=== PATIENT | female | born 1955 | race Two or more races ===

== ENCOUNTER 2024-12-25 14:03 | Observation (INO) ==
[2024-12-25] MEDS: ALBUT/IPRATROP 3MG/0.5MG NEB 3 ML VIAL NEB STA (14:30)
[2024-12-25 14:43] LABS: HCO3 VBG 27 mmol/L; Oxygen Saturation VBG 77.4 %; PCO2 VBG 40 mmHg (38-50); PO2 VBG 47 mmHg; pH VBG 7.43 (7.36-7.41)
--- NOTE | 2024-12-25 14:48 | XRay Report ---
XR chest 1V portable CLINICAL HISTORY: Chest pain, nonspecific COMPARISON STUDY: 12/13/2024 FINDINGS: Stable mild cardiomegaly with pulmonary vascular congestion. There is a small left pleural effusion and associated consolidation at the left lung base, increased. No pneumothorax. IMPRESSION: CHF with small left pleural effusion/consolidation left lung base. ACT 112: Negative or not required by law. Electronically signed by: Oneil Kirby M.D. 12/25/2024 2:46 PM
[2024-12-25 14:50] LABS: Basophils # (auto) 0.02 K/uL (0.00-0.20); Basophils % (auto) 0.3 %; Hematocrit (blood only) 37.2 % (37.0-47.0); Immature Granulocytes # (auto) 0.02 K/uL (0.01-0.20); Immature Granulocytes % (auto) 0.3 %; Lymphocytes # (auto) 0.91 K/uL (1.20-3.40); Mean Corpuscular Hemoglobin 27.5 pg (25.0-34.0); Mean Corpuscular Hgb Conc 32.3 g/dL (32.0-36.0); Mean Corpuscular Volume 85.1 fL (80.0-100.0); Mean Platelet Volume 9.5 fL (9.4-12.4); Monocytes # (auto) 0.51 K/uL (0.11-0.59); Monocytes % (auto) 7.8 %; Neutrophils # (auto) 5.04 K/uL (1.40-6.50); Neutrophils % (auto) 77.6 %; Platelet Count 641 K/uL (130-400); RDW Coefficient of Variation 17.1 % (11.5-14.5); RDW Standard Deviation 52.5 fL (36.4-46.3); Red Blood Count 4.37 M/uL (4.20-5.40)
[2024-12-25 15:08] LABS: Albumin Level 3.2 gm/dl (3.4-5.0); BUN Creatinine Ratio 37.9 (10-20); Bilirubin,Total 0.7 mg/dl (0.2-1.0); Calcium 9.2 mg/dl (8.6-10.3); Creatinine Clr Calc Pharmacy 30.1 ml/min; Globulin 3.3 gm/dl (2.5-4.0); Potassium 3.3 mmol/L (3.5-5.1); Total Protein 6.5 gm/dl (6.0-8.3)
[2024-12-25 15:14] LABS: Troponin I High Sensitivity 39.6 pg/ml (0-14)
--- NOTE | 2024-12-25 15:19 | Electrocardiogram Report ---
Test Reason : Blood Pressure : */* mmHG Vent. Rate : 92 BPM Atrial Rate : 92 BPM P-R Int : 174 ms QRS Dur : 112 ms QT Int : 376 ms P-R-T Axes : 3 10 97 degrees QTcB Int : 464 ms Normal sinus rhythm Incomplete left bundle block Minimal voltage criteria for LVH, may be normal variant ( Humble product ) Diffuse Minor Nonspecific T wave abnormality Abnormal ECG No previous ECGs available Confirmed by Agus Paredes ([id number]) on 12/25/2024 3:19:51 PM Referred By: REFERRED SELF Confirmed By: Agus Paredes
[2024-12-25 15:36] LABS: Adenovirus PCR Not Detected (NotDetected); Bordetella parapertussis PCR Not Detected (NotDetected); Bordetella pertussis PCR Not Detected (NotDetected); Chlamydia pneumoniae PCR Not Detected (NotDetected); Coronavirus 229E PCR Not Detected (NotDetected); Coronavirus CoV-2 (COVID19)PCR Not Detected (NotDetected); Coronavirus HKU1 PCR Not Detected (NotDetected); Coronavirus NL63 PCR Not Detected (NotDetected); Coronavirus OC43PCR Not Detected (NotDetected); Human Metapneumovirus PCR Not Detected (NotDetected); Influenza A PCR Not Detected (NotDetected); Influenza B PCR Not Detected (NotDetected); Mycoplasma pneumoniae PCR Not Detected (NotDetected); Parainfluenza Virus 1 PCR Not Detected (NotDetected); Parainfluenza Virus 2 PCR Not Detected (NotDetected); Parainfluenza Virus 3 PCR Not Detected (NotDetected); Parainfluenza Virus 4 PCR Not Detected (NotDetected); Respiratory Syncytial VirusPCR Not Detected (NotDetected); Rhinovirus/Enterovirus PCR Not Detected (NotDetected)
[2024-12-25 15:40] LABS: Partial Thromboplastin Ratio 1.3; Partial Thromboplastin Time 36 Seconds (21-31)
--- NOTE | 2024-12-25 18:00 | History & Physical Report ---
Date of Service December 25, 2024 Assessment & Plan (1) Acute diastolic CHF (congestive heart failure): Plan: The parenteral Lasix therapy. Cardiac echo. Monitor intake and output. Serial chest x-ray (2) Chest pain: Plan: Check left ventricular wall motion per cardiac echo. Serial troponins. Telemetry. Repeat EKG in the morning (3) Hypothyroidism: Plan: Continue current thyroid replacement. Check free T3 level and free T4 level (4) Hypertension: Plan: Amlodipine has been discontinued as possible contributor to peripheral edema. Will follow (5) Type 2 diabetes mellitus: Plan: ADA diet. Sliding scale coverage as necessary. She does not appear to be insulin-dependent (6) COPD (chronic obstructive pulmonary disease): Plan: With asthma. Currently stable. Continue inhaler therapy Plan Hopeful discharge to home sometime within the next 2 to 3 days History of Present Illness Chief Complaint: Dyspnea on exertion, chest pain, elevated troponin, weight gain with peripheral edema Primary Care Provider: Davy Lyons 69-year-old white female with gradually worsening peripheral edema and noticeable dyspnea on exertion. Vague chest discomfort symptoms. Troponin is mildly elevated but no acute EKG changes. Some of the peripheral edema may be due to amlodipine which has been discontinued but she may have an element of CHF seen on chest x-ray with left effusion. Potassium is slightly low at 3.3 and troponin is mildly elevated at 39 but no acute EKG changes although she has evidence of first-degree AV block with incomplete left bundle branch block. She denies cough fever or sputum production. Potassium is low at 3.3. She is on room air. She is admitted with suspected CHF along with chest discomfort and dyspnea along with mildly elevated troponin and hypokalemia. Allergies Allergy/AdvReac Type Severity Reaction Status Date / Time metformin Allergy Severe Verified 12/20/24 11:10 aspirin AdvReac Difficulty Verified 12/20/24 11:10 Breathing Home Medications Medication Instructions Recorded Confirmed Type fenofibrate micronized 200 mg 200 mg PO DAILY 06/19/19 12/25/24 History capsule multivitamin 1 tab PO DAILY 06/19/19 12/25/24 History gabapentin 600 mg tablet 600 mg PO DAILY PRN Other 07/10/20 12/25/24 History simvastatin 20 mg tablet 20 mg PO DAILY #90 tabs 07/10/20 12/25/24 History montelukast 10 mg tablet 10 mg PO DAILY #30 tabs 08/13/20 12/25/24 Rx (Singulair) fluoxetine 20 mg capsule (Prozac) 60 mg PO DAILY 07/06/23 12/25/24 History brexpiprazole 1 mg tablet (Rexulti) 3 mg PO DAILY 11/03/23 12/25/24 History mometasone-formoterol HFA 200 2 puff inhalation BID #1 inhaler 01/06/24 12/25/24 Rx mcg-5 mcg/actuation aerosol inhaler (Dulera) albuterol sulfate 2.5 mg/3 mL 2.5 mg (3 mL) inhalation Q4H PRN 03/02/24 12/25/24 Rx (0.083 %) solution for nebulization shortness of breath or wheezing #180 mL ergocalciferol (vitamin D2) 1,250 1,250 mcg PO .COMPLEX #30 caps 08/06/24 12/25/24 Rx mcg (50,000 unit) capsule amlodipine 2.5 mg tablet 2.5 mg PO DAILY #90 tabs 10/01/24 12/25/24 Rx albuterol sulfate 0.63 mg/3 mL 0.63 mg (3 mL) continuous 12/05/24 12/25/24 Rx solution for nebulization nebulization Q4H PRN shortness of breath or wheezing #90 mL levothyroxine 50 mcg tablet 50 mcg PO DAILY 12/05/24 12/25/24 History benzonatate 100 mg capsule 100 mg PO TID PRN cough #30 caps 12/13/24 12/25/24 Rx furosemide 20 mg tablet 40 mg PO DAILY 12/20/24 12/25/24 History clonazepam 0.5 mg tablet 0.5 mg PO BID PRN Anxiety 12/25/24 12/25/24 History ipratropium 20 mcg-albuterol 100 1 puff inhalation Q4H 12/25/24 12/25/24 History mcg/actuation mist for inhalation (Combivent Respimat) tezepelumab-ekko 210 mg/1.91 mL 210 mg subcut .Q4WKS 12/25/24 12/25/24 History (110 mg/mL) subcutaneous pen injector (Tezspire) tiotropium bromide 18 mcg capsule 18 mcg inhalation DAILY 12/25/24 12/25/24 History with inhalation device Past Med/Surg History Problem List (Updated 12/25/24 @ 17:58 by Phillip Mccloud MD) COPD (chronic obstructive pulmonary disease) Chest pain Acute diastolic CHF (congestive heart failure) Mild tricuspid regurgitation Mild mitral regurgitation Status post gastric bypass for obesity Hypothyroidism Hypertension Anemia Type 2 diabetes mellitus (Chronic) Severe persistent asthma Allergic rhinitis due to dust mite (Chronic) Allergic rhinitis due to animal hair and dander (Chronic) Dyslipidemia Non-proliferative diabetic retinopathy Peripheral neuropathy Seasonal allergies Stage III chronic kidney disease Venous insufficiency Family History Mother Hypertension Diabetes Father Diabetes Denies family history of Kidney disease Social History (Updated 12/20/24 @ 11:13 by Antonia Burton LPN) Smoking Status: Former smoker Tobacco Type: Cigarettes Age Started Using Tobacco: 21; Age Quit Using Tobacco: 63; packs per day: 2; Do You Dip or Chew Tobacco: No; Hx Alcohol Use: No Hx Substance Use: No Preferred Language: Indonesian Visual Impairment: No Limitations Hearing Ability: Normal Forming 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 Required: No Beliefs That Will Affect Care: None marital status: Current Living Situation: Alone current occupational status: disabled How many Children do You have: 0 Feels Safe at Home: Yes Diet: regular caffeine: Yes (2 coffees daily) Dental Care, Regularly: No Physical Activity Frequency: Does not Exercise Seatbelt Use: always Sunscreen Use: No Do you think of yourself as: straight/heterosexual Gender Identity: Female Assistive Devices: Glasses Review of Systems 2 Review of Systems: Constitutionalno fever or chills ENTno blurred vision, no double vision, no epistaxis, no sore throat Respiratoryno cough, no wheezing. Dyspnea on exertion Cardiacno palpitations, no syncope. Vague chest discomfort with exertion Ann nausea, vomiting, diarrhea, melena, hematochezia GUno urinary retention, no urinary incontinence, no dysuria, no hematuria Musculoskeletalno joint pain, no muscle tenderness Skinno bruising, no rashes, no pruritus Neurono isolated weakness, no paresthesia, no weakness Psychno depression, no anxiety Physical Exam 2 Physical Exam: General-alert and oriented x3, no fever, no chills HEENT-head atraumatic and normocephalic, pupils equal and reactive to light, extraocular muscles intact Neck-no lymphadenopathy or thyromegaly, trachea midline Chest-diminished breath sounds and dullness at the left base. No wheezing. No rhonchi Cardiac-regular rate and rhythm, normal S1 and S2 Abdomen-normal bowel sounds, no hepatosplenomegaly Extremities-2+ pitting edema bilaterally below the knees Neuro-cranial nerves II through XII intact, motor and sensory function within normal limits, strength symmetrical, no focal deficits Psych-normal affect, normal mood Results & Data Results & Data Vital Signs (Past 12 Hours) Vital Signs Temp Pulse Pulse Resp BP BP Pulse Ox 12/25/24 17:00 143/92 H 12/25/24 16:57 79 16 96 12/25/24 16:48 81 20 95 12/25/24 16:30 80 14 147/90 H 12/25/24 15:42 74 20 94 12/25/24 15:33 85 20 93 12/25/24 15:30 120/86 12/25/24 15:27 82 22 92 12/25/24 15:21 81 18 93 12/25/24 15:10 86 22 115/83 95 12/25/24 15:08 85 12/25/24 14:32 88 20 94 12/25/24 14:11 36.4 C L 97 H 20 148/83 H 95 O2 Del Method 12/25/24 17:00 12/25/24 16:57 Room Air 12/25/24 16:48 Room Air 12/25/24 16:30 12/25/24 15:42 Room Air 12/25/24 15:33 Room Air 12/25/24 15:30 12/25/24 15:27 Room Air 12/25/24 15:21 Room Air 12/25/24 15:10 Room Air 12/25/24 15:08 12/25/24 14:32 Room Air 12/25/24 14:11 Room Air Laboratory Results 12/25/24 14:30 12/25/24 14:30 Code Status & VTE Plan Code Status Full code PG Care Time/CCT Total # of Minutes Spent Total Time Spent with Patient: Total time spent is greater than 50% in coordination of care (as documented) at patient's floor/unit and/or counseling patient: Coding Level of Care Code 33627 INT INP/OBS CARE 3/75MIN Diagnoses Acute diastolic CHF (congestive heart failure) I50.31 Chest pain R07.9 Hypothyroidism E03.9 Primary hypertension I10 Hypertension type: primary hypertension Type 2 diabetes mellitus E11.9 COPD (chronic obstructive pulmonary disease) J44.9 (4) Hypertension Hypertension type: primary hypertension Qualified Code(s): I10 - Essential (primary) hypertension
--- NOTE | 2024-12-25 19:38 | Emergency Department Note ---
History of Present Illness General Chief Complaint: Asthma Stated Complaint: ASTHMA/TROUBLE BREATHING, EDEMA IN BOTH LEGS Time Seen by Provider: 12/25/24 14:19 History of Present Illness Provider Complaint: shortness of breath, cough, chest pain and "asthma attack" Onset (ago): week(s) (2) Consistency/Duration: + progressively worsening Relieved By: + nothing Exacerbated By: + lying flat, + exertion and + coughing Known history of: COPD and congestive heart failure Associated symptoms: + cough, + wheezing, + orthopnea and + chest congestion; no fever, no sputum production, no lower extremity pain or no hemoptysis Home Medications Medication Instructions Recorded Confirmed Type fenofibrate micronized 200 mg 200 mg PO DAILY 06/19/19 12/25/24 History capsule multivitamin 1 tab PO DAILY 06/19/19 12/25/24 History gabapentin 600 mg tablet 600 mg PO DAILY PRN Other 07/10/20 12/25/24 History simvastatin 20 mg tablet 20 mg PO DAILY #90 tabs 07/10/20 12/25/24 History montelukast 10 mg tablet 10 mg PO DAILY #30 tabs 08/13/20 12/25/24 Rx (Singulair) fluoxetine 20 mg capsule (Prozac) 60 mg PO DAILY 07/06/23 12/25/24 History brexpiprazole 1 mg tablet (Rexulti) 3 mg PO DAILY 11/03/23 12/25/24 History mometasone-formoterol HFA 200 2 puff inhalation BID #1 inhaler 01/06/24 12/25/24 Rx mcg-5 mcg/actuation aerosol inhaler (Dulera) albuterol sulfate 2.5 mg/3 mL 2.5 mg (3 mL) inhalation Q4H PRN 03/02/24 12/25/24 Rx (0.083 %) solution for nebulization shortness of breath or wheezing #180 mL ergocalciferol (vitamin D2) 1,250 1,250 mcg PO .COMPLEX #30 caps 08/06/24 12/25/24 Rx mcg (50,000 unit) capsule amlodipine 2.5 mg tablet 2.5 mg PO DAILY #90 tabs 10/01/24 12/25/24 Rx albuterol sulfate 0.63 mg/3 mL 0.63 mg (3 mL) continuous 12/05/24 12/25/24 Rx solution for nebulization nebulization Q4H PRN shortness of breath or wheezing #90 mL levothyroxine 50 mcg tablet 50 mcg PO DAILY 12/05/24 12/25/24 History benzonatate 100 mg capsule 100 mg PO TID PRN cough #30 caps 12/13/24 12/25/24 Rx furosemide 20 mg tablet 40 mg PO DAILY 12/20/24 12/25/24 History clonazepam 0.5 mg tablet 0.5 mg PO BID PRN Anxiety 12/25/24 12/25/24 History insulin glargine 100 unit/mL (3 20 unit subcut QPM 12/25/24 12/25/24 History mL) subcutaneous pen (Lantus Solostar U-100 Insulin) insulin lispro 100 unit/mL 8 unit subcut ACHS 12/25/24 12/25/24 History subcutaneous pen (Humalog KwikPen (U-100) Insulin) ipratropium 20 mcg-albuterol 100 1 puff inhalation Q4H 12/25/24 12/25/24 History mcg/actuation mist for inhalation (Combivent Respimat) tezepelumab-ekko 210 mg/1.91 mL 210 mg subcut .Q4WKS 12/25/24 12/25/24 History (110 mg/mL) subcutaneous pen injector (Tezspire) tiotropium bromide 18 mcg capsule 18 mcg inhalation DAILY 12/25/24 12/25/24 History with inhalation device Allergies Allergy/AdvReac Type Severity Reaction Status Date / Time metformin Allergy Severe Verified 12/20/24 11:10 aspirin AdvReac Difficulty Verified 12/20/24 11:10 Breathing Past Med/Surg History Problem List (Updated 12/25/24 @ 19:48 by Devonte Boothe MD) Elevated troponin (Acute) Chest pain (Acute) Dyspnea (Acute) Chest pain Acute diastolic CHF (congestive heart failure) Status post gastric bypass for obesity Hypothyroidism Allergic rhinitis due to dust mite (Chronic) Allergic rhinitis due to animal hair and dander (Chronic) Peripheral neuropathy Seasonal allergies Medical History (Updated 12/25/24 @ 19:48 by Devonte Boothe MD) COPD (chronic obstructive pulmonary disease) Mild tricuspid regurgitation Mild mitral regurgitation Severe persistent asthma Type 2 diabetes mellitus Anemia Dyslipidemia Hypertension Non-proliferative diabetic retinopathy Stage III chronic kidney disease Venous insufficiency Family History Mother Hypertension Diabetes Father Diabetes Denies family history of Kidney disease Social History Smoking Status: Former smoker Tobacco Type: Cigarettes Age Started Using Tobacco: 21; Age Quit Using Tobacco: 63; packs per day: 2; Do You Dip or Chew Tobacco: No; Hx Alcohol Use: No Hx Substance Use: No Preferred Language: Mohawk Visual Impairment: No Limitations Hearing Ability: Normal Filing Or Registry Clerk Required: No Beliefs That Will Affect Care: None marital status: Current Living Situation: Alone current occupational status: disabled How many Children do You have: 0 Feels Safe at Home: Yes Diet: regular caffeine: Yes (2 coffees daily) Dental Care, Regularly: No Physical Activity Frequency: Does not Exercise Seatbelt Use: always Sunscreen Use: No Do you think of yourself as: straight/heterosexual Gender Identity: Female Assistive Devices: Glasses Physical Exam 2 Vital Signs: Vital Signs - 24 hr 12/25/24 14:11 12/25/24 14:32 12/25/24 15:08 Temperature 36.4 C L Temperature Source Temporal Artery Sc an Pulse Rate 97 H 85 Pulse Rate [Left A pical] 88 Respiratory Rate 20 20 Respiratory Effort / Characteristics Non-Labored Sponta neous Spontaneous Short of Breath Respiratory Depth Normal Normal Respiratory Patter n Regular Blood Pressure 148/83 H Blood Pressure [Ri ght Arm] Blood Pressure Brenda n 104 Blood Pressure Brenda n [Right Arm] Blood Pressure Pos ition Sitting Pulse Oximetry 95 94 Oxygen Delivery Me thod Room Air Room Air Sepsis Recent Feve r Within 48 Hours No Sepsis New/Unexpla ined Change in Men marvel Status N/A Sepsis Action Take n by Nursing No Action Required 12/25/24 15:10 12/25/24 15:21 12/25/24 15:27 Temperature Temperature Source Pulse Rate 81 82 Pulse Rate [Left A pical] 86 Respiratory Rate 22 18 22 Respiratory Effort / Characteristics Non-Labored Sponta neous Respiratory Depth Normal Respiratory Patter n Regular Blood Pressure Blood Pressure [Ri ght Arm] 115/83 Blood Pressure Brenda n Blood Pressure Brenda n [Right Arm] 93 Blood Pressure Pos ition Pulse Oximetry 95 93 92 Oxygen Delivery Me thod Room Air Room Air Room Air Sepsis Recent Feve r Within 48 Hours Sepsis New/Unexpla ined Change in Men marvel Status Sepsis Action Take n by Nursing 12/25/24 15:30 12/25/24 15:33 12/25/24 15:42 Temperature Temperature Source Pulse Rate 85 74 Pulse Rate [Left A pical] Respiratory Rate 20 20 Respiratory Effort / Characteristics Respiratory Depth Respiratory Patter n Blood Pressure 120/86 Blood Pressure [Ri ght Arm] Blood Pressure Brenda n 99 Blood Pressure Brenda n [Right Arm] Blood Pressure Pos ition Pulse Oximetry 93 94 Oxygen Delivery Me thod Room Air Room Air Sepsis Recent Feve r Within 48 Hours Sepsis New/Unexpla ined Change in Men marvel Status Sepsis Action Take n by Nursing 12/25/24 16:30 12/25/24 16:48 12/25/24 16:57 Temperature Temperature Source Pulse Rate 80 81 79 Pulse Rate [Left A pical] Respiratory Rate 14 20 16 Respiratory Effort / Characteristics Respiratory Depth Respiratory Patter n Blood Pressure 147/90 H Blood Pressure [Ri ght Arm] Blood Pressure Brenda n 109 Blood Pressure Brenda n [Right Arm] Blood Pressure Pos ition Pulse Oximetry 95 96 Oxygen Delivery Me thod Room Air Room Air Sepsis Recent Feve r Within 48 Hours Sepsis New/Unexpla ined Change in Men marvel Status Sepsis Action Take n by Nursing 12/25/24 17:00 12/25/24 17:30 12/25/24 18:00 Temperature Temperature Source Pulse Rate 79 78 Pulse Rate [Left A pical] Respiratory Rate 18 17 Respiratory Effort / Characteristics Respiratory Depth Respiratory Patter n Blood Pressure 143/92 H 142/80 H Blood Pressure [Ri ght Arm] Blood Pressure Brenda n 114 100 Blood Pressure Brenda n [Right Arm] Blood Pressure Pos ition Pulse Oximetry 95 Oxygen Delivery Me thod Room Air Sepsis Recent Feve r Within 48 Hours Sepsis New/Unexpla ined Change in Men marvel Status Sepsis Action Take n by Nursing 12/25/24 18:01 12/25/24 18:31 12/25/24 18:36 Temperature Temperature Source Pulse Rate 80 Pulse Rate [Left A pical] Respiratory Rate 17 Respiratory Effort / Characteristics Respiratory Depth Respiratory Patter n Blood Pressure 148/70 H 137/84 Blood Pressure [Ri ght Arm] Blood Pressure Brenda n 95 87 Blood Pressure Brenda n [Right Arm] Blood Pressure Pos ition Pulse Oximetry Oxygen Delivery Me thod Sepsis Recent Feve r Within 48 Hours Sepsis New/Unexpla ined Change in Men marvel Status Sepsis Action Take n by Nursing 12/25/24 18:44 12/25/24 18:45 12/25/24 19:01 Temperature Temperature Source Pulse Rate 78 84 Pulse Rate [Left A pical] Respiratory Rate 17 Respiratory Effort / Characteristics Respiratory Depth Respiratory Patter n Blood Pressure 139/94 Blood Pressure [Ri ght Arm] Blood Pressure Brenda n 116 Blood Pressure Brenda n [Right Arm] Blood Pressure Pos ition Pulse Oximetry 95 Oxygen Delivery Me thod Room Air Sepsis Recent Feve r Within 48 Hours Sepsis New/Unexpla ined Change in Men marvel Status Sepsis Action Take n by Nursing Physical Exam: Physical Exam GENERAL: oriented to person, place, and time. appears well-developed and well- nourished. HENT: Exam performed. - Head: Normocephalic and atraumatic. EYES: Conjunctivae and EOM are normal. Right eye exhibits no discharge. Left eye exhibits no discharge. No scleral icterus. NECK: Normal range of motion. Neck supple. No JVD present. CV: Normal rate, regular rhythm, normal heart sounds and intact distal pulses. 2+ pitting edema of the bilateral lower extremities. Palpable radial pulses bue. PULM/CHEST: Diminished breath sounds bilaterally, rhonchi bilaterally. ABD: The abdomen is soft. There is no tenderness. NEURO: Motor and sensation grossly intact. SKIN: Skin is warm and dry. He is not diaphoretic. PSYCH: normal mood and affect. Behavior is normal. Judgment and thought content normal. Course Course 1419: The patient was evaluated in room B12. A complete history and physical exam was performed Cardiac monitoring: An order was placed for continuous cardiac monitoring. The monitor shows a rate of 90 with sinus rhythm interpreted by me 1600: Vital signs stable. Status post DuoNeb treatment the patient lungs do have better air movement. There is wheezing and rhonchi bilaterally. Labs show normal white blood cell count. INR of 2. VBG is unremarkable. Labs show BNP of 43 but a high-sensitivity troponin of 39.6. Patient will be admitted to the [facility] team for further workup. Administered Medications Discontinued Medications Albuterol (Albut/Ipratrop 3mg/0.5mg Neb 3 Ml Vial) 3 ml NEB NOW STA; Protocol Stop: 12/25/24 14:28 Last Admin: 12/25/24 14:30 Dose: 3 ml Documented By: [facility] Medical Decision Making Laboratory Data Attestation: I reviewed the patient's lab results. 12/25/24 14:30 12/25/24 14:30 Lab Results 12/25/24 12/25/24 12/25/24 Range/Units 14:30 16:56 17:00 WBC 6.50 (4.8-10.8) K/ul RBC 4.37 (4.20-5.40) M/uL Hgb 12.0 (12.0-16.0) g/dl Hct 37.2 (37.0-47.0) % MCV 85.1 (80.0-100.0) fL MCH 27.5 (25.0-34.0) pg MCHC 32.3 (32.0-36.0) g/dL RDW Std Deviation 52.5 H (36.4-46.3) fL RDW Coeff of Sol 17.1 H (11.5-14.5) % Plt Count 641 H (130-400) K/uL MPV 9.5 (9.4-12.4) fL Immature Gran % (Auto) 0.3 % Neut % (Auto) 77.6 % Lymph % (Auto) 14.0 % [place] % (Auto) 7.8 % Eos % (Auto) 0.0 % Baso % (Auto) 0.3 % Neut # (Auto) 5.04 (1.40-6.50) K/uL Lymph # (Auto) 0.91 L (1.20-3.40) K/uL [place] # (Auto) 0.51 (0.11-0.59) K/uL Eos # (Auto) 0.00 (0.00-0.50) K/uL Baso # (Auto) 0.02 (0.00-0.20) K/uL Immature Gran # (Auto) 0.02 (0.01-0.20) K/uL PT 20.0 H (9.0-12.0) Seconds INR 2.0 H (0.9-1.1) APTT 36 H (21-31) Seconds PTT Ratio 1.3 VBG pH 7.43 H (7.36-7.41) VBG pCO2 40 (38-50) mmHg VBG pO2 47 mmHg VBG HCO3 27 mmol/L VBG O2 Saturation 77.4 % VBG Base Excess 2.0 mEq/L Sodium 138 (136-145) mmol/L Potassium 3.3 L (3.5-5.1) mmol/L Chloride 98 (98-107) mmol/L Carbon Dioxide 28 (21-32) mmol/L Anion Gap 12 H (3-11) BUN 64 H (6-23) mg/dl Creatinine 1.69 H (0.6-1.2) mg/dl Est Cr Clr Drug Dosing 30.1 ml/min eGFR 32.90 BUN/Creatinine Ratio 37.9 H (10-20) Glucose 178 H (70-99(Fasting)) mg/dl Calcium 9.2 (8.6-10.3) mg/dl Total Bilirubin 0.7 (0.2-1.0) mg/dl AST 61 H (13-39) U/L ALT 38 (7-52) U/L Alkaline Phosphatase 106 H (34-104) U/L Troponin I High Sens 39.6 H 40.1 H (0-14) pg/ml B-Natriuretic Peptide 54 43 (0-100) pg/ml Total Protein 6.5 (6.0-8.3) gm/dl Albumin 3.2 L (3.4-5.0) gm/dl Globulin 3.3 (2.5-4.0) gm/dl Albumin/Globulin Ratio 1.0 (0.9-2) Procalcitonin 0.26 (0-0.5) ng/ml Adenovirus (PCR) Not Detected (NotDetected) B. pertussis DNA (PCR) Not Detected (NotDetected) B.parapertussis DNA PCR Not Detected (NotDetected) C. pneumoniae DNA (PCR) Not Detected (NotDetected) Coronavirus OC43 (PCR) Not Detected (NotDetected) Coronavirus HKU1 (PCR) Not Detected (NotDetected) Coronavirus 229E (PCR) Not Detected (NotDetected) SARS-CoV-2 (PCR) Not Detected (NotDetected) Coronavirus NL63 (PCR) Not Detected (NotDetected) Human Metapneumovir PCR Not Detected (NotDetected) Influenza Type A (PCR) Not Detected (NotDetected) Influenza Type B (PCR) Not Detected (NotDetected) M. pneumoniae (PCR) Not Detected (NotDetected) Parainfluenza 1 (PCR) Not Detected (NotDetected) Parainfluenza 2 (PCR) Not Detected (NotDetected) Parainfluenza 3 (PCR) Not Detected (NotDetected) Parainfluenza 4 (PCR) Not Detected (NotDetected) RSV (PCR) Not Detected (NotDetected) Entero/Rhino (PCR) Not Detected (NotDetected) Imaging Data Attestation: I personally reviewed and interpreted this imaging study as follows: My Impression: Chest x-ray: Left-sided pleural effusion Radiologist's Impression: Chest X-Ray 12/25/24 14:15 XR chest 1V portable CLINICAL HISTORY: Chest pain, nonspecific COMPARISON STUDY: 12/13/2024 FINDINGS: Stable mild cardiomegaly with pulmonary vascular congestion. There is a small left pleural effusion and associated consolidation at the left lung base, increased. No pneumothorax. IMPRESSION: CHF with small left pleural effusion/consolidation left lung base. ACT 112: Negative or not required by law. Electronically signed by: Oneil Kirby M.D. 12/25/2024 2:46 PM [facility] Narrative 1419: The patient was evaluated in room B12. A complete history and physical exam was performed Cardiac monitoring: An order was placed for continuous cardiac monitoring. The monitor shows a rate of 90 with sinus rhythm interpreted by nh 1600: Vital signs stable. Status post DuoNeb treatment the patient lungs do have better air movement. There is wheezing and rhonchi bilaterally. Labs show normal white blood cell count. INR of 2. VBG is unremarkable. Labs show BNP of 43 but a high-sensitivity troponin of 39.6. Patient will be admitted to the [facility] team for further workup. Impression & Plan Dyspnea, Chest pain, Elevated troponin Discharge Plan Visit Data Chief Complaint: Asthma Stated Complaint: ASTHMA/TROUBLE BREATHING, EDEMA IN BOTH LEGS ED Provider: Devonte Boothe Discharge Problem: Dyspnea, Chest pain, Elevated troponin Patient Disposition: Admitted As Inpatient Forms Stand Alone Forms: My [facility] Prescriptions Prescriptions: No Action Dulera 200-5 mcg/actuation HFA aerosol inhaler 2 puff inhalation BID Qty: 1 11RF ergocalciferol (vitamin D2) 1,250 mcg (50,000 unit) capsule 1,250 mcg PO .COMPLEX Qty: 30 3RF Rx Instructions: 1,250 mcg PO twice weekly amlodipine 2.5 mg tablet 2.5 mg PO DAILY Qty: 90 3RF Hold Instructions: Home Medication placed on hold at Doctor's office montelukast [Singulair] 10 mg tablet 10 mg PO DAILY Qty: 30 11RF fluoxetine [Prozac] 20 mg capsule 60 mg PO DAILY Rexulti 1 mg tablet 3 mg PO DAILY fenofibrate micronized 200 mg capsule 200 mg PO DAILY multivitamin tablet 1 tab PO DAILY gabapentin 600 mg tablet 600 mg PO DAILY PRN (Reason: Other) simvastatin 20 mg tablet 20 mg PO DAILY Qty: 90 albuterol sulfate 2.5 mg /3 mL (0.083 %) solution for nebulization 2.5 mg inhalation Q4H PRN (Reason: shortness of breath or wheezing) Qty: 180 6RF levothyroxine 50 mcg tablet 50 mcg PO DAILY albuterol sulfate 0.63 mg/3 mL solution for nebulization 0.63 mg continuous nebulization Q4H PRN (Reason: shortness of breath or wheezing) Qty: 90 1RF benzonatate 100 mg capsule 100 mg PO TID PRN (Reason: cough) Qty: 30 1RF furosemide 20 mg tablet 40 mg PO DAILY clonazepam 0.5 mg tablet 0.5 mg PO BID PRN (Reason: Anxiety) tiotropium bromide 18 mcg capsule, w/inhalation device 18 mcg inhalation DAILY Rx Instructions: INHALE CONTENTS OF 1 CAPSULE BY MOUTH DAILY. DO NOT SWALLOW Combivent Respimat 20-100 mcg/actuation mist 1 puff inhalation Q4H MDD 6PUFFS/24H Rx Instructions: INHALE 1 PUFF BY MOUTH EVERY 4 HOURS NOT TO EXCEED 6 PUFFS IN 24 HOURS Tezspire 210 mg/1.91 mL (110 mg/mL) pen injector 210 mg subcut .Q4WKS Rx Instructions: INJECT 210 MG SUBCUTANEOUSLY EVERY 4 WEEKS insulin lispro [Humalog KwikPen Insulin] 100 unit/mL insulin pen 8 unit SUBCUT ACHS insulin glargine [Lantus Solostar U-100 Insulin] 100 unit/mL (3 mL) insulin pen 20 unit SUBCUT QPM Referrals Referrals: Davy Lyons [Primary Care Provider] -
[2024-12-25] MEDS ORDERED: clonazePAM 0.5 MG TAB PO PRN (20:24)
[2024-12-25] MEDS: FUROSEMIDE 40 MG/4 ML VIAL IV SCH (20:55)
[2024-12-25] MEDS: POTASSIUM CHLORIDE CRTAB 20 MEQ TABCR PO SCH (20:55)
[2024-12-25] MEDS ORDERED: IPRATROPIUM BROMIDE/ALBUTEROL respimat INH INH SCH (21:00)
[2024-12-25] MEDS: MONTELUKAST SODIUM 10 MG TABLET PO SCH (21:03)
[2024-12-25 21:38] LABS: Troponin I High Sensitivity 49.9 pg/ml (0-14)
[2024-12-26] MEDS: *FENOFIBRATE*ORDER AWAITING ACTION SCH (01:03)
[2024-12-26 02:43] LABS: Basophils # (auto) 0.02 K/uL (0.00-0.20); Basophils % (auto) 0.3 %; Eosinophils # (auto) 0.03 K/uL (0.00-0.50); Eosinophils % (auto) 0.5 %; Hematocrit (blood only) 33.1 % (37.0-47.0); Hemoglobin 10.8 g/dl (12.0-16.0); Immature Granulocytes # (auto) 0.02 K/uL (0.01-0.20); Immature Granulocytes % (auto) 0.3 %; Lymphocytes # (auto) 1.47 K/uL (1.20-3.40); Lymphocytes % (auto) 23.3 %; Mean Corpuscular Hemoglobin 27.6 pg (25.0-34.0); Mean Corpuscular Hgb Conc 32.6 g/dL (32.0-36.0); Mean Corpuscular Volume 84.7 fL (80.0-100.0); Mean Platelet Volume 9.4 fL (9.4-12.4); Monocytes # (auto) 0.91 K/uL (0.11-0.59); Monocytes % (auto) 14.4 %; Neutrophils # (auto) 3.87 K/uL (1.40-6.50); Neutrophils % (auto) 61.2 %; Platelet Count 539 K/uL (130-400); RDW Standard Deviation 52.2 fL (36.4-46.3); Red Blood Count 3.91 M/uL (4.20-5.40); White Blood Count 6.32 K/ul (4.8-10.8)
[2024-12-26 02:49] VITALS: TEMP 97.9
[2024-12-26 02:56] LABS: BUN Creatinine Ratio 41.4 (10-20); Calcium 8.3 mg/dl (8.6-10.3); Creatinine Clr Calc Pharmacy 32.4 ml/min; Potassium 3.4 mmol/L (3.5-5.1)
[2024-12-26] MEDS: LEVOTHYROXINE SODIUM 50 MCG TABLET PO SCH (06:04)
[2024-12-26] MEDS: Albuterol HFA 8 GM Inhaler (Combivent Respimat P&T Subs) INH SCH (06:06)
[2024-12-26] MEDS: Ipratropium HFA Inhaler (Combivent Respimat P&T Subs) INH SCH (07:13)
[2024-12-26 08:56] VITALS: PULSE 78; RESP 19; O2SAT 96
[2024-12-26] MEDS: FLUoxetine HCL 20 MG CAP PO SCH (09:16)
[2024-12-26] MEDS: UMECLIDINIUM BROMIDE 62.5MCG/BLISTER 7 PUFFS/INHALER INH SCH (09:17)
[2024-12-26] MEDS: FLUTICASONE/VILANTEROL 100/25MCG 14 PUFFS/INHALER INH SCH (09:17)
[2024-12-26] MEDS: MULTIVITAMIN TAB PO SCH (09:17)
[2024-12-26] MEDS: SIMVASTATIN 20 MG TAB PO SCH (09:17)
[2024-12-26] MEDS ORDERED: FENOFIBRATE 200 MG PO SCH (10:45)
--- NOTE | 2024-12-26 11:06 | Discharge Summary ---
Discharge Summary Date of Service December 26, 2024 Principal Dx & Hospital Course #1 = Principal Diagnosis (1) Acute diastolic CHF (congestive heart failure): Ruled out. No response to intravenous Lasix. Peripheral edema appears to be due to amlodipine which has been discontinued. Cardiac echo was apparently not done. (2) Chest pain: Resolved. EKG #2 is negative for acute changes. This appears to be atypical chest discomfort and can be further investigated with outpatient stress test (3) Hypothyroidism: Continue current thyroid replacement. Free T3 level is slightly low and free T4 level is slightly elevated. This can be further evaluated as an outpatient (4) Hypertension: Amlodipine has been discontinued as possible contributor to peripheral edema. Will follow (5) Type 2 diabetes mellitus: ADA diet. Sliding scale coverage as necessary. She does not appear to be insulin-dependent (6) COPD (chronic obstructive pulmonary disease): With asthma. Currently stable. Continue inhaler therapy Plan Home today, December 26. Follow-up with PCP as soon as possible for consideration for outpatient stress testing. Amlodipine has been discontinued. Admission HPI Per Admitting Provider 69-year-old white female with gradually worsening peripheral edema and noticeable dyspnea on exertion. Vague chest discomfort symptoms. Troponin is mildly elevated but no acute EKG changes. Some of the peripheral edema may be due to amlodipine which has been discontinued but she may have an element of CHF seen on chest x-ray with left effusion. Potassium is slightly low at 3.3 and troponin is mildly elevated at 39 but no acute EKG changes although she has evidence of first-degree AV block with incomplete left bundle branch block. She denies cough fever or sputum production. Potassium is low at 3.3. She is on room air. She is admitted with suspected CHF along with chest discomfort and dyspnea along with mildly elevated troponin and hypokalemia. Discharge Exam General-alert and oriented x3, no fever, no chills HEENT-head atraumatic and normocephalic, pupils equal and reactive to light, extraocular muscles intact Neck-no lymphadenopathy or thyromegaly, trachea midline Chest-diminished breath sounds and dullness at the left base. No wheezing. No rhonchi Cardiac-regular rate and rhythm, normal S1 and S2 Abdomen-normal bowel sounds, no hepatosplenomegaly Extremities-2+ pitting edema bilaterally below the knees Neuro-cranial nerves II through XII intact, motor and sensory function within normal limits, strength symmetrical, no focal deficits Psych-normal affect, normal mood Discharge Plan Discharge Items Patient Disposition: Home - Self-Care Reason For Visit: BARDALES, CHF Discharge Diagnosis: Peripheral edema probably from amlodipine, dyspnea on exertion and atypical chest discomfort without acute coronary syndrome Activity: Resume your previous activity Non-emergency contact: Primary Care Provider Call non-emergency contact if: your symptoms worsen Follow-up/Referrals: Davy Lyons [Primary Care Provider] - Diet: Carb Consistent or DM2 Addtl Attending Provider Instructions: Stop amlodipine. Other medications remain the same. See primary care provider as soon as possible for consideration for outpatient stress testing Pending Studies at Discharge: No Stand-Alone Forms: My [employer], Smoking Cessation Medications and DC Order Prescriptions: Continued Dulera 200-5 mcg/actuation HFA aerosol inhaler 2 puff inhalation BID Qty: 1 11RF ergocalciferol (vitamin D2) 1,250 mcg (50,000 unit) capsule 1,250 mcg PO .COMPLEX Qty: 30 3RF Rx Instructions: 1,250 mcg PO twice weekly montelukast [Singulair] 10 mg tablet 10 mg PO DAILY Qty: 30 11RF fluoxetine [Prozac] 20 mg capsule 60 mg PO DAILY Rexulti 1 mg tablet 3 mg PO DAILY fenofibrate micronized 200 mg capsule 200 mg PO DAILY multivitamin tablet 1 tab PO DAILY gabapentin 600 mg tablet 600 mg PO DAILY PRN (Reason: Other) simvastatin 20 mg tablet 20 mg PO DAILY Qty: 90 albuterol sulfate 2.5 mg /3 mL (0.083 %) solution for nebulization 2.5 mg inhalation Q4H PRN (Reason: shortness of breath or wheezing) Qty: 180 6RF levothyroxine 50 mcg tablet 50 mcg PO DAILY albuterol sulfate 0.63 mg/3 mL solution for nebulization 0.63 mg continuous nebulization Q4H PRN (Reason: shortness of breath or wheezing) Qty: 90 1RF benzonatate 100 mg capsule 100 mg PO TID PRN (Reason: cough) Qty: 30 1RF furosemide 20 mg tablet 40 mg PO DAILY clonazepam 0.5 mg tablet 0.5 mg PO BID PRN (Reason: Anxiety) tiotropium bromide 18 mcg capsule, w/inhalation device 18 mcg inhalation DAILY Rx Instructions: INHALE CONTENTS OF 1 CAPSULE BY MOUTH DAILY. DO NOT SWALLOW Combivent Respimat 20-100 mcg/actuation mist 1 puff inhalation Q4H MDD 6PUFFS/24H Rx Instructions: INHALE 1 PUFF BY MOUTH EVERY 4 HOURS NOT TO EXCEED 6 PUFFS IN 24 HOURS Tezspire 210 mg/1.91 mL (110 mg/mL) pen injector 210 mg subcut .Q4WKS Rx Instructions: INJECT 210 MG SUBCUTANEOUSLY EVERY 4 WEEKS insulin lispro [Humalog KwikPen Insulin] 100 unit/mL insulin pen 8 unit SUBCUT ACHS insulin glargine [Lantus Solostar U-100 Insulin] 100 unit/mL (3 mL) insulin pen 20 unit SUBCUT QPM Discontinued amlodipine 2.5 mg tablet 2.5 mg PO DAILY Qty: 90 3RF Hold Instructions: Home Medication placed on hold at Doctor's office Discharge Orders: Discharge Order (Routine); Ordered 12/26/24 Ordered By: Phillip Vela/Other Patient Handouts: Managing Type 2 Diabetes, Special Foot [facility] for Diabetes Admission Data Admit Date/Time: 12/25/24 17:45 Attending Provider: Phillip Mccloud Admit Provider: Phillip Mccloud Primary Care Provider: Davy Lyons Other Providers: Yaw James Hospital Stay Data Consultations 12/25/24 16:02 ED Decision to Admit Stat Pending Results Patient Have Any Pending Studies at Discharge: No Discharge Instructions Given to Patient (Per Discharging Provider) Stop amlodipine. Other medications remain the same. See primary care provider as soon as possible for consideration for outpatient stress testing Total Time Total Time Spent Total Time Spent (In Minutes): 45 minutes Coding Level of Care Code 06013 INP/OBS DISCH >30 MIN Diagnoses Acute diastolic CHF (congestive heart failure) I50.31 Chest pain R07.9 Hypothyroidism E03.9 Primary hypertension I10 Hypertension type: primary hypertension Type 2 diabetes mellitus E11.9 COPD (chronic obstructive pulmonary disease) J44.9
[2024-12-26 11:23] VITALS: BP 148/95
--- NOTE | 2024-12-26 14:48 | XCELERA ---
[id number] [id number]
--- NOTE | 2024-12-26 14:53 | Electrocardiogram Report ---
Test Reason : Blood Pressure : */* mmHG Vent. Rate : 83 BPM Atrial Rate : 83 BPM P-R Int : 184 ms QRS Dur : 104 ms QT Int : 436 ms P-R-T Axes : 85 -17 77 degrees QTcB Int : 512 ms Normal sinus rhythm Voltage criteria for left ventricular hypertrophy Diffuse Nonspecific T wave abnormality Borderline ECG When compared with ECG of 25-Dec-2024 14:24, No significant change was found Confirmed by Agus Paredes ([id number]) on 12/26/2024 2:53:24 PM Referred By: REFERRED SELF Confirmed By: Agus Paredes
[2024-12-27] MEDS ORDERED: FENOFIBRATE 200 MG PO SCH (09:00)
== END 2024-12-26 12:51 | disposition home or self-care (01) | DRG 291 ==
LOC: ED 14:03 → SUATTDRO 17:45 → INTOOBSV 17:45 → EDINP 17:45

== ENCOUNTER 2025-01-01 13:10 | Inpatient (IN) ==
[2025-01-01 14:44] LABS: Hematocrit (blood only) 33.9 % (37.0-47.0); Hemoglobin 11.1 g/dl (12.0-16.0); Mean Corpuscular Hemoglobin 27.8 pg (25.0-34.0); Mean Corpuscular Hgb Conc 32.7 g/dL (32.0-36.0); Mean Platelet Volume 9.3 fL (9.4-12.4); Platelet Count 707 K/uL (130-400); RDW Coefficient of Variation 17.6 % (11.5-14.5); RDW Standard Deviation 53.5 fL (36.4-46.3); Red Blood Count 3.99 M/uL (4.20-5.40); White Blood Count 9.03 K/ul (4.8-10.8)
[2025-01-01 15:03] LABS: Immature Granulocytes # (auto) 0.04 K/uL (0.01-0.20); Immature Granulocytes % (auto) 0.4 %; Lymphocytes # (auto) 0.23 K/uL (1.20-3.40); Lymphocytes % (auto) 2.5 %; Monocytes # (auto) 0.23 K/uL (0.11-0.59); Monocytes % (auto) 2.5 %; Neutrophils # (auto) 8.53 K/uL (1.40-6.50); Neutrophils % (auto) 94.6 %; Target Cells 1+
[2025-01-01 15:05] LABS: Albumin Globulin Ratio 0.9 (0.9-2); Albumin Level 3.1 gm/dl (3.4-5.0); BUN Creatinine Ratio 55.5 (10-20); Bilirubin,Total 0.7 mg/dl (0.2-1.0); Calcium 8.9 mg/dl (8.6-10.3); Creatinine Clr Calc Pharmacy 37.6 ml/min; Globulin 3.3 gm/dl (2.5-4.0); Potassium 3.7 mmol/L (3.5-5.1); Total Protein 6.4 gm/dl (6.0-8.3)
[2025-01-01 15:08] LABS: INR 2.4 (0.9-1.1); Partial Thromboplastin Ratio 1.3; Partial Thromboplastin Time 36 Seconds (21-31)
[2025-01-01 15:18] LABS: Troponin I High Sensitivity 80.5 pg/ml (0-14)
--- NOTE | 2025-01-01 15:20 | XRay Report ---
XR chest 1V not portable CLINICAL HISTORY: Chest pain, nonspecific COMPARISON STUDY: Chest radiograph December 25, 2024. FINDINGS: There is no pneumothorax. Small left pleural effusion is unchanged. Bibasilar opacities fav or atelectasis. There is no evidence for pulmonary edema. Cardiomediastinal silhouette is stable. IMPRESSION: No significant change in appearance of the chest. Small left pleural effusion with bibasi lar opacities suggestive of atelectasis. ACT 112: Negative or not required by law. Electronically signed by: Westley Levy M.D. 01/01/2025 3:19 PM
[2025-01-01] MEDS: ALBUT/IPRATROP 3MG/0.5MG NEB 3 ML VIAL NEB STA ×2 (16:05→17:53)
[2025-01-01] MEDS: FUROSEMIDE 40 MG/4 ML VIAL IV ONE (16:05)
--- NOTE | 2025-01-01 16:46 | Emergency Department Note ---
Impression & Plan Asthma exacerbation, Bilateral edema of lower extremity, Dyspnea, Elevated troponin, Elevated brain natriuretic peptide (BNP) level ED Provider Note ED Provider Note NAME: STEPHANIE DELGADO AGE:69 SEX: Female : 1955 ARRIVES VIA: Private vehicle INFORMANT: Patient ED PROVIDER(s): Cee Wood DO CHIEF COMPLAINT: Asthma exacerbation, worsening lower extremity edema HPI: This is a 69-year-old female who presents emergency room due to concern for persistent and worsening asthma and difficulty breathing as well as worsening lower extremity edema. Patient states she was seen and evaluated last week. She states she was discharged on steroids which she has been taking without any improvement. She also states she has been taking a daily diuretic however her lower extremity edema continues to worsen. She states she does have a history of kidney dysfunction, no history of heart problems although she has previously seen Dr. Manuel. She follows with Dr. Ohara of nephrology. She denies any recent fevers, chills, or illness. She denies any chest pain or palpitations. She does states she feels wheezy and has been using her MDIs and nebulizer treatments at home without any improvement. Patient is a former smoker. She does not use home oxygen. She denies any other change in medications other than the addition of the steroids. She did stop using amlodipine 2 weeks ago at the recommendation of Dr. Ohara who suggested that may be the cause of her lower extremity edema. PAST MEDICAL HISTORY:See Below PAST SURGICAL HISTORY:See Below FAMILY HISTORY:See Below SOCIAL HISTORY:See Below HOME MEDICATIONS:See Below ALLERGIES:See Below VITALS:See Below PHYSICAL EXAMINATION: GENERAL: alert, well appearing, well nourished, no distress, non-toxic EYE EXAM: normal conjunctiva, PERRL and EOM's grossly intact OROPHARYNX: no exudate, no erythema, lips, buccal mucosa, and tongue normal and mucous membranes are moist NECK: supple, no nuchal rigidity, no adenopathy, non-tender LUNGS: Decreased bilaterally to auscultation. Normal chest wall mechanics, no r/r, scattered expiratory wheeze HEART: no murmurs, S1 normal and S2 normal ABDOMEN: abdomen soft, non-tender, normo-active bowel sounds, no masses, no rebound or guarding. BACK: Back is symmetrical on inspection and there is no deformity, no midline tenderness SKIN: no rashes, petechiae, orbruising UPPER EXTREMITIES: upper extremities are grossly normal. FROM, nml pulses b/l. LOWER EXTREMITIES: No pitting edema. FROM, nml pulses b/l. NEURO EXAM: Normal sensorium, cranial nerves II-XII grossly intact, normal speech, no facial droop,nogross weakness of arms, no gross weakness of legs. Gross sensation intact. No ataxia. Vital Signs: reviewed and remarkable Differential Diagnosis: pneumonia, bronchitis, COPD/Asthma exacerbation, pneumothorax, pulmonary embolism, congestive heart failure, acute coronary syndrome, as well as others were considered MEDICAL DECISION MAKING: This is a 69-year-old female who presents emergency room due to concern for worsening shortness of breath and increased lower extremity edema. Patient seen and evaluated here recently with similar complaints and was discharged home. She has been taking steroids as previously prescribed and her usual medications which do include a daily diuretic. Patient does live at home alone and has began having difficulty performing her own ADLs due to her worsening symptoms. Labs drawn and sent, IV established, EKG and chest x-ray performed at bedside interpreted by me and patient monitored on telemetry. Patient was given a DuoNeb treatment due to accompanying expiratory wheeze and known history of asthma. Patient given a dose of IV Lasix as well for diuresis of the significant bilateral lower extremity edema she does have. Patient was noted to have an elevated troponin and BNP although no evidence of overt failure. She denied any chest pain and it seems as though her shortness of breath is more related to her asthma. Patient did have an echo when she was admitted last week which was reviewed and was reassuring. Patient was noted to have further T wave inversions on her EKG today compared to last week additionally. Repeat troponin was downtrending. Patient given a second DuoNeb treatment here. We discussed all results. Given failed outpatient management, concern for patient's safety as she lives alone and is having difficulty performing ADLs due to her symptoms, and other comorbid conditions likely contributing, case was discussed with the hospitalist team for additional inpatient management. Patient was not hypoxic while present in the emergency department and had no retractions or significant tachypnea despite complaints of shortness of breath and wheezing noted on exam. Consultation(s): 1813: Discussed with Dione Marroquin, [facility] resident, [facility] hospitalist team, for additional evaluation and management. ER Treatment Provided: See below Diagnostics Interpreted By Me: -ECG: Normal sinus at 89, normal axis, normal QRS, prolonged QTc, T wave inversions in V2, V5, V6; more T wave inversions compared to EKG from 12/26/2024 -Cardiac Monitoring: An order was placed for continuous cardiac monitoring. The monitor shows a rate of 80 with normal sinus rhythm. -Laboratory studies: As stated above and show below. -Imaging studies: X-ray Chest: A single view study of the chest was reviewed and was negative for cardiomegaly, focal infiltrate, effusion, pulmonary edema, or wide mediastinum. Triage Nursing Note Reviewed Prior/Outside Records Reviewed -reviewed discharge summary from December 26, 2024 Past Med/Surg History Problem List (Updated 01/02/25 @ 01:15 by Cee Wood DO) Elevated brain natriuretic peptide (BNP) level (Acute) Elevated troponin (Acute) Pleural effusion Elevated INR Thrombocytosis Bilateral edema of lower extremity (Acute) Asthma exacerbation (Acute) Elevated troponin (Acute) Chest pain (Acute) Dyspnea (Acute) Chest pain Acute diastolic CHF (congestive heart failure) Status post gastric bypass for obesity Hypothyroidism Allergic rhinitis due to dust mite (Chronic) Allergic rhinitis due to animal hair and dander (Chronic) Peripheral neuropathy Seasonal allergies Medical History (Updated 01/02/25 @ 01:15 by Cee Wood DO) COPD (chronic obstructive pulmonary disease) Mild tricuspid regurgitation Mild mitral regurgitation Severe persistent asthma Type 2 diabetes mellitus Anemia Dyslipidemia Hypertension Non-proliferative diabetic retinopathy Stage III chronic kidney disease Venous insufficiency Family History Mother Hypertension Diabetes Father Diabetes Denies family history of Kidney disease Social History Smoking Status: Former smoker Tobacco Type: Cigarettes Age Started Using Tobacco: 21; Age Quit Using Tobacco: 63; packs per day: 2; Do You Dip or Chew Tobacco: No; Hx Alcohol Use: No Hx Substance Use: No Preferred Language: Haitian Communication Ability: Effective Visual Impairment: No Limitations Hearing Ability: Normal Inspector Agricultural Commodities Required: No Beliefs That Will Affect Care: None marital status: Current Living Situation: Alone current occupational status: disabled How many Children do You have: 0 Feels Safe at Home: Yes Diet: regular caffeine: Yes (2 coffees daily) Dental Care, Regularly: No Physical Activity Frequency: Does not Exercise Seatbelt Use: always Sunscreen Use: No Do you think of yourself as: straight/heterosexual Gender Identity: Female Assistive Devices: None Allergies Allergies Allergy/AdvReac Type Severity Reaction Status Date / Time metformin Allergy Severe Verified 01/01/25 18:29 aspirin AdvReac Difficulty Verified 01/01/25 18:29 Breathing Home Meds Home Medications Medication Instructions Recorded Confirmed fenofibrate micronized 200 mg 200 mg PO DAILY 06/19/19 01/01/25 capsule multivitamin 1 tab PO DAILY 06/19/19 01/01/25 simvastatin 20 mg tablet 20 mg PO DAILY #90 tabs 07/10/20 01/01/25 levothyroxine 50 mcg tablet 50 mcg PO DAILY 12/05/24 01/01/25 furosemide 20 mg tablet 20 mg PO DAILY 12/20/24 01/01/25 clonazepam 0.5 mg tablet 0.5 mg PO BID PRN Anxiety 12/25/24 01/01/25 insulin glargine 100 unit/mL (3 20 unit subcut UD 12/25/24 01/01/25 mL) subcutaneous pen (Lantus Solostar U-100 Insulin) insulin lispro 100 unit/mL 8 unit subcut ACHS 12/25/24 01/01/25 subcutaneous pen (Humalog KwikPen (U-100) Insulin) ipratropium 20 mcg-albuterol 100 1 puff inhalation UD 12/25/24 01/01/25 mcg/actuation mist for inhalation (Combivent Respimat) tezepelumab-ekko 210 mg/1.91 mL 210 mg subcut UD 12/25/24 01/01/25 (110 mg/mL) subcutaneous pen injector (Tezspire) tiotropium bromide 18 mcg capsule 18 mcg inhalation UD 12/25/24 01/01/25 with inhalation device brexpiprazole 3 mg tablet (Rexulti) 3 mg PO DAILY 01/01/25 01/01/25 ergocalciferol (vitamin D2) 1,250 1,250 mcg PO 2XWK 01/01/25 01/01/25 mcg (50,000 unit) capsule fluoxetine 40 mg capsule 80 mg PO DAILY 01/01/25 01/01/25 ipratropium bromide 0.02 % 2.5 ml inhalation QID PRN 01/01/25 01/01/25 solution for inhalation SOB/Wheezing prednisone 10 mg tablet See Rx Instructions .Route .COMPLEX 01/01/25 01/01/25 Previous Rx's Medication Instructions Recorded montelukast 10 mg tablet 10 mg PO DAILY #30 tabs 08/13/20 (Singulair) albuterol sulfate 2.5 mg/3 mL 2.5 mg (3 mL) inhalation Q4H PRN 03/02/24 (0.083 %) solution for nebulization shortness of breath or wheezing #180 mL albuterol sulfate 0.63 mg/3 mL 0.63 mg (3 mL) continuous 12/05/24 solution for nebulization nebulization Q4H PRN shortness of breath or wheezing #90 mL benzonatate 100 mg capsule 100 mg PO TID PRN cough #30 caps 12/13/24 Results & Data (ED) Vital Signs Vital Signs - 24 hr 01/01/25 13:18 01/01/25 15:40 01/01/25 15:40 Temperature 36.8 C Temperature Source Temporal Artery Scan Pulse Rate 95 H Pulse Rate [Apical] 86 Respiratory Rate 18 14 Respiratory Effort / Characteristics Non-Labored Spontaneous Respiratory Depth Normal Blood Pressure 180/85 H Blood Pressure [Right Arm] 166/83 H Blood Pressure Mean 116 Blood Pressure Mean [Right Arm] 110 Blood Pressure Position [Right Arm] Semi-fowlers Pulse Oximetry 93 97 97 Oxygen Delivery Method Room Air Room Air Room Air Sepsis Recent Fever Within 48 Hours No Sepsis New/Unexplained Change in Mental Status No Sepsis Action Taken by Nursing No Action Required 01/01/25 15:40 01/01/25 16:19 01/01/25 16:43 Temperature Temperature Source Pulse Rate 90 86 Pulse Rate [Apical] 82 Respiratory Rate 22 18 Respiratory Effort / Characteristics Non-Labored Spontaneous Respiratory Depth Normal Blood Pressure Blood Pressure [Right Arm] 132/89 Blood Pressure Mean Blood Pressure Mean [Right Arm] 103 Blood Pressure Position [Right Arm] Semi-fowlers Pulse Oximetry 97 100 Oxygen Delivery Method Room Air Nebulizer Sepsis Recent Fever Within 48 Hours Sepsis New/Unexplained Change in Mental Status Sepsis Action Taken by Nursing 01/01/25 18:00 Temperature Temperature Source Pulse Rate Pulse Rate [Apical] 94 H Respiratory Rate 20 Respiratory Effort / Characteristics Non-Labored Spontaneous Respiratory Depth Normal Blood Pressure Blood Pressure [Right Arm] 154/80 H Blood Pressure Mean Blood Pressure Mean [Right Arm] 104 Blood Pressure Position [Right Arm] Pulse Oximetry 93 Oxygen Delivery Method Room Air Sepsis Recent Fever Within 48 Hours Sepsis New/Unexplained Change in Mental Status Sepsis Action Taken by Nursing Laboratory Data 01/01/25 14:19 01/01/25 14:19 Lab Results 01/01/25 01/01/25 Range/Units 14:19 16:27 WBC 9.03 (4.8-10.8) K/ul RBC 3.99 L (4.20-5.40) M/uL Hgb 11.1 L (12.0-16.0) g/dl Hct 33.9 L (37.0-47.0) % MCV 85.0 (80.0-100.0) fL MCH 27.8 (25.0-34.0) pg MCHC 32.7 (32.0-36.0) g/dL RDW Std Deviation 53.5 H (36.4-46.3) fL RDW Coeff of Sol 17.6 H (11.5-14.5) % Plt Count 707 H (130-400) K/uL MPV 9.3 L (9.4-12.4) fL Immature Gran % (Auto) 0.4 % Neut % (Auto) 94.6 % Lymph % (Auto) 2.5 % Coles % (Auto) 2.5 % Eos % (Auto) 0.0 % Baso % (Auto) 0.0 % Neut # (Auto) 8.53 H (1.40-6.50) K/uL Lymph # (Auto) 0.23 L (1.20-3.40) K/uL Coles # (Auto) 0.23 (0.11-0.59) K/uL Eos # (Auto) 0.00 (0.00-0.50) K/uL Baso # (Auto) 0.00 (0.00-0.20) K/uL Immature Gran # (Auto) 0.04 (0.01-0.20) K/uL Target Cells 1+ PT 24.0 H (9.0-12.0) Seconds INR 2.4 H (0.9-1.1) APTT 36 H (21-31) Seconds PTT Ratio 1.3 Sodium 137 (136-145) mmol/L Potassium 3.7 (3.5-5.1) mmol/L Chloride 99 (98-107) mmol/L Carbon Dioxide 28 (21-32) mmol/L Anion Gap 10 (3-11) BUN 76 H (6-23) mg/dl Creatinine 1.37 H (0.6-1.2) mg/dl Est Cr Clr Drug Dosing 37.6 ml/min eGFR 42.32 BUN/Creatinine Ratio 55.5 H (10-20) Glucose 242 H (70-99(Fasting)) mg/dl Calcium 8.9 (8.6-10.3) mg/dl Total Bilirubin 0.7 (0.2-1.0) mg/dl AST 54 H (13-39) U/L ALT 39 (7-52) U/L Alkaline Phosphatase 90 (34-104) U/L Troponin I High Sens 80.5 H* 77.2 H* (0-14) pg/ml B-Natriuretic Peptide 220 H (0-100) pg/ml Total Protein 6.4 (6.0-8.3) gm/dl Albumin 3.1 L (3.4-5.0) gm/dl Globulin 3.3 (2.5-4.0) gm/dl Albumin/Globulin Ratio 0.9 (0.9-2) Administered Medications Methylprednisolone 40 mg/ (Syringe) 0.64 mls @ 1.5 mls/min IV BID [facility] Stop: 01/31/25 20:59 Last Admin: 01/01/25 22:00 Dose: 1.5 mls/min Documented By: JIMMY Insulin Aspart (Insulin Aspart Per Unit Charge) 0 units SC ACHS BELEN Stop: 01/31/25 20:59 Last Admin: 01/01/25 22:20 Dose: 6 units Documented By: JIMMY Co-signed By: Discontinued Medications Albuterol (Albut/Ipratrop 3mg/0.5mg Neb 3 Ml Vial) 3 ml NEB NOW STA; Protocol Stop: 01/01/25 15:59 Last Admin: 01/01/25 16:05 Dose: 3 ml Documented By: MMF Albuterol (Albut/Ipratrop 3mg/0.5mg Neb 3 Ml Vial) 3 ml NEB NOW STA; Protocol Stop: 01/01/25 17:41 Last Admin: 01/01/25 17:53 Dose: 3 ml Documented By: MAKW Furosemide (Furosemide 40 Mg/4 Ml Vial) 40 mg IV ONE ONE Stop: 01/01/25 16:00 Last Admin: 01/01/25 16:05 Dose: 40 mg Documented By: SANYA Phytonadione 10 mg/ Dextrose 51 mls @ 102 mls/hr IV ONE ONE Stop: 01/01/25 21:14 Last Infusion: 01/01/25 22:35 Dose: Infused Documented By: Admin: 01/01/25 22:05 Dose: 102 mls/hr Documented By: JIMMY Imaging Data Radiologist's Impression: Chest X-Ray 01/01/25 13:21 XR chest 1V not portable CLINICAL HISTORY: Chest pain, nonspecific COMPARISON STUDY: Chest radiograph December 25, 2024. FINDINGS: There is no pneumothorax. Small left pleural effusion is unchanged. Bibasilar opacities favor atelectasis. There is no evidence for pulmonary edema. Cardiomediastinal silhouette is stable. IMPRESSION: No significant change in appearance of the chest. Small left pleural effusion with bibasilar opacities suggestive of atelectasis. ACT 112: Negative or not required by law. Electronically signed by: Westley Levy M.D. 01/01/2025 3:19 PM Discharge Plan Visit Data Chief Complaint: Swelling/Edema to Extremity Stated Complaint: FEET AND LEGS SWELLING, ASTHMA ALSO ED Provider: Cee Wood Discharge Problem: Asthma exacerbation, Bilateral edema of lower extremity, Dyspnea, Elevated troponin, Elevated brain natriuretic peptide (BNP) level Patient Disposition: Admitted As Inpatient Discharge Instructions Interventions: ED Discharge Assessment Last Done: 01/01/25 20:21
--- NOTE | 2025-01-01 18:23 | History & Physical Report ---
Date of Service January 01, 2025 Assessment & Plan (1) Asthma exacerbation: Plan: - has been on prednisone 40mg x 4 days with minimal improvement -> plan for methylprednisone 40mg IV BID - does note increased cough over the past 3 days, but with lack of leukocytosis, other URI symptoms and relatively unremarkable CXR do not feel this is infectious - Duonebs QID -> add Pulmicort/Perforomist BID - continue home inhalers - presently on room air (2) Bilateral edema of lower extremity: Plan: - TTE from 12/26 with EF= 65-70%, no regional wall motion abnormalities - Acute on chronic LE edema, has been on steroids which could be contributing, ?right heart strain in the setting of presently poorly controlled asthma - BNP= 220 - s/p 40mg IV lasix in ED-> plan to continue lasix 40mg daily - trend creatinine with lasix (3) Pleural effusion: Plan: - again demonstrated on CXR-> small left sided - etiology unclear -> ?possible right heart strain in the setting of poorly controlled asthma, does not appear to be infectious - first seen on CXR 12/05 - is scheduled for outpatient CT for further evaluation (4) Elevated troponin: Plan: - troponin 80.5-> 77.2 - denies chest pain, dyspnea-> just notes increased wheezing - EKG with Nonspecific ST changes- ?T wave inversions anterolateral leads - Likely demand ischemia in the setting of asthma exacerbation - Will monitor of tele (5) Thrombocytosis: Plan: - platelets up trending over the past month - etiology is unclear -> ?reactive in the setting of acute illness - peripheral smear is pending (6) Elevated INR: Plan: - INR= 2.4 - etilogy unclear - will give Vitamin K tonight and repeat qAM (7) Type 2 diabetes mellitus: Plan: - plan to continue home Lantus 10 units daily - SSI ACHS (8) Hypertension: Plan: -amlodipine was stopped as an outpatient in the setting of LE edema - blood pressure controlled at present (9) Stage III chronic kidney disease: Plan: - creatine at baseline, continue to trend (10) Hypothyroidism: Plan: - continue levothyroxine Plan Diet: DM2 Code: Full VTE Prophylaxis: SCD, hold chemical with INR Dispo: Med Tele History of Present Illness Primary Care Provider: Davy Lyons 69 year old female with a past medical history of HFpEF, DM2, HTN, HLD, asthma, hypothyroidism, depression/anxiety, CKD Stage III, history of tobacco use presenting with increased LE edema and wheezing. Was recently admitted for similar symptoms and d/c on 12/26. Follows with allergy/immunology for asthma and nephrology for CKD. Amlodipine was recently held thinking this could be contributing factor to LE edema. Lasix was increased from 20mg daily to 40mg. Over the past week has noticed increased LE edema and wheezing-> started on prednisone taper per community marketing manager and completed 40mg x 4 days with minimal improvement in symptoms. Notes cough x 3 days, but otherwise denies URI symptoms- fever/chills, congestion, sinus pressure. Denies dyspnea, chest pain, pleuritic pain. States that the increased edema is making it difficult to get around her house. ED Course Significant for: Hgb= 11.1, Platelets= 707, INR= 2.4, creatinine= 1.37, troponin 80.5-> 77.2. BNP= 220. EKG with nonspecific ST changes-> ?T wave inversions in anterolateral leads. CXR with small left pleural effusion. S/p Duoneb, 40mg IV lasix Allergies Allergy/AdvReac Type Severity Reaction Status Date / Time metformin Allergy Severe Verified 01/01/25 18:29 cashew nut Allergy Verified 01/04/25 12:54 hazelnut Allergy Verified 01/04/25 12:54 nut - unspecified Allergy Verified 01/04/25 12:54 peanut Allergy Verified 01/04/25 12:54 peanut oil Allergy Verified 01/04/25 12:54 pecan nut Allergy Verified 01/04/25 12:54 aspirin AdvReac Difficulty Verified 01/01/25 18:29 Breathing Home Medications Medication Instructions Recorded Confirmed Type fenofibrate micronized 200 mg 200 mg PO DAILY 06/19/19 01/01/25 History capsule multivitamin 1 tab PO DAILY 06/19/19 01/01/25 History simvastatin 20 mg tablet 20 mg PO DAILY #90 tabs 07/10/20 01/01/25 History montelukast 10 mg tablet 10 mg PO DAILY #30 tabs 08/13/20 01/01/25 Rx (Singulair) albuterol sulfate 2.5 mg/3 mL 2.5 mg (3 mL) inhalation Q4H PRN 03/02/24 01/01/25 Rx (0.083 %) solution for nebulization shortness of breath or wheezing #180 mL albuterol sulfate 0.63 mg/3 mL 0.63 mg (3 mL) continuous 12/05/24 01/01/25 Rx solution for nebulization nebulization Q4H PRN shortness of breath or wheezing #90 mL levothyroxine 50 mcg tablet 50 mcg PO DAILY 12/05/24 01/01/25 History benzonatate 100 mg capsule 100 mg PO TID PRN cough #30 caps 12/13/24 01/01/25 Rx furosemide 20 mg tablet 20 mg PO DAILY 12/20/24 01/01/25 History clonazepam 0.5 mg tablet 0.5 mg PO BID PRN Anxiety 12/25/24 01/01/25 History insulin glargine 100 unit/mL (3 20 unit subcut UD 12/25/24 01/01/25 History mL) subcutaneous pen (Lantus Solostar U-100 Insulin) insulin lispro 100 unit/mL 8 unit subcut ACHS 12/25/24 01/01/25 History subcutaneous pen (Humalog KwikPen (U-100) Insulin) ipratropium 20 mcg-albuterol 100 1 puff inhalation UD 12/25/24 01/01/25 History mcg/actuation mist for inhalation (Combivent Respimat) tezepelumab-ekko 210 mg/1.91 mL 210 mg subcut UD 12/25/24 01/01/25 History (110 mg/mL) subcutaneous pen injector (Tezspire) tiotropium bromide 18 mcg capsule 18 mcg inhalation UD 12/25/24 01/01/25 History with inhalation device brexpiprazole 3 mg tablet (Rexulti) 3 mg PO DAILY 01/01/25 01/01/25 History ergocalciferol (vitamin D2) 1,250 1,250 mcg PO 2XWK 01/01/25 01/01/25 History mcg (50,000 unit) capsule fluoxetine 40 mg capsule 80 mg PO DAILY 01/01/25 01/01/25 History ipratropium bromide 0.02 % 2.5 ml inhalation QID PRN 01/01/25 01/01/25 History solution for inhalation SOB/Wheezing prednisone 10 mg tablet See Rx Instructions .Route .COMPLEX 01/01/25 01/01/25 History Past Med/Surg History Problem List (Updated 01/13/25 @ 00:07 by Background Dayinon) Primary cancer of ovary with widespread metastatic disease Ascites Elevated troponin (Acute) Pleural effusion Thrombocytosis Bilateral edema of lower extremity (Acute) Asthma exacerbation (Acute) Elevated troponin (Acute) Chest pain (Acute) Dyspnea (Acute) Status post gastric bypass for obesity Allergic rhinitis due to dust mite (Chronic) Allergic rhinitis due to animal hair and dander (Chronic) Peripheral neuropathy Seasonal allergies Medical History (Updated 01/13/25 @ 00:07 by Background Daemon) Hypertension Hypothyroidism COPD (chronic obstructive pulmonary disease) Mild tricuspid regurgitation Mild mitral regurgitation Severe persistent asthma Type 2 diabetes mellitus Anemia Dyslipidemia Non-proliferative diabetic retinopathy Stage III chronic kidney disease Venous insufficiency Family History Mother Hypertension Diabetes Father Diabetes Denies family history of Kidney disease Social History Smoking Status: Former smoker Tobacco Type: Cigarettes Age Started Using Tobacco: 21; Age Quit Using Tobacco: 63; packs per day: 2; Do You Dip or Chew Tobacco: No; Hx Alcohol Use: No Hx Substance Use: No Preferred Language: Norwegian Communication Ability: Effective Visual Impairment: No Limitations Hearing Ability: Normal [employer] Required: Yes Beliefs That Will Affect Care: None marital status: Current Living Situation: Alone current occupational status: disabled How many Children do You have: 0 Feels Safe at Home: Yes Diet: regular caffeine: Yes (2 coffees daily) Dental Care, Regularly: No Physical Activity Frequency: Does not Exercise Seatbelt Use: always Sunscreen Use: No Do you think of yourself as: straight/heterosexual Gender Identity: Female Assistive Devices: Walker Review of Systems Review of Systems: As per above Physical Exam Physical Exam: Constitutional: well-appearing, no acute distress HEENT: NCAT, no conjunctival injection CV: regular rhythm, no murmur appreciated, extremities well-perfused, + LE edema in above knee Resp: CTABL, + diffuse wheezing in all lung wilson, no increased work of breathing GI: soft, nondistended, nontender MSK: no gross deformities appreciated Skin: warm, dry, no rash appreciated Neuro: alert, oriented, no focal neurologic deficit appreciated Results & Data Results & Data Vital Signs (Past 12 Hours) Vital Signs Temp Pulse Pulse Resp BP BP Pulse Ox 01/01/25 16:43 86 01/01/25 16:19 82 18 132/89 100 01/01/25 15:40 90 22 97 01/01/25 15:40 97 01/01/25 15:40 86 14 166/83 H 97 01/01/25 13:18 36.8 C 95 H 18 180/85 H 93 O2 Del Method 01/01/25 16:43 01/01/25 16:19 Nebulizer 01/01/25 15:40 Room Air 01/01/25 15:40 Room Air 01/01/25 15:40 Room Air 01/01/25 13:18 Room Air Supervising Physician Co-Signing Physician Notes I personally saw and examined the patient. I independently reviewed the labs, EKG, imaging, problem list, medication list, past medical history and family history. I verified all pizano points and agree with Dr Dione Marroquin DO with the following exceptions and/or additions: 69 year old female presents to the ER with shortness of breath, bilateral lower extremity edema O/E HS RRR, no murmurs, Chest bibasal reduced, minimal wheeze, Abdo distended, soft non tender A/P Asthma exacerbation - duonebs q4h, Solu-Medrol Bilateral lower extremity edema with pleural effusion - trial Lasix Elevated INR - Vitamin K 10mg, repeat level in AM, consider liver US Resident Activity Tracking Resident Involvement: Resident Care Provided Care Provided: Adult Hospital Medicine (8) Hypertension Hypertension type: primary hypertension Qualified Code(s): I10 - Essential (primary) hypertension
[2025-01-01] MEDS ORDERED: GLUCOSE 40% GEL 15 GM TUBE PO PRN (20:24)
[2025-01-01] MEDS ORDERED: CARBOHYDRATES FOR HYPOGLYCEMIA PO PRN (20:24)
[2025-01-01] MEDS ORDERED: DEXTROSE 50% 50 ML SYRINGE IV PRN (20:24)
[2025-01-01] MEDS ORDERED: IPRATROPIUM BROMIDE/ALBUTEROL respimat INH INH SCH (20:24)
[2025-01-01] MEDS ORDERED: GLUCOSE 10 TAB/TUBE PO PRN (20:24)
[2025-01-01] MEDS ORDERED: NON-FORMULARY MEDICATION (Insulin Glargine [Lantus Solostar U-100 Insulin] 100 unit/mL (3 SQ SCH (20:24)
[2025-01-01] MEDS ORDERED: methylPREDNISolone 125 MG/2 ML VIAL IV SCH (21:00)
--- NOTE | 2025-01-01 21:39 | Electrocardiogram Report ---
Test Reason : Blood Pressure : */* mmHG Vent. Rate : 89 BPM Atrial Rate : 89 BPM P-R Int : 166 ms QRS Dur : 106 ms QT Int : 406 ms P-R-T Axes : 61 29 195 degrees QTcB Int : 493 ms Poor data quality, interpretation may be adversely affected Normal sinus rhythm Incomplete left bundle block Left ventricular hypertrophy with repolarization abnormality ( [place] product ) Abnormal ECG When compared with ECG of 26-Dec-2024 10:23, T wave inversion now evident in Anterolateral leads Confirmed by Cam Campbell ([id number]) on 01/01/2025 9:39:31 PM Referred By: Confirmed By: Cam Campbell
[2025-01-01] MEDS: methylPREDNISolone 40 MG in SYRINGE 0 ML IV SCH (22:00)
[2025-01-01] MEDS: PHYTONADIONE 10 MG in DEXTROSE 5% 50 ML IV ONE (22:05)
[2025-01-01] MEDS: INSULIN ASPART PER UNIT CHARGE SC SCH (22:20)
[2025-01-02 00:06] LABS: Influenza A virus by PCR Negative (Neg); Influenza B virus by PCR Negative (Neg); RSV by PCR Negative (Neg); SARS CoV2 RNA(COVID-19) Ceph NEGATIVE (Negative)
[2025-01-02] MEDS: Albuterol HFA 8 GM Inhaler (Combivent Respimat P&T Subs) INH PRN (04:54)
[2025-01-02] MEDS: Ipratropium HFA Inhaler (Combivent Respimat P&T Subs) INH PRN (04:54)
[2025-01-02] MEDS: LEVOTHYROXINE SODIUM 50 MCG TABLET PO SCH (05:26)
[2025-01-02 06:36] LABS: Basophils # (auto) 0.01 K/uL (0.00-0.20); Basophils % (auto) 0.1 %; Hematocrit (blood only) 31.7 % (37.0-47.0); Hemoglobin 10.4 g/dl (12.0-16.0); Immature Granulocytes # (auto) 0.04 K/uL (0.01-0.20); Immature Granulocytes % (auto) 0.5 %; Lymphocytes # (auto) 0.35 K/uL (1.20-3.40); Lymphocytes % (auto) 4.6 %; Mean Corpuscular Hemoglobin 27.8 pg (25.0-34.0); Mean Corpuscular Hgb Conc 32.8 g/dL (32.0-36.0); Mean Corpuscular Volume 84.8 fL (80.0-100.0); Mean Platelet Volume 9.3 fL (9.4-12.4); Monocytes # (auto) 0.47 K/uL (0.11-0.59); Monocytes % (auto) 6.1 %; Neutrophils # (auto) 6.78 K/uL (1.40-6.50); Neutrophils % (auto) 88.7 %; Platelet Count 643 K/uL (130-400); RDW Coefficient of Variation 17.2 % (11.5-14.5); RDW Standard Deviation 53.2 fL (36.4-46.3); Red Blood Count 3.74 M/uL (4.20-5.40); White Blood Count 7.65 K/ul (4.8-10.8)
[2025-01-02 07:00] LABS: Albumin Globulin Ratio 0.9 (0.9-2); Albumin Level 2.9 gm/dl (3.4-5.0); BUN Creatinine Ratio 60.2 (10-20); Bilirubin,Total 0.7 mg/dl (0.2-1.0); Calcium 8.9 mg/dl (8.6-10.3); Creatinine Clr Calc Pharmacy 40.1 ml/min; Globulin 3.2 gm/dl (2.5-4.0); Potassium 3.4 mmol/L (3.5-5.1); Total Protein 6.1 gm/dl (6.0-8.3)
[2025-01-02 07:14] LABS: INR 1.3 (0.9-1.1)
[2025-01-02] MEDS: BUDESONIDE 0.5 MG/2 ML VIAL (PULMICORT) NEB SCH (07:21)
[2025-01-02] MEDS: FORMOTEROL 20 MCG/2 ML VIAL NEB SCH (07:21)
[2025-01-02] MEDS: FUROSEMIDE 40 MG/4 ML VIAL IV SCH (08:06)
[2025-01-02] MEDS: MULTIVITAMIN TAB PO SCH (08:06)
[2025-01-02] MEDS: UMECLIDINIUM BROMIDE 62.5MCG/BLISTER 7 PUFFS/INHALER INH SCH (08:06)
[2025-01-02] MEDS: SIMVASTATIN 20 MG TAB PO SCH (08:06)
[2025-01-02] MEDS: MONTELUKAST SODIUM 10 MG TABLET PO SCH (08:06)
[2025-01-02] MEDS: FLUoxetine HCL 20 MG CAP PO SCH (08:06)
[2025-01-02] MEDS: LANTUS PER UNIT CHARGE SQ SCH (09:07)
[2025-01-02] MEDS: POTASSIUM CHLORIDE CRTAB 20 MEQ TABCR PO STA (10:38)
[2025-01-02] MEDS: LANTUS PER UNIT CHARGE SQ ONE (10:39)
--- NOTE | 2025-01-02 10:40 | Oncology Consultation ---
Date of Consultation January 02, 2025 Assessment & Plan (1) Ovarian mass: (2) Ascites: (3) Pleural effusion: Plan 69-year-old female with anemia, thrombocytosis found to have ovarian mass with peritoneal carcinomatosis. -Based on imaging, appears to have ovarian cancer with malignant ascites as well as possible malignant pleural effusion.Agree with obtaining paracentesis/thoracentesis with cytology to confirm malignancy/primary. -Will obtain laboratory testing including CA125 and CEA -Anemia and thrombocytosis likely due to chronic disease/inflammation from underlying malignancy Thank you for this consult. Oncology will follow after cytology results are available to discuss treatment plan with patient. Please feel free to call if you have any other questions History of Present Illness Attending Physician: Candice Bañuelos MD History of Present Illness 83-year-old female with medical history significant for hypertension, type II DM, asthma, CKD stage III who presented to [facility] with bilateral lower extremities edema and wheezing. Labs obtained on admission revealed anemia with hemoglobin of 11.1 and thrombocytosis platelet count of 707,000. CTA chest revealed no evidence of PE, cardiomegaly with interstitial pulmonary edema, moderate right and moderate to large left pleural effusions with bibasilar consolidation favoring atelectasis, upper abdominal ascites with omental/peritoneal implants/carcinomatosis, nonspecific mid to distal esophageal wall thickening. CT abdomen and pelvis revealed large cystic and solid pelvic mass/masses suggestive of primary ovarian carcinoma, extensive omental/peritoneal carcinomatosis, large bowel serosal implants with malignant ascites, nonspecific wall thickening of the anorectal junction and indeterminate sclerotic focus of the posterior right iliac bone. Allergies Allergy/AdvReac Type Severity Reaction Status Date / Time metformin Allergy Severe Verified 01/01/25 18:29 aspirin AdvReac Difficulty Verified 01/01/25 18:29 Breathing Home Medications Medication Instructions Recorded Confirmed Type fenofibrate micronized 200 mg 200 mg PO DAILY 06/19/19 01/01/25 History capsule multivitamin 1 tab PO DAILY 06/19/19 01/01/25 History simvastatin 20 mg tablet 20 mg PO DAILY #90 tabs 07/10/20 01/01/25 History montelukast 10 mg tablet 10 mg PO DAILY #30 tabs 08/13/20 01/01/25 Rx (Singulair) albuterol sulfate 2.5 mg/3 mL 2.5 mg (3 mL) inhalation Q4H PRN 03/02/24 01/01/25 Rx (0.083 %) solution for nebulization shortness of breath or wheezing #180 mL albuterol sulfate 0.63 mg/3 mL 0.63 mg (3 mL) continuous 12/05/24 01/01/25 Rx solution for nebulization nebulization Q4H PRN shortness of breath or wheezing #90 mL levothyroxine 50 mcg tablet 50 mcg PO DAILY 12/05/24 01/01/25 History benzonatate 100 mg capsule 100 mg PO TID PRN cough #30 caps 12/13/24 01/01/25 Rx furosemide 20 mg tablet 20 mg PO DAILY 12/20/24 01/01/25 History clonazepam 0.5 mg tablet 0.5 mg PO BID PRN Anxiety 12/25/24 01/01/25 History insulin glargine 100 unit/mL (3 20 unit subcut UD 12/25/24 01/01/25 History mL) subcutaneous pen (Lantus Solostar U-100 Insulin) insulin lispro 100 unit/mL 8 unit subcut ACHS 12/25/24 01/01/25 History subcutaneous pen (Humalog KwikPen (U-100) Insulin) ipratropium 20 mcg-albuterol 100 1 puff inhalation UD 12/25/24 01/01/25 History mcg/actuation mist for inhalation (Combivent Respimat) tezepelumab-ekko 210 mg/1.91 mL 210 mg subcut UD 12/25/24 01/01/25 History (110 mg/mL) subcutaneous pen injector (Tezspire) tiotropium bromide 18 mcg capsule 18 mcg inhalation UD 12/25/24 01/01/25 History with inhalation device brexpiprazole 3 mg tablet (Rexulti) 3 mg PO DAILY 01/01/25 01/01/25 History ergocalciferol (vitamin D2) 1,250 1,250 mcg PO 2XWK 01/01/25 01/01/25 History mcg (50,000 unit) capsule fluoxetine 40 mg capsule 80 mg PO DAILY 01/01/25 01/01/25 History ipratropium bromide 0.02 % 2.5 ml inhalation QID PRN 01/01/25 01/01/25 History solution for inhalation SOB/Wheezing prednisone 10 mg tablet See Rx Instructions .Route .COMPLEX 01/01/25 01/01/25 History Patient History Medical History (Updated 01/02/25 @ 16:30 by Aruna Askew MD) COPD (chronic obstructive pulmonary disease) Mild tricuspid regurgitation Mild mitral regurgitation Severe persistent asthma Type 2 diabetes mellitus Anemia Dyslipidemia Non-proliferative diabetic retinopathy Stage III chronic kidney disease Venous insufficiency Family History Mother Hypertension Diabetes Father Diabetes Denies family history of Kidney disease Social History Smoking Status: Former smoker Tobacco Type: Cigarettes Age Started Using Tobacco: 21; Age Quit Using Tobacco: 63; packs per day: 2; Do You Dip or Chew Tobacco: No; Hx Alcohol Use: No Hx Substance Use: No Preferred Language: Polish Communication Ability: Effective Visual Impairment: No Limitations Hearing Ability: Normal Insurance Loss Control Surveyor Required: Yes Beliefs That Will Affect Care: None marital status: Current Living Situation: Alone current occupational status: disabled How many Children do You have: 0 Feels Safe at Home: Yes Safety Concerns: Feels Safe At This Time Diet: regular caffeine: Yes (2 coffees daily) Dental Care, Regularly: No Physical Activity Frequency: Does not Exercise Seatbelt Use: always Sunscreen Use: No Do you think of yourself as: straight/heterosexual Gender Identity: Female Assistive Devices: Walker Results & Data Vital Signs (Past 12 Hours) Vital Signs Temp Pulse Pulse Resp BP BP Pulse Ox 01/02/25 08:24 82 01/02/25 07:33 36.6 C 77 18 149/77 H 94 01/02/25 07:25 01/02/25 07:21 79 16 94 01/02/25 04:54 81 16 95 01/02/25 04:40 79 01/02/25 04:40 01/02/25 04:40 36.6 C 84 18 152/84 H 95 01/02/25 01:25 01/02/25 01:25 85 19 155/88 H 92 01/02/25 00:09 81 23 95 01/01/25 23:00 88 20 146/87 H 93 O2 Del Method 01/02/25 08:24 01/02/25 07:33 Room Air 01/02/25 07:25 Room Air 01/02/25 07:21 Room Air 01/02/25 04:54 Room Air 01/02/25 04:40 01/02/25 04:40 Room Air 01/02/25 04:40 Room Air 01/02/25 01:25 Room Air 01/02/25 01:25 Room Air 01/02/25 00:09 Room Air 01/01/25 23:00 Room Air
[2025-01-02] MEDS: OPTIRAY 320 125ml IV ONE (11:47)
--- NOTE | 2025-01-02 12:11 | Ultrasound Report ---
BILATERAL LOWER EXTREMITY VENOUS DOPPLER HISTORY: Acute pain and swelling of the lower legs leg swelling,r/o DVT COMPARISON STUDY: None. FINDINGS: Subcutaneous edema is noted. Left-sided Sheikh's cyst measures approximately 4 cm. There is normal compressibility, flow, and augmentation within the bilateral lower extremity deep venous syste ms. IMPRESSION: No DVT within the right or left lower extremity. ACT 112: Negative or not required by law. Electronically signed by: Jean Carlos Valenzuela M.D. 01/02/2025 12:10 PM
[2025-01-02 12:23] LABS: Folate (Folic Acid),Ser orPlas 10.75 ng/ml (>5.38)
--- NOTE | 2025-01-02 12:47 | CT Scan Report ---
CT angio chest PE protocol CT DOSE: 745.16 mGy.cm HISTORY: 69 years-old Female with PE. Acute shortness of breath with lower remedy edema. History of asthma. TECHNIQUE: Multiple CTA images of the chest were obtained after the intravenous administration of 112 ml Optiray. Coronal and sagittal MIPS were obtained from the axial data set and were submitted for review. All measurements were obtained according to NASCET criteria. A dose lowering technique was u tilized adhering to the principles of ALARA. COMPARISON: Duplex venous Doppler study of same day FINDINGS: CTA: Moderate cardiomegaly. Mild coronary artery calcifications. Aberrant right subclavian artery. No pulm onary emboli identified. CT CHEST: Unremarkable thyroid. No lymphadenopathy. Moderate right with moderate to large left pleural effusion s. No pneumothorax. Interstitial pulmonary edema with [id number] dependent bibasilar consolidation . No suspicious pulmonary nodules. Mild bibasilar mucous plugging. Possible mild tricompartment chond romalacia. Nonspecific diffuse esophageal wall thickening.-Bypass. Moderate upper abdominal ascites. Mesenteric nodular foci within the upper abdomen measure up to approximately 1.3 cm on image 6 series 2 with a l arger lesion noted on image 16 series 2 measuring 6.7 cm. Unremarkable soft tissues. No acute fractur e or destructive bone lesion. IMPRESSION: 1. No pulmonary emboli identified. 2. Cardiomegaly with interstitial pulmonary edema, moderate right and moderate to large left pleural effusions with bibasilar consolidation favoring atelectasis. 3. Upper abdominal ascites with omental/peritoneal implants/carcinomatosis. Correlation with follow-u p paracentesis recommended. 4. Nonspecific mid to distal esophageal wall thickening. ACT 112: Positive. There are findings on this exam that require communication between the performing entity and the patient following Patient Test Result Information Act ([place] Act 112) guidelines. The above report was generated using voice recognition software. It may contain grammatical, syntax o r spelling errors. Electronically signed by: Jean Carlos Valenzuela M.D. 01/02/2025 12:45 PM
--- NOTE | 2025-01-02 13:40 | Hospitalist Progress Note ---
Date of Service January 02, 2025 Assessment & Plan (1) Bilateral edema of lower extremity: (2) Ascites: (3) Pleural effusion: (4) Thrombocytosis: (5) Elevated troponin: Plan This pt is a 69 yo female with a h/o COPD/asthma, former smoker, obesity and gastric bypass surgery, CKD stage III, HTN, HLD,hypothyroidism, Anxiety/depression, and DMII who presents for the second time in 2 weeks to the hospital for leg swelling and shortness of breath. She was diuresed last admission with no improvement and then treated as an outpt with prednisone with no improvement. Also has more cent c/o abdominal distension. With mild anemia and worsening thrombocytosis. On admission was found ot have a left pleural effusion on CXR and was treated with IV steroids. SHe also had an elevated troponin and BNP, with recent ECHO with preserved EF. Further workup after admission revealed mod-large left> right pleural effusions, ascites, and multiple pelvis and abdominal wall tumors.CTA CHest neg for PE and Dopplers BLE neg for DVT #Bilateral edema of lower extremity/Ascites/Pleural effusion - ECHO 12/26 with preserved EF. BNP mildly elevated here but her LE edema and ascites, pleural effusions are all likely related to newly diagnosed malignancy in the pelvis and abdomen seen on CT Chest/Abd/Pel. Dopplers ordered and neg for DVT. Discussed all results with pt and may have ovarian primary CA with mets. -consulted Oncology, check CEA, CA-125 -plan for paracentesis and thoracentesis simultaneously on 01/03-check routine fluid studies as well as cytology to confirm malignancy -continue IV lasix once daily for now as this may help somewhat to keep fluid off -high risk for VTE_start DVT prophylaxis as soon as possible after procedures on 01/03 -await cytology results and tumor markers before pursuing further eval/treatment with Oncology or possibly with HYDROTEL OPERATOR-Onc #Elevated troponin: - troponin 80.5-> 77.2, no chest pain- EKG with Nonspecific ST changes- ?T wave inversions anterolateral leads changed from previous - Likely demand ischemia in the setting of pleural effusions and mod LVH -Appreciate Cardio consult-control BP-add on ARB or ACEi if BPs remain elevated off amlodipine #Thrombocytosis/Fe deficiency anemia- platelets up trending over the past month now in 700s. Has a h/o gastric bypass and is mildly anemia, MCV has gone down over last month -checked Fe studies-mixed Fe def plus chronic disease-give IV Venofer 200mg x 1 -checked B12, folate-normal; recent TSH 5.1 in 10/2024 -elevated platelets likely from reactive to presumed malignancy or reactive to Fe deficiency -follow CBC #Elevated INR: - INR= 2.4 on admission and now almost normal at 1.3 after receiving vitamin K-likely nutritional deficiency -discussed with Heme #Type 2 diabetes mellitus: -HgbA1C 7.5% in 10/2024 -continue basal and bolus insulin and adjust as needed #Hypertension:-amlodipine was stopped as an outpatient in the setting of LE edema. BPs somewhat elevated here - consider adding on ARB or ACEi if needed #Stage III chronic kidney disease: - creatine at baseline - continue to trend BMP # Hypothyroidism: TSH 5.1 in 10/2024 - continue levothyroxine home dose and follow as outpt #Status post gastric bypass for obesity: -noted, places her at risk for nutritional deficiencies #COPD-no acute issues-dc steroids as this is not from asthma or COPD DVT proph-add Lovenox after procedures on 01/03, high risk for DVT Dispo-continued stay med tele Admission and Anticipated Discharge Date Admission Date: January 01, 2025 Subjective Pt reports ongoing SOB even at rest. Reports her abdomen and legs really started swelling up over the last few days to weeks. No hematemesis or melena or hematochezia. No heartburn. DOes have a h/o gastric bypass surgery from 24 years ago. Had colonoscopy in last 10 years. No abd pain. I spent 60 min with her today on multiple occasions and also spent time with various specialists discussing her care to include PULM, Interventional Radiology, Cardiology, and Oncology. Discussed her results of CT scans. I also discussed her care on the phone with her sister. Tele with NSR rates 70-80s Physical Exam Constitutional: WD/WN, vitals as above + obese Respiratory: + tachypneic (at rest) Auscultation: + diminished lung sounds (at bases bilat); no crackles, no rhonchi and no wheezes Cardiovascular: Rate/Rhythm: regular rate and regular rhythm Heart Sounds: no murmur Extremities: + edema (2+ pitting edema of BLEs to her thighs bilat) Gastrointestinal (Abdomen): Inspection/Auscultation: + abdomen distended and normal bowel sounds Percussion/Palpation: + abdomen tender (mild and diffuse), abdomen soft and + abdominal mass (palpable masses abd wall right side and left) Psychiatric: Orientation: alert and oriented x 3 Mood: + anxious mood Results & Data Results & Data Vital Signs (Past 12 Hours) Vital Signs Temp Pulse Pulse Resp BP Pulse Ox O2 Del Method 01/02/25 11:17 36.5 C 79 18 151/82 H 97 Room Air 01/02/25 08:24 82 01/02/25 07:33 36.6 C 77 18 149/77 H 94 Room Air 01/02/25 07:25 Room Air 01/02/25 07:21 79 16 94 Room Air 01/02/25 04:54 81 16 95 Room Air 01/02/25 04:40 79 01/02/25 04:40 Room Air 01/02/25 04:40 36.6 C 84 18 152/84 H 95 Room Air Laboratory Results CBC, CMP, iron studies, B12, folate, troponin reviewed Diagnostic Findings CT abd/pel and CTA CHest, Venous Dopplers bilat LEs all reviewed PG Care Time/CCT Total # of Minutes Spent Total Time Spent with Patient: Total time spent is greater than 50% in coordination of care (as documented) at patient's floor/unit and/or counseling patient: Coding Level of Care Code 66769 SUB INP/OBS CARE 3/50MIN Diagnoses Bilateral edema of lower extremity R60.0 Ascites R18.8 Pleural effusion J90 Thrombocytosis D75.839 Elevated troponin R79.89
--- NOTE | 2025-01-02 14:01 | Cardiology Consultation ---
Date of Consultation January 02, 2025 Assessment & Plan (1) Acute on chronic diastolic CHF (congestive heart failure): -Mainly right-sided CHF. -BNP is mildly elevated. -Agree with intravenous diuretics. (2) Elevated troponin: -Likely secondary to demand ischemia. -Moderate LVH detected on previous echocardiogram. (3) Hypertension: -Borderline control since amlodipine discontinued. -Consider starting low-dose losartan or lisinopril. History of Present Illness Attending Physician: Candice Bañuelos MD History of Present Illness Mrs. Hannah is a 69-year-old female admitted yesterday with a presumed COPD exacerbation and progressive lower extremity edema. Her high-sensitivity troponin and BNP are both mildly elevated, therefore, this consultation was ordered. Of note, the patient is well-known to me from the outpatient setting. The patient's recent history began on December 25 when she was admitted with shortness of breath, pulmonary edema, and progressive lower extremity edema all felt secondary to acute diastolic congestive failure. She responded to diuresis and her amlodipine was discontinued. On December 28, the patient called into Dr. Meza's office complaining of shortness of breath and "wheezing." She was started on a prednisone taper at that time. She presented to the emergency room on the day of admission because of progressive lower extremity edema and "wheezing." The patient has a longstanding history of hypertension. An echocardiogram per formed on December 26 noted normal left ventricular systolic function with ejection fraction of 65 to 70%. There was moderate left ventricular hypertrophy. The patient has been careful to follow a salt restricted diet. She has not experienced any recent chest discomfort. Her medications were reviewed in detail. Past medical and surgical history 1. Hypertension 2. Moderate LVH 3. Hypercholesterolemia 4. Mild mitral crustacean 5. Mild tricuspid regurgitation 6. Diabetes mellitus 7. COPD 8. Chronic renal failure 9. Iron deficiency anemia 10. Hypothyroidism 11. Venous insufficiency 12. Allergic rhinitis 13. Anxiety/depression 14. Gastric bypass surgerySeptember 2001 15. Panniculectomy Social history Single, lives alone Quit tobacco use in August 2019 No alcohol Family history No early coronary artery disease Allergies Allergy/AdvReac Type Severity Reaction Status Date / Time metformin Allergy Severe Verified 01/01/25 18:29 aspirin AdvReac Difficulty Verified 01/01/25 18:29 Breathing Home Medications Medication Instructions Recorded Confirmed Type fenofibrate micronized 200 mg 200 mg PO DAILY 06/19/19 01/01/25 History capsule multivitamin 1 tab PO DAILY 06/19/19 01/01/25 History simvastatin 20 mg tablet 20 mg PO DAILY #90 tabs 07/10/20 01/01/25 History montelukast 10 mg tablet 10 mg PO DAILY #30 tabs 08/13/20 01/01/25 Rx (Singulair) albuterol sulfate 2.5 mg/3 mL 2.5 mg (3 mL) inhalation Q4H PRN 03/02/24 01/01/25 Rx (0.083 %) solution for nebulization shortness of breath or wheezing #180 mL albuterol sulfate 0.63 mg/3 mL 0.63 mg (3 mL) continuous 12/05/24 01/01/25 Rx solution for nebulization nebulization Q4H PRN shortness of breath or wheezing #90 mL levothyroxine 50 mcg tablet 50 mcg PO DAILY 12/05/24 01/01/25 History benzonatate 100 mg capsule 100 mg PO TID PRN cough #30 caps 12/13/24 01/01/25 Rx furosemide 20 mg tablet 20 mg PO DAILY 12/20/24 01/01/25 History clonazepam 0.5 mg tablet 0.5 mg PO BID PRN Anxiety 12/25/24 01/01/25 History insulin glargine 100 unit/mL (3 20 unit subcut UD 12/25/24 01/01/25 History mL) subcutaneous pen (Lantus Solostar U-100 Insulin) insulin lispro 100 unit/mL 8 unit subcut ACHS 12/25/24 01/01/25 History subcutaneous pen (Humalog KwikPen (U-100) Insulin) ipratropium 20 mcg-albuterol 100 1 puff inhalation UD 12/25/24 01/01/25 History mcg/actuation mist for inhalation (Combivent Respimat) tezepelumab-ekko 210 mg/1.91 mL 210 mg subcut UD 12/25/24 01/01/25 History (110 mg/mL) subcutaneous pen injector (Tezspire) tiotropium bromide 18 mcg capsule 18 mcg inhalation UD 12/25/24 01/01/25 History with inhalation device brexpiprazole 3 mg tablet (Rexulti) 3 mg PO DAILY 01/01/25 01/01/25 History ergocalciferol (vitamin D2) 1,250 1,250 mcg PO 2XWK 01/01/25 01/01/25 History mcg (50,000 unit) capsule fluoxetine 40 mg capsule 80 mg PO DAILY 01/01/25 01/01/25 History ipratropium bromide 0.02 % 2.5 ml inhalation QID PRN 01/01/25 01/01/25 History solution for inhalation SOB/Wheezing prednisone 10 mg tablet See Rx Instructions .Route .COMPLEX 01/01/25 01/01/25 History Patient History Medical History (Updated 01/02/25 @ 14:20 by Kendell Manuel MD) COPD (chronic obstructive pulmonary disease) Mild tricuspid regurgitation Mild mitral regurgitation Severe persistent asthma Type 2 diabetes mellitus Anemia Dyslipidemia Non-proliferative diabetic retinopathy Stage III chronic kidney disease Venous insufficiency Family History Mother Hypertension Diabetes Father Diabetes Denies family history of Kidney disease Social History Smoking Status: Former smoker Tobacco Type: Cigarettes Age Started Using Tobacco: 21; Age Quit Using Tobacco: 63; packs per day: 2; Do You Dip or Chew Tobacco: No; Hx Alcohol Use: No Hx Substance Use: No Preferred Language: Japanese Communication Ability: Effective Visual Impairment: No Limitations Hearing Ability: Normal Composite Laminator Required: Yes Beliefs That Will Affect Care: None marital status: Current Living Situation: Alone current occupational status: disabled How many Children do You have: 0 Feels Safe at Home: Yes Safety Concerns: Feels Safe At This Time Diet: regular caffeine: Yes (2 coffees daily) Dental Care, Regularly: No Physical Activity Frequency: Does not Exercise Seatbelt Use: always Sunscreen Use: No Do you think of yourself as: straight/heterosexual Gender Identity: Female Assistive Devices: Walker Physical Exam Physical Exam: In general this is an obese white female in no acute distress. HEENT exam is negative. Neck is supple with full carotid upstrokes. There are no carotid bruits. No JVD. There is no thyromegaly. Cardiovascular exam reveals a regular rhythm with distant heart sounds. No obvious murmurs. Lungs noted decreased breath sounds at the bases, but no rales, rhonchi, or wheezes. Abdomen is distended with normal bowel sounds. Extremities reveal intact radial artery pulses bilaterally. There is 2-3+ lower extremity edema. Results & Data Vital Signs (Past 12 Hours) Vital Signs Temp Pulse Pulse Resp BP Pulse Ox O2 Del Method 01/02/25 11:17 36.5 C 79 18 151/82 H 97 Room Air 01/02/25 08:24 82 01/02/25 07:33 36.6 C 77 18 149/77 H 94 Room Air 01/02/25 07:25 Room Air 01/02/25 07:21 79 16 94 Room Air 01/02/25 04:54 81 16 95 Room Air 01/02/25 04:40 79 01/02/25 04:40 Room Air 01/02/25 04:40 36.6 C 84 18 152/84 H 95 Room Air Laboratory Results CBC notes hemoglobin of 10.4, hematocrit 31.7, white count 7.6, and a platelet count of 643,000. Electrolytes noted sodium 137, potassium 3.4, chloride 100, bicarb 20, BUN 77, creatinine 1.2, and a glucose of 235. High-sensitivity troponin on presentation was 80.5 with a follow-up value of 77.2. BNP is mildly elevated 220. Diagnostic Findings EKG notes sinus rhythm with an incomplete left bundle branch block and left trickle hypertrophy with repolarization changes. Chest x-ray notes cardiomegaly with a left-sided pleural effusion, but no evidence of interstitial edema PG Care Time/CCT Total # of Minutes Spent Total Time Spent with Patient: Total time spent is greater than 50% in coordination of care (as documented) at patient's floor/unit and/or counseling patient: Coding Level of Care Code 71205 INT INP/OBS CARE 3/75MIN Diagnoses Acute on chronic diastolic CHF (congestive heart failure) I50.33 Elevated troponin R79.89 Primary hypertension I10 Hypertension type: primary hypertension (3) Hypertension Hypertension type: primary hypertension Qualified Code(s): I10 - Essential (primary) hypertension
[2025-01-02] MEDS: OPTIRAY 320 100ml IV ONE (14:14)
--- NOTE | 2025-01-02 14:52 | CT Scan Report ---
ABDOMEN AND PELVIS CT WITH IV CONTRAST CT DOSE: 1315.99 mGy.cm HISTORY: Acute short of breath with abdominal and chest pain abdominal mass,ascites,bilateral LE vicente ma TECHNIQUE: Multiaxial CT images of the abdomen and pelvis were performed following the IV administrat ion of 90 cc of Optiray, A dose lowering technique was utilized adhering to the principles of ALARA. COMPARISON STUDY: CT chest of same day FINDINGS: CT chest dictated separately. Layering pleural effusions with bibasilar consolidation. Mike nary artery calcifications. No pneumatosis or pneumoperitoneum. Unremarkable spleen, moderately atrop hic pancreas and adrenal glands. Cholecystectomy. Unremarkable liver. Patency of the hepatic and port al veins. Unremarkable kidneys without hydronephrosis. The urinary bladder is within normal limits. Pelvic floo r relaxation. Mixed cystic and solid masses within the pelvis measure up to approximately 13 cm. Athe rosclerosis of the aorta without aneurysm. Numerous omental/peritoneal masses include the previously mentioned 6.7 cm mass in the abdominal upper quadrant. Moderate to large abdominal pelvic ascites. There is nonspecific wall thickening of the anal rectal junction. Serosal implants noted involving se veral loops of large bowel. Moderate colonic fecal retention. No obstruction. The visualized appendix appears noninflamed. Tiny fat filled umbilical hernia. Gastric bypass. Borderline enlarged inguinal chain lymph nodes. Anasarca. 11 mm ill-defined sclerotic focus involves the posterior aspect of the r ight iliac bone on image 213. A few additional ill-defined tiny sclerotic foci noted within the verte bral bodies. No acute pathologic fracture. Mild lumbar levoscoliosis. IMPRESSION: 1. 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 2. Extensive omental/peritoneal carcinomatosis, large bowel serosal implants with malignant ascites. 3. Layering pleural effusions with bibasilar consolidation. 4. No bowel obstruction or pneumoperitoneum. 5. Nonspecific wall thickening of the ano-rectal junction. Correlation with colonoscopy recommended. 6. Indeterminate sclerotic focus of the posterior right iliac bone. 7. Additional findings as above. ACT 112: Negative or not required by law. The above report was generated using voice recognition software. It may contain grammatical, syntax o r spelling errors. Electronically signed by: Jean Carlos Valenzuela M.D. 01/02/2025 2:51 PM
--- NOTE | 2025-01-02 15:12 | XRay Report ---
XR chest 1V portable HISTORY: 69 years-old Female S/P Thoracentesis COMPARISON: CTA chest of same day TECHNIQUE: AP view the chest FINDINGS: Cardiac silhouette is enlarged. Pulmonary vascular congestion with interstitial coarsening. Layering pleural effusions with bibasilar consolidation again noted. No postprocedural pneumothorax. The bones appear grossly intact. IMPRESSION: 1. Cardiomegaly with interstitial pulmonary edema, layering pleural effusions with bibasilar consolid ation redemonstrated. 2. No pneumothorax. ACT 112: Negative or not required by law. The above report was generated using voice recognition software. It may contain grammatical, syntax o r spelling errors. Electronically signed by: Jean Carlos Valenzuela M.D. 01/02/2025 3:11 PM
[2025-01-02] MEDS: clonazePAM 0.5 MG TAB PO PRN (15:15)
[2025-01-02] MEDS: IRON SUCROSE 200 MG in SODIUM CHLORIDE 0.9% 100 ML IV ONE (19:42)
[2025-01-03] MEDS ORDERED: LANTUS PER UNIT CHARGE SQ SCH (09:00)
[2025-01-03 09:06] LABS: Basophils # (auto) 0.01 K/uL (0.00-0.20); Basophils % (auto) 0.1 %; Hematocrit (blood only) 36.4 % (37.0-47.0); Hemoglobin 11.9 g/dl (12.0-16.0); Immature Granulocytes # (auto) 0.06 K/uL (0.01-0.20); Immature Granulocytes % (auto) 0.6 %; Lymphocytes # (auto) 1.24 K/uL (1.20-3.40); Lymphocytes % (auto) 12.6 %; Mean Corpuscular Hgb Conc 32.7 g/dL (32.0-36.0); Mean Corpuscular Volume 85.6 fL (80.0-100.0); Mean Platelet Volume 9.2 fL (9.4-12.4); Monocytes # (auto) 1.18 K/uL (0.11-0.59); Neutrophils # (auto) 7.32 K/uL (1.40-6.50); Neutrophils % (auto) 74.7 %; Platelet Count 696 K/uL (130-400); RDW Coefficient of Variation 17.9 % (11.5-14.5); RDW Standard Deviation 55.5 fL (36.4-46.3); Red Blood Count 4.25 M/uL (4.20-5.40); White Blood Count 9.81 K/ul (4.8-10.8)
[2025-01-03] MEDS: LANTUS PER UNIT CHARGE SQ SCH (09:15)
[2025-01-03 09:22] LABS: Albumin Level 2.9 gm/dl (3.4-5.0); BUN Creatinine Ratio 53.3 (10-20); Bilirubin Direct 0.2 mg/dl (0-0.2); Bilirubin,Total 0.7 mg/dl (0.2-1.0); Calcium 9.1 mg/dl (8.6-10.3); Creatinine Clr Calc Pharmacy 37.7 ml/min; Potassium 3.7 mmol/L (3.5-5.1); Total Protein 6.1 gm/dl (6.0-8.3)
--- NOTE | 2025-01-03 15:34 | Ultrasound Report ---
ULTRASOUND-GUIDED PARACENTESIS CLINICAL HISTORY: Ascites PROCEDURE: Procedure and risks were explained. Informed consent was obtained. A final timeout was com pleted. The abdomen was prepped and draped in sterile fashion. 1% lidocaine was utilized for skin ane sthesia. Utilizing ultrasound guidance, a 5 Hungarian safety centesis catheter was advanced into the right lower quadrant pocket of ascites. Ultrasound images were obtained. A total of 5 L of serosanguineous ascite s fluid was removed with 1 L sent to the lab. The catheter was removed and Band-Aid applied. The javier ent tolerated the procedure well. Vital signs will be monitored postprocedure. IMPRESSION: Ultrasound-guided paracentesis as above. Performed, dictated, and signed by Pato Red PA-C; to be co-signed by Dr. Jean Carlos Valenzuela. Electronically signed by: Jean Carlos Valenzuela M.D. 01/03/2025 3:59 PM
--- NOTE | 2025-01-03 15:35 | Ultrasound Report ---
ULTRASOUND-GUIDED LEFT THORACENTESIS CLINICAL HISTORY: Left pleural effusion PROCEDURE: Procedure and risks were explained. Informed consent was obtained. A final timeout was com pleted. The left posterior thorax was prepped and draped in sterile fashion. 1% lidocaine was utilize d for skin anesthesia. Utilizing ultrasound guidance, a 5 Maltese safety centesis catheter was advanced into the left pleural effusion. Ultrasound images were obtained. A total of 550 mL of serosanguineous pleural fluid was re moved and sent to the lab. The catheter was removed and Band-Aid applied. The patient tolerated the p rocedure well. A chest x-ray will be obtained post procedure. Vital signs will be monitored on the fl oor. IMPRESSION: Ultrasound-guided left thoracentesis as above. Performed, dictated, and signed by Pato Red PA-C; to be co-signed by Dr. Jean Carlos Valenzuela. Electronically signed by: Jean Carlos Valenzuela M.D. 01/03/2025 3:59 PM
--- NOTE | 2025-01-03 15:44 | XRay Report ---
XR chest 1V not portable CLINICAL HISTORY: s/p left thora COMPARISON STUDY: Chest CT and chest radiograph January 02, 2025. FINDINGS: There is no pneumothorax following left thoracentesis. The left pleural effusion has signif icantly decreased in size. There is a small right pleural effusion. Cardiomediastinal silhouette is u nremarkable. Pulmonary vascular congestion is again noted. IMPRESSION: No pneumothorax following left thoracentesis. ACT 112: Negative or not required by law. Electronically signed by: Westley Levy M.D. 01/03/2025 3:43 PM
--- NOTE | 2025-01-03 16:00 | Hospitalist Progress Note ---
Date of Service January 03, 2025 Assessment & Plan (1) Bilateral edema of lower extremity: (2) Ascites: (3) Pleural effusion: (4) Thrombocytosis: Plan This pt is a 69 yo female with a h/o COPD/asthma, former smoker, obesity and gastric bypass surgery, CKD stage III, HTN, HLD,hypothyroidism, Anxiety/depression, and DMII who presents for the second time in 2 weeks to the hospital for leg swelling and shortness of breath. She was diuresed last admission with no improvement and then treated as an outpt with prednisone with no improvement. Also has more recent c/o abdominal distension. With mild anemia and worsening thrombocytosis. On admission was found to have a left pleural effusion on CXR and was treated with IV steroids. SHe also had an elevated troponin and BNP, with recent ECHO with preserved EF. Further workup after admission revealed mod-large left> right pleural effusions, ascites, and multiple pelvis and abdominal wall tumors.CTA Chest neg for PE and Dopplers BLE neg for DVT #Bilateral edema of lower extremity/Ascites/Pleural effusion - ECHO 12/26 with preserved EF. BNP mildly elevated here but her LE edema and ascites, pleural effusions are all likely related to newly diagnosed malignancy in the pelvis and abdomen seen on CT Chest/Abd/Pel. Dopplers bilateral LEs neg for DVT. Discussed all results with pt and may have ovarian primary CA with mets. CEA is within normal range. Had paracentesis with 5L removed and thoracentesis with 550 mL removed on 01/03 Received IV Lasix for 3 days but creatinine rising -consulted Oncology -Follow-up CA-125, ascites and pleural fluid cytology and analysis -If cytology negative on both fluid samples, would need to get IR guided biopsy of an abdominal wall metastasis -Discontinue further IV lasix as edema is likely secondary to pelvic masses and malignant ascites -high risk for VTE_start DVT prophylaxis as soon as possible after procedures on 01/03-plan to start Lovenox in the a.m. on 01/04 -await cytology results and tumor markers before pursuing further eval/treatment with Oncology or possibly with TRENCH DIGGING MACHINE OPERATOR-Onc -Consult dietitian for low appetite for nutritional supplementation #Elevated troponin: - troponin 80.5-> 77.2, no chest pain- EKG with Nonspecific ST changes- ?T wave inversions anterolateral leads changed from previous - Likely demand ischemia in the setting of pleural effusions and mod LVH -Appreciate Cardio consult-control BP-add on ARB or ACEi if BPs remain elevated off amlodipine #Thrombocytosis/Fe deficiency anemia- platelets up trending over the past month now in 600s-700s. Has a h/o gastric bypass and is mildly anemia, MCV has gone down over last month. Checked Fe studies-mixed Fe def plus chronic disease. Checked B12, folate-normal; recent TSH 5.1 in 10/2024. Elevated platelets likely from reactive to presumed malignancy or reactive to Fe deficiency. Gave Venofer 200 mg IV on 01/02 -follow CBC -Continue Venofer replacement-give 300 mg IV on 01/03 #Elevated INR: - INR= 2.4 on admission and been reduced to 2 1.3 after receiving vitamin K-likely nutritional deficiency -discussed with Heme, no need for mixing studies #Type 2 diabetes mellitus: -HgbA1C 7.5% in 10/2024. With hypoglycemia on the evening of 01/02. IV steroids were discontinued -continue basal and bolus insulin but reduce Lantus to 15 units and loosen correction factor now that she is off steroids #Hypertension:-amlodipine was stopped as an outpatient in the setting of LE edema. BPs are now normal after removal of large volume ascites - consider adding on ARB or ACEi if needed #Stage III chronic kidney disease: - creatine at baseline around 1.2-1.3 - continue to trend BMP -Renally dose medications and avoid nephrotoxins # Hypothyroidism: TSH 5.1 in 10/2024 - continue levothyroxine home dose and follow as outpt #Status post gastric bypass for obesity: -noted, places her at risk for nutritional deficiencies #COPD-no acute issues-discontinued steroids ordered on admission as her dyspnea is not from asthma or COPD DVT proph-add Lovenox for the a.m. of 01/04 now that she has had her procedures- she is at high risk for DVT Dispo-continued stay but can downgrade off telemetry, PT/OT consults ordered, need to see if rehab is needed. Discussed all care with her Sister Dawn on the phone on 01/02 and 01/03 Admission and Anticipated Discharge Date Admission Date: January 01, 2025 Subjective Patient had paracentesis and thoracentesis today. Feels much improved with her breathing and abdominal distention. Has a very low appetite. Moved her bowels this morning. Feels a little bit stronger and was able to walk to the bathroom and back by herself. Telemetry with normal sinus rhythm with rates in the 70s to 80s Physical Exam Constitutional: WD/WN, vitals as above + obese Respiratory: normal respiratory effort; not tachypneic Auscultation: + diminished lung sounds (at bases bilat but improved from previous); no crackles, no rhonchi and no wheezes Cardiovascular: Rate/Rhythm: regular rate and regular rhythm Heart Sounds: no murmur Extremities: + edema (2+ pitting edema of BLEs to her thighs bilat) Gastrointestinal (Abdomen): Inspection/Auscultation: normal bowel sounds; abdomen not distended Percussion/Palpation: abdomen soft and + abdominal mass (palpable masses abd wall right side and left); abdomen nontender Psychiatric: Orientation: alert and oriented x 3 Mood: + anxious mood Results & Data Results & Data Vital Signs (Past 12 Hours) Vital Signs Temp Pulse Pulse Resp BP Pulse Ox O2 Del Method 01/03/25 11:11 36.3 C L 77 18 136/87 93 Room Air 01/03/25 10:44 79 01/03/25 07:11 77 18 93 Room Air Laboratory Results CBC, CMP, LDH reviewed PG Care Time/CCT Total # of Minutes Spent Total Time Spent with Patient: Total time spent is greater than 50% in coordination of care (as documented) at patient's floor/unit and/or counseling patient: Coding Level of Care Code 96600 SUB INP/OBS CARE 3/50MIN Diagnoses Bilateral edema of lower extremity R60.0 Ascites R18.8 Pleural effusion J90 Thrombocytosis D75.839
[2025-01-03 16:28] LABS: Total Protein Pleural Fluid 3.5 gm/dl
[2025-01-03 16:39] LABS: Albumin Peritoneal Fluid 2.3 gm/dl; Total Protein Peritoneal Fluid 3.8 gm/dl
[2025-01-03] MEDS: IRON SUCROSE 300 MG in SODIUM CHLORIDE 0.9% 250 ML IV SCH (16:53)
[2025-01-03 18:48] LABS: Appearance Peritoneal Fluid Bloody; Appearance Pleural Fluid Bloody; Color Peritoneal Fluid Red; Color Pleural Fluid Red; Lymphocytes, Fluid 21 %; Lymphocytes, Fluid 24 %; Mono,Macrophage,Mesothelial 51 %; Mono,Macrophage,Mesothelial 76 %; Neutrophils, Fluid 25 %; Neutrophils, Fluid 3 %; RBC Peritoneal Fluid Auto 137000 /uL; RBC Pleural Fluid Auto 170000 /uL; Source Pleural Fluid Left Lung; WBC Peritoneal Fluid Auto 753 /ul (0-300); WBC Pleural Fluid Auto 1371 /uL
[2025-01-04] MEDS: ENOXAPARIN INJ 40 MG/0.4 ML SYR SQ SCH (08:57)
[2025-01-04] MEDS: NYSTATIN POWDER 15GM BTL EXT SCH (09:02)
[2025-01-04 10:47] LABS: Basophils # (auto) 0.03 K/uL (0.00-0.20); Basophils % (auto) 0.1 %; Hematocrit (blood only) 37.2 % (37.0-47.0); Hemoglobin 12.4 g/dl (12.0-16.0); Immature Granulocytes % (auto) 0.9 %; Lymphocytes # (auto) 1.13 K/uL (1.20-3.40); Lymphocytes % (auto) 5.1 %; Mean Corpuscular Hgb Conc 33.3 g/dL (32.0-36.0); Mean Platelet Volume 9.6 fL (9.4-12.4); Monocytes # (auto) 1.72 K/uL (0.11-0.59); Monocytes % (auto) 7.7 %; Neutrophils # (auto) 19.26 K/uL (1.40-6.50); Neutrophils % (auto) 86.2 %; Nucleated RBC # (auto) 0.04 K/uL (0.00-0.12); Nucleated RBC % (auto) 0.2 %; Platelet Count 630 K/uL (130-400); RDW Coefficient of Variation 17.4 % (11.5-14.5); RDW Standard Deviation 53.7 fL (36.4-46.3); Red Blood Count 4.43 M/uL (4.20-5.40); White Blood Count 22.34 K/ul (4.8-10.8)
[2025-01-04 11:22] LABS: Calcium 8.3 mg/dl (8.6-10.3); Potassium 3.9 mmol/L (3.5-5.1)
[2025-01-04 11:27] LABS: BUN Creatinine Ratio 47.1 (10-20); Creatinine Clr Calc Pharmacy 35.6 ml/min
--- NOTE | 2025-01-04 11:32 | Hospitalist Progress Note ---
Date of Service January 04, 2025 Assessment & Plan (1) Bilateral edema of lower extremity: (2) Ascites: (3) Pleural effusion: (4) Thrombocytosis: Plan This pt is a 69 yo female with a h/o COPD/asthma, former smoker, obesity and gastric bypass surgery, CKD stage III, HTN, HLD,hypothyroidism, Anxiety/depression, and DMII who presents for the second time in 2 weeks to the hospital for leg swelling and shortness of breath. She was diuresed last admission with no improvement and then treated as an outpt with prednisone with no improvement. Also has more recent c/o abdominal distension. With mild anemia and worsening thrombocytosis. On admission was found to have a left pleural effusion on CXR and was treated with IV steroids. She also had an elevated troponin and BNP, with recent ECHO with preserved EF. Further workup after admission revealed mod-large left> right pleural effusions, ascites, and multiple pelvis and abdominal wall tumors.CTA Chest neg for PE and Dopplers BLE neg for DVT. 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 BNP mildly elevated here but her LE edema and ascites, pleural effusions are all related to metastatic ovarian CA in the pelvis and abdomen seen on CT Chest/Abd/Pel. Dopplers bilateral LEs neg for DVT. Had paracentesis with 5L removed and thoracentesis with 550 mL removed on 01/03. Received IV Lasix for 3 days but creatinine rising and was stopped CEA normal, CA-125 pending, final path blocks and molecular/genetic studies pending Pleural fluid exudative, culture pending, cytology confirms high grade adenocarcinoma Peritoneal fluid culture pending, high WBCs but likely from bloody malignant ascites, and cytology with high grade adenocarcinoma, likely ovarian -Oncology plans on starting chemo after final path and then will need debulking surgery with PROJECT MANAGEMENT SPECIALIST-Onc -Follow-up CA-125, ascites and pleural fluid cxs -Consulted dietitian for low appetite for nutritional supplementation -follow clinically for need for repeat paracentesis or thoracentesis in future -she does not need a port for her chemo as per Oncology unless she prefers as long as she has good IV access which thus far she does #Elevated troponin: - troponin 80.5-> 77.2, no chest pain- EKG with Nonspecific ST changes- ?T wave inversions anterolateral leads changed from previous - Likely demand ischemia in the setting of pleural effusions and mod LVH -Appreciate Cardio consult-control BP-recommends add on ARB or ACEi if BPs remain elevated off amlodipine-BPs normal #Thrombocytosis/Fe deficiency anemia- platelets up trending over the past month now in 600s-700s. Has a h/o gastric bypass and is mildly anemia, MCV has gone down over last month. Checked Fe studies-mixed Fe def plus chronic disease. Checked B12, folate-normal; recent TSH 5.1 in 10/2024. Elevated platelets likely from reactive to presumed malignancy or reactive to Fe deficiency. Plts lower at 630. WBC 22 now from previous IV steroid use, hgb stable at 11-02 -follow CBC -Continue Venofer replacement-give a third dose of 300 mg IV on 01/04 #Elevated INR: - INR= 2.4 on admission and been reduced to 2 1.3 after receiving vitamin K-likely nutritional deficiency -discussed with Heme, no need for mixing studies #Type 2 diabetes mellitus: -HgbA1C 7.5% in 10/2024. With hypoglycemia on the evening of 01/02. IV steroids were discontinued -continue basal and bolus insulin and adjust as needed #Hypertension:-amlodipine was stopped as an outpatient in the setting of LE edema. BPs are now normal after removal of large volume ascites - consider adding on ARB or ACEi if needed #Stage III chronic kidney disease: - creatine at baseline around 1.2-1.3 - continue to trend BMP -Renally dose medications and avoid nephrotoxins # Hypothyroidism: TSH 5.1 in 10/2024 - continue levothyroxine home dose and follow as outpt #Status post gastric bypass for obesity: -noted, places her at risk for nutritional deficiencies #COPD/Asthma-discontinued steroids ordered on admission as her dyspnea is not from asthma or COPD. Some mild wheezing on 01/04 -continue prn inhalers DVT proph- Lovenox SQ-she is at high risk for DVT Dispo-continued stay on med/surg, PT/OT consults recommend rehab-will d/w CM about making referrals to SNFs in [place]/[facility] at her request. Discussed all care with her Sister Dawn on the phone on 01/02 and 01/03, 2/14 Admission and Anticipated Discharge Date Admission Date: January 01, 2025 Subjective Pt felt nauseated this AM and then felt better after eating breakfast. No abd pain. Evans a little wheezy and SOB overnight and was placed on O2 which is now weaned off again. Moved her bowels today, no blood. I discussed her care with Pathology as well as Oncology Physical Exam Constitutional: WD/WN, vitals as above + obese Respiratory: normal respiratory effort; not tachypneic Auscultation: + diminished lung sounds (at bases bilat but improved from previous) and + wheezes (mild bilat exp); no crackles and no rhonchi Cardiovascular: Rate/Rhythm: regular rate and regular rhythm Heart Sounds: no murmur Extremities: + edema (2+ pitting edema of BLEs to her thighs bilat) Gastrointestinal (Abdomen): Inspection/Auscultation: + abdomen distended (mild) and normal bowel sounds Percussion/Palpation: abdomen soft (with mild distension) and + abdominal mass (palpable masses abd wall right side and left); abdomen nontender Psychiatric: Orientation: alert and oriented x 3 Results & Data Results & Data Vital Signs (Past 12 Hours) Vital Signs Temp Pulse Pulse Pulse Resp BP Pulse Ox 01/04/25 10:50 86 01/04/25 10:39 01/04/25 08:00 36.9 C 101 H 15 120/84 93 01/04/25 07:40 36.7 C 89 16 124/76 94 01/04/25 03:23 36.6 C 96 H 18 138/94 95 O2 Del Method O2 Flow Rate 01/04/25 10:50 01/04/25 10:39 Nasal Cannula 2 01/04/25 08:00 Room Air 01/04/25 07:40 Nasal Cannula 3 01/04/25 03:23 Nasal Cannula 3 Laboratory Results CBC, BMP PG Care Time/CCT Total # of Minutes Spent Total Time Spent with Patient: Total time spent is greater than 50% in coordination of care (as documented) at patient's floor/unit and/or counseling patient: Coding Level of Care Code 41115 SUB INP/OBS CARE 3/50MIN Diagnoses Bilateral edema of lower extremity R60.0 Ascites R18.8 Pleural effusion J90 Thrombocytosis D75.839
[2025-01-04] MEDS: ONDANSETRON INJ 2 MG/ML 2 ML VIAL IV PRN (15:22)
[2025-01-04] MEDS: MELATONIN 3 MG TAB PO PRN (21:39)
--- NOTE | 2025-01-05 06:35 | Hematology/Oncology Prog Note ---
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 Had an extensive discussion with patient and her sister today. Explained to her that based on this, would recommend starting chemotherapy with carboplatin, paclitaxel and bevacizumab giving IV every 21 days x 3 cycles followed possibly by debulking surgery and then 3 more cycles of adjuvant chemotherapy.She has good veins and prefers not to have a port placed at this time.Will plan to start treatment upon discharge from hospital. -Plan to refer her to [facility] oncology at [facility] upon discharge -Recommend bone scan to better evaluate posterior right iliac bone lesion seen on CT imaging. Admission and Anticipated Discharge Date Admission Date: January 01, 2025 Subjective Underwent paracentesis and thoracentesis on 01/04/2025. Preliminary cytology results from pleural and peritoneal specimen suggestive of high-grade serous ovarian cancer, IHC pending. CA125 elevated at 2602 Results & Data Vital Signs (Past 12 Hours) Vital Signs Temp Pulse Resp BP Pulse Ox O2 Del Method 01/05/25 00:19 37.0 C 79 18 111/70 95 Room Air 01/04/25 21:40 Room Air
[2025-01-05 06:55] LABS: Basophils # (auto) 0.01 K/uL (0.00-0.20); Eosinophils # (auto) 0.01 K/uL (0.00-0.50); Hematocrit (blood only) 33.2 % (37.0-47.0); Hemoglobin 10.5 g/dl (12.0-16.0); Immature Granulocytes # (auto) 0.25 K/uL (0.01-0.20); Immature Granulocytes % (auto) 1.2 %; Lymphocytes # (auto) 1.31 K/uL (1.20-3.40); Lymphocytes % (auto) 6.1 %; Mean Corpuscular Hemoglobin 27.5 pg (25.0-34.0); Mean Corpuscular Hgb Conc 31.6 g/dL (32.0-36.0); Mean Corpuscular Volume 86.9 fL (80.0-100.0); Mean Platelet Volume 9.8 fL (9.4-12.4); Monocytes # (auto) 2.39 K/uL (0.11-0.59); Monocytes % (auto) 11.1 %; Neutrophils # (auto) 17.49 K/uL (1.40-6.50); Neutrophils % (auto) 81.6 %; Nucleated RBC # (auto) 0.03 K/uL (0.00-0.12); Nucleated RBC % (auto) 0.1 %; Platelet Count 502 K/uL (130-400); RDW Coefficient of Variation 17.7 % (11.5-14.5); RDW Standard Deviation 55.8 fL (36.4-46.3); Red Blood Count 3.82 M/uL (4.20-5.40); White Blood Count 21.46 K/ul (4.8-10.8)
[2025-01-05 07:19] LABS: BUN Creatinine Ratio 44.2 (10-20); Calcium 8.2 mg/dl (8.6-10.3); Creatinine Clr Calc Pharmacy 35.6 ml/min; Potassium 4.1 mmol/L (3.5-5.1)
--- NOTE | 2025-01-05 15:13 | Hospitalist Progress Note ---
Date of Service January 05, 2025 Assessment & Plan (1) Primary cancer of ovary with widespread metastatic disease: (2) Bilateral edema of lower extremity: (3) Pleural effusion: (4) Thrombocytosis: Plan This pt is a 69 yo female with a h/o COPD/asthma, former smoker, obesity and ga stric bypass surgery, CKD stage III, HTN, HLD,hypothyroidism, Anxiety/depression, and DMII who presents for the second time in 2 weeks to the hospital for leg swelling and shortness of breath. She was diuresed last admission with no improvement and then treated as an outpt with prednisone with no improvement. Also has more recent c/o abdominal distension. With mild anemia and worsening thrombocytosis. On admission was found to have a left pleural effusion on CXR and was treated with IV steroids. She also had an elevated troponin and BNP, with recent ECHO with preserved EF. Further workup after admission revealed mod-large left> right pleural effusions, ascites, and multiple pelvis and abdominal wall tumors.CTA Chest neg for PE and Dopplers BLE neg for DVT. 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 BNP mildly elevated here but her LE edema and ascites, pleural effusions are all related to metastatic ovarian CA in the pelvis and abdomen seen on CT Chest/Abd/Pel. Dopplers bilateral LEs neg for DVT. Had paracentesis with 5L removed and thoracentesis with 550 mL removed on 01/03. Received IV Lasix for 3 days but creatinine rising and was stopped CEA normal, CA-125 quite elevated at 2602 , final path blocks and molecular/genetic studies pending Pleural fluid exudative, culture pending, cytology confirms high grade adenocarcinoma Peritoneal fluid culture pending, high WBCs but likely from bloody malignant ascites, and cytology with high grade adenocarcinoma, likely ovarian -Oncology plans on starting chemo after final path and then will need debulking surgery with [employer] INTERMEDIATE SCHOOL PRINCIPAL-Onc, followed by further chemo -check bone scan for indeterminate sclerotic lesion in pelvis-likely on Tuesday -Follow-up CA-125, ascites and pleural fluid cxs -Consulted dietitian for low appetite for nutritional supplementation -follow clinically for need for repeat paracentesis or thoracentesis in future- maybe next week if abdominal distension worsens -she does not need a port for her chemo as per Oncology as she has good IV access #Elevated troponin: - troponin 80.5-> 77.2, no chest pain- EKG with Nonspecific ST changes- ?T wave inversions anterolateral leads changed from previous - Likely demand ischemia in the setting of pleural effusions and mod LVH -Appreciate Cardio consult-control BP-recommends add on ARB or ACEi if BPs remain elevated off amlodipine-BPs normal #Thrombocytosis/Fe deficiency anemia- platelets up trending over the past month now in 600s-700s. Has a h/o gastric bypass and is mildly anemia, MCV has gone down over last month. Checked Fe studies-mixed Fe def plus chronic disease. Checked B12, folate-normal; recent TSH 5.1 in 10/2024. Elevated platelets likely from reactive to presumed malignancy or reactive to Fe deficiency. Gave Venofer 300mg IV x 3 doses. Plts down to 530. Hgb slightly lower at 10.5, WBC count high from previous steroids and now decreasing -follow CBC #Elevated INR: - INR= 2.4 on admission and been reduced to 2 1.3 after receiving vitamin K-likely nutritional deficiency -discussed with Heme, no need for mixing studies #Type 2 diabetes mellitus: -HgbA1C 7.5% in 10/2024. With hypoglycemia on the evening of 01/02. IV steroids were discontinued -continue basal and bolus insulin and adjust as needed #Hypertension:-amlodipine was stopped as an outpatient in the setting of LE edema. BPs are now normal after removal of large volume ascites - consider adding on ARB or ACEi if needed #Stage III chronic kidney disease: - creatine at baseline around 1.2-1.3 - continue to trend BMP -Renally dose medications and avoid nephrotoxins # Hypothyroidism: TSH 5.1 in 10/2024 - continue levothyroxine home dose and follow as outpt #Status post gastric bypass for obesity: -noted, places her at risk for nutritional deficiencies #COPD/Asthma-discontinued steroids ordered on admission as her dyspnea is not from asthma or COPD. Some mild wheezing persists -change inhalers to Duonbes scheduled qid DVT proph- Lovenox SQ-she is at high risk for DVT Dispo-continued stay on med/surg, PT/OT consults recommend rehab- referrals to SNFs in [place]/[facility] at her request have been made. Discharge early next week. Determine if needs repeat paracentesis before discharge Discussed all care with her Sister Dawn on the phone on 01/02 and 01/03, 01/04 Admission and Anticipated Discharge Date Admission Date: January 01, 2025 Subjective Feels she is wheezing and nebs work better than inhalers-asks to switch back to nebs. Also feels like her abdomen is swelling back up again and might need another paracentesis. She is hopeful that the bone scan is negative because then she is considered stage 3 cancer as per her d/w Oncology Physical Exam Constitutional: WD/WN, vitals as above + obese Respiratory: normal respiratory effort; not tachypneic Auscultation: + diminished lung sounds (at bases bilat but improved from previous) and + wheezes (mild bilat exp); no crackles and no rhonchi Cardiovascular: Rate/Rhythm: regular rate and regular rhythm Heart Sounds: no murmur Extremities: + edema (1+ edema of BLEs to knees bilat, improved) Gastrointestinal (Abdomen): Inspection/Auscultation: + abdomen distended (mild) and normal bowel sounds Percussion/Palpation: abdomen soft (with mild- moderate distension) and + abdominal mass (palpable masses abd wall right side and left); abdomen nontender Psychiatric: Orientation: alert and oriented x 3 Results & Data Results & Data Vital Signs (Past 12 Hours) Vital Signs Temp Pulse Resp BP BP Pulse Ox O2 Del Method 01/05/25 15:07 37.3 C 78 18 121/68 93 Room Air 01/05/25 12:40 82 18 94 Room Air 01/05/25 08:20 Room Air 01/05/25 07:17 36.4 C L 88 18 110/75 94 Room Air Laboratory Results CBC, BMP, fluid cxs reviewed PG Care Time/CCT Total # of Minutes Spent Total Time Spent with Patient: Total time spent is greater than 50% in coordination of care (as documented) at patient's floor/unit and/or counseling patient: Coding Level of Care Code 14185 SUB INP/OBS CARE 2/35MIN Diagnoses Primary cancer of ovary with widespread metastatic disease C56.9; C80.0 Bilateral edema of lower extremity R60.0 Pleural effusion J90 Thrombocytosis D75.839
[2025-01-05] MEDS: ALBUT/IPRATROP 3MG/0.5MG NEB 3 ML VIAL NEB SCH (20:00)
[2025-01-06 09:20] LABS: Basophils # (auto) 0.01 K/uL (0.00-0.20); Basophils % (auto) 0.1 %; Hematocrit (blood only) 38.1 % (37.0-47.0); Hemoglobin 12.3 g/dl (12.0-16.0); Immature Granulocytes # (auto) 0.14 K/uL (0.01-0.20); Immature Granulocytes % (auto) 0.8 %; Lymphocytes # (auto) 0.95 K/uL (1.20-3.40); Lymphocytes % (auto) 5.5 %; Mean Corpuscular Hgb Conc 32.3 g/dL (32.0-36.0); Mean Corpuscular Volume 86.6 fL (80.0-100.0); Mean Platelet Volume 9.8 fL (9.4-12.4); Monocytes # (auto) 1.81 K/uL (0.11-0.59); Monocytes % (auto) 10.4 %; Neutrophils # (auto) 14.49 K/uL (1.40-6.50); Neutrophils % (auto) 83.2 %; Nucleated RBC # (auto) 0.03 K/uL (0.00-0.12); Nucleated RBC % (auto) 0.2 %; Platelet Count 568 K/uL (130-400); RDW Coefficient of Variation 17.8 % (11.5-14.5); RDW Standard Deviation 56.2 fL (36.4-46.3)
[2025-01-06 09:37] LABS: BUN Creatinine Ratio 39.2 (10-20); Calcium 8.5 mg/dl (8.6-10.3); Creatinine Clr Calc Pharmacy 34.3 ml/min; Potassium 3.8 mmol/L (3.5-5.1)
[2025-01-06] MEDS ORDERED: POLYETHYLENE (MIRALAX) 17 GM PACK PO PRN (10:05)
[2025-01-06] MEDS: LANTUS PER UNIT CHARGE SQ ONE (10:30)
[2025-01-06] MEDS: POLYETHYLENE (MIRALAX) 17 GM PACK PO PRN (10:32)
[2025-01-06] MEDS: SENNA 8.6 MG TAB PO SCH (14:02)
--- NOTE | 2025-01-06 18:39 | Hospitalist Progress Note ---
Date of Service January 06, 2025 Assessment & Plan (1) Primary cancer of ovary with widespread metastatic disease: (2) Bilateral edema of lower extremity: (3) Pleural effusion: (4) Thrombocytosis: Plan This pt is a 69 yo female with a h/o COPD/asthma, former smoker, obesity and ga stric bypass surgery, CKD stage III, HTN, HLD,hypothyroidism, Anxiety/depression, and DMII who presents for the second time in 2 weeks to the hospital for leg swelling and shortness of breath. She was diuresed last admission with no improvement and then treated as an outpt with prednisone with no improvement. Also has more recent c/o abdominal distension. With mild anemia and worsening thrombocytosis. On admission was found to have a left pleural effusion on CXR and was treated with IV steroids for asthma exacerbation. She also had an elevated troponin and BNP, with recent ECHO with preserved EF. Further workup after admission revealed mod-large left> right pleural effusions, ascites, and multiple pelvis and abdominal wall tumors.CTA Chest neg for PE and Dopplers BLE neg for DVT. 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 BNP mildly elevated here but her LE edema and ascites, pleural effusions are all related to metastatic ovarian CA in the pelvis and abdomen seen on CT Chest/Abd/Pel. Dopplers bilateral LEs neg for DVT. Had paracentesis with 5L removed and thoracentesis with 550 mL removed on 01/03. Received IV Lasix for 3 days but creatinine rising and was stopped CEA normal, CA-125 quite elevated at 2602 , final path blocks and molecular/genetic studies pending Pleural fluid exudative, culture pending, cytology confirms high grade adenocarcinoma (as per verbal report from Pathology but final path not in computer yet) Peritoneal fluid culture pending, high WBCs but likely from bloody malignant ascites, and cytology with high grade adenocarcinoma, likely ovarian -Oncology plans on starting chemo after final path and then will need debulking surgery with [facility]IVER-Onc, followed by further chemo -check bone scan for indeterminate sclerotic lesion in pelvis-plan on Tuesday -Follow-up peritoneal and pleural fluid cxs -Consulted dietitian for low appetite for nutritional supplementation -needs repeat paracentesis on Tuesday for worsening ascites-ordered -she does not need a port for her chemo as per Oncology as she has good IV access #Elevated troponin: - troponin 80.5-> 77.2, no chest pain- EKG with Nonspecific ST changes- ?T wave inversions anterolateral leads changed from previous - Likely demand ischemia in the setting of pleural effusions and mod LVH -Appreciate Cardio consult-control BP-recommends add on ARB or ACEi if BPs remain elevated off amlodipine-BPs normal #Thrombocytosis/Fe deficiency anemia- platelets up trending over the past month to the 600s-700s. Has a h/o gastric bypass and is mildly anemia, MCV has gone down over last month. Checked Fe studies-mixed Fe def plus chronic disease. Checked B12, folate-normal; recent TSH 5.1 in 10/2024. Elevated platelets likely from reactive to presumed malignancy or reactive to Fe deficiency. Gave Venofer 300mg IV x 3 doses. Plts down to 500s. Hgb stable at 12, WBC count high from previous steroids and now decreasing -follow CBC #Elevated INR: - INR= 2.4 on admission and been reduced to 1.3 after receiving vitamin K-likely nutritional deficiency -discussed with Heme, no need for mixing studies #Type 2 diabetes mellitus: -HgbA1C 7.5% in 10/2024. With hypoglycemia on the evening of 01/02. IV steroids were discontinued -continue basal and bolus insulin and adjust as needed #Hypertension:-amlodipine was stopped as an outpatient in the setting of LE edema. BPs are now normal after removal of large volume ascites - consider adding on ARB or ACEi if needed #Stage III chronic kidney disease: - creatine at baseline around 1.2-1.3 - continue to trend BMP -Renally dose medications and avoid nephrotoxins # Hypothyroidism: TSH 5.1 in 10/2024 - continue levothyroxine home dose and follow as outpt #Status post gastric bypass for obesity: -noted, places her at risk for nutritional deficiencies #COPD/Asthma-discontinued steroids ordered on admission as her dyspnea is not from asthma or COPD. Some mild wheezing persists -continue Duonebs scheduled qid DVT proph- Lovenox SQ-she is at high risk for DVT-hold in AM for paracentesis Dispo-continued stay on med/surg, PT/OT consults recommend rehab- referrals to SNFs in [place] at her request have been made. Discharge early next week. Determine if needs repeat paracentesis before discharge Discussed all care with her Sister Dawn on the phone on 01/02 and 01/03, 01/04, and 01/06 Admission and Anticipated Discharge Date Admission Date: January 01, 2025 Subjective Pt feels her abdomen is very swollen again and having trouble breathing. is requesting a repeat paracentesis. She is also feeling very constipated. Had a very small stool today after taking Miralax Physical Exam Constitutional: WD/WN, vitals as above + obese Respiratory: normal respiratory effort; not tachypneic Auscultation: + diminished lung sounds (at bases bilat but improved from previous) and + wheezes (mild bilat exp); no crackles and no rhonchi Cardiovascular: Rate/Rhythm: regular rate and regular rhythm Heart Sounds: no murmur Extremities: + edema (1+ edema of BLEs to knees bilat, improved) Gastrointestinal (Abdomen): Inspection/Auscultation: + abdomen distended (moderate-severe) and normal bowel sounds Percussion/Palpation: + abdomen tender (mild, diffuse, no guarding) and + abdominal mass (palpable masses abd wall right side and left) Psychiatric: Orientation: alert and oriented x 3 Results & Data Results & Data Vital Signs (Past 12 Hours) Vital Signs Temp Pulse Resp BP BP Pulse Ox O2 Del Method 01/06/25 15:45 88 18 95 Room Air 01/06/25 10:48 36.6 C 93 H 18 142/83 H 97 Room Air 01/06/25 10:45 Room Air 01/06/25 08:37 36.6 C 71 20 128/71 98 Room Air 01/06/25 08:00 Room Air 01/06/25 07:18 89 17 93 Room Air Laboratory Results CBC, CMP, pleural and peritoneal AFB and fluid cxs reviewed PG Care Time/CCT Total # of Minutes Spent Total Time Spent with Patient: Total time spent is greater than 50% in coordination of care (as documented) at patient's floor/unit and/or counseling patient: Coding Level of Care Code 41462 SUB INP/OBS CARE 2/35MIN Diagnoses Primary cancer of ovary with widespread metastatic disease C56.9; C80.0 Bilateral edema of lower extremity R60.0 Pleural effusion J90 Thrombocytosis D75.839
[2025-01-07 07:58] LABS: Basophils # (auto) 0.02 K/uL (0.00-0.20); Basophils % (auto) 0.1 %; Eosinophils # (auto) 0.02 K/uL (0.00-0.50); Eosinophils % (auto) 0.1 %; Hematocrit (blood only) 32.3 % (37.0-47.0); Hemoglobin 10.4 g/dl (12.0-16.0); Immature Granulocytes # (auto) 0.15 K/uL (0.01-0.20); Lymphocytes # (auto) 1.09 K/uL (1.20-3.40); Lymphocytes % (auto) 7.1 %; Mean Corpuscular Hemoglobin 27.7 pg (25.0-34.0); Mean Corpuscular Hgb Conc 32.2 g/dL (32.0-36.0); Mean Corpuscular Volume 85.9 fL (80.0-100.0); Mean Platelet Volume 9.8 fL (9.4-12.4); Neutrophils # (auto) 12.42 K/uL (1.40-6.50); Neutrophils % (auto) 80.7 %; Platelet Count 539 K/uL (130-400); RDW Coefficient of Variation 17.7 % (11.5-14.5); RDW Standard Deviation 54.6 fL (36.4-46.3); Red Blood Count 3.76 M/uL (4.20-5.40)
[2025-01-07 08:10] LABS: BUN Creatinine Ratio 43.8 (10-20); Creatinine Clr Calc Pharmacy 38.3 ml/min; Potassium 3.5 mmol/L (3.5-5.1)
[2025-01-07] MEDS: LANTUS PER UNIT CHARGE SQ SCH (08:28)
[2025-01-07] MEDS ORDERED: SOD PHOSPHATE/SOD BIPHOSPHATE ENEMA 132 ML BTL PR PRN (09:44)
[2025-01-07] MEDS: ALBUT/IPRATROP 3MG/0.5MG NEB 3 ML VIAL NEB PRN (09:56)
[2025-01-07] MEDS: SOD PHOSPHATE/SOD BIPHOSPHATE ENEMA 132 ML BTL PR STA (12:39)
--- NOTE | 2025-01-07 13:16 | Hospitalist Progress Note ---
Date of Service January 07, 2025 Assessment & Plan (1) Primary cancer of ovary with widespread metastatic disease: Plan: Unfortunately it appears the patient has ovarian cancer with carcinomatosis causing the development of malignant ascites and the pleural effusions. She has undergone thoracentesis on admission and paracentesis now twice including today, January 07. She has been seen by oncology and will start chemotherapy soon. Pathology reveals adenocarcinoma of probable ovarian origin. (2) Asthma exacerbation: Plan: Due to development of pleural effusions from the intra-abdominal carcinomatosis. She has undergone thoracentesis and paracentesis and her respiratory status stabilized. She is presently on room air. (3) Bilateral edema of lower extremity: Plan: And due to ovarian malignancy with intra-abdominal carcinomatosis. Supportive care. No response to parenteral Lasix trial. (4) Pleural effusion: Plan: Due to stage IV ovarian carcinoma. She underwent thoracentesis this admission. Supportive care. (5) Elevated troponin: Plan: No chest pain. No evidence of acute coronary syndrome. Appears to be supply demand mismatch. (6) Type 2 diabetes mellitus: Plan: ADA diet. Sliding scale coverage as needed. Basal insulin therapy (7) Hypertension: Plan: amlodipine was recently stopped as an outpatient in the setting of LE edema but had little effect. Blood pressure controlled at present (8) Stage III chronic kidney disease: Plan: Monitor intake and output. Serial labs. Stable Plan Anticipate eventual discharge to SNF when arrangements are finalized. She will start outpatient chemotherapy as soon as possible. Admission and Anticipated Discharge Date Admission Date: January 01, 2025 Subjective Alert and oriented. No distress. It appears she has abdominal carcinomatosis from metastatic ovarian carcinoma. On admission, she underwent paracentesis and thoracentesis and underwent paracentesis again today, January 07. She has been seen by oncology and bone scan has been ordered as recommended. The patient has opted for SNF placement and case management is aware and involved. Review of Systems 2 Review of Systems: Constitutionalno fever or chills ENTno blurred vision, no double vision, no epistaxis, no sore throat Respiratoryno cough, no wheezing, no shortness of breath Cardiacno palpitations, no chest pain, no syncope Ann nausea, vomiting, diarrhea, melena, hematochezia. Anorexic. Abdominal distention has developed GUno urinary retention, no urinary incontinence, no dysuria, no hematuria Musculoskeletalno joint pain, no muscle tenderness. Bilateral lower extremity edema has developed Skinno bruising, no rashes, no pruritus Neurogeneralized weakness. No focal deficits Psychno depression, no anxiety Physical Exam 2 Physical Exam: General-alert and oriented x3, no fever, no chills HEENT-head atraumatic and normocephalic, pupils equal and reactive to light, extraocular muscles intact Neck-no lymphadenopathy or thyromegaly, trachea midline Chest-clear to auscultation. No rales, wheezing or rhonchi Cardiac-regular rate and rhythm, normal S1 and S2 Abdomen-normal bowel sounds, no hepatosplenomegaly. Slightly distended Extremities-no cyanosis, clubbing, or edema Neuro-cranial nerves II through XII intact, motor and sensory function within normal limits, strength symmetrical with generalized weakness, no focal deficits Psych-normal affect, normal mood Results & Data Results & Data Vital Signs (Past 12 Hours) Vital Signs Temp Pulse Resp BP Pulse Ox O2 Del Method 01/07/25 09:56 80 22 94 Room Air 01/07/25 08:20 Room Air 01/07/25 07:45 76 18 91 Room Air 01/07/25 07:12 36.6 C 76 18 117/74 94 Room Air Laboratory Results 01/07/25 07:21 01/07/25 07:21 PG Care Time/CCT Total # of Minutes Spent Total Time Spent with Patient: Total time spent is greater than 50% in coordination of care (as documented) at patient's floor/unit and/or counseling patient: Coding Level of Care Code 36332 SUB INP/OBS CARE 3/50MIN Diagnoses Primary cancer of ovary with widespread metastatic disease C56.9; C80.0 Asthma exacerbation J45.901 Bilateral edema of lower extremity R60.0 Pleural effusion J90 Elevated troponin R79.89 Type 2 diabetes mellitus E11.9 Primary hypertension I10 Hypertension type: primary hypertension Stage III chronic kidney disease N18.3 (7) Hypertension Hypertension type: primary hypertension Qualified Code(s): I10 - Essential (primary) hypertension
--- NOTE | 2025-01-07 15:38 | Ultrasound Report ---
ULTRASOUND-GUIDED PARACENTESIS CLINICAL HISTORY: Ascites PROCEDURE: Procedure and risks were explained. Informed consent was obtained. A final timeout was com pleted. The abdomen was prepped and draped in sterile fashion. 1% lidocaine was utilized for skin ane sthesia. Utilizing ultrasound guidance, a 5 [place] safety centesis catheter was advanced into the right lower quadrant pocket of ascites. Ultrasound images were obtained. 4.7 L of yellow-colored ascites fluid wa s removed and discarded. The catheter was removed and Band-Aid applied. The patient tolerated the pro cedure well. Vital signs will be monitored postprocedure. IMPRESSION: Ultrasound-guided paracentesis as above. Performed, dictated, and signed by Pato Red PA-C; to be co-signed by Dr. Westley Levy. Electronically signed by: Westley Levy M.D. 01/07/2025 4:06 PM
--- NOTE | 2025-01-07 16:23 | Nuclear Medicine Report ---
NM bone scan whole body CLINICAL HISTORY: bone lesion, ovarian cancer r/o mets COMPARISON STUDY: CT of the chest, abdomen and pelvis January 02, 2025. TECHNIQUE: 24.4 mCi of technetium 99m MDP was injected IV at 11:50 AM on January 07, 2025. 3 hours f ollowing injection, whole body imaging was performed in the anterior and posterior projections. FINDINGS: Expected soft tissue and renal uptake is present. No suspicious radiotracer uptake is ident ified. There is no abnormal uptake to correspond to the small sclerotic lesion within the medial righ t iliac bone on CT of January 02, 2025. IMPRESSION: 1. No suspicious radiotracer uptake to suggest skeletal metastases. 2. No abnormal uptake to correspond to the small sclerotic lesion within the medial right iliac bone on recent CT. ACT 112: Negative or not required by law. Electronically signed by: Westley Levy M.D. 01/07/2025 4:20 PM
[2025-01-07] MEDS: clonazePAM 1 MG TAB PO PRN (18:21)
[2025-01-08] MEDS: ALBUTEROL 0.5% NEB SOLN 2.5 MG/0.5 ML VIAL NEB PRN (08:24)
--- NOTE | 2025-01-08 12:11 | Hospitalist Progress Note ---
Date of Service January 08, 2025 Assessment & Plan (1) Primary cancer of ovary with widespread metastatic disease: Plan: the patient has ovarian cancer with carcinomatosis causing the development of malignant ascites and the pleural effusions. She has undergone thoracentesis on admission and paracentesis now twice this admission. She has been seen by oncology and will start chemotherapy soon. Pathology reveals adenocarcinoma of probable ovarian origin. (2) Asthma exacerbation: Plan: Due to development of pleural effusions from the intra-abdominal carcinomatosis. She has undergone thoracentesis and paracentesis and her respiratory status stabilized. She is presently on room air. (3) Bilateral edema of lower extremity: Plan: And due to ovarian malignancy with intra-abdominal carcinomatosis. Supportive care. No response to parenteral Lasix trial. (4) Pleural effusion: Plan: Due to stage IV ovarian carcinoma. She underwent thoracentesis this admission. Supportive care. (5) Elevated troponin: Plan: No chest pain. No evidence of acute coronary syndrome. Appears to be supply demand mismatch. (6) Type 2 diabetes mellitus: Plan: ADA diet. Sliding scale coverage as needed. Basal insulin therapy (7) Hypertension: Plan: amlodipine was recently stopped as an outpatient in the setting of LE edema but had little effect. Blood pressure controlled at present (8) Stage III chronic kidney disease: Plan: Monitor intake and output. Serial labs. Stable Plan Anticipate eventual discharge to SNF when arrangements are finalized. She will start outpatient chemotherapy as soon as possible. Admission and Anticipated Discharge Date Admission Date: January 01, 2025 Subjective Alert and oriented. No new problems. She is aware that the nuclear bone scan is negative for any evidence of metastatic disease. I attempted to call her sister, Dawn, but no answer and I left a message. She is medically stable for placement. Review of Systems 2 Review of Systems: Constitutionalno fever or chills ENTno blurred vision, no double vision, no epistaxis, no sore throat Respiratoryno cough, no wheezing, no shortness of breath Cardiacno palpitations, no chest pain, no syncope Ann nausea, vomiting, diarrhea, melena, hematochezia. Anorexic. Abdominal distention has developed GUno urinary retention, no urinary incontinence, no dysuria, no hematuria Musculoskeletalno joint pain, no muscle tenderness. Bilateral lower extremity edema has developed Skinno bruising, no rashes, no pruritus Neurogeneralized weakness. No focal deficits Psychno depression, no anxiety Physical Exam 2 Physical Exam: General-alert and oriented x3, no fever, no chills HEENT-head atraumatic and normocephalic, pupils equal and reactive to light, extraocular muscles intact Neck-no lymphadenopathy or thyromegaly, trachea midline Chest-clear to auscultation. No rales, wheezing or rhonchi Cardiac-regular rate and rhythm, normal S1 and S2 Abdomen-normal bowel sounds, no hepatosplenomegaly. Slightly distended Extremities-no cyanosis, clubbing, or edema Neuro-cranial nerves II through XII intact, motor and sensory function within normal limits, strength symmetrical with generalized weakness, no focal deficits Psych-normal affect, normal mood Results & Data Results & Data Vital Signs (Past 12 Hours) Vital Signs Temp Pulse Resp BP Pulse Ox O2 Del Method 01/08/25 08:26 83 18 95 Room Air 01/08/25 08:05 Room Air 01/08/25 07:47 36.3 C L 84 14 129/77 96 Room Air Laboratory Results 01/07/25 07:21 01/07/25 07:21 PG Care Time/CCT Total # of Minutes Spent Total Time Spent with Patient: Total time spent is greater than 50% in coordination of care (as documented) at patient's floor/unit and/or counseling patient: Coding Level of Care Code 73666 SUB INP/OBS CARE 2/35MIN Diagnoses Primary cancer of ovary with widespread metastatic disease C56.9; C80.0 Asthma exacerbation J45.901 Bilateral edema of lower extremity R60.0 Pleural effusion J90 Elevated troponin R79.89 Type 2 diabetes mellitus E11.9 Primary hypertension I10 Hypertension type: primary hypertension Stage III chronic kidney disease N18.3 (7) Hypertension Hypertension type: primary hypertension Qualified Code(s): I10 - Essential (primary) hypertension
[2025-01-09] MEDS: LANTUS PER UNIT CHARGE SQ SCH (09:51)
--- NOTE | 2025-01-09 12:24 | Hospitalist Progress Note ---
Date of Service January 09, 2025 Assessment & Plan (1) Primary cancer of ovary with widespread metastatic disease: Plan: the patient has ovarian cancer with carcinomatosis causing the development of malignant ascites and the pleural effusions. She has undergone thoracentesis on admission and paracentesis now twice this admission. She has been seen by oncology and will start chemotherapy soon as an outpatient. Pathology reveals adenocarcinoma of probable ovarian origin. (2) Asthma exacerbation: Plan: Due to development of pleural effusions from the intra-abdominal carcinomatosis. She has undergone thoracentesis and paracentesis and her respiratory status stabilized. She is presently on room air. (3) Bilateral edema of lower extremity: Plan: And due to ovarian malignancy with intra-abdominal carcinomatosis. Supportive care. No response to parenteral Lasix trial. (4) Pleural effusion: Plan: Due to stage IV ovarian carcinoma. She underwent thoracentesis this admission. Supportive care. (5) Elevated troponin: Plan: No chest pain. No evidence of acute coronary syndrome. Appears to be supply demand mismatch. (6) Type 2 diabetes mellitus: Plan: ADA diet. Sliding scale coverage as needed. Basal insulin therapy was down titrated yesterday, January 08, and glucose 123 this morning, January 09 (7) Hypertension: Plan: amlodipine was recently stopped as an outpatient in the setting of LE edema but had little effect. Blood pressure controlled at present (8) Stage III chronic kidney disease: Plan: Monitor intake and output. Serial labs. Stable Plan Anticipate eventual discharge to SNF when arrangements are finalized. She will start outpatient chemotherapy as soon as possible. Admission and Anticipated Discharge Date Admission Date: January 01, 2025 Subjective Alert and oriented. The patient states her ascites is reaccumulating but her abdomen is not tense at this time and does not appear to need another paracentesis at this time. Insulin was down titrated yesterday, January 08, and glucose level 123 this morning. Review of Systems 2 Review of Systems: Constitutionalno fever or chills ENTno blurred vision, no double vision, no epistaxis, no sore throat Respiratoryno cough, no wheezing, no shortness of breath Cardiacno palpitations, no chest pain, no syncope Ann nausea, vomiting, diarrhea, melena, hematochezia. Anorexic. Abdominal distention has developed GUno urinary retention, no urinary incontinence, no dysuria, no hematuria Musculoskeletalno joint pain, no muscle tenderness. Bilateral lower extremity edema has developed Skinno bruising, no rashes, no pruritus Neurogeneralized weakness. No focal deficits Psychno depression, no anxiety Physical Exam 2 Physical Exam: General-alert and oriented x3, no fever, no chills HEENT-head atraumatic and normocephalic, pupils equal and reactive to light, extraocular muscles intact Neck-no lymphadenopathy or thyromegaly, trachea midline Chest-clear to auscultation. No rales, wheezing or rhonchi Cardiac-regular rate and rhythm, normal S1 and S2 Abdomen-normal bowel sounds, no hepatosplenomegaly. Slightly distended Extremities-no cyanosis, clubbing, or edema Neuro-cranial nerves II through XII intact, motor and sensory function within normal limits, strength symmetrical with generalized weakness, no focal deficits Psych-normal affect, normal mood Results & Data Results & Data Vital Signs (Past 12 Hours) Vital Signs Temp Pulse Resp BP Pulse Ox O2 Del Method 01/09/25 11:29 83 18 96 Room Air 01/09/25 11:25 Room Air 01/09/25 07:31 36.6 C 71 16 126/76 93 Room Air Laboratory Results 01/07/25 07:21 01/07/25 07:21 PG Care Time/CCT Total # of Minutes Spent Total Time Spent with Patient: Total time spent is greater than 50% in coordination of care (as documented) at patient's floor/unit and/or counseling patient: Coding Level of Care Code 54205 SUB INP/OBS CARE 2/35MIN Diagnoses Primary cancer of ovary with widespread metastatic disease C56.9; C80.0 Asthma exacerbation J45.901 Bilateral edema of lower extremity R60.0 Pleural effusion J90 Elevated troponin R79.89 Type 2 diabetes mellitus E11.9 Primary hypertension I10 Hypertension type: primary hypertension Stage III chronic kidney disease N18.3 (7) Hypertension Hypertension type: primary hypertension Qualified Code(s): I10 - Essential (primary) hypertension
[2025-01-10 06:06] VITALS: O2SAT 94
[2025-01-10 07:56] VITALS: BP 104/68; PULSE 78; RESP 16; TEMP 97.3
--- NOTE | 2025-01-10 09:27 | Discharge Summary ---
Discharge Summary Date of Service January 10, 2025 Principal Dx & Hospital Course #1 = Principal Diagnosis (1) Primary cancer of ovary with widespread metastatic disease: the patient has ovarian cancer with carcinomatosis causing the development of malignant ascites and the pleural effusions. She has undergone thoracentesis on admission and paracentesis now twice this admission. She has been seen by oncology and will start chemotherapy soon as an outpatient. Pathology reveals adenocarcinoma of probable ovarian origin. (2) Asthma exacerbation: Due to development of pleural effusions from the intra-abdominal carcinomatosis. She has undergone thoracentesis and paracentesis and her respiratory status stabilized. She is presently on room air. (3) Bilateral edema of lower extremity: due to ovarian malignancy with intra-abdominal carcinomatosis. Supportive care. No response to parenteral Lasix trial. (4) Pleural effusion: Due to stage IV ovarian carcinoma. She underwent thoracentesis this admission. Supportive care. (5) Elevated troponin: No chest pain. No evidence of acute coronary syndrome. Appears to be supply demand mismatch. (6) Type 2 diabetes mellitus: ADA diet. Sliding scale coverage as needed. Basal insulin therapy was down titrated on January 08 and glucose is now acceptable. (7) Hypertension: amlodipine was recently stopped as an outpatient in the setting of LE edema but had little effect. Blood pressure controlled at present (8) Stage III chronic kidney disease: Monitor intake and output. Serial labs. Stable Plan [facility] today, January 10. She will start outpatient chemotherapy as soon as possible. Admission HPI Per Admitting Provider 69 year old female with a past medical history of HFpEF, DM2, HTN, HLD, asthma, hypothyroidism, depression/anxiety, CKD Stage III, history of tobacco use presenting with increased LE edema and wheezing. Was recently admitted for similar symptoms and d/c on 12/26. Follows with allergy/immunology for asthma and nephrology for CKD. Amlodipine was recently held thinking this could be contributing factor to LE edema. Lasix was increased from 20mg daily to 40mg. Over the past week has noticed increased LE edema and wheezing-> started on prednisone taper per director banking and completed 40mg x 4 days with minimal improvement in symptoms. Notes cough x 3 days, but otherwise denies URI symptoms- fever/chills, congestion, sinus pressure. Denies dyspnea, chest pain, pleuritic pain. States that the increased edema is making it difficult to get a round her house. ED Course Significant for: Hgb= 11.1, Platelets= 707, INR= 2.4, creatinine= 1.37, troponin 80.5-> 77.2. BNP= 220. EKG with nonspecific ST changes-> ?T wave inversions in anterolateral leads. CXR with small left pleural effusion. S/p Duoneb, 40mg IV lasix Discharge Exam General-alert and oriented x3, no fever, no chills HEENT-head atraumatic and normocephalic, pupils equal and reactive to light, extraocular muscles intact Neck-no lymphadenopathy or thyromegaly, trachea midline Chest-clear to auscultation. No rales, wheezing or rhonchi Cardiac-regular rate and rhythm, normal S1 and S2 Abdomen-normal bowel sounds, no hepatosplenomegaly. Slightly distended Extremities-no cyanosis, clubbing, or edema Neuro-cranial nerves II through XII intact, motor and sensory function within normal limits, strength symmetrical with generalized weakness, no focal deficits Psych-normal affect, normal mood Discharge Plan Discharge Items Patient Disposition: Transfer Longterm Fac Reason For Visit: [facility] Discharge Diagnosis: Ovarian carcinoma with carcinomatosis, malignant ascites, malignant pleural effusions Activity: Resume your previous activity Non-emergency contact: Primary Care Provider and Oncologist Call non-emergency contact if: your symptoms worsen Follow-up/Referrals: Davy Lyons [Primary Care Provider] - Diet: Carb Consistent or DM2 Addtl Attending Provider Instructions: Follow-up with oncologist as soon as possible to start chemotherapy Pending Studies at Discharge: No Stand-Alone Forms: My [facility] Skilled Items Patient informed of condition?: Yes DNR: No Discharge Level of Care: Skilled Communicable Disease: No Discharge Prognosis: Stable Lines: None Urinary Catheter: No Medications and DC Order Prescriptions: Continued montelukast [Singulair] 10 mg tablet 10 mg PO DAILY Qty: 30 11RF fenofibrate micronized 200 mg capsule 200 mg PO DAILY multivitamin tablet 1 tab PO DAILY Rx Instructions: Unable to verify OTC meds at this date/time simvastatin 20 mg tablet 20 mg PO DAILY Qty: 90 albuterol sulfate 2.5 mg /3 mL (0.083 %) solution for nebulization 2.5 mg inhalation Q4H PRN (Reason: shortness of breath or wheezing) Qty: 180 6RF levothyroxine 50 mcg tablet 50 mcg PO DAILY albuterol sulfate 0.63 mg/3 mL solution for nebulization 0.63 mg continuous nebulization Q4H PRN (Reason: shortness of breath or wheezing) Qty: 90 1RF benzonatate 100 mg capsule 100 mg PO TID PRN (Reason: cough) Qty: 30 1RF furosemide 20 mg tablet 20 mg PO DAILY clonazepam 0.5 mg tablet 0.5 mg PO BID PRN (Reason: Anxiety) tiotropium bromide 18 mcg capsule, w/inhalation device 18 mcg inhalation UD Rx Instructions: Last filled 10/2024 x30 day supply. Original Directions: 18mcg inh daily Combivent Respimat 20-100 mcg/actuation mist 1 puff inhalation UD MDD 6PUFFS/24H Rx Instructions: Last filled 10/2024 x30 day supply. Original Directions: 1 puff every 4 hours Tezspire 210 mg/1.91 mL (110 mg/mL) pen injector 210 mg subcut UD Rx Instructions: INJECT 210 MG SUBCUTANEOUSLY EVERY 4 WEEKS insulin lispro [Humalog KwikPen Insulin] 100 unit/mL insulin pen 8 unit SUBCUT ACHS Rx Instructions: Last filled 10/2024 x60 day supply. insulin glargine [Lantus Solostar U-100 Insulin] 100 unit/mL (3 mL) insulin pen 20 unit SUBCUT UD Rx Instructions: Last filled 08/2024 x75 day supply. Original Directions: 20units subcut every evening Rexulti 3 mg tablet 3 mg PO DAILY fluoxetine 40 mg capsule 80 mg PO DAILY ipratropium bromide 0.02 % solution 2.5 ml inhalation QID PRN (Reason: SOB/Wheezing) prednisone 10 mg tablet See Rx Instructions .ROUTE .COMPLEX Rx Instructions: Start Date 12/28/24: 40 mg PO daily for 5 days; 30 mg daily for 2 days; 20 mg daily for 2 days, 10 mg daily for 2 days ergocalciferol (vitamin D2) 1,250 mcg (50,000 unit) capsule 1,250 mcg PO 2XWK Rx Instructions: 1,250 mcg PO twice weekly Discharge Orders: Discharge Order (Routine); Ordered 01/10/25 Ordered By: Phillip Mccloud Admission Data Admit Date/Time: 01/01/25 18:46 Attending Provider: Phillip Mccloud Admit Provider: Dione Marroquin Primary Care Provider: Davy Lyons Other Providers: Cam Campbell; Rogelio Owen [facility]; [facility] Hospital Stay Data Consultations 01/02/25 10:28 Consult Cardiology Routine Consult Hematology Routine Diagnostic Imagining Performed 01/02/25 10:27 US venous doppler LE BI Stat 01/02/25 10:34 CT angio chest PE protocol Stat 01/02/25 13:25 CT abd pelvis IV con only Urgent 01/03/25 13:30 IR paracentesis abd w/img US Routine 01/03/25 14:01 IR thoracentesis wo tube US Routine 01/07/25 07:00 IR paracentesis abd w/img US Routine Pending Results Patient Have Any Pending Studies at Discharge: No Discharge Instructions Given to Patient (Per Discharging Provider) Follow-up with oncologist as soon as possible to start chemotherapy Total Time Total Time Spent Total Time Spent (In Minutes): 45 minutes Coding Level of Care Code 09356 INP/OBS DISCH >30 MIN Diagnoses Primary cancer of ovary with widespread metastatic disease C56.9; C80.0 Asthma exacerbation J45.901 Bilateral edema of lower extremity R60.0 Pleural effusion J90 Elevated troponin R79.89 Type 2 diabetes mellitus E11.9 Primary hypertension I10 Hypertension type: primary hypertension Stage III chronic kidney disease N18.3
--- NOTE | 2025-01-15 14:40 | Billing Data ---
Date of Service January 01, 2025 Coding Level of Care Code 80787 INT INP/OBS CARE
== END 2025-01-10 11:10 | DRG 754 ==
LOC: ED 13:10 → EDINP 18:46 → SUATTDRO 18:46 → 2N 20:21 → 3W 01-06 10:36
DX: E11.65 Type 2 diabetes mellitus with hyperglycemia; E11.22 Type 2 diabetes mellitus with diabetic chronic kidney disease; I13.0 Hypertensive heart and chronic kidney disease with heart failure and stage 1 through stage 4 chronic kidney disease, or unspecified chronic kidney disease; D63.1 Anemia in chronic kidney disease; E03.9 Hypothyroidism, unspecified; D63.0 Anemia in neoplastic disease; J45.51 Severe persistent asthma with (acute) exacerbation; Z88.8 Allergy status to other drugs, medicaments and biological substances; I24.89 Other forms of acute ischemic heart disease; I50.33 Acute on chronic diastolic (congestive) heart failure; C78.6 Secondary malignant neoplasm of retroperitoneum and peritoneum; J91.0 Malignant pleural effusion; N18.30 Chronic kidney disease, stage 3 unspecified; R79.1 Abnormal coagulation profile; J44.9 Chronic obstructive pulmonary disease, unspecified; E61.9 Deficiency of nutrient element, unspecified; Z98.84 Bariatric surgery status; C56.9 Malignant neoplasm of unspecified ovary; Z79.4 Long term (current) use of insulin; Z88.6 Allergy status to analgesic agent; Z79.620 Long term (current) use of immunosuppressive biologic; E78.5 Hyperlipidemia, unspecified; K59.00 Constipation, unspecified; R18.0 Malignant ascites; Z79.899 Other long term (current) drug therapy; Z79.890 Hormone replacement therapy; F41.9 Anxiety disorder, unspecified; D75.839 Thrombocytosis, unspecified; Z91.010 Allergy to peanuts; Z91.018 Allergy to other foods; F32.A Depression, unspecified; Z87.891 Personal history of nicotine dependence

== ENCOUNTER 2025-01-21 12:55 | Inpatient (IN) ==
--- NOTE | 2025-01-21 13:22 | Emergency Department Note ---
Impression & Plan Peritoneal carcinomatosis, Primary cancer of ovary with widespread metastatic disease, Elevated troponin, Bilateral edema of lower extremity, Pleural effusion, Ascites, Vascular occlusion, Hypoalbuminemia, Transaminitis ED Provider Note NAME: STEPHANIE DELGADO AGE: 69 SEX: F : 1955 ARRIVES VIA: Ambulance INFORMANT: Patient ED PROVIDER(S): Sohail Flood MD CHIEF COMPLAINT: Shortness of breath, metastatic cancer PLAN: Disposition: Admit MEDICAL DECISION MAKING: The patient is a pleasant 69-year-old woman with a past medical history of recent diagnosis of primary ovarian cancer with widespread metastases including peritoneal carcinomatosis, hypertension, asthma, diabetes, hypothyroidism who presents to the emergency department via EMS for evaluation of worsening shortness of breath in setting of her carcinomatosis and recent admission to this facility from 01/01-01/10 where the patient had received thoracentesis and paracentesis. Patient reports feeling increasingly short of breath with cough congestion and sputum production which is how she presented on her admission to this facility last month and was concerned that she would need repeat thoracentesis and paracentesis. She recently started chemotherapy through the cancer center with her first treatment a week ago. She denies chest pain, nausea, vomiting or diarrhea. Denies any urinary symptoms. She also reports pain with numbness and tingling of her right lower extremity where she is equivocal about the onset but feels it was present to a degree even when she was admitted to this facility. Of note, the patient did arrive to emergency department during time of high volume, acuity and prolonged emergency department waiting times. Critical pathways initiated from triage. On evaluation the patient is chronically ill-appearing but no distress, afebrile with stable vital signs with heart rate in the 100s and O2 saturation 95% on room air with normal respiratory effort. She appears hypervolemic with anasarca and 2+ bilateral lower extremity pitting edema with diminished breath sounds of bilateral bases though clear apically with normal respiratory effort. Patient's right foot is cool with delayed capillary refill. Unable to obtain pedal pulses with Doppler. Popliteal Doppler pulse is detectable and monophasic on examination. Biphasic left foot pedal pulses are present with Doppler. EKG without overt acute ischemia. Chest x-ray with improved pleural effusions compared to prior. WBC 11K with neutrophilia but no left shift. H/H within normal limits. Platelets than normal limits. Lactate 2.1 with chemistry without metabolic acidosis. BUN is 49 with creatinine of 1.07. LFTs are increased from prior with AST and ALT 245 and 145, respectively. Alk phos 339. Total bilirubin wnl. HS troponin 174, increased from prior, nonspecific. Procalcitonin 0.61, mildly elevated. TSH 4.6 with free T4 wnl. UA without convincing evidence of infection. Respiratory Biofire negative. Patient's presentation was reviewed with Dr. Askew, hematology/oncology. Agrees with plan for CT imaging and admission. CTA of the chest was performed was negative for PE. Bilateral pleural effusions are again seen with bibasilar consolidation. CTA of the abdominal aorta with bilateral runoff was performed. Right common iliac demonstrates significant stenotic mural thrombus more than 75% though with CTA showing good distal runoff. Additionally characterized on subsequent arterial duplex. Otherwise, bilateral complex adnexal cysts/masses are again seen with the largest anterior to the spleen measuring 10 x 5.5 cm is unchanged. Dilated intra and extrahepatic biliary channels are described with CBD measuring 12 mm however in the setting of being status cholecystectomy. Total bilirubin and lipase are normal. Given bibasilar consolidation on CT imaging and elevated pro Calcitonin blood cultures were obtained and empiric IV Zosyn initiated. Case was discussed with vascular surgery, Dr. Grimes. Patient may be admitted to our facility. Agrees with initiation of heparin at this time. Dr. Askew updated. Appreciate consultations and recommendations. Case was discussed with Dr. Gallegos, [facility] hospitalist, who will evaluate the patient for admission. Further management per admitting team. Triage Nursing notes reviewed and agree them. Prior/external medical records reviewed Vital Signs: reviewed Differential diagnosis: Reactive airway disease, pneumonia, pneumothorax, COPD, CHF, infections, cardiac ischemia, pulmonary embolism, musculoskeletal, gastrointestinal, as well as other pathologies. ER treatment provided: See below. Diagnostics interpreted by me: ECG: Sinus tachycardia, 101 bpm, LVH without overt ST elevation or depression, QTc 469, QRS 94 Cardiac Monitoring: An order for continuous cardiac monitoring was placed and demonstrated Sinus tachycardia, 101 bpm, no ectopy. Laboratory studies: See below Imaging studies: See below Consultation(s): Dr. Askew, Hematology/oncology Dr. Grimes, Vascular surgery. HPI: The patient is a pleasant 69-year-old woman with a past medical history of recent diagnosis of primary ovarian cancer with widespread metastases including peritoneal carcinomatosis, hypertension, asthma, diabetes, hypothyroidism who presents to the emergency department via EMS for evaluation of worsening shortness of breath in setting of her carcinomatosis and recent admission to this facility from 01/01-01/10 where the patient had received thoracentesis and paracentesis. Patient reports feeling increasingly short of breath with cough congestion and sputum production which is how she presented on her admission to this facility last month and was concerned that she would need repeat thoracentesis and paracentesis. She recently started chemotherapy through the cancer center with her first treatment a week ago. She denies chest pain, nausea, vomiting or diarrhea. Denies any urinary symptoms. She also reports pain with numbness and tingling of her right lower extremity where she is equivocal about the onset but feels it was present to a degree even when she was admitted to this facility. ROS: See above HPI for pertinent positives & negatives. A total of 10 systems reviewed and were otherwise negative. VITALS:See Below PHYSICAL EXAMINATION: GENERAL: Awake, alert, chronically ill-appearing, in no distress, BMI 42.7. HENT: Normocephalic, atraumatic. Oropharynx with dry mucous membranes and otherwise unremarkable. EYES: Normal conjunctiva. Sclera non-icteric. NECK: Supple. No nuchal rigidity. FROM. No JVD. RESPIRATORY: Diminished breath sounds of bilateral lung bases though clear apically with normal respiratory effort. CARDIAC: Regular rate, normal rhythm. Extremities warm and well perfused. Pulses equal. ABDOMEN: Anasarca. Abdomen with mild distention but is soft/not tense. No discrete tenderness to palpation. No guarding or rebound. MUSCULOSKELETAL: Chest examination reveals no tenderness. The back is symmetrical on inspection without obvious abnormality. There is no CVA tenderness to palpation. LOWER EXTREMITIES: 2+ bilateral lower extremity pitting edema. Right foot is cool with delayed capillary refill. Unable to obtain pedal pulses with Doppler. Popliteal Doppler pulse is detectable and monophasic on examination. Biphasic left foot pedal pulses are present with Doppler. NEURO: Normal sensorium. No sensory or motor deficits noted. SKIN: No rash or jaundice noted. ED COURSE: Critical Care: I have personally spent greater than 45 minutes of critical care time in the direct management of this patient. This includes bedside care, interpretation of diagnostic studies, and testing, discussion with consultants, patient, and family members, and other required patient management activities. This 45 minutes is in excess of all separately billable procedures. Sohail Flood MD Past Med/Surg History Problem List (Updated 01/22/25 @ 07:33 by Sohail Flood MD) Transaminitis (Acute) Hypoalbuminemia (Acute) Vascular occlusion (Acute) Peritoneal carcinomatosis (Acute) Primary cancer of ovary with widespread metastatic disease (Acute) Ascites (Acute) Elevated troponin (Acute) Pleural effusion (Acute) Thrombocytosis Bilateral edema of lower extremity (Acute) Asthma exacerbation (Acute) Elevated troponin (Acute) Chest pain (Acute) Dyspnea (Acute) Status post gastric bypass for obesity Allergic rhinitis due to dust mite (Chronic) Allergic rhinitis due to animal hair and dander (Chronic) Peripheral neuropathy Seasonal allergies Medical History Hypertension Hypothyroidism COPD (chronic obstructive pulmonary disease) Mild tricuspid regurgitation Mild mitral regurgitation Severe persistent asthma Type 2 diabetes mellitus Anemia Dyslipidemia Non-proliferative diabetic retinopathy Stage III chronic kidney disease Venous insufficiency Family History Mother Hypertension Diabetes Father Diabetes Denies family history of Kidney disease Social History Smoking Status: Unknown if ever smoked Tobacco Type: Cigarettes Age Started Using Tobacco: 21; Age Quit Using Tobacco: 63; packs per day: 2; Do You Dip or Chew Tobacco: No; Hx Alcohol Use: No Hx Substance Use: No Preferred Language: German Communication Ability: Effective Visual Impairment: No Limitations Hearing Ability: Normal Hop Weigher Required: Yes Beliefs That Will Affect Care: None marital status: Current Living Situation: Alone current occupational status: disabled How many Children do You have: 0 Feels Safe at Home: Yes Diet: regular caffeine: Yes (2 coffees daily) Dental Care, Regularly: No Physical Activity Frequency: Does not Exercise Seatbelt Use: always Sunscreen Use: No Do you think of yourself as: straight/heterosexual Gender Identity: Female Assistive Devices: Walker Allergies Allergies Allergy/AdvReac Type Severity Reaction Status Date / Time metformin Allergy Severe Verified 01/01/25 18:29 cashew nut Allergy Verified 01/04/25 12:54 hazelnut Allergy Verified 01/04/25 12:54 nut - unspecified Allergy Verified 01/04/25 12:54 peanut Allergy Verified 01/04/25 12:54 peanut oil Allergy Verified 01/04/25 12:54 pecan nut Allergy Verified 01/04/25 12:54 aspirin AdvReac Difficulty Verified 01/01/25 18:29 Breathing Home Meds Home Medications Medication Instructions Recorded Confirmed fenofibrate micronized 200 mg 200 mg PO QPM 06/19/19 01/21/25 capsule multivitamin 1 tab PO QAM 06/19/19 01/21/25 simvastatin 20 mg tablet 20 mg PO QAM #90 tabs 07/10/20 01/21/25 levothyroxine 50 mcg tablet 50 mcg PO DAILY 12/05/24 01/21/25 furosemide 20 mg tablet 20 mg PO QAM 12/20/24 01/21/25 clonazepam 0.5 mg tablet 0.5 mg PO BID 12/25/24 01/21/25 insulin glargine 100 unit/mL (3 16 unit subcut QAM 12/25/24 01/21/25 mL) subcutaneous pen (Lantus Solostar U-100 Insulin) insulin lispro 100 unit/mL 4 unit subcut WM 12/25/24 01/21/25 subcutaneous pen (Humalog KwikPen (U-100) Insulin) ipratropium 20 mcg-albuterol 100 1 puff inhalation QID 12/25/24 01/21/25 mcg/actuation mist for inhalation (Combivent Respimat) tezepelumab-ekko 210 mg/1.91 mL 210 mg subcut UD 12/25/24 01/21/25 (110 mg/mL) subcutaneous pen injector (Tezspire) tiotropium bromide 18 mcg capsule 18 mcg inhalation QAM 12/25/24 01/21/25 with inhalation device brexpiprazole 3 mg tablet (Rexulti) 3 mg PO QPM 01/01/25 01/21/25 fluoxetine 40 mg capsule 80 mg PO DAILY 01/01/25 01/21/25 acetaminophen 325 mg tablet 650 mg PO Q4 PRN Fever Or Pain 01/21/25 01/21/25 budesonide 180 mcg/actuation 1 inh inhalation BID 01/21/25 01/21/25 breath activated powder inhaler (Pulmicort Flexhaler) cholecalciferol (vitamin D3) 25 25 mcg PO QAM 01/21/25 01/21/25 mcg (1,000 unit) capsule (Vitamin D3) ipratropium 0.5 mg-albuterol 3 mg 3 ml inhalation QID 01/21/25 01/21/25 (2.5 mg base)/3 mL nebulization soln loperamide 2 mg tablet (Imodium 2 mg PO Q6H PRN Diarrhea 01/21/25 01/21/25 A-D) montelukast 10 mg tablet 10 mg PO HS 01/21/25 01/21/25 (Singulair) nystatin 100,000 unit/gram topical 1 applic topical UD 01/21/25 01/21/25 powder olanzapine 2.5 mg tablet 2.5 mg PO HS 01/21/25 01/21/25 ondansetron 8 mg disintegrating 8 mg PO Q8H PRN N/V 01/21/25 01/21/25 tablet prochlorperazine maleate 10 mg 10 mg PO Q6H PRN N/V 01/21/25 01/21/25 tablet Previous Rx's Medication Instructions Recorded albuterol sulfate 0.63 mg/3 mL 0.63 mg (3 mL) continuous 12/05/24 solution for nebulization nebulization Q4H PRN shortness of breath or wheezing #90 mL benzonatate 100 mg capsule 100 mg PO TID PRN cough #30 caps 12/13/24 Results & Data (ED) Vital Signs Vital Signs - 24 hr 01/21/25 13:08 01/21/25 13:08 01/21/25 13:54 Temperature 36.9 C Temperature Source Oral Pulse Rate 100 H 98 H Pulse Rate [Apical] Pulse Rate from SpO2 Sensor Pulse Rhythm Respiratory Rate 22 Respiratory Effort / Characteristics Non-Labored Spontaneous Respiratory Depth Normal Blood Pressure 106/61 Blood Pressure [Left Arm] Blood Pressure Mean 76 Blood Pressure Mean [Left Arm] Blood Pressure Position [Left Arm] Pulse Oximetry 96 96 Oxygen Delivery Method Room Air Room Air Sepsis Recent Fever Within 48 Hours No Sepsis New/Unexplained Change in Mental Status N/A Sepsis Action Taken by Nursing No Action Required 01/21/25 14:05 01/21/25 14:51 01/21/25 15:54 Temperature Temperature Source Pulse Rate 98 H 99 H 103 H Pulse Rate [Apical] Pulse Rate from SpO2 Sensor 102 H 103 H Pulse Rhythm Regular Respiratory Rate 22 18 19 Respiratory Effort / Characteristics Respiratory Depth Blood Pressure 111/70 114/80 Blood Pressure [Left Arm] Blood Pressure Mean 83 91 Blood Pressure Mean [Left Arm] Blood Pressure Position [Left Arm] Pulse Oximetry 97 94 95 Oxygen Delivery Method Room Air Sepsis Recent Fever Within 48 Hours Sepsis New/Unexplained Change in Mental Status Sepsis Action Taken by Nursing 01/21/25 17:00 01/21/25 18:01 01/21/25 19:00 Temperature Temperature Source Pulse Rate 102 H 98 H 101 H Pulse Rate [Apical] Pulse Rate from SpO2 Sensor 94 H 97 H 102 H Pulse Rhythm Respiratory Rate 26 H 19 19 Respiratory Effort / Characteristics Respiratory Depth Blood Pressure 113/69 134/75 99/60 L Blood Pressure [Left Arm] Blood Pressure Mean 99 100 74 Blood Pressure Mean [Left Arm] Blood Pressure Position [Left Arm] Pulse Oximetry 97 95 97 Oxygen Delivery Method Sepsis Recent Fever Within 48 Hours Sepsis New/Unexplained Change in Mental Status Sepsis Action Taken by Nursing 01/21/25 20:21 01/21/25 20:21 01/21/25 20:21 Temperature Temperature Source Pulse Rate Pulse Rate [Apical] Pulse Rate from SpO2 Sensor Pulse Rhythm Respiratory Rate Respiratory Effort / Characteristics Respiratory Depth Blood Pressure 124/69 124/69 124/69 Blood Pressure [Left Arm] Blood Pressure Mean 89 89 89 Blood Pressure Mean [Left Arm] Blood Pressure Position [Left Arm] Pulse Oximetry Oxygen Delivery Method Sepsis Recent Fever Within 48 Hours Sepsis New/Unexplained Change in Mental Status Sepsis Action Taken by Nursing 01/21/25 20:21 01/21/25 20:26 01/21/25 20:30 Temperature Temperature Source Pulse Rate 98 H Pulse Rate [Apical] Pulse Rate from SpO2 Sensor Pulse Rhythm Respiratory Rate 12 Respiratory Effort / Characteristics Non-Labored Respiratory Depth Normal Blood Pressure 105/70 Blood Pressure [Left Arm] Blood Pressure Mean 91 Blood Pressure Mean [Left Arm] Blood Pressure Position [Left Arm] Pulse Oximetry Oxygen Delivery Method Sepsis Recent Fever Within 48 Hours Sepsis New/Unexplained Change in Mental Status Sepsis Action Taken by Nursing 01/21/25 20:30 01/21/25 20:33 01/21/25 20:45 Temperature Temperature Source Pulse Rate 98 H 97 H Pulse Rate [Apical] Pulse Rate from SpO2 Sensor 99 H 97 H Pulse Rhythm Respiratory Rate 21 18 Respiratory Effort / Characteristics Respiratory Depth Blood Pressure 105/70 Blood Pressure [Left Arm] Blood Pressure Mean 91 Blood Pressure Mean [Left Arm] Blood Pressure Position [Left Arm] Pulse Oximetry 93 95 Oxygen Delivery Method Sepsis Recent Fever Within 48 Hours Sepsis New/Unexplained Change in Mental Status Sepsis Action Taken by Nursing 01/21/25 20:48 01/21/25 21:00 01/21/25 21:00 Temperature Temperature Source Pulse Rate 97 H Pulse Rate [Apical] Pulse Rate from SpO2 Sensor 97 H Pulse Rhythm Respiratory Rate 18 Respiratory Effort / Characteristics Respiratory Depth Blood Pressure 116/72 116/72 Blood Pressure [Left Arm] Blood Pressure Mean 93 93 Blood Pressure Mean [Left Arm] Blood Pressure Position [Left Arm] Pulse Oximetry 96 Oxygen Delivery Method Sepsis Recent Fever Within 48 Hours Sepsis New/Unexplained Change in Mental Status Sepsis Action Taken by Nursing 01/21/25 21:00 01/21/25 21:03 01/21/25 21:27 Temperature Temperature Source Pulse Rate 97 H 98 H Pulse Rate [Apical] Pulse Rate from SpO2 Sensor 98 H 98 H Pulse Rhythm Respiratory Rate 26 H 21 Respiratory Effort / Characteristics Respiratory Depth Blood Pressure 116/72 Blood Pressure [Left Arm] Blood Pressure Mean 93 Blood Pressure Mean [Left Arm] Blood Pressure Position [Left Arm] Pulse Oximetry 95 96 Oxygen Delivery Method Sepsis Recent Fever Within 48 Hours Sepsis New/Unexplained Change in Mental Status Sepsis Action Taken by Nursing 01/21/25 22:15 01/21/25 23:26 Temperature Temperature Source Pulse Rate 109 H Pulse Rate [Apical] 93 H Pulse Rate from SpO2 Sensor Pulse Rhythm Respiratory Rate 22 Respiratory Effort / Characteristics Respiratory Depth Blood Pressure Blood Pressure [Left Arm] 100/63 Blood Pressure Mean Blood Pressure Mean [Left Arm] 75 Blood Pressure Position [Left Arm] Semi-fowlers Pulse Oximetry 97 Oxygen Delivery Method Room Air Sepsis Recent Fever Within 48 Hours Sepsis New/Unexplained Change in Mental Status Sepsis Action Taken by Nursing Laboratory Data Attestation: I reviewed the patient's lab results. 01/21/25 15:00 01/21/25 15:00 Lab Results 01/21/25 01/21/25 01/21/25 Range/Units 14:00 15:00 18:16 WBC 11.17 H (4.8-10.8) K/ul RBC 4.48 (4.20-5.40) M/uL Hgb 12.3 (12.0-16.0) g/dl Hct 38.7 (37.0-47.0) % MCV 86.4 (80.0-100.0) fL MCH 27.5 (25.0-34.0) pg MCHC 31.8 L (32.0-36.0) g/dL RDW Std Deviation 54.9 H (36.4-46.3) fL RDW Coeff of Sol 17.4 H (11.5-14.5) % Plt Count 310 (130-400) K/uL MPV 10.0 (9.4-12.4) fL Immature Gran % (Auto) 0.4 % Neut % (Auto) 94.8 % Lymph % (Auto) 3.9 % [place] % (Auto) 0.7 % Eos % (Auto) 0.2 % Baso % (Auto) 0.0 % Neut # (Auto) 10.58 H (1.40-6.50) K/uL Lymph # (Auto) 0.44 L (1.20-3.40) K/uL [place] # (Auto) 0.08 L (0.11-0.59) K/uL Eos # (Auto) 0.02 (0.00-0.50) K/uL Baso # (Auto) 0.00 (0.00-0.20) K/uL Immature Gran # (Auto) 0.05 (0.01-0.20) K/uL Absolute Nucleated RBC 0.02 (0.00-0.12) K/uL Nucleated RBC % (auto) 0.2 % Toxic Vacuolation 1+ Target Cells 1+ PT 14.6 H (9.0-12.0) Seconds INR 1.4 H (0.9-1.1) APTT 31 (21-31) Seconds PTT Ratio 1.2 Sodium 137 (136-145) mmol/L Potassium 3.8 (3.5-5.1) mmol/L Chloride 102 (98-107) mmol/L Carbon Dioxide 34 H (21-32) mmol/L Anion Gap 1 L (3-11) BUN 49 H (6-23) mg/dl Creatinine 1.07 (0.6-1.2) mg/dl Est Cr Clr Drug Dosing 47.5 ml/min eGFR 56.93 BUN/Creatinine Ratio 45.8 H (10-20) Glucose 87 (70-99(Fasting)) mg/dl POC Glucose 61 L* (70-99) mg/dl Lactate (0.4-2.0) mmol/L Calcium 8.3 L (8.6-10.3) mg/dl Phosphorus 3.1 (2.5-4.9) mg/dl Magnesium 2.1 (1.7-2.4) mg/dl Total Bilirubin 1.0 (0.2-1.0) mg/dl AST 245 H (13-39) U/L ALT 145 H (7-52) U/L Alkaline Phosphatase 339 H (34-104) U/L Troponin I High Sens 174.8 H* (0-14) pg/ml B-Natriuretic Peptide 243 H (0-100) pg/ml Total Protein 5.3 L (6.0-8.3) gm/dl Albumin 2.6 L (3.4-5.0) gm/dl Globulin 2.7 (2.5-4.0) gm/dl Albumin/Globulin Ratio 1.0 (0.9-2) Lipase 11 (11-82) U/L Procalcitonin 0.61 H (0-0.5) ng/ml TSH 4.667 H (0.300-4.500) uIu/ml Free T4 1.05 (0.61-1.60) ng/dl Urine Color Urine Appearance (Clear) Urine pH (4.5-7.5) Ur Specific [place] (1.000-1.030) Urine Protein (Negative) Urine Glucose (UA) (Negative) Urine Ketones (Negative) Urine Blood (Negative) Urine Nitrite (Negative) Urine Bilirubin (Negative) Urine Urobilinogen (Negative) Ur Leukocyte Esterase (Negative) Urine WBC (Auto) (0-5) /hpf Urine RBC (Auto) (0-2) /hpf U Hyaline Cast (Auto) (0-2) /lpf U Epithel Cells (Auto) (0-2) /hpf Urine Bacteria (Auto) (None Seen) Adenovirus (PCR) Not Detected (NotDetected) B. pertussis DNA (PCR) Not Detected (NotDetected) B.parapertussis DNA PCR Not Detected (NotDetected) C. pneumoniae DNA (PCR) Not Detected (NotDetected) Coronavirus OC43 (PCR) Not Detected (NotDetected) Coronavirus HKU1 (PCR) Not Detected (NotDetected) Coronavirus 229E (PCR) Not Detected (NotDetected) SARS-CoV-2 (PCR) Not Detected (NotDetected) Coronavirus NL63 (PCR) Not Detected (NotDetected) Human Metapneumovir PCR Not Detected (NotDetected) Influenza Type A (PCR) Not Detected (NotDetected) Influenza Type B (PCR) Not Detected (NotDetected) M. pneumoniae (PCR) Not Detected (NotDetected) Parainfluenza 1 (PCR) Not Detected (NotDetected) Parainfluenza 2 (PCR) Not Detected (NotDetected) Parainfluenza 3 (PCR) Not Detected (NotDetected) Parainfluenza 4 (PCR) Not Detected (NotDetected) RSV (PCR) Not Detected (NotDetected) Entero/Rhino (PCR) Not Detected (NotDetected) 01/21/25 01/21/25 01/21/25 Range/Units 18:44 18:45 19:00 WBC (4.8-10.8) K/ul RBC (4.20-5.40) M/uL Hgb (12.0-16.0) g/dl Hct (37.0-47.0) % MCV (80.0-100.0) fL MCH (25.0-34.0) pg MCHC (32.0-36.0) g/dL RDW Std Deviation (36.4-46.3) fL RDW Coeff of Sol (11.5-14.5) % Plt Count (130-400) K/uL MPV (9.4-12.4) fL Immature Gran % (Auto) % Neut % (Auto) % Lymph % (Auto) % [place] % (Auto) % Eos % (Auto) % Baso % (Auto) % Neut # (Auto) (1.40-6.50) K/uL Lymph # (Auto) (1.20-3.40) K/uL [place] # (Auto) (0.11-0.59) K/uL Eos # (Auto) (0.00-0.50) K/uL Baso # (Auto) (0.00-0.20) K/uL Immature Gran # (Auto) (0.01-0.20) K/uL Absolute Nucleated RBC (0.00-0.12) K/uL Nucleated RBC % (auto) % Toxic Vacuolation Target Cells PT (9.0-12.0) Seconds INR (0.9-1.1) APTT (21-31) Seconds PTT Ratio Sodium (136-145) mmol/L Potassium (3.5-5.1) mmol/L Chloride (98-107) mmol/L Carbon Dioxide (21-32) mmol/L Anion Gap (3-11) BUN (6-23) mg/dl Creatinine (0.6-1.2) mg/dl Est Cr Clr Drug Dosing ml/min eGFR BUN/Creatinine Ratio (10-20) Glucose (70-99(Fasting)) mg/dl POC Glucose 65 L* 66 L* (70-99) mg/dl Lactate (0.4-2.0) mmol/L Calcium (8.6-10.3) mg/dl Phosphorus (2.5-4.9) mg/dl Magnesium (1.7-2.4) mg/dl Total Bilirubin (0.2-1.0) mg/dl AST (13-39) U/L ALT (7-52) U/L Alkaline Phosphatase (34-104) U/L Troponin I High Sens 229.6 H* D (0-14) pg/ml B-Natriuretic Peptide (0-100) pg/ml Total Protein (6.0-8.3) gm/dl Albumin (3.4-5.0) gm/dl Globulin (2.5-4.0) gm/dl Albumin/Globulin Ratio (0.9-2) Lipase (11-82) U/L Procalcitonin (0-0.5) ng/ml TSH (0.300-4.500) uIu/ml Free T4 (0.61-1.60) ng/dl Urine Color Urine Appearance (Clear) Urine pH (4.5-7.5) Ur Specific [place] (1.000-1.030) Urine Protein (Negative) Urine Glucose (UA) (Negative) Urine Ketones (Negative) Urine Blood (Negative) Urine Nitrite (Negative) Urine Bilirubin (Negative) Urine Urobilinogen (Negative) Ur Leukocyte Esterase (Negative) Urine WBC (Auto) (0-5) /hpf Urine RBC (Auto) (0-2) /hpf U Hyaline Cast (Auto) (0-2) /lpf U Epithel Cells (Auto) (0-2) /hpf Urine Bacteria (Auto) (None Seen) Adenovirus (PCR) (NotDetected) B. pertussis DNA (PCR) (NotDetected) B.parapertussis DNA PCR (NotDetected) C. pneumoniae DNA (PCR) (NotDetected) Coronavirus OC43 (PCR) (NotDetected) Coronavirus HKU1 (PCR) (NotDetected) Coronavirus 229E (PCR) (NotDetected) SARS-CoV-2 (PCR) (NotDetected) Coronavirus NL63 (PCR) (NotDetected) Human Metapneumovir PCR (NotDetected) Influenza Type A (PCR) (NotDetected) Influenza Type B (PCR) (NotDetected) M. pneumoniae (PCR) (NotDetected) Parainfluenza 1 (PCR) (NotDetected) Parainfluenza 2 (PCR) (NotDetected) Parainfluenza 3 (PCR) (NotDetected) Parainfluenza 4 (PCR) (NotDetected) RSV (PCR) (NotDetected) Entero/Rhino (PCR) (NotDetected) 01/21/25 01/21/25 01/21/25 Range/Units 19:11 20:19 20:54 WBC (4.8-10.8) K/ul RBC (4.20-5.40) M/uL Hgb (12.0-16.0) g/dl Hct (37.0-47.0) % MCV (80.0-100.0) fL MCH (25.0-34.0) pg MCHC (32.0-36.0) g/dL RDW Std Deviation (36.4-46.3) fL RDW Coeff of Sol (11.5-14.5) % Plt Count (130-400) K/uL MPV (9.4-12.4) fL Immature Gran % (Auto) % Neut % (Auto) % Lymph % (Auto) % [place] % (Auto) % Eos % (Auto) % Baso % (Auto) % Neut # (Auto) (1.40-6.50) K/uL Lymph # (Auto) (1.20-3.40) K/uL [place] # (Auto) (0.11-0.59) K/uL Eos # (Auto) (0.00-0.50) K/uL Baso # (Auto) (0.00-0.20) K/uL Immature Gran # (Auto) (0.01-0.20) K/uL Absolute Nucleated RBC (0.00-0.12) K/uL Nucleated RBC % (auto) % Toxic Vacuolation Target Cells PT (9.0-12.0) Seconds INR (0.9-1.1) APTT (21-31) Seconds PTT Ratio Sodium (136-145) mmol/L Potassium (3.5-5.1) mmol/L Chloride (98-107) mmol/L Carbon Dioxide (21-32) mmol/L Anion Gap (3-11) BUN (6-23) mg/dl Creatinine (0.6-1.2) mg/dl Est Cr Clr Drug Dosing ml/min eGFR BUN/Creatinine Ratio (10-20) Glucose (70-99(Fasting)) mg/dl POC Glucose 86 175 H (70-99) mg/dl Lactate 2.1 H* (0.4-2.0) mmol/L Calcium (8.6-10.3) mg/dl Phosphorus (2.5-4.9) mg/dl Magnesium (1.7-2.4) mg/dl Total Bilirubin (0.2-1.0) mg/dl AST (13-39) U/L ALT (7-52) U/L Alkaline Phosphatase (34-104) U/L Troponin I High Sens (0-14) pg/ml B-Natriuretic Peptide (0-100) pg/ml Total Protein (6.0-8.3) gm/dl Albumin (3.4-5.0) gm/dl Globulin (2.5-4.0) gm/dl Albumin/Globulin Ratio (0.9-2) Lipase (11-82) U/L Procalcitonin (0-0.5) ng/ml TSH (0.300-4.500) uIu/ml Free T4 (0.61-1.60) ng/dl Urine Color Urine Appearance (Clear) Urine pH (4.5-7.5) Ur Specific [place] (1.000-1.030) Urine Protein (Negative) Urine Glucose (UA) (Negative) Urine Ketones (Negative) Urine Blood (Negative) Urine Nitrite (Negative) Urine Bilirubin (Negative) Urine Urobilinogen (Negative) Ur Leukocyte Esterase (Negative) Urine WBC (Auto) (0-5) /hpf Urine RBC (Auto) (0-2) /hpf U Hyaline Cast (Auto) (0-2) /lpf U Epithel Cells (Auto) (0-2) /hpf Urine Bacteria (Auto) (None Seen) Adenovirus (PCR) (NotDetected) B. pertussis DNA (PCR) (NotDetected) B.parapertussis DNA PCR (NotDetected) C. pneumoniae DNA (PCR) (NotDetected) Coronavirus OC43 (PCR) (NotDetected) Coronavirus HKU1 (PCR) (NotDetected) Coronavirus 229E (PCR) (NotDetected) SARS-CoV-2 (PCR) (NotDetected) Coronavirus NL63 (PCR) (NotDetected) Human Metapneumovir PCR (NotDetected) Influenza Type A (PCR) (NotDetected) Influenza Type B (PCR) (NotDetected) M. pneumoniae (PCR) (NotDetected) Parainfluenza 1 (PCR) (NotDetected) Parainfluenza 2 (PCR) (NotDetected) Parainfluenza 3 (PCR) (NotDetected) Parainfluenza 4 (PCR) (NotDetected) RSV (PCR) (NotDetected) Entero/Rhino (PCR) (NotDetected) 01/21/25 01/21/25 01/22/25 Range/Units 21:40 23:58 00:00 WBC (4.8-10.8) K/ul RBC (4.20-5.40) M/uL Hgb (12.0-16.0) g/dl Hct (37.0-47.0) % MCV (80.0-100.0) fL MCH (25.0-34.0) pg MCHC (32.0-36.0) g/dL RDW Std Deviation (36.4-46.3) fL RDW Coeff of Sol (11.5-14.5) % Plt Count (130-400) K/uL MPV (9.4-12.4) fL Immature Gran % (Auto) % Neut % (Auto) % Lymph % (Auto) % [place] % (Auto) % Eos % (Auto) % Baso % (Auto) % Neut # (Auto) (1.40-6.50) K/uL Lymph # (Auto) (1.20-3.40) K/uL [place] # (Auto) (0.11-0.59) K/uL Eos # (Auto) (0.00-0.50) K/uL Baso # (Auto) (0.00-0.20) K/uL Immature Gran # (Auto) (0.01-0.20) K/uL Absolute Nucleated RBC (0.00-0.12) K/uL Nucleated RBC % (auto) % Toxic Vacuolation Target Cells PT (9.0-12.0) Seconds INR (0.9-1.1) APTT (21-31) Seconds PTT Ratio Sodium (136-145) mmol/L Potassium (3.5-5.1) mmol/L Chloride (98-107) mmol/L Carbon Dioxide (21-32) mmol/L Anion Gap (3-11) BUN (6-23) mg/dl Creatinine (0.6-1.2) mg/dl Est Cr Clr Drug Dosing ml/min eGFR BUN/Creatinine Ratio (10-20) Glucose (70-99(Fasting)) mg/dl POC Glucose 119 H (70-99) mg/dl Lactate 1.3 (0.4-2.0) mmol/L Calcium (8.6-10.3) mg/dl Phosphorus (2.5-4.9) mg/dl Magnesium (1.7-2.4) mg/dl Total Bilirubin (0.2-1.0) mg/dl AST (13-39) U/L ALT (7-52) U/L Alkaline Phosphatase (34-104) U/L Troponin I High Sens (0-14) pg/ml B-Natriuretic Peptide (0-100) pg/ml Total Protein (6.0-8.3) gm/dl Albumin (3.4-5.0) gm/dl Globulin (2.5-4.0) gm/dl Albumin/Globulin Ratio (0.9-2) Lipase (11-82) U/L Procalcitonin (0-0.5) ng/ml TSH (0.300-4.500) uIu/ml Free T4 (0.61-1.60) ng/dl Urine Color Yellow Urine Appearance Clear (Clear) Urine pH 5.0 (4.5-7.5) Ur Specific [place] 1.025 (1.000-1.030) Urine Protein Negative (Negative) Urine Glucose (UA) Negative (Negative) Urine Ketones Negative (Negative) Urine Blood Trace H (Negative) Urine Nitrite Negative (Negative) Urine Bilirubin Negative (Negative) Urine Urobilinogen Negative (Negative) Ur Leukocyte Esterase Negative (Negative) Urine WBC (Auto) 0-5 (0-5) /hpf Urine RBC (Auto) 3-5 H (0-2) /hpf U Hyaline Cast (Auto) 0-2 (0-2) /lpf U Epithel Cells (Auto) 3-5 H (0-2) /hpf Urine Bacteria (Auto) None Seen (None Seen) Adenovirus (PCR) (NotDetected) B. pertussis DNA (PCR) (NotDetected) B.parapertussis DNA PCR (NotDetected) C. pneumoniae DNA (PCR) (NotDetected) Coronavirus OC43 (PCR) (NotDetected) Coronavirus HKU1 (PCR) (NotDetected) Coronavirus 229E (PCR) (NotDetected) SARS-CoV-2 (PCR) (NotDetected) Coronavirus NL63 (PCR) (NotDetected) Human Metapneumovir PCR (NotDetected) Influenza Type A (PCR) (NotDetected) Influenza Type B (PCR) (NotDetected) M. pneumoniae (PCR) (NotDetected) Parainfluenza 1 (PCR) (NotDetected) Parainfluenza 2 (PCR) (NotDetected) Parainfluenza 3 (PCR) (NotDetected) Parainfluenza 4 (PCR) (NotDetected) RSV (PCR) (NotDetected) Entero/Rhino (PCR) (NotDetected) Administered Medications Albuterol (Albuterol 0.5% Neb Soln 2.5 Mg/0.5 Ml Vial) 2.5 mg NEB Q2H PRN; Protocol PRN Reason: SOB/Wheeze Stop: 02/21/25 04:56 Last Admin: 01/22/25 05:51 Dose: 2.5 mg Documented By: NIA Albuterol (Albut/Ipratrop 3mg/0.5mg Neb 3 Ml Vial) 3 ml INH QIDR BELEN; Protocol Stop: 02/21/25 06:59 Last Admin: 01/22/25 07:17 Dose: 3 ml Documented By: [id number] Clonazepam (Clonazepam 0.5 Mg Tab) 0.5 mg PO BID BELEN Stop: 02/21/25 04:56 Last Admin: 01/22/25 05:37 Dose: Not Given Documented By: NIA Heparin Sodium/Dextrose (Heparin 55277 Unit/500 Ml D5w) 25,000 units in 500 mls @ 15 mls/hr IV .Q24H BELEN; Protocol Stop: 02/20/25 21:14 Last Admin: 01/21/25 22:45 Dose: 750 units/hr, 15 mls/hr Documented By: GLEN Co-signed By: ANNIKA Piperacillin Sod/Tazobactam Sod (Zosyn) 4.5 gm in 100 mls @ 25 mls/hr IV Q8H [facility]; Protocol Stop: 01/24/25 05:59 Last Admin: 01/22/25 05:54 Dose: 25 mls/hr Documented By: NIA Levothyroxine Sodium (Levothyroxine Sodium 50 Mcg Tablet) 50 mcg PO DAILYBB [facility] Stop: 02/21/25 06:29 Last Admin: 01/22/25 06:06 Dose: 50 mcg Documented By: NIA Morphine Sulfate (Morphine Sulfate 2 Mg/Ml Carp) 2 mg IV Q3H PRN PRN Reason: Pain (1,2,3,4,5) & Pre PT Stop: 02/05/25 04:56 Last Admin: 01/22/25 05:28 Dose: 2 mg Documented By: NIA Discontinued Medications Albuterol (Albut/Ipratrop 3mg/0.5mg Neb 3 Ml Vial) 3 ml NEB NOW STA; Protocol Stop: 01/21/25 16:21 Last Admin: 01/21/25 17:58 Dose: Not Given Documented By: GLEN Albuterol (Albut/Ipratrop 3mg/0.5mg Neb 3 Ml Vial) 3 ml NEB NOW STA; Protocol Stop: 01/21/25 22:15 Last Admin: 01/21/25 23:13 Dose: 3 ml Documented By: NIA Benzonatate (Benzonatate 100 Mg Capsule) 100 mg PO NOW STA Stop: 01/21/25 22:26 Last Admin: 01/21/25 23:13 Dose: 100 mg Documented By: NIA Clonazepam (Clonazepam 0.5 Mg Tab) 0.5 mg PO NOW STA Stop: 01/21/25 22:15 Last Admin: 01/21/25 23:13 Dose: 0.5 mg Documented By: NIA Dextrose (Dextrose 50% 50 Ml Syringe) 50 ml IV NOW ONE Stop: 01/21/25 19:03 Last Admin: 01/21/25 19:13 Dose: 50 ml Documented By: ANNIKA Furosemide (Furosemide Inj 20 Mg/2 Ml Vial) 10 mg IV ONE STA Stop: 01/21/25 22:26 Last Admin: 01/21/25 23:13 Dose: 10 mg Documented By: NIA Heparin Sodium (Porcine) (Heparin Sod (Porcine) 1000 Unit/Ml) 1 units IV NOW ONE Stop: 01/21/25 21:04 Last Admin: 01/21/25 22:44 Dose: 4,000 units Documented By: GLEN Co-signed By: ANNIKA Hydrocodone Bit/Homatropine Methylb (Hydrocodone/Homatropine Syrup 5mg/1.5mg 5ml Udp) 5 ml PO NOW STA Stop: 01/22/25 01:11 Last Admin: 01/22/25 01:24 Dose: 5 ml Documented By: NIA Piperacillin Sod/Tazobactam Sod (Zosyn) 4.5 gm in 100 mls @ 200 mls/hr IV NOW ONE; Protocol Stop: 01/21/25 20:55 Last Infusion: 01/21/25 23:06 Dose: Infused Documented By: Admin: 01/21/25 21:35 Dose: 200 mls/hr Documented By: LJM Acetaminophen 650 mg/ EMPTY (BAG) 65 mls @ 260 mls/hr IV NOW STA Stop: 01/21/25 20:27 Last Infusion: 01/21/25 23:14 Dose: Infused Documented By: Admin: 01/21/25 21:35 Dose: 260 mls/hr Documented By: GLEN Ioversol (Optiray 320 125ml) 119 ml IV ONCE ONE Stop: 01/21/25 17:50 Last Admin: 01/21/25 17:49 Dose: 119 ml Documented By: IRA Morphine Sulfate (Morphine Sulfate 2 Mg/Ml Carp) 2 mg IV NOW STA Stop: 01/21/25 16:22 Last Admin: 01/21/25 18:02 Dose: Not Given Documented By: GLEN Olanzapine (Olanzapine 2.5 Mg Tab) 2.5 mg PO HS STA Stop: 01/21/25 22:27 Last Admin: 01/21/25 23:12 Dose: 2.5 mg Documented By: NIA Imaging Data Radiologist's Impression: Aorta w/Runoff CTA 01/21/25 16:18 EXAM: CT ang AA roselia w frank khoury CLINICAL HISTORY: OvCA perit carcinomatosis, Absent R pedal pulses. TECHNIQUE: CT Angiography of abdominal aorta, bilateral iliac and femoropopliteal arterial trees with IV contrast administration. 119ml Optiray 320 One of these 3D techniques was utilized: Maximum Intensity Pixel (MIP), 3D Reconstructed Images, Volume Rendered Images, Surface Shaded Rendering. One of the following dose reduction techniques was utilized for this exam: Automated exposure control, adjustment of the mA and/or kV according to patient size, and use of iterative reconstruction. COMPARISON: Comoared to prior CT 01/02/2025 FINDINGS: Diffuse increase in intimal medial thickness of all examined arteries with no significant stenosis except at the right common iliac artery reaching 75 %. Aorta: The abdominal aorta is normal in caliber. No evidence of aneurysm, dissection, or significant atherosclerotic changes. Aortic bifurcation is unremarkable. Renal Arteries: Renal arteries are normal in size and opacification. No evidence of stenosis or occlusion. Symmetric perfusion of both kidneys. Mesenteric Arteries: Superior mesenteric artery (SMA) and inferior mesenteric artery (RAJNI) are normal in caliber and opacification. No evidence of stenosis or occlusion. Celiac Artery: Celiac artery is normal in caliber and opacification. No evidence of stenosis or occlusion. Iliac Arteries: Common, internal, and external iliac arteries are normal in caliber and opacification. No evidence of stenosis, aneurysm, or occlusion. 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 Femoral Arteries: Common femoral arteries are normal in caliber and opacification. No evidence of stenosis or occlusion. Superficial and deep femoral arteries are normal in appearance. Popliteal Arteries: Popliteal arteries are normal in caliber and opacification. No evidence of stenosis or occlusion. Tibial Arteries: Anterior tibial, posterior tibial, and peroneal arteries are normal in caliber and opacification. No evidence of stenosis or occlusion. Venous Structures: Inferior vena cava (IVC) and major venous structures are normal in caliber and opacification. No evidence of thrombus or obstruction. Liver: Normal size and morphology. Homogeneous enhancement post-contrast. No focal hepatic lesions. Gallbladder and Biliary System: Chlecywtetcomy clips. Dilated intrahepatic and extrahepatic biliary channels. reach CBD 12 mm. Pancreas: Normal size and contour. Homogeneous enhancement post-contrast. No masses or cystic lesions. Spleen: Normal size and appearance. Homogeneous enhancement post-contrast. Adrenal Glands: Normal size and morphology bilaterally. No adrenal masses. Kidneys and Ureters: Normal size, shape, and position of both kidneys. Homogeneous enhancement post-contrast. No renal stones, masses, or hydronephrosis. Ureters are unremarkable. Bladder: Normal in size and wall thickness. No intraluminal masses. Bilateral complex adenxal cystic masses. Normal enhancement post-contrast. Bowel: Normal appearance of the visualized bowel loops. No evidence of obstruction, wall thickening, or abnormal dilatation. Lymph Nodes: No pathologically enlarged lymph nodes in the abdomen or pelvis. Peritoneum: Marked amount of free fluid in abdomen and pelvis with multiple nodules and enhancing omental deposits, largest anterior to the spleen measuring about 10x5.5 cm. Bones: No lytic or sclerotic lesions. Normal alignment and bone density. Soft Tissues: Normal appearance of the visualized soft tissues. IMPRESSION: 1. 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 2. 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 with marked ascites, and enhancing omental deposits, largest anterior to the spleen measuring about 10x5.5 cm., suggest clinical assessment, and tumor markers (unchanged) 3. Dilated intrahepatic and extrahepatic biliary channels. reach CBD 12 mm. Suggest MRCP and clinical assessment (new) Electronically signed by Nohemy Leahy 01-21-2025 8:08 PM Chest CTA 01/21/25 16:18 EXAM: CT angio chest PE protocol CLINICAL HISTORY: SOB, OvCA peritoneal carcinomatosis, r/o PE TECHNIQUE: CT angiography of the chest was performed with the administration of intravenous contrast with the following protocol: axial images with, reconstructed coronal and sagittal images. The contrast-enhanced images were acquired in arterial and venous phases. Intravenous contrast was administered using automated injection techniques. Bolus tracking was employed to optimize arterial phase imaging. One of these 3D techniques was utilized: Maximum Intensity Pixel (MIP), 3D Reconstructed Images, Volume Rendered Images, Surface Shaded Rendering. One of the following dose reduction techniques was utilized for this exam: Automated exposure control, adjustment of the mA and/or kV according to patient size, and use of iterative reconstruction. (CTDI: 23.75 mGy, DLP: 2661.55 mGy*cm) COMPARISON: Comparison is made with 01/02/2025. FINDINGS: Aorta and Great Vessels: Ascending Aorta: Normal in caliber, no aneurysm, dissection, or significant atherosclerosis. Aortic Arch: Normal in caliber, no aneurysm, dissection, or significant atherosclerosis. Descending Aorta: Normal in caliber, no aneurysm, dissection, or significant atherosclerosis. Pulmonary Arteries: The main pulmonary artery and its branches are patent. No evidence of pulmonary embolism or significant stenosis. Heart: Cardiac Chambers: increase cardiac size. Pericardium: No pericardial effusion or thickening. Lungs and Pleura: Bilateral basal consolidations Bilateral moderate pleural effusion with passive atelectasis. Slight compressed lower trachea and bronchi with patent lumen. Mediastinum: No mediastinal mass or abnormal lymphadenopathy. Normal appearance of the trachea and central bronchi. Hilar Structures: Hilar structures are normal without enlargement. Chest Wall: No mass lesions or abnormalities in the chest wall. Vascular Structures: Superior Vena Cava: Patent without evidence of stenosis or thrombus. Inferior Vena Cava: Patent without evidence of stenosis or thrombus. Bones and Soft Tissues: No fractures, lytic, or blastic lesions of the visualized bony structures. Thoracic spondylosis. Soft tissues are unremarkable. IMPRESSION: 1. No pulmonary embolism at the time of the scan. (unchanged) 2. Bilateral moderate pleural effusion with compression collapse of both posterior segments of both lower lobes. (unchanged) 3. Slight compressed lower trachea and bronchi with patent lumen. (unchanged) suggests clinical assessment. 4. Cardiomegaly. (unchanged) Electronically signed by Nohemy Leahy 01-21-2025 7:47 PM Duplex Scan Lower Extremity Artery 01/21/25 18:09 Exam(s): US ARTERIAL RIGHT LOWER EXTREMITY EXAM: US Duplex Right Lower Extremity Arteries CLINICAL HISTORY: Absent right pedal pulses. TECHNIQUE: Real-time duplex ultrasound scan of the right lower extremity arteries integrating B-mode two-dimensional vascular structure, Doppler spectral analysis and color flow Doppler imaging. COMPARISON: No relevant prior studies available. 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 There is multiphasic wave forms of the peak systolic velocity of 72 cm/s. Right superficial femoral artery: The superficial femoral artery is patent with atherosclerotic disease and multiphasic waveforms, with the peak systolic velocities measuring 104 cm/s proximally, 107 cm at the mid segment and 77 cm/s distally. Right popliteal artery: The right popliteal artery demonstrates monophasic waveforms with a peak systolic velocity of between 30-40 cm/s. Right calf/foot arteries: The right posterior tibial artery is not well delineated. No arterial flow noted in this region. The peroneal artery is not clearly delineated. The proximal right anterior tibial artery is patent with monophasic waveforms and peak systolic velocity of 24 cm/s. The mid to distal anterior tibial artery are not clearly delineated and may be occluded. The dorsalis pedis artery is not definitively delineated sonographically. Other arteries: The proximal right profunda femoral artery is patent with biphasic waveforms in the peak systolic velocity of 64 cm/s. Soft tissues: Subcutaneous edema noted at the calf. IMPRESSION: 1. The proximal right anterior tibial artery is patent with monophasic waveforms and peak systolic velocity of 24 cm/s. The mid to distal anterior tibial artery are not clearly delineated and may be occluded. The peroneal and posterior tibial arteries are not identified. The dorsalis pedis artery is not clearly delineated and may be occluded. Recommend further evaluation with CTA or conventional angiography, as clinically indicated. 2. Atherosclerotic disease from the common femoral through the superficial femoral arteries. No elevated velocities to suggest a focal hemodynamic stenosis. The popliteal artery demonstrates monophasic waveforms, but is patent. Electronically signed by: Pato Aldana MD 01/21/25 21:20 PM Venous Doppler Study 01/21/25 18:09 Exam(s): US VENOUS BILATERAL LOWER EXTREMITIES EXAM: US Duplex Bilateral Lower Extremities Veins CLINICAL HISTORY: BLE edema. TECHNIQUE: Real-time duplex ultrasound scan of the bilateral lower extremity veins integrating B-mode two-dimensional vascular structure, Doppler spectral analysis, color flow Doppler imaging and compression. COMPARISON: No relevant prior studies available. FINDINGS: Limitations: Evaluation is reportedly limited by underlying edema. Right deep veins: Unremarkable. No DVT in the right common femoral, femoral, proximal deep femoral or popliteal veins. The veins demonstrate normal color flow, are normally compressible, with normal phasic flow and/or augmentation response. The interrogated calf veins are patent. Right superficial veins: Unremarkable. No thrombus in the saphenofemoral junction. Left deep veins: Unremarkable. No DVT in the left common femoral, femoral, proximal deep femoral or popliteal veins. The veins demonstrate normal color flow, are normally compressible, with normal phasic flow and/or augmentation response. The interrogated calf veins are patent. Left superficial veins: Unremarkable. No thrombus in the saphenofemoral junction. Soft tissues: Diffuse subcutaneous fat stranding noted, most prominent from the knees distally. No loculated fluid collection. No popliteal cyst. IMPRESSION: 1. No evidence for deep vein thrombosis involving the bilateral lower extremities. 2. Bilateral subcutaneous edema. Electronically signed by: Pato Aldana MD 01/21/25 21:16 PM Discharge Plan Visit Data Chief Complaint: Shortness of Breath/Dyspnea ED Provider: Sohail Flood Discharge Problem: Peritoneal carcinomatosis, Primary cancer of ovary with widespread metastatic disease, Elevated troponin, Bilateral edema of lower extremity, Pleural effusion, Ascites, Vascular occlusion, Hypoalbuminemia, Transaminitis Discharge Instructions Interventions: ED Discharge Assessment Last Done: 01/22/25 04:58 Discharge Problem: Primary cancer of ovary with widespread metastatic disease Qualifiers: Laterality: unspecified laterality Qualified Code(s): C56.9 - Malignant neoplasm of unspecified ovary; C80.0 - Disseminated malignant neoplasm, unspecified Ascites Qualifiers: Ascites type: other type Qualified Code(s): R18.8 - Other ascites
--- NOTE | 2025-01-21 13:38 | XRay Report ---
XR chest 1V portable CLINICAL HISTORY: Chest pain, nonspecific COMPARISON STUDY: 01/02/2025 FINDINGS: Heart size and pulmonary vasculature are normal. There are small bilateral pleural effusion s and associated lung base consolidation, improved on the left and stable on the right. No pneumothor ax. IMPRESSION: Bilateral pleural effusions, improved on the left and stable on the right. ACT 112: Negative or not required by law. Electronically signed by: Oneil Kirby M.D. 01/21/2025 1:37 PM
[2025-01-21 15:24] LABS: Hematocrit (blood only) 38.7 % (37.0-47.0); Hemoglobin 12.3 g/dl (12.0-16.0); Mean Corpuscular Hemoglobin 27.5 pg (25.0-34.0); Mean Corpuscular Hgb Conc 31.8 g/dL (32.0-36.0); Mean Corpuscular Volume 86.4 fL (80.0-100.0); Nucleated RBC # (auto) 0.02 K/uL (0.00-0.12); Nucleated RBC % (auto) 0.2 %; Platelet Count 310 K/uL (130-400); RDW Coefficient of Variation 17.4 % (11.5-14.5); RDW Standard Deviation 54.9 fL (36.4-46.3); Red Blood Count 4.48 M/uL (4.20-5.40); White Blood Count 11.17 K/ul (4.8-10.8)
[2025-01-21 15:33] LABS: Adenovirus PCR Not Detected (NotDetected); Bordetella parapertussis PCR Not Detected (NotDetected); Bordetella pertussis PCR Not Detected (NotDetected); Chlamydia pneumoniae PCR Not Detected (NotDetected); Coronavirus 229E PCR Not Detected (NotDetected); Coronavirus CoV-2 (COVID19)PCR Not Detected (NotDetected); Coronavirus HKU1 PCR Not Detected (NotDetected); Coronavirus NL63 PCR Not Detected (NotDetected); Coronavirus OC43PCR Not Detected (NotDetected); Human Metapneumovirus PCR Not Detected (NotDetected); Influenza A PCR Not Detected (NotDetected); Influenza B PCR Not Detected (NotDetected); Mycoplasma pneumoniae PCR Not Detected (NotDetected); Parainfluenza Virus 1 PCR Not Detected (NotDetected); Parainfluenza Virus 2 PCR Not Detected (NotDetected); Parainfluenza Virus 3 PCR Not Detected (NotDetected); Parainfluenza Virus 4 PCR Not Detected (NotDetected); Respiratory Syncytial VirusPCR Not Detected (NotDetected); Rhinovirus/Enterovirus PCR Not Detected (NotDetected)
[2025-01-21 15:41] LABS: Albumin Level 2.6 gm/dl (3.4-5.0); BUN Creatinine Ratio 45.8 (10-20); Calcium 8.3 mg/dl (8.6-10.3); Creatinine Clr Calc Pharmacy 47.5 ml/min; Globulin 2.7 gm/dl (2.5-4.0); Magnesium 2.1 mg/dl (1.7-2.4); Phosphorus 3.1 mg/dl (2.5-4.9); Potassium 3.8 mmol/L (3.5-5.1); Total Protein 5.3 gm/dl (6.0-8.3)
[2025-01-21 15:49] LABS: INR 1.4 (0.9-1.1); Prothrombin Time 14.6 Seconds (9.0-12.0)
[2025-01-21 15:50] LABS: Troponin I High Sensitivity 174.8 pg/ml (0-14)
[2025-01-21 16:39] LABS: Eosinophils # (auto) 0.02 K/uL (0.00-0.50); Eosinophils % (auto) 0.2 %; Immature Granulocytes # (auto) 0.05 K/uL (0.01-0.20); Immature Granulocytes % (auto) 0.4 %; Lymphocytes # (auto) 0.44 K/uL (1.20-3.40); Lymphocytes % (auto) 3.9 %; Monocytes # (auto) 0.08 K/uL (0.11-0.59); Monocytes % (auto) 0.7 %; Neutrophils # (auto) 10.58 K/uL (1.40-6.50); Neutrophils % (auto) 94.8 %; Target Cells 1+; Toxic Vacuolation 1+
[2025-01-21 17:21] LABS: Thyroid Stimulating Hormone 4.667 uIu/ml (0.300-4.500)
[2025-01-21] MEDS: OPTIRAY 320 125ml IV ONE (17:49)
[2025-01-21 17:56] LABS: T4 Free Thyroxine 1.05 ng/dl (0.61-1.60)
[2025-01-21] MEDS: ALBUT/IPRATROP 3MG/0.5MG NEB 3 ML VIAL NEB STA ×2 (17:58→23:13)
[2025-01-21] MEDS: MoRPHine SULFATE 2 MG/ML CARP IV STA (18:02)
[2025-01-21] MEDS: DEXTROSE 50% 50 ML SYRINGE IV ONE (19:13)
--- NOTE | 2025-01-21 19:47 | CT Scan Report ---
EXAM: CT angio chest PE protocol CLINICAL HISTORY: SOB, OvCA peritoneal carcinomatosis, r/o PE TECHNIQUE: CT angiography of the chest was performed with the administration of intravenous contrast with the following protocol: axial images with, reconstructed coronal and sagittal images. The contrast-enhanced images were acquired in arterial and venous phases. Intravenous contrast was administered using automated injection techniques. Bolus tracking was employed to optimize arterial phase imaging. One of these 3D techniques was utilized: Maximum Intensity Pixel (MIP), 3D Reconstructed Images, Volume Rendered Images, Surface Shaded Rendering. One of the following dose reduction techniques was utilized for this exam: Automated exposure control, adjustment of the mA and/or kV according to patient size, and use of iterative reconstruction. (CTDI: 23.75 mGy, DLP: 2661.55 mGy*cm) COMPARISON: Comparison is made with 01/02/2025. FINDINGS: Aorta and Great Vessels: Ascending Aorta: Normal in caliber, no aneurysm, dissection, or significant atherosclerosis. Aortic Arch: Normal in caliber, no aneurysm, dissection, or significant atherosclerosis. Descending Aorta: Normal in caliber, no aneurysm, dissection, or significant atherosclerosis. Pulmonary Arteries: The main pulmonary artery and its branches are patent. No evidence of pulmonary embolism or significant stenosis. Heart: Cardiac Chambers: increase cardiac size. Pericardium: No pericardial effusion or thickening. Lungs and Pleura: Bilateral basal consolidations Bilateral moderate pleural effusion with passive atelectasis. Slight compressed lower trachea and bronchi with patent lumen. Mediastinum: No mediastinal mass or abnormal lymphadenopathy. Normal appearance of the trachea and central bronchi. Hilar Structures: Hilar structures are normal without enlargement. Chest Wall: No mass lesions or abnormalities in the chest wall. Vascular Structures: Superior Vena Cava: Patent without evidence of stenosis or thrombus. Inferior Vena Cava: Patent without evidence of stenosis or thrombus. Bones and Soft Tissues: No fractures, lytic, or blastic lesions of the visualized bony structures. Thoracic spondylosis. Soft tissues are unremarkable. IMPRESSION: 1. No pulmonary embolism at the time of the scan. (unchanged) 2. Bilateral moderate pleural effusion with compression collapse of both posterior segments of both lower lobes. (unchanged) 3. Slight compressed lower trachea and bronchi with patent lumen. (unchanged) suggests clinical assessment. 4. Cardiomegaly. (unchanged) Electronically signed by Nohemy Leahy 01-21-2025 7:47 PM
--- NOTE | 2025-01-21 20:08 | CT Scan Report ---
EXAM: CT ang AA roselia khoury CLINICAL HISTORY: OvCA perit carcinomatosis, Absent R pedal pulses. TECHNIQUE: CT Angiography of abdominal aorta, bilateral iliac and femoropopliteal arterial trees with IV contrast administration. 119ml Optiray 320 One of these 3D techniques was utilized: Maximum Intensity Pixel (MIP), 3D Reconstructed Images, Volume Rendered Images, Surface Shaded Rendering. One of the following dose reduction techniques was utilized for this exam: Automated exposure control, adjustment of the mA and/or kV according to patient size, and use of iterative reconstruction. COMPARISON: Comoared to prior CT 01/02/2025 FINDINGS: Diffuse increase in intimal medial thickness of all examined arteries with no significant stenosis except at the right common iliac artery reaching 75 %. Aorta: The abdominal aorta is normal in caliber. No evidence of aneurysm, dissection, or significant atherosclerotic changes. Aortic bifurcation is unremarkable. Renal Arteries: Renal arteries are normal in size and opacification. No evidence of stenosis or occlusion. Symmetric perfusion of both kidneys. Mesenteric Arteries: Superior mesenteric artery (SMA) and inferior mesenteric artery (RAJNI) are normal in caliber and opacification. No evidence of stenosis or occlusion. Celiac Artery: Celiac artery is normal in caliber and opacification. No evidence of stenosis or occlusion. Iliac Arteries: Common, internal, and external iliac arteries are normal in caliber and opacification. No evidence of stenosis, aneurysm, or occlusion. 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 Femoral Arteries: Common femoral arteries are normal in caliber and opacification. No evidence of stenosis or occlusion. Superficial and deep femoral arteries are normal in appearance. Popliteal Arteries: Popliteal arteries are normal in caliber and opacification. No evidence of stenosis or occlusion. Tibial Arteries: Anterior tibial, posterior tibial, and peroneal arteries are normal in caliber and opacification. No evidence of stenosis or occlusion. Venous Structures: Inferior vena cava (IVC) and major venous structures are normal in caliber and opacification. No evidence of thrombus or obstruction. Liver: Normal size and morphology. Homogeneous enhancement post-contrast. No focal hepatic lesions. Gallbladder and Biliary System: Chlecywtetcomy clips. Dilated intrahepatic and extrahepatic biliary channels. reach CBD 12 mm. Pancreas: Normal size and contour. Homogeneous enhancement post-contrast. No masses or cystic lesions. Spleen: Normal size and appearance. Homogeneous enhancement post-contrast. Adrenal Glands: Normal size and morphology bilaterally. No adrenal masses. Kidneys and Ureters: Normal size, shape, and position of both kidneys. Homogeneous enhancement post-contrast. No renal stones, masses, or hydronephrosis. Ureters are unremarkable. Bladder: Normal in size and wall thickness. No intraluminal masses. Bilateral complex adenxal cystic masses. Normal enhancement post-contrast. Bowel: Normal appearance of the visualized bowel loops. No evidence of obstruction, wall thickening, or abnormal dilatation. Lymph Nodes: No pathologically enlarged lymph nodes in the abdomen or pelvis. Peritoneum: Marked amount of free fluid in abdomen and pelvis with multiple nodules and enhancing omental deposits, largest anterior to the spleen measuring about 10x5.5 cm. Bones: No lytic or sclerotic lesions. Normal alignment and bone density. Soft Tissues: Normal appearance of the visualized soft tissues. IMPRESSION: 1. 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 2. 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 with marked ascites, and enhancing omental deposits, largest anterior to the spleen measuring about 10x5.5 cm., suggest clinical assessment, and tumor markers (unchanged) 3. Dilated intrahepatic and extrahepatic biliary channels. reach CBD 12 mm. Suggest MRCP and clinical assessment (new) Electronically signed by Nohemy Leahy 01-21-2025 8:08 PM
[2025-01-21] MEDS ORDERED: Heparin IV Adult Wt-Based Low-Dose w/ INITIAL Bolus Protocol IV STA (20:45)
--- NOTE | 2025-01-21 21:17 | Ultrasound Report ---
Exam(s): US VENOUS BILATERAL LOWER EXTREMITIES EXAM: US Duplex Bilateral Lower Extremities Veins CLINICAL HISTORY: BLE edema. TECHNIQUE: Real-time duplex ultrasound scan of the bilateral lower extremity veins integrating B-mode two-dimensional vascular structure, Doppler spectral analysis, color flow Doppler imaging and compression. COMPARISON: No relevant prior studies available. FINDINGS: Limitations: Evaluation is reportedly limited by underlying edema. Right deep veins: Unremarkable. No DVT in the right common femoral, femoral, proximal deep femoral or popliteal veins. The veins demonstrate normal color flow, are normally compressible, with normal phasic flow and/or augmentation response. The interrogated calf veins are patent. Right superficial veins: Unremarkable. No thrombus in the saphenofemoral junction. Left deep veins: Unremarkable. No DVT in the left common femoral, femoral, proximal deep femoral or popliteal veins. The veins demonstrate normal color flow, are normally compressible, with normal phasic flow and/or augmentation response. The interrogated calf veins are patent. Left superficial veins: Unremarkable. No thrombus in the saphenofemoral junction. Soft tissues: Diffuse subcutaneous fat stranding noted, most prominent from the knees distally. No loculated fluid collection. No popliteal cyst. IMPRESSION: 1. No evidence for deep vein thrombosis involving the bilateral lower extremities. 2. Bilateral subcutaneous edema. Electronically signed by: Pato Aldana MD 01/21/25 21:16 PM
--- NOTE | 2025-01-21 21:21 | Ultrasound Report ---
Exam(s): US ARTERIAL RIGHT LOWER EXTREMITY EXAM: US Duplex Right Lower Extremity Arteries CLINICAL HISTORY: Absent right pedal pulses. TECHNIQUE: Real-time duplex ultrasound scan of the right lower extremity arteries integrating B-mode two-dimensional vascular structure, Doppler spectral analysis and color flow Doppler imaging. COMPARISON: No relevant prior studies available. 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 There is multiphasic wave forms of the peak systolic velocity of 72 cm/s. Right superficial femoral artery: The superficial femoral artery is patent with atherosclerotic disease and multiphasic waveforms, with the peak systolic velocities measuring 104 cm/s proximally, 107 cm at the mid segment and 77 cm/s distally. Right popliteal artery: The right popliteal artery demonstrates monophasic waveforms with a peak systolic velocity of between 30-40 cm/s. Right calf/foot arteries: The right posterior tibial artery is not well delineated. No arterial flow noted in this region. The peroneal artery is not clearly delineated. The proximal right anterior tibial artery is patent with monophasic waveforms and peak systolic velocity of 24 cm/s. The mid to distal anterior tibial artery are not clearly delineated and may be occluded. The dorsalis pedis artery is not definitively delineated sonographically. Other arteries: The proximal right profunda femoral artery is patent with biphasic waveforms in the peak systolic velocity of 64 cm/s. Soft tissues: Subcutaneous edema noted at the calf. IMPRESSION: 1. The proximal right anterior tibial artery is patent with monophasic waveforms and peak systolic velocity of 24 cm/s. The mid to distal anterior tibial artery are not clearly delineated and may be occluded. The peroneal and posterior tibial arteries are not identified. The dorsalis pedis artery is not clearly delineated and may be occluded. Recommend further evaluation with CTA or conventional angiography, as clinically indicated. 2. Atherosclerotic disease from the common femoral through the superficial femoral arteries. No elevated velocities to suggest a focal hemodynamic stenosis. The popliteal artery demonstrates monophasic waveforms, but is patent. Electronically signed by: Pato Aldana MD 01/21/25 21:20 PM
[2025-01-21 21:35] LABS: Partial Thromboplastin Ratio 1.2; Partial Thromboplastin Time 31 Seconds (21-31)
[2025-01-21] MEDS: PIPERACILLIN/TAZOBACTAM 4.5 GM/100 ML BAG IV ONE (21:35)
[2025-01-21] MEDS: ACETAMINOPHEN 10MG/ML Custom 650 MG in EMPTY BAG 0 ML IV STA (21:35)
[2025-01-21 21:50] LABS: Appearance Urine Clear (Clear); Bacteria Urine Automated None Seen (None Seen); Bilirubin Urine Negative (Negative); Blood Urine Trace (Negative); Cast Urine Automated 0-2 /lpf (0-2); Color Urine Yellow; Glucose Urine UA Negative (Negative); Ketones Urine Negative (Negative); Leukocyte Esterase Urine Negative (Negative); Nitrite Urine Negative (Negative); Protein Urine Negative (Negative); Specific Gravity Urine 1.025 (1.000-1.030); Urobilinogen Urine Negative (Negative); WBC Urine Automated 0-5 /hpf (0-5)
--- NOTE | 2025-01-21 22:07 | History & Physical Report ---
Date of Service January 21, 2025 Assessment & Plan (1) Asthma exacerbation: Plan: Patient with diffuse wheezing and shortness of breath. Likely secondary to pulmonary edema in setting of diffusely metastatic ovarian cancer. -Lasix 10mg IV given in the ER -Lasix 20mg IV q AM -Monitor I/Os -Monitor daily weights -Prednisone 40mg po daily -DuoNeb q 4 hours -Budesonide BID -Albuterol PRN -Continue Singulair -Tessalon TID PRN -Empiric Zosyn, recent chemotherapy, leukocytosis with elevated procalcitonin (2) Vascular occlusion: Plan: Patient with pain, pallor and poikilothermia of RLE. Possible vascular occlusion noted on imaging involving mid to distal anterior tibial artery, peroneal and posterior tibia arteries, dorsalis pedis arteries. Case was discussed with Vascular Surgery. -Heparin gtt -Pain control with Tylenol, Morphine PRN -Vascular Surgery Consultation appreciated (3) Primary cancer of ovary with widespread metastatic disease: Plan: Patient with diffusely metastatic ovarian cancer with pleural effusions and ascites. Recently started on Chemotherapy New elevation of LFTs - JHA=483, YBE=381, JZ=481. Possible liver involvement vs chemotherapy effects? -Oncology assistance appreciated -Consider IR consultation for possible paracentesis. Patient with notable ascites on exam -Repeat LFTs in AM, additional imaging if continue to increase (4) Elevated troponin: Plan: Patient denies chest pain. Troponin is elevated at 229.6. Has bee n increasing since early December. No report of chest pain at present. No ischemic changes on EKG -Trend troponin -Telemetry monitoring (5) Pleural effusion: Plan: Noted. Patient on room air. -Trial of diuresis with Lasix 20mg IV daily -Monitor respiratory status -May need repeat thoracentesis if progression (6) Hypothyroidism: Plan: Chronic. Stable. TSH elevated with normal T4. -Continue Synthroid (7) Type 2 diabetes mellitus: Plan: Chronic -Lantus 8u BID -ISS -Goal blood sugar 110 - 140 Plan Anxiety/Depression -Continue Fluoxetine -Continue Clonazepam 0.5mg po BID -Olanzapine 2.5mg po qHS until 01/22/25 PM History of Present Illness Chief Complaint: SOB, wheeze and abdominal fullness Primary Care Provider: Davy Aguirremiah Hannah is a 69yo female with history of DM, HLP, Asthma/COPD and recently diagnosed widespread metastatic ovarian cancer with carcinomatosis presenting with shortness of breath, cough and wheeze. Patient presented to [facility] on 01/01/25 with complaint of shortness of breath. She was found to have bilateral pleural effusions with pulmonary edema as well as an ovarian mass with abdominal ascites with omental/peritoneal implants/ carcinomatosis. She had a paracentesis and thoracentesis performed on 01/03/25 which revealed malignant cells consistent with metastatic ovarian adenocarcinoma, serous type. Patient had a second paracentesis performed on 01/07/25. She had a NM Bone Scan performed on 01/07/25 which did not reveal skeletal metastases. Patient was ultimately [facility] on [facility] Patient presents today with worsening shortness of breath and wheeze as well as worsening abdominal distention and tenderness. Patient also with bilateral LE edema and pain, numbness and coldness of her right foot which has been ongoing for the last day. She denies fever, chills, chest pain, palpitations, nausea, vomiting or diarrhea. She has had poor appetite and decreased oral intake. No additional complaints at this time. She has followed up with Oncology and reports receiving 5 chemotherapy treatments with the last being on 01/18/25/ Allergies Allergy/AdvReac Type Severity Reaction Status Date / Time metformin Allergy Severe Verified 01/01/25 18:29 cashew nut Allergy Verified 01/04/25 12:54 hazelnut Allergy Verified 01/04/25 12:54 nut - unspecified Allergy Verified 01/04/25 12:54 peanut Allergy Verified 01/04/25 12:54 peanut oil Allergy Verified 01/04/25 12:54 pecan nut Allergy Verified 01/04/25 12:54 aspirin AdvReac Difficulty Verified 01/01/25 18:29 Breathing Home Medications Medication Instructions Recorded Confirmed Type fenofibrate micronized 200 mg 200 mg PO QPM 06/19/19 01/21/25 History capsule multivitamin 1 tab PO QAM 06/19/19 01/21/25 History simvastatin 20 mg tablet 20 mg PO QAM #90 tabs 07/10/20 01/21/25 History albuterol sulfate 0.63 mg/3 mL 0.63 mg (3 mL) continuous 12/05/24 01/21/25 Rx solution for nebulization nebulization Q4H PRN shortness of breath or wheezing #90 mL levothyroxine 50 mcg tablet 50 mcg PO DAILY 12/05/24 01/21/25 History benzonatate 100 mg capsule 100 mg PO TID PRN cough #30 caps 12/13/24 01/21/25 Rx furosemide 20 mg tablet 20 mg PO QAM 12/20/24 01/21/25 History clonazepam 0.5 mg tablet 0.5 mg PO BID 12/25/24 01/21/25 History insulin glargine 100 unit/mL (3 16 unit subcut QAM 12/25/24 01/21/25 History mL) subcutaneous pen (Lantus Solostar U-100 Insulin) insulin lispro 100 unit/mL 4 unit subcut WM 12/25/24 01/21/25 History subcutaneous pen (Humalog KwikPen (U-100) Insulin) ipratropium 20 mcg-albuterol 100 1 puff inhalation QID 12/25/24 01/21/25 History mcg/actuation mist for inhalation (Combivent Respimat) tezepelumab-ekko 210 mg/1.91 mL 210 mg subcut UD 12/25/24 01/21/25 History (110 mg/mL) subcutaneous pen injector (Tezspire) tiotropium bromide 18 mcg capsule 18 mcg inhalation QAM 12/25/24 01/21/25 History with inhalation device brexpiprazole 3 mg tablet (Rexulti) 3 mg PO QPM 01/01/25 01/21/25 History fluoxetine 40 mg capsule 80 mg PO DAILY 01/01/25 01/21/25 History acetaminophen 325 mg tablet 650 mg PO Q4 PRN Fever Or Pain 01/21/25 01/21/25 History budesonide 180 mcg/actuation 1 inh inhalation BID 01/21/25 01/21/25 History breath activated powder inhaler (Pulmicort Flexhaler) cholecalciferol (vitamin D3) 25 25 mcg PO QAM 01/21/25 01/21/25 History mcg (1,000 unit) capsule (Vitamin D3) ipratropium 0.5 mg-albuterol 3 mg 3 ml inhalation QID 01/21/25 01/21/25 History (2.5 mg base)/3 mL nebulization soln loperamide 2 mg tablet (Imodium 2 mg PO Q6H PRN Diarrhea 01/21/25 01/21/25 History A-D) montelukast 10 mg tablet 10 mg PO HS 01/21/25 01/21/25 History (Singulair) nystatin 100,000 unit/gram topical 1 applic topical UD 01/21/25 01/21/25 History powder olanzapine 2.5 mg tablet 2.5 mg PO HS 01/21/25 01/21/25 History ondansetron 8 mg disintegrating 8 mg PO Q8H PRN N/V 01/21/25 01/21/25 History tablet prochlorperazine maleate 10 mg 10 mg PO Q6H PRN N/V 01/21/25 01/21/25 History tablet Past Med/Surg History Problem List (Updated 01/22/25 @ 02:01 by Kaylin Gallegos DO) Vascular occlusion Peritoneal carcinomatosis (Acute) Primary cancer of ovary with widespread metastatic disease (Acute) Ascites Elevated troponin (Acute) Pleural effusion Thrombocytosis Bilateral edema of lower extremity (Acute) Asthma exacerbation (Acute) Elevated troponin (Acute) Chest pain (Acute) Dyspnea (Acute) Status post gastric bypass for obesity Allergic rhinitis due to dust mite (Chronic) Allergic rhinitis due to animal hair and dander (Chronic) Peripheral neuropathy Seasonal allergies Medical History Hypertension Hypothyroidism COPD (chronic obstructive pulmonary disease) Mild tricuspid regurgitation Mild mitral regurgitation Severe persistent asthma Type 2 diabetes mellitus Anemia Dyslipidemia Non-proliferative diabetic retinopathy Stage III chronic kidney disease Venous insufficiency Family History Mother Hypertension Diabetes Father Diabetes Denies family history of Kidney disease Social History Smoking Status: Unknown if ever smoked Tobacco Type: Cigarettes Age Started Using Tobacco: 21; Age Quit Using Tobacco: 63; packs per day: 2; Do You Dip or Chew Tobacco: No; Hx Alcohol Use: No Hx Substance Use: No Preferred Language: Kenyan Communication Ability: Effective Visual Impairment: No Limitations Hearing Ability: Normal 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 Beliefs That Will Affect Care: None marital status: Current Living Situation: Alone current occupational status: disabled How many Children do You have: 0 Feels Safe at Home: Yes Diet: regular caffeine: Yes (2 coffees daily) Dental Care, Regularly: No Physical Activity Frequency: Does not Exercise Seatbelt Use: always Sunscreen Use: No Do you think of yourself as: straight/heterosexual Gender Identity: Female Assistive Devices: Walker Review of Systems Review of Systems: All systems reviewed & are unremarkable except as noted in HPI & below Physical Exam Physical Exam: General: ill in appearance, NAD, AA&O x 4 Skin: warm, dry, intact, scattered bruising on abdomen HEENT: NC/AT, PERRL, EOMI, anicteric sclera, conjunctiva without injection, external ear normal to inspection and nontender, nares patent, dry mucus membranes, dentition intact, no oropharyngeal lesions, neck supple, trachea m idline, no LAD, no thyromegaly, no JVD Heart: +S1/S2, regular, no m/r/g Lungs: equal air entry bilaterally, diffuse wheezing bilaterally with diminished breath sounds in bilateral bases. Abd: +BS, soft, distended with ascites, soft, tender to palpation, bruising present Ext: 3+ edema of bilateral LE, RLE cool to touch with no palpable pulses, pulses present in LLE Neuro: nonfocal, patient AA&O x 4, speech intact, no facial droop, moving all extremities on command with equal strength 5/5 Results & Data Results & Data Vital Signs (Past 12 Hours) Vital Signs Temp Pulse Resp BP Pulse Ox O2 Del Method 01/21/25 21:27 98 H 21 96 01/21/25 21:03 97 H 26 H 95 01/21/25 21:00 116/72 01/21/25 21:00 116/72 01/21/25 21:00 116/72 01/21/25 20:48 97 H 18 96 01/21/25 20:45 97 H 18 95 01/21/25 20:33 98 H 21 93 01/21/25 20:30 105/70 01/21/25 20:30 105/70 01/21/25 20:21 98 H 12 01/21/25 20:21 124/69 01/21/25 20:21 124/69 01/21/25 20:21 124/69 01/21/25 19:00 101 H 19 99/60 L 97 01/21/25 18:01 98 H 19 134/75 95 01/21/25 17:00 102 H 26 H 113/69 97 01/21/25 15:54 103 H 19 114/80 95 01/21/25 14:51 99 H 18 111/70 94 01/21/25 14:05 98 H 22 97 Room Air 01/21/25 13:54 98 H 01/21/25 13:08 96 Room Air 01/21/25 13:08 36.9 C 100 H 22 106/61 96 Room Air Laboratory Results Laboratory Results WBC 11.17 K/ul (4.8-10.8) H 01/21/25 15:00 RBC 4.48 M/uL (4.20-5.40) 01/21/25 15:00 Hgb 12.3 g/dl (12.0-16.0) 01/21/25 15:00 Hct 38.7 % (37.0-47.0) 01/21/25 15:00 MCV 86.4 fL (80.0-100.0) 01/21/25 15:00 MCH 27.5 pg (25.0-34.0) 01/21/25 15:00 MCHC 31.8 g/dL (32.0-36.0) L 01/21/25 15:00 RDW Std Deviation 54.9 fL (36.4-46.3) H 01/21/25 15:00 RDW Coeff of Sol 17.4 % (11.5-14.5) H 01/21/25 15:00 Plt Count 310 K/uL (130-400) 01/21/25 15:00 MPV 10.0 fL (9.4-12.4) 01/21/25 15:00 Immature Gran % (Auto) 0.4 % 01/21/25 15:00 Neut % (Auto) 94.8 % 01/21/25 15:00 Lymph % (Auto) 3.9 % 01/21/25 15:00 [place] % (Auto) 0.7 % 01/21/25 15:00 Eos % (Auto) 0.2 % 01/21/25 15:00 Baso % (Auto) 0.0 % 01/21/25 15:00 Neut # (Auto) 10.58 K/uL (1.40-6.50) H 01/21/25 15:00 Lymph # (Auto) 0.44 K/uL (1.20-3.40) L 01/21/25 15:00 [place] # (Auto) 0.08 K/uL (0.11-0.59) L 01/21/25 15:00 Eos # (Auto) 0.02 K/uL (0.00-0.50) 01/21/25 15:00 Baso # (Auto) 0.00 K/uL (0.00-0.20) 01/21/25 15:00 Immature Gran # (Auto) 0.05 K/uL (0.01-0.20) 01/21/25 15:00 Absolute Nucleated RBC 0.02 K/uL (0.00-0.12) 01/21/25 15:00 Nucleated RBC % (auto) 0.2 % 01/21/25 15:00 Toxic Vacuolation 1+ 01/21/25 15:00 Target Cells 1+ 01/21/25 15:00 PT 14.6 Seconds (9.0-12.0) H 01/21/25 15:00 INR 1.4 (0.9-1.1) H 01/21/25 15:00 APTT 31 Seconds (21-31) 01/21/25 15:00 PTT Ratio 1.2 01/21/25 15:00 Sodium 137 mmol/L (136-145) 01/21/25 15:00 Potassium 3.8 mmol/L (3.5-5.1) 01/21/25 15:00 Chloride 102 mmol/L (98-107) 01/21/25 15:00 Carbon Dioxide 34 mmol/L (21-32) H 01/21/25 15:00 Anion Gap 1 (3-11) L 01/21/25 15:00 BUN 49 mg/dl (6-23) H 01/21/25 15:00 Creatinine 1.07 mg/dl (0.6-1.2) 01/21/25 15:00 Est Cr Clr Drug Dosing 47.5 ml/min 01/21/25 15:00 eGFR 56.93 01/21/25 15:00 BUN/Creatinine Ratio 45.8 (10-20) H 01/21/25 15:00 Glucose 87 mg/dl (70-99(Fasting)) 01/21/25 15:00 POC Glucose 119 mg/dl (70-99) H 01/21/25 23:58 Lactate 1.3 mmol/L (0.4-2.0) 01/22/25 00:00 Calcium 8.3 mg/dl (8.6-10.3) L 01/21/25 15:00 Phosphorus 3.1 mg/dl (2.5-4.9) 01/21/25 15:00 Magnesium 2.1 mg/dl (1.7-2.4) 01/21/25 15:00 Total Bilirubin 1.0 mg/dl (0.2-1.0) 01/21/25 15:00 AST 245 U/L (13-39) H 01/21/25 15:00 ALT 145 U/L (7-52) H 01/21/25 15:00 Alkaline Phosphatase 339 U/L (34-104) H 01/21/25 15:00 Troponin I High Sens 229.6 pg/ml (0-14) H* D 01/21/25 19:00 B-Natriuretic Peptide 243 pg/ml (0-100) H 01/21/25 15:00 Total Protein 5.3 gm/dl (6.0-8.3) L 01/21/25 15:00 Albumin 2.6 gm/dl (3.4-5.0) L 01/21/25 15:00 Globulin 2.7 gm/dl (2.5-4.0) 01/21/25 15:00 Albumin/Globulin Ratio 1.0 (0.9-2) 01/21/25 15:00 Lipase 11 U/L (11-82) 01/21/25 15:00 Procalcitonin 0.61 ng/ml (0-0.5) H 01/21/25 15:00 TSH 4.667 uIu/ml (0.300-4.500) H 01/21/25 15:00 Free T4 1.05 ng/dl (0.61-1.60) 01/21/25 15:00 Urine Color Yellow 01/21/25 21:40 Urine Appearance Clear (Clear) 01/21/25 21:40 Urine pH 5.0 (4.5-7.5) 01/21/25 21:40 Ur Specific [place] 1.025 (1.000-1.030) 01/21/25 21:40 Urine Protein Negative (Negative) 01/21/25 21:40 Urine Glucose (UA) Negative (Negative) 01/21/25 21:40 Urine Ketones Negative (Negative) 01/21/25 21:40 Urine Blood Trace (Negative) H 01/21/25 21:40 Urine Nitrite Negative (Negative) 01/21/25 21:40 Urine Bilirubin Negative (Negative) 01/21/25 21:40 Urine Urobilinogen Negative (Negative) 01/21/25 21:40 Ur Leukocyte Esterase Negative (Negative) 01/21/25 21:40 Urine WBC (Auto) 0-5 /hpf (0-5) 01/21/25 21:40 Urine RBC (Auto) 3-5 /hpf (0-2) H 01/21/25 21:40 U Hyaline Cast (Auto) 0-2 /lpf (0-2) 01/21/25 21:40 U Epithel Cells (Auto) 3-5 /hpf (0-2) H 01/21/25 21:40 Urine Bacteria (Auto) None Seen (None Seen) 01/21/25 21:40 Adenovirus (PCR) Not Detected (NotDetected) 01/21/25 14:00 B. pertussis DNA (PCR) Not Detected (NotDetected) 01/21/25 14:00 B.parapertussis DNA PCR Not Detected (NotDetected) 01/21/25 14:00 C. pneumoniae DNA (PCR) Not Detected (NotDetected) 01/21/25 14:00 Coronavirus OC43 (PCR) Not Detected (NotDetected) 01/21/25 14:00 Coronavirus HKU1 (PCR) Not Detected (NotDetected) 01/21/25 14:00 Coronavirus 229E (PCR) Not Detected (NotDetected) 01/21/25 14:00 SARS-CoV-2 (PCR) Not Detected (NotDetected) 01/21/25 14:00 Coronavirus NL63 (PCR) Not Detected (NotDetected) 01/21/25 14:00 Human Metapneumovir PCR Not Detected (NotDetected) 01/21/25 14:00 Influenza Type A (PCR) Not Detected (NotDetected) 01/21/25 14:00 Influenza Type B (PCR) Not Detected (NotDetected) 01/21/25 14:00 M. pneumoniae (PCR) Not Detected (NotDetected) 01/21/25 14:00 Parainfluenza 1 (PCR) Not Detected (NotDetected) 01/21/25 14:00 Parainfluenza 2 (PCR) Not Detected (NotDetected) 01/21/25 14:00 Parainfluenza 3 (PCR) Not Detected (NotDetected) 01/21/25 14:00 Parainfluenza 4 (PCR) Not Detected (NotDetected) 01/21/25 14:00 RSV (PCR) Not Detected (NotDetected) 01/21/25 14:00 Entero/Rhino (PCR) Not Detected (NotDetected) 01/21/25 14:00 Impressions Chest X-Ray 01/21/25 13:20 XR chest 1V portable CLINICAL HISTORY: Chest pain, nonspecific COMPARISON STUDY: 01/02/2025 FINDINGS: Heart size and pulmonary vasculature are normal. There are small bilateral pleural effusions and associated lung base consolidation, improved on the left and stable on the right. No pneumothorax. IMPRESSION: Bilateral pleural effusions, improved on the left and stable on the right. ACT 112: Negative or not required by law. Electronically signed by: Oneil Kirby M.D. 01/21/2025 1:37 PM Aorta w/Runoff CTA 01/21/25 16:18 EXAM: CT ang AA runof w frank khoury CLINICAL HISTORY: OvCA perit carcinomatosis, Absent R pedal pulses. TECHNIQUE: CT Angiography of abdominal aorta, bilateral iliac and femoropopliteal arterial trees with IV contrast administration. 119ml Optiray 320 One of these 3D techniques was utilized: Maximum Intensity Pixel (MIP), 3D Reconstructed Images, Volume Rendered Images, Surface Shaded Rendering. One of the following dose reduction techniques was utilized for this exam: Automated exposure control, adjustment of the mA and/or kV according to patient size, and use of iterative reconstruction. COMPARISON: Comoared to prior CT 01/02/2025 FINDINGS: Diffuse increase in intimal medial thickness of all examined arteries with no significant stenosis except at the right common iliac artery reaching 75 %. Aorta: The abdominal aorta is normal in caliber. No evidence of aneurysm, dissection, or significant atherosclerotic changes. Aortic bifurcation is unremarkable. Renal Arteries: Renal arteries are normal in size and opacification. No evidence of stenosis or occlusion. Symmetric perfusion of both kidneys. Mesenteric Arteries: Superior mesenteric artery (SMA) and inferior mesenteric artery (RAJNI) are normal in caliber and opacification. No evidence of stenosis or occlusion. Celiac Artery: Celiac artery is normal in caliber and opacification. No evidence of stenosis or occlusion. Iliac Arteries: Common, internal, and external iliac arteries are normal in caliber and opacification. No evidence of stenosis, aneurysm, or occlusion. 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 Femoral Arteries: Common femoral arteries are normal in caliber and opacification. No evidence of stenosis or occlusion. Superficial and deep femoral arteries are normal in appearance. Popliteal Arteries: Popliteal arteries are normal in caliber and opacification. No evidence of stenosis or occlusion. Tibial Arteries: Anterior tibial, posterior tibial, and peroneal arteries are normal in caliber and opacification. No evidence of stenosis or occlusion. Venous Structures: Inferior vena cava (IVC) and major venous structures are normal in caliber and opacification. No evidence of thrombus or obstruction. Liver: Normal size and morphology. Homogeneous enhancement post-contrast. No focal hepatic lesions. Gallbladder and Biliary System: Chlecywtetcomy clips. Dilated intrahepatic and extrahepatic biliary channels. reach CBD 12 mm. Pancreas: Normal size and contour. Homogeneous enhancement post-contrast. No masses or cystic lesions. Spleen: Normal size and appearance. Homogeneous enhancement post-contrast. Adrenal Glands: Normal size and morphology bilaterally. No adrenal masses. Kidneys and Ureters: Normal size, shape, and position of both kidneys. Homogeneous enhancement post-contrast. No renal stones, masses, or hydronephrosis. Ureters are unremarkable. Bladder: Normal in size and wall thickness. No intraluminal masses. Bilateral complex adenxal cystic masses. Normal enhancement post-contrast. Bowel: Normal appearance of the visualized bowel loops. No evidence of obstruction, wall thickening, or abnormal dilatation. Lymph Nodes: No pathologically enlarged lymph nodes in the abdomen or pelvis. Peritoneum: Marked amount of free fluid in abdomen and pelvis with multiple nodules and enhancing omental deposits, largest anterior to the spleen measuring about 10x5.5 cm. Bones: No lytic or sclerotic lesions. Normal alignment and bone density. Soft Tissues: Normal appearance of the visualized soft tissues. IMPRESSION: 1. 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 2. 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 with marked ascites, and enhancing omental deposits, largest anterior to the spleen measuring about 10x5.5 cm., suggest clinical assessment, and tumor markers (unchanged) 3. Dilated intrahepatic and extrahepatic biliary channels. reach CBD 12 mm. Suggest MRCP and clinical assessment (new) Electronically signed by Nohemy Leahy 01-21-2025 8:08 PM Chest CTA 01/21/25 16:18 EXAM: CT angio chest PE protocol CLINICAL HISTORY: SOB, OvCA peritoneal carcinomatosis, r/o PE TECHNIQUE: CT angiography of the chest was performed with the administration of intravenous contrast with the following protocol: axial images with, reconstructed coronal and sagittal images. The contrast-enhanced images were acquired in arterial and venous phases. Intravenous contrast was administered using automated injection techniques. Bolus tracking was employed to optimize arterial phase imaging. One of these 3D techniques was utilized: Maximum Intensity Pixel (MIP), 3D Reconstructed Images, Volume Rendered Images, Surface Shaded Rendering. One of the following dose reduction techniques was utilized for this exam: Automated exposure control, adjustment of the mA and/or kV according to patient size, and use of iterative reconstruction. (CTDI: 23.75 mGy, DLP: 2661.55 mGy*cm) COMPARISON: Comparison is made with 01/02/2025. FINDINGS: Aorta and Great Vessels: Ascending Aorta: Normal in caliber, no aneurysm, dissection, or significant atherosclerosis. Aortic Arch: Normal in caliber, no aneurysm, dissection, or significant atherosclerosis. Descending Aorta: Normal in caliber, no aneurysm, dissection, or significant atherosclerosis. Pulmonary Arteries: The main pulmonary artery and its branches are patent. No evidence of pulmonary embolism or significant stenosis. Heart: Cardiac Chambers: increase cardiac size. Pericardium: No pericardial effusion or thickening. Lungs and Pleura: Bilateral basal consolidations Bilateral moderate pleural effusion with passive atelectasis. Slight compressed lower trachea and bronchi with patent lumen. Mediastinum: No mediastinal mass or abnormal lymphadenopathy. Normal appearance of the trachea and central bronchi. Hilar Structures: Hilar structures are normal without enlargement. Chest Wall: No mass lesions or abnormalities in the chest wall. Vascular Structures: Superior Vena Cava: Patent without evidence of stenosis or thrombus. Inferior Vena Cava: Patent without evidence of stenosis or thrombus. Bones and Soft Tissues: No fractures, lytic, or blastic lesions of the visualized bony structures. Thoracic spondylosis. Soft tissues are unremarkable. IMPRESSION: 1. No pulmonary embolism at the time of the scan. (unchanged) 2. Bilateral moderate pleural effusion with compression collapse of both posterior segments of both lower lobes. (unchanged) 3. Slight compressed lower trachea and bronchi with patent lumen. (unchanged) suggests clinical assessment. 4. Cardiomegaly. (unchanged) Electronically signed by Nohemy Leahy 01-21-2025 7:47 PM Duplex Scan Lower Extremity Artery 01/21/25 18:09 Exam(s): US ARTERIAL RIGHT LOWER EXTREMITY EXAM: US Duplex Right Lower Extremity Arteries CLINICAL HISTORY: Absent right pedal pulses. TECHNIQUE: Real-time duplex ultrasound scan of the right lower extremity arteries integrating B-mode two-dimensional vascular structure, Doppler spectral analysis and color flow Doppler imaging. COMPARISON: No relevant prior studies available. 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 There is multiphasic wave forms of the peak systolic velocity of 72 cm/s. Right superficial femoral artery: The superficial femoral artery is patent with atherosclerotic disease and multiphasic waveforms, with the peak systolic velocities measuring 104 cm/s proximally, 107 cm at the mid segment and 77 cm/s distally. Right popliteal artery: The right popliteal artery demonstrates monophasic waveforms with a peak systolic velocity of between 30-40 cm/s. Right calf/foot arteries: The right posterior tibial artery is not well delineated. No arterial flow noted in this region. The peroneal artery is not clearly delineated. The proximal right anterior tibial artery is patent with monophasic waveforms and peak systolic velocity of 24 cm/s. The mid to distal anterior tibial artery are not clearly delineated and may be occluded. The dorsalis pedis artery is not definitively delineated sonographically. Other arteries: The proximal right profunda femoral artery is patent with biphasic waveforms in the peak systolic velocity of 64 cm/s. Soft tissues: Subcutaneous edema noted at the calf. IMPRESSION: 1. The proximal right anterior tibial artery is patent with monophasic waveforms and peak systolic velocity of 24 cm/s. The mid to distal anterior tibial artery are not clearly delineated and may be occluded. The peroneal and posterior tibial arteries are not identified. The dorsalis pedis artery is not clearly delineated and may be occluded. Recommend further evaluation with CTA or conventional angiography, as clinically indicated. 2. Atherosclerotic disease from the common femoral through the superficial femoral arteries. No elevated velocities to suggest a focal hemodynamic stenosis. The popliteal artery demonstrates monophasic waveforms, but is patent. Electronically signed by: Pato Aldana MD 01/21/25 21:20 PM Venous Doppler Study 01/21/25 18:09 Exam(s): US VENOUS BILATERAL LOWER EXTREMITIES EXAM: US Duplex Bilateral Lower Extremities Veins CLINICAL HISTORY: BLE edema. TECHNIQUE: Real-time duplex ultrasound scan of the bilateral lower extremity veins integrating B-mode two-dimensional vascular structure, Doppler spectral analysis, color flow Doppler imaging and compression. COMPARISON: No relevant prior studies available. FINDINGS: Limitations: Evaluation is reportedly limited by underlying edema. Right deep veins: Unremarkable. No DVT in the right common femoral, femoral, proximal deep femoral or popliteal veins. The veins demonstrate normal color flow, are normally compressible, with normal phasic flow and/or augmentation response. The interrogated calf veins are patent. Right superficial veins: Unremarkable. No thrombus in the saphenofemoral junction. Left deep veins: Unremarkable. No DVT in the left common femoral, femoral, proximal deep femoral or popliteal veins. The veins demonstrate normal color flow, are normally compressible, with normal phasic flow and/or augmentation response. The interrogated calf veins are patent. Left superficial veins: Unremarkable. No thrombus in the saphenofemoral junction. Soft tissues: Diffuse subcutaneous fat stranding noted, most prominent from the knees distally. No loculated fluid collection. No popliteal cyst. IMPRESSION: 1. No evidence for deep vein thrombosis involving the bilateral lower extremities. 2. Bilateral subcutaneous edema. Electronically signed by: Pato Aldana MD 01/21/25 21:16 PM PG Care Time/CCT Total # of Minutes Spent Total Time Spent with Patient: Total time spent is greater than 50% in coordination of care (as documented) at patient's floor/unit and/or counseling patient: Coding Level of Care Code 33354 INT INP/OBS CARE 3/75MIN Diagnoses Asthma exacerbation J45.901 Vascular occlusion I99.8 Primary cancer of ovary with widespread metastatic disease C56.9; C80.0 Elevated troponin R79.89 Pleural effusion J90 Hypothyroidism E03.9 Type 2 diabetes mellitus E11.9
[2025-01-21] MEDS: HEPARIN SOD (PORCINE) 1000 UNIT/ML IV ONE (22:44)
[2025-01-21] MEDS: HEPARIN 25000 UNIT/500 ML D5W 25,000 UNITS/500 ML BAG IV SCH (22:45)
[2025-01-21] MEDS: OLANZAPINE 2.5 MG TAB PO STA (23:12)
[2025-01-21] MEDS: FUROSEMIDE INJ 20 MG/2 ML VIAL IV STA (23:13)
[2025-01-21] MEDS: clonazePAM 0.5 MG TAB PO STA (23:13)
[2025-01-21] MEDS: BENZONATATE 100 MG CAPSULE PO STA (23:13)
[2025-01-22] MEDS: HYDROcodone/HOMATROPINE SYRUP 5MG/1.5MG 5ML UDP PO STA (01:24)
[2025-01-22] MEDS ORDERED: CARBOHYDRATES FOR HYPOGLYCEMIA PO PRN (04:57)
[2025-01-22] MEDS ORDERED: GLUCOSE 40% GEL 15 GM TUBE PO PRN (04:57)
[2025-01-22] MEDS ORDERED: GLUCAGON FOR INJ 1 MG VIAL SQ PRN (04:57)
[2025-01-22] MEDS ORDERED: GLUCOSE 10 TAB/TUBE PO PRN (04:57)
[2025-01-22] MEDS ORDERED: DEXTROSE 50% 50 ML SYRINGE IV PRN (04:57)
[2025-01-22] MEDS: MoRPHine SULFATE 2 MG/ML CARP IV PRN (05:28)
[2025-01-22] MEDS: clonazePAM 0.5 MG TAB PO SCH (05:37)
[2025-01-22] MEDS: ALBUTEROL 0.5% NEB SOLN 2.5 MG/0.5 ML VIAL NEB PRN (05:51)
[2025-01-22] MEDS: PIPERACILLIN/TAZOBACTAM 4.5 GM/100 ML BAG IV SCH (05:54)
[2025-01-22] MEDS: LEVOTHYROXINE SODIUM 50 MCG TABLET PO SCH (06:06)
[2025-01-22 06:24] LABS: ANTI-Xa, UFH(UnfractionatedHep 0.35 IU/ml (0.3-0.7)
[2025-01-22] MEDS: ALBUT/IPRATROP 3MG/0.5MG NEB 3 ML VIAL INH SCH (07:17)
[2025-01-22] MEDS ORDERED: ALBUT/IPRATROP 3MG/0.5MG NEB 3 ML VIAL INH SCH (09:00)
[2025-01-22] MEDS: INSULIN ASPART PER UNIT CHARGE SC SCH (09:21)
--- NOTE | 2025-01-22 09:30 | Consultation ---
Date of Consultation January 22, 2025 Assessment & Plan (1) Ischemic foot: Pt with ischemic RLE, unknown how long. Minimal toe movement. Pt c/o numbness of RLE, possibly for weeks. Pain in RLE with movement and touch. CTA demonstrates R iliac occlusion and infrapop occlusions with minimal runoff to foot. Clinically, foot is ischemic. Pt discussed with Dr Grimes, recommends pt undergo emergent RLE thrombectomy, possible angiography with intervention. Due to mild pt confusion, discussed with pt sister, who wants to talk to pt's oncologist before agreeing to surgery. Advised sister that this is an emergency and needs to be done damon, she states she will contact when she has made a decision. Patient was seen, examined, and chart reviewed. Agree with exam and treatment plan of the Vascular PA. History of Present Illness Reason for Consultation: RLE ischemia Attending Physician: Candice Bañuelos MD History of Present Illness 69 yo f with hx of metastatic ovarian ca, COPD, DMII, hypothyroidism, hypercholesterolemia, admitted with SOB, seen in consultation today for RLE ischemia. Pt is a poor historian, states she has had significant numbness in RLE for "weeks," mild pain. States she ambulates "a little." Currently undergoing chemo for her metastatic ca, and going to have eval for debulking surgery. Pt known to have carcinomatosis, positive paracentesis and thoracentesis, splenic met, and iliac crest lesion. Pt admits BARDALES, orthopnea, fatigue. Denies LUCAS, fever, chest pain, abd pain, N/V, other complaints. CTA imaging demonstrates R iliac art occlusion, distal pop occlusion, minimal runoff. Allergies Allergy/AdvReac Type Severity Reaction Status Date / Time metformin Allergy Severe Verified 01/01/25 18:29 cashew nut Allergy Verified 01/04/25 12:54 hazelnut Allergy Verified 01/04/25 12:54 nut - unspecified Allergy Verified 01/04/25 12:54 peanut Allergy Verified 01/04/25 12:54 peanut oil Allergy Verified 01/04/25 12:54 pecan nut Allergy Verified 01/04/25 12:54 aspirin AdvReac Difficulty Verified 01/01/25 18:29 Breathing Home Medications Medication Instructions Recorded Confirmed Type fenofibrate micronized 200 mg 200 mg PO QPM 06/19/19 01/21/25 History capsule multivitamin 1 tab PO QAM 06/19/19 01/21/25 History simvastatin 20 mg tablet 20 mg PO QAM #90 tabs 07/10/20 01/21/25 History albuterol sulfate 0.63 mg/3 mL 0.63 mg (3 mL) continuous 12/05/24 01/21/25 Rx solution for nebulization nebulization Q4H PRN shortness of breath or wheezing #90 mL levothyroxine 50 mcg tablet 50 mcg PO DAILY 12/05/24 01/21/25 History benzonatate 100 mg capsule 100 mg PO TID PRN cough #30 caps 12/13/24 01/21/25 Rx furosemide 20 mg tablet 20 mg PO QAM 12/20/24 01/21/25 History clonazepam 0.5 mg tablet 0.5 mg PO BID 12/25/24 01/21/25 History insulin glargine 100 unit/mL (3 16 unit subcut QAM 12/25/24 01/21/25 History mL) subcutaneous pen (Lantus Solostar U-100 Insulin) insulin lispro 100 unit/mL 4 unit subcut WM 12/25/24 01/21/25 History subcutaneous pen (Humalog KwikPen (U-100) Insulin) ipratropium 20 mcg-albuterol 100 1 puff inhalation QID 12/25/24 01/21/25 History mcg/actuation mist for inhalation (Combivent Respimat) tezepelumab-ekko 210 mg/1.91 mL 210 mg subcut UD 12/25/24 01/21/25 History (110 mg/mL) subcutaneous pen injector (Tezspire) tiotropium bromide 18 mcg capsule 18 mcg inhalation QAM 12/25/24 01/21/25 History with inhalation device brexpiprazole 3 mg tablet (Rexulti) 3 mg PO QPM 01/01/25 01/21/25 History fluoxetine 40 mg capsule 80 mg PO DAILY 01/01/25 01/21/25 History acetaminophen 325 mg tablet 650 mg PO Q4 PRN Fever Or Pain 01/21/25 01/21/25 History budesonide 180 mcg/actuation 1 inh inhalation BID 01/21/25 01/21/25 History breath activated powder inhaler (Pulmicort Flexhaler) cholecalciferol (vitamin D3) 25 25 mcg PO QAM 01/21/25 01/21/25 History mcg (1,000 unit) capsule (Vitamin D3) ipratropium 0.5 mg-albuterol 3 mg 3 ml inhalation QID 01/21/25 01/21/25 History (2.5 mg base)/3 mL nebulization soln loperamide 2 mg tablet (Imodium 2 mg PO Q6H PRN Diarrhea 01/21/25 01/21/25 History A-D) montelukast 10 mg tablet 10 mg PO HS 01/21/25 01/21/25 History (Singulair) nystatin 100,000 unit/gram topical 1 applic topical UD 01/21/25 01/21/25 History powder olanzapine 2.5 mg tablet 2.5 mg PO HS 01/21/25 01/21/25 History ondansetron 8 mg disintegrating 8 mg PO Q8H PRN N/V 01/21/25 01/21/25 History tablet prochlorperazine maleate 10 mg 10 mg PO Q6H PRN N/V 01/21/25 01/21/25 History tablet Patient History Medical History Hypertension Hypothyroidism COPD (chronic obstructive pulmonary disease) Mild tricuspid regurgitation Mild mitral regurgitation Severe persistent asthma Type 2 diabetes mellitus Anemia Dyslipidemia Non-proliferative diabetic retinopathy Stage III chronic kidney disease Venous insufficiency Family History Mother Hypertension Diabetes Father Diabetes Denies family history of Kidney disease Social History Smoking Status: Unknown if ever smoked Tobacco Type: Cigarettes Age Started Using Tobacco: 21; Age Quit Using Tobacco: 63; packs per day: 2; Do You Dip or Chew Tobacco: No; Hx Alcohol Use: No Hx Substance Use: No Preferred Language: [place]i Communication Ability: Effective Visual Impairment: No Limitations Hearing Ability: Normal Poultry Hanger Required: Yes Beliefs That Will Affect Care: None marital status: Current Living Situation: Alone current occupational status: disabled How many Children do You have: 0 Feels Safe at Home: Yes Diet: regular caffeine: Yes (2 coffees daily) Dental Care, Regularly: No Physical Activity Frequency: Does not Exercise Seatbelt Use: always Sunscreen Use: No Do you think of yourself as: straight/heterosexual Gender Identity: Female Assistive Devices: Walker Review of Systems Review of Systems: All systems reviewed & are unremarkable except as noted in HPI & below Physical Exam Constitutional: WD/WN, vitals as above + ill appearing, + obese and + frail appearing; not in distress Respiratory: normal respiratory effort; no respiratory distress Auscultation: + diminished lung sounds, + crackles and + wheezes Cardiovascular: Rate/Rhythm: regular rate and regular rhythm Vessels: posterior tibial pulses present (LLE easily dopplerable. RLE no doppler) and dorsalis pedis pulses present (LLE easily dopplerable. RLE no doppler); + abnormal peripheral pulses Extremities: + pedal edema and + edema (+4); + abnormal capillary refill (RLE mottled, no refill) Gastrointestinal (Abdomen): Inspection/Auscultation: + abdominal edema Percussion/Palpation: abdomen soft and + ascites; abdomen nontender Skin: + mottling (RLE, cold to ankle) Neurologic: moves all extremities (RLE toes decreased movement), awake and + confused (mild, slow to process); no focal motor deficits Psychiatric: Orientation: alert, oriented to person, oriented to place and cooperative; + not oriented to time Results & Data Vital Signs (Past 12 Hours) Vital Signs Pulse Pulse Resp BP Pulse Ox O2 Del Method 01/22/25 07:33 91 H 01/22/25 07:17 93 H 16 94 Room Air 01/22/25 05:00 95 H 24 106/77 97 Room Air 01/22/25 04:00 93 H 24 117/81 97 Room Air 01/22/25 02:19 84 01/22/25 02:09 88 22 129/74 97 Room Air 01/21/25 23:26 93 H 22 100/63 97 Room Air 01/21/25 22:15 109 H 01/21/25 21:27 98 H 21 96
[2025-01-22] MEDS: FLUoxetine HCL 20 MG CAP PO SCH (09:33)
[2025-01-22] MEDS: FUROSEMIDE INJ 20 MG/2 ML VIAL IV SCH (09:34)
[2025-01-22] MEDS: SIMVASTATIN 20 MG TAB PO SCH (09:34)
[2025-01-22] MEDS: LANTUS PER UNIT CHARGE SQ SCH ×2 (09:34→18:42)
[2025-01-22] MEDS: predniSONE 20 MG TAB PO SCH (09:35)
[2025-01-22] MEDS: FLUTICASONE FUROATE 200MCG 14 PUFFS/INHALER INH SCH (09:37)
[2025-01-22] MEDS: MoRPHine SULFATE 4 MG/ML 1 ML CARP\\VIAL IV PRN (09:37)
--- NOTE | 2025-01-22 09:51 | Anesthesiology Consultation ---
Date of Service January 22, 2025 Assessment & Plan Chart Review Chart Review: Acceptable Risk for Surgery and Patient NOT seen in Pre Admission Testing Consults Requested none ASA [id number] Proposed Anesthesia Anesthesia Type: General Anesthesia Line Insertion: Arterial line History Surgery Operation Date: 01/22/25 09:40 Proposed Procedures p Right Lower Extremity Mechanical Thrombectomy, Possible CURING SUPERVISOR Stenting - Ismael Grimes MD Height/Weight Height: 4 ft 9 in Weight: 93.1 kg Allergies Allergy/AdvReac Type Severity Reaction Status Date / Time metformin Allergy Severe Verified 01/01/25 18:29 cashew nut Allergy Verified 01/04/25 12:54 hazelnut Allergy Verified 01/04/25 12:54 nut - unspecified Allergy Verified 01/04/25 12:54 peanut Allergy Verified 01/04/25 12:54 peanut oil Allergy Verified 01/04/25 12:54 pecan nut Allergy Verified 01/04/25 12:54 aspirin AdvReac Difficulty Verified 01/01/25 18:29 Breathing Medications Home Medications Medication Instructions Recorded Confirmed Last Taken fenofibrate micronized 200 mg 200 mg PO QPM 06/19/19 01/21/25 Unknown capsule multivitamin 1 tab PO QAM 06/19/19 01/21/25 Unknown simvastatin 20 mg tablet 20 mg PO QAM #90 tabs 07/10/20 01/21/25 Unknown albuterol sulfate 0.63 mg/3 mL 0.63 mg (3 mL) continuous 12/05/24 01/21/25 Unknown solution for nebulization nebulization Q4H PRN shortness of breath or wheezing #90 mL levothyroxine 50 mcg tablet 50 mcg PO DAILY 12/05/24 01/21/25 Unknown benzonatate 100 mg capsule 100 mg PO TID PRN cough #30 caps 12/13/24 01/21/25 Unknown furosemide 20 mg tablet 20 mg PO QAM 12/20/24 01/21/25 Unknown clonazepam 0.5 mg tablet 0.5 mg PO BID 12/25/24 01/21/25 Unknown insulin glargine 100 unit/mL (3 16 unit subcut QAM 12/25/24 01/21/25 Unknown mL) subcutaneous pen (Lantus Solostar U-100 Insulin) insulin lispro 100 unit/mL 4 unit subcut WM 12/25/24 01/21/25 Unknown subcutaneous pen (Humalog KwikPen (U-100) Insulin) ipratropium 20 mcg-albuterol 100 1 puff inhalation QID 12/25/24 01/21/25 Unknown mcg/actuation mist for inhalation (Combivent Respimat) tezepelumab-ekko 210 mg/1.91 mL 210 mg subcut UD 12/25/24 01/21/25 Unknown (110 mg/mL) subcutaneous pen injector (Tezspire) tiotropium bromide 18 mcg capsule 18 mcg inhalation QAM 12/25/24 01/21/25 Unknown with inhalation device brexpiprazole 3 mg tablet (Rexulti) 3 mg PO QPM 01/01/25 01/21/25 Unknown fluoxetine 40 mg capsule 80 mg PO DAILY 01/01/25 01/21/25 Unknown acetaminophen 325 mg tablet 650 mg PO Q4 PRN Fever Or Pain 01/21/25 01/21/25 Unknown budesonide 180 mcg/actuation 1 inh inhalation BID 01/21/25 01/21/25 Unknown breath activated powder inhaler (Pulmicort Flexhaler) cholecalciferol (vitamin D3) 25 25 mcg PO QAM 01/21/25 01/21/25 Unknown mcg (1,000 unit) capsule (Vitamin D3) ipratropium 0.5 mg-albuterol 3 mg 3 ml inhalation QID 01/21/25 01/21/25 Unknown (2.5 mg base)/3 mL nebulization soln loperamide 2 mg tablet (Imodium 2 mg PO Q6H PRN Diarrhea 01/21/25 01/21/25 Unknown A-D) montelukast 10 mg tablet 10 mg PO HS 01/21/25 01/21/25 Unknown (Singulair) nystatin 100,000 unit/gram topical 1 applic topical UD 01/21/25 01/21/25 Unknown powder olanzapine 2.5 mg tablet 2.5 mg PO HS 01/21/25 01/21/25 Unknown ondansetron 8 mg disintegrating 8 mg PO Q8H PRN N/V 01/21/25 01/21/25 Unknown tablet prochlorperazine maleate 10 mg 10 mg PO Q6H PRN N/V 01/21/25 01/21/25 Unknown tablet Active Medications Generic Name Dose Route Start Last Admin Trade Name Freq PRN Reason Stop Dose Admin Albuterol 2.5 mg 01/22/25 04:57 01/22/25 05:51 Albuterol 0.5% Neb Soln 2.5 Mg/0.5 Ml Vial NEB 02/21/25 04:56 2.5 mg Q2H PRN Administration SOB/Wheeze Protocol Albuterol 3 ml 01/22/25 07:00 01/22/25 07:17 Albut/Ipratrop 3mg/0.5mg Neb 3 Ml Vial INH 02/21/25 06:59 3 ml QIDR BELEN Administration Protocol Clonazepam 0.5 mg 01/22/25 04:57 01/22/25 09:33 Clonazepam 0.5 Mg Tab PO 02/21/25 04:56 0.5 mg BID BELEN Administration Fluoxetine HCl 80 mg 01/22/25 09:00 01/22/25 09:33 Fluoxetine Hcl 20 Mg Cap PO 02/21/25 08:59 80 mg DAILY BELEN Administration Fluticasone Furoate 1 puffs 01/22/25 09:00 01/22/25 09:37 Fluticasone Furoate 200mcg 14 Puffs/Inhaler INH 02/21/25 08:59 1 puffs DAILY BELEN Administration Furosemide 20 mg 01/22/25 09:00 01/22/25 09:34 Furosemide Inj 20 Mg/2 Ml Vial IV 02/21/25 08:59 20 mg DAILY BELEN Administration Heparin Sodium/Dextrose 25,000 units in 500 mls @ 15 mls/hr 01/21/25 21:15 01/21/25 22:45 Heparin 61909 Unit/500 Ml D5w IV 02/20/25 21:14 750 units/hr .Q24H BELEN 15 mls/hr Administration Protocol 750 UNITS/HR Piperacillin Sod/Tazobactam Sod 4.5 gm in 100 mls @ 25 mls/hr 01/22/25 06:00 01/22/25 05:54 Zosyn IV 01/24/25 05:59 25 mls/hr Q8H BELEN Administration Protocol Insulin Aspart 0 units 01/22/25 07:30 01/22/25 09:21 Insulin Aspart Per Unit Charge SC 02/21/25 07:29 Not Given ACHS [facility] Insulin Glargine 8 units 01/22/25 09:00 01/22/25 09:34 Lantus Per Unit Charge SQ 02/21/25 08:59 Not Given BID BELEN Levothyroxine Sodium 50 mcg 01/22/25 06:30 01/22/25 06:06 Levothyroxine Sodium 50 Mcg Tablet PO 02/21/25 06:29 50 mcg DAILYBB BELEN Administration Miscellaneous 1 each 01/22/25 08:00 01/22/25 09:27 Rexulti~Order Awaiting Action N/A 02/21/25 07:59 Not Given QS BELEN Morphine Sulfate 2 mg 01/22/25 04:57 01/22/25 05:28 Morphine Sulfate 2 Mg/Ml Carp IV 02/05/25 04:56 2 mg Q3H PRN Administration Pain (1,2,3,4,5) & Pre PT Morphine Sulfate 4 mg 01/22/25 04:57 01/22/25 09:37 Morphine Sulfate 4 Mg/Ml 1 Ml Carp\Vial IV 02/05/25 04:56 4 mg Q3H PRN Administration Pain (6,7,8,9,10) Simvastatin 20 mg 01/22/25 09:00 01/22/25 09:34 Simvastatin 20 Mg Tab PO 02/21/25 08:59 20 mg QAM BELEN Administration Past Medical History Medical History Hypertension Hypothyroidism COPD (chronic obstructive pulmonary disease) Mild tricuspid regurgitation Mild mitral regurgitation Severe persistent asthma Type 2 diabetes mellitus Anemia Dyslipidemia Non-proliferative diabetic retinopathy Stage III chronic kidney disease Venous insufficiency metastatic ovarian cancer stage 4 Exercise / Class Metabolic Activity III < 4 Walking/Shop/Light housework Past Family History Family History Mother Hypertension Diabetes Father Diabetes Denies family history of Kidney disease Past Anesthesia History No Hx of Anesthesia Complications and No Family Hx of Anesthesia Complications History of PONV No Hx of PONV and No Hx of Motion Sickness Social History Smoking Status: Unknown if ever smoked Do You Dip or Chew Tobacco: No Hx Alcohol Use: No Hx Substance Use: No Physical Exam Vital Signs Last Vital Signs Temp 36.9 C 01/21/25 13:08 Pulse 91 H 01/22/25 07:33 Resp 16 01/22/25 07:17 BP 106/77 01/22/25 05:00 Pulse Ox 94 01/22/25 07:17 O2 Del Method Room Air 01/22/25 07:17 Testing Laboratory Results 01/21/25 15:00 01/21/25 15:00 PT 14.6 Seconds (9.0-12.0) H 01/21/25 15:00 INR 1.4 (0.9-1.1) H 01/21/25 15:00 APTT 31 Seconds (21-31) 01/21/25 15:00 Urine Color Yellow 01/21/25 21:40 Urine Appearance Clear (Clear) 01/21/25 21:40 Urine pH 5.0 (4.5-7.5) 01/21/25 21:40 Ur Specific [place] 1.025 (1.000-1.030) 01/21/25 21:40 Urine Protein Negative (Negative) 01/21/25 21:40 Urine Glucose (UA) Negative (Negative) 01/21/25 21:40 Urine Ketones Negative (Negative) 01/21/25 21:40 Urine Nitrite Negative (Negative) 01/21/25 21:40 Ur Leukocyte Esterase Negative (Negative) 01/21/25 21:40 Urine WBC (Auto) 0-5 /hpf (0-5) 01/21/25 21:40 Urine RBC (Auto) 3-5 /hpf (0-2) H 01/21/25 21:40 U Hyaline Cast (Auto) 0-2 /lpf (0-2) 01/21/25 21:40 U Epithel Cells (Auto) 3-5 /hpf (0-2) H 01/21/25 21:40 Urine Bacteria (Auto) None Seen (None Seen) 01/21/25 21:40 01/22/25 01/21/25 09:08 23:58 POC Glucose 97 119 H Electrocardiogram Date: 01/21/25 Findings: + LVH and + ST @ (@ 101;septal infarct,age ?) Chest X-Ray Date: 01/21/25 Findings: + pleural effusion (bilateral) Echocardiogram Date: 12/26/24 EF: 65% LV Function: normal RWMA: + none Other Findings: + LVH (moderate) Valvular Disease: + no significant valvular disease
--- NOTE | 2025-01-22 10:26 | Oncology Consultation ---
Date of Consultation January 22, 2025 Assessment & Plan (1) Peritoneal carcinomatosis: (2) Ischemic foot: Plan -Patient does not appear to be doing well clinically. This was discussed with her and her sister. She has right ischemic lower extremity. Recommended rechecking CA125 to see if she has had any response to 1 cycle of chemotherapy. However, overall prognosis will depend on improvement in performance status as well as whether intervention for right lower extremity ischemia is possible. If it is not Or tumor marker continues to increase, would recommend consideration for supportive care/hospice. History of Present Illness Reason for Consultation: Ovarian cancer Attending Physician: Candice Bañuelos MD History of Present Illness 69-year-old female recently diagnosed with ovarian cancer for which she status post 1 cycle of chemotherapy with carboplatin/paclitaxel/bevacizumab. Was admitted to [facility] due to concern for ischemic right lower extremity. She was scheduled to undergo open thrombectomy of iliac artery, right lower extremity mechanical thrombectomy of anterior tibial artery, transluminal balloon angioplasty of right anterior tibial artery but unfortunately procedure was not successful. Allergies Allergy/AdvReac Type Severity Reaction Status Date / Time metformin Allergy Severe Verified 01/01/25 18:29 cashew nut Allergy Verified 01/04/25 12:54 hazelnut Allergy Verified 01/04/25 12:54 nut - unspecified Allergy Verified 01/04/25 12:54 peanut Allergy Verified 01/04/25 12:54 peanut oil Allergy Verified 01/04/25 12:54 pecan nut Allergy Verified 01/04/25 12:54 aspirin AdvReac Difficulty Verified 01/01/25 18:29 Breathing Home Medications Medication Instructions Recorded Confirmed Type fenofibrate micronized 200 mg 200 mg PO QPM 06/19/19 01/21/25 History capsule multivitamin 1 tab PO QAM 06/19/19 01/21/25 History simvastatin 20 mg tablet 20 mg PO QAM #90 tabs 07/10/20 01/21/25 History albuterol sulfate 0.63 mg/3 mL 0.63 mg (3 mL) continuous 12/05/24 01/21/25 Rx solution for nebulization nebulization Q4H PRN shortness of breath or wheezing #90 mL levothyroxine 50 mcg tablet 50 mcg PO DAILY 12/05/24 01/21/25 History benzonatate 100 mg capsule 100 mg PO TID PRN cough #30 caps 12/13/24 01/21/25 Rx furosemide 20 mg tablet 20 mg PO QAM 12/20/24 01/21/25 History clonazepam 0.5 mg tablet 0.5 mg PO BID 12/25/24 01/21/25 History insulin glargine 100 unit/mL (3 16 unit subcut QAM 12/25/24 01/21/25 History mL) subcutaneous pen (Lantus Solostar U-100 Insulin) insulin lispro 100 unit/mL 4 unit subcut WM 12/25/24 01/21/25 History subcutaneous pen (Humalog KwikPen (U-100) Insulin) ipratropium 20 mcg-albuterol 100 1 puff inhalation QID 12/25/24 01/21/25 History mcg/actuation mist for inhalation (Combivent Respimat) tezepelumab-ekko 210 mg/1.91 mL 210 mg subcut UD 12/25/24 01/21/25 History (110 mg/mL) subcutaneous pen injector (Tezspire) tiotropium bromide 18 mcg capsule 18 mcg inhalation QAM 12/25/24 01/21/25 History with inhalation device brexpiprazole 3 mg tablet (Rexulti) 3 mg PO QPM 01/01/25 01/21/25 History fluoxetine 40 mg capsule 80 mg PO DAILY 01/01/25 01/21/25 History acetaminophen 325 mg tablet 650 mg PO Q4 PRN Fever Or Pain 01/21/25 01/21/25 History budesonide 180 mcg/actuation 1 inh inhalation BID 01/21/25 01/21/25 History breath activated powder inhaler (Pulmicort Flexhaler) cholecalciferol (vitamin D3) 25 25 mcg PO QAM 01/21/25 01/21/25 History mcg (1,000 unit) capsule (Vitamin D3) ipratropium 0.5 mg-albuterol 3 mg 3 ml inhalation QID 01/21/25 01/21/25 History (2.5 mg base)/3 mL nebulization soln loperamide 2 mg tablet (Imodium 2 mg PO Q6H PRN Diarrhea 01/21/25 01/21/25 History A-D) montelukast 10 mg tablet 10 mg PO HS 01/21/25 01/21/25 History (Singulair) nystatin 100,000 unit/gram topical 1 applic topical UD 01/21/25 01/21/25 History powder olanzapine 2.5 mg tablet 2.5 mg PO HS 01/21/25 01/21/25 History ondansetron 8 mg disintegrating 8 mg PO Q8H PRN N/V 01/21/25 01/21/25 History tablet prochlorperazine maleate 10 mg 10 mg PO Q6H PRN N/V 01/21/25 01/21/25 History tablet Patient History Medical History Hypertension Hypothyroidism COPD (chronic obstructive pulmonary disease) Mild tricuspid regurgitation Mild mitral regurgitation Severe persistent asthma Type 2 diabetes mellitus Anemia Dyslipidemia Non-proliferative diabetic retinopathy Stage III chronic kidney disease Venous insufficiency Family History Mother Hypertension Diabetes Father Diabetes Denies family history of Kidney disease Social History Smoking Status: Former smoker Tobacco Type: Cigarettes Age Started Using Tobacco: 21; Age Quit Using Tobacco: 63; packs per day: 2; Do You Dip or Chew Tobacco: No; Hx Alcohol Use: No Hx Substance Use: No Preferred Language: Spanish Communication Ability: Effective Visual Impairment: No Limitations Hearing Ability: Normal Test Engineering Manager Required: No Beliefs That Will Affect Care: Cultural marital status: Current Living Situation: Alone current occupational status: disabled How many Children do You have: 0 Feels Safe at Home: Yes Diet: regular caffeine: Yes (2 coffees daily) Dental Care, Regularly: No Physical Activity Frequency: Does not Exercise Seatbelt Use: always Sunscreen Use: No Do you think of yourself as: straight/heterosexual Gender Identity: Female Assistive Devices: Walker Results & Data Vital Signs (Past 12 Hours) Vital Signs Pulse Pulse Resp BP BP Pulse Ox O2 Del Method 01/22/25 09:30 104 H 17 137/60 96 Room Air 01/22/25 09:00 95 H 20 131/66 94 01/22/25 08:31 103 H 134/95 95 Room Air 01/22/25 08:00 95 H 20 126/68 93 01/22/25 07:33 91 H 03/25 07:30 94 H 110/77 01/22/25 07:17 93 H 16 94 Room Air 01/22/25 05:00 95 H 24 106/77 97 Room Air 01/22/25 04:00 93 H 24 117/81 97 Room Air 01/22/25 02:19 84 01/22/25 02:09 88 22 129/74 97 Room Air 01/21/25 23:26 93 H 22 100/63 97 Room Air
[2025-01-22] MEDS: VISIPAQUE IV ONE (13:39)
--- NOTE | 2025-01-22 14:30 | Procedure Note ---
Angiogram Post Procedure Fluoroscopy Time (minutes): 6.1 Radiation (mGy): 27 Contrast: 80 Post Operative Report Pre & Post Diagnosis Operation Date: 01/22/25 09:40 Pre-Op Diagnosis: Ischemic Right Lower Extremity Post-Op Diagnosis: Ischemic Right Lower Extremity I identified the patient and participated in the time-out.: Yes Procedure Operation Date: 01/22/25 09:40 Actual Procedures p Open Thrombectomy of Iliac Artery; Right Lower Extremity Mechanical Thrombectomy(Right) of anterior tibial artery, transluminal balloon angioplasty of right anterior tibial artery - Ismael Grimes MD Surgeon Ismael Grimes MD Poultry Raiser none Estimated Blood Loss 300 Findings Consistent with Post-Op Diagnosis Specimens thrombus Anesthesia Type General Complications none Disposition Accompanied Patient To Recovery: No Disposition: Recovery Room Indications This is a 69-year-old female with stage IV ovarian cancer. She presented to ER with shortness of breath and asthma exacerbation. At that time she was found to have paresthesias of right lower extremity. CT angiogram done at that time showed an iliac stenosis and good runoff distally with no obstructions or stenosis according to the reading. She was seen today and in reviewing the CT angiogram she was found to have a short right common iliac artery occlusion, occlusion of her tibial peroneal trunk. Occlusion of her posterior tibial in its entirety, occlusion of the anterior tibial and peroneal artery shortly distal to its takeoff. Emergent operative procedures recommended. This was discussed with the patient's sister who elected to have us attempt to salvage the lower extremity. I have discussed the risks options and benefits of the procedure with the patient. The patient understands the risks options and benefits and agrees to the procedure. Description of Procedure The patient was taken the op room placed spine position. After general anesthesia was accomplished a timeout was performed and the patient was identified. Longitudinal groin incision in right groin. This is carried down through a lot of edematous tissue to the common femoral artery. Common femoral artery superficial femoral artery and profundofemoral artery were all visualized. They were isolated. They were soft with minimal plaque felt. Patient was heparinized at that time. We made a transverse incision in the common femoral artery and passed a 4 Omid proximally. A large white clot was removed from the iliac system. Excellent inflow was seen at that time. We then closed the arteriotomy with interrupted 5-0 Prolene's. We then made a transverse arteriotomy on the superficial femoral artery beyond its origin. There was flow going to the leg through the profunda at that point. We passed a #3 Omid down the leg. We retracted a small amount of clot which again appeared to be white and not fresh thrombus. It resembled more embolization. We inserted a 6 [place] sheath into the superficial femoral artery. Arteriography done at that time showed no flow below the knee. We could only see the popliteal tibioperoneal trunk. The proximal anterior tibial was also visualized for approximately 8 to 10 cm. The peroneal was not visualized for the first 8 to 10 cm. The posterior tibial was completely occluded. We were able to get a wire down the anterior tibial artery. We used a penumbra device to try to declot this artery. We did 2 passes. A small amount of clot was extracted. Arteriography showed no flow going down the anterior tibial at that point. We then tried the dilate the artery with a 2.5 x 120 Clarion balloon. The balloon expanded nicely. Again after the ballooning of this artery we did an arteriogram which showed again no flow through with these vessels. Being that we could not see any runoff on the foot no other interventions could be tried. The foot preop appeared mottled and was cold to touch. At that point the sheath was pulled from the femoral artery and the arteriotomy was closed with a interrupted 6-0 Prolene sutures. The wound itself was closed with interrupted 2-0 Vicryl sutures for the femoral sheath layer and we used 3-0 Vicryl for the proximal distal point to try and somewhat close the subcutaneous layer. There is significant amount of serous drainage and edema in the groin. We decided that point to leave the wound open being that the deeper layers cover the femoral artery and veins. We use the wound VAC to dress the wound.The patient left the operation room in satisfactory condition and tolerated the procedure well. All needle and sponge counts were correct at the end of the procedure. I attest to the content of the Intraoperative Record and any orders documented therein. Any exceptions are noted below.
[2025-01-22 14:57] LABS: Hematocrit (blood only) 29.8 % (37.0-47.0); Hemoglobin 9.8 g/dl (12.0-16.0); Mean Corpuscular Hemoglobin 28.2 pg (25.0-34.0); Mean Corpuscular Hgb Conc 32.9 g/dL (32.0-36.0); Mean Corpuscular Volume 85.6 fL (80.0-100.0); Mean Platelet Volume 10.3 fL (9.4-12.4); Nucleated RBC # (auto) 0.02 K/uL (0.00-0.12); Nucleated RBC % (auto) 0.2 %; Platelet Count 219 K/uL (130-400); RDW Coefficient of Variation 17.3 % (11.5-14.5); RDW Standard Deviation 53.2 fL (36.4-46.3); Red Blood Count 3.48 M/uL (4.20-5.40); White Blood Count 10.89 K/ul (4.8-10.8)
[2025-01-22] MEDS ORDERED: ATROPINE SULFATE 0.1 MG/ML 10ML SYR IV PRN (15:03)
[2025-01-22] MEDS ORDERED: fentaNYL citrate PF 100 MCG/2 ML VIAL IV PRN (15:03)
[2025-01-22] MEDS ORDERED: NALOXONE HCL 0.4 MG/1 ML VIAL/CARP IV PRN (15:03)
[2025-01-22] MEDS ORDERED: ePHEDrine sulfate 50 MG/ML AMP IV PRN (15:03)
[2025-01-22] MEDS ORDERED: FLUMAZENIL 0.1 MG/1 ML 10 ML VIAL IV PRN (15:03)
[2025-01-22] MEDS ORDERED: ONDANSETRON INJ 2 MG/ML 2 ML VIAL IV PRN (15:03)
--- NOTE | 2025-01-22 15:03 | Anesthesiology Progress Note ---
Date of Service January 22, 2025 Anesthesia Post Procedure Vital Signs Vital Signs: Temp Pulse Pulse Pulse Resp BP BP 01/22/25 14:50 37.2 C 102 H 22 128/70 01/22/25 14:40 112 H 22 141/90 H 01/22/25 14:30 113 H 19 143/81 H 01/22/25 14:24 37.9 C H 108 H 16 148/76 H 01/22/25 11:10 36.8 C 102 H 137/81 01/22/25 09:30 104 H 17 137/60 01/22/25 09:00 95 H 20 131/66 01/22/25 08:31 103 H 134/95 01/22/25 08:00 95 H 20 126/68 01/22/25 07:33 91 H 01/22/25 07:30 94 H 110/77 01/22/25 07:17 93 H 16 01/22/25 05:00 95 H 24 106/77 01/22/25 04:00 93 H 24 117/81 01/22/25 02:19 84 01/22/25 02:09 88 22 129/74 01/21/25 23:26 93 H 22 100/63 01/21/25 22:15 109 H 01/21/25 21:27 98 H 21 01/21/25 21:03 97 H 26 H 01/21/25 21:00 116/72 01/21/25 21:00 116/72 01/21/25 21:00 116/72 01/21/25 20:48 97 H 18 01/21/25 20:45 97 H 18 01/21/25 20:33 98 H 21 01/21/25 20:30 105/70 01/21/25 20:30 105/70 01/21/25 20:21 98 H 12 01/21/25 20:21 124/69 01/21/25 20:21 124/69 01/21/25 20:21 124/69 01/21/25 19:00 101 H 19 99/60 L 01/21/25 18:01 98 H 19 134/75 01/21/25 17:00 102 H 26 H 113/69 01/21/25 15:54 103 H 19 114/80 BP Pulse Ox O2 Del Method O2 Flow Rate 01/22/25 14:50 97/50 L 95 Nasal Cannula 2 01/22/25 14:40 145/58 H 95 Nasal Cannula 2 01/22/25 14:30 141/65 H 96 Oxymask 8 01/22/25 14:24 152/90 H 94 Oxymask 8 01/22/25 11:10 93 Room Air 01/22/25 09:30 96 Room Air 01/22/25 09:00 94 01/22/25 08:31 95 Room Air 01/22/25 08:00 93 01/22/25 07:33 01/22/25 07:30 01/22/25 07:17 94 Room Air 01/22/25 05:00 97 Room Air 01/22/25 04:00 97 Room Air 01/22/25 02:19 01/22/25 02:09 97 Room Air 01/21/25 23:26 97 Room Air 01/21/25 22:15 01/21/25 21:27 96 01/21/25 21:03 95 01/21/25 21:00 01/21/25 21:00 01/21/25 21:00 01/21/25 20:48 96 01/21/25 20:45 95 01/21/25 20:33 93 01/21/25 20:30 01/21/25 20:30 01/21/25 20:21 01/21/25 20:21 01/21/25 20:21 01/21/25 20:21 01/21/25 19:00 97 01/21/25 18:01 95 01/21/25 17:00 97 01/21/25 15:54 95 Pain Intensity Right Leg: Pain Intensity: 8 Transfer of Care Handoff Completed per policy Notes Mental Status: see notes below Patient Amnestic to Procedure: Yes Nausea / Vomiting: adequately controlled Pain: adequately controlled Airway Patency, RR, SpO2: see Notes below BP & HR: see Notes below Hydration State: see Notes below Anesthetic Complications: no major complications apparent Notes: pt mentation is obtunded;pt fulfilled extubtion criteria;pt has B/L pleural effusions; pt has stage 4 ovarian cancer w/ mets throughout;pt to be transferred to ICU
[2025-01-22 15:13] LABS: Basophils # (auto) 0.01 K/uL (0.00-0.20); Basophils % (auto) 0.1 %; Immature Granulocytes # (auto) 0.16 K/uL (0.01-0.20); Immature Granulocytes % (auto) 1.5 %; Lymphocytes # (auto) 0.13 K/uL (1.20-3.40); Lymphocytes % (auto) 1.2 %; Monocytes # (auto) 0.05 K/uL (0.11-0.59); Monocytes % (auto) 0.5 %; Neutrophils # (auto) 10.54 K/uL (1.40-6.50); Neutrophils % (auto) 96.7 %; Toxic Vacuolation 1+
[2025-01-22 15:19] LABS: Albumin Level 2.1 gm/dl (3.4-5.0); BUN Creatinine Ratio 38.9 (10-20); Bilirubin Direct 0.9 mg/dl (0-0.2); Bilirubin,Total 1.5 mg/dl (0.2-1.0); Calcium 7.4 mg/dl (8.6-10.3); Creatinine Clr Calc Pharmacy 46.1 ml/min; Magnesium 1.8 mg/dl (1.7-2.4); Potassium 3.9 mmol/L (3.5-5.1); Total Protein 4.4 gm/dl (6.0-8.3)
--- NOTE | 2025-01-22 15:30 | Critical Care Consultation ---
Date of Consultation January 22, 2025 Assessment & Plan (1) Ischemic foot: (2) Peritoneal carcinomatosis: (3) Ascites: (4) Pleural effusion: Plan Impression: 69-year-old female with history of asthma now with widely metastatic ovarian carcinoma status postchemotherapy with malignant pleural effusions and malignant ascites admitted with ischemic lower extremity. I suspect that her shortness of breath and wheezing are likely related to the moderate-sized bilateral pleural effusions. Recommendations: 1. Ischemic lower extremity. Discussed with vascular surgery. Recommend restarting heparin later this afternoon. Unfortunately, they were not able to establish patency of the arteries. Pain control. This probable the patient may require additional surgical intervention or even amputation if foot becomes necrotic/ischemic. Will restart heparin without a bolus this evening. 2. Malignant pleural effusions: Could consider thoracentesis however given the ascites and rapid reaccumulation, suspect the fluid would reaccumulate fairly quickly. Could consider Pleurx catheter placement as a palliative measure but would need to clear this with medical oncology as well as tax adjuster/onc at [place] 3. Asthma: Continue inhalers. 4. Mild anemia: Continue to follow. No indication for transfusion currently. 6. Metastatic ovarian carcinoma. Patient's performance status is poor after receiving chemotherapy. Unclear next options. Reportedly the patient was to be seen in [place] for debulking. Unclear if she needs to be transferred acutely and will defer to the primary admitting service as well as medical oncology. Patient's overall prognosis is guarded. Would recommend palliative care consultation with the patient and family given her current performance status, medical issues, and ongoing active malignancy Patient has significant life-threatening illness with significant possibility of loss of life or limb. A total of 40 minutes in critical care time was spent in evaluation management coordination of care for this patient including discussion with bedside ICU nurses and vascular surgery History of Present Illness Attending Physician: Candice Bañuelos MD History of Present Illness Asked by vascular surgery to assist in evaluation management this patient with acute arterial occlusion status post attempted thrombectomy. History is obtained from discussion with vascular surgery as well as review of the electronic medical record. Patient is a 69-year-old female with metastatic ovarian carcinoma followed by cancer care [facility]. She has malignant pleural effusions and malignant ascites. She has undergone cytoreductive chemotherapy with plans to see [place] for debulking procedures. She presented to the emergency room from her [facility] facility with shortness of breath coughing and wheezing. A CT angiogram with runoff was performed due to painful right lower extremity with poor pulses. Occlusions were noted. Patient was placed on heparin. Vascular surgery took the patient to the OR today for attempted thrombectomy. Discussed with the vascular surgery team. They were unable to establish flow below the knee despite aggressive attempts. Patient was extubated in the OR and is brought to the ICU for monitoring. Allergies Allergy/AdvReac Type Severity Reaction Status Date / Time metformin Allergy Severe Verified 01/01/25 18:29 cashew nut Allergy Verified 01/04/25 12:54 hazelnut Allergy Verified 01/04/25 12:54 nut - unspecified Allergy Verified 01/04/25 12:54 peanut Allergy Verified 01/04/25 12:54 peanut oil Allergy Verified 01/04/25 12:54 pecan nut Allergy Verified 01/04/25 12:54 aspirin AdvReac Difficulty Verified 01/01/25 18:29 Breathing Home Medications Medication Instructions Recorded Confirmed Type fenofibrate micronized 200 mg 200 mg PO QPM 06/19/19 01/21/25 History capsule multivitamin 1 tab PO QAM 06/19/19 01/21/25 History simvastatin 20 mg tablet 20 mg PO QAM #90 tabs 07/10/20 01/21/25 History albuterol sulfate 0.63 mg/3 mL 0.63 mg (3 mL) continuous 12/05/24 01/21/25 Rx solution for nebulization nebulization Q4H PRN shortness of breath or wheezing #90 mL levothyroxine 50 mcg tablet 50 mcg PO DAILY 12/05/24 01/21/25 History benzonatate 100 mg capsule 100 mg PO TID PRN cough #30 caps 12/13/24 01/21/25 Rx furosemide 20 mg tablet 20 mg PO QAM 12/20/24 01/21/25 History clonazepam 0.5 mg tablet 0.5 mg PO BID 12/25/24 01/21/25 History insulin glargine 100 unit/mL (3 16 unit subcut QAM 12/25/24 01/21/25 History mL) subcutaneous pen (Lantus Solostar U-100 Insulin) insulin lispro 100 unit/mL 4 unit subcut WM 12/25/24 01/21/25 History subcutaneous pen (Humalog KwikPen (U-100) Insulin) ipratropium 20 mcg-albuterol 100 1 puff inhalation QID 12/25/24 01/21/25 History mcg/actuation mist for inhalation (Combivent Respimat) tezepelumab-ekko 210 mg/1.91 mL 210 mg subcut UD 12/25/24 01/21/25 History (110 mg/mL) subcutaneous pen injector (Tezspire) tiotropium bromide 18 mcg capsule 18 mcg inhalation QAM 12/25/24 01/21/25 History with inhalation device brexpiprazole 3 mg tablet (Rexulti) 3 mg PO QPM 01/01/25 01/21/25 History fluoxetine 40 mg capsule 80 mg PO DAILY 01/01/25 01/21/25 History acetaminophen 325 mg tablet 650 mg PO Q4 PRN Fever Or Pain 01/21/25 01/21/25 History budesonide 180 mcg/actuation 1 inh inhalation BID 01/21/25 01/21/25 History breath activated powder inhaler (Pulmicort Flexhaler) cholecalciferol (vitamin D3) 25 25 mcg PO QAM 01/21/25 01/21/25 History mcg (1,000 unit) capsule (Vitamin D3) ipratropium 0.5 mg-albuterol 3 mg 3 ml inhalation QID 01/21/25 01/21/25 History (2.5 mg base)/3 mL nebulization soln loperamide 2 mg tablet (Imodium 2 mg PO Q6H PRN Diarrhea 01/21/25 01/21/25 History A-D) montelukast 10 mg tablet 10 mg PO HS 01/21/25 01/21/25 History (Singulair) nystatin 100,000 unit/gram topical 1 applic topical UD 01/21/25 01/21/25 History powder olanzapine 2.5 mg tablet 2.5 mg PO HS 01/21/25 01/21/25 History ondansetron 8 mg disintegrating 8 mg PO Q8H PRN N/V 01/21/25 01/21/25 History tablet prochlorperazine maleate 10 mg 10 mg PO Q6H PRN N/V 01/21/25 01/21/25 History tablet Patient History Medical History Hypertension Hypothyroidism COPD (chronic obstructive pulmonary disease) Mild tricuspid regurgitation Mild mitral regurgitation Severe persistent asthma Type 2 diabetes mellitus Anemia Dyslipidemia Non-proliferative diabetic retinopathy Stage III chronic kidney disease Venous insufficiency Family History Mother Hypertension Diabetes Father Diabetes Denies family history of Kidney disease Social History Smoking Status: Unknown if ever smoked Tobacco Type: Cigarettes Age Started Using Tobacco: 21; Age Quit Using Tobacco: 63; packs per day: 2; Do You Dip or Chew Tobacco: No; Hx Alcohol Use: No Hx Substance Use: No Preferred Language: Danish Communication Ability: Effective Visual Impairment: No Limitations Hearing Ability: Normal Teller Required: Yes Beliefs That Will Affect Care: None marital status: Current Living Situation: Alone current occupational status: disabled How many Children do You have: 0 Feels Safe at Home: Yes Diet: regular caffeine: Yes (2 coffees daily) Dental Care, Regularly: No Physical Activity Frequency: Does not Exercise Seatbelt Use: always Sunscreen Use: No Do you think of yourself as: straight/heterosexual Gender Identity: Female Assistive Devices: Walker Review of Systems Review of Systems: Please refer to admission H&P. No additions or deletions Physical Exam Constitutional: WD/WN, vitals as above + ill appearing, + obese and + frail appearing; not in distress Respiratory: normal respiratory effort; no respiratory distress Auscultation: + diminished lung sounds, + crackles and + wheezes Cardiovascular: Rate/Rhythm: regular rate and regular rhythm Vessels: posterior tibial pulses present (LLE easily dopplerable. RLE no doppler) and dorsalis pedis pulses present (LLE easily dopplerable. RLE no doppler); + abnormal peripheral pulses Extremities: + pedal edema and + edema (+4); + abnormal capillary refill (RLE mottled, no refill) Gastrointestinal (Abdomen): Inspection/Auscultation: + abdominal edema Percussion/Palpation: abdomen soft and + ascites; abdomen nontender Skin: + mottling (RLE, cold to ankle) Neurologic: moves all extremities (RLE toes decreased movement), awake and + confused (mild, slow to process); no focal motor deficits Psychiatric: Orientation: alert, oriented to person, oriented to place and cooperative; + not oriented to time Results & Data Results & Data Vital Signs (Past 12 Hours) Vital Signs Temp Pulse Pulse Pulse Resp BP BP 01/22/25 15:10 99 H 19 104/71 01/22/25 15:00 103 H 17 101/64 01/22/25 14:50 37.2 C 102 H 22 128/70 01/22/25 14:40 112 H 22 141/90 H 01/22/25 14:30 113 H 19 143/81 H 01/22/25 14:24 37.9 C H 108 H 16 148/76 H 01/22/25 11:10 36.8 C 102 H 137/81 01/22/25 09:30 104 H 17 137/60 01/22/25 09:00 95 H 20 131/66 01/22/25 08:31 103 H 134/95 01/22/25 08:00 95 H 20 126/68 01/22/25 07:33 91 H 01/22/25 07:30 94 H 110/77 01/22/25 07:17 93 H 16 01/22/25 05:00 95 H 24 106/77 01/22/25 04:00 93 H 24 117/81 BP Pulse Ox O2 Del Method O2 Flow Rate 01/22/25 15:10 97/52 L 96 Nasal Cannula 2 01/22/25 15:00 97/47 L 96 Nasal Cannula 2 01/22/25 14:50 97/50 L 95 Nasal Cannula 2 01/22/25 14:40 145/58 H 95 Nasal Cannula 2 01/22/25 14:30 141/65 H 96 Oxymask 8 01/22/25 14:24 152/90 H 94 Oxymask 8 01/22/25 11:10 93 Room Air 01/22/25 09:30 96 Room Air 01/22/25 09:00 94 01/22/25 08:31 95 Room Air 01/22/25 08:00 93 01/22/25 07:33 01/22/25 07:30 01/22/25 07:17 94 Room Air 01/22/25 05:00 97 Room Air 01/22/25 04:00 97 Room Air Critical Care Results & Data Vital Signs (Past 12 Hours) Vital Signs Temp Pulse Pulse Pulse Resp BP BP 01/22/25 15:10 99 H 19 104/71 01/22/25 15:00 103 H 17 101/64 01/22/25 14:50 37.2 C 102 H 22 128/70 01/22/25 14:40 112 H 22 141/90 H 01/22/25 14:30 113 H 19 143/81 H 01/22/25 14:24 37.9 C H 108 H 16 148/76 H 01/22/25 11:10 36.8 C 102 H 137/81 01/22/25 09:30 104 H 17 137/60 01/22/25 09:00 95 H 20 131/66 01/22/25 08:31 103 H 134/95 01/22/25 08:00 95 H 20 126/68 01/22/25 07:33 91 H 01/22/25 07:30 94 H 110/77 01/22/25 07:17 93 H 16 01/22/25 05:00 95 H 24 106/77 01/22/25 04:00 93 H 24 117/81 BP Pulse Ox O2 Del Method O2 Flow Rate 01/22/25 15:10 97/52 L 96 Nasal Cannula 2 01/22/25 15:00 97/47 L 96 Nasal Cannula 2 01/22/25 14:50 97/50 L 95 Nasal Cannula 2 01/22/25 14:40 145/58 H 95 Nasal Cannula 2 01/22/25 14:30 141/65 H 96 Oxymask 8 01/22/25 14:24 152/90 H 94 Oxymask 8 01/22/25 11:10 93 Room Air 01/22/25 09:30 96 Room Air 01/22/25 09:00 94 01/22/25 08:31 95 Room Air 01/22/25 08:00 93 01/22/25 07:33 01/22/25 07:30 01/22/25 07:17 94 Room Air 01/22/25 05:00 97 Room Air 01/22/25 04:00 97 Room Air Lab & Micro Results (Past 24 Hours) RBC 3.48 M/uL (4.20-5.40) L 01/22/25 WBC 10.89 K/ul (4.8-10.8) H 01/22/25 Hgb 9.8 g/dl (12.0-16.0) L 01/22/25 Hct 29.8 % (37.0-47.0) L 01/22/25 MCV 85.6 fL (80.0-100.0) 01/22/25 MCH 28.2 pg (25.0-34.0) 01/22/25 MCHC 32.9 g/dL (32.0-36.0) 01/22/25 RDW Standard Deviation 53.2 fL (36.4-46.3) H 01/22/25 RDW Coefficient of Variation 17.3 % (11.5-14.5) H 01/22/25 Plt Count 219 K/uL (130-400) 01/22/25 MPV 10.3 fL (9.4-12.4) 01/22/25 Nucleated Red Blood Cells % (auto) 0.2 % 01/22 Nucleated RBC Absolute Count (auto) 0.02 K/uL (0.00-0.12) 0 01/22/25 Neutrophils (%) (Auto) 96.7 % 01/22/25 Lymphocytes (%) (Auto) 1.2 % 01/22/25 Monocytes # (Auto) 0.05 K/uL (0.11-0.59) L 01/22/25 Eosinophils # (Auto) 0.00 K/uL (0.00-0.50) 01/22/25 Immature Granulocyte % (Auto) 1.5 % 01/22/25 Neutrophils # (Auto) 10.54 K/uL (1.40-6.50) H 01/22/25 Lymphocytes # (Auto) 0.13 K/uL (1.20-3.40) L 01/22/25 Monocytes # (Auto) 0.05 K/uL (0.11-0.59) L 01/22/25 Eosinophils # (Auto) 0.00 K/uL (0.00-0.50) 01/22/25 Basophils # (Auto) 0.01 K/uL (0.00-0.20) 01/22/25 Immature Granulocyte # (Auto) 0.16 K/uL (0.01-0.20) 5 Toxic Vacuolation 1+ 01/22/25 Na 136 mmol/L (136-145) 01/22/25 K 3.9 mmol/L (3.5-5.1) 01/22/25 Cl 104 mmol/L (98-107) 01/22/25 CO2 28 mmol/L (21-32) 01/22/25 Anion Gap 4 (3-11) 01/22/25 BUN 44 mg/dl (6-23) H 01/22/25 Creatinine 1.13 mg/dl (0.6-1.2) 01/22/25 BUN/Creatinine Ratio 38.9 (10-20) H 01/22/25 Glu 119 mg/dl (70-99(Fasting)) H 01/22/25 Ca 7.4 mg/dl (8.6-10.3) L 01/22/25 Total Bilirubin 1.5 mg/dl (0.2-1.0) H 01/22/25 Direct Bilirubin 0.9 mg/dl (0-0.2) H 01/22/25 AST 160 U/L (13-39) H 01/22/25 ALT 98 U/L (7-52) H 01/22/25 Alkaline Phosphatase 386 U/L (34-104) H 01/22/25 TP 4.4 gm/dl (6.0-8.3) L 01/22/25 Albumin 2.1 gm/dl (3.4-5.0) L 01/22/25 Mg 1.8 mg/dl (1.7-2.4) 01/22/25 14:44 Calcium Level 7.4 mg/dl (8.6-10.3) L 01/22/25 14:44 Diagnostic Findings (Past 24 Hours) Aorta w/Runoff CTA 01/21/25 16:18 EXAM: CT ang AA runof w inc wo ifdon CLINICAL HISTORY: OvCA perit carcinomatosis, Absent R pedal pulses. TECHNIQUE: CT Angiography of abdominal aorta, bilateral iliac and femoropopliteal arterial trees with IV contrast administration. 119ml Optiray 320 One of these 3D techniques was utilized: Maximum Intensity Pixel (MIP), 3D Reconstructed Images, Volume Rendered Images, Surface Shaded Rendering. One of the following dose reduction techniques was utilized for this exam: Automated exposure control, adjustment of the mA and/or kV according to patient size, and use of iterative reconstruction. COMPARISON: Comoared to prior CT 01/02/2025 FINDINGS: Diffuse increase in intimal medial thickness of all examined arteries with no significant stenosis except at the right common iliac artery reaching 75 %. Aorta: The abdominal aorta is normal in caliber. No evidence of aneurysm, dissection, or significant atherosclerotic changes. Aortic bifurcation is unremarkable. Renal Arteries: Renal arteries are normal in size and opacification. No evidence of stenosis or occlusion. Symmetric perfusion of both kidneys. Mesenteric Arteries: Superior mesenteric artery (SMA) and inferior mesenteric artery (RAJNI) are normal in caliber and opacification. No evidence of stenosis or occlusion. Celiac Artery: Celiac artery is normal in caliber and opacification. No evidence of stenosis or occlusion. Iliac Arteries: Common, internal, and external iliac arteries are normal in caliber and opacification. No evidence of stenosis, aneurysm, or occlusion. 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 Femoral Arteries: Common femoral arteries are normal in caliber and opacification. No evidence of stenosis or occlusion. Superficial and deep femoral arteries are normal in appearance. Popliteal Arteries: Popliteal arteries are normal in caliber and opacification. No evidence of stenosis or occlusion. Tibial Arteries: Anterior tibial, posterior tibial, and peroneal arteries are normal in caliber and opacification. No evidence of stenosis or occlusion. Venous Structures: Inferior vena cava (IVC) and major venous structures are normal in caliber and opacification. No evidence of thrombus or obstruction. Liver: Normal size and morphology. Homogeneous enhancement post-contrast. No focal hepatic lesions. Gallbladder and Biliary System: Chlecywtetcomy clips. Dilated intrahepatic and extrahepatic biliary channels. reach CBD 12 mm. Pancreas: Normal size and contour. Homogeneous enhancement post-contrast. No masses or cystic lesions. Spleen: Normal size and appearance. Homogeneous enhancement post-contrast. Adrenal Glands: Normal size and morphology bilaterally. No adrenal masses. Kidneys and Ureters: Normal size, shape, and position of both kidneys. Homogeneous enhancement post-contrast. No renal stones, masses, or hydronephrosis. Ureters are unremarkable. Bladder: Normal in size and wall thickness. No intraluminal masses. Bilateral complex adenxal cystic masses. Normal enhancement post-contrast. Bowel: Normal appearance of the visualized bowel loops. No evidence of obstruction, wall thickening, or abnormal dilatation. Lymph Nodes: No pathologically enlarged lymph nodes in the abdomen or pelvis. Peritoneum: Marked amount of free fluid in abdomen and pelvis with multiple nodules and enhancing omental deposits, largest anterior to the spleen measuring about 10x5.5 cm. Bones: No lytic or sclerotic lesions. Normal alignment and bone density. Soft Tissues: Normal appearance of the visualized soft tissues. IMPRESSION: 1. 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 2. 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 with marked ascites, and enhancing omental deposits, largest anterior to the spleen measuring about 10x5.5 cm., suggest clinical assessment, and tumor markers (unchanged) 3. Dilated intrahepatic and extrahepatic biliary channels. reach CBD 12 mm. Suggest MRCP and clinical assessment (new) Electronically signed by Nohemy Leahy 01-21-2025 8:08 PM Chest CTA 01/21/25 16:18 EXAM: CT angio chest PE protocol CLINICAL HISTORY: SOB, OvCA peritoneal carcinomatosis, r/o PE TECHNIQUE: CT angiography of the chest was performed with the administration of intravenous contrast with the following protocol: axial images with, reconstructed coronal and sagittal images. The contrast-enhanced images were acquired in arterial and venous phases. Intravenous contrast was administered using automated injection techniques. Bolus tracking was employed to optimize arterial phase imaging. One of these 3D techniques was utilized: Maximum Intensity Pixel (MIP), 3D Reconstructed Images, Volume Rendered Images, Surface Shaded Rendering. One of the following dose reduction techniques was utilized for this exam: Automated exposure control, adjustment of the mA and/or kV according to patient size, and use of iterative reconstruction. (CTDI: 23.75 mGy, DLP: 2661.55 mGy*cm) COMPARISON: Comparison is made with 01/02/2025. FINDINGS: Aorta and Great Vessels: Ascending Aorta: Normal in caliber, no aneurysm, dissection, or significant atherosclerosis. Aortic Arch: Normal in caliber, no aneurysm, dissection, or significant atherosclerosis. Descending Aorta: Normal in caliber, no aneurysm, dissection, or significant atherosclerosis. Pulmonary Arteries: The main pulmonary artery and its branches are patent. No evidence of pulmonary embolism or significant stenosis. Heart: Cardiac Chambers: increase cardiac size. Pericardium: No pericardial effusion or thickening. Lungs and Pleura: Bilateral basal consolidations Bilateral moderate pleural effusion with passive atelectasis. Slight compressed lower trachea and bronchi with patent lumen. Mediastinum: No mediastinal mass or abnormal lymphadenopathy. Normal appearance of the trachea and central bronchi. Hilar Structures: Hilar structures are normal without enlargement. Chest Wall: No mass lesions or abnormalities in the chest wall. Vascular Structures: Superior Vena Cava: Patent without evidence of stenosis or thrombus. Inferior Vena Cava: Patent without evidence of stenosis or thrombus. Bones and Soft Tissues: No fractures, lytic, or blastic lesions of the visualized bony structures. Thoracic spondylosis. Soft tissues are unremarkable. IMPRESSION: 1. No pulmonary embolism at the time of the scan. (unchanged) 2. Bilateral moderate pleural effusion with compression collapse of both posterior segments of both lower lobes. (unchanged) 3. Slight compressed lower trachea and bronchi with patent lumen. (unchanged) suggests clinical assessment. 4. Cardiomegaly. (unchanged) Electronically signed by Nohemy Leahy 01-21-2025 7:47 PM Duplex Scan Lower Extremity Artery 01/21/25 18:09 Exam(s): US ARTERIAL RIGHT LOWER EXTREMITY EXAM: US Duplex Right Lower Extremity Arteries CLINICAL HISTORY: Absent right pedal pulses. TECHNIQUE: Real-time duplex ultrasound scan of the right lower extremity arteries integrating B-mode two-dimensional vascular structure, Doppler spectral analysis and color flow Doppler imaging. COMPARISON: No relevant prior studies available. 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 There is multiphasic wave forms of the peak systolic velocity of 72 cm/s. Right superficial femoral artery: The superficial femoral artery is patent with atherosclerotic disease and multiphasic waveforms, with the peak systolic velocities measuring 104 cm/s proximally, 107 cm at the mid segment and 77 cm/s distally. Right popliteal artery: The right popliteal artery demonstrates monophasic waveforms with a peak systolic velocity of between 30-40 cm/s. Right calf/foot arteries: The right posterior tibial artery is not well delineated. No arterial flow noted in this region. The peroneal artery is not clearly delineated. The proximal right anterior tibial artery is patent with monophasic waveforms and peak systolic velocity of 24 cm/s. The mid to distal anterior tibial artery are not clearly delineated and may be occluded. The dorsalis pedis artery is not definitively delineated sonographically. Other arteries: The proximal right profunda femoral artery is patent with biphasic waveforms in the peak systolic velocity of 64 cm/s. Soft tissues: Subcutaneous edema noted at the calf. IMPRESSION: 1. The proximal right anterior tibial artery is patent with monophasic waveforms and peak systolic velocity of 24 cm/s. The mid to distal anterior tibial artery are not clearly delineated and may be occluded. The peroneal and posterior tibial arteries are not identified. The dorsalis pedis artery is not clearly delineated and may be occluded. Recommend further evaluation with CTA or conventional angiography, as clinically indicated. 2. Atherosclerotic disease from the common femoral through the superficial femoral arteries. No elevated velocities to suggest a focal hemodynamic stenosis. The popliteal artery demonstrates monophasic waveforms, but is patent. Electronically signed by: Pato Aldana MD 01/21/25 21:20 PM Venous Doppler Study 01/21/25 18:09 Exam(s): US VENOUS BILATERAL LOWER EXTREMITIES EXAM: US Duplex Bilateral Lower Extremities Veins CLINICAL HISTORY: BLE edema. TECHNIQUE: Real-time duplex ultrasound scan of the bilateral lower extremity veins integrating B-mode two-dimensional vascular structure, Doppler spectral analysis, color flow Doppler imaging and compression. COMPARISON: No relevant prior studies available. FINDINGS: Limitations: Evaluation is reportedly limited by underlying edema. Right deep veins: Unremarkable. No DVT in the right common femoral, femoral, proximal deep femoral or popliteal veins. The veins demonstrate normal color flow, are normally compressible, with normal phasic flow and/or augmentation response. The interrogated calf veins are patent. Right superficial veins: Unremarkable. No thrombus in the saphenofemoral junction. Left deep veins: Unremarkable. No DVT in the left common femoral, femoral, proximal deep femoral or popliteal veins. The veins demonstrate normal color flow, are normally compressible, with normal phasic flow and/or augmentation response. The interrogated calf veins are patent. Left superficial veins: Unremarkable. No thrombus in the saphenofemoral junction. Soft tissues: Diffuse subcutaneous fat stranding noted, most prominent from the knees distally. No loculated fluid collection. No popliteal cyst. IMPRESSION: 1. No evidence for deep vein thrombosis involving the bilateral lower extremities. 2. Bilateral subcutaneous edema. Electronically signed by: Pato Aldana MD 01/21/25 21:16 PM I & O Totals 24 Hours 01/21/25 01/22/25 01/23/25 06:59 06:59 06:59 Intake Total 165 / 165 981.25 / 981.25 Output Total 1250 / 1250 1100 / 1100 Balance -1085 / -1085 -118.75 / -118.75 Cumulative 01/21/25 12:48 thru 01/22/25 14:56 Intake Total 1146.25 Output Total 2350 Balance -1203.75 RT Ventilator Mngmt (Last Documented) Ventilator Ordered Settings Respiratory Rate 19 01/22/25 15:10 Ventilator - PT Measurements Respiratory Rate 19 Coding Level of Care Code 82284 CRITICAL CARE 1ST 30-74M Diagnoses Ischemic foot I99.8 Peritoneal carcinomatosis C78.6 Ascites R18.8 Ascites type: other type Pleural effusion J90 (3) Ascites Ascites type: other type Qualified Code(s): R18.8 - Other ascites
[2025-01-22 15:32] LABS: ANTI-Xa, UFH(UnfractionatedHep > 1.50 IU/ml (0.3-0.7)
[2025-01-22 15:33] LABS: Troponin I High Sensitivity 322.4 pg/ml (0-14)
[2025-01-22] MEDS ORDERED: PHARMACY GLYCEMIC MGMT CONSULT PRN (15:51)
[2025-01-22] MEDS: LACTATED RINGER'S 1,000 ML IV SCH (16:24)
[2025-01-22] MEDS: LACTATED RINGER'S 500 ML IV ONE (16:42)
[2025-01-22 17:22] LABS: Hematocrit (blood only) 25.2 % (37.0-47.0); Hemoglobin 8.3 g/dl (12.0-16.0); Mean Corpuscular Hemoglobin 28.3 pg (25.0-34.0); Mean Corpuscular Hgb Conc 32.9 g/dL (32.0-36.0); Mean Platelet Volume 10.8 fL (9.4-12.4); Platelet Count 190 K/uL (130-400); RDW Coefficient of Variation 17.3 % (11.5-14.5); RDW Standard Deviation 54.7 fL (36.4-46.3); Red Blood Count 2.93 M/uL (4.20-5.40); White Blood Count 9.43 K/ul (4.8-10.8)
[2025-01-22] MEDS ORDERED: SODIUM CHLORIDE 0.9% 100 ML IV PRN (17:42)
[2025-01-22] MEDS ORDERED: SODIUM CHLORIDE 0.9% 50 ML IV PRN (17:42)
[2025-01-22 17:45] LABS: Fibrinogen 370 mg/dl (184-400); INR 1.9 (0.9-1.1); Partial Thromboplastin Ratio > 4.9; Prothrombin Time 19.7 Seconds (9.0-12.0)
[2025-01-22 17:53] LABS: Partial Thromboplastin Time > 139 Seconds (21-31)
[2025-01-22 18:18] LABS: Hematocrit (blood only) 25.7 % (37.0-47.0); Hemoglobin 8.3 g/dl (12.0-16.0); Mean Corpuscular Hgb Conc 32.3 g/dL (32.0-36.0); Mean Corpuscular Volume 86.8 fL (80.0-100.0); Mean Platelet Volume 10.7 fL (9.4-12.4); Nucleated RBC # (auto) 0.02 K/uL (0.00-0.12); Nucleated RBC % (auto) 0.2 %; Platelet Count 188 K/uL (130-400); RDW Coefficient of Variation 17.3 % (11.5-14.5); Red Blood Count 2.96 M/uL (4.20-5.40); White Blood Count 9.13 K/ul (4.8-10.8)
--- NOTE | 2025-01-22 19:14 | Hospitalist Progress Note ---
Date of Service January 22, 2025 Assessment & Plan (1) Hemorrhagic shock: (2) Vascular occlusion: (3) Elevated LFTs: (4) Elevated troponin: (5) Pleural effusion: Plan This patient is a 69-year-old female with recently diagnosed metastatic ovarian cancer with carcinomatosis and malignant pleural effusions/malignant ascites, hypothyroidism, DM2, anxiety/depression, COPD/asthma, and hyperlipidemia who is admitted with #Hemorrhagic shock/Vascular occlusion: -Presented with pain, pallor and poikilothermia of RLE into foot. Possible vascular occlusion noted on imaging involving mid to distal anterior tibial artery, peroneal and posterior tibia arteries, dorsalis pedis arteries. Over read by vascular surgery of CTA aorta with runoff with R iliac occlusion and infrapop occlusions with minimal runoff to foot. Clinically, foot is ischemic. She was started on a heparin drip overnight and she went urgently with vascular surgery on 01/22 for angiography and thrombectomy. An old clot was removed from the right iliac and some clot was removed from the right leg, however no flow was able to be restored to the right foot. It seemed this had likely been going on for longer than initially thought. Developed bleeding from right groin site through wound VAC placed due to excessive serous drainage on closure. 300 mL EBL during surgery and another 500 mL EBL in the wound vacuum postoperatively. Had brief hypotension which responded to IV fluid bolus -Is in the ICU in case of need for vasopressor support -Hold heparin gtt given ongoing bleeding -Type and cross for 2 units of blood and give 1 unit now, follow serial CBC -Continue pain control with Tylenol, Morphine PRN -Vascular Surgery Consultation appreciated-may end up needing amputation of foot/BKA -Continue empiric Zosyn -Give IV calcium given blood transfusion, bleeding, hypotension, and hypocalcemia #Elevated LFTs: Total bilirubin, AST, ALT, and alkaline phosphatase all elevated but trending downward. Most likely side effect of recent chemotherapy. Liver with dilated intra and extrahepatic ducts on CT, history of cholecystectomy. Could get MRCP but unstable at this time to do so. No evidence of cirrhosis. INR is elevated here and during last admission and improved with vitamin K supplementation and is likely from nutritional deficiencies. -Continue to follow LFTs -Consider MRCP if stabilizes #Metastatic ovarian cancer with carcinomatosis and malignant pleural effusion/malignant ascites-Patient with diffusely metastatic ovarian cancer with pleural effusions and ascites. Recently started on Chemotherapy And had plan for debulking surgery after first 3 cycles of chemotherapy. -Appreciate hematology/oncology consultation -Plan for IR consultation for possible paracentesis due to significant ascites and abdominal distention -Possible Pleurx catheter placement-defer to pulmonology #Elevated troponin/myocardial demand ischemia-Patient denies chest pain. Troponin is elevated at 229.6 and peaked at 300. No ischemic changes on EKG -Telemetry monitoring #Hypoxia/malignant pleural effusion/COPD: Secondary to pleural effusions, not having COPD exacerbation -Discontinue prednisone and discontinue IV Lasix while giving IV fluids for hypotension -May need repeat thoracentesis if progression versus Pleurx catheter placement #Hypothyroidism: Chronic. Stable. TSH elevated with normal T4. -Continue Synthroid #DM2-Chronic -Continue Lantus and NovoLog and adjust as needed #Anxiety/Depression-anxiety exacerbated by current significant medical issues -Continue Fluoxetine, clonazepam -She is only on olanzapine I believe for nausea related to chemotherapy-due for 1 more dose on 01/22 then stop DVT prophylaxis-heparin drip is now stopped due to bleeding, avoiding SCDs due to PID Disposition-transfer to ICU, with critical status and prognosis quite guarded. Discussed care at length with her sister/POA on the phone on 01/22. Her sister is going to try to come up from [place] in the near future. Consult palliative medicine for goals of care Admission and Anticipated Discharge Date Admission Date: January 22, 2025 Subjective Patient seen in ICU after return from vascular surgery. She was losing a lot of blood into the wound vacuum from her right groin wound. She had already lost 500 mL of blood and her blood pressures transiently were in the 80s systolic on the A-line. She was given an IV fluid bolus, IV calcium, and typed and crossed for 2 units of blood. She had been given some morphine for pain and was a bit lethargic but was able to answer questions when I saw her. She asked "am I going to live?" I did discuss her care in detail with her sister on the phone and made her aware of her guarded prognosis. Unfortunately, vascular surgery was not able to fully restore blood flow to the foot. Physical Exam Constitutional: + ill appearing; no acute distress Respiratory: normal respiratory effort, lungs clear to auscultation Cardiovascular: Rate/Rhythm: regular rate and regular rhythm Heart Sounds: no murmur Vessels: + dorsalis pedis pulses abnormal (Not on right) Extremities: + edema (3+ edema of the lower extremities to the thighs bilaterally) With mottled cool grayish colored right foot Gastrointestinal (Abdomen): Inspection/Auscultation: + abdomen distended and normal bowel sounds Percussion/Palpation: abdomen soft (Softly distended); abdomen nontender Psychiatric: Orientation: alert, oriented to person, oriented to place and cooperative Results & Data Results & Data Vital Signs (Past 12 Hours) Vital Signs Temp Pulse Pulse Pulse Resp BP BP 01/22/25 18:22 99/69 L 01/22/25 18:08 98 H 01/22/25 18:03 96 H 13 01/22/25 18:00 93 H 14 01/22/25 18:00 98/60 L 01/22/25 18:00 98/60 L 01/22/25 18:00 98/60 L 01/22/25 18:00 98/60 L 01/22/25 17:45 96 H 15 01/22/25 17:44 101/69 01/22/25 17:24 95 H 16 01/22/25 17:19 01/22/25 17:15 99 H 16 01/22/25 17:13 120/82 01/22/25 17:13 120/82 01/22/25 17:07 86/55 L 01/22/25 17:07 86/55 L 01/22/25 17:07 86/55 L 01/22/25 17:00 107/68 01/22/25 16:45 105/69 01/22/25 16:45 105/69 01/22/25 16:39 88 18 01/22/25 16:36 90 16 01/22/25 16:30 93/61 L 01/22/25 16:30 93/61 L 01/22/25 16:30 93/61 L 01/22/25 16:27 91 H 17 01/22/25 16:15 107/67 01/22/25 16:15 107/67 01/22/25 16:15 107/67 01/22/25 16:15 93 H 18 01/22/25 16:06 94 H 18 01/22/25 16:00 100/62 01/22/25 15:57 96 H 18 01/22/25 15:49 95 H 16 01/22/25 15:45 110/75 01/22/25 15:45 110/75 01/22/25 15:39 97 H 21 01/22/25 15:30 102/58 L 01/22/25 15:10 99 H 19 104/71 01/22/25 15:00 103 H 17 101/64 01/22/25 14:50 37.2 C 102 H 22 128/70 01/22/25 14:40 112 H 22 141/90 H 01/22/25 14:30 113 H 19 143/81 H 01/22/25 14:24 37.9 C H 108 H 16 148/76 H 01/22/25 11:10 36.8 C 102 H 137/81 01/22/25 09:30 104 H 17 137/60 01/22/25 09:00 95 H 20 131/66 01/22/25 08:31 103 H 134/95 01/22/25 08:00 95 H 20 126/68 01/22/25 07:33 91 H 01/22/25 07:30 94 H 110/77 01/22/25 07:17 93 H 16 BP Pulse Ox O2 Del Method O2 Flow Rate 01/22/25 18:22 01/22/25 18:08 01/22/25 18:03 99 Nasal Cannula 2 01/22/25 18:00 01/22/25 18:00 01/22/25 18:00 01/22/25 18:00 01/22/25 18:00 01/22/25 17:45 99 01/22/25 17:44 01/22/25 17:24 99 01/22/25 17:19 Nasal Cannula 2 01/22/25 17:15 98 Nasal Cannula 2 01/22/25 17:13 01/22/25 17:13 01/22/25 17:07 01/22/25 17:07 01/22/25 17:07 01/22/25 17:00 01/22/25 16:45 01/22/25 16:45 01/22/25 16:39 97 01/22/25 16:36 97 Nasal Cannula 2 01/22/25 16:30 01/22/25 16:30 01/22/25 16:30 01/22/25 16:27 98 01/22/25 16:15 01/22/25 16:15 01/22/25 16:15 01/22/25 16:15 97 01/22/25 16:06 98 01/22/25 16:00 01/22/25 15:57 100 01/22/25 15:49 97 Nasal Cannula 2 01/22/25 15:45 01/22/25 15:45 01/22/25 15:39 97 01/22/25 15:30 01/22/25 15:10 97/52 L 96 Nasal Cannula 2 01/22/25 15:00 97/47 L 96 Nasal Cannula 2 01/22/25 14:50 97/50 L 95 Nasal Cannula 2 01/22/25 14:40 145/58 H 95 Nasal Cannula 2 01/22/25 14:30 141/65 H 96 Oxymask 8 01/22/25 14:24 152/90 H 94 Oxymask 8 01/22/25 11:10 93 Room Air 01/22/25 09:30 96 Room Air 01/22/25 09:00 94 01/22/25 08:31 95 Room Air 01/22/25 08:00 93 01/22/25 07:33 01/22/25 07:30 01/22/25 07:17 94 Room Air Laboratory Results CBC x 2, BMP, LFTs, troponin reviewed PG Care Time/CCT Total # of Minutes Spent Total Time Spent with Patient: Total time spent is greater than 50% in coordination of care (as documented) at patient's floor/unit and/or counseling patient: Coding Level of Care Code 94332 SUB INP/OBS CARE 3/50MIN Diagnoses Hemorrhagic shock R57.8 Vascular occlusion I99.8 Elevated LFTs R79.89 Elevated troponin R79.89 Pleural effusion J90
[2025-01-22] MEDS: CALCIUM GLUCONATE 1,000 MG/60 ML BAG IV SCH (19:23)
[2025-01-22 20:24] LABS: Partial Thromboplastin Ratio 1.9; Partial Thromboplastin Time 51 Seconds (21-31)
[2025-01-22] MEDS: OLANZAPINE 2.5 MG TAB PO SCH (20:59)
[2025-01-22] MEDS: MONTELUKAST SODIUM 10 MG TABLET PO SCH (21:00)
[2025-01-22 22:03] LABS: ANTI-Xa, UFH(UnfractionatedHep < 0.10 IU/ml (0.3-0.7); INR 1.8 (0.9-1.1); Partial Thromboplastin Ratio 1.7; Partial Thromboplastin Time 46 Seconds (21-31); Prothrombin Time 18.9 Seconds (9.0-12.0)
[2025-01-22] MEDS ORDERED: Heparin IV Adult Wt-Based Low-Dose *NO* INITIAL Bolus Protocol IV STA (22:43)
--- NOTE | 2025-01-22 22:54 | Communication Note ---
Date of Service: January 22, 2025 Wound vac occluded, moderate ling string clot removed from connection site and extending back to vac. Noted large clot under dressing with oozing on medial and lateral sides. Did discuss with Dr. Grimes in regards to drain not functioning and clot. Change wafer and tubing, if does not return to function, then remove sponge and pack the wound with wet to dry gauze. - Nursing obtained the supplies and changed dressing and suction tubing from drain to wound vac, large clot removed from the proximal end of the incision. There was no brisk bleeding and cleared with dabbing the wound edges. Once changed and overlay placed, good suction and seal was noted. Vac maintaining set suction level and no lead, drainage appropriate and has slowed down since beginning of shift. For her arterial occlusion of her foot: - Blood pressures have improved and stabilized following transfusion of PRBC as well as urine output increased. - As above no active bleeding or hemorrhaging appreciated from wound- and appears as now normal wound drainage - Coags checked with INR, PTT, and anti-Xa. Levels stable and without overt bleeding will start heparin without bolus- discussed with attending physician prior to starting. Will follow anti- Xa per protocol and HGB level in the morning Don ZUNIGA ([facility]-)
[2025-01-22] MEDS: HEPARIN 25000 UNIT/500 ML D5W 25,000 UNITS/500 ML BAG IV SCH (23:30)
[2025-01-23 04:58] LABS: Hematocrit (blood only) 25.4 % (37.0-47.0); Hemoglobin 8.4 g/dl (12.0-16.0); Mean Corpuscular Hemoglobin 27.8 pg (25.0-34.0); Mean Corpuscular Hgb Conc 33.1 g/dL (32.0-36.0); Mean Corpuscular Volume 84.1 fL (80.0-100.0); Mean Platelet Volume 10.7 fL (9.4-12.4); Nucleated RBC # (auto) 0.02 K/uL (0.00-0.12); Nucleated RBC % (auto) 0.3 %; Platelet Count 144 K/uL (130-400); RDW Coefficient of Variation 16.3 % (11.5-14.5); RDW Standard Deviation 49.6 fL (36.4-46.3); Red Blood Count 3.02 M/uL (4.20-5.40); White Blood Count 6.42 K/ul (4.8-10.8)
[2025-01-23 05:15] LABS: Albumin Level 1.8 gm/dl (3.4-5.0); BUN Creatinine Ratio 38.5 (10-20); Bilirubin Direct 0.7 mg/dl (0-0.2); Bilirubin,Total 1.3 mg/dl (0.2-1.0); Calcium 7.4 mg/dl (8.6-10.3); Creatinine Clr Calc Pharmacy 40.1 ml/min; Magnesium 1.8 mg/dl (1.7-2.4); Potassium 4.2 mmol/L (3.5-5.1); Total Protein 3.9 gm/dl (6.0-8.3)
[2025-01-23] MEDS: MAGNESIUM SULFATE / D5W 1 GM/100 ML BAG IV SCH (05:54)
[2025-01-23 06:25] LABS: ANTI-Xa, UFH(UnfractionatedHep 0.33 IU/ml (0.3-0.7)
--- NOTE | 2025-01-23 08:07 | Critical Care Progress Note ---
Date of Service January 23, 2025 Assessment & Plan (1) Ischemic foot: (2) Peritoneal carcinomatosis: (3) Ascites: (4) Pleural effusion: Plan Impression: 69-year-old female with history of asthma now with widely metastatic ovarian carcinoma status postchemotherapy with malignant pleural effusions and malignant ascites admitted with ischemic lower extremity. I suspect that her shortness of breath and wheezing are likely related to the moderate-sized bilateral pleural effusions. Recommendations: 1. Ischemic lower extremity. Per vascular surgery. Continue pain control per surgery. Heparin started without significant bleeding 2. Malignant pleural effusions: Discussed with patient at bedside. Repeat thoracentesis only likely to offer her short-term clinical benefit given the malignant ascites suspect that effusions would rapidly reaccumulate. Discussed indwelling pleural catheter placement with her. She is agreeable to proceed. Will hold heparin for 4 hours and rechecked in a level. She thinks the right is more problematic than the left so we will pursue initial Pleurx catheter on the right and consider placement on the left depending on clinical response. Okay to restart heparin about 4 hours after procedure without bolus. 3. Asthma: Continue inhalers. Patient's critical care issues are resolved. She can transfer out of the ICU. Critical care services will sign off but will continue to follow her for her malignant effusions and pulmonary issues. Feel free to reach out to us with questions. Admission and Anticipated Discharge Date Admission Date: January 22, 2025 Subjective Patient seen and examined. EMR reviewed. Discussed with bedside critical care nurse and on multidisciplinary rounds as well as with overnight critical care YISSEL. Patient is doing reasonably well this morning. Her right foot is less sensation from the ankle down but the pain is better. Remains cool to touch. Wound VAC was replaced last evening. Minimal output. She received 1 unit of packed cells. The patient states her breathing is better. She is feeling better overall. She offers no new complaints this morning. She is tolerating a diet. Review of Systems Review of Systems: All systems reviewed & are unremarkable except as noted in Subjective Physical Exam Constitutional: WD/WN, vitals as above + ill appearing, + obese and + frail appearing; not in distress Respiratory: normal respiratory effort; no respiratory distress Auscultation: + diminished lung sounds and + crackles; no wheezes Cardiovascular: Rate/Rhythm: regular rate and regular rhythm Vessels: posterior tibial pulses present (LLE easily dopplerable. RLE no doppler) and dorsalis pedis pulses present (LLE easily dopplerable. RLE no doppler); + abnormal peripheral pulses Extremities: + pedal edema and + edema (+4); + abnormal capillary refill (RLE mottled, no refill) Gastrointestinal (Abdomen): Inspection/Auscultation: + abdominal edema Percussion/Palpation: abdomen soft and + ascites; abdomen nontender Skin: + mottling (RLE, cold to ankle) Neurologic: moves all extremities (RLE toes decreased movement), awake and + confused (mild, slow to process); no focal motor deficits Psychiatric: Orientation: alert, oriented to person, oriented to place and cooperative; + not oriented to time Results & Data Results & Data Vital Signs (Past 12 Hours) Vital Signs Temp Pulse Pulse Resp BP Pulse Ox O2 Del Method 01/23/25 07:45 101 H 18 97 Nasal Cannula 01/23/25 06:06 102 H 17 98 01/23/25 05:09 93 H 19 97 01/23/25 04:06 91 H 20 100/63 97 01/23/25 03:42 36.6 C 01/23/25 03:24 93 H 16 97 01/23/25 03:12 92 H 24 97 01/23/25 02:30 92 H 20 96 01/23/25 02:15 104/62 01/23/25 02:06 94 H 24 98 01/23/25 01:30 120/82 01/23/25 01:27 94 H 29 H 97 01/23/25 01:21 96 H 32 H 98 01/23/25 01:15 107/66 01/23/25 01:00 109/73 01/23/25 00:48 96 H 16 98 01/23/25 00:42 95 H 23 92/68 L 98 01/23/25 00:30 97 H 20 105/75 98 01/23/25 00:20 99 H 01/23/25 00:15 85/65 L 01/23/25 00:06 100 H 28 H 98 01/23/25 00:03 101 H 21 99 01/23/25 00:01 106/80 01/22/25 23:54 102 H 19 100 01/22/25 23:45 104/70 01/22/25 23:33 103 H 18 99 01/22/25 23:30 106 H 15 104/89 93 01/22/25 23:21 101 H 18 99 01/22/25 23:16 113/95 01/22/25 22:54 97 H 18 100 01/22/25 22:33 36.6 C 100 H 18 115/62 100 01/22/25 22:29 36.6 C 100 H 18 115/62 100 01/22/25 22:06 99 H 17 100 01/22/25 21:33 36.6 C 100 H 21 105/56 L 100 01/22/25 21:06 104 H 14 100 01/22/25 21:03 36.6 C 102 H 22 106/59 L 100 01/22/25 20:48 36.4 C L 107 H 18 109/60 100 01/22/25 20:47 36.4 C L 107 H 18 109/60 100 01/22/25 20:45 107 H 16 104/72 95 01/22/25 20:30 103 H 18 91/72 L 92 01/22/25 20:30 36.6 C 103 H 16 110/59 L 100 01/22/25 20:16 Nasal Cannula 01/22/25 20:10 104 H 18 100 Nasal Cannula O2 Flow Rate 01/23/25 07:45 2 01/23/25 06:06 01/23/25 05:09 01/23/25 04:06 01/23/25 03:42 01/23/25 03:24 01/23/25 03:12 01/23/25 02:30 01/23/25 02:15 01/23/25 02:06 01/23/25 01:30 01/23/25 01:27 01/23/25 01:21 01/23/25 01:15 01/23/25 01:00 01/23/25 00:48 01/23/25 00:42 01/23/25 00:30 01/23/25 00:20 01/23/25 00:15 01/23/25 00:06 01/23/25 00:03 01/23/25 00:01 01/22/25 23:54 01/22/25 23:45 01/22/25 23:33 01/22/25 23:30 01/22/25 23:21 01/22/25 23:16 01/22/25 22:54 01/22/25 22:33 2 01/22/25 22:29 2 01/22/25 22:06 01/22/25 21:33 2 01/22/25 21:06 01/22/25 21:03 2 01/22/25 20:48 2 01/22/25 20:47 2 01/22/25 20:45 01/22/25 20:30 01/22/25 20:30 2 01/22/25 20:16 2 01/22/25 20:10 2 Critical Care Results & Data Vital Signs (Past 12 Hours) Vital Signs Temp Pulse Pulse Resp BP Pulse Ox O2 Del Method 01/23/25 07:45 101 H 18 97 Nasal Cannula 01/23/25 06:06 102 H 17 98 01/23/25 05:09 93 H 19 97 01/23/25 04:06 91 H 20 100/63 97 01/23/25 03:42 36.6 C 01/23/25 03:24 93 H 16 97 01/23/25 03:12 92 H 24 97 01/23/25 02:30 92 H 20 96 01/23/25 02:15 104/62 01/23/25 02:06 94 H 24 98 01/23/25 01:30 120/82 01/23/25 01:27 94 H 29 H 97 01/23/25 01:21 96 H 32 H 98 01/23/25 01:15 107/66 01/23/25 01:00 109/73 01/23/25 00:48 96 H 16 98 01/23/25 00:42 95 H 23 92/68 L 98 01/23/25 00:30 97 H 20 105/75 98 01/23/25 00:20 99 H 01/23/25 00:15 85/65 L 01/23/25 00:06 100 H 28 H 98 01/23/25 00:03 101 H 21 99 01/23/25 00:01 106/80 01/22/25 23:54 102 H 19 100 01/22/25 23:45 104/70 01/22/25 23:33 103 H 18 99 01/22/25 23:30 106 H 15 104/89 93 01/22/25 23:21 101 H 18 99 01/22/25 23:16 113/95 01/22/25 22:54 97 H 18 100 01/22/25 22:33 36.6 C 100 H 18 115/62 100 01/22/25 22:29 36.6 C 100 H 18 115/62 100 01/22/25 22:06 99 H 17 100 01/22/25 21:33 36.6 C 100 H 21 105/56 L 100 01/22/25 21:06 104 H 14 100 01/22/25 21:03 36.6 C 102 H 22 106/59 L 100 01/22/25 20:48 36.4 C L 107 H 18 109/60 100 01/22/25 20:47 36.4 C L 107 H 18 109/60 100 01/22/25 20:45 107 H 16 104/72 95 01/22/25 20:30 103 H 18 91/72 L 92 01/22/25 20:30 36.6 C 103 H 16 110/59 L 100 01/22/25 20:16 Nasal Cannula 01/22/25 20:10 104 H 18 100 Nasal Cannula O2 Flow Rate 01/23/25 07:45 2 01/23/25 06:06 01/23/25 05:09 01/23/25 04:06 01/23/25 03:42 01/23/25 03:24 01/23/25 03:12 01/23/25 02:30 01/23/25 02:15 01/23/25 02:06 01/23/25 01:30 01/23/25 01:27 01/23/25 01:21 01/23/25 01:15 01/23/25 01:00 01/23/25 00:48 01/23/25 00:42 01/23/25 00:30 01/23/25 00:20 01/23/25 00:15 01/23/25 00:06 01/23/25 00:03 01/23/25 00:01 01/22/25 23:54 01/22/25 23:45 01/22/25 23:33 01/22/25 23:30 01/22/25 23:21 01/22/25 23:16 01/22/25 22:54 01/22/25 22:33 2 01/22/25 22:29 2 01/22/25 22:06 01/22/25 21:33 2 01/22/25 21:06 01/22/25 21:03 2 01/22/25 20:48 2 01/22/25 20:47 2 01/22/25 20:45 01/22/25 20:30 01/22/25 20:30 2 01/22/25 20:16 2 01/22/25 20:10 2 Lab & Micro Results (Past 24 Hours) RBC 3.02 M/uL (4.20-5.40) L 01/23/25 WBC 6.42 K/ul (4.8-10.8) 01/23/25 Hgb 8.4 g/dl (12.0-16.0) L 01/23/25 Hct 25.4 % (37.0-47.0) L 01/23/25 MCV 84.1 fL (80.0-100.0) 01/23/25 MCH 27.8 pg (25.0-34.0) 01/23/25 MCHC 33.1 g/dL (32.0-36.0) 01/23/25 RDW Standard Deviation 49.6 fL (36.4-46.3) H 01/23/25 RDW Coefficient of Variation 16.3 % (11.5-14.5) H 01/23/25 Plt Count 144 K/uL (130-400) 01/23/25 MPV 10.7 fL (9.4-12.4) 01/23/25 Nucleated Red Blood Cells % (auto) 0.3 % 01/23 Nucleated RBC Absolute Count (auto) 0.02 K/uL (0.00-0.12) 0 01/23/25 Neutrophils (%) (Auto) 96.7 % 01/22/25 Lymphocytes (%) (Auto) 1.2 % 01/22/25 Monocytes # (Auto) 0.05 K/uL (0.11-0.59) L 01/22/25 Eosinophils # (Auto) 0.00 K/uL (0.00-0.50) 01/22/25 Immature Granulocyte % (Auto) 1.5 % 01/22/25 Neutrophils # (Auto) 10.54 K/uL (1.40-6.50) H 01/22/25 Lymphocytes # (Auto) 0.13 K/uL (1.20-3.40) L 01/22/25 Monocytes # (Auto) 0.05 K/uL (0.11-0.59) L 01/22/25 Eosinophils # (Auto) 0.00 K/uL (0.00-0.50) 01/22/25 Basophils # (Auto) 0.01 K/uL (0.00-0.20) 01/22/25 Immature Granulocyte # (Auto) 0.16 K/uL (0.01-0.20) 5 Toxic Vacuolation 1+ 01/22/25 Na 135 mmol/L (136-145) L 01/23/25 K 4.2 mmol/L (3.5-5.1) 01/23/25 Cl 103 mmol/L (98-107) 01/23/25 CO2 27 mmol/L (21-32) 01/23/25 Anion Gap 5 (3-11) 01/23/25 BUN 47 mg/dl (6-23) H 01/23/25 Creatinine 1.22 mg/dl (0.6-1.2) H 01/23/25 BUN/Creatinine Ratio 38.5 (10-20) H 01/23/25 Glu 153 mg/dl (70-99(Fasting)) H 01/23/25 Ca 7.4 mg/dl (8.6-10.3) L 01/23/25 Total Bilirubin 1.3 mg/dl (0.2-1.0) H 01/23/25 Direct Bilirubin 0.7 mg/dl (0-0.2) H 01/23/25 AST 99 U/L (13-39) H 01/23/25 ALT 69 U/L (7-52) H 01/23/25 Alkaline Phosphatase 245 U/L (34-104) H 01/23/25 TP 3.9 gm/dl (6.0-8.3) L 01/23/25 Albumin 1.8 gm/dl (3.4-5.0) L 01/23/25 Mg 1.8 mg/dl (1.7-2.4) 01/23/25 04:38 Calcium Level 7.4 mg/dl (8.6-10.3) L 01/23/25 04:38 Prothromb Time International Ratio 1.8 (0.9-1.1) H 01/22/25 21 :18 I & O Totals 24 Hours 01/22/25 01/23/25 01/24/25 06:59 06:59 06:59 Intake Total 165 / 165 3498.417 / 3498.417 1097.417 / 1097.417 Output Total 1250 / 1250 1620 / 1620 Balance -1085 / -1085 1878.417 / 1796.517 6310.417 / 1097.417 Cumulative 01/21/25 12:48 thru 01/23/25 07:56 Intake Total 4760.834 Output Total 2870 Balance 1890.834 RT Ventilator Mngmt (Last Documented) Ventilator Ordered Settings Respiratory Rate 18 01/23/25 07:45 Ventilator - PT Measurements Respiratory Rate 18 Coding Level of Care Code 43767 SUB INP/OBS CARE 3/50MIN Diagnoses Ischemic foot I99.8 Peritoneal carcinomatosis C78.6 Ascites R18.8 Ascites type: other type Pleural effusion J90 (3) Ascites Ascites type: other type Qualified Code(s): R18.8 - Other ascites
[2025-01-23] MEDS: CHOLECALCIFEROL 25 MCG (1000 UNITS) TAB PO SCH (11:02)
--- NOTE | 2025-01-23 11:37 | Hospitalist Progress Note ---
Date of Service January 23, 2025 Assessment & Plan (1) Hemorrhagic shock: (2) Vascular occlusion: (3) Elevated LFTs: (4) Elevated troponin: (5) Pleural effusion: Plan This patient is a 69-year-old female with recently diagnosed metastatic ovarian cancer with carcinomatosis and malignant pleural effusions/malignant ascites, hypothyroidism, DM2, anxiety/depression, COPD/asthma, and hyperlipidemia who is admitted with right ischemic limb from vascular occlusion as well as acute resp iratory failure with hypoxemia secondary to worsening pleural effusions and malignant ascites. #Hemorrhagic shock/Vascular occlusion: -Presented with pain, pallor and poikil othermia of RLE into foot. Possible vascular occlusion noted on imaging involving mid to distal anterior tibial artery, peroneal and posterior tibia arteries, dorsalis pedis arteries. Over read by vascular surgery of CTA aorta with runoff with R iliac occlusion and infrapop occlusions with minimal runoff to foot. Clinically, foot is ischemic. She was started on a heparin drip and went urgently with vascular surgery on 01/22 for angiography and thrombectomy. An old clot was removed from the right iliac with restored blood flow and some clot was removed from the right leg, however no flow was able to be restored to the right foot. It seemed this had likely been going on for longer than initially thought. Developed bleeding from right groin site through wound VAC placed due to excessive serous drainage on closure. 300 mL EBL during surgery and another 500 mL EBL in the wound vacuum postoperatively. Had brief hypotension which responded to IV fluid bolus and was transfused 1 unit PRBCs on 01/22 Never needed vasopressors and is now stabilized, hemoglobin stable at 8.4- downgrade out of ICU -Continue heparin drip -Follow CBC and transfuse if has active bleeding and hemoglobin less than 7-8 -Continue pain control with Tylenol, Morphine PRN -Vascular Surgery Consultation appreciated-will likely need an AKA of the RLE early next week -Continue empiric Zosyn #Elevated LFTs: Total bilirubin, AST, ALT, and alkaline phosphatase all elevated but continue to be trending downward. Most likely side effect of recent chemotherapy. Liver with dilated intra and extrahepatic ducts on CT, history of cholecystectomy. Could get MRCP but unstable at this time to do so. No evidence of cirrhosis. INR is elevated here and during last admission and improved with vitamin K supplementation and is likely from nutritional deficiencies. -Continue to follow LFTs -Consider MRCP if stabilizes #Metastatic ovarian cancer with carcinomatosis and malignant pleural effusion/malignant ascites-Patient with diffusely metastatic ovarian cancer with pleural effusions and ascites. Recently started on Chemotherapy And had plan for debulking surgery after first 3 cycles of chemotherapy. With impending leg amputation, chemotherapy would have to be delayed. Appreciate palliative medicine consultation. Appreciate hematology/oncology recommendatio ns -Check [id number] trending downward, patient and her sister are more amenable to undergoing amputation with the hopes to resume chemotherapy in the future -Plan for IR paracentesis due to significant ascites and abdominal distention when more stable -Pleurx catheter placement per pulmonology on 01/23 #Elevated troponin/myocardial demand ischemia-Patient denies chest pain. Troponin is elevated at 229.6 and peaked at 300. No ischemic changes on EKG -Telemetry monitoring #Hypoxia/malignant pleural effusion/COPD: Secondary to pleural effusions, not having COPD exacerbation, no need for prednisone or IV Lasix -Pleurx catheter placement on 01/23 on the right, may need Pleurx catheter on the left -Wean off supplemental O2 as able to to keep pulse ox greater than 90% #Hypothyroidism: Chronic. Stable. TSH elevated with normal T4. -Continue Synthroid #DM2-Chronic hemoglobin A1c 7.5% in 10/2024 -Continue Lantus and NovoLog and adjust as needed #Anxiety/Depression-anxiety exacerbated by current significant medical issues -Continue Fluoxetine, clonazepam as needed DVT prophylaxis-heparin drip Disposition-downgrade out of ICU to PCU. Condition is improved but still guarded. Discussed care at length with her sister/POA on the phone again on 01/23. Her sister is going to try to come up from [place] before the amputation surgery next week. Admission and Anticipated Discharge Date Admission Date: January 22, 2025 Subjective Patient much more alert and awake today, complains of pain in her right groin. She cannot feel her right foot. She does have pain in the right leg when touched. She is feeling somewhat short of breath and also coughing, requesting cough medicine. Blood pressures improved after blood transfusion. Clot was evacuated from her right groin wound and wound vacuum was replaced. She is no longer draining blood from the wound vacuum. She is also going to have a right sided Pleurx catheter placed today by pulmonology. Patient reports overall feeling better than yesterday. She understands that she might need an amputation of the leg. I discussed her care with the webmaster, hematology/oncology, and the patient's sister on the phone. Physical Exam Constitutional: no acute distress Respiratory: normal respiratory effort Auscultation: + diminished lung sounds (At bases bilaterally); no crackles, no rhonchi and no wheezes Cardiovascular: Rate/Rhythm: regular rate and regular rhythm Heart Sounds: no murmur Vessels: + dorsalis pedis pulses abnormal (Not on right) Extremities: + edema (3+ edema of the lower extremities to the thighs bilaterally) Gastrointestinal (Abdomen): Inspection/Auscultation: + abdomen distended and normal bowel sounds Percussion/Palpation: abdomen soft (Softly distended); abdomen nontender Musculoskeletal: Right foot with severe mottling and vivas color, no sensation to light touch, positive tenderness to palpation of the right distal leg Psychiatric: Orientation: alert, oriented to person, oriented to place and cooperative Results & Data Results & Data Vital Signs (Past 12 Hours) Vital Signs Temp Pulse Pulse Resp BP Pulse Ox O2 Del Method 01/23/25 11:12 Nasal Cannula 01/23/25 10:42 36.8 C 01/23/25 10:09 96 H 20 92 01/23/25 09:03 96 H 20 90 01/23/25 09:00 103/60 01/23/25 08:54 101 H 22 90 01/23/25 08:53 117/70 01/23/25 08:48 99 H 22 88 L 01/23/25 08:00 113/70 01/23/25 08:00 100 H 19 84 L 01/23/25 07:45 101 H 18 97 Nasal Cannula 01/23/25 07:00 98 H 19 96 01/23/25 06:06 102 H 17 98 01/23/25 05:09 93 H 19 97 01/23/25 04:06 91 H 20 100/63 97 01/23/25 03:42 36.6 C 01/23/25 03:24 93 H 16 97 01/23/25 03:12 92 H 24 97 01/23/25 02:30 92 H 20 96 01/23/25 02:15 104/62 01/23/25 02:06 94 H 24 98 01/23/25 01:30 120/82 01/23/25 01:27 94 H 29 H 97 01/23/25 01:21 96 H 32 H 98 01/23/25 01:15 107/66 01/23/25 01:00 109/73 01/23/25 00:48 96 H 16 98 01/23/25 00:42 95 H 23 92/68 L 98 01/23/25 00:30 97 H 20 105/75 98 01/23/25 00:20 99 H 01/23/25 00:15 85/65 L 01/23/25 00:06 100 H 28 H 98 01/23/25 00:03 101 H 21 99 01/23/25 00:01 106/80 01/22/25 23:54 102 H 19 100 01/22/25 23:45 104/70 O2 Flow Rate 01/23/25 11:12 2 01/23/25 10:42 01/23/25 10:09 01/23/25 09:03 01/23/25 09:00 01/23/25 08:54 01/23/25 08:53 01/23/25 08:48 01/23/25 08:00 01/23/25 08:00 01/23/25 07:45 2 01/23/25 07:00 01/23/25 06:06 01/23/25 05:09 01/23/25 04:06 01/23/25 03:42 01/23/25 03:24 01/23/25 03:12 01/23/25 02:30 01/23/25 02:15 01/23/25 02:06 01/23/25 01:30 01/23/25 01:27 01/23/25 01:21 01/23/25 01:15 01/23/25 01:00 01/23/25 00:48 01/23/25 00:42 01/23/25 00:30 01/23/25 00:20 01/23/25 00:15 01/23/25 00:06 01/23/25 00:03 01/23/25 00:01 01/22/25 23:54 01/22/25 23:45 Laboratory Results CBC, BMP, LFTs, procalcitonin reviewed PG Care Time/CCT Total # of Minutes Spent Total Time Spent with Patient: Total time spent is greater than 50% in coordination of care (as documented) at patient's floor/unit and/or counseling patient: Coding Level of Care Code 98121 SUB INP/OBS CARE 350MIN Diagnoses Hemorrhagic shock R57.8 Vascular occlusion I99.8 Elevated LFTs R79.89 Elevated troponin R79.89 Pleural effusion J90
--- NOTE | 2025-01-23 11:46 | Pharmacy Report ---
Pharmacy Glycemic Short Note 2 - Date of Service January 23, 2025 - Glycemic Short BSG Results (Last 24 hours): 01/22/25 01/22/25 01/22/25 14:27 14:44 15:44 Glucose 119 H POC Glucose 134 H 143 H 01/22/25 01/23/25 01/23/25 20:10 04:38 07:24 Glucose 153 H POC Glucose 133 H 191 H 01/23/25 11:06 Glucose POC Glucose 210 H OUTPATIENT ANTIDIABETIC REGIMEN: * Lantus 16 units Q AM * Humalog 4 units TID w/ meals * A1c = 7.5% 10/31/24 ASSESSMENT: * Type 2 diabetic admitted to ICU for hypotension, acute blood loss following thrombectomy for RLE ischemia. Glycemic consult placed last evening * Patient not requiring pressors this AM and being downgraded from ICU status * BSGs fairly well controlled. Initial insulin orders placed yesterday are reasonable starting points based upon "moderate" stress wt-based dosing and outpt insulin regimen. Will continue with these initial doses for now and adjust based upon BSG trends. PLAN FOR INPATIENT GLYCEMIC CONTROL: * Basal insulin * Lantus 10 units SQ Q AM * Bolus insulin * NovoLog per scale ACHS or Q6hrs while NPO * Goal Range: Low 110 mg/dL - High 140 mg/dL * Correction Factor: 30 mg/dL/unit * Nutritional / Prandial insulin per carb ratio of 1 unit per 10 grams CHO consumed
[2025-01-23 12:10] LABS: ANTI-Xa, UFH(UnfractionatedHep < 0.10 IU/ml (0.3-0.7)
--- NOTE | 2025-01-23 12:10 | Surgery Progress Note ---
Date of Service January 23, 2025 Assessment & Plan (1) S/P vascular surgery: Plan: This patient is postoperative day 1 from an embolectomy of her right common iliac and attempted embolectomy of her infrapopliteal's of the right leg. She is currently stable at this time. She does have bilateral pleural effusions and ascites from her stage IV ovarian cancer. She is to have a Pleurx catheter placed today. Her groin wound VAC is in place. In view of these ischemic mottled appearance of her right foot she most likely will need a an above-knee amputation in the near future. I discussed this with her sister today and with the patient. Most likely will go ahead and if there was agreeable to have an above-knee amputation performed early next week. Admission and Anticipated Discharge Date Admission Date: January 22, 2025 Subjective Patient is awake and slightly more oriented today. She is complaining of a small amount of pain in her right foot but not significant. She is complaining of numbness however and decreased sensation of the right foot. Physical Exam Constitutional: WD/WN, vitals as above Respiratory: normal respiratory effort; no respiratory distress Cardiovascular: Rate/Rhythm: regular rate and regular rhythm Extremities: + abnormal capillary refill (None on the right) Skin: + incision (Wound VAC in place to the [facility] groin) Neurologic: CN's II-XI intact bilaterally and moves all extremities; + abnormal sensation to monofilament (No sensation of right foot) Psychiatric: Orientation: alert Results & Data Vital Signs (Past 12 Hours) Vital Signs Temp Pulse Pulse Resp BP Pulse Ox O2 Del Method 01/23/25 11:40 100 H 18 92 Nasal Cannula 01/23/25 11:12 Nasal Cannula 01/23/25 10:42 36.8 C 01/23/25 10:09 96 H 20 92 01/23/25 09:03 96 H 20 90 01/23/25 09:00 103/60 01/23/25 08:54 101 H 22 90 01/23/25 08:53 117/70 01/23/25 08:48 99 H 22 88 L 01/23/25 08:00 113/70 01/23/25 08:00 100 H 19 84 L 01/23/25 07:45 101 H 18 97 Nasal Cannula 01/23/25 07:00 98 H 19 96 01/23/25 06:06 102 H 17 98 01/23/25 05:09 93 H 19 97 01/23/25 04:06 91 H 20 100/63 97 01/23/25 03:42 36.6 C 01/23/25 03:24 93 H 16 97 01/23/25 03:12 92 H 24 97 01/23/25 02:30 92 H 20 96 01/23/25 02:15 104/62 01/23/25 02:06 94 H 24 98 01/23/25 01:30 120/82 01/23/25 01:27 94 H 29 H 97 01/23/25 01:21 96 H 32 H 98 01/23/25 01:15 107/66 01/23/25 01:00 109/73 01/23/25 00:48 96 H 16 98 01/23/25 00:42 95 H 23 92/68 L 98 01/23/25 00:30 97 H 20 105/75 98 01/23/25 00:20 99 H 01/23/25 00:15 85/65 L O2 Flow Rate 01/23/25 11:40 2 01/23/25 11:12 2 01/23/25 10:42 01/23/25 10:09 01/23/25 09:03 01/23/25 09:00 01/23/25 08:54 01/23/25 08:53 01/23/25 08:48 01/23/25 08:00 01/23/25 08:00 01/23/25 07:45 2 01/23/25 07:00 01/23/25 06:06 01/23/25 05:09 01/23/25 04:06 01/23/25 03:42 01/23/25 03:24 01/23/25 03:12 01/23/25 02:30 01/23/25 02:15 01/23/25 02:06 01/23/25 01:30 01/23/25 01:27 01/23/25 01:21 01/23/25 01:15 01/23/25 01:00 01/23/25 00:48 01/23/25 00:42 01/23/25 00:30 01/23/25 00:20 01/23/25 00:15
--- NOTE | 2025-01-23 13:03 | Palliative Care Consultation ---
Date of Consultation January 23, 2025 Assessment & Plan (1) Dyspnea and respiratory abnormalities: Morphine 2 mg IV every 3 hours as needed has been ordered for severe pain and prior to PT. This order has been amended to also be available to her for significant dyspnea or air hunger. (2) Cough: Continue Tessalon Perles as ordered, 3 times daily as needed and can use the existing morphine 2 Mg IV every 3 hours as needed order for severe cough. (3) Cancer related pain: (4) Acute pain of right lower extremity: (5) Advanced care planning/counseling discussion: ACP face to face x 45min at bedside: I met with Lyn and her close friend Letty at bedside. I was also present for Dr Alves teleconference with Justin sister. The plan for now is to await tumor markers. If significant elevation (2-3x higher) then cancer surgery is unlikely to help her and transition to comfort is recommended. Sister agreed and wants to see what the labs show before a final decision re: amputation. Sister is trying to figure out a way to get here and needs help with the drive. Letty Nicholson and I spoke about the changes happening now and the best/worst case scenario. I gave her some scenarios to contemplate. We discussed CODE STATUS and went over CPR survival. We also discussed the efficacy of CPR in various medical situations from an acute recoverable issue to an end-of-life issue. Letty shared her experience about her own cancer journey as well as a family member now on hospice. Lyn was tearful but accepting and said she has a lot to think about and we agreed I will follow up Tuesday. She said there that she is afraid to be alone at the end of her life. She also stated that she did not know if she could from cancer. Extensive psychosocial support and reassurance was provided. (6) Palliative care by specialist: Introduced Palliative Medicine and explained our role in patient's care. Patient and/or family were receptive to palliative services for goals of care discussions. Reviewed we are different from hospice, a home health nurse visiting service. Plan As above Await tumor markers, then revisit GOC with regards to amputation , cancer directed therapy and surgery. pt and family (Letty & Sister) are aware that if tumor markers are up significantly then further cancer rx will not be meaningful or helpful and therefore amputation would also not be of help as her cancer is rapidly progressive/is aggressive. Thank you for allowing us to participate in the ongoing care of this patient. Please page with any additional concerns. Sandi Kim DNP Director, Palliative Medicine History of Present Illness Reason for Consultation: cervical ca, ischemic limb Attending Physician: Candice Bañuelos MD History of Present Illness Lyn is a 69-year-old female with metastatic ovarian cancer, COPD, diabetes, hypothyroid, hypercholesterolemia, who was admitted through the [facility] emergency department with shortness of breath and found to have right lower extremity ischemia. She reports significant numbness and discomfort in the right lower extremity for several weeks and has been walking very little. She is undergoing cancer directed therapy for her metastatic cancer and had 1 cycle of chemo in the last few weeks. Her cancer is a relatively new diagnosis in a few weeks. She has known carcinomatosis, a positive paracentesis and thoracentesis, splenic mets and iliac crest lesion. She continues to complain of a dry cough, dyspnea, orthopnea and fatigue. She denies chest pain. 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 She has bilateral pleural effusions and ascites from the stage IV ovarian cancer. A Pleurx catheter is being placed. There is a wound in the groin with a wound VAC in place. The lower extremity of the right side remains ischemic and mottled in appearance and discussions have been held with regards to the timing for an above-knee amputation. Allergies Allergy/AdvReac Type Severity Reaction Status Date / Time metformin Allergy Severe Verified 01/01/25 18:29 cashew nut Allergy Verified 01/04/25 12:54 hazelnut Allergy Verified 01/04/25 12:54 nut - unspecified Allergy Verified 01/04/25 12:54 peanut Allergy Verified 01/04/25 12:54 peanut oil Allergy Verified 01/04/25 12:54 pecan nut Allergy Verified 01/04/25 12:54 aspirin AdvReac Difficulty Verified 01/01/25 18:29 Breathing Home Medications Medication Instructions Recorded Confirmed Type fenofibrate micronized 200 mg 200 mg PO QPM 06/19/19 01/21/25 History capsule multivitamin 1 tab PO QAM 06/19/19 01/21/25 History simvastatin 20 mg tablet 20 mg PO QAM #90 tabs 07/10/20 01/21/25 History albuterol sulfate 0.63 mg/3 mL 0.63 mg (3 mL) continuous 12/05/24 01/21/25 Rx solution for nebulization nebulization Q4H PRN shortness of breath or wheezing #90 mL levothyroxine 50 mcg tablet 50 mcg PO DAILY 12/05/24 01/21/25 History benzonatate 100 mg capsule 100 mg PO TID PRN cough #30 caps 12/13/24 01/21/25 Rx furosemide 20 mg tablet 20 mg PO QAM 12/20/24 01/21/25 History clonazepam 0.5 mg tablet 0.5 mg PO BID 12/25/24 01/21/25 History insulin glargine 100 unit/mL (3 16 unit subcut QAM 12/25/24 01/21/25 History mL) subcutaneous pen (Lantus Solostar U-100 Insulin) insulin lispro 100 unit/mL 4 unit subcut WM 12/25/24 01/21/25 History subcutaneous pen (Humalog KwikPen (U-100) Insulin) ipratropium 20 mcg-albuterol 100 1 puff inhalation QID 12/25/24 01/21/25 History mcg/actuation mist for inhalation (Combivent Respimat) tezepelumab-ekko 210 mg/1.91 mL 210 mg subcut UD 12/25/24 01/21/25 History (110 mg/mL) subcutaneous pen injector (Tezspire) tiotropium bromide 18 mcg capsule 18 mcg inhalation QAM 12/25/24 01/21/25 History with inhalation device brexpiprazole 3 mg tablet (Rexulti) 3 mg PO QPM 01/01/25 01/21/25 History fluoxetine 40 mg capsule 80 mg PO DAILY 01/01/25 01/21/25 History acetaminophen 325 mg tablet 650 mg PO Q4 PRN Fever Or Pain 01/21/25 01/21/25 History budesonide 180 mcg/actuation 1 inh inhalation BID 01/21/25 01/21/25 History breath activated powder inhaler (Pulmicort Flexhaler) cholecalciferol (vitamin D3) 25 25 mcg PO QAM 01/21/25 01/21/25 History mcg (1,000 unit) capsule (Vitamin D3) ipratropium 0.5 mg-albuterol 3 mg 3 ml inhalation QID 01/21/25 01/21/25 History (2.5 mg base)/3 mL nebulization soln loperamide 2 mg tablet (Imodium 2 mg PO Q6H PRN Diarrhea 01/21/25 01/21/25 History A-D) montelukast 10 mg tablet 10 mg PO HS 01/21/25 01/21/25 History (Singulair) nystatin 100,000 unit/gram topical 1 applic topical UD 01/21/25 01/21/25 History powder olanzapine 2.5 mg tablet 2.5 mg PO HS 01/21/25 01/21/25 History ondansetron 8 mg disintegrating 8 mg PO Q8H PRN N/V 01/21/25 01/21/25 History tablet prochlorperazine maleate 10 mg 10 mg PO Q6H PRN N/V 01/21/25 01/21/25 History tablet Patient History Medical History Hypertension Hypothyroidism COPD (chronic obstructive pulmonary disease) Mild tricuspid regurgitation Mild mitral regurgitation Severe persistent asthma Type 2 diabetes mellitus Anemia Dyslipidemia Non-proliferative diabetic retinopathy Stage III chronic kidney disease Venous insufficiency Family History Mother Hypertension Diabetes Father Diabetes Denies family history of Kidney disease Social History Smoking Status: Former smoker Tobacco Type: Cigarettes Age Started Using Tobacco: 21; Age Quit Using Tobacco: 63; packs per day: 2; Do You Dip or Chew Tobacco: No; Hx Alcohol Use: No Hx Substance Use: No Preferred Language: Lao Communication Ability: Effective Visual Impairment: No Limitations Hearing Ability: Normal Inspector Hot Forgings Required: No Beliefs That Will Affect Care: None marital status: Current Living Situation: Alone current occupational status: disabled How many Children do You have: 0 Feels Safe at Home: Yes Safety Concerns: Feels Safe At This Time Diet: regular caffeine: Yes (2 coffees daily) Dental Care, Regularly: No Physical Activity Frequency: Does not Exercise Seatbelt Use: always Sunscreen Use: No Do you think of yourself as: straight/heterosexual Gender Identity: Female Assistive Devices: Oxygen - Continuous Review of Systems Review of Systems: All systems reviewed & are unremarkable except as noted in Subjective Physical Exam Physical Exam: Elderly female, appears older than stated age, acutely ill, supine in bed. She is awake but at times drifts off. There is mild bitemporal wasting noted. She is frail-appearing. Respiratory effort is mildly increased. There is a intermittent dry cough. There is no stridor. Lungs are diminished with crackles. There is no wheezing noted. Heart tones are S1-S2, regular rhythm. Left lower extremity pedal pulse intact, right lower extremity no palpable pulse. Right lower extremity is mottled and cool to touch. Abdomen is soft. Bowel sounds are present. She is able to move her extremities with some overall global weakness. She is awake and alert to self and place. She is able to tell me some of her medical history. She does at times drift off. There is some cognitive impairment noted. CAM-ICU screening is negative. Results & Data Vital Signs (Past 12 Hours) Vital Signs Temp Pulse Pulse Resp BP Pulse Ox O2 Del Method 01/23/25 12:37 36.8 C 01/23/25 11:40 100 H 18 92 Nasal Cannula 01/23/25 11:12 Nasal Cannula 01/23/25 10:42 36.8 C 01/23/25 10:09 96 H 20 92 01/23/25 09:03 96 H 20 90 01/23/25 09:00 103/60 01/23/25 08:54 101 H 22 90 01/23/25 08:53 117/70 01/23/25 08:48 99 H 22 88 L 01/23/25 08:00 113/70 01/23/25 08:00 100 H 19 84 L 01/23/25 07:45 101 H 18 97 Nasal Cannula 01/23/25 07:00 98 H 19 96 01/23/25 06:06 102 H 17 98 01/23/25 05:09 93 H 19 97 01/23/25 04:06 91 H 20 100/63 97 01/23/25 03:42 36.6 C 01/23/25 03:24 93 H 16 97 01/23/25 03:12 92 H 24 97 01/23/25 02:30 92 H 20 96 01/23/25 02:15 104/62 01/23/25 02:06 94 H 24 98 01/23/25 01:30 120/82 01/23/25 01:27 94 H 29 H 97 01/23/25 01:21 96 H 32 H 98 01/23/25 01:15 107/66 O2 Flow Rate 01/23/25 12:37 01/23/25 11:40 2 01/23/25 11:12 2 01/23/25 10:42 01/23/25 10:09 01/23/25 09:03 01/23/25 09:00 01/23/25 08:54 01/23/25 08:53 01/23/25 08:48 01/23/25 08:00 01/23/25 08:00 01/23/25 07:45 2 01/23/25 07:00 01/23/25 06:06 01/23/25 05:09 01/23/25 04:06 01/23/25 03:42 01/23/25 03:24 01/23/25 03:12 01/23/25 02:30 01/23/25 02:15 01/23/25 02:06 01/23/25 01:30 01/23/25 01:27 01/23/25 01:21 01/23/25 01:15 Laboratory Results 01/23/25 01/23/25 01/23/25 Range/Units 11:23 11:06 07:24 WBC (4.8-10.8) K/ul RBC (4.20-5.40) M/uL Hgb (12.0-16.0) g/dl Hct (37.0-47.0) % MCV (80.0-100.0) fL MCH (25.0-34.0) pg MCHC (32.0-36.0) g/dL RDW Std Deviation (36.4-46.3) fL RDW Coeff of Sol (11.5-14.5) % Plt Count (130-400) K/uL MPV (9.4-12.4) fL Immature Gran % (Auto) % Neut % (Auto) % Lymph % (Auto) % Johnston % (Auto) % Eos % (Auto) % Baso % (Auto) % Neut # (Auto) (1.40-6.50) K/uL Lymph # (Auto) (1.20-3.40) K/uL Johnston # (Auto) (0.11-0.59) K/uL Eos # (Auto) (0.00-0.50) K/uL Baso # (Auto) (0.00-0.20) K/uL Immature Gran # (Auto) (0.01-0.20) K/uL Absolute Nucleated RBC (0.00-0.12) K/uL Nucleated RBC % (auto) % Toxic Vacuolation Target Cells PT (9.0-12.0) Seconds INR (0.9-1.1) APTT (21-31) Seconds PTT Ratio Fibrinogen (184-400) mg/dl Heparin Anti-Xa, Unfract < 0.10 L (0.3-0.7) IU/ml Sodium (136-145) mmol/L Potassium (3.5-5.1) mmol/L Chloride (98-107) mmol/L Carbon Dioxide (21-32) mmol/L Anion Gap (3-11) BUN (6-23) mg/dl Creatinine (0.6-1.2) mg/dl Est Cr Clr Drug Dosing ml/min eGFR BUN/Creatinine Ratio (10-20) Glucose (70-99(Fasting)) mg/dl POC Glucose 210 H 191 H (70-99) mg/dl Lactate (0.4-2.0) mmol/L Calcium (8.6-10.3) mg/dl Phosphorus (2.5-4.9) mg/dl Magnesium (1.7-2.4) mg/dl Total Bilirubin (0.2-1.0) mg/dl Direct Bilirubin (0-0.2) mg/dl AST (13-39) U/L ALT (7-52) U/L Alkaline Phosphatase (34-104) U/L Troponin I High Sens (0-14) pg/ml B-Natriuretic Peptide (0-100) pg/ml Total Protein (6.0-8.3) gm/dl Albumin (3.4-5.0) gm/dl Globulin (2.5-4.0) gm/dl Albumin/Globulin Ratio (0.9-2) Lipase (11-82) U/L CA 125 Antigen Pending Procalcitonin (0-0.5) ng/ml TSH (0.300-4.500) uIu/ml Free T4 (0.61-1.60) ng/dl Urine Color Urine Appearance (Clear) Urine pH (4.5-7.5) Ur Specific [place] (1.000-1.030) Urine Protein (Negative) Urine Glucose (UA) (Negative) Urine Ketones (Negative) Urine Blood (Negative) Urine Nitrite (Negative) Urine Bilirubin (Negative) Urine Urobilinogen (Negative) Ur Leukocyte Esterase (Negative) Urine WBC (Auto) (0-5) /hpf Urine RBC (Auto) (0-2) /hpf U Hyaline Cast (Auto) (0-2) /lpf U Epithel Cells (Auto) (0-2) /hpf Urine Bacteria (Auto) (None Seen) Adenovirus (PCR) (NotDetected) B. pertussis DNA (PCR) (NotDetected) B.parapertussis DNA PCR (NotDetected) C. pneumoniae DNA (PCR) (NotDetected) Coronavirus OC43 (PCR) (NotDetected) Coronavirus HKU1 (PCR) (NotDetected) Coronavirus 229E (PCR) (NotDetected) SARS-CoV-2 (PCR) (NotDetected) Coronavirus NL63 (PCR) (NotDetected) Human Metapneumovir PCR (NotDetected) Influenza Type A (PCR) (NotDetected) Influenza Type B (PCR) (NotDetected) M. pneumoniae (PCR) (NotDetected) Parainfluenza 1 (PCR) (NotDetected) Parainfluenza 2 (PCR) (NotDetected) Parainfluenza 3 (PCR) (NotDetected) Parainfluenza 4 (PCR) (NotDetected) RSV (PCR) (NotDetected) Entero/Rhino (PCR) (NotDetected) Blood Type Blood Type Recheck Antibody Screen Crossmatch 01/23/25 01/23/25 01/22/25 Range/Units 05:30 04:38 21:18 WBC 6.42 (4.8-10.8) K/ul RBC 3.02 L (4.20-5.40) M/uL Hgb 8.4 L (12.0-16.0) g/dl Hct 25.4 L (37.0-47.0) % MCV 84.1 (80.0-100.0) fL MCH 27.8 (25.0-34.0) pg MCHC 33.1 (32.0-36.0) g/dL RDW Std Deviation 49.6 H (36.4-46.3) fL RDW Coeff of Sol 16.3 H (11.5-14.5) % Plt Count 144 (130-400) K/uL MPV 10.7 (9.4-12.4) fL Immature Gran % (Auto) % Neut % (Auto) % Lymph % (Auto) % Johnston % (Auto) % Eos % (Auto) % Baso % (Auto) % Neut # (Auto) (1.40-6.50) K/uL Lymph # (Auto) (1.20-3.40) K/uL Johnston # (Auto) (0.11-0.59) K/uL Eos # (Auto) (0.00-0.50) K/uL Baso # (Auto) (0.00-0.20) K/uL Immature Gran # (Auto) (0.01-0.20) K/uL Absolute Nucleated RBC 0.02 (0.00-0.12) K/uL Nucleated RBC % (auto) 0.3 % Toxic Vacuolation Target Cells PT 18.9 H (9.0-12.0) Seconds INR 1.8 H (0.9-1.1) APTT 46 H (21-31) Seconds PTT Ratio 1.7 Fibrinogen (184-400) mg/dl Heparin Anti-Xa, Unfract 0.33 < 0.10 L (0.3-0.7) IU/ml Sodium 135 L (136-145) mmol/L Potassium 4.2 (3.5-5.1) mmol/L Chloride 103 (98-107) mmol/L Carbon Dioxide 27 (21-32) mmol/L Anion Gap 5 (3-11) BUN 47 H (6-23) mg/dl Creatinine 1.22 H (0.6-1.2) mg/dl Est Cr Clr Drug Dosing 40.1 ml/min eGFR 48.64 BUN/Creatinine Ratio 38.5 H (10-20) Glucose 153 H (70-99(Fasting)) mg/dl POC Glucose (70-99) mg/dl Lactate (0.4-2.0) mmol/L Calcium 7.4 L (8.6-10.3) mg/dl Phosphorus (2.5-4.9) mg/dl Magnesium 1.8 (1.7-2.4) mg/dl Total Bilirubin 1.3 H (0.2-1.0) mg/dl Direct Bilirubin 0.7 H (0-0.2) mg/dl AST 99 H (13-39) U/L ALT 69 H (7-52) U/L Alkaline Phosphatase 245 H (34-104) U/L Troponin I High Sens (0-14) pg/ml B-Natriuretic Peptide (0-100) pg/ml Total Protein 3.9 L (6.0-8.3) gm/dl Albumin 1.8 L (3.4-5.0) gm/dl Globulin (2.5-4.0) gm/dl Albumin/Globulin Ratio (0.9-2) Lipase (11-82) U/L CA 125 Antigen Procalcitonin (0-0.5) ng/ml TSH (0.300-4.500) uIu/ml Free T4 (0.61-1.60) ng/dl Urine Color Urine Appearance (Clear) Urine pH (4.5-7.5) Ur Specific [place] (1.000-1.030) Urine Protein (Negative) Urine Glucose (UA) (Negative) Urine Ketones (Negative) Urine Blood (Negative) Urine Nitrite (Negative) Urine Bilirubin (Negative) Urine Urobilinogen (Negative) Ur Leukocyte Esterase (Negative) Urine WBC (Auto) (0-5) /hpf Urine RBC (Auto) (0-2) /hpf U Hyaline Cast (Auto) (0-2) /lpf U Epithel Cells (Auto) (0-2) /hpf Urine Bacteria (Auto) (None Seen) Adenovirus (PCR) (NotDetected) B. pertussis DNA (PCR) (NotDetected) B.parapertussis DNA PCR (NotDetected) C. pneumoniae DNA (PCR) (NotDetected) Coronavirus OC43 (PCR) (NotDetected) Coronavirus HKU1 (PCR) (NotDetected) Coronavirus 229E (PCR) (NotDetected) SARS-CoV-2 (PCR) (NotDetected) Coronavirus NL63 (PCR) (NotDetected) Human Metapneumovir PCR (NotDetected) Influenza Type A (PCR) (NotDetected) Influenza Type B (PCR) (NotDetected) M. pneumoniae (PCR) (NotDetected) Parainfluenza 1 (PCR) (NotDetected) Parainfluenza 2 (PCR) (NotDetected) Parainfluenza 3 (PCR) (NotDetected) Parainfluenza 4 (PCR) (NotDetected) RSV (PCR) (NotDetected) Entero/Rhino (PCR) (NotDetected) Blood Type Blood Type Recheck Antibody Screen Crossmatch 01/22/25 01/22/25 01/22/25 Range/Units 20:10 20:06 18:02 WBC (4.8-10.8) K/ul RBC (4.20-5.40) M/uL Hgb (12.0-16.0) g/dl Hct (37.0-47.0) % MCV (80.0-100.0) fL MCH (25.0-34.0) pg MCHC (32.0-36.0) g/dL RDW Std Deviation (36.4-46.3) fL RDW Coeff of Sol (11.5-14.5) % Plt Count (130-400) K/uL MPV (9.4-12.4) fL Immature Gran % (Auto) % Neut % (Auto) % Lymph % (Auto) % Johnston % (Auto) % Eos % (Auto) % Baso % (Auto) % Neut # (Auto) (1.40-6.50) K/uL Lymph # (Auto) (1.20-3.40) K/uL Johnston # (Auto) (0.11-0.59) K/uL Eos # (Auto) (0.00-0.50) K/uL Baso # (Auto) (0.00-0.20) K/uL Immature Gran # (Auto) (0.01-0.20) K/uL Absolute Nucleated RBC (0.00-0.12) K/uL Nucleated RBC % (auto) % Toxic Vacuolation Target Cells PT (9.0-12.0) Seconds INR (0.9-1.1) APTT 51 H (21-31) Seconds PTT Ratio 1.9 Fibrinogen (184-400) mg/dl Heparin Anti-Xa, Unfract (0.3-0.7) IU/ml Sodium (136-145) mmol/L Potassium (3.5-5.1) mmol/L Chloride (98-107) mmol/L Carbon Dioxide (21-32) mmol/L Anion Gap (3-11) BUN (6-23) mg/dl Creatinine (0.6-1.2) mg/dl Est Cr Clr Drug Dosing ml/min eGFR BUN/Creatinine Ratio (10-20) Glucose (70-99(Fasting)) mg/dl POC Glucose 133 H (70-99) mg/dl Lactate (0.4-2.0) mmol/L Calcium (8.6-10.3) mg/dl Phosphorus (2.5-4.9) mg/dl Magnesium (1.7-2.4) mg/dl Total Bilirubin (0.2-1.0) mg/dl Direct Bilirubin (0-0.2) mg/dl AST (13-39) U/L ALT (7-52) U/L Alkaline Phosphatase (34-104) U/L Troponin I High Sens (0-14) pg/ml B-Natriuretic Peptide (0-100) pg/ml Total Protein (6.0-8.3) gm/dl Albumin (3.4-5.0) gm/dl Globulin (2.5-4.0) gm/dl Albumin/Globulin Ratio (0.9-2) Lipase (11-82) U/L CA 125 Antigen Procalcitonin (0-0.5) ng/ml TSH (0.300-4.500) uIu/ml Free T4 (0.61-1.60) ng/dl Urine Color Urine Appearance (Clear) Urine pH (4.5-7.5) Ur Specific [place] (1.000-1.030) Urine Protein (Negative) Urine Glucose (UA) (Negative) Urine Ketones (Negative) Urine Blood (Negative) Urine Nitrite (Negative) Urine Bilirubin (Negative) Urine Urobilinogen (Negative) Ur Leukocyte Esterase (Negative) Urine WBC (Auto) (0-5) /hpf Urine RBC (Auto) (0-2) /hpf U Hyaline Cast (Auto) (0-2) /lpf U Epithel Cells (Auto) (0-2) /hpf Urine Bacteria (Auto) (None Seen) Adenovirus (PCR) (NotDetected) B. pertussis DNA (PCR) (NotDetected) B.parapertussis DNA PCR (NotDetected) C. pneumoniae DNA (PCR) (NotDetected) Coronavirus OC43 (PCR) (NotDetected) Coronavirus HKU1 (PCR) (NotDetected) Coronavirus 229E (PCR) (NotDetected) SARS-CoV-2 (PCR) (NotDetected) Coronavirus NL63 (PCR) (NotDetected) Human Metapneumovir PCR (NotDetected) Influenza Type A (PCR) (NotDetected) Influenza Type B (PCR) (NotDetected) M. pneumoniae (PCR) (NotDetected) Parainfluenza 1 (PCR) (NotDetected) Parainfluenza 2 (PCR) (NotDetected) Parainfluenza 3 (PCR) (NotDetected) Parainfluenza 4 (PCR) (NotDetected) RSV (PCR) (NotDetected) Entero/Rhino (PCR) (NotDetected) Blood Type Blood Type Recheck A Positive Antibody Screen Crossmatch 01/22/25 01/22/25 01/22/25 Range/Units 17:52 16:50 15:44 WBC 9.13 9.43 (4.8-10.8) K/ul RBC 2.96 L 2.93 L (4.20-5.40) M/uL Hgb 8.3 L 8.3 L (12.0-16.0) g/dl Hct 25.7 L 25.2 L (37.0-47.0) % MCV 86.8 86.0 (80.0-100.0) fL MCH 28.0 28.3 (25.0-34.0) pg MCHC 32.3 32.9 (32.0-36.0) g/dL RDW Std Deviation 54.0 H 54.7 H (36.4-46.3) fL RDW Coeff of Sol 17.3 H 17.3 H (11.5-14.5) % Plt Count 188 190 (130-400) K/uL MPV 10.7 10.8 (9.4-12.4) fL Immature Gran % (Auto) % Neut % (Auto) % Lymph % (Auto) % Johnston % (Auto) % Eos % (Auto) % Baso % (Auto) % Neut # (Auto) (1.40-6.50) K/uL Lymph # (Auto) (1.20-3.40) K/uL Johnston # (Auto) (0.11-0.59) K/uL Eos # (Auto) (0.00-0.50) K/uL Baso # (Auto) (0.00-0.20) K/uL Immature Gran # (Auto) (0.01-0.20) K/uL Absolute Nucleated RBC 0.02 (0.00-0.12) K/uL Nucleated RBC % (auto) 0.2 % Toxic Vacuolation Target Cells PT 19.7 H (9.0-12.0) Seconds INR 1.9 H (0.9-1.1) APTT > 139 H* (21-31) Seconds PTT Ratio > 4.9 Fibrinogen 370 (184-400) mg/dl Heparin Anti-Xa, Unfract (0.3-0.7) IU/ml Sodium (136-145) mmol/L Potassium (3.5-5.1) mmol/L Chloride (98-107) mmol/L Carbon Dioxide (21-32) mmol/L Anion Gap (3-11) BUN (6-23) mg/dl Creatinine (0.6-1.2) mg/dl Est Cr Clr Drug Dosing ml/min eGFR BUN/Creatinine Ratio (10-20) Glucose (70-99(Fasting)) mg/dl POC Glucose 143 H (70-99) mg/dl Lactate (0.4-2.0) mmol/L Calcium (8.6-10.3) mg/dl Phosphorus (2.5-4.9) mg/dl Magnesium (1.7-2.4) mg/dl Total Bilirubin (0.2-1.0) mg/dl Direct Bilirubin (0-0.2) mg/dl AST (13-39) U/L ALT (7-52) U/L Alkaline Phosphatase (34-104) U/L Troponin I High Sens 286.5 H* (0-14) pg/ml B-Natriuretic Peptide (0-100) pg/ml Total Protein (6.0-8.3) gm/dl Albumin (3.4-5.0) gm/dl Globulin (2.5-4.0) gm/dl Albumin/Globulin Ratio (0.9-2) Lipase (11-82) U/L CA 125 Antigen Procalcitonin (0-0.5) ng/ml TSH (0.300-4.500) uIu/ml Free T4 (0.61-1.60) ng/dl Urine Color Urine Appearance (Clear) Urine pH (4.5-7.5) Ur Specific [place] (1.000-1.030) Urine Protein (Negative) Urine Glucose (UA) (Negative) Urine Ketones (Negative) Urine Blood (Negative) Urine Nitrite (Negative) Urine Bilirubin (Negative) Urine Urobilinogen (Negative) Ur Leukocyte Esterase (Negative) Urine WBC (Auto) (0-5) /hpf Urine RBC (Auto) (0-2) /hpf U Hyaline Cast (Auto) (0-2) /lpf U Epithel Cells (Auto) (0-2) /hpf Urine Bacteria (Auto) (None Seen) Adenovirus (PCR) (NotDetected) B. pertussis DNA (PCR) (NotDetected) B.parapertussis DNA PCR (NotDetected) C. pneumoniae DNA (PCR) (NotDetected) Coronavirus OC43 (PCR) (NotDetected) Coronavirus HKU1 (PCR) (NotDetected) Coronavirus 229E (PCR) (NotDetected) SARS-CoV-2 (PCR) (NotDetected) Coronavirus NL63 (PCR) (NotDetected) Human Metapneumovir PCR (NotDetected) Influenza Type A (PCR) (NotDetected) Influenza Type B (PCR) (NotDetected) M. pneumoniae (PCR) (NotDetected) Parainfluenza 1 (PCR) (NotDetected) Parainfluenza 2 (PCR) (NotDetected) Parainfluenza 3 (PCR) (NotDetected) Parainfluenza 4 (PCR) (NotDetected) RSV (PCR) (NotDetected) Entero/Rhino (PCR) (NotDetected) Blood Type A Positive Blood Type Recheck Antibody Screen NEGATIVE Crossmatch See Detail 01/22/25 01/22/25 01/22/25 Range/Units 14:44 14:27 09:08 WBC 10.89 H (4.8-10.8) K/ul RBC 3.48 L (4.20-5.40) M/uL Hgb 9.8 L (12.0-16.0) g/dl Hct 29.8 L (37.0-47.0) % MCV 85.6 (80.0-100.0) fL MCH 28.2 (25.0-34.0) pg MCHC 32.9 (32.0-36.0) g/dL RDW Std Deviation 53.2 H (36.4-46.3) fL RDW Coeff of Sol 17.3 H (11.5-14.5) % Plt Count 219 (130-400) K/uL MPV 10.3 (9.4-12.4) fL Immature Gran % (Auto) 1.5 % Neut % (Auto) 96.7 % Lymph % (Auto) 1.2 % Johnston % (Auto) 0.5 % Eos % (Auto) 0.0 % Baso % (Auto) 0.1 % Neut # (Auto) 10.54 H (1.40-6.50) K/uL Lymph # (Auto) 0.13 L (1.20-3.40) K/uL Johnston # (Auto) 0.05 L (0.11-0.59) K/uL Eos # (Auto) 0.00 (0.00-0.50) K/uL Baso # (Auto) 0.01 (0.00-0.20) K/uL Immature Gran # (Auto) 0.16 (0.01-0.20) K/uL Absolute Nucleated RBC 0.02 (0.00-0.12) K/uL Nucleated RBC % (auto) 0.2 % Toxic Vacuolation 1+ Target Cells PT (9.0-12.0) Seconds INR (0.9-1.1) APTT (21-31) Seconds PTT Ratio Fibrinogen (184-400) mg/dl Heparin Anti-Xa, Unfract > 1.50 H* (0.3-0.7) IU/ml Sodium 136 (136-145) mmol/L Potassium 3.9 (3.5-5.1) mmol/L Chloride 104 (98-107) mmol/L Carbon Dioxide 28 (21-32) mmol/L Anion Gap 4 (3-11) BUN 44 H (6-23) mg/dl Creatinine 1.13 (0.6-1.2) mg/dl Est Cr Clr Drug Dosing 46.1 ml/min eGFR 53.32 BUN/Creatinine Ratio 38.9 H (10-20) Glucose 119 H (70-99(Fasting)) mg/dl POC Glucose 134 H 97 (70-99) mg/dl Lactate (0.4-2.0) mmol/L Calcium 7.4 L (8.6-10.3) mg/dl Phosphorus (2.5-4.9) mg/dl Magnesium 1.8 (1.7-2.4) mg/dl Total Bilirubin 1.5 H (0.2-1.0) mg/dl Direct Bilirubin 0.9 H (0-0.2) mg/dl AST 160 H (13-39) U/L ALT 98 H (7-52) U/L Alkaline Phosphatase 386 H (34-104) U/L Troponin I High Sens 322.4 H* D (0-14) pg/ml B-Natriuretic Peptide (0-100) pg/ml Total Protein 4.4 L (6.0-8.3) gm/dl Albumin 2.1 L (3.4-5.0) gm/dl Globulin (2.5-4.0) gm/dl Albumin/Globulin Ratio (0.9-2) Lipase (11-82) U/L CA 125 Antigen Procalcitonin (0-0.5) ng/ml TSH (0.300-4.500) uIu/ml Free T4 (0.61-1.60) ng/dl Urine Color Urine Appearance (Clear) Urine pH (4.5-7.5) Ur Specific [place] (1.000-1.030) Urine Protein (Negative) Urine Glucose (UA) (Negative) Urine Ketones (Negative) Urine Blood (Negative) Urine Nitrite (Negative) Urine Bilirubin (Negative) Urine Urobilinogen (Negative) Ur Leukocyte Esterase (Negative) Urine WBC (Auto) (0-5) /hpf Urine RBC (Auto) (0-2) /hpf U Hyaline Cast (Auto) (0-2) /lpf U Epithel Cells (Auto) (0-2) /hpf Urine Bacteria (Auto) (None Seen) Adenovirus (PCR) (NotDetected) B. pertussis DNA (PCR) (NotDetected) B.parapertussis DNA PCR (NotDetected) C. pneumoniae DNA (PCR) (NotDetected) Coronavirus OC43 (PCR) (NotDetected) Coronavirus HKU1 (PCR) (NotDetected) Coronavirus 229E (PCR) (NotDetected) SARS-CoV-2 (PCR) (NotDetected) Coronavirus NL63 (PCR) (NotDetected) Human Metapneumovir PCR (NotDetected) Influenza Type A (PCR) (NotDetected) Influenza Type B (PCR) (NotDetected) M. pneumoniae (PCR) (NotDetected) Parainfluenza 1 (PCR) (NotDetected) Parainfluenza 2 (PCR) (NotDetected) Parainfluenza 3 (PCR) (NotDetected) Parainfluenza 4 (PCR) (NotDetected) RSV (PCR) (NotDetected) Entero/Rhino (PCR) (NotDetected) Blood Type Blood Type Recheck Antibody Screen Crossmatch 01/22/25 01/22/25 01/21/25 Range/Units 04:54 00:00 23:58 WBC (4.8-10.8) K/ul RBC (4.20-5.40) M/uL Hgb (12.0-16.0) g/dl Hct (37.0-47.0) % MCV (80.0-100.0) fL MCH (25.0-34.0) pg MCHC (32.0-36.0) g/dL RDW Std Deviation (36.4-46.3) fL RDW Coeff of Sol (11.5-14.5) % Plt Count (130-400) K/uL MPV (9.4-12.4) fL Immature Gran % (Auto) % Neut % (Auto) % Lymph % (Auto) % Johnston % (Auto) % Eos % (Auto) % Baso % (Auto) % Neut # (Auto) (1.40-6.50) K/uL Lymph # (Auto) (1.20-3.40) K/uL Johnston # (Auto) (0.11-0.59) K/uL Eos # (Auto) (0.00-0.50) K/uL Baso # (Auto) (0.00-0.20) K/uL Immature Gran # (Auto) (0.01-0.20) K/uL Absolute Nucleated RBC (0.00-0.12) K/uL Nucleated RBC % (auto) % Toxic Vacuolation Target Cells PT (9.0-12.0) Seconds INR (0.9-1.1) APTT (21-31) Seconds PTT Ratio Fibrinogen (184-400) mg/dl Heparin Anti-Xa, Unfract 0.35 (0.3-0.7) IU/ml Sodium (136-145) mmol/L Potassium (3.5-5.1) mmol/L Chloride (98-107) mmol/L Carbon Dioxide (21-32) mmol/L Anion Gap (3-11) BUN (6-23) mg/dl Creatinine (0.6-1.2) mg/dl Est Cr Clr Drug Dosing ml/min eGFR BUN/Creatinine Ratio (10-20) Glucose (70-99(Fasting)) mg/dl POC Glucose 119 H (70-99) mg/dl Lactate 1.3 (0.4-2.0) mmol/L Calcium (8.6-10.3) mg/dl Phosphorus (2.5-4.9) mg/dl Magnesium (1.7-2.4) mg/dl Total Bilirubin (0.2-1.0) mg/dl Direct Bilirubin (0-0.2) mg/dl AST (13-39) U/L ALT (7-52) U/L Alkaline Phosphatase (34-104) U/L Troponin I High Sens (0-14) pg/ml B-Natriuretic Peptide (0-100) pg/ml Total Protein (6.0-8.3) gm/dl Albumin (3.4-5.0) gm/dl Globulin (2.5-4.0) gm/dl Albumin/Globulin Ratio (0.9-2) Lipase (11-82) U/L CA 125 Antigen Procalcitonin (0-0.5) ng/ml TSH (0.300-4.500) uIu/ml Free T4 (0.61-1.60) ng/dl Urine Color Urine Appearance (Clear) Urine pH (4.5-7.5) Ur Specific [place] (1.000-1.030) Urine Protein (Negative) Urine Glucose (UA) (Negative) Urine Ketones (Negative) Urine Blood (Negative) Urine Nitrite (Negative) Urine Bilirubin (Negative) Urine Urobilinogen (Negative) Ur Leukocyte Esterase (Negative) Urine WBC (Auto) (0-5) /hpf Urine RBC (Auto) (0-2) /hpf U Hyaline Cast (Auto) (0-2) /lpf U Epithel Cells (Auto) (0-2) /hpf Urine Bacteria (Auto) (None Seen) Adenovirus (PCR) (NotDetected) B. pertussis DNA (PCR) (NotDetected) B.parapertussis DNA PCR (NotDetected) C. pneumoniae DNA (PCR) (NotDetected) Coronavirus OC43 (PCR) (NotDetected) Coronavirus HKU1 (PCR) (NotDetected) Coronavirus 229E (PCR) (NotDetected) SARS-CoV-2 (PCR) (NotDetected) Coronavirus NL63 (PCR) (NotDetected) Human Metapneumovir PCR (NotDetected) Influenza Type A (PCR) (NotDetected) Influenza Type B (PCR) (NotDetected) M. pneumoniae (PCR) (NotDetected) Parainfluenza 1 (PCR) (NotDetected) Parainfluenza 2 (PCR) (NotDetected) Parainfluenza 3 (PCR) (NotDetected) Parainfluenza 4 (PCR) (NotDetected) RSV (PCR) (NotDetected) Entero/Rhino (PCR) (NotDetected) Blood Type Blood Type Recheck Antibody Screen Crossmatch 01/21/25 01/21/25 01/21/25 Range/Units 21:40 20:54 20:19 WBC (4.8-10.8) K/ul RBC (4.20-5.40) M/uL Hgb (12.0-16.0) g/dl Hct (37.0-47.0) % MCV (80.0-100.0) fL MCH (25.0-34.0) pg MCHC (32.0-36.0) g/dL RDW Std Deviation (36.4-46.3) fL RDW Coeff of Sol (11.5-14.5) % Plt Count (130-400) K/uL MPV (9.4-12.4) fL Immature Gran % (Auto) % Neut % (Auto) % Lymph % (Auto) % Johnston % (Auto) % Eos % (Auto) % Baso % (Auto) % Neut # (Auto) (1.40-6.50) K/uL Lymph # (Auto) (1.20-3.40) K/uL Johnston # (Auto) (0.11-0.59) K/uL Eos # (Auto) (0.00-0.50) K/uL Baso # (Auto) (0.00-0.20) K/uL Immature Gran # (Auto) (0.01-0.20) K/uL Absolute Nucleated RBC (0.00-0.12) K/uL Nucleated RBC % (auto) % Toxic Vacuolation Target Cells PT (9.0-12.0) Seconds INR (0.9-1.1) APTT (21-31) Seconds PTT Ratio Fibrinogen (184-400) mg/dl Heparin Anti-Xa, Unfract (0.3-0.7) IU/ml Sodium (136-145) mmol/L Potassium (3.5-5.1) mmol/L Chloride (98-107) mmol/L Carbon Dioxide (21-32) mmol/L Anion Gap (3-11) BUN (6-23) mg/dl Creatinine (0.6-1.2) mg/dl Est Cr Clr Drug Dosing ml/min eGFR BUN/Creatinine Ratio (10-20) Glucose (70-99(Fasting)) mg/dl POC Glucose 175 H (70-99) mg/dl Lactate 2.1 H* (0.4-2.0) mmol/L Calcium (8.6-10.3) mg/dl Phosphorus (2.5-4.9) mg/dl Magnesium (1.7-2.4) mg/dl Total Bilirubin (0.2-1.0) mg/dl Direct Bilirubin (0-0.2) mg/dl AST (13-39) U/L ALT (7-52) U/L Alkaline Phosphatase (34-104) U/L Troponin I High Sens (0-14) pg/ml B-Natriuretic Peptide (0-100) pg/ml Total Protein (6.0-8.3) gm/dl Albumin (3.4-5.0) gm/dl Globulin (2.5-4.0) gm/dl Albumin/Globulin Ratio (0.9-2) Lipase (11-82) U/L CA 125 Antigen Procalcitonin (0-0.5) ng/ml TSH (0.300-4.500) uIu/ml Free T4 (0.61-1.60) ng/dl Urine Color Yellow Urine Appearance Clear (Clear) Urine pH 5.0 (4.5-7.5) Ur Specific [place] 1.025 (1.000-1.030) Urine Protein Negative (Negative) Urine Glucose (UA) Negative (Negative) Urine Ketones Negative (Negative) Urine Blood Trace H (Negative) Urine Nitrite Negative (Negative) Urine Bilirubin Negative (Negative) Urine Urobilinogen Negative (Negative) Ur Leukocyte Esterase Negative (Negative) Urine WBC (Auto) 0-5 (0-5) /hpf Urine RBC (Auto) 3-5 H (0-2) /hpf U Hyaline Cast (Auto) 0-2 (0-2) /lpf U Epithel Cells (Auto) 3-5 H (0-2) /hpf Urine Bacteria (Auto) None Seen (None Seen) Adenovirus (PCR) (NotDetected) B. pertussis DNA (PCR) (NotDetected) B.parapertussis DNA PCR (NotDetected) C. pneumoniae DNA (PCR) (NotDetected) Coronavirus OC43 (PCR) (NotDetected) Coronavirus HKU1 (PCR) (NotDetected) Coronavirus 229E (PCR) (NotDetected) SARS-CoV-2 (PCR) (NotDetected) Coronavirus NL63 (PCR) (NotDetected) Human Metapneumovir PCR (NotDetected) Influenza Type A (PCR) (NotDetected) Influenza Type B (PCR) (NotDetected) M. pneumoniae (PCR) (NotDetected) Parainfluenza 1 (PCR) (NotDetected) Parainfluenza 2 (PCR) (NotDetected) Parainfluenza 3 (PCR) (NotDetected) Parainfluenza 4 (PCR) (NotDetected) RSV (PCR) (NotDetected) Entero/Rhino (PCR) (NotDetected) Blood Type Blood Type Recheck Antibody Screen Crossmatch 01/21/25 01/21/25 01/21/25 Range/Units 19:11 19:00 18:45 WBC (4.8-10.8) K/ul RBC (4.20-5.40) M/uL Hgb (12.0-16.0) g/dl Hct (37.0-47.0) % MCV (80.0-100.0) fL MCH (25.0-34.0) pg MCHC (32.0-36.0) g/dL RDW Std Deviation (36.4-46.3) fL RDW Coeff of Sol (11.5-14.5) % Plt Count (130-400) K/uL MPV (9.4-12.4) fL Immature Gran % (Auto) % Neut % (Auto) % Lymph % (Auto) % Johnston % (Auto) % Eos % (Auto) % Baso % (Auto) % Neut # (Auto) (1.40-6.50) K/uL Lymph # (Auto) (1.20-3.40) K/uL Johnston # (Auto) (0.11-0.59) K/uL Eos # (Auto) (0.00-0.50) K/uL Baso # (Auto) (0.00-0.20) K/uL Immature Gran # (Auto) (0.01-0.20) K/uL Absolute Nucleated RBC (0.00-0.12) K/uL Nucleated RBC % (auto) % Toxic Vacuolation Target Cells PT (9.0-12.0) Seconds INR (0.9-1.1) APTT (21-31) Seconds PTT Ratio Fibrinogen (184-400) mg/dl Heparin Anti-Xa, Unfract (0.3-0.7) IU/ml Sodium (136-145) mmol/L Potassium (3.5-5.1) mmol/L Chloride (98-107) mmol/L Carbon Dioxide (21-32) mmol/L Anion Gap (3-11) BUN (6-23) mg/dl Creatinine (0.6-1.2) mg/dl Est Cr Clr Drug Dosing ml/min eGFR BUN/Creatinine Ratio (10-20) Glucose (70-99(Fasting)) mg/dl POC Glucose 86 66 L* (70-99) mg/dl Lactate (0.4-2.0) mmol/L Calcium (8.6-10.3) mg/dl Phosphorus (2.5-4.9) mg/dl Magnesium (1.7-2.4) mg/dl Total Bilirubin (0.2-1.0) mg/dl Direct Bilirubin (0-0.2) mg/dl AST (13-39) U/L ALT (7-52) U/L Alkaline Phosphatase (34-104) U/L Troponin I High Sens 229.6 H* D (0-14) pg/ml B-Natriuretic Peptide (0-100) pg/ml Total Protein (6.0-8.3) gm/dl Albumin (3.4-5.0) gm/dl Globulin (2.5-4.0) gm/dl Albumin/Globulin Ratio (0.9-2) Lipase (11-82) U/L CA 125 Antigen Procalcitonin (0-0.5) ng/ml TSH (0.300-4.500) uIu/ml Free T4 (0.61-1.60) ng/dl Urine Color Urine Appearance (Clear) Urine pH (4.5-7.5) Ur Specific [place] (1.000-1.030) Urine Protein (Negative) Urine Glucose (UA) (Negative) Urine Ketones (Negative) Urine Blood (Negative) Urine Nitrite (Negative) Urine Bilirubin (Negative) Urine Urobilinogen (Negative) Ur Leukocyte Esterase (Negative) Urine WBC (Auto) (0-5) /hpf Urine RBC (Auto) (0-2) /hpf U Hyaline Cast (Auto) (0-2) /lpf U Epithel Cells (Auto) (0-2) /hpf Urine Bacteria (Auto) (None Seen) Adenovirus (PCR) (NotDetected) B. pertussis DNA (PCR) (NotDetected) B.parapertussis DNA PCR (NotDetected) C. pneumoniae DNA (PCR) (NotDetected) Coronavirus OC43 (PCR) (NotDetected) Coronavirus HKU1 (PCR) (NotDetected) Coronavirus 229E (PCR) (NotDetected) SARS-CoV-2 (PCR) (NotDetected) Coronavirus NL63 (PCR) (NotDetected) Human Metapneumovir PCR (NotDetected) Influenza Type A (PCR) (NotDetected) Influenza Type B (PCR) (NotDetected) M. pneumoniae (PCR) (NotDetected) Parainfluenza 1 (PCR) (NotDetected) Parainfluenza 2 (PCR) (NotDetected) Parainfluenza 3 (PCR) (NotDetected) Parainfluenza 4 (PCR) (NotDetected) RSV (PCR) (NotDetected) Entero/Rhino (PCR) (NotDetected) Blood Type Blood Type Recheck Antibody Screen Crossmatch 01/21/25 01/21/25 01/21/25 Range/Units 18:44 18:16 15:00 WBC 11.17 H (4.8-10.8) K/ul RBC 4.48 (4.20-5.40) M/uL Hgb 12.3 (12.0-16.0) g/dl Hct 38.7 (37.0-47.0) % MCV 86.4 (80.0-100.0) fL MCH 27.5 (25.0-34.0) pg MCHC 31.8 L (32.0-36.0) g/dL RDW Std Deviation 54.9 H (36.4-46.3) fL RDW Coeff of Sol 17.4 H (11.5-14.5) % Plt Count 310 (130-400) K/uL MPV 10.0 (9.4-12.4) fL Immature Gran % (Auto) 0.4 % Neut % (Auto) 94.8 % Lymph % (Auto) 3.9 % Johnston % (Auto) 0.7 % Eos % (Auto) 0.2 % Baso % (Auto) 0.0 % Neut # (Auto) 10.58 H (1.40-6.50) K/uL Lymph # (Auto) 0.44 L (1.20-3.40) K/uL Johnston # (Auto) 0.08 L (0.11-0.59) K/uL Eos # (Auto) 0.02 (0.00-0.50) K/uL Baso # (Auto) 0.00 (0.00-0.20) K/uL Immature Gran # (Auto) 0.05 (0.01-0.20) K/uL Absolute Nucleated RBC 0.02 (0.00-0.12) K/uL Nucleated RBC % (auto) 0.2 % Toxic Vacuolation 1+ Target Cells 1+ PT 14.6 H (9.0-12.0) Seconds INR 1.4 H (0.9-1.1) APTT 31 (21-31) Seconds PTT Ratio 1.2 Fibrinogen (184-400) mg/dl Heparin Anti-Xa, Unfract (0.3-0.7) IU/ml Sodium 137 (136-145) mmol/L Potassium 3.8 (3.5-5.1) mmol/L Chloride 102 (98-107) mmol/L Carbon Dioxide 34 H (21-32) mmol/L Anion Gap 1 L (3-11) BUN 49 H (6-23) mg/dl Creatinine 1.07 (0.6-1.2) mg/dl Est Cr Clr Drug Dosing 47.5 ml/min eGFR 56.93 BUN/Creatinine Ratio 45.8 H (10-20) Glucose 87 (70-99(Fasting)) mg/dl POC Glucose 65 L* 61 L* (70-99) mg/dl Lactate (0.4-2.0) mmol/L Calcium 8.3 L (8.6-10.3) mg/dl Phosphorus 3.1 (2.5-4.9) mg/dl Magnesium 2.1 (1.7-2.4) mg/dl Total Bilirubin 1.0 (0.2-1.0) mg/dl Direct Bilirubin (0-0.2) mg/dl AST 245 H (13-39) U/L ALT 145 H (7-52) U/L Alkaline Phosphatase 339 H (34-104) U/L Troponin I High Sens 174.8 H* (0-14) pg/ml B-Natriuretic Peptide 243 H (0-100) pg/ml Total Protein 5.3 L (6.0-8.3) gm/dl Albumin 2.6 L (3.4-5.0) gm/dl Globulin 2.7 (2.5-4.0) gm/dl Albumin/Globulin Ratio 1.0 (0.9-2) Lipase 11 (11-82) U/L CA 125 Antigen Procalcitonin 0.61 H (0-0.5) ng/ml TSH 4.667 H (0.300-4.500) uIu/ml Free T4 1.05 (0.61-1.60) ng/dl Urine Color Urine Appearance (Clear) Urine pH (4.5-7.5) Ur Specific [place] (1.000-1.030) Urine Protein (Negative) Urine Glucose (UA) (Negative) Urine Ketones (Negative) Urine Blood (Negative) Urine Nitrite (Negative) Urine Bilirubin (Negative) Urine Urobilinogen (Negative) Ur Leukocyte Esterase (Negative) Urine WBC (Auto) (0-5) /hpf Urine RBC (Auto) (0-2) /hpf U Hyaline Cast (Auto) (0-2) /lpf U Epithel Cells (Auto) (0-2) /hpf Urine Bacteria (Auto) (None Seen) Adenovirus (PCR) (NotDetected) B. pertussis DNA (PCR) (NotDetected) B.parapertussis DNA PCR (NotDetected) C. pneumoniae DNA (PCR) (NotDetected) Coronavirus OC43 (PCR) (NotDetected) Coronavirus HKU1 (PCR) (NotDetected) Coronavirus 229E (PCR) (NotDetected) SARS-CoV-2 (PCR) (NotDetected) Coronavirus NL63 (PCR) (NotDetected) Human Metapneumovir PCR (NotDetected) Influenza Type A (PCR) (NotDetected) Influenza Type B (PCR) (NotDetected) M. pneumoniae (PCR) (NotDetected) Parainfluenza 1 (PCR) (NotDetected) Parainfluenza 2 (PCR) (NotDetected) Parainfluenza 3 (PCR) (NotDetected) Parainfluenza 4 (PCR) (NotDetected) RSV (PCR) (NotDetected) Entero/Rhino (PCR) (NotDetected) Blood Type Blood Type Recheck Antibody Screen Crossmatch 01/21/25 Range/Units 14:00 WBC (4.8-10.8) K/ul RBC (4.20-5.40) M/uL Hgb (12.0-16.0) g/dl Hct (37.0-47.0) % MCV (80.0-100.0) fL MCH (25.0-34.0) pg MCHC (32.0-36.0) g/dL RDW Std Deviation (36.4-46.3) fL RDW Coeff of Sol (11.5-14.5) % Plt Count (130-400) K/uL MPV (9.4-12.4) fL Immature Gran % (Auto) % Neut % (Auto) % Lymph % (Auto) % Johnston % (Auto) % Eos % (Auto) % Baso % (Auto) % Neut # (Auto) (1.40-6.50) K/uL Lymph # (Auto) (1.20-3.40) K/uL Johnston # (Auto) (0.11-0.59) K/uL Eos # (Auto) (0.00-0.50) K/uL Baso # (Auto) (0.00-0.20) K/uL Immature Gran # (Auto) (0.01-0.20) K/uL Absolute Nucleated RBC (0.00-0.12) K/uL Nucleated RBC % (auto) % Toxic Vacuolation Target Cells PT (9.0-12.0) Seconds INR (0.9-1.1) APTT (21-31) Seconds PTT Ratio Fibrinogen (184-400) mg/dl Heparin Anti-Xa, Unfract (0.3-0.7) IU/ml Sodium (136-145) mmol/L Potassium (3.5-5.1) mmol/L Chloride (98-107) mmol/L Carbon Dioxide (21-32) mmol/L Anion Gap (3-11) BUN (6-23) mg/dl Creatinine (0.6-1.2) mg/dl Est Cr Clr Drug Dosing ml/min eGFR BUN/Creatinine Ratio (10-20) Glucose (70-99(Fasting)) mg/dl POC Glucose (70-99) mg/dl Lactate (0.4-2.0) mmol/L Calcium (8.6-10.3) mg/dl Phosphorus (2.5-4.9) mg/dl Magnesium (1.7-2.4) mg/dl Total Bilirubin (0.2-1.0) mg/dl Direct Bilirubin (0-0.2) mg/dl AST (13-39) U/L ALT (7-52) U/L Alkaline Phosphatase (34-104) U/L Troponin I High Sens (0-14) pg/ml B-Natriuretic Peptide (0-100) pg/ml Total Protein (6.0-8.3) gm/dl Albumin (3.4-5.0) gm/dl Globulin (2.5-4.0) gm/dl Albumin/Globulin Ratio (0.9-2) Lipase (11-82) U/L CA 125 Antigen Procalcitonin (0-0.5) ng/ml TSH (0.300-4.500) uIu/ml Free T4 (0.61-1.60) ng/dl Urine Color Urine Appearance (Clear) Urine pH (4.5-7.5) Ur Specific [place] (1.000-1.030) Urine Protein (Negative) Urine Glucose (UA) (Negative) Urine Ketones (Negative) Urine Blood (Negative) Urine Nitrite (Negative) Urine Bilirubin (Negative) Urine Urobilinogen (Negative) Ur Leukocyte Esterase (Negative) Urine WBC (Auto) (0-5) /hpf Urine RBC (Auto) (0-2) /hpf U Hyaline Cast (Auto) (0-2) /lpf U Epithel Cells (Auto) (0-2) /hpf Urine Bacteria (Auto) (None Seen) Adenovirus (PCR) Not Detected (NotDetected) B. pertussis DNA (PCR) Not Detected (NotDetected) B.parapertussis DNA PCR Not Detected (NotDetected) C. pneumoniae DNA (PCR) Not Detected (NotDetected) Coronavirus OC43 (PCR) Not Detected (NotDetected) Coronavirus HKU1 (PCR) Not Detected (NotDetected) Coronavirus 229E (PCR) Not Detected (NotDetected) SARS-CoV-2 (PCR) Not Detected (NotDetected) Coronavirus NL63 (PCR) Not Detected (NotDetected) Human Metapneumovir PCR Not Detected (NotDetected) Influenza Type A (PCR) Not Detected (NotDetected) Influenza Type B (PCR) Not Detected (NotDetected) M. pneumoniae (PCR) Not Detected (NotDetected) Parainfluenza 1 (PCR) Not Detected (NotDetected) Parainfluenza 2 (PCR) Not Detected (NotDetected) Parainfluenza 3 (PCR) Not Detected (NotDetected) Parainfluenza 4 (PCR) Not Detected (NotDetected) RSV (PCR) Not Detected (NotDetected) Entero/Rhino (PCR) Not Detected (NotDetected) Blood Type Blood Type Recheck Antibody Screen Crossmatch Diagnostic Findings Chest X-Ray 01/21/25 13:20 XR chest 1V portable CLINICAL HISTORY: Chest pain, nonspecific COMPARISON STUDY: 01/02/2025 FINDINGS: Heart size and pulmonary vasculature are normal. There are small bilateral pleural effusions and associated lung base consolidation, improved on the left and stable on the right. No pneumothorax. IMPRESSION: Bilateral pleural effusions, improved on the left and stable on the right. ACT 112: Negative or not required by law. Electronically signed by: Oneil Kirby M.D. 01/21/2025 1:37 PM Aorta w/Runoff CTA 01/21/25 16:18 EXAM: CT ang AA runof w frank khoury CLINICAL HISTORY: OvCA perit carcinomatosis, Absent R pedal pulses. TECHNIQUE: CT Angiography of abdominal aorta, bilateral iliac and femoropopliteal arterial trees with IV contrast administration. 119ml Optiray 320 One of these 3D techniques was utilized: Maximum Intensity Pixel (MIP), 3D Reconstructed Images, Volume Rendered Images, Surface Shaded Rendering. One of the following dose reduction techniques was utilized for this exam: Automated exposure control, adjustment of the mA and/or kV according to patient size, and use of iterative reconstruction. COMPARISON: Comoared to prior CT 01/02/2025 FINDINGS: Diffuse increase in intimal medial thickness of all examined arteries with no significant stenosis except at the right common iliac artery reaching 75 %. Aorta: The abdominal aorta is normal in caliber. No evidence of aneurysm, dissection, or significant atherosclerotic changes. Aortic bifurcation is unremarkable. Renal Arteries: Renal arteries are normal in size and opacification. No evidence of stenosis or occlusion. Symmetric perfusion of both kidneys. Mesenteric Arteries: Superior mesenteric artery (SMA) and inferior mesenteric artery (RAJNI) are normal in caliber and opacification. No evidence of stenosis or occlusion. Celiac Artery: Celiac artery is normal in caliber and opacification. No evidence of stenosis or occlusion. Iliac Arteries: Common, internal, and external iliac arteries are normal in caliber and opacification. No evidence of stenosis, aneurysm, or occlusion. 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 Femoral Arteries: Common femoral arteries are normal in caliber and opacification. No evidence of stenosis or occlusion. Superficial and deep femoral arteries are normal in appearance. Popliteal Arteries: Popliteal arteries are normal in caliber and opacification. No evidence of stenosis or occlusion. Tibial Arteries: Anterior tibial, posterior tibial, and peroneal arteries are normal in caliber and opacification. No evidence of stenosis or occlusion. Venous Structures: Inferior vena cava (IVC) and major venous structures are normal in caliber and opacification. No evidence of thrombus or obstruction. Liver: Normal size and morphology. Homogeneous enhancement post-contrast. No focal hepatic lesions. Gallbladder and Biliary System: Chlecywtetcomy clips. Dilated intrahepatic and extrahepatic biliary channels. reach CBD 12 mm. Pancreas: Normal size and contour. Homogeneous enhancement post-contrast. No masses or cystic lesions. Spleen: Normal size and appearance. Homogeneous enhancement post-contrast. Adrenal Glands: Normal size and morphology bilaterally. No adrenal masses. Kidneys and Ureters: Normal size, shape, and position of both kidneys. Homogeneous enhancement post-contrast. No renal stones, masses, or hydronephrosis. Ureters are unremarkable. Bladder: Normal in size and wall thickness. No intraluminal masses. Bilateral complex adenxal cystic masses. Normal enhancement post-contrast. Bowel: Normal appearance of the visualized bowel loops. No evidence of obstruction, wall thickening, or abnormal dilatation. Lymph Nodes: No pathologically enlarged lymph nodes in the abdomen or pelvis. Peritoneum: Marked amount of free fluid in abdomen and pelvis with multiple nodules and enhancing omental deposits, largest anterior to the spleen measuring about 10x5.5 cm. Bones: No lytic or sclerotic lesions. Normal alignment and bone density. Soft Tissues: Normal appearance of the visualized soft tissues. IMPRESSION: 1. 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 2. 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 with marked ascites, and enhancing omental deposits, largest anterior to the spleen measuring about 10x5.5 cm., suggest clinical assessment, and tumor markers (unchanged) 3. Dilated intrahepatic and extrahepatic biliary channels. reach CBD 12 mm. Suggest MRCP and clinical assessment (new) Electronically signed by Nohemy Leahy 01-21-2025 8:08 PM Chest CTA 01/21/25 16:18 EXAM: CT angio chest PE protocol CLINICAL HISTORY: SOB, OvCA peritoneal carcinomatosis, r/o PE TECHNIQUE: CT angiography of the chest was performed with the administration of intravenous contrast with the following protocol: axial images with, reconstructed coronal and sagittal images. The contrast-enhanced images were acquired in arterial and venous phases. Intravenous contrast was administered using automated injection techniques. Bolus tracking was employed to optimize arterial phase imaging. One of these 3D techniques was utilized: Maximum Intensity Pixel (MIP), 3D Reconstructed Images, Volume Rendered Images, Surface Shaded Rendering. One of the following dose reduction techniques was utilized for this exam: Automated exposure control, adjustment of the mA and/or kV according to patient size, and use of iterative reconstruction. (CTDI: 23.75 mGy, DLP: 2661.55 mGy*cm) COMPARISON: Comparison is made with 01/02/2025. FINDINGS: Aorta and Great Vessels: Ascending Aorta: Normal in caliber, no aneurysm, dissection, or significant atherosclerosis. Aortic Arch: Normal in caliber, no aneurysm, dissection, or significant atherosclerosis. Descending Aorta: Normal in caliber, no aneurysm, dissection, or significant atherosclerosis. Pulmonary Arteries: The main pulmonary artery and its branches are patent. No evidence of pulmonary embolism or significant stenosis. Heart: Cardiac Chambers: increase cardiac size. Pericardium: No pericardial effusion or thickening. Lungs and Pleura: Bilateral basal consolidations Bilateral moderate pleural effusion with passive atelectasis. Slight compressed lower trachea and bronchi with patent lumen. Mediastinum: No mediastinal mass or abnormal lymphadenopathy. Normal appearance of the trachea and central bronchi. Hilar Structures: Hilar structures are normal without enlargement. Chest Wall: No mass lesions or abnormalities in the chest wall. Vascular Structures: Superior Vena Cava: Patent without evidence of stenosis or thrombus. Inferior Vena Cava: Patent without evidence of stenosis or thrombus. Bones and Soft Tissues: No fractures, lytic, or blastic lesions of the visualized bony structures. Thoracic spondylosis. Soft tissues are unremarkable. IMPRESSION: 1. No pulmonary embolism at the time of the scan. (unchanged) 2. Bilateral moderate pleural effusion with compression collapse of both posterior segments of both lower lobes. (unchanged) 3. Slight compressed lower trachea and bronchi with patent lumen. (unchanged) suggests clinical assessment. 4. Cardiomegaly. (unchanged) Electronically signed by Nohemy Leahy 01-21-2025 7:47 PM Duplex Scan Lower Extremity Artery 01/21/25 18:09 Exam(s): US ARTERIAL RIGHT LOWER EXTREMITY EXAM: US Duplex Right Lower Extremity Arteries CLINICAL HISTORY: Absent right pedal pulses. TECHNIQUE: Real-time duplex ultrasound scan of the right lower extremity arteries integrating B-mode two-dimensional vascular structure, Doppler spectral analysis and color flow Doppler imaging. COMPARISON: No relevant prior studies available. 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 There is multiphasic wave forms of the peak systolic velocity of 72 cm/s. Right superficial femoral artery: The superficial femoral artery is patent with atherosclerotic disease and multiphasic waveforms, with the peak systolic velocities measuring 104 cm/s proximally, 107 cm at the mid segment and 77 cm/s distally. Right popliteal artery: The right popliteal artery demonstrates monophasic waveforms with a peak systolic velocity of between 30-40 cm/s. Right calf/foot arteries: The right posterior tibial artery is not well delineated. No arterial flow noted in this region. The peroneal artery is not clearly delineated. The proximal right anterior tibial artery is patent with monophasic waveforms and peak systolic velocity of 24 cm/s. The mid to distal anterior tibial artery are not clearly delineated and may be occluded. The dorsalis pedis artery is not definitively delineated sonographically. Other arteries: The proximal right profunda femoral artery is patent with biphasic waveforms in the peak systolic velocity of 64 cm/s. Soft tissues: Subcutaneous edema noted at the calf. IMPRESSION: 1. The proximal right anterior tibial artery is patent with monophasic waveforms and peak systolic velocity of 24 cm/s. The mid to distal anterior tibial artery are not clearly delineated and may be occluded. The peroneal and posterior tibial arteries are not identified. The dorsalis pedis artery is not clearly delineated and may be occluded. Recommend further evaluation with CTA or conventional angiography, as clinically indicated. 2. Atherosclerotic disease from the common femoral through the superficial femoral arteries. No elevated velocities to suggest a focal hemodynamic stenosis. The popliteal artery demonstrates monophasic waveforms, but is patent. Electronically signed by: Pato Aldana MD 01/21/25 21:20 PM Venous Doppler Study 01/21/25 18:09 Exam(s): US VENOUS BILATERAL LOWER EXTREMITIES EXAM: US Duplex Bilateral Lower Extremities Veins CLINICAL HISTORY: BLE edema. TECHNIQUE: Real-time duplex ultrasound scan of the bilateral lower extremity veins integrating B-mode two-dimensional vascular structure, Doppler spectral analysis, color flow Doppler imaging and compression. COMPARISON: No relevant prior studies available. FINDINGS: Limitations: Evaluation is reportedly limited by underlying edema. Right deep veins: Unremarkable. No DVT in the right common femoral, femoral, proximal deep femoral or popliteal veins. The veins demonstrate normal color flow, are normally compressible, with normal phasic flow and/or augmentation response. The interrogated calf veins are patent. Right superficial veins: Unremarkable. No thrombus in the saphenofemoral junction. Left deep veins: Unremarkable. No DVT in the left common femoral, femoral, proximal deep femoral or popliteal veins. The veins demonstrate normal color flow, are normally compressible, with normal phasic flow and/or augmentation response. The interrogated calf veins are patent. Left superficial veins: Unremarkable. No thrombus in the saphenofemoral junction. Soft tissues: Diffuse subcutaneous fat stranding noted, most prominent from the knees distally. No loculated fluid collection. No popliteal cyst. IMPRESSION: 1. No evidence for deep vein thrombosis involving the bilateral lower extremities. 2. Bilateral subcutaneous edema. Electronically signed by: Pato Aldana MD 01/21/25 21:16 PM PG Care Time/CCT Total # of Minutes Spent Total Time Spent with Patient: Total time spent is greater than 50% in coordination of care (as documented) at patient's floor/unit and/or counseling patient: I spent 105 minutes overall addressing this case: 20 min in medical data review/discussion with referring provider(s) and/or preparation for the visit 15 min in direct interaction with the patient/exam 45 min in Advance Care Planning/Goals of Care discussions as detailed above in note (must be >16min) 10 min in subsequent review and synthesis of assessment and plan 15 min communicating with other providers regarding the patient's case: Primary team, nursing, care management, oncology, critical care medicine Advanced Care Planning 70075 Advanced Care Planning 30 Min 95588 Advanced Care Planning Additional 30 [place] [address] IN/OBS CONSULT LVL 4,60M (25 - SIGNIFICANT, SEPARATELY IDENTIFIABLE ) Patient Type New Diagnoses Dyspnea and respiratory abnormalities R06.00; R06.89 Cough R05.9 Cancer related pain G89.3 Acute pain of right lower extremity M79.604 Advanced care planning/counseling discussion Z71.89 Palliative care by specialist Z51.5 Additional Codes Advanced Care Planning - 23563 Advanced Care Planning 30 Min: 80474 Advanced Care Planning 30 Min ([id number]) Advanced Care Planning - 97296 Advanced Care Planning Additional 30 Min: 02188 Advanced Care Planning Additional 30 Min ([id number]) Time Spent (min) 105 Comment [id number], [id number]
[2025-01-23] MEDS: MoRPHine SULFATE 2 MG/ML CARP IV PRN (14:07)
--- NOTE | 2025-01-23 14:55 | Procedure Note ---
Procedure Note Date of Service January 23, 2025 Procedure: Ultrasound guided left Pleurx catheter placement. Indication: Recurrent malignant effusion Consent: Signed by patient and verified with timeout prior to procedure. Anesthesia: 15 mL's 1% lidocaine without epinephrine locally. Cold Storage Worker: Dr. Marcello Manriquez Procedure: The patient was brought to the sedation unit. Standard monitoring was applied. Appropriate radiographic films had been reviewed prior to commencement of the procedure. Risks and benefits were again discussed with patient consent was verified. The patient was placed in the left side up lateral decubitus position. Limited thoracic ultrasound was performed which revealed a left-sided effusion with compressive atelectasis. Site appropriate for the pleurotomy was marked. Skin was prepped and draped in normal sterile fashion. Using 1% lidocaine, the skin and soft tissues down to the pleura were anesthetized. A tract extending approximately 8 to 10 cm anteriorly from the pleurotomy site was also infiltrated and a site appropriate for the exit of the Pleurx catheter was marke d. A 1 cm skin segun was made at the posterior site. The catheter over the needle apparatus was advanced into the pleural space with pleural fluid easily aspirated. A wire was passed through the catheter after the needle was removed. The Pleurx catheter was then loaded on the tunneling device. A 1cm skin incision was made at the anterior catheter exit site. The tunneling device with the attached Pleurx catheter were passed from the anterior incision back to the posterior incision until the cuff of the Pleurx catheter resided within the subcutaneous tissues. The catheter was palpated along its course and no kinking was identified. Serial dilatation was then performed over the wire with the pull-away catheter being left in place. The Pleurx was removed from the tunneling mechanism and advanced through the peel-away catheter. The catheter sheath was then peeled back as the Pleurx catheter was advanced into the pleural space. The Pleurx catheter course was palpated and no kinks were felt. It was attached to wall suction and a total of 400 mL's of bloody fluid was removed. Using 1-0 silk, 2 stitches were placed at the exit Pleurx site and the catheter secured in place. 2 small Vicryl sutures were used to close the posterior incision. A sterile dressing was applied. The patient tolerated the procedure well without obvious complication. Post procedure x-ray is pending. Estimated blood loss: Less than 10 mL's [facility] [place] Procedure Codes (Charges) Pulmonary/Thoracic Procedure 1: Pulmonary and Thoracic: 32439 Insert pleural cathereter w/cuff Procedure 2: Pulmonary and Thoracic: 99335 US, Chest, real time with imaging docume ntation Coding CPT Codes Pulmonary/Thoracic - Pulmonary and Thoracic: 11235 Insert pleural cathereter w/cuff ([id number]) Pulmonary/Thoracic - Pulmonary and Thoracic: 54808 US, Chest, real time with imaging documentation ([id number]) Additional Codes Date of Service (PG.SURGERY)
[2025-01-23] MEDS: ACETAMINOPHEN 325 MG TAB PO PRN (14:59)
[2025-01-23] MEDS: LIDOCAINE 1% LOCAL 20 ML VIAL INJ ONE (14:59)
--- NOTE | 2025-01-23 15:26 | XRay Report ---
XR chest 1V portable CLINICAL HISTORY: Post Pleurx placement COMPARISON STUDY: 01/21/2025 FINDINGS: There is stable mild cardiomegaly without pulmonary vascular congestion. There is an interv al right pleural catheter at the right base. There is interval resolution of the prior right lung bas e opacity. No pneumothorax. There is stable hazy opacity at the left base consistent with consolidati on and pleural effusion. IMPRESSION: No pneumothorax. ACT 112: Negative or not required by law. Electronically signed by: Oneil Kirby M.D. 01/23/2025 3:24 PM
[2025-01-23] MEDS: guaiFENesin/DEXTROM SYRUP 200MG/20MG 10ML UDC PO PRN (16:33)
--- NOTE | 2025-01-23 19:20 | Electrocardiogram Report ---
Test Reason : Blood Pressure : */* mmHG Vent. Rate : 101 BPM Atrial Rate : 101 BPM P-R Int : 170 ms QRS Dur : 94 ms QT Int : 362 ms P-R-T Axes : 35 -14 75 degrees QTcB Int : 469 ms Sinus tachycardia Minimal voltage criteria for LVH, may be normal variant ( [employer] product ) Septal infarct , age undetermined Abnormal ECG When compared with ECG of 01-Jan-2025 14:09, Septal infarct is now Present Non-specific change in ST segment in Anterolateral leads T wave inversion no longer evident in Inferior leads T wave inversion no longer evident in Anterolateral leads Confirmed by Floyd Clarke ([id number]) on 01/23/2025 7:20:30 PM Referred By: MARILOU DAVALOS Confirmed By: Floyd Clarke
[2025-01-23] MEDS: BENZONATATE 100 MG CAPSULE PO PRN (20:53)
[2025-01-24 01:50] LABS: ANTI-Xa, UFH(UnfractionatedHep 0.23 IU/ml (0.3-0.7)
[2025-01-24] MEDS: CHLORASEPTIC (PHENOL) 1.4% SOLN 180 ML BTL MT PRN (03:01)
[2025-01-24 05:24] LABS: Albumin Globulin Ratio 0.8 (0.9-2); Albumin Level 1.9 gm/dl (3.4-5.0); BUN Creatinine Ratio 36.6 (10-20); Bilirubin,Total 1.9 mg/dl (0.2-1.0); Creatinine Clr Calc Pharmacy 37.9 ml/min; Globulin 2.3 gm/dl (2.5-4.0); Magnesium 2.1 mg/dl (1.7-2.4); Total Protein 4.2 gm/dl (6.0-8.3)
[2025-01-24 06:12] LABS: Hematocrit (blood only) 22.5 % (37.0-47.0); Hemoglobin 7.5 g/dl (12.0-16.0); Mean Corpuscular Hgb Conc 33.3 g/dL (32.0-36.0); Mean Platelet Volume 12.1 fL (9.4-12.4); Platelet Count 100 K/uL (130-400); RDW Coefficient of Variation 16.3 % (11.5-14.5); RDW Standard Deviation 49.6 fL (36.4-46.3); Red Blood Count 2.68 M/uL (4.20-5.40)
[2025-01-24 06:15] LABS: ALC (manual) 0.47 K/uL (1.2-3.4); ANC (manual) 0.51 K/uL (1.4-6.5); Eosinophils # (manual) 0.01 K/uL (0-0.50); Eosinophils % (manual) 1 %; Lymphocytes # (manual) 0.47 K/uL (1.2-3.4); Lymphocytes % (manual) 47 %; Metamyelocytes # (manual) 0.01 K/uL (0-0); Metamyelocytes % (manual) 1 %; Neutrophils # (manual) 0.51 K/uL (1.40-6.50); Neutrophils % (manual) 51 %; Toxic Vacuolation 1+
[2025-01-24 07:14] LABS: Hemoglobin 7.3 g/dl (12.0-16.0); Mean Corpuscular Hemoglobin 27.8 pg (25.0-34.0); Mean Corpuscular Hgb Conc 33.2 g/dL (32.0-36.0); Mean Corpuscular Volume 83.7 fL (80.0-100.0); Mean Platelet Volume 11.3 fL (9.4-12.4); Platelet Count 90 K/uL (130-400); RDW Coefficient of Variation 16.3 % (11.5-14.5); RDW Standard Deviation 48.6 fL (36.4-46.3); Red Blood Count 2.63 M/uL (4.20-5.40); White Blood Count 0.83 K/ul (4.8-10.8)
--- NOTE | 2025-01-24 07:42 | Pulmonology Progress Note ---
Date of Service January 24, 2025 Assessment & Plan (1) Ischemic foot: (2) Peritoneal carcinomatosis: (3) Ascites: Ascites type: other type Qualified Code(s): R18.8 - Other ascites (4) Pleural effusion: Plan Impression: 69-year-old female with history of asthma now with widely metastatic ovarian carcinoma status postchemotherapy with malignant pleural effusions and malignant ascites admitted with ischemic lower extremity. Status post Pleurx placement on the left 01/23/2025 for palliative measures. Recommendations: 1. Malignant pleural effusions: Drain Pleurx on the right on an every other day basis and see if she gets continued relief. Could consider placement on the left however the patient is doing well clinically with minimal symptoms. The only indication to place the catheter would be for symptomatic improvement and if she is not having symptoms would defer additional invasive procedures. If we are to pursue placement, anticoagulation would need to be held. 2. Asthma: Continue inhalers. Patient condition appears to be declining. She is quite frail. I doubt she could handle additional systemic cytotoxic therapy. Would favor transition to comfort care measures and discussed CODE STATUS is a think ACLS, intubation, and CPR would likely be ineffective in improving the patient's overall quantity or quality of life. Admission and Anticipated Discharge Date Admission Date: January 22, 2025 Subjective Patient seen and examined. EMR reviewed. Discussed with bedside nurse. Patient appears quite frail. A Pleurx was placed yesterday. She does report some relief from her shortness of breath. This morning she is complaining of a sore throat and some loss of voice. No pain at the Pleurx insertion site. Review of Systems 2 Review of Systems: All systems reviewed & are unremarkable except as noted in Subjective Physical Exam 2 Constitutional: WD/WN, vitals as above + ill appearing, + obese and + frail appearing; not in distress Respiratory: normal respiratory effort; no respiratory distress A uscultation: + diminished lung sounds and + crackles; no wheezes Cardiovascular: Rate/Rhythm: regular rate and regular rhythm Vessels: p osterior tibial pulses present (LLE easily dopplerable. RLE no doppler) and dorsalis pedis pulses present (LLE easily dopplerable. RLE no doppler); + abnormal peripheral pulses Extremities: + pedal edema and + edema (+4); + abnormal capillary refill (RLE mottled, no refill) Gastrointestinal (Abdomen): Inspection/Auscultation: + abdominal edema P ercussion/Palpation: abdomen soft and + ascites; abdomen nontender Skin: + mottling (RLE, cold to ankle) Neurologic: moves all extremities (RLE toes decreased movement), awake and + confused (mild, slow to process); no focal motor deficits Psychiatric: Orientation: alert, oriented to person, oriented to place and cooperative; + not oriented to time Results & Data Results & Data Vital Signs (Past 12 Hours) Vital Signs Temp Pulse Pulse Resp BP Pulse Ox O2 Del Method 01/24/25 04:00 91 H 20 95 Nasal Cannula 01/24/25 04:00 103/70 01/24/25 00:00 92 H 01/24/25 00:00 92 H 16 129/73 96 01/24/25 00:00 36.9 C Nasal Cannula 01/23/25 20:01 94 H 18 141/53 H 97 Nasal Cannula 01/23/25 20:00 Nasal Cannula 01/23/25 20:00 92 H 01/23/25 20:00 36.8 C 01/23/25 19:49 92 H 16 96 Nasal Cannula O2 Flow Rate 01/24/25 04:00 2 01/24/25 04:00 01/24/25 00:00 01/24/25 00:00 01/24/25 00:00 2 01/23/25 20:01 2 01/23/25 20:00 2 01/23/25 20:00 01/23/25 20:00 01/23/25 19:49 2 Laboratory Results 01/24/25 06:45 01/24/25 04:36 Diagnostic Findings Post Pleurx catheter chest x-ray performed yesterday independently reviewed. Catheter is in good position. Resolution of the right-sided pleural effusion. No pneumothorax. Small effusion on the left. PG Care Time/CCT Total # of Minutes Spent Total Time Spent with Patient: Total time spent is greater than 50% in coordination of care (as documented) at patient's floor/unit and/or counseling patient: Coding Level of Care Code 86053 SUB INP/OBS CARE 2/35MIN Diagnoses Ischemic foot I99.8 Peritoneal carcinomatosis C78.6 Ascites R18.8 Ascites type: other type Pleural effusion J90
[2025-01-24 07:51] LABS: ALC (manual) 0.44 K/uL (1.2-3.4); ANC (manual) 0.37 K/uL (1.4-6.5); Lymphocytes # (manual) 0.44 K/uL (1.2-3.4); Lymphocytes % (manual) 53 %; Monocytes # (manual) 0.02 K/uL (0.11-0.59); Monocytes % (manual) 2 %; Neutrophils % (manual) 45 %; Polychromasia 1+; Target Cells 1+; Toxic Granulation 1+
[2025-01-24 08:01] LABS: Neutrophils # (manual) 0.37 K/uL (1.40-6.50)
[2025-01-24 08:58] LABS: ANTI-Xa, UFH(UnfractionatedHep 0.16 IU/ml (0.3-0.7)
[2025-01-24] MEDS: BENZOCAINE/MENTHOL 18 LOZ/1 BOX MT PRN (09:23)
[2025-01-24] MEDS: HEPARIN SOD (PORCINE) 1000 UNIT/ML IV ONE (10:08)
[2025-01-24] MEDS: FILGRASTIM 480 MCG/1.6 ML VIAL SC SCH (10:09)
--- NOTE | 2025-01-24 10:52 | Palliative Care Progress Note ---
Date of Service January 24, 2025 Assessment & Plan (1) Dyspnea and respiratory abnormalities: (2) Cough: (3) Cancer related pain: (4) Advanced care planning/counseling discussion: Plan: A face to face ACP was held with pt at bedside for 30 min then a 20min call to her sister/SDM Dawn for ACP was also done, for a total of 50min. We discussed clinical events to date, dropping cell counts, progressive weakness and increasing symptom burden. Palliative prognostics scores suggest risk of mortality within 3-4 weeks under current condition. I met with Lyn and also spoke with her sister, Dawn, who will be en route to [place] later today, hoping to arrive late tomorrow (Dawn is traveling with a 12 yo son, they will be stopping along the way.) We discussed CPR, survival from CPR and the risks/benefits of CPR in context of advancing illness. Patient and sister agreed to no code. We discussed that we will keep doing what we are presently doing but if she declines further/acutely worsens, we will move to [employer]. Patient and sister in agreement. Both reaffirm aim to assure no suffering if in an EOL process, pt is very fearful of suffering at EOL and she is afraid of dying. I have asked parking cashier to come visit with her to help her navigate this realm of her worries and fears. Code order changed. I will follow up tomorrow. Please page me for any urgent needs. Both pt and sister understand surgery right now would be very high risk given her cell counts. Dawn is clear that if Lyn is worsening, do not prolong suffering or dying and please assure she is comfortable. I updated medical teams, nursing and care mgt (5) Palliative care by specialist: Plan: For Oncology Patients: Patient's Palliative Prognostic Score (PaP) Score = 13.5 points (Interpretation:30-day survival probability <30%) Patient's Palliative Prognostic Index (PPI) Score = 9.5 points --> Note:If the PPI is greater than 6.0, survival is less than three weeks (Sensitivity - 80%; Specificity - 85%). 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 Please page with any additional concerns. Sandi Kim DNP Director, Palliative Medicine Admission and Anticipated Discharge Date Admission Date: January 22, 2025 Subjective Inc pain and dyspnea pleurx in place worsening dry cough at times sounds slightly bronchitic denies chest pain now on neutropenic precautions no family at bedside CA 125 on 01/02/25 was [id number] A repeat was sent 01/23/25, it is a send out lab and we are hoping to get results tomorrow Review of Systems Review of Systems: All systems reviewed & are unremarkable except as noted in Subjective Physical Exam Physical Exam: Elderly female, appears older than stated age, acutely ill, supine in bed. She is awake but fatigued, she is more frail appearing today than yesterday with a more waxen appearance. There is mild bitemporal wasting noted. She is frail-appearing. Respiratory effort is increased with a frequent dry but rattly cough. There is no stridor. Lungs are diminished with crackles. There is no wheezing noted. CV S1-S2, regular rhythm. Abdomen is soft. Bowel sounds are present. +wound vac She is able to move her extremities with +gen weakness. Left lower extremity pedal pulse intact, right lower extremity no palpable pulse. Right lower extremity is mottled and cool to touch. BLE 2-3+ edema. She is awake and alert to self and place. CAM-ICU screening is negative. Results & Data Vital Signs (Past 12 Hours) Vital Signs Temp Pulse Resp BP Pulse Ox O2 Del Method O2 Flow Rate 01/24/25 08:41 87 01/24/25 08:06 91 H 18 97 Room Air 01/24/25 08:01 136/83 01/24/25 08:00 36.9 C 01/24/25 04:00 91 H 20 95 Nasal Cannula 2 01/24/25 04:00 103/70 01/24/25 00:00 92 H 01/24/25 00:00 92 H 16 129/73 96 01/24/25 00:00 36.9 C Nasal Cannula 2 Laboratory Results 01/24/25 01/24/25 01/24/25 Range/Units 08:14 07:19 06:45 WBC 0.83 L* (4.8-10.8) K/ul RBC 2.63 L (4.20-5.40) M/uL Hgb 7.3 L (12.0-16.0) g/dl Hct 22.0 L (37.0-47.0) % MCV 83.7 (80.0-100.0) fL MCH 27.8 (25.0-34.0) pg MCHC 33.2 (32.0-36.0) g/dL RDW Std Deviation 48.6 H (36.4-46.3) fL RDW Coeff of Sol 16.3 H (11.5-14.5) % Plt Count 90 L (130-400) K/uL MPV 11.3 (9.4-12.4) fL Immature Gran % (Auto) % Neut % (Auto) % Lymph % (Auto) % [place] % (Auto) % Eos % (Auto) % Baso % (Auto) % Neut # (Auto) (1.40-6.50) K/uL Lymph # (Auto) (1.20-3.40) K/uL [place] # (Auto) (0.11-0.59) K/uL Eos # (Auto) (0.00-0.50) K/uL Baso # (Auto) (0.00-0.20) K/uL Immature Gran # (Auto) (0.01-0.20) K/uL Absolute Nucleated RBC (0.00-0.12) K/uL Nucleated RBC % (auto) % Neutrophils % (Manual) 45 % Lymphocytes % (Manual) 53 % Monocytes % (Manual) 2 % Eosinophils % (Manual) % Metamyelocytes % (Man) % Neutrophils # (Manual) 0.37 L (1.40-6.50) K/uL Total Absolute Neuts 0.37 L* (1.4-6.5) K/uL Lymphocytes # (Manual) 0.44 L (1.2-3.4) K/uL Total Abs Lymphocytes 0.44 L (1.2-3.4) K/uL Monocytes # (Manual) 0.02 L (0.11-0.59) K/uL Eosinophils # (Manual) (0-0.50) K/uL Metamyelocytes # (Man) (0-0) K/uL Hyposegmented Neuts Toxic Granulation 1+ Toxic Vacuolation Polychromasia 1+ Target Cells 1+ PT (9.0-12.0) Seconds INR (0.9-1.1) APTT (21-31) Seconds PTT Ratio Fibrinogen (184-400) mg/dl Heparin Anti-Xa, Unfract 0.16 L (0.3-0.7) IU/ml Sodium (136-145) mmol/L Potassium (3.5-5.1) mmol/L Chloride (98-107) mmol/L Carbon Dioxide (21-32) mmol/L Anion Gap (3-11) BUN (6-23) mg/dl Creatinine (0.6-1.2) mg/dl Est Cr Clr Drug Dosing ml/min eGFR BUN/Creatinine Ratio (10-20) Glucose (70-99(Fasting)) mg/dl POC Glucose 155 H (70-99) mg/dl Lactate (0.4-2.0) mmol/L Calcium (8.6-10.3) mg/dl Phosphorus (2.5-4.9) mg/dl Magnesium (1.7-2.4) mg/dl Total Bilirubin (0.2-1.0) mg/dl Direct Bilirubin (0-0.2) mg/dl AST (13-39) U/L ALT (7-52) U/L Alkaline Phosphatase (34-104) U/L Troponin I High Sens (0-14) pg/ml B-Natriuretic Peptide (0-100) pg/ml Total Protein (6.0-8.3) gm/dl Albumin (3.4-5.0) gm/dl Globulin (2.5-4.0) gm/dl Albumin/Globulin Ratio (0.9-2) Lipase (11-82) U/L [place] 125 Antigen Procalcitonin (0-0.5) ng/ml TSH (0.300-4.500) uIu/ml Free T4 (0.61-1.60) ng/dl Urine Color Urine Appearance (Clear) Urine pH (4.5-7.5) Ur Specific [place] (1.000-1.030) Urine Protein (Negative) Urine Glucose (UA) (Negative) Urine Ketones (Negative) Urine Blood (Negative) Urine Nitrite (Negative) Urine Bilirubin (Negative) Urine Urobilinogen (Negative) Ur Leukocyte Esterase (Negative) Urine WBC (Auto) (0-5) /hpf Urine RBC (Auto) (0-2) /hpf U Hyaline Cast (Auto) (0-2) /lpf U Epithel Cells (Auto) (0-2) /hpf Urine Bacteria (Auto) (None Seen) Adenovirus (PCR) (NotDetected) B. pertussis DNA (PCR) (NotDetected) B.parapertussis DNA PCR (NotDetected) C. pneumoniae DNA (PCR) (NotDetected) Coronavirus OC43 (PCR) (NotDetected) Coronavirus HKU1 (PCR) (NotDetected) Coronavirus 229E (PCR) (NotDetected) SARS-CoV-2 (PCR) (NotDetected) Coronavirus NL63 (PCR) (NotDetected) Human Metapneumovir PCR (NotDetected) Influenza Type A (PCR) (NotDetected) Influenza Type B (PCR) (NotDetected) M. pneumoniae (PCR) (NotDetected) Parainfluenza 1 (PCR) (NotDetected) Parainfluenza 2 (PCR) (NotDetected) Parainfluenza 3 (PCR) (NotDetected) Parainfluenza 4 (PCR) (NotDetected) RSV (PCR) (NotDetected) Entero/Rhino (PCR) (NotDetected) Blood Type Blood Type Recheck Antibody Screen Crossmatch 01/24/25 01/24/25 01/23/25 Range/Units 04:36 01:13 20:42 WBC 1.00 L D (4.8-10.8) K/ul RBC 2.68 L (4.20-5.40) M/uL Hgb 7.5 L (12.0-16.0) g/dl Hct 22.5 L (37.0-47.0) % MCV 84.0 (80.0-100.0) fL MCH 28.0 (25.0-34.0) pg MCHC 33.3 (32.0-36.0) g/dL RDW Std Deviation 49.6 H (36.4-46.3) fL RDW Coeff of Sol 16.3 H (11.5-14.5) % Plt Count 100 L (130-400) K/uL MPV 12.1 (9.4-12.4) fL Immature Gran % (Auto) % Neut % (Auto) % Lymph % (Auto) % [place] % (Auto) % Eos % (Auto) % Baso % (Auto) % Neut # (Auto) (1.40-6.50) K/uL Lymph # (Auto) (1.20-3.40) K/uL [place] # (Auto) (0.11-0.59) K/uL Eos # (Auto) (0.00-0.50) K/uL Baso # (Auto) (0.00-0.20) K/uL Immature Gran # (Auto) (0.01-0.20) K/uL Absolute Nucleated RBC (0.00-0.12) K/uL Nucleated RBC % (auto) % Neutrophils % (Manual) 51 % Lymphocytes % (Manual) 47 % Monocytes % (Manual) % Eosinophils % (Manual) 1 % Metamyelocytes % (Man) 1 % Neutrophils # (Manual) 0.51 L (1.40-6.50) K/uL Total Absolute Neuts 0.51 L* (1.4-6.5) K/uL Lymphocytes # (Manual) 0.47 L (1.2-3.4) K/uL Total Abs Lymphocytes 0.47 L (1.2-3.4) K/uL Monocytes # (Manual) (0.11-0.59) K/uL Eosinophils # (Manual) 0.01 (0-0.50) K/uL Metamyelocytes # (Man) 0.01 H (0-0) K/uL Hyposegmented Neuts 1+ Toxic Granulation Toxic Vacuolation 1+ Polychromasia Target Cells PT (9.0-12.0) Seconds INR (0.9-1.1) APTT (21-31) Seconds PTT Ratio Fibrinogen (184-400) mg/dl Heparin Anti-Xa, Unfract 0.23 L (0.3-0.7) IU/ml Sodium 130 L (136-145) mmol/L Potassium 4.0 (3.5-5.1) mmol/L Chloride 99 (98-107) mmol/L Carbon Dioxide 28 (21-32) mmol/L Anion Gap 3 (3-11) BUN 48 H (6-23) mg/dl Creatinine 1.31 H (0.6-1.2) mg/dl Est Cr Clr Drug Dosing 37.9 ml/min eGFR 44.66 BUN/Creatinine Ratio 36.6 H (10-20) Glucose 127 H (70-99(Fasting)) mg/dl POC Glucose 162 H (70-99) mg/dl Lactate (0.4-2.0) mmol/L Calcium 7.0 L (8.6-10.3) mg/dl Phosphorus (2.5-4.9) mg/dl Magnesium 2.1 (1.7-2.4) mg/dl Total Bilirubin 1.9 H (0.2-1.0) mg/dl Direct Bilirubin (0-0.2) mg/dl AST 107 H (13-39) U/L ALT 64 H (7-52) U/L Alkaline Phosphatase 276 H (34-104) U/L Troponin I High Sens (0-14) pg/ml B-Natriuretic Peptide (0-100) pg/ml Total Protein 4.2 L (6.0-8.3) gm/dl Albumin 1.9 L (3.4-5.0) gm/dl Globulin 2.3 L (2.5-4.0) gm/dl Albumin/Globulin Ratio 0.8 L (0.9-2) Lipase (11-82) U/L [place] 125 Antigen Procalcitonin (0-0.5) ng/ml TSH (0.300-4.500) uIu/ml Free T4 (0.61-1.60) ng/dl Urine Color Urine Appearance (Clear) Urine pH (4.5-7.5) Ur Specific [place] (1.000-1.030) Urine Protein (Negative) Urine Glucose (UA) (Negative) Urine Ketones (Negative) Urine Blood (Negative) Urine Nitrite (Negative) Urine Bilirubin (Negative) Urine Urobilinogen (Negative) Ur Leukocyte Esterase (Negative) Urine WBC (Auto) (0-5) /hpf Urine RBC (Auto) (0-2) /hpf U Hyaline Cast (Auto) (0-2) /lpf U Epithel Cells (Auto) (0-2) /hpf Urine Bacteria (Auto) (None Seen) Adenovirus (PCR) (NotDetected) B. pertussis DNA (PCR) (NotDetected) B.parapertussis DNA PCR (NotDetected) C. pneumoniae DNA (PCR) (NotDetected) Coronavirus OC43 (PCR) (NotDetected) Coronavirus HKU1 (PCR) (NotDetected) Coronavirus 229E (PCR) (NotDetected) SARS-CoV-2 (PCR) (NotDetected) Coronavirus NL63 (PCR) (NotDetected) Human Metapneumovir PCR (NotDetected) Influenza Type A (PCR) (NotDetected) Influenza Type B (PCR) (NotDetected) M. pneumoniae (PCR) (NotDetected) Parainfluenza 1 (PCR) (NotDetected) Parainfluenza 2 (PCR) (NotDetected) Parainfluenza 3 (PCR) (NotDetected) Parainfluenza 4 (PCR) (NotDetected) RSV (PCR) (NotDetected) Entero/Rhino (PCR) (NotDetected) Blood Type Blood Type Recheck Antibody Screen Crossmatch 01/23/25 01/23/25 01/23/25 Range/Units 16:19 11:23 11:06 WBC (4.8-10.8) K/ul RBC (4.20-5.40) M/uL Hgb (12.0-16.0) g/dl Hct (37.0-47.0) % MCV (80.0-100.0) fL MCH (25.0-34.0) pg MCHC (32.0-36.0) g/dL RDW Std Deviation (36.4-46.3) fL RDW Coeff of Sol (11.5-14.5) % Plt Count (130-400) K/uL MPV (9.4-12.4) fL Immature Gran % (Auto) % Neut % (Auto) % Lymph % (Auto) % [place] % (Auto) % Eos % (Auto) % Baso % (Auto) % Neut # (Auto) (1.40-6.50) K/uL Lymph # (Auto) (1.20-3.40) K/uL [place] # (Auto) (0.11-0.59) K/uL Eos # (Auto) (0.00-0.50) K/uL Baso # (Auto) (0.00-0.20) K/uL Immature Gran # (Auto) (0.01-0.20) K/uL Absolute Nucleated RBC (0.00-0.12) K/uL Nucleated RBC % (auto) % Neutrophils % (Manual) % Lymphocytes % (Manual) % Monocytes % (Manual) % Eosinophils % (Manual) % Metamyelocytes % (Man) % Neutrophils # (Manual) (1.40-6.50) K/uL Total Absolute Neuts (1.4-6.5) K/uL Lymphocytes # (Manual) (1.2-3.4) K/uL Total Abs Lymphocytes (1.2-3.4) K/uL Monocytes # (Manual) (0.11-0.59) K/uL Eosinophils # (Manual) (0-0.50) K/uL Metamyelocytes # (Man) (0-0) K/uL Hyposegmented Neuts Toxic Granulation Toxic Vacuolation Polychromasia Target Cells PT (9.0-12.0) Seconds INR (0.9-1.1) APTT (21-31) Seconds PTT Ratio Fibrinogen (184-400) mg/dl Heparin Anti-Xa, Unfract < 0.10 L (0.3-0.7) IU/ml Sodium (136-145) mmol/L Potassium (3.5-5.1) mmol/L Chloride (98-107) mmol/L Carbon Dioxide (21-32) mmol/L Anion Gap (3-11) BUN (6-23) mg/dl Creatinine (0.6-1.2) mg/dl Est Cr Clr Drug Dosing ml/min eGFR BUN/Creatinine Ratio (10-20) Glucose (70-99(Fasting)) mg/dl POC Glucose 164 H 210 H (70-99) mg/dl Lactate (0.4-2.0) mmol/L Calcium (8.6-10.3) mg/dl Phosphorus (2.5-4.9) mg/dl Magnesium (1.7-2.4) mg/dl Total Bilirubin (0.2-1.0) mg/dl Direct Bilirubin (0-0.2) mg/dl AST (13-39) U/L ALT (7-52) U/L Alkaline Phosphatase (34-104) U/L Troponin I High Sens (0-14) pg/ml B-Natriuretic Peptide (0-100) pg/ml Total Protein (6.0-8.3) gm/dl Albumin (3.4-5.0) gm/dl Globulin (2.5-4.0) gm/dl Albumin/Globulin Ratio (0.9-2) Lipase (11-82) U/L CA 125 Antigen Pending Procalcitonin (0-0.5) ng/ml TSH (0.300-4.500) uIu/ml Free T4 (0.61-1.60) ng/dl Urine Color Urine Appearance (Clear) Urine pH (4.5-7.5) Ur Specific [place] (1.000-1.030) Urine Protein (Negative) Urine Glucose (UA) (Negative) Urine Ketones (Negative) Urine Blood (Negative) Urine Nitrite (Negative) Urine Bilirubin (Negative) Urine Urobilinogen (Negative) Ur Leukocyte Esterase (Negative) Urine WBC (Auto) (0-5) /hpf Urine RBC (Auto) (0-2) /hpf U Hyaline Cast (Auto) (0-2) /lpf U Epithel Cells (Auto) (0-2) /hpf Urine Bacteria (Auto) (None Seen) Adenovirus (PCR) (NotDetected) B. pertussis DNA (PCR) (NotDetected) B.parapertussis DNA PCR (NotDetected) C. pneumoniae DNA (PCR) (NotDetected) Coronavirus OC43 (PCR) (NotDetected) Coronavirus HKU1 (PCR) (NotDetected) Coronavirus 229E (PCR) (NotDetected) SARS-CoV-2 (PCR) (NotDetected) Coronavirus NL63 (PCR) (NotDetected) Human Metapneumovir PCR (NotDetected) Influenza Type A (PCR) (NotDetected) Influenza Type B (PCR) (NotDetected) M. pneumoniae (PCR) (NotDetected) Parainfluenza 1 (PCR) (NotDetected) Parainfluenza 2 (PCR) (NotDetected) Parainfluenza 3 (PCR) (NotDetected) Parainfluenza 4 (PCR) (NotDetected) RSV (PCR) (NotDetected) Entero/Rhino (PCR) (NotDetected) Blood Type Blood Type Recheck Antibody Screen Crossmatch 01/23/25 01/23/25 01/23/25 Range/Units 07:24 05:30 04:38 WBC 6.42 (4.8-10.8) K/ul RBC 3.02 L (4.20-5.40) M/uL Hgb 8.4 L (12.0-16.0) g/dl Hct 25.4 L (37.0-47.0) % MCV 84.1 (80.0-100.0) fL MCH 27.8 (25.0-34.0) pg MCHC 33.1 (32.0-36.0) g/dL RDW Std Deviation 49.6 H (36.4-46.3) fL RDW Coeff of Sol 16.3 H (11.5-14.5) % Plt Count 144 (130-400) K/uL MPV 10.7 (9.4-12.4) fL Immature Gran % (Auto) % Neut % (Auto) % Lymph % (Auto) % [place] % (Auto) % Eos % (Auto) % Baso % (Auto) % Neut # (Auto) (1.40-6.50) K/uL Lymph # (Auto) (1.20-3.40) K/uL [place] # (Auto) (0.11-0.59) K/uL Eos # (Auto) (0.00-0.50) K/uL Baso # (Auto) (0.00-0.20) K/uL Immature Gran # (Auto) (0.01-0.20) K/uL Absolute Nucleated RBC 0.02 (0.00-0.12) K/uL Nucleated RBC % (auto) 0.3 % Neutrophils % (Manual) % Lymphocytes % (Manual) % Monocytes % (Manual) % Eosinophils % (Manual) % Metamyelocytes % (Man) % Neutrophils # (Manual) (1.40-6.50) K/uL Total Absolute Neuts (1.4-6.5) K/uL Lymphocytes # (Manual) (1.2-3.4) K/uL Total Abs Lymphocytes (1.2-3.4) K/uL Monocytes # (Manual) (0.11-0.59) K/uL Eosinophils # (Manual) (0-0.50) K/uL Metamyelocytes # (Man) (0-0) K/uL Hyposegmented Neuts Toxic Granulation Toxic Vacuolation Polychromasia Target Cells PT (9.0-12.0) Seconds INR (0.9-1.1) APTT (21-31) Seconds PTT Ratio Fibrinogen (184-400) mg/dl Heparin Anti-Xa, Unfract 0.33 (0.3-0.7) IU/ml Sodium 135 L (136-145) mmol/L Potassium 4.2 (3.5-5.1) mmol/L Chloride 103 (98-107) mmol/L Carbon Dioxide 27 (21-32) mmol/L Anion Gap 5 (3-11) BUN 47 H (6-23) mg/dl Creatinine 1.22 H (0.6-1.2) mg/dl Est Cr Clr Drug Dosing 40.1 ml/min eGFR 48.64 BUN/Creatinine Ratio 38.5 H (10-20) Glucose 153 H (70-99(Fasting)) mg/dl POC Glucose 191 H (70-99) mg/dl Lactate (0.4-2.0) mmol/L Calcium 7.4 L (8.6-10.3) mg/dl Phosphorus (2.5-4.9) mg/dl Magnesium 1.8 (1.7-2.4) mg/dl Total Bilirubin 1.3 H (0.2-1.0) mg/dl Direct Bilirubin 0.7 H (0-0.2) mg/dl AST 99 H (13-39) U/L ALT 69 H (7-52) U/L Alkaline Phosphatase 245 H (34-104) U/L Troponin I High Sens (0-14) pg/ml B-Natriuretic Peptide (0-100) pg/ml Total Protein 3.9 L (6.0-8.3) gm/dl Albumin 1.8 L (3.4-5.0) gm/dl Globulin (2.5-4.0) gm/dl Albumin/Globulin Ratio (0.9-2) Lipase (11-82) U/L CA 125 Antigen Procalcitonin (0-0.5) ng/ml TSH (0.300-4.500) uIu/ml Free T4 (0.61-1.60) ng/dl Urine Color Urine Appearance (Clear) Urine pH (4.5-7.5) Ur Specific [place] (1.000-1.030) Urine Protein (Negative) Urine Glucose (UA) (Negative) Urine Ketones (Negative) Urine Blood (Negative) Urine Nitrite (Negative) Urine Bilirubin (Negative) Urine Urobilinogen (Negative) Ur Leukocyte Esterase (Negative) Urine WBC (Auto) (0-5) /hpf Urine RBC (Auto) (0-2) /hpf U Hyaline Cast (Auto) (0-2) /lpf U Epithel Cells (Auto) (0-2) /hpf Urine Bacteria (Auto) (None Seen) Adenovirus (PCR) (NotDetected) B. pertussis DNA (PCR) (NotDetected) B.parapertussis DNA PCR (NotDetected) C. pneumoniae DNA (PCR) (NotDetected) Coronavirus OC43 (PCR) (NotDetected) Coronavirus HKU1 (PCR) (NotDetected) Coronavirus 229E (PCR) (NotDetected) SARS-CoV-2 (PCR) (NotDetected) Coronavirus NL63 (PCR) (NotDetected) Human Metapneumovir PCR (NotDetected) Influenza Type A (PCR) (NotDetected) Influenza Type B (PCR) (NotDetected) M. pneumoniae (PCR) (NotDetected) Parainfluenza 1 (PCR) (NotDetected) Parainfluenza 2 (PCR) (NotDetected) Parainfluenza 3 (PCR) (NotDetected) Parainfluenza 4 (PCR) (NotDetected) RSV (PCR) (NotDetected) Entero/Rhino (PCR) (NotDetected) Blood Type Blood Type Recheck Antibody Screen Crossmatch 01/22/25 01/22/25 01/22/25 Range/Units 21:18 20:10 20:06 WBC (4.8-10.8) K/ul RBC (4.20-5.40) M/uL Hgb (12.0-16.0) g/dl Hct (37.0-47.0) % MCV (80.0-100.0) fL MCH (25.0-34.0) pg MCHC (32.0-36.0) g/dL RDW Std Deviation (36.4-46.3) fL RDW Coeff of Sol (11.5-14.5) % Plt Count (130-400) K/uL MPV (9.4-12.4) fL Immature Gran % (Auto) % Neut % (Auto) % Lymph % (Auto) % [place] % (Auto) % Eos % (Auto) % Baso % (Auto) % Neut # (Auto) (1.40-6.50) K/uL Lymph # (Auto) (1.20-3.40) K/uL [place] # (Auto) (0.11-0.59) K/uL Eos # (Auto) (0.00-0.50) K/uL Baso # (Auto) (0.00-0.20) K/uL Immature Gran # (Auto) (0.01-0.20) K/uL Absolute Nucleated RBC (0.00-0.12) K/uL Nucleated RBC % (auto) % Neutrophils % (Manual) % Lymphocytes % (Manual) % Monocytes % (Manual) % Eosinophils % (Manual) % Metamyelocytes % (Man) % Neutrophils # (Manual) (1.40-6.50) K/uL Total Absolute Neuts (1.4-6.5) K/uL Lymphocytes # (Manual) (1.2-3.4) K/uL Total Abs Lymphocytes (1.2-3.4) K/uL Monocytes # (Manual) (0.11-0.59) K/uL Eosinophils # (Manual) (0-0.50) K/uL Metamyelocytes # (Man) (0-0) K/uL Hyposegmented Neuts Toxic Granulation Toxic Vacuolation Polychromasia Target Cells PT 18.9 H (9.0-12.0) Seconds INR 1.8 H (0.9-1.1) APTT 46 H 51 H (21-31) Seconds PTT Ratio 1.7 1.9 Fibrinogen (184-400) mg/dl Heparin Anti-Xa, Unfract < 0.10 L (0.3-0.7) IU/ml Sodium (136-145) mmol/L Potassium (3.5-5.1) mmol/L Chloride (98-107) mmol/L Carbon Dioxide (21-32) mmol/L Anion Gap (3-11) BUN (6-23) mg/dl Creatinine (0.6-1.2) mg/dl Est Cr Clr Drug Dosing ml/min eGFR BUN/Creatinine Ratio (10-20) Glucose (70-99(Fasting)) mg/dl POC Glucose 133 H (70-99) mg/dl Lactate (0.4-2.0) mmol/L Calcium (8.6-10.3) mg/dl Phosphorus (2.5-4.9) mg/dl Magnesium (1.7-2.4) mg/dl Total Bilirubin (0.2-1.0) mg/dl Direct Bilirubin (0-0.2) mg/dl AST (13-39) U/L ALT (7-52) U/L Alkaline Phosphatase (34-104) U/L Troponin I High Sens (0-14) pg/ml B-Natriuretic Peptide (0-100) pg/ml Total Protein (6.0-8.3) gm/dl Albumin (3.4-5.0) gm/dl Globulin (2.5-4.0) gm/dl Albumin/Globulin Ratio (0.9-2) Lipase (11-82) U/L CA 125 Antigen Procalcitonin (0-0.5) ng/ml TSH (0.300-4.500) uIu/ml Free T4 (0.61-1.60) ng/dl Urine Color Urine Appearance (Clear) Urine pH (4.5-7.5) Ur Specific [place] (1.000-1.030) Urine Protein (Negative) Urine Glucose (UA) (Negative) Urine Ketones (Negative) Urine Blood (Negative) Urine Nitrite (Negative) Urine Bilirubin (Negative) Urine Urobilinogen (Negative) Ur Leukocyte Esterase (Negative) Urine WBC (Auto) (0-5) /hpf Urine RBC (Auto) (0-2) /hpf U Hyaline Cast (Auto) (0-2) /lpf U Epithel Cells (Auto) (0-2) /hpf Urine Bacteria (Auto) (None Seen) Adenovirus (PCR) (NotDetected) B. pertussis DNA (PCR) (NotDetected) B.parapertussis DNA PCR (NotDetected) C. pneumoniae DNA (PCR) (NotDetected) Coronavirus OC43 (PCR) (NotDetected) Coronavirus HKU1 (PCR) (NotDetected) Coronavirus 229E (PCR) (NotDetected) SARS-CoV-2 (PCR) (NotDetected) Coronavirus NL63 (PCR) (NotDetected) Human Metapneumovir PCR (NotDetected) Influenza Type A (PCR) (NotDetected) Influenza Type B (PCR) (NotDetected) M. pneumoniae (PCR) (NotDetected) Parainfluenza 1 (PCR) (NotDetected) Parainfluenza 2 (PCR) (NotDetected) Parainfluenza 3 (PCR) (NotDetected) Parainfluenza 4 (PCR) (NotDetected) RSV (PCR) (NotDetected) Entero/Rhino (PCR) (NotDetected) Blood Type Blood Type Recheck Antibody Screen Crossmatch 01/22/25 01/22/25 01/22/25 Range/Units 18:02 17:52 16:50 WBC 9.13 9.43 (4.8-10.8) K/ul RBC 2.96 L 2.93 L (4.20-5.40) M/uL Hgb 8.3 L 8.3 L (12.0-16.0) g/dl Hct 25.7 L 25.2 L (37.0-47.0) % MCV 86.8 86.0 (80.0-100.0) fL MCH 28.0 28.3 (25.0-34.0) pg MCHC 32.3 32.9 (32.0-36.0) g/dL RDW Std Deviation 54.0 H 54.7 H (36.4-46.3) fL RDW Coeff of Sol 17.3 H 17.3 H (11.5-14.5) % Plt Count 188 190 (130-400) K/uL MPV 10.7 10.8 (9.4-12.4) fL Immature Gran % (Auto) % Neut % (Auto) % Lymph % (Auto) % [place] % (Auto) % Eos % (Auto) % Baso % (Auto) % Neut # (Auto) (1.40-6.50) K/uL Lymph # (Auto) (1.20-3.40) K/uL [place] # (Auto) (0.11-0.59) K/uL Eos # (Auto) (0.00-0.50) K/uL Baso # (Auto) (0.00-0.20) K/uL Immature Gran # (Auto) (0.01-0.20) K/uL Absolute Nucleated RBC 0.02 (0.00-0.12) K/uL Nucleated RBC % (auto) 0.2 % Neutrophils % (Manual) % Lymphocytes % (Manual) % Monocytes % (Manual) % Eosinophils % (Manual) % Metamyelocytes % (Man) % Neutrophils # (Manual) (1.40-6.50) K/uL Total Absolute Neuts (1.4-6.5) K/uL Lymphocytes # (Manual) (1.2-3.4) K/uL Total Abs Lymphocytes (1.2-3.4) K/uL Monocytes # (Manual) (0.11-0.59) K/uL Eosinophils # (Manual) (0-0.50) K/uL Metamyelocytes # (Man) (0-0) K/uL Hyposegmented Neuts Toxic Granulation Toxic Vacuolation Polychromasia Target Cells PT 19.7 H (9.0-12.0) Seconds INR 1.9 H (0.9-1.1) APTT > 139 H* (21-31) Seconds PTT Ratio > 4.9 Fibrinogen 370 (184-400) mg/dl Heparin Anti-Xa, Unfract (0.3-0.7) IU/ml Sodium (136-145) mmol/L Potassium (3.5-5.1) mmol/L Chloride (98-107) mmol/L Carbon Dioxide (21-32) mmol/L Anion Gap (3-11) BUN (6-23) mg/dl Creatinine (0.6-1.2) mg/dl Est Cr Clr Drug Dosing ml/min eGFR BUN/Creatinine Ratio (10-20) Glucose (70-99(Fasting)) mg/dl POC Glucose (70-99) mg/dl Lactate (0.4-2.0) mmol/L Calcium (8.6-10.3) mg/dl Phosphorus (2.5-4.9) mg/dl Magnesium (1.7-2.4) mg/dl Total Bilirubin (0.2-1.0) mg/dl Direct Bilirubin (0-0.2) mg/dl AST (13-39) U/L ALT (7-52) U/L Alkaline Phosphatase (34-104) U/L Troponin I High Sens 286.5 H* (0-14) pg/ml B-Natriuretic Peptide (0-100) pg/ml Total Protein (6.0-8.3) gm/dl Albumin (3.4-5.0) gm/dl Globulin (2.5-4.0) gm/dl Albumin/Globulin Ratio (0.9-2) Lipase (11-82) U/L CA 125 Antigen Procalcitonin (0-0.5) ng/ml TSH (0.300-4.500) uIu/ml Free T4 (0.61-1.60) ng/dl Urine Color Urine Appearance (Clear) Urine pH (4.5-7.5) Ur Specific [place] (1.000-1.030) Urine Protein (Negative) Urine Glucose (UA) (Negative) Urine Ketones (Negative) Urine Blood (Negative) Urine Nitrite (Negative) Urine Bilirubin (Negative) Urine Urobilinogen (Negative) Ur Leukocyte Esterase (Negative) Urine WBC (Auto) (0-5) /hpf Urine RBC (Auto) (0-2) /hpf U Hyaline Cast (Auto) (0-2) /lpf U Epithel Cells (Auto) (0-2) /hpf Urine Bacteria (Auto) (None Seen) Adenovirus (PCR) (NotDetected) B. pertussis DNA (PCR) (NotDetected) B.parapertussis DNA PCR (NotDetected) C. pneumoniae DNA (PCR) (NotDetected) Coronavirus OC43 (PCR) (NotDetected) Coronavirus HKU1 (PCR) (NotDetected) Coronavirus 229E (PCR) (NotDetected) SARS-CoV-2 (PCR) (NotDetected) Coronavirus NL63 (PCR) (NotDetected) Human Metapneumovir PCR (NotDetected) Influenza Type A (PCR) (NotDetected) Influenza Type B (PCR) (NotDetected) M. pneumoniae (PCR) (NotDetected) Parainfluenza 1 (PCR) (NotDetected) Parainfluenza 2 (PCR) (NotDetected) Parainfluenza 3 (PCR) (NotDetected) Parainfluenza 4 (PCR) (NotDetected) RSV (PCR) (NotDetected) Entero/Rhino (PCR) (NotDetected) Blood Type A Positive Blood Type Recheck A Positive Antibody Screen NEGATIVE Crossmatch See Detail 01/22/25 01/22/25 01/22/25 Range/Units 15:44 14:44 14:27 WBC 10.89 H (4.8-10.8) K/ul RBC 3.48 L (4.20-5.40) M/uL Hgb 9.8 L (12.0-16.0) g/dl Hct 29.8 L (37.0-47.0) % MCV 85.6 (80.0-100.0) fL MCH 28.2 (25.0-34.0) pg MCHC 32.9 (32.0-36.0) g/dL RDW Std Deviation 53.2 H (36.4-46.3) fL RDW Coeff of Sol 17.3 H (11.5-14.5) % Plt Count 219 (130-400) K/uL MPV 10.3 (9.4-12.4) fL Immature Gran % (Auto) 1.5 % Neut % (Auto) 96.7 % Lymph % (Auto) 1.2 % [place] % (Auto) 0.5 % Eos % (Auto) 0.0 % Baso % (Auto) 0.1 % Neut # (Auto) 10.54 H (1.40-6.50) K/uL Lymph # (Auto) 0.13 L (1.20-3.40) K/uL [place] # (Auto) 0.05 L (0.11-0.59) K/uL Eos # (Auto) 0.00 (0.00-0.50) K/uL Baso # (Auto) 0.01 (0.00-0.20) K/uL Immature Gran # (Auto) 0.16 (0.01-0.20) K/uL Absolute Nucleated RBC 0.02 (0.00-0.12) K/uL Nucleated RBC % (auto) 0.2 % Neutrophils % (Manual) % Lymphocytes % (Manual) % Monocytes % (Manual) % Eosinophils % (Manual) % Metamyelocytes % (Man) % Neutrophils # (Manual) (1.40-6.50) K/uL Total Absolute Neuts (1.4-6.5) K/uL Lymphocytes # (Manual) (1.2-3.4) K/uL Total Abs Lymphocytes (1.2-3.4) K/uL Monocytes # (Manual) (0.11-0.59) K/uL Eosinophils # (Manual) (0-0.50) K/uL Metamyelocytes # (Man) (0-0) K/uL Hyposegmented Neuts Toxic Granulation Toxic Vacuolation 1+ Polychromasia Target Cells PT (9.0-12.0) Seconds INR (0.9-1.1) APTT (21-31) Seconds PTT Ratio Fibrinogen (184-400) mg/dl Heparin Anti-Xa, Unfract > 1.50 H* (0.3-0.7) IU/ml Sodium 136 (136-145) mmol/L Potassium 3.9 (3.5-5.1) mmol/L Chloride 104 (98-107) mmol/L Carbon Dioxide 28 (21-32) mmol/L Anion Gap 4 (3-11) BUN 44 H (6-23) mg/dl Creatinine 1.13 (0.6-1.2) mg/dl Est Cr Clr Drug Dosing 46.1 ml/min eGFR 53.32 BUN/Creatinine Ratio 38.9 H (10-20) Glucose 119 H (70-99(Fasting)) mg/dl POC Glucose 143 H 134 H (70-99) mg/dl Lactate (0.4-2.0) mmol/L Calcium 7.4 L (8.6-10.3) mg/dl Phosphorus (2.5-4.9) mg/dl Magnesium 1.8 (1.7-2.4) mg/dl Total Bilirubin 1.5 H (0.2-1.0) mg/dl Direct Bilirubin 0.9 H (0-0.2) mg/dl AST 160 H (13-39) U/L ALT 98 H (7-52) U/L Alkaline Phosphatase 386 H (34-104) U/L Troponin I High Sens 322.4 H* D (0-14) pg/ml B-Natriuretic Peptide (0-100) pg/ml Total Protein 4.4 L (6.0-8.3) gm/dl Albumin 2.1 L (3.4-5.0) gm/dl Globulin (2.5-4.0) gm/dl Albumin/Globulin Ratio (0.9-2) Lipase (11-82) U/L CA 125 Antigen Procalcitonin (0-0.5) ng/ml TSH (0.300-4.500) uIu/ml Free T4 (0.61-1.60) ng/dl Urine Color Urine Appearance (Clear) Urine pH (4.5-7.5) Ur Specific [place] (1.000-1.030) Urine Protein (Negative) Urine Glucose (UA) (Negative) Urine Ketones (Negative) Urine Blood (Negative) Urine Nitrite (Negative) Urine Bilirubin (Negative) Urine Urobilinogen (Negative) Ur Leukocyte Esterase (Negative) Urine WBC (Auto) (0-5) /hpf Urine RBC (Auto) (0-2) /hpf U Hyaline Cast (Auto) (0-2) /lpf U Epithel Cells (Auto) (0-2) /hpf Urine Bacteria (Auto) (None Seen) Adenovirus (PCR) (NotDetected) B. pertussis DNA (PCR) (NotDetected) B.parapertussis DNA PCR (NotDetected) C. pneumoniae DNA (PCR) (NotDetected) Coronavirus OC43 (PCR) (NotDetected) Coronavirus HKU1 (PCR) (NotDetected) Coronavirus 229E (PCR) (NotDetected) SARS-CoV-2 (PCR) (NotDetected) Coronavirus NL63 (PCR) (NotDetected) Human Metapneumovir PCR (NotDetected) Influenza Type A (PCR) (NotDetected) Influenza Type B (PCR) (NotDetected) M. pneumoniae (PCR) (NotDetected) Parainfluenza 1 (PCR) (NotDetected) Parainfluenza 2 (PCR) (NotDetected) Parainfluenza 3 (PCR) (NotDetected) Parainfluenza 4 (PCR) (NotDetected) RSV (PCR) (NotDetected) Entero/Rhino (PCR) (NotDetected) Blood Type Blood Type Recheck Antibody Screen Crossmatch 01/22/25 01/22/25 01/22/25 Range/Units 09:08 04:54 00:00 WBC (4.8-10.8) K/ul RBC (4.20-5.40) M/uL Hgb (12.0-16.0) g/dl Hct (37.0-47.0) % MCV (80.0-100.0) fL MCH (25.0-34.0) pg MCHC (32.0-36.0) g/dL RDW Std Deviation (36.4-46.3) fL RDW Coeff of Sol (11.5-14.5) % Plt Count (130-400) K/uL MPV (9.4-12.4) fL Immature Gran % (Auto) % Neut % (Auto) % Lymph % (Auto) % [place] % (Auto) % Eos % (Auto) % Baso % (Auto) % Neut # (Auto) (1.40-6.50) K/uL Lymph # (Auto) (1.20-3.40) K/uL [place] # (Auto) (0.11-0.59) K/uL Eos # (Auto) (0.00-0.50) K/uL Baso # (Auto) (0.00-0.20) K/uL Immature Gran # (Auto) (0.01-0.20) K/uL Absolute Nucleated RBC (0.00-0.12) K/uL Nucleated RBC % (auto) % Neutrophils % (Manual) % Lymphocytes % (Manual) % Monocytes % (Manual) % Eosinophils % (Manual) % Metamyelocytes % (Man) % Neutrophils # (Manual) (1.40-6.50) K/uL Total Absolute Neuts (1.4-6.5) K/uL Lymphocytes # (Manual) (1.2-3.4) K/uL Total Abs Lymphocytes (1.2-3.4) K/uL Monocytes # (Manual) (0.11-0.59) K/uL Eosinophils # (Manual) (0-0.50) K/uL Metamyelocytes # (Man) (0-0) K/uL Hyposegmented Neuts Toxic Granulation Toxic Vacuolation Polychromasia Target Cells PT (9.0-12.0) Seconds INR (0.9-1.1) APTT (21-31) Seconds PTT Ratio Fibrinogen (184-400) mg/dl Heparin Anti-Xa, Unfract 0.35 (0.3-0.7) IU/ml Sodium (136-145) mmol/L Potassium (3.5-5.1) mmol/L Chloride (98-107) mmol/L Carbon Dioxide (21-32) mmol/L Anion Gap (3-11) BUN (6-23) mg/dl Creatinine (0.6-1.2) mg/dl Est Cr Clr Drug Dosing ml/min eGFR BUN/Creatinine Ratio (10-20) Glucose (70-99(Fasting)) mg/dl POC Glucose 97 (70-99) mg/dl Lactate 1.3 (0.4-2.0) mmol/L Calcium (8.6-10.3) mg/dl Phosphorus (2.5-4.9) mg/dl Magnesium (1.7-2.4) mg/dl Total Bilirubin (0.2-1.0) mg/dl Direct Bilirubin (0-0.2) mg/dl AST (13-39) U/L ALT (7-52) U/L Alkaline Phosphatase (34-104) U/L Troponin I High Sens (0-14) pg/ml B-Natriuretic Peptide (0-100) pg/ml Total Protein (6.0-8.3) gm/dl Albumin (3.4-5.0) gm/dl Globulin (2.5-4.0) gm/dl Albumin/Globulin Ratio (0.9-2) Lipase (11-82) U/L CA 125 Antigen Procalcitonin (0-0.5) ng/ml TSH (0.300-4.500) uIu/ml Free T4 (0.61-1.60) ng/dl Urine Color Urine Appearance (Clear) Urine pH (4.5-7.5) Ur Specific [place] (1.000-1.030) Urine Protein (Negative) Urine Glucose (UA) (Negative) Urine Ketones (Negative) Urine Blood (Negative) Urine Nitrite (Negative) Urine Bilirubin (Negative) Urine Urobilinogen (Negative) Ur Leukocyte Esterase (Negative) Urine WBC (Auto) (0-5) /hpf Urine RBC (Auto) (0-2) /hpf U Hyaline Cast (Auto) (0-2) /lpf U Epithel Cells (Auto) (0-2) /hpf Urine Bacteria (Auto) (None Seen) Adenovirus (PCR) (NotDetected) B. pertussis DNA (PCR) (NotDetected) B.parapertussis DNA PCR (NotDetected) C. pneumoniae DNA (PCR) (NotDetected) Coronavirus OC43 (PCR) (NotDetected) Coronavirus HKU1 (PCR) (NotDetected) Coronavirus 229E (PCR) (NotDetected) SARS-CoV-2 (PCR) (NotDetected) Coronavirus NL63 (PCR) (NotDetected) Human Metapneumovir PCR (NotDetected) Influenza Type A (PCR) (NotDetected) Influenza Type B (PCR) (NotDetected) M. pneumoniae (PCR) (NotDetected) Parainfluenza 1 (PCR) (NotDetected) Parainfluenza 2 (PCR) (NotDetected) Parainfluenza 3 (PCR) (NotDetected) Parainfluenza 4 (PCR) (NotDetected) RSV (PCR) (NotDetected) Entero/Rhino (PCR) (NotDetected) Blood Type Blood Type Recheck Antibody Screen Crossmatch 01/21/25 01/21/25 01/21/25 Range/Units 23:58 21:40 20:54 WBC (4.8-10.8) K/ul RBC (4.20-5.40) M/uL Hgb (12.0-16.0) g/dl Hct (37.0-47.0) % MCV (80.0-100.0) fL MCH (25.0-34.0) pg MCHC (32.0-36.0) g/dL RDW Std Deviation (36.4-46.3) fL RDW Coeff of Sol (11.5-14.5) % Plt Count (130-400) K/uL MPV (9.4-12.4) fL Immature Gran % (Auto) % Neut % (Auto) % Lymph % (Auto) % [place] % (Auto) % Eos % (Auto) % Baso % (Auto) % Neut # (Auto) (1.40-6.50) K/uL Lymph # (Auto) (1.20-3.40) K/uL [place] # (Auto) (0.11-0.59) K/uL Eos # (Auto) (0.00-0.50) K/uL Baso # (Auto) (0.00-0.20) K/uL Immature Gran # (Auto) (0.01-0.20) K/uL Absolute Nucleated RBC (0.00-0.12) K/uL Nucleated RBC % (auto) % Neutrophils % (Manual) % Lymphocytes % (Manual) % Monocytes % (Manual) % Eosinophils % (Manual) % Metamyelocytes % (Man) % Neutrophils # (Manual) (1.40-6.50) K/uL Total Absolute Neuts (1.4-6.5) K/uL Lymphocytes # (Manual) (1.2-3.4) K/uL Total Abs Lymphocytes (1.2-3.4) K/uL Monocytes # (Manual) (0.11-0.59) K/uL Eosinophils # (Manual) (0-0.50) K/uL Metamyelocytes # (Man) (0-0) K/uL Hyposegmented Neuts Toxic Granulation Toxic Vacuolation Polychromasia Target Cells PT (9.0-12.0) Seconds INR (0.9-1.1) APTT (21-31) Seconds PTT Ratio Fibrinogen (184-400) mg/dl Heparin Anti-Xa, Unfract (0.3-0.7) IU/ml Sodium (136-145) mmol/L Potassium (3.5-5.1) mmol/L Chloride (98-107) mmol/L Carbon Dioxide (21-32) mmol/L Anion Gap (3-11) BUN (6-23) mg/dl Creatinine (0.6-1.2) mg/dl Est Cr Clr Drug Dosing ml/min eGFR BUN/Creatinine Ratio (10-20) Glucose (70-99(Fasting)) mg/dl POC Glucose 119 H (70-99) mg/dl Lactate 2.1 H* (0.4-2.0) mmol/L Calcium (8.6-10.3) mg/dl Phosphorus (2.5-4.9) mg/dl Magnesium (1.7-2.4) mg/dl Total Bilirubin (0.2-1.0) mg/dl Direct Bilirubin (0-0.2) mg/dl AST (13-39) U/L ALT (7-52) U/L Alkaline Phosphatase (34-104) U/L Troponin I High Sens (0-14) pg/ml B-Natriuretic Peptide (0-100) pg/ml Total Protein (6.0-8.3) gm/dl Albumin (3.4-5.0) gm/dl Globulin (2.5-4.0) gm/dl Albumin/Globulin Ratio (0.9-2) Lipase (11-82) U/L CA 125 Antigen Procalcitonin (0-0.5) ng/ml TSH (0.300-4.500) uIu/ml Free T4 (0.61-1.60) ng/dl Urine Color Yellow Urine Appearance Clear (Clear) Urine pH 5.0 (4.5-7.5) Ur Specific [place] 1.025 (1.000-1.030) Urine Protein Negative (Negative) Urine Glucose (UA) Negative (Negative) Urine Ketones Negative (Negative) Urine Blood Trace H (Negative) Urine Nitrite Negative (Negative) Urine Bilirubin Negative (Negative) Urine Urobilinogen Negative (Negative) Ur Leukocyte Esterase Negative (Negative) Urine WBC (Auto) 0-5 (0-5) /hpf Urine RBC (Auto) 3-5 H (0-2) /hpf U Hyaline Cast (Auto) 0-2 (0-2) /lpf U Epithel Cells (Auto) 3-5 H (0-2) /hpf Urine Bacteria (Auto) None Seen (None Seen) Adenovirus (PCR) (NotDetected) B. pertussis DNA (PCR) (NotDetected) B.parapertussis DNA PCR (NotDetected) C. pneumoniae DNA (PCR) (NotDetected) Coronavirus OC43 (PCR) (NotDetected) Coronavirus HKU1 (PCR) (NotDetected) Coronavirus 229E (PCR) (NotDetected) SARS-CoV-2 (PCR) (NotDetected) Coronavirus NL63 (PCR) (NotDetected) Human Metapneumovir PCR (NotDetected) Influenza Type A (PCR) (NotDetected) Influenza Type B (PCR) (NotDetected) M. pneumoniae (PCR) (NotDetected) Parainfluenza 1 (PCR) (NotDetected) Parainfluenza 2 (PCR) (NotDetected) Parainfluenza 3 (PCR) (NotDetected) Parainfluenza 4 (PCR) (NotDetected) RSV (PCR) (NotDetected) Entero/Rhino (PCR) (NotDetected) Blood Type Blood Type Recheck Antibody Screen Crossmatch 01/21/25 01/21/25 01/21/25 Range/Units 20:19 19:11 19:00 WBC (4.8-10.8) K/ul RBC (4.20-5.40) M/uL Hgb (12.0-16.0) g/dl Hct (37.0-47.0) % MCV (80.0-100.0) fL MCH (25.0-34.0) pg MCHC (32.0-36.0) g/dL RDW Std Deviation (36.4-46.3) fL RDW Coeff of Sol (11.5-14.5) % Plt Count (130-400) K/uL MPV (9.4-12.4) fL Immature Gran % (Auto) % Neut % (Auto) % Lymph % (Auto) % [place] % (Auto) % Eos % (Auto) % Baso % (Auto) % Neut # (Auto) (1.40-6.50) K/uL Lymph # (Auto) (1.20-3.40) K/uL [place] # (Auto) (0.11-0.59) K/uL Eos # (Auto) (0.00-0.50) K/uL Baso # (Auto) (0.00-0.20) K/uL Immature Gran # (Auto) (0.01-0.20) K/uL Absolute Nucleated RBC (0.00-0.12) K/uL Nucleated RBC % (auto) % Neutrophils % (Manual) % Lymphocytes % (Manual) % Monocytes % (Manual) % Eosinophils % (Manual) % Metamyelocytes % (Man) % Neutrophils # (Manual) (1.40-6.50) K/uL Total Absolute Neuts (1.4-6.5) K/uL Lymphocytes # (Manual) (1.2-3.4) K/uL Total Abs Lymphocytes (1.2-3.4) K/uL Monocytes # (Manual) (0.11-0.59) K/uL Eosinophils # (Manual) (0-0.50) K/uL Metamyelocytes # (Man) (0-0) K/uL Hyposegmented Neuts Toxic Granulation Toxic Vacuolation Polychromasia Target Cells PT (9.0-12.0) Seconds INR (0.9-1.1) APTT (21-31) Seconds PTT Ratio Fibrinogen (184-400) mg/dl Heparin Anti-Xa, Unfract (0.3-0.7) IU/ml Sodium (136-145) mmol/L Potassium (3.5-5.1) mmol/L Chloride (98-107) mmol/L Carbon Dioxide (21-32) mmol/L Anion Gap (3-11) BUN (6-23) mg/dl Creatinine (0.6-1.2) mg/dl Est Cr Clr Drug Dosing ml/min eGFR BUN/Creatinine Ratio (10-20) Glucose (70-99(Fasting)) mg/dl POC Glucose 175 H 86 (70-99) mg/dl Lactate (0.4-2.0) mmol/L Calcium (8.6-10.3) mg/dl Phosphorus (2.5-4.9) mg/dl Magnesium (1.7-2.4) mg/dl Total Bilirubin (0.2-1.0) mg/dl Direct Bilirubin (0-0.2) mg/dl AST (13-39) U/L ALT (7-52) U/L Alkaline Phosphatase (34-104) U/L Troponin I High Sens 229.6 H* D (0-14) pg/ml B-Natriuretic Peptide (0-100) pg/ml Total Protein (6.0-8.3) gm/dl Albumin (3.4-5.0) gm/dl Globulin (2.5-4.0) gm/dl Albumin/Globulin Ratio (0.9-2) Lipase (11-82) U/L CA 125 Antigen Procalcitonin (0-0.5) ng/ml TSH (0.300-4.500) uIu/ml Free T4 (0.61-1.60) ng/dl Urine Color Urine Appearance (Clear) Urine pH (4.5-7.5) Ur Specific [place] (1.000-1.030) Urine Protein (Negative) Urine Glucose (UA) (Negative) Urine Ketones (Negative) Urine Blood (Negative) Urine Nitrite (Negative) Urine Bilirubin (Negative) Urine Urobilinogen (Negative) Ur Leukocyte Esterase (Negative) Urine WBC (Auto) (0-5) /hpf Urine RBC (Auto) (0-2) /hpf U Hyaline Cast (Auto) (0-2) /lpf U Epithel Cells (Auto) (0-2) /hpf Urine Bacteria (Auto) (None Seen) Adenovirus (PCR) (NotDetected) B. pertussis DNA (PCR) (NotDetected) B.parapertussis DNA PCR (NotDetected) C. pneumoniae DNA (PCR) (NotDetected) Coronavirus OC43 (PCR) (NotDetected) Coronavirus HKU1 (PCR) (NotDetected) Coronavirus 229E (PCR) (NotDetected) SARS-CoV-2 (PCR) (NotDetected) Coronavirus NL63 (PCR) (NotDetected) Human Metapneumovir PCR (NotDetected) Influenza Type A (PCR) (NotDetected) Influenza Type B (PCR) (NotDetected) M. pneumoniae (PCR) (NotDetected) Parainfluenza 1 (PCR) (NotDetected) Parainfluenza 2 (PCR) (NotDetected) Parainfluenza 3 (PCR) (NotDetected) Parainfluenza 4 (PCR) (NotDetected) RSV (PCR) (NotDetected) Entero/Rhino (PCR) (NotDetected) Blood Type Blood Type Recheck Antibody Screen Crossmatch 01/21/25 01/21/25 01/21/25 Range/Units 18:45 18:44 18:16 WBC (4.8-10.8) K/ul RBC (4.20-5.40) M/uL Hgb (12.0-16.0) g/dl Hct (37.0-47.0) % MCV (80.0-100.0) fL MCH (25.0-34.0) pg MCHC (32.0-36.0) g/dL RDW Std Deviation (36.4-46.3) fL RDW Coeff of Sol (11.5-14.5) % Plt Count (130-400) K/uL MPV (9.4-12.4) fL Immature Gran % (Auto) % Neut % (Auto) % Lymph % (Auto) % [place] % (Auto) % Eos % (Auto) % Baso % (Auto) % Neut # (Auto) (1.40-6.50) K/uL Lymph # (Auto) (1.20-3.40) K/uL [place] # (Auto) (0.11-0.59) K/uL Eos # (Auto) (0.00-0.50) K/uL Baso # (Auto) (0.00-0.20) K/uL Immature Gran # (Auto) (0.01-0.20) K/uL Absolute Nucleated RBC (0.00-0.12) K/uL Nucleated RBC % (auto) % Neutrophils % (Manual) % Lymphocytes % (Manual) % Monocytes % (Manual) % Eosinophils % (Manual) % Metamyelocytes % (Man) % Neutrophils # (Manual) (1.40-6.50) K/uL Total Absolute Neuts (1.4-6.5) K/uL Lymphocytes # (Manual) (1.2-3.4) K/uL Total Abs Lymphocytes (1.2-3.4) K/uL Monocytes # (Manual) (0.11-0.59) K/uL Eosinophils # (Manual) (0-0.50) K/uL Metamyelocytes # (Man) (0-0) K/uL Hyposegmented Neuts Toxic Granulation Toxic Vacuolation Polychromasia Target Cells PT (9.0-12.0) Seconds INR (0.9-1.1) APTT (21-31) Seconds PTT Ratio Fibrinogen (184-400) mg/dl Heparin Anti-Xa, Unfract (0.3-0.7) IU/ml Sodium (136-145) mmol/L Potassium (3.5-5.1) mmol/L Chloride (98-107) mmol/L Carbon Dioxide (21-32) mmol/L Anion Gap (3-11) BUN (6-23) mg/dl Creatinine (0.6-1.2) mg/dl Est Cr Clr Drug Dosing ml/min eGFR BUN/Creatinine Ratio (10-20) Glucose (70-99(Fasting)) mg/dl POC Glucose 66 L* 65 L* 61 L* (70-99) mg/dl Lactate (0.4-2.0) mmol/L Calcium (8.6-10.3) mg/dl Phosphorus (2.5-4.9) mg/dl Magnesium (1.7-2.4) mg/dl Total Bilirubin (0.2-1.0) mg/dl Direct Bilirubin (0-0.2) mg/dl AST (13-39) U/L ALT (7-52) U/L Alkaline Phosphatase (34-104) U/L Troponin I High Sens (0-14) pg/ml B-Natriuretic Peptide (0-100) pg/ml Total Protein (6.0-8.3) gm/dl Albumin (3.4-5.0) gm/dl Globulin (2.5-4.0) gm/dl Albumin/Globulin Ratio (0.9-2) Lipase (11-82) U/L CA 125 Antigen Procalcitonin (0-0.5) ng/ml TSH (0.300-4.500) uIu/ml Free T4 (0.61-1.60) ng/dl Urine Color Urine Appearance (Clear) Urine pH (4.5-7.5) Ur Specific [place] (1.000-1.030) Urine Protein (Negative) Urine Glucose (UA) (Negative) Urine Ketones (Negative) Urine Blood (Negative) Urine Nitrite (Negative) Urine Bilirubin (Negative) Urine Urobilinogen (Negative) Ur Leukocyte Esterase (Negative) Urine WBC (Auto) (0-5) /hpf Urine RBC (Auto) (0-2) /hpf U Hyaline Cast (Auto) (0-2) /lpf U Epithel Cells (Auto) (0-2) /hpf Urine Bacteria (Auto) (None Seen) Adenovirus (PCR) (NotDetected) B. pertussis DNA (PCR) (NotDetected) B.parapertussis DNA PCR (NotDetected) C. pneumoniae DNA (PCR) (NotDetected) Coronavirus OC43 (PCR) (NotDetected) Coronavirus HKU1 (PCR) (NotDetected) Coronavirus 229E (PCR) (NotDetected) SARS-CoV-2 (PCR) (NotDetected) Coronavirus NL63 (PCR) (NotDetected) Human Metapneumovir PCR (NotDetected) Influenza Type A (PCR) (NotDetected) Influenza Type B (PCR) (NotDetected) M. pneumoniae (PCR) (NotDetected) Parainfluenza 1 (PCR) (NotDetected) Parainfluenza 2 (PCR) (NotDetected) Parainfluenza 3 (PCR) (NotDetected) Parainfluenza 4 (PCR) (NotDetected) RSV (PCR) (NotDetected) Entero/Rhino (PCR) (NotDetected) Blood Type Blood Type Recheck Antibody Screen Crossmatch 01/21/25 01/21/25 Range/Units 15:00 14:00 WBC 11.17 H (4.8-10.8) K/ul RBC 4.48 (4.20-5.40) M/uL Hgb 12.3 (12.0-16.0) g/dl Hct 38.7 (37.0-47.0) % MCV 86.4 (80.0-100.0) fL MCH 27.5 (25.0-34.0) pg MCHC 31.8 L (32.0-36.0) g/dL RDW Std Deviation 54.9 H (36.4-46.3) fL RDW Coeff of Sol 17.4 H (11.5-14.5) % Plt Count 310 (130-400) K/uL MPV 10.0 (9.4-12.4) fL Immature Gran % (Auto) 0.4 % Neut % (Auto) 94.8 % Lymph % (Auto) 3.9 % [place] % (Auto) 0.7 % Eos % (Auto) 0.2 % Baso % (Auto) 0.0 % Neut # (Auto) 10.58 H (1.40-6.50) K/uL Lymph # (Auto) 0.44 L (1.20-3.40) K/uL [place] # (Auto) 0.08 L (0.11-0.59) K/uL Eos # (Auto) 0.02 (0.00-0.50) K/uL Baso # (Auto) 0.00 (0.00-0.20) K/uL Immature Gran # (Auto) 0.05 (0.01-0.20) K/uL Absolute Nucleated RBC 0.02 (0.00-0.12) K/uL Nucleated RBC % (auto) 0.2 % Neutrophils % (Manual) % Lymphocytes % (Manual) % Monocytes % (Manual) % Eosinophils % (Manual) % Metamyelocytes % (Man) % Neutrophils # (Manual) (1.40-6.50) K/uL Total Absolute Neuts (1.4-6.5) K/uL Lymphocytes # (Manual) (1.2-3.4) K/uL Total Abs Lymphocytes (1.2-3.4) K/uL Monocytes # (Manual) (0.11-0.59) K/uL Eosinophils # (Manual) (0-0.50) K/uL Metamyelocytes # (Man) (0-0) K/uL Hyposegmented Neuts Toxic Granulation Toxic Vacuolation 1+ Polychromasia Target Cells 1+ PT 14.6 H (9.0-12.0) Seconds INR 1.4 H (0.9-1.1) APTT 31 (21-31) Seconds PTT Ratio 1.2 Fibrinogen (184-400) mg/dl Heparin Anti-Xa, Unfract (0.3-0.7) IU/ml Sodium 137 (136-145) mmol/L Potassium 3.8 (3.5-5.1) mmol/L Chloride 102 (98-107) mmol/L Carbon Dioxide 34 H (21-32) mmol/L Anion Gap 1 L (3-11) BUN 49 H (6-23) mg/dl Creatinine 1.07 (0.6-1.2) mg/dl Est Cr Clr Drug Dosing 47.5 ml/min eGFR 56.93 BUN/Creatinine Ratio 45.8 H (10-20) Glucose 87 (70-99(Fasting)) mg/dl POC Glucose (70-99) mg/dl Lactate (0.4-2.0) mmol/L Calcium 8.3 L (8.6-10.3) mg/dl Phosphorus 3.1 (2.5-4.9) mg/dl Magnesium 2.1 (1.7-2.4) mg/dl Total Bilirubin 1.0 (0.2-1.0) mg/dl Direct Bilirubin (0-0.2) mg/dl AST 245 H (13-39) U/L ALT 145 H (7-52) U/L Alkaline Phosphatase 339 H (34-104) U/L Troponin I High Sens 174.8 H* (0-14) pg/ml B-Natriuretic Peptide 243 H (0-100) pg/ml Total Protein 5.3 L (6.0-8.3) gm/dl Albumin 2.6 L (3.4-5.0) gm/dl Globulin 2.7 (2.5-4.0) gm/dl Albumin/Globulin Ratio 1.0 (0.9-2) Lipase 11 (11-82) U/L CA 125 Antigen Procalcitonin 0.61 H (0-0.5) ng/ml TSH 4.667 H (0.300-4.500) uIu/ml Free T4 1.05 (0.61-1.60) ng/dl Urine Color Urine Appearance (Clear) Urine pH (4.5-7.5) Ur Specific [place] (1.000-1.030) Urine Protein (Negative) Urine Glucose (UA) (Negative) Urine Ketones (Negative) Urine Blood (Negative) Urine Nitrite (Negative) Urine Bilirubin (Negative) Urine Urobilinogen (Negative) Ur Leukocyte Esterase (Negative) Urine WBC (Auto) (0-5) /hpf Urine RBC (Auto) (0-2) /hpf U Hyaline Cast (Auto) (0-2) /lpf U Epithel Cells (Auto) (0-2) /hpf Urine Bacteria (Auto) (None Seen) Adenovirus (PCR) Not Detected (NotDetected) B. pertussis DNA (PCR) Not Detected (NotDetected) B.parapertussis DNA PCR Not Detected (NotDetected) C. pneumoniae DNA (PCR) Not Detected (NotDetected) Coronavirus OC43 (PCR) Not Detected (NotDetected) Coronavirus HKU1 (PCR) Not Detected (NotDetected) Coronavirus 229E (PCR) Not Detected (NotDetected) SARS-CoV-2 (PCR) Not Detected (NotDetected) Coronavirus NL63 (PCR) Not Detected (NotDetected) Human Metapneumovir PCR Not Detected (NotDetected) Influenza Type A (PCR) Not Detected (NotDetected) Influenza Type B (PCR) Not Detected (NotDetected) M. pneumoniae (PCR) Not Detected (NotDetected) Parainfluenza 1 (PCR) Not Detected (NotDetected) Parainfluenza 2 (PCR) Not Detected (NotDetected) Parainfluenza 3 (PCR) Not Detected (NotDetected) Parainfluenza 4 (PCR) Not Detected (NotDetected) RSV (PCR) Not Detected (NotDetected) Entero/Rhino (PCR) Not Detected (NotDetected) Blood Type Blood Type Recheck Antibody Screen Crossmatch Diagnostic Findings Aorta w/Runoff CTA 01/21/25 16:18 EXAM: CT ang AA runof w inc wo ifdon CLINICAL HISTORY: OvCA perit carcinomatosis, Absent R pedal pulses. TECHNIQUE: CT Angiography of abdominal aorta, bilateral iliac and femoropopliteal arterial trees with IV contrast administration. 119ml Optiray 320 One of these 3D techniques was utilized: Maximum Intensity Pixel (MIP), 3D Reconstructed Images, Volume Rendered Images, Surface Shaded Rendering. One of the following dose reduction techniques was utilized for this exam: Automated exposure control, adjustment of the mA and/or kV according to patient size, and use of iterative reconstruction. COMPARISON: [place] to prior CT 01/02/2025 FINDINGS: Diffuse increase in intimal medial thickness of all examined arteries with no significant stenosis except at the right common iliac artery reaching 75 %. Aorta: The abdominal aorta is normal in caliber. No evidence of aneurysm, dissection, or significant atherosclerotic changes. Aortic bifurcation is unremarkable. Renal Arteries: Renal arteries are normal in size and opacification. No evidence of stenosis or occlusion. Symmetric perfusion of both kidneys. Mesenteric Arteries: Superior mesenteric artery (SMA) and inferior mesenteric artery (RAJNI) are normal in caliber and opacification. No evidence of stenosis or occlusion. Celiac Artery: Celiac artery is normal in caliber and opacification. No evidence of stenosis or occlusion. Iliac Arteries: Common, internal, and external iliac arteries are normal in caliber and opacification. No evidence of stenosis, aneurysm, or occlusion. 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 Femoral Arteries: Common femoral arteries are normal in caliber and opacification. No evidence of stenosis or occlusion. Superficial and deep femoral arteries are normal in appearance. Popliteal Arteries: Popliteal arteries are normal in caliber and opacification. No evidence of stenosis or occlusion. Tibial Arteries: Anterior tibial, posterior tibial, and peroneal arteries are normal in caliber and opacification. No evidence of stenosis or occlusion. Venous Structures: Inferior vena cava (IVC) and major venous structures are normal in caliber and opacification. No evidence of thrombus or obstruction. Liver: Normal size and morphology. Homogeneous enhancement post-contrast. No focal hepatic lesions. Gallbladder and Biliary System: Chlecywtetcomy clips. Dilated intrahepatic and extrahepatic biliary channels. reach CBD 12 mm. Pancreas: Normal size and contour. Homogeneous enhancement post-contrast. No masses or cystic lesions. Spleen: Normal size and appearance. Homogeneous enhancement post-contrast. Adrenal Glands: Normal size and morphology bilaterally. No adrenal masses. Kidneys and Ureters: Normal size, shape, and position of both kidneys. Homogeneous enhancement post-contrast. No renal stones, masses, or hydronephrosis. Ureters are unremarkable. Bladder: Normal in size and wall thickness. No intraluminal masses. Bilateral complex adenxal cystic masses. Normal enhancement post-contrast. Bowel: Normal appearance of the visualized bowel loops. No evidence of obstruction, wall thickening, or abnormal dilatation. Lymph Nodes: No pathologically enlarged lymph nodes in the abdomen or pelvis. Peritoneum: Marked amount of free fluid in abdomen and pelvis with multiple nodules and enhancing omental deposits, largest anterior to the spleen measuring about 10x5.5 cm. Bones: No lytic or sclerotic lesions. Normal alignment and bone density. Soft Tissues: Normal appearance of the visualized soft tissues. IMPRESSION: 1. 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 2. 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 with marked ascites, and enhancing omental deposits, largest anterior to the spleen measuring about 10x5.5 cm., suggest clinical assessment, and tumor markers (unchanged) 3. Dilated intrahepatic and extrahepatic biliary channels. reach CBD 12 mm. Suggest MRCP and clinical assessment (new) Electronically signed by Nohemy Leahy 01-21-2025 8:08 PM Chest CTA 01/21/25 16:18 EXAM: CT angio chest PE protocol CLINICAL HISTORY: SOB, OvCA peritoneal carcinomatosis, r/o PE TECHNIQUE: CT angiography of the chest was performed with the administration of intravenous contrast with the following protocol: axial images with, reconstructed coronal and sagittal images. The contrast-enhanced images were acquired in arterial and venous phases. Intravenous contrast was administered using automated injection techniques. Bolus tracking was employed to optimize arterial phase imaging. One of these 3D techniques was utilized: Maximum Intensity Pixel (MIP), 3D Reconstructed Images, Volume Rendered Images, Surface Shaded Rendering. One of the following dose reduction techniques was utilized for this exam: Automated exposure control, adjustment of the mA and/or kV according to patient size, and use of iterative reconstruction. (CTDI: 23.75 mGy, DLP: 2661.55 mGy*cm) COMPARISON: Comparison is made with 01/02/2025. FINDINGS: Aorta and Great Vessels: Ascending Aorta: Normal in caliber, no aneurysm, dissection, or significant atherosclerosis. Aortic Arch: Normal in caliber, no aneurysm, dissection, or significant atherosclerosis. Descending Aorta: Normal in caliber, no aneurysm, dissection, or significant atherosclerosis. Pulmonary Arteries: The main pulmonary artery and its branches are patent. No evidence of pulmonary embolism or significant stenosis. Heart: Cardiac Chambers: increase cardiac size. Pericardium: No pericardial effusion or thickening. Lungs and Pleura: Bilateral basal consolidations Bilateral moderate pleural effusion with passive atelectasis. Slight compressed lower trachea and bronchi with patent lumen. Mediastinum: No mediastinal mass or abnormal lymphadenopathy. Normal appearance of the trachea and central bronchi. Hilar Structures: Hilar structures are normal without enlargement. Chest Wall: No mass lesions or abnormalities in the chest wall. Vascular Structures: Superior Vena Cava: Patent without evidence of stenosis or thrombus. Inferior Vena Cava: Patent without evidence of stenosis or thrombus. Bones and Soft Tissues: No fractures, lytic, or blastic lesions of the visualized bony structures. Thoracic spondylosis. Soft tissues are unremarkable. IMPRESSION: 1. No pulmonary embolism at the time of the scan. (unchanged) 2. Bilateral moderate pleural effusion with compression collapse of both posterior segments of both lower lobes. (unchanged) 3. Slight compressed lower trachea and bronchi with patent lumen. (unchanged) suggests clinical assessment. 4. Cardiomegaly. (unchanged) Electronically signed by Nohemy Leahy 01-21-2025 7:47 PM Duplex Scan Lower Extremity Artery 01/21/25 18:09 Exam(s): US ARTERIAL RIGHT LOWER EXTREMITY EXAM: US Duplex Right Lower Extremity Arteries CLINICAL HISTORY: Absent right pedal pulses. TECHNIQUE: Real-time duplex ultrasound scan of the right lower extremity arteries integrating B-mode two-dimensional vascular structure, Doppler spectral analysis and color flow Doppler imaging. COMPARISON: No relevant prior studies available. 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 There is multiphasic wave forms of the peak systolic velocity of 72 cm/s. Right superficial femoral artery: The superficial femoral artery is patent with atherosclerotic disease and multiphasic waveforms, with the peak systolic velocities measuring 104 cm/s proximally, 107 cm at the mid segment and 77 cm/s distally. Right popliteal artery: The right popliteal artery demonstrates monophasic waveforms with a peak systolic velocity of between 30-40 cm/s. Right calf/foot arteries: The right posterior tibial artery is not well delineated. No arterial flow noted in this region. The peroneal artery is not clearly delineated. The proximal right anterior tibial artery is patent with monophasic waveforms and peak systolic velocity of 24 cm/s. The mid to distal anterior tibial artery are not clearly delineated and may be occluded. The dorsalis pedis artery is not definitively delineated sonographically. Other arteries: The proximal right profunda femoral artery is patent with biphasic waveforms in the peak systolic velocity of 64 cm/s. Soft tissues: Subcutaneous edema noted at the calf. IMPRESSION: 1. The proximal right anterior tibial artery is patent with monophasic waveforms and peak systolic velocity of 24 cm/s. The mid to distal anterior tibial artery are not clearly delineated and may be occluded. The peroneal and posterior tibial arteries are not identified. The dorsalis pedis artery is not clearly delineated and may be occluded. Recommend further evaluation with CTA or conventional angiography, as clinically indicated. 2. Atherosclerotic disease from the common femoral through the superficial femoral arteries. No elevated velocities to suggest a focal hemodynamic stenosis. The popliteal artery demonstrates monophasic waveforms, but is patent. Electronically signed by: Pato Aldana MD 01/21/25 21:20 PM Venous Doppler Study 01/21/25 18:09 Exam(s): US VENOUS BILATERAL LOWER EXTREMITIES EXAM: US Duplex Bilateral Lower Extremities Veins CLINICAL HISTORY: BLE edema. TECHNIQUE: Real-time duplex ultrasound scan of the bilateral lower extremity veins integrating B-mode two-dimensional vascular structure, Doppler spectral analysis, color flow Doppler imaging and compression. COMPARISON: No relevant prior studies available. FINDINGS: Limitations: Evaluation is reportedly limited by underlying edema. Right deep veins: Unremarkable. No DVT in the right common femoral, femoral, proximal deep femoral or popliteal veins. The veins demonstrate normal color flow, are normally compressible, with normal phasic flow and/or augmentation response. The interrogated calf veins are patent. Right superficial veins: Unremarkable. No thrombus in the saphenofemoral junction. Left deep veins: Unremarkable. No DVT in the left common femoral, femoral, proximal deep femoral or popliteal veins. The veins demonstrate normal color flow, are normally compressible, with normal phasic flow and/or augmentation response. The interrogated calf veins are patent. Left superficial veins: Unremarkable. No thrombus in the saphenofemoral junction. Soft tissues: Diffuse subcutaneous fat stranding noted, most prominent from the knees distally. No loculated fluid collection. No popliteal cyst. IMPRESSION: 1. No evidence for deep vein thrombosis involving the bilateral lower extremities. 2. Bilateral subcutaneous edema. Electronically signed by: Pato Aldana MD 01/21/25 21:16 PM Chest X-Ray 01/23/25 14:55 XR chest 1V portable CLINICAL HISTORY: Post Pleurx placement COMPARISON STUDY: 01/21/2025 FINDINGS: There is stable mild cardiomegaly without pulmonary vascular congestion. There is an interval right pleural catheter at the right base. There is interval resolution of the prior right lung base opacity. No pneumothorax. There is stable hazy opacity at the left base consistent with consolidation and pleural effusion. IMPRESSION: No pneumothorax. ACT 112: Negative or not required by law. Electronically signed by: Oneil Kirby M.D. 01/23/2025 3:24 PM PG Care Time/CCT Total # of Minutes Spent Total Time Spent with Patient: Total time spent is greater than 50% in coordination of care (as documented) at patient's floor/unit and/or counseling patient: I spent 100 minutes overall addressing this case: 10 min in medical data review/discussion with referring provider(s) and/or preparation for the visit 15 min in direct interaction with the patient/exam 50 min in Advance Care Planning/Goals of Care discussions as detailed above in note (must be >16min) 10 min in subsequent review and synthesis of assessment and plan 15 min communicating with other providers regarding the patient's case: CCM, pulm, nursing, care mgt Advanced Care Planning 85419 Advanced Care Planning 30 Min 74446 Advanced Care Planning Additional 30 Min [place] [address] SUB INP/OBS CARE 3/50MIN (25 - SIGNIFICANT, SEPARATELY IDENTIFIABLE ) Patient Type Established Medical Decision Making High Complexity Diagnoses Dyspnea and respiratory abnormalities R06.00; R06.89 Cough R05.9 Cancer related pain G89.3 Advanced care planning/counseling discussion Z71.89 Palliative care by specialist Z51.5 Ischemic foot I99.8 Primary cancer of ovary with widespread metastatic disease C56.9; C80.0 Laterality: unspecified laterality Additional Codes Advanced Care Planning - 07959 Advanced Care Planning 30 Min: [id number] Advanced Care Planning 30 Min ([id number]) Advanced Care Planning - 02091 Advanced Care Planning Additional 30 Min: [id number] Advanced Care Planning Additional 30 Min ([id number]) Comment [id number], [id number] (7) Primary cancer of ovary with widespread metastatic disease Laterality: unspecified laterality Qualified Code(s): C56.9 - Malignant neoplasm of unspecified ovary; C80.0 - Disseminated malignant neoplasm, unspecified
--- NOTE | 2025-01-24 13:47 | Surgery Progress Note ---
Date of Service January 24, 2025 Assessment & Plan (1) S/P vascular surgery: Plan: She denies pain in her right foot. Will hold off on any amputation at this point. WBC extremely low. Amputation would need to be an AKA and would be a very high risk for infection and non healing. If she elects to go comfort care would hold off on amputation as long as possible if at all. Admission and Anticipated Discharge Date Admission Date: January 22, 2025 Subjective Patient awake but has some forgetfulness. She denies pain in her foot at this t lon. Physical Exam Constitutional: WD/WN, vitals as above Respiratory: normal respiratory effort; no respiratory distress Cardiovascular: Rate/Rhythm: regular rate and regular rhythm Vessels: femoral pulses present; + posterior tibial pulses abnormal (on right) and + dorsalis pedis pulses abnormal (on right) Extremities: + abnormal capillary refill (absent in right foot) Skin: + wound (vac in place), + mottling (righ t foot) and + pallor (right foot) Neurologic: CN's II-XI intact bilaterally; + abnormal sensation to monofilament (right foot) and + does not move all extremities (does not move right foot) Psychiatric: Orientation: alert Eye Contact: good eye contact Cognition: + recent memory not intact Results & Data Vital Signs (Past 12 Hours) Vital Signs Temp Pulse Resp BP Pulse Ox O2 Del Method O2 Flow Rate 01/24/25 08:41 87 01/24/25 08:06 91 H 18 97 Room Air 01/24/25 08:01 136/83 01/24/25 08:00 Nasal Cannula 2 01/24/25 08:00 36.9 C 01/24/25 04:00 91 H 20 95 Nasal Cannula 2 01/24/25 04:00 103/70
--- NOTE | 2025-01-24 14:16 | Hospitalist Progress Note ---
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 #Hemorrhagic shock/Vascular occlusion: -Presented with pain, pallor and poikilothermia of RLE into foot. Possible vascular occlusion noted on imaging involving mid to distal anterior tibial artery, peroneal and posterior tibia arteries, dorsalis pedis arteries. Over read by vascular surgery of CTA aorta with runoff-with complete R iliac occlusion and infrapop occlusions with minimal runoff to foot. Clinically, foot is ischemic. She was started on a heparin drip and went urgently with vascular surgery on 01/22 for angiography and thrombectomy. An old clot was removed from the right iliac with restored blood flow and some clot was removed from the right leg, however no flow was able to be restored to the right foot. It seemed this had likely been going on for longer than initially thought. Developed bleeding from right groin site through wound VAC placed due to excessive serous drainage on closure. 300 mL EBL during surgery and another 500 mL EBL in the wound vacuum postoperatively. Had brief hypotension which responded to IV fluid bolus and was transfused 1 unit PRBCs on 01/22 Never needed vasopressors and is now stabilized-downgraded out of ICU on 01/23 Blood pressures remain normal but hemoglobin slowly dropping again to 7.3 from wound vacuum and on heparin drip. Hemoglobin also dropping from recent chemotherapy -Continue heparin drip and follow anti-Xa levels -Follow CBC and transfuse if has active bleeding and hemoglobin less than 7-8 -Continue pain control with Tylenol, and change morphine to IV Dilaudid as morphine ineffective -Vascular Surgery Consultation appreciated-will likely need an AKA of the RLE early next week unless decides to move towards comfort measures only/hospice -Continue empiric Zosyn to prevent infection of the ischemic leg #Elevated LFTs: Total bilirubin, AST, ALT, and alkaline phosphatase all elevated but continue to be trending downward. Most likely side effect of recent chemotherapy. Liver with dilated intra and extrahepatic ducts on CT, history of cholecystectomy. Could get MRCP but unstable at this time to do so. No evidence of cirrhosis. INR is elevated here and during last admission and improved with vitamin K supplementation and is likely from nutritional deficiencies. -Continue to follow LFTs -Consider MRCP if stabilizes #Metastatic ovarian cancer with carcinomatosis and malignant pleural effusion/malignant ascites/antineoplastic induced pancytopenia and acute blood loss anemia-Patient with diffusely metastatic ovarian cancer with pleural effusions and ascites. Recently started on Chemotherapy-completed 1 cycle and had plan for debulking surgery after first 3 cycles of chemotherapy. With impending leg amputation, chemotherapy would have to be delayed. Appreciate palliative medicine consultation. Appreciate hematology/oncology recommendations -Check [id number] trending downward, patient and her sister are more amenable to undergoing amputation with the hopes to resume chemotherapy in the future -Plan for IR paracentesis due to significant ascites and abdominal distention when more stable-does not need for now -Pleurx catheter placement per pulmonology on 01/23-this has improved her dyspnea -Continue to follow blood counts which are now dropping from chemotherapy-she is now neutropenic-give Neupogen 480 mcg SQ daily x 3 days -Transfuse for hemoglobin less than 7. Hold heparin drip if platelets less than 50K and continuing to have blood from the wound vacuum -Follow CBC, CMP -Palliative medicine following-patient and her sister are considering moving towards comfort measures only rather than leg amputation #Hypoxia/malignant pleural effusion/COPD: Secondary to pleural effusions, not having COPD exacerbation, no need for prednisone or IV Lasix-Pleurx catheter placement on 01/23 on the right, may need Pleurx catheter on the left -Wean off supplemental O2 as able to to keep pulse ox greater than 90% #Hyponatremia-sodium has dropped to 130-could be from volume overload but avoid ing diuretics as this is likely due to malignancy and she has severe malnutrition and hypoalbuminemia, would likely create worsening renal function. -Follow BMP #Hypothyroidism: Chronic. Stable. TSH elevated with normal T4. -Continue Synthroid #DM2-Chronic hemoglobin A1c 7.5% in 10/2024 -Continue Lantus and NovoLog and adjust as needed #Anxiety/Depression-anxiety exacerbated by current significant medical issues -Continue Fluoxetine, clonazepam as needed #Elevated troponin/myocardial demand ischemia-Patient denies chest pain. Troponin is elevated at 229.6 and peaked at 300. No ischemic changes on EKG -Telemetry monitoring DVT prophylaxis-heparin drip Disposition-continued stay on PCU. Condition is guarded. Will call sister again with update on 01/24. Appreciate palliative medicine consultation. If patient declines over the weekend, would plan to transition to comfort measures only as per palliative discussion with patient and her sister. Otherwise, still considering amputation next week. Her sister is going to try to come up from [place] on 01/25 Admission and Anticipated Discharge Date Admission Date: January 22, 2025 Subjective Patient was having pain in the right leg and received morphine which was not helping. I then ordered Dilaudid which is now helped. She asks "tell me the truth, am I going to ?" We discussed her current condition and prognosis. Reports her breathing is better since Pleurx catheter placed. She reports feeling extremely weak Telemetry with sinus rhythm and sinus tachycardia Physical Exam Constitutional: + ill appearing; no acute distress Respiratory: normal respiratory effort Auscultation: + diminished lung sounds (At bases bilaterally); no crackles, no rhonchi and no wheezes Cardiovascular: Rate/Rhythm: regular rate and regular rhythm Heart Sounds: no murmur Vessels: + dorsalis pedis pulses abnormal (Not on right) Extremities: + edema (3+ edema of the lower extremities to the thighs bilaterally) Gastrointestinal (Abdomen): Inspection/Auscultation: + abdomen distended and normal bowel sounds Percussion/Palpation: abdomen nontender Skin: Right distal leg and foot white with purple mottling, cool to the touch Right groin with wound VAC in place Psychiatric: Orientation: alert, oriented to person, oriented to place and cooperative Results & Data Results & Data Vital Signs (Past 12 Hours) Vital Signs Temp Pulse Resp BP Pulse Ox O2 Del Method O2 Flow Rate 01/24/25 13:56 36.8 C 01/24/25 12:06 86 17 119/67 96 01/24/25 08:41 87 01/24/25 08:06 91 H 18 97 Room Air 01/24/25 08:01 136/83 01/24/25 08:00 Nasal Cannula 2 01/24/25 08:00 36.9 C 01/24/25 04:00 91 H 20 95 Nasal Cannula 2 01/24/25 04:00 103/70 Laboratory Results CBC, BMP, LFTs, magnesium reviewed PG Care Time/CCT Total # of Minutes Spent Total Time Spent with Patient: Total time spent is greater than 50% in coordination of care (as documented) at patient's floor/unit and/or counseling patient: Coding Level of Care Code 19050 SUB INP/OBS CARE 3/50MIN Diagnoses Vascular occlusion I99.8 Hemorrhagic shock R57.8 Elevated LFTs R79.89 Pleural effusion J90
[2025-01-24 17:48] LABS: ANTI-Xa, UFH(UnfractionatedHep 0.28 IU/ml (0.3-0.7)
[2025-01-24 17:58] LABS: Hematocrit (blood only) 22.7 % (37.0-47.0); Hemoglobin 7.4 g/dl (12.0-16.0); Mean Corpuscular Hemoglobin 27.6 pg (25.0-34.0); Mean Corpuscular Hgb Conc 32.6 g/dL (32.0-36.0); Mean Corpuscular Volume 84.7 fL (80.0-100.0); Mean Platelet Volume 12.3 fL (9.4-12.4); Platelet Count 91 K/uL (130-400); RDW Coefficient of Variation 16.2 % (11.5-14.5); RDW Standard Deviation 49.7 fL (36.4-46.3); Red Blood Count 2.68 M/uL (4.20-5.40)
[2025-01-24] MEDS: HYDROmorphone INJ 0.5 MG/0.5 ML SYR IV PRN (20:19)
[2025-01-25 01:26] LABS: ANTI-Xa, UFH(UnfractionatedHep 0.28 IU/ml (0.3-0.7)
[2025-01-25] MEDS: LOPERAMIDE HCL 2 MG CAP PO STA (03:29)
--- NOTE | 2025-01-25 06:01 | Palliative Care Progress Note ---
Date of Service January 25, 2025 Assessment & Plan (1) Dyspnea and respiratory abnormalities: (2) Cough: (3) Cancer related pain: (4) Palliative care by specialist: Plan: Extensive psychosocial support provided. For Oncology Patients: Patient's Palliative Prognostic Score (PaP) Score = 13.5 points (Interpretation:30-day survival probability <30%) Patient's Palliative Prognostic Index (PPI) Score = 9.5 points --> Note:If the PPI is greater than 6.0, survival is less than three weeks (Sensitivity - 80%; Specificity - 85%). (5) Ischemic foot: (6) Primary cancer of ovary with widespread metastatic disease: Plan Continues to decline - this is c/w Palliative prognostics which support anticipated mortality of weeks For acute decline/worsening, please transition to [facility]NICIAN as per [facility] discussions 01/24/25 Sister is en route from [place], ETA hopefully tonight or tomorrow Thank you for allowing us to participate in the ongoing care of this patient. Please page with any additional concerns. Sandi Kim DNP Director, Palliative Medicine Admission and Anticipated Discharge Date Admission Date: January 22, 2025 Subjective Lyn is lying in bed drowsy mod confused at times weaker than yesterday pale with cool extremities CA 125 is 1921 from 01/23/25 and was 2602 prior. cell counts dropping code changed to DNR/DNI yesterday, sister updated and will be arriving to [facility] likely this evening Review of Systems Review of Systems: All systems reviewed & are unremarkable except as noted in Subjective Physical Exam Physical Exam: Elderly female, appears older than stated age, acutely ill, supine in bed. +fatigued, she is more frail appearing t parviz than yesterday with a more waxen appearance. There is mild bitemporal wasting noted. She is frail-appearing. Respiratory effort is increased with a frequent dry but rattly cough. There is no stridor. Lungs are diminished with crackles. There is no wheezing noted. CV S1-S2, regular rhythm. Abdomen is soft. Bowel sounds are present. +wound vac She is able to move her extremities with +gen weakness. Left lower extremity pedal pulse intact, right lower extremity no palpable pulse. Right lower extremity is mottled and cool to touch. BLE 2-3+ edema. She awakes to voice, drifts off easily, mod confused [facility]-ICU +. Results & Data Vital Signs (Past 12 Hours) Vital Signs Temp Pulse Pulse Resp BP Pulse Ox O2 Del Method 01/25/25 01:53 37.2 C 98 H 23 119/77 92 Nasal Cannula 01/25/25 01:23 97 H 20 92 Nasal Cannula 01/25/25 00:33 102 H 01/24/25 23:18 37.7 C H 102 H 28 H 105/67 92 Nasal Cannula 01/24/25 20:00 Nasal Cannula 01/24/25 19:54 37.2 C 94 H 18 121/66 100 Nasal Cannula 01/24/25 19:46 91 H 18 99 Nasal Cannula O2 Flow Rate 01/25/25 01:53 1 01/25/25 01:23 1 01/25/25 00:33 01/24/25 23:18 3 01/24/25 20:00 2 01/24/25 19:54 3 01/24/25 19:46 1 Laboratory Results 01/25/25 01/25/25 01/25/25 Range/Units 11:45 07:37 07:26 WBC 0.64 L* (4.8-10.8) K/ul RBC 2.44 L (4.20-5.40) M/uL Hgb 6.9 L* (12.0-16.0) g/dl Hct 20.4 L* (37.0-47.0) % MCV 83.6 (80.0-100.0) fL MCH 28.3 (25.0-34.0) pg MCHC 33.8 (32.0-36.0) g/dL RDW Std Deviation 49.2 H (36.4-46.3) fL RDW Coeff of Sol 16.0 H (11.5-14.5) % Plt Count 68 L (130-400) K/uL MPV 11.8 (9.4-12.4) fL Immature Gran % (Auto) 1.6 % Neut % (Auto) 12.5 % Lymph % (Auto) 53.1 % [place] % (Auto) 32.8 % Eos % (Auto) 0.0 % Baso % (Auto) 0.0 % Neut # (Auto) 0.08 L* (1.40-6.50) K/uL Lymph # (Auto) 0.34 L (1.20-3.40) K/uL [place] # (Auto) 0.21 (0.11-0.59) K/uL Eos # (Auto) 0.00 (0.00-0.50) K/uL Baso # (Auto) 0.00 (0.00-0.20) K/uL Immature Gran # (Auto) 0.01 (0.01-0.20) K/uL Absolute Nucleated RBC (0.00-0.12) K/uL Nucleated RBC % (auto) % Neutrophils % (Manual) % Lymphocytes % (Manual) % Monocytes % (Manual) % Eosinophils % (Manual) % Metamyelocytes % (Man) % Neutrophils # (Manual) (1.40-6.50) K/uL Total Absolute Neuts (1.4-6.5) K/uL Lymphocytes # (Manual) (1.2-3.4) K/uL Total Abs Lymphocytes (1.2-3.4) K/uL Monocytes # (Manual) (0.11-0.59) K/uL Eosinophils # (Manual) (0-0.50) K/uL Metamyelocytes # (Man) (0-0) K/uL Hyposegmented Neuts Toxic Granulation Toxic Vacuolation Polychromasia 1+ Target Cells 1+ PT (9.0-12.0) Seconds INR (0.9-1.1) APTT (21-31) Seconds PTT Ratio Fibrinogen (184-400) mg/dl Heparin Anti-Xa, Unfract 0.26 L (0.3-0.7) IU/ml Sodium 131 L (136-145) mmol/L Potassium 3.9 (3.5-5.1) mmol/L Chloride 99 (98-107) mmol/L Carbon Dioxide 29 (21-32) mmol/L Anion Gap 3 (3-11) BUN 43 H (6-23) mg/dl Creatinine 1.15 (0.6-1.2) mg/dl Est Cr Clr Drug Dosing 43.4 ml/min eGFR 52.21 BUN/Creatinine Ratio 37.4 H (10-20) Glucose 115 H (70-99(Fasting)) mg/dl POC Glucose 163 H 137 H (70-99) mg/dl Lactate (0.4-2.0) mmol/L Calcium 6.9 L (8.6-10.3) mg/dl Phosphorus (2.5-4.9) mg/dl Magnesium 2.1 (1.7-2.4) mg/dl Total Bilirubin 1.1 H (0.2-1.0) mg/dl Direct Bilirubin (0-0.2) mg/dl AST 84 H (13-39) U/L ALT 55 H (7-52) U/L Alkaline Phosphatase 225 H (34-104) U/L Troponin I High Sens (0-14) pg/ml B-Natriuretic Peptide (0-100) pg/ml Total Protein 4.3 L (6.0-8.3) gm/dl Albumin 1.9 L (3.4-5.0) gm/dl Globulin 2.4 L (2.5-4.0) gm/dl Albumin/Globulin Ratio 0.8 L (0.9-2) Lipase (11-82) U/L CA 125 Antigen (<35) U/mL Procalcitonin (0-0.5) ng/ml TSH (0.300-4.500) uIu/ml Free T4 (0.61-1.60) ng/dl Urine Color Urine Appearance (Clear) Urine pH (4.5-7.5) Ur Specific [place] (1.000-1.030) Urine Protein (Negative) Urine Glucose (UA) (Negative) Urine Ketones (Negative) Urine Blood (Negative) Urine Nitrite (Negative) Urine Bilirubin (Negative) Urine Urobilinogen (Negative) Ur Leukocyte Esterase (Negative) Urine WBC (Auto) (0-5) /hpf Urine RBC (Auto) (0-2) /hpf U Hyaline Cast (Auto) (0-2) /lpf U Epithel Cells (Auto) (0-2) /hpf Urine Bacteria (Auto) (None Seen) Adenovirus (PCR) (NotDetected) B. pertussis DNA (PCR) (NotDetected) B.parapertussis DNA PCR (NotDetected) C. pneumoniae DNA (PCR) (NotDetected) Coronavirus OC43 (PCR) (NotDetected) Coronavirus HKU1 (PCR) (NotDetected) Coronavirus 229E (PCR) (NotDetected) SARS-CoV-2 (PCR) (NotDetected) Coronavirus NL63 (PCR) (NotDetected) Human Metapneumovir PCR (NotDetected) Influenza Type A (PCR) (NotDetected) Influenza Type B (PCR) (NotDetected) M. pneumoniae (PCR) (NotDetected) Parainfluenza 1 (PCR) (NotDetected) Parainfluenza 2 (PCR) (NotDetected) Parainfluenza 3 (PCR) (NotDetected) Parainfluenza 4 (PCR) (NotDetected) RSV (PCR) (NotDetected) Entero/Rhino (PCR) (NotDetected) Blood Type Blood Type Recheck Antibody Screen Crossmatch 01/25/25 01/24/25 01/24/25 Range/Units 00:34 21:13 17:04 WBC 0.50 L* (4.8-10.8) K/ul RBC 2.68 L (4.20-5.40) M/uL Hgb 7.4 L (12.0-16.0) g/dl Hct 22.7 L (37.0-47.0) % MCV 84.7 (80.0-100.0) fL MCH 27.6 (25.0-34.0) pg MCHC 32.6 (32.0-36.0) g/dL RDW Std Deviation 49.7 H (36.4-46.3) fL RDW Coeff of Sol 16.2 H (11.5-14.5) % Plt Count 91 L (130-400) K/uL MPV 12.3 (9.4-12.4) fL Immature Gran % (Auto) % Neut % (Auto) % Lymph % (Auto) % [place] % (Auto) % Eos % (Auto) % Baso % (Auto) % Neut # (Auto) (1.40-6.50) K/uL Lymph # (Auto) (1.20-3.40) K/uL [place] # (Auto) (0.11-0.59) K/uL Eos # (Auto) (0.00-0.50) K/uL Baso # (Auto) (0.00-0.20) K/uL Immature Gran # (Auto) (0.01-0.20) K/uL Absolute Nucleated RBC (0.00-0.12) K/uL Nucleated RBC % (auto) % Neutrophils % (Manual) % Lymphocytes % (Manual) % Monocytes % (Manual) % Eosinophils % (Manual) % Metamyelocytes % (Man) % Neutrophils # (Manual) (1.40-6.50) K/uL Total Absolute Neuts (1.4-6.5) K/uL Lymphocytes # (Manual) (1.2-3.4) K/uL Total Abs Lymphocytes (1.2-3.4) K/uL Monocytes # (Manual) (0.11-0.59) K/uL Eosinophils # (Manual) (0-0.50) K/uL Metamyelocytes # (Man) (0-0) K/uL Hyposegmented Neuts Toxic Granulation Toxic Vacuolation Polychromasia Target Cells PT (9.0-12.0) Seconds INR (0.9-1.1) APTT (21-31) Seconds PTT Ratio Fibrinogen (184-400) mg/dl Heparin Anti-Xa, Unfract 0.28 L 0.28 L (0.3-0.7) IU/ml Sodium (136-145) mmol/L Potassium (3.5-5.1) mmol/L Chloride (98-107) mmol/L Carbon Dioxide (21-32) mmol/L Anion Gap (3-11) BUN (6-23) mg/dl Creatinine (0.6-1.2) mg/dl Est Cr Clr Drug Dosing ml/min eGFR BUN/Creatinine Ratio (10-20) Glucose (70-99(Fasting)) mg/dl POC Glucose 112 H (70-99) mg/dl Lactate (0.4-2.0) mmol/L Calcium (8.6-10.3) mg/dl Phosphorus (2.5-4.9) mg/dl Magnesium (1.7-2.4) mg/dl Total Bilirubin (0.2-1.0) mg/dl Direct Bilirubin (0-0.2) mg/dl AST (13-39) U/L ALT (7-52) U/L Alkaline Phosphatase (34-104) U/L Troponin I High Sens (0-14) pg/ml B-Natriuretic Peptide (0-100) pg/ml Total Protein (6.0-8.3) gm/dl Albumin (3.4-5.0) gm/dl Globulin (2.5-4.0) gm/dl Albumin/Globulin Ratio (0.9-2) Lipase (11-82) U/L CA 125 Antigen (<35) U/mL Procalcitonin (0-0.5) ng/ml TSH (0.300-4.500) uIu/ml Free T4 (0.61-1.60) ng/dl Urine Color Urine Appearance (Clear) Urine pH (4.5-7.5) Ur Specific [place] (1.000-1.030) Urine Protein (Negative) Urine Glucose (UA) (Negative) Urine Ketones (Negative) Urine Blood (Negative) Urine Nitrite (Negative) Urine Bilirubin (Negative) Urine Urobilinogen (Negative) Ur Leukocyte Esterase (Negative) Urine WBC (Auto) (0-5) /hpf Urine RBC (Auto) (0-2) /hpf U Hyaline Cast (Auto) (0-2) /lpf U Epithel Cells (Auto) (0-2) /hpf Urine Bacteria (Auto) (None Seen) Adenovirus (PCR) (NotDetected) B. pertussis DNA (PCR) (NotDetected) B.parapertussis DNA PCR (NotDetected) C. pneumoniae DNA (PCR) (NotDetected) Coronavirus OC43 (PCR) (NotDetected) Coronavirus HKU1 (PCR) (NotDetected) Coronavirus 229E (PCR) (NotDetected) SARS-CoV-2 (PCR) (NotDetected) Coronavirus NL63 (PCR) (NotDetected) Human Metapneumovir PCR (NotDetected) Influenza Type A (PCR) (NotDetected) Influenza Type B (PCR) (NotDetected) M. pneumoniae (PCR) (NotDetected) Parainfluenza 1 (PCR) (NotDetected) Parainfluenza 2 (PCR) (NotDetected) Parainfluenza 3 (PCR) (NotDetected) Parainfluenza 4 (PCR) (NotDetected) RSV (PCR) (NotDetected) Entero/Rhino (PCR) (NotDetected) Blood Type Blood Type Recheck Antibody Screen Crossmatch 03/06/25 03/06/25 03/06/25 Range/Units 16:17 11:31 08:14 WBC (4.8-10.8) K/ul RBC (4.20-5.40) M/uL Hgb (12.0-16.0) g/dl Hct (37.0-47.0) % MCV (80.0-100.0) fL MCH (25.0-34.0) pg MCHC (32.0-36.0) g/dL RDW Std Deviation (36.4-46.3) fL RDW Coeff of Sol (11.5-14.5) % Plt Count (130-400) K/uL MPV (9.4-12.4) fL Immature Gran % (Auto) % Neut % (Auto) % Lymph % (Auto) % [place] % (Auto) % Eos % (Auto) % Baso % (Auto) % Neut # (Auto) (1.40-6.50) K/uL Lymph # (Auto) (1.20-3.40) K/uL [place] # (Auto) (0.11-0.59) K/uL Eos # (Auto) (0.00-0.50) K/uL Baso # (Auto) (0.00-0.20) K/uL Immature Gran # (Auto) (0.01-0.20) K/uL Absolute Nucleated RBC (0.00-0.12) K/uL Nucleated RBC % (auto) % Neutrophils % (Manual) % Lymphocytes % (Manual) % Monocytes % (Manual) % Eosinophils % (Manual) % Metamyelocytes % (Man) % Neutrophils # (Manual) (1.40-6.50) K/uL Total Absolute Neuts (1.4-6.5) K/uL Lymphocytes # (Manual) (1.2-3.4) K/uL Total Abs Lymphocytes (1.2-3.4) K/uL Monocytes # (Manual) (0.11-0.59) K/uL Eosinophils # (Manual) (0-0.50) K/uL Metamyelocytes # (Man) (0-0) K/uL Hyposegmented Neuts Toxic Granulation Toxic Vacuolation Polychromasia Target Cells PT (9.0-12.0) Seconds INR (0.9-1.1) APTT (21-31) Seconds PTT Ratio Fibrinogen (184-400) mg/dl Heparin Anti-Xa, Unfract 0.16 L (0.3-0.7) IU/ml Sodium (136-145) mmol/L Potassium (3.5-5.1) mmol/L Chloride (98-107) mmol/L Carbon Dioxide (21-32) mmol/L Anion Gap (3-11) BUN (6-23) mg/dl Creatinine (0.6-1.2) mg/dl Est Cr Clr Drug Dosing ml/min eGFR BUN/Creatinine Ratio (10-20) Glucose (70-99(Fasting)) mg/dl POC Glucose 120 H 207 H (70-99) mg/dl Lactate (0.4-2.0) mmol/L Calcium (8.6-10.3) mg/dl Phosphorus (2.5-4.9) mg/dl Magnesium (1.7-2.4) mg/dl Total Bilirubin (0.2-1.0) mg/dl Direct Bilirubin (0-0.2) mg/dl AST (13-39) U/L ALT (7-52) U/L Alkaline Phosphatase (34-104) U/L Troponin I High Sens (0-14) pg/ml B-Natriuretic Peptide (0-100) pg/ml Total Protein (6.0-8.3) gm/dl Albumin (3.4-5.0) gm/dl Globulin (2.5-4.0) gm/dl Albumin/Globulin Ratio (0.9-2) Lipase (11-82) U/L CA 125 Antigen (<35) U/mL Procalcitonin (0-0.5) ng/ml TSH (0.300-4.500) uIu/ml Free T4 (0.61-1.60) ng/dl Urine Color Urine Appearance (Clear) Urine pH (4.5-7.5) Ur Specific [place] (1.000-1.030) Urine Protein (Negative) Urine Glucose (UA) (Negative) Urine Ketones (Negative) Urine Blood (Negative) Urine Nitrite (Negative) Urine Bilirubin (Negative) Urine Urobilinogen (Negative) Ur Leukocyte Esterase (Negative) Urine WBC (Auto) (0-5) /hpf Urine RBC (Auto) (0-2) /hpf U Hyaline Cast (Auto) (0-2) /lpf U Epithel Cells (Auto) (0-2) /hpf Urine Bacteria (Auto) (None Seen) Adenovirus (PCR) (NotDetected) B. pertussis DNA (PCR) (NotDetected) B.parapertussis DNA PCR (NotDetected) C. pneumoniae DNA (PCR) (NotDetected) Coronavirus OC43 (PCR) (NotDetected) Coronavirus HKU1 (PCR) (NotDetected) Coronavirus 229E (PCR) (NotDetected) SARS-CoV-2 (PCR) (NotDetected) Coronavirus NL63 (PCR) (NotDetected) Human Metapneumovir PCR (NotDetected) Influenza Type A (PCR) (NotDetected) Influenza Type B (PCR) (NotDetected) M. pneumoniae (PCR) (NotDetected) Parainfluenza 1 (PCR) (NotDetected) Parainfluenza 2 (PCR) (NotDetected) Parainfluenza 3 (PCR) (NotDetected) Parainfluenza 4 (PCR) (NotDetected) RSV (PCR) (NotDetected) Entero/Rhino (PCR) (NotDetected) Blood Type Blood Type Recheck Antibody Screen Crossmatch 01/24/25 01/24/25 01/24/25 Range/Units 07:19 06:45 04:36 WBC 0.83 L* 1.00 L D (4.8-10.8) K/ul RBC 2.63 L 2.68 L (4.20-5.40) M/uL Hgb 7.3 L 7.5 L (12.0-16.0) g/dl Hct 22.0 L 22.5 L (37.0-47.0) % MCV 83.7 84.0 (80.0-100.0) fL MCH 27.8 28.0 (25.0-34.0) pg MCHC 33.2 33.3 (32.0-36.0) g/dL RDW Std Deviation 48.6 H 49.6 H (36.4-46.3) fL RDW Coeff of Sol 16.3 H 16.3 H (11.5-14.5) % Plt Count 90 L 100 L (130-400) K/uL MPV 11.3 12.1 (9.4-12.4) fL Immature Gran % (Auto) % Neut % (Auto) % Lymph % (Auto) % [place] % (Auto) % Eos % (Auto) % Baso % (Auto) % Neut # (Auto) (1.40-6.50) K/uL Lymph # (Auto) (1.20-3.40) K/uL [place] # (Auto) (0.11-0.59) K/uL Eos # (Auto) (0.00-0.50) K/uL Baso # (Auto) (0.00-0.20) K/uL Immature Gran # (Auto) (0.01-0.20) K/uL Absolute Nucleated RBC (0.00-0.12) K/uL Nucleated RBC % (auto) % Neutrophils % (Manual) 45 51 % Lymphocytes % (Manual) 53 47 % Monocytes % (Manual) 2 % Eosinophils % (Manual) 1 % Metamyelocytes % (Man) 1 % Neutrophils # (Manual) 0.37 L 0.51 L (1.40-6.50) K/uL Total Absolute Neuts 0.37 L* 0.51 L* (1.4-6.5) K/uL Lymphocytes # (Manual) 0.44 L 0.47 L (1.2-3.4) K/uL Total Abs Lymphocytes 0.44 L 0.47 L (1.2-3.4) K/uL Monocytes # (Manual) 0.02 L (0.11-0.59) K/uL Eosinophils # (Manual) 0.01 (0-0.50) K/uL Metamyelocytes # (Man) 0.01 H (0-0) K/uL Hyposegmented Neuts 1+ Toxic Granulation 1+ Toxic Vacuolation 1+ Polychromasia 1+ Target Cells 1+ PT (9.0-12.0) Seconds INR (0.9-1.1) APTT (21-31) Seconds PTT Ratio Fibrinogen (184-400) mg/dl Heparin Anti-Xa, Unfract (0.3-0.7) IU/ml Sodium 130 L (136-145) mmol/L Potassium 4.0 (3.5-5.1) mmol/L Chloride 99 (98-107) mmol/L Carbon Dioxide 28 (21-32) mmol/L Anion Gap 3 (3-11) BUN 48 H (6-23) mg/dl Creatinine 1.31 H (0.6-1.2) mg/dl Est Cr Clr Drug Dosing 37.9 ml/min eGFR 44.66 BUN/Creatinine Ratio 36.6 H (10-20) Glucose 127 H (70-99(Fasting)) mg/dl POC Glucose 155 H (70-99) mg/dl Lactate (0.4-2.0) mmol/L Calcium 7.0 L (8.6-10.3) mg/dl Phosphorus (2.5-4.9) mg/dl Magnesium 2.1 (1.7-2.4) mg/dl Total Bilirubin 1.9 H (0.2-1.0) mg/dl Direct Bilirubin (0-0.2) mg/dl AST 107 H (13-39) U/L ALT 64 H (7-52) U/L Alkaline Phosphatase 276 H (34-104) U/L Troponin I High Sens (0-14) pg/ml B-Natriuretic Peptide (0-100) pg/ml Total Protein 4.2 L (6.0-8.3) gm/dl Albumin 1.9 L (3.4-5.0) gm/dl Globulin 2.3 L (2.5-4.0) gm/dl Albumin/Globulin Ratio 0.8 L (0.9-2) Lipase (11-82) U/L [place] 125 Antigen (<35) U/mL Procalcitonin (0-0.5) ng/ml TSH (0.300-4.500) uIu/ml Free T4 (0.61-1.60) ng/dl Urine Color Urine Appearance (Clear) Urine pH (4.5-7.5) Ur Specific [place] (1.000-1.030) Urine Protein (Negative) Urine Glucose (UA) (Negative) Urine Ketones (Negative) Urine Blood (Negative) Urine Nitrite (Negative) Urine Bilirubin (Negative) Urine Urobilinogen (Negative) Ur Leukocyte Esterase (Negative) Urine WBC (Auto) (0-5) /hpf Urine RBC (Auto) (0-2) /hpf U Hyaline Cast (Auto) (0-2) /lpf U Epithel Cells (Auto) (0-2) /hpf Urine Bacteria (Auto) (None Seen) Adenovirus (PCR) (NotDetected) B. pertussis DNA (PCR) (NotDetected) B.parapertussis DNA PCR (NotDetected) C. pneumoniae DNA (PCR) (NotDetected) Coronavirus OC43 (PCR) (NotDetected) Coronavirus HKU1 (PCR) (NotDetected) Coronavirus 229E (PCR) (NotDetected) SARS-CoV-2 (PCR) (NotDetected) Coronavirus NL63 (PCR) (NotDetected) Human Metapneumovir PCR (NotDetected) Influenza Type A (PCR) (NotDetected) Influenza Type B (PCR) (NotDetected) M. pneumoniae (PCR) (NotDetected) Parainfluenza 1 (PCR) (NotDetected) Parainfluenza 2 (PCR) (NotDetected) Parainfluenza 3 (PCR) (NotDetected) Parainfluenza 4 (PCR) (NotDetected) RSV (PCR) (NotDetected) Entero/Rhino (PCR) (NotDetected) Blood Type Blood Type Recheck Antibody Screen Crossmatch 01/24/25 01/23/25 01/23/25 Range/Units 01:13 20:42 16:19 WBC (4.8-10.8) K/ul RBC (4.20-5.40) M/uL Hgb (12.0-16.0) g/dl Hct (37.0-47.0) % MCV (80.0-100.0) fL MCH (25.0-34.0) pg MCHC (32.0-36.0) g/dL RDW Std Deviation (36.4-46.3) fL RDW Coeff of Sol (11.5-14.5) % Plt Count (130-400) K/uL MPV (9.4-12.4) fL Immature Gran % (Auto) % Neut % (Auto) % Lymph % (Auto) % [place] % (Auto) % Eos % (Auto) % Baso % (Auto) % Neut # (Auto) (1.40-6.50) K/uL Lymph # (Auto) (1.20-3.40) K/uL [place] # (Auto) (0.11-0.59) K/uL Eos # (Auto) (0.00-0.50) K/uL Baso # (Auto) (0.00-0.20) K/uL Immature Gran # (Auto) (0.01-0.20) K/uL Absolute Nucleated RBC (0.00-0.12) K/uL Nucleated RBC % (auto) % Neutrophils % (Manual) % Lymphocytes % (Manual) % Monocytes % (Manual) % Eosinophils % (Manual) % Metamyelocytes % (Man) % Neutrophils # (Manual) (1.40-6.50) K/uL Total Absolute Neuts (1.4-6.5) K/uL Lymphocytes # (Manual) (1.2-3.4) K/uL Total Abs Lymphocytes (1.2-3.4) K/uL Monocytes # (Manual) (0.11-0.59) K/uL Eosinophils # (Manual) (0-0.50) K/uL Metamyelocytes # (Man) (0-0) K/uL Hyposegmented Neuts Toxic Granulation Toxic Vacuolation Polychromasia Target Cells PT (9.0-12.0) Seconds INR (0.9-1.1) APTT (21-31) Seconds PTT Ratio Fibrinogen (184-400) mg/dl Heparin Anti-Xa, Unfract 0.23 L (0.3-0.7) IU/ml Sodium (136-145) mmol/L Potassium (3.5-5.1) mmol/L Chloride (98-107) mmol/L Carbon Dioxide (21-32) mmol/L Anion Gap (3-11) BUN (6-23) mg/dl Creatinine (0.6-1.2) mg/dl Est Cr Clr Drug Dosing ml/min eGFR BUN/Creatinine Ratio (10-20) Glucose (70-99(Fasting)) mg/dl POC Glucose 162 H 164 H (70-99) mg/dl Lactate (0.4-2.0) mmol/L Calcium (8.6-10.3) mg/dl Phosphorus (2.5-4.9) mg/dl Magnesium (1.7-2.4) mg/dl Total Bilirubin (0.2-1.0) mg/dl Direct Bilirubin (0-0.2) mg/dl AST (13-39) U/L ALT (7-52) U/L Alkaline Phosphatase (34-104) U/L Troponin I High Sens (0-14) pg/ml B-Natriuretic Peptide (0-100) pg/ml Total Protein (6.0-8.3) gm/dl Albumin (3.4-5.0) gm/dl Globulin (2.5-4.0) gm/dl Albumin/Globulin Ratio (0.9-2) Lipase (11-82) U/L CA 125 Antigen (<35) U/mL Procalcitonin (0-0.5) ng/ml TSH (0.300-4.500) uIu/ml Free T4 (0.61-1.60) ng/dl Urine Color Urine Appearance (Clear) Urine pH (4.5-7.5) Ur Specific [place] (1.000-1.030) Urine Protein (Negative) Urine Glucose (UA) (Negative) Urine Ketones (Negative) Urine Blood (Negative) Urine Nitrite (Negative) Urine Bilirubin (Negative) Urine Urobilinogen (Negative) Ur Leukocyte Esterase (Negative) Urine WBC (Auto) (0-5) /hpf Urine RBC (Auto) (0-2) /hpf U Hyaline Cast (Auto) (0-2) /lpf U Epithel Cells (Auto) (0-2) /hpf Urine Bacteria (Auto) (None Seen) Adenovirus (PCR) (NotDetected) B. pertussis DNA (PCR) (NotDetected) B.parapertussis DNA PCR (NotDetected) C. pneumoniae DNA (PCR) (NotDetected) Coronavirus OC43 (PCR) (NotDetected) Coronavirus HKU1 (PCR) (NotDetected) Coronavirus 229E (PCR) (NotDetected) SARS-CoV-2 (PCR) (NotDetected) Coronavirus NL63 (PCR) (NotDetected) Human Metapneumovir PCR (NotDetected) Influenza Type A (PCR) (NotDetected) Influenza Type B (PCR) (NotDetected) M. pneumoniae (PCR) (NotDetected) Parainfluenza 1 (PCR) (NotDetected) Parainfluenza 2 (PCR) (NotDetected) Parainfluenza 3 (PCR) (NotDetected) Parainfluenza 4 (PCR) (NotDetected) RSV (PCR) (NotDetected) Entero/Rhino (PCR) (NotDetected) Blood Type Blood Type Recheck Antibody Screen Crossmatch 01/23/25 01/23/25 01/23/25 Range/Units 11:23 11:06 07:24 WBC (4.8-10.8) K/ul RBC (4.20-5.40) M/uL Hgb (12.0-16.0) g/dl Hct (37.0-47.0) % MCV (80.0-100.0) fL MCH (25.0-34.0) pg MCHC (32.0-36.0) g/dL RDW Std Deviation (36.4-46.3) fL RDW Coeff of Sol (11.5-14.5) % Plt Count (130-400) K/uL MPV (9.4-12.4) fL Immature Gran % (Auto) % Neut % (Auto) % Lymph % (Auto) % [place] % (Auto) % Eos % (Auto) % Baso % (Auto) % Neut # (Auto) (1.40-6.50) K/uL Lymph # (Auto) (1.20-3.40) K/uL [place] # (Auto) (0.11-0.59) K/uL Eos # (Auto) (0.00-0.50) K/uL Baso # (Auto) (0.00-0.20) K/uL Immature Gran # (Auto) (0.01-0.20) K/uL Absolute Nucleated RBC (0.00-0.12) K/uL Nucleated RBC % (auto) % Neutrophils % (Manual) % Lymphocytes % (Manual) % Monocytes % (Manual) % Eosinophils % (Manual) % Metamyelocytes % (Man) % Neutrophils # (Manual) (1.40-6.50) K/uL Total Absolute Neuts (1.4-6.5) K/uL Lymphocytes # (Manual) (1.2-3.4) K/uL Total Abs Lymphocytes (1.2-3.4) K/uL Monocytes # (Manual) (0.11-0.59) K/uL Eosinophils # (Manual) (0-0.50) K/uL Metamyelocytes # (Man) (0-0) K/uL Hyposegmented Neuts Toxic Granulation Toxic Vacuolation Polychromasia Target Cells PT (9.0-12.0) Seconds INR (0.9-1.1) APTT (21-31) Seconds PTT Ratio Fibrinogen (184-400) mg/dl Heparin Anti-Xa, Unfract < 0.10 L (0.3-0.7) IU/ml Sodium (136-145) mmol/L Potassium (3.5-5.1) mmol/L Chloride (98-107) mmol/L Carbon Dioxide (21-32) mmol/L Anion Gap (3-11) BUN (6-23) mg/dl Creatinine (0.6-1.2) mg/dl Est Cr Clr Drug Dosing ml/min eGFR BUN/Creatinine Ratio (10-20) Glucose (70-99(Fasting)) mg/dl POC Glucose 210 H 191 H (70-99) mg/dl Lactate (0.4-2.0) mmol/L Calcium (8.6-10.3) mg/dl Phosphorus (2.5-4.9) mg/dl Magnesium (1.7-2.4) mg/dl Total Bilirubin (0.2-1.0) mg/dl Direct Bilirubin (0-0.2) mg/dl AST (13-39) U/L ALT (7-52) U/L Alkaline Phosphatase (34-104) U/L Troponin I High Sens (0-14) pg/ml B-Natriuretic Peptide (0-100) pg/ml Total Protein (6.0-8.3) gm/dl Albumin (3.4-5.0) gm/dl Globulin (2.5-4.0) gm/dl Albumin/Globulin Ratio (0.9-2) Lipase (11-82) U/L CA 125 Antigen 1921 H (<35) U/mL Procalcitonin (0-0.5) ng/ml TSH (0.300-4.500) uIu/ml Free T4 (0.61-1.60) ng/dl Urine Color Urine Appearance (Clear) Urine pH (4.5-7.5) Ur Specific [place] (1.000-1.030) Urine Protein (Negative) Urine Glucose (UA) (Negative) Urine Ketones (Negative) Urine Blood (Negative) Urine Nitrite (Negative) Urine Bilirubin (Negative) Urine Urobilinogen (Negative) Ur Leukocyte Esterase (Negative) Urine WBC (Auto) (0-5) /hpf Urine RBC (Auto) (0-2) /hpf U Hyaline Cast (Auto) (0-2) /lpf U Epithel Cells (Auto) (0-2) /hpf Urine Bacteria (Auto) (None Seen) Adenovirus (PCR) (NotDetected) B. pertussis DNA (PCR) (NotDetected) B.parapertussis DNA PCR (NotDetected) C. pneumoniae DNA (PCR) (NotDetected) Coronavirus OC43 (PCR) (NotDetected) Coronavirus HKU1 (PCR) (NotDetected) Coronavirus 229E (PCR) (NotDetected) SARS-CoV-2 (PCR) (NotDetected) Coronavirus NL63 (PCR) (NotDetected) Human Metapneumovir PCR (NotDetected) Influenza Type A (PCR) (NotDetected) Influenza Type B (PCR) (NotDetected) M. pneumoniae (PCR) (NotDetected) Parainfluenza 1 (PCR) (NotDetected) Parainfluenza 2 (PCR) (NotDetected) Parainfluenza 3 (PCR) (NotDetected) Parainfluenza 4 (PCR) (NotDetected) RSV (PCR) (NotDetected) Entero/Rhino (PCR) (NotDetected) Blood Type Blood Type Recheck Antibody Screen Crossmatch 01/23/25 01/23/25 01/22/25 Range/Units 05:30 04:38 21:18 WBC 6.42 (4.8-10.8) K/ul RBC 3.02 L (4.20-5.40) M/uL Hgb 8.4 L (12.0-16.0) g/dl Hct 25.4 L (37.0-47.0) % MCV 84.1 (80.0-100.0) fL MCH 27.8 (25.0-34.0) pg MCHC 33.1 (32.0-36.0) g/dL RDW Std Deviation 49.6 H (36.4-46.3) fL RDW Coeff of Sol 16.3 H (11.5-14.5) % Plt Count 144 (130-400) K/uL MPV 10.7 (9.4-12.4) fL Immature Gran % (Auto) % Neut % (Auto) % Lymph % (Auto) % [place] % (Auto) % Eos % (Auto) % Baso % (Auto) % Neut # (Auto) (1.40-6.50) K/uL Lymph # (Auto) (1.20-3.40) K/uL [place] # (Auto) (0.11-0.59) K/uL Eos # (Auto) (0.00-0.50) K/uL Baso # (Auto) (0.00-0.20) K/uL Immature Gran # (Auto) (0.01-0.20) K/uL Absolute Nucleated RBC 0.02 (0.00-0.12) K/uL Nucleated RBC % (auto) 0.3 % Neutrophils % (Manual) % Lymphocytes % (Manual) % Monocytes % (Manual) % Eosinophils % (Manual) % Metamyelocytes % (Man) % Neutrophils # (Manual) (1.40-6.50) K/uL Total Absolute Neuts (1.4-6.5) K/uL Lymphocytes # (Manual) (1.2-3.4) K/uL Total Abs Lymphocytes (1.2-3.4) K/uL Monocytes # (Manual) (0.11-0.59) K/uL Eosinophils # (Manual) (0-0.50) K/uL Metamyelocytes # (Man) (0-0) K/uL Hyposegmented Neuts Toxic Granulation Toxic Vacuolation Polychromasia Target Cells PT 18.9 H (9.0-12.0) Seconds INR 1.8 H (0.9-1.1) APTT 46 H (21-31) Seconds PTT Ratio 1.7 Fibrinogen (184-400) mg/dl Heparin Anti-Xa, Unfract 0.33 < 0.10 L (0.3-0.7) IU/ml Sodium 135 L (136-145) mmol/L Potassium 4.2 (3.5-5.1) mmol/L Chloride 103 (98-107) mmol/L Carbon Dioxide 27 (21-32) mmol/L Anion Gap 5 (3-11) BUN 47 H (6-23) mg/dl Creatinine 1.22 H (0.6-1.2) mg/dl Est Cr Clr Drug Dosing 40.1 ml/min eGFR 48.64 BUN/Creatinine Ratio 38.5 H (10-20) Glucose 153 H (70-99(Fasting)) mg/dl POC Glucose (70-99) mg/dl Lactate (0.4-2.0) mmol/L Calcium 7.4 L (8.6-10.3) mg/dl Phosphorus (2.5-4.9) mg/dl Magnesium 1.8 (1.7-2.4) mg/dl Total Bilirubin 1.3 H (0.2-1.0) mg/dl Direct Bilirubin 0.7 H (0-0.2) mg/dl AST 99 H (13-39) U/L ALT 69 H (7-52) U/L Alkaline Phosphatase 245 H (34-104) U/L Troponin I High Sens (0-14) pg/ml B-Natriuretic Peptide (0-100) pg/ml Total Protein 3.9 L (6.0-8.3) gm/dl Albumin 1.8 L (3.4-5.0) gm/dl Globulin (2.5-4.0) gm/dl Albumin/Globulin Ratio (0.9-2) Lipase (11-82) U/L CA 125 Antigen (<35) U/mL Procalcitonin (0-0.5) ng/ml TSH (0.300-4.500) uIu/ml Free T4 (0.61-1.60) ng/dl Urine Color Urine Appearance (Clear) Urine pH (4.5-7.5) Ur Specific [place] (1.000-1.030) Urine Protein (Negative) Urine Glucose (UA) (Negative) Urine Ketones (Negative) Urine Blood (Negative) Urine Nitrite (Negative) Urine Bilirubin (Negative) Urine Urobilinogen (Negative) Ur Leukocyte Esterase (Negative) Urine WBC (Auto) (0-5) /hpf Urine RBC (Auto) (0-2) /hpf U Hyaline Cast (Auto) (0-2) /lpf U Epithel Cells (Auto) (0-2) /hpf Urine Bacteria (Auto) (None Seen) Adenovirus (PCR) (NotDetected) B. pertussis DNA (PCR) (NotDetected) B.parapertussis DNA PCR (NotDetected) C. pneumoniae DNA (PCR) (NotDetected) Coronavirus OC43 (PCR) (NotDetected) Coronavirus HKU1 (PCR) (NotDetected) Coronavirus 229E (PCR) (NotDetected) SARS-CoV-2 (PCR) (NotDetected) Coronavirus NL63 (PCR) (NotDetected) Human Metapneumovir PCR (NotDetected) Influenza Type A (PCR) (NotDetected) Influenza Type B (PCR) (NotDetected) M. pneumoniae (PCR) (NotDetected) Parainfluenza 1 (PCR) (NotDetected) Parainfluenza 2 (PCR) (NotDetected) Parainfluenza 3 (PCR) (NotDetected) Parainfluenza 4 (PCR) (NotDetected) RSV (PCR) (NotDetected) Entero/Rhino (PCR) (NotDetected) Blood Type Blood Type Recheck Antibody Screen Crossmatch 01/22/25 01/22/25 01/22/25 Range/Units 20:10 20:06 18:02 WBC (4.8-10.8) K/ul RBC (4.20-5.40) M/uL Hgb (12.0-16.0) g/dl Hct (37.0-47.0) % MCV (80.0-100.0) fL MCH (25.0-34.0) pg MCHC (32.0-36.0) g/dL RDW Std Deviation (36.4-46.3) fL RDW Coeff of Sol (11.5-14.5) % Plt Count (130-400) K/uL MPV (9.4-12.4) fL Immature Gran % (Auto) % Neut % (Auto) % Lymph % (Auto) % [place] % (Auto) % Eos % (Auto) % Baso % (Auto) % Neut # (Auto) (1.40-6.50) K/uL Lymph # (Auto) (1.20-3.40) K/uL [place] # (Auto) (0.11-0.59) K/uL Eos # (Auto) (0.00-0.50) K/uL Baso # (Auto) (0.00-0.20) K/uL Immature Gran # (Auto) (0.01-0.20) K/uL Absolute Nucleated RBC (0.00-0.12) K/uL Nucleated RBC % (auto) % Neutrophils % (Manual) % Lymphocytes % (Manual) % Monocytes % (Manual) % Eosinophils % (Manual) % Metamyelocytes % (Man) % Neutrophils # (Manual) (1.40-6.50) K/uL Total Absolute Neuts (1.4-6.5) K/uL Lymphocytes # (Manual) (1.2-3.4) K/uL Total Abs Lymphocytes (1.2-3.4) K/uL Monocytes # (Manual) (0.11-0.59) K/uL Eosinophils # (Manual) (0-0.50) K/uL Metamyelocytes # (Man) (0-0) K/uL Hyposegmented Neuts Toxic Granulation Toxic Vacuolation Polychromasia Target Cells PT (9.0-12.0) Seconds INR (0.9-1.1) APTT 51 H (21-31) Seconds PTT Ratio 1.9 Fibrinogen (184-400) mg/dl Heparin Anti-Xa, Unfract (0.3-0.7) IU/ml Sodium (136-145) mmol/L Potassium (3.5-5.1) mmol/L Chloride (98-107) mmol/L Carbon Dioxide (21-32) mmol/L Anion Gap (3-11) BUN (6-23) mg/dl Creatinine (0.6-1.2) mg/dl Est Cr Clr Drug Dosing ml/min eGFR BUN/Creatinine Ratio (10-20) Glucose (70-99(Fasting)) mg/dl POC Glucose 133 H (70-99) mg/dl Lactate (0.4-2.0) mmol/L Calcium (8.6-10.3) mg/dl Phosphorus (2.5-4.9) mg/dl Magnesium (1.7-2.4) mg/dl Total Bilirubin (0.2-1.0) mg/dl Direct Bilirubin (0-0.2) mg/dl AST (13-39) U/L ALT (7-52) U/L Alkaline Phosphatase (34-104) U/L Troponin I High Sens (0-14) pg/ml B-Natriuretic Peptide (0-100) pg/ml Total Protein (6.0-8.3) gm/dl Albumin (3.4-5.0) gm/dl Globulin (2.5-4.0) gm/dl Albumin/Globulin Ratio (0.9-2) Lipase (11-82) U/L CA 125 Antigen (<35) U/mL Procalcitonin (0-0.5) ng/ml TSH (0.300-4.500) uIu/ml Free T4 (0.61-1.60) ng/dl Urine Color Urine Appearance (Clear) Urine pH (4.5-7.5) Ur Specific [place] (1.000-1.030) Urine Protein (Negative) Urine Glucose (UA) (Negative) Urine Ketones (Negative) Urine Blood (Negative) Urine Nitrite (Negative) Urine Bilirubin (Negative) Urine Urobilinogen (Negative) Ur Leukocyte Esterase (Negative) Urine WBC (Auto) (0-5) /hpf Urine RBC (Auto) (0-2) /hpf U Hyaline Cast (Auto) (0-2) /lpf U Epithel Cells (Auto) (0-2) /hpf Urine Bacteria (Auto) (None Seen) Adenovirus (PCR) (NotDetected) B. pertussis DNA (PCR) (NotDetected) B.parapertussis DNA PCR (NotDetected) C. pneumoniae DNA (PCR) (NotDetected) Coronavirus OC43 (PCR) (NotDetected) Coronavirus HKU1 (PCR) (NotDetected) Coronavirus 229E (PCR) (NotDetected) SARS-CoV-2 (PCR) (NotDetected) Coronavirus NL63 (PCR) (NotDetected) Human Metapneumovir PCR (NotDetected) Influenza Type A (PCR) (NotDetected) Influenza Type B (PCR) (NotDetected) M. pneumoniae (PCR) (NotDetected) Parainfluenza 1 (PCR) (NotDetected) Parainfluenza 2 (PCR) (NotDetected) Parainfluenza 3 (PCR) (NotDetected) Parainfluenza 4 (PCR) (NotDetected) RSV (PCR) (NotDetected) Entero/Rhino (PCR) (NotDetected) Blood Type Blood Type Recheck A Positive Antibody Screen Crossmatch 01/22/25 01/22/25 01/22/25 Range/Units 17:52 16:50 15:44 WBC 9.13 9.43 (4.8-10.8) K/ul RBC 2.96 L 2.93 L (4.20-5.40) M/uL Hgb 8.3 L 8.3 L (12.0-16.0) g/dl Hct 25.7 L 25.2 L (37.0-47.0) % MCV 86.8 86.0 (80.0-100.0) fL MCH 28.0 28.3 (25.0-34.0) pg MCHC 32.3 32.9 (32.0-36.0) g/dL RDW Std Deviation 54.0 H 54.7 H (36.4-46.3) fL RDW Coeff of Sol 17.3 H 17.3 H (11.5-14.5) % Plt Count 188 190 (130-400) K/uL MPV 10.7 10.8 (9.4-12.4) fL Immature Gran % (Auto) % Neut % (Auto) % Lymph % (Auto) % [place] % (Auto) % Eos % (Auto) % Baso % (Auto) % Neut # (Auto) (1.40-6.50) K/uL Lymph # (Auto) (1.20-3.40) K/uL [place] # (Auto) (0.11-0.59) K/uL Eos # (Auto) (0.00-0.50) K/uL Baso # (Auto) (0.00-0.20) K/uL Immature Gran # (Auto) (0.01-0.20) K/uL Absolute Nucleated RBC 0.02 (0.00-0.12) K/uL Nucleated RBC % (auto) 0.2 % Neutrophils % (Manual) % Lymphocytes % (Manual) % Monocytes % (Manual) % Eosinophils % (Manual) % Metamyelocytes % (Man) % Neutrophils # (Manual) (1.40-6.50) K/uL Total Absolute Neuts (1.4-6.5) K/uL Lymphocytes # (Manual) (1.2-3.4) K/uL Total Abs Lymphocytes (1.2-3.4) K/uL Monocytes # (Manual) (0.11-0.59) K/uL Eosinophils # (Manual) (0-0.50) K/uL Metamyelocytes # (Man) (0-0) K/uL Hyposegmented Neuts Toxic Granulation Toxic Vacuolation Polychromasia Target Cells PT 19.7 H (9.0-12.0) Seconds INR 1.9 H (0.9-1.1) APTT > 139 H* (21-31) Seconds PTT Ratio > 4.9 Fibrinogen 370 (184-400) mg/dl Heparin Anti-Xa, Unfract (0.3-0.7) IU/ml Sodium (136-145) mmol/L Potassium (3.5-5.1) mmol/L Chloride (98-107) mmol/L Carbon Dioxide (21-32) mmol/L Anion Gap (3-11) BUN (6-23) mg/dl Creatinine (0.6-1.2) mg/dl Est Cr Clr Drug Dosing ml/min eGFR BUN/Creatinine Ratio (10-20) Glucose (70-99(Fasting)) mg/dl POC Glucose 143 H (70-99) mg/dl Lactate (0.4-2.0) mmol/L Calcium (8.6-10.3) mg/dl Phosphorus (2.5-4.9) mg/dl Magnesium (1.7-2.4) mg/dl Total Bilirubin (0.2-1.0) mg/dl Direct Bilirubin (0-0.2) mg/dl AST (13-39) U/L ALT (7-52) U/L Alkaline Phosphatase (34-104) U/L Troponin I High Sens 286.5 H* (0-14) pg/ml B-Natriuretic Peptide (0-100) pg/ml Total Protein (6.0-8.3) gm/dl Albumin (3.4-5.0) gm/dl Globulin (2.5-4.0) gm/dl Albumin/Globulin Ratio (0.9-2) Lipase (11-82) U/L CA 125 Antigen (<35) U/mL Procalcitonin (0-0.5) ng/ml TSH (0.300-4.500) uIu/ml Free T4 (0.61-1.60) ng/dl Urine Color Urine Appearance (Clear) Urine pH (4.5-7.5) Ur Specific [place] (1.000-1.030) Urine Protein (Negative) Urine Glucose (UA) (Negative) Urine Ketones (Negative) Urine Blood (Negative) Urine Nitrite (Negative) Urine Bilirubin (Negative) Urine Urobilinogen (Negative) Ur Leukocyte Esterase (Negative) Urine WBC (Auto) (0-5) /hpf Urine RBC (Auto) (0-2) /hpf U Hyaline Cast (Auto) (0-2) /lpf U Epithel Cells (Auto) (0-2) /hpf Urine Bacteria (Auto) (None Seen) Adenovirus (PCR) (NotDetected) B. pertussis DNA (PCR) (NotDetected) B.parapertussis DNA PCR (NotDetected) C. pneumoniae DNA (PCR) (NotDetected) Coronavirus OC43 (PCR) (NotDetected) Coronavirus HKU1 (PCR) (NotDetected) Coronavirus 229E (PCR) (NotDetected) SARS-CoV-2 (PCR) (NotDetected) Coronavirus NL63 (PCR) (NotDetected) Human Metapneumovir PCR (NotDetected) Influenza Type A (PCR) (NotDetected) Influenza Type B (PCR) (NotDetected) M. pneumoniae (PCR) (NotDetected) Parainfluenza 1 (PCR) (NotDetected) Parainfluenza 2 (PCR) (NotDetected) Parainfluenza 3 (PCR) (NotDetected) Parainfluenza 4 (PCR) (NotDetected) RSV (PCR) (NotDetected) Entero/Rhino (PCR) (NotDetected) Blood Type A Positive Blood Type Recheck Antibody Screen NEGATIVE Crossmatch See Detail 01/22/25 01/22/25 01/22/25 Range/Units 14:44 14:27 09:08 WBC 10.89 H (4.8-10.8) K/ul RBC 3.48 L (4.20-5.40) M/uL Hgb 9.8 L (12.0-16.0) g/dl Hct 29.8 L (37.0-47.0) % MCV 85.6 (80.0-100.0) fL MCH 28.2 (25.0-34.0) pg MCHC 32.9 (32.0-36.0) g/dL RDW Std Deviation 53.2 H (36.4-46.3) fL RDW Coeff of Sol 17.3 H (11.5-14.5) % Plt Count 219 (130-400) K/uL MPV 10.3 (9.4-12.4) fL Immature Gran % (Auto) 1.5 % Neut % (Auto) 96.7 % Lymph % (Auto) 1.2 % [place] % (Auto) 0.5 % Eos % (Auto) 0.0 % Baso % (Auto) 0.1 % Neut # (Auto) 10.54 H (1.40-6.50) K/uL Lymph # (Auto) 0.13 L (1.20-3.40) K/uL [place] # (Auto) 0.05 L (0.11-0.59) K/uL Eos # (Auto) 0.00 (0.00-0.50) K/uL Baso # (Auto) 0.01 (0.00-0.20) K/uL Immature Gran # (Auto) 0.16 (0.01-0.20) K/uL Absolute Nucleated RBC 0.02 (0.00-0.12) K/uL Nucleated RBC % (auto) 0.2 % Neutrophils % (Manual) % Lymphocytes % (Manual) % Monocytes % (Manual) % Eosinophils % (Manual) % Metamyelocytes % (Man) % Neutrophils # (Manual) (1.40-6.50) K/uL Total Absolute Neuts (1.4-6.5) K/uL Lymphocytes # (Manual) (1.2-3.4) K/uL Total Abs Lymphocytes (1.2-3.4) K/uL Monocytes # (Manual) (0.11-0.59) K/uL Eosinophils # (Manual) (0-0.50) K/uL Metamyelocytes # (Man) (0-0) K/uL Hyposegmented Neuts Toxic Granulation Toxic Vacuolation 1+ Polychromasia Target Cells PT (9.0-12.0) Seconds INR (0.9-1.1) APTT (21-31) Seconds PTT Ratio Fibrinogen (184-400) mg/dl Heparin Anti-Xa, Unfract > 1.50 H* (0.3-0.7) IU/ml Sodium 136 (136-145) mmol/L Potassium 3.9 (3.5-5.1) mmol/L Chloride 104 (98-107) mmol/L Carbon Dioxide 28 (21-32) mmol/L Anion Gap 4 (3-11) BUN 44 H (6-23) mg/dl Creatinine 1.13 (0.6-1.2) mg/dl Est Cr Clr Drug Dosing 46.1 ml/min eGFR 53.32 BUN/Creatinine Ratio 38.9 H (10-20) Glucose 119 H (70-99(Fasting)) mg/dl POC Glucose 134 H 97 (70-99) mg/dl Lactate (0.4-2.0) mmol/L Calcium 7.4 L (8.6-10.3) mg/dl Phosphorus (2.5-4.9) mg/dl Magnesium 1.8 (1.7-2.4) mg/dl Total Bilirubin 1.5 H (0.2-1.0) mg/dl Direct Bilirubin 0.9 H (0-0.2) mg/dl AST 160 H (13-39) U/L ALT 98 H (7-52) U/L Alkaline Phosphatase 386 H (34-104) U/L Troponin I High Sens 322.4 H* D (0-14) pg/ml B-Natriuretic Peptide (0-100) pg/ml Total Protein 4.4 L (6.0-8.3) gm/dl Albumin 2.1 L (3.4-5.0) gm/dl Globulin (2.5-4.0) gm/dl Albumin/Globulin Ratio (0.9-2) Lipase (11-82) U/L CA 125 Antigen (<35) U/mL Procalcitonin (0-0.5) ng/ml TSH (0.300-4.500) uIu/ml Free T4 (0.61-1.60) ng/dl Urine Color Urine Appearance (Clear) Urine pH (4.5-7.5) Ur Specific [place] (1.000-1.030) Urine Protein (Negative) Urine Glucose (UA) (Negative) Urine Ketones (Negative) Urine Blood (Negative) Urine Nitrite (Negative) Urine Bilirubin (Negative) Urine Urobilinogen (Negative) Ur Leukocyte Esterase (Negative) Urine WBC (Auto) (0-5) /hpf Urine RBC (Auto) (0-2) /hpf U Hyaline Cast (Auto) (0-2) /lpf U Epithel Cells (Auto) (0-2) /hpf Urine Bacteria (Auto) (None Seen) Adenovirus (PCR) (NotDetected) B. pertussis DNA (PCR) (NotDetected) B.parapertussis DNA PCR (NotDetected) C. pneumoniae DNA (PCR) (NotDetected) Coronavirus OC43 (PCR) (NotDetected) Coronavirus HKU1 (PCR) (NotDetected) Coronavirus 229E (PCR) (NotDetected) SARS-CoV-2 (PCR) (NotDetected) Coronavirus NL63 (PCR) (NotDetected) Human Metapneumovir PCR (NotDetected) Influenza Type A (PCR) (NotDetected) Influenza Type B (PCR) (NotDetected) M. pneumoniae (PCR) (NotDetected) Parainfluenza 1 (PCR) (NotDetected) Parainfluenza 2 (PCR) (NotDetected) Parainfluenza 3 (PCR) (NotDetected) Parainfluenza 4 (PCR) (NotDetected) RSV (PCR) (NotDetected) Entero/Rhino (PCR) (NotDetected) Blood Type Blood Type Recheck Antibody Screen Crossmatch 01/22/25 01/22/25 01/21/25 Range/Units 04:54 00:00 23:58 WBC (4.8-10.8) K/ul RBC (4.20-5.40) M/uL Hgb (12.0-16.0) g/dl Hct (37.0-47.0) % MCV (80.0-100.0) fL MCH (25.0-34.0) pg MCHC (32.0-36.0) g/dL RDW Std Deviation (36.4-46.3) fL RDW Coeff of Sol (11.5-14.5) % Plt Count (130-400) K/uL MPV (9.4-12.4) fL Immature Gran % (Auto) % Neut % (Auto) % Lymph % (Auto) % [place] % (Auto) % Eos % (Auto) % Baso % (Auto) % Neut # (Auto) (1.40-6.50) K/uL Lymph # (Auto) (1.20-3.40) K/uL [place] # (Auto) (0.11-0.59) K/uL Eos # (Auto) (0.00-0.50) K/uL Baso # (Auto) (0.00-0.20) K/uL Immature Gran # (Auto) (0.01-0.20) K/uL Absolute Nucleated RBC (0.00-0.12) K/uL Nucleated RBC % (auto) % Neutrophils % (Manual) % Lymphocytes % (Manual) % Monocytes % (Manual) % Eosinophils % (Manual) % Metamyelocytes % (Man) % Neutrophils # (Manual) (1.40-6.50) K/uL Total Absolute Neuts (1.4-6.5) K/uL Lymphocytes # (Manual) (1.2-3.4) K/uL Total Abs Lymphocytes (1.2-3.4) K/uL Monocytes # (Manual) (0.11-0.59) K/uL Eosinophils # (Manual) (0-0.50) K/uL Metamyelocytes # (Man) (0-0) K/uL Hyposegmented Neuts Toxic Granulation Toxic Vacuolation Polychromasia Target Cells PT (9.0-12.0) Seconds INR (0.9-1.1) APTT (21-31) Seconds PTT Ratio Fibrinogen (184-400) mg/dl Heparin Anti-Xa, Unfract 0.35 (0.3-0.7) IU/ml Sodium (136-145) mmol/L Potassium (3.5-5.1) mmol/L Chloride (98-107) mmol/L Carbon Dioxide (21-32) mmol/L Anion Gap (3-11) BUN (6-23) mg/dl Creatinine (0.6-1.2) mg/dl Est Cr Clr Drug Dosing ml/min eGFR BUN/Creatinine Ratio (10-20) Glucose (70-99(Fasting)) mg/dl POC Glucose 119 H (70-99) mg/dl Lactate 1.3 (0.4-2.0) mmol/L Calcium (8.6-10.3) mg/dl Phosphorus (2.5-4.9) mg/dl Magnesium (1.7-2.4) mg/dl Total Bilirubin (0.2-1.0) mg/dl Direct Bilirubin (0-0.2) mg/dl AST (13-39) U/L ALT (7-52) U/L Alkaline Phosphatase (34-104) U/L Troponin I High Sens (0-14) pg/ml B-Natriuretic Peptide (0-100) pg/ml Total Protein (6.0-8.3) gm/dl Albumin (3.4-5.0) gm/dl Globulin (2.5-4.0) gm/dl Albumin/Globulin Ratio (0.9-2) Lipase (11-82) U/L CA 125 Antigen (<35) U/mL Procalcitonin (0-0.5) ng/ml TSH (0.300-4.500) uIu/ml Free T4 (0.61-1.60) ng/dl Urine Color Urine Appearance (Clear) Urine pH (4.5-7.5) Ur Specific [place] (1.000-1.030) Urine Protein (Negative) Urine Glucose (UA) (Negative) Urine Ketones (Negative) Urine Blood (Negative) Urine Nitrite (Negative) Urine Bilirubin (Negative) Urine Urobilinogen (Negative) Ur Leukocyte Esterase (Negative) Urine WBC (Auto) (0-5) /hpf Urine RBC (Auto) (0-2) /hpf U Hyaline Cast (Auto) (0-2) /lpf U Epithel Cells (Auto) (0-2) /hpf Urine Bacteria (Auto) (None Seen) Adenovirus (PCR) (NotDetected) B. pertussis DNA (PCR) (NotDetected) B.parapertussis DNA PCR (NotDetected) C. pneumoniae DNA (PCR) (NotDetected) Coronavirus OC43 (PCR) (NotDetected) Coronavirus HKU1 (PCR) (NotDetected) Coronavirus 229E (PCR) (NotDetected) SARS-CoV-2 (PCR) (NotDetected) Coronavirus NL63 (PCR) (NotDetected) Human Metapneumovir PCR (NotDetected) Influenza Type A (PCR) (NotDetected) Influenza Type B (PCR) (NotDetected) M. pneumoniae (PCR) (NotDetected) Parainfluenza 1 (PCR) (NotDetected) Parainfluenza 2 (PCR) (NotDetected) Parainfluenza 3 (PCR) (NotDetected) Parainfluenza 4 (PCR) (NotDetected) RSV (PCR) (NotDetected) Entero/Rhino (PCR) (NotDetected) Blood Type Blood Type Recheck Antibody Screen Crossmatch 01/21/25 01/21/25 01/21/25 Range/Units 21:40 20:54 20:19 WBC (4.8-10.8) K/ul RBC (4.20-5.40) M/uL Hgb (12.0-16.0) g/dl Hct (37.0-47.0) % MCV (80.0-100.0) fL MCH (25.0-34.0) pg MCHC (32.0-36.0) g/dL RDW Std Deviation (36.4-46.3) fL RDW Coeff of Sol (11.5-14.5) % Plt Count (130-400) K/uL MPV (9.4-12.4) fL Immature Gran % (Auto) % Neut % (Auto) % Lymph % (Auto) % [place] % (Auto) % Eos % (Auto) % Baso % (Auto) % Neut # (Auto) (1.40-6.50) K/uL Lymph # (Auto) (1.20-3.40) K/uL [place] # (Auto) (0.11-0.59) K/uL Eos # (Auto) (0.00-0.50) K/uL Baso # (Auto) (0.00-0.20) K/uL Immature Gran # (Auto) (0.01-0.20) K/uL Absolute Nucleated RBC (0.00-0.12) K/uL Nucleated RBC % (auto) % Neutrophils % (Manual) % Lymphocytes % (Manual) % Monocytes % (Manual) % Eosinophils % (Manual) % Metamyelocytes % (Man) % Neutrophils # (Manual) (1.40-6.50) K/uL Total Absolute Neuts (1.4-6.5) K/uL Lymphocytes # (Manual) (1.2-3.4) K/uL Total Abs Lymphocytes (1.2-3.4) K/uL Monocytes # (Manual) (0.11-0.59) K/uL Eosinophils # (Manual) (0-0.50) K/uL Metamyelocytes # (Man) (0-0) K/uL Hyposegmented Neuts Toxic Granulation Toxic Vacuolation Polychromasia Target Cells PT (9.0-12.0) Seconds INR (0.9-1.1) APTT (21-31) Seconds PTT Ratio Fibrinogen (184-400) mg/dl Heparin Anti-Xa, Unfract (0.3-0.7) IU/ml Sodium (136-145) mmol/L Potassium (3.5-5.1) mmol/L Chloride (98-107) mmol/L Carbon Dioxide (21-32) mmol/L Anion Gap (3-11) BUN (6-23) mg/dl Creatinine (0.6-1.2) mg/dl Est Cr Clr Drug Dosing ml/min eGFR BUN/Creatinine Ratio (10-20) Glucose (70-99(Fasting)) mg/dl POC Glucose 175 H (70-99) mg/dl Lactate 2.1 H* (0.4-2.0) mmol/L Calcium (8.6-10.3) mg/dl Phosphorus (2.5-4.9) mg/dl Magnesium (1.7-2.4) mg/dl Total Bilirubin (0.2-1.0) mg/dl Direct Bilirubin (0-0.2) mg/dl AST (13-39) U/L ALT (7-52) U/L Alkaline Phosphatase (34-104) U/L Troponin I High Sens (0-14) pg/ml B-Natriuretic Peptide (0-100) pg/ml Total Protein (6.0-8.3) gm/dl Albumin (3.4-5.0) gm/dl Globulin (2.5-4.0) gm/dl Albumin/Globulin Ratio (0.9-2) Lipase (11-82) U/L CA 125 Antigen (<35) U/mL Procalcitonin (0-0.5) ng/ml TSH (0.300-4.500) uIu/ml Free T4 (0.61-1.60) ng/dl Urine Color Yellow Urine Appearance Clear (Clear) Urine pH 5.0 (4.5-7.5) Ur Specific [place] 1.025 (1.000-1.030) Urine Protein Negative (Negative) Urine Glucose (UA) Negative (Negative) Urine Ketones Negative (Negative) Urine Blood Trace H (Negative) Urine Nitrite Negative (Negative) Urine Bilirubin Negative (Negative) Urine Urobilinogen Negative (Negative) Ur Leukocyte Esterase Negative (Negative) Urine WBC (Auto) 0-5 (0-5) /hpf Urine RBC (Auto) 3-5 H (0-2) /hpf U Hyaline Cast (Auto) 0-2 (0-2) /lpf U Epithel Cells (Auto) 3-5 H (0-2) /hpf Urine Bacteria (Auto) None Seen (None Seen) Adenovirus (PCR) (NotDetected) B. pertussis DNA (PCR) (NotDetected) B.parapertussis DNA PCR (NotDetected) C. pneumoniae DNA (PCR) (NotDetected) Coronavirus OC43 (PCR) (NotDetected) Coronavirus HKU1 (PCR) (NotDetected) Coronavirus 229E (PCR) (NotDetected) SARS-CoV-2 (PCR) (NotDetected) Coronavirus NL63 (PCR) (NotDetected) Human Metapneumovir PCR (NotDetected) Influenza Type A (PCR) (NotDetected) Influenza Type B (PCR) (NotDetected) M. pneumoniae (PCR) (NotDetected) Parainfluenza 1 (PCR) (NotDetected) Parainfluenza 2 (PCR) (NotDetected) Parainfluenza 3 (PCR) (NotDetected) Parainfluenza 4 (PCR) (NotDetected) RSV (PCR) (NotDetected) Entero/Rhino (PCR) (NotDetected) Blood Type Blood Type Recheck Antibody Screen Crossmatch 01/21/25 01/21/25 01/21/25 Range/Units 19:11 19:00 18:45 WBC (4.8-10.8) K/ul RBC (4.20-5.40) M/uL Hgb (12.0-16.0) g/dl Hct (37.0-47.0) % MCV (80.0-100.0) fL MCH (25.0-34.0) pg MCHC (32.0-36.0) g/dL RDW Std Deviation (36.4-46.3) fL RDW Coeff of Sol (11.5-14.5) % Plt Count (130-400) K/uL MPV (9.4-12.4) fL Immature Gran % (Auto) % Neut % (Auto) % Lymph % (Auto) % [place] % (Auto) % Eos % (Auto) % Baso % (Auto) % Neut # (Auto) (1.40-6.50) K/uL Lymph # (Auto) (1.20-3.40) K/uL [place] # (Auto) (0.11-0.59) K/uL Eos # (Auto) (0.00-0.50) K/uL Baso # (Auto) (0.00-0.20) K/uL Immature Gran # (Auto) (0.01-0.20) K/uL Absolute Nucleated RBC (0.00-0.12) K/uL Nucleated RBC % (auto) % Neutrophils % (Manual) % Lymphocytes % (Manual) % Monocytes % (Manual) % Eosinophils % (Manual) % Metamyelocytes % (Man) % Neutrophils # (Manual) (1.40-6.50) K/uL Total Absolute Neuts (1.4-6.5) K/uL Lymphocytes # (Manual) (1.2-3.4) K/uL Total Abs Lymphocytes (1.2-3.4) K/uL Monocytes # (Manual) (0.11-0.59) K/uL Eosinophils # (Manual) (0-0.50) K/uL Metamyelocytes # (Man) (0-0) K/uL Hyposegmented Neuts Toxic Granulation Toxic Vacuolation Polychromasia Target Cells PT (9.0-12.0) Seconds INR (0.9-1.1) APTT (21-31) Seconds PTT Ratio Fibrinogen (184-400) mg/dl Heparin Anti-Xa, Unfract (0.3-0.7) IU/ml Sodium (136-145) mmol/L Potassium (3.5-5.1) mmol/L Chloride (98-107) mmol/L Carbon Dioxide (21-32) mmol/L Anion Gap (3-11) BUN (6-23) mg/dl Creatinine (0.6-1.2) mg/dl Est Cr Clr Drug Dosing ml/min eGFR BUN/Creatinine Ratio (10-20) Glucose (70-99(Fasting)) mg/dl POC Glucose 86 66 L* (70-99) mg/dl Lactate (0.4-2.0) mmol/L Calcium (8.6-10.3) mg/dl Phosphorus (2.5-4.9) mg/dl Magnesium (1.7-2.4) mg/dl Total Bilirubin (0.2-1.0) mg/dl Direct Bilirubin (0-0.2) mg/dl AST (13-39) U/L ALT (7-52) U/L Alkaline Phosphatase (34-104) U/L Troponin I High Sens 229.6 H* D (0-14) pg/ml B-Natriuretic Peptide (0-100) pg/ml Total Protein (6.0-8.3) gm/dl Albumin (3.4-5.0) gm/dl Globulin (2.5-4.0) gm/dl Albumin/Globulin Ratio (0.9-2) Lipase (11-82) U/L CA 125 Antigen (<35) U/mL Procalcitonin (0-0.5) ng/ml TSH (0.300-4.500) uIu/ml Free T4 (0.61-1.60) ng/dl Urine Color Urine Appearance (Clear) Urine pH (4.5-7.5) Ur Specific [place] (1.000-1.030) Urine Protein (Negative) Urine Glucose (UA) (Negative) Urine Ketones (Negative) Urine Blood (Negative) Urine Nitrite (Negative) Urine Bilirubin (Negative) Urine Urobilinogen (Negative) Ur Leukocyte Esterase (Negative) Urine WBC (Auto) (0-5) /hpf Urine RBC (Auto) (0-2) /hpf U Hyaline Cast (Auto) (0-2) /lpf U Epithel Cells (Auto) (0-2) /hpf Urine Bacteria (Auto) (None Seen) Adenovirus (PCR) (NotDetected) B. pertussis DNA (PCR) (NotDetected) B.parapertussis DNA PCR (NotDetected) C. pneumoniae DNA (PCR) (NotDetected) Coronavirus OC43 (PCR) (NotDetected) Coronavirus HKU1 (PCR) (NotDetected) Coronavirus 229E (PCR) (NotDetected) SARS-CoV-2 (PCR) (NotDetected) Coronavirus NL63 (PCR) (NotDetected) Human Metapneumovir PCR (NotDetected) Influenza Type A (PCR) (NotDetected) Influenza Type B (PCR) (NotDetected) M. pneumoniae (PCR) (NotDetected) Parainfluenza 1 (PCR) (NotDetected) Parainfluenza 2 (PCR) (NotDetected) Parainfluenza 3 (PCR) (NotDetected) Parainfluenza 4 (PCR) (NotDetected) RSV (PCR) (NotDetected) Entero/Rhino (PCR) (NotDetected) Blood Type Blood Type Recheck Antibody Screen Crossmatch 01/21/25 01/21/25 01/21/25 Range/Units 18:44 18:16 15:00 WBC 11.17 H (4.8-10.8) K/ul RBC 4.48 (4.20-5.40) M/uL Hgb 12.3 (12.0-16.0) g/dl Hct 38.7 (37.0-47.0) % MCV 86.4 (80.0-100.0) fL MCH 27.5 (25.0-34.0) pg MCHC 31.8 L (32.0-36.0) g/dL RDW Std Deviation 54.9 H (36.4-46.3) fL RDW Coeff of Sol 17.4 H (11.5-14.5) % Plt Count 310 (130-400) K/uL MPV 10.0 (9.4-12.4) fL Immature Gran % (Auto) 0.4 % Neut % (Auto) 94.8 % Lymph % (Auto) 3.9 % [place] % (Auto) 0.7 % Eos % (Auto) 0.2 % Baso % (Auto) 0.0 % Neut # (Auto) 10.58 H (1.40-6.50) K/uL Lymph # (Auto) 0.44 L (1.20-3.40) K/uL [place] # (Auto) 0.08 L (0.11-0.59) K/uL Eos # (Auto) 0.02 (0.00-0.50) K/uL Baso # (Auto) 0.00 (0.00-0.20) K/uL Immature Gran # (Auto) 0.05 (0.01-0.20) K/uL Absolute Nucleated RBC 0.02 (0.00-0.12) K/uL Nucleated RBC % (auto) 0.2 % Neutrophils % (Manual) % Lymphocytes % (Manual) % Monocytes % (Manual) % Eosinophils % (Manual) % Metamyelocytes % (Man) % Neutrophils # (Manual) (1.40-6.50) K/uL Total Absolute Neuts (1.4-6.5) K/uL Lymphocytes # (Manual) (1.2-3.4) K/uL Total Abs Lymphocytes (1.2-3.4) K/uL Monocytes # (Manual) (0.11-0.59) K/uL Eosinophils # (Manual) (0-0.50) K/uL Metamyelocytes # (Man) (0-0) K/uL Hyposegmented Neuts Toxic Granulation Toxic Vacuolation 1+ Polychromasia Target Cells 1+ PT 14.6 H (9.0-12.0) Seconds INR 1.4 H (0.9-1.1) APTT 31 (21-31) Seconds PTT Ratio 1.2 Fibrinogen (184-400) mg/dl Heparin Anti-Xa, Unfract (0.3-0.7) IU/ml Sodium 137 (136-145) mmol/L Potassium 3.8 (3.5-5.1) mmol/L Chloride 102 (98-107) mmol/L Carbon Dioxide 34 H (21-32) mmol/L Anion Gap 1 L (3-11) BUN 49 H (6-23) mg/dl Creatinine 1.07 (0.6-1.2) mg/dl Est Cr Clr Drug Dosing 47.5 ml/min eGFR 56.93 BUN/Creatinine Ratio 45.8 H (10-20) Glucose 87 (70-99(Fasting)) mg/dl POC Glucose 65 L* 61 L* (70-99) mg/dl Lactate (0.4-2.0) mmol/L Calcium 8.3 L (8.6-10.3) mg/dl Phosphorus 3.1 (2.5-4.9) mg/dl Magnesium 2.1 (1.7-2.4) mg/dl Total Bilirubin 1.0 (0.2-1.0) mg/dl Direct Bilirubin (0-0.2) mg/dl AST 245 H (13-39) U/L ALT 145 H (7-52) U/L Alkaline Phosphatase 339 H (34-104) U/L Troponin I High Sens 174.8 H* (0-14) pg/ml B-Natriuretic Peptide 243 H (0-100) pg/ml Total Protein 5.3 L (6.0-8.3) gm/dl Albumin 2.6 L (3.4-5.0) gm/dl Globulin 2.7 (2.5-4.0) gm/dl Albumin/Globulin Ratio 1.0 (0.9-2) Lipase 11 (11-82) U/L CA 125 Antigen (<35) U/mL Procalcitonin 0.61 H (0-0.5) ng/ml TSH 4.667 H (0.300-4.500) uIu/ml Free T4 1.05 (0.61-1.60) ng/dl Urine Color Urine Appearance (Clear) Urine pH (4.5-7.5) Ur Specific [place] (1.000-1.030) Urine Protein (Negative) Urine Glucose (UA) (Negative) Urine Ketones (Negative) Urine Blood (Negative) Urine Nitrite (Negative) Urine Bilirubin (Negative) Urine Urobilinogen (Negative) Ur Leukocyte Esterase (Negative) Urine WBC (Auto) (0-5) /hpf Urine RBC (Auto) (0-2) /hpf U Hyaline Cast (Auto) (0-2) /lpf U Epithel Cells (Auto) (0-2) /hpf Urine Bacteria (Auto) (None Seen) Adenovirus (PCR) (NotDetected) B. pertussis DNA (PCR) (NotDetected) B.parapertussis DNA PCR (NotDetected) C. pneumoniae DNA (PCR) (NotDetected) Coronavirus OC43 (PCR) (NotDetected) Coronavirus HKU1 (PCR) (NotDetected) Coronavirus 229E (PCR) (NotDetected) SARS-CoV-2 (PCR) (NotDetected) Coronavirus NL63 (PCR) (NotDetected) Human Metapneumovir PCR (NotDetected) Influenza Type A (PCR) (NotDetected) Influenza Type B (PCR) (NotDetected) M. pneumoniae (PCR) (NotDetected) Parainfluenza 1 (PCR) (NotDetected) Parainfluenza 2 (PCR) (NotDetected) Parainfluenza 3 (PCR) (NotDetected) Parainfluenza 4 (PCR) (NotDetected) RSV (PCR) (NotDetected) Entero/Rhino (PCR) (NotDetected) Blood Type Blood Type Recheck Antibody Screen Crossmatch 01/21/25 Range/Units 14:00 WBC (4.8-10.8) K/ul RBC (4.20-5.40) M/uL Hgb (12.0-16.0) g/dl Hct (37.0-47.0) % MCV (80.0-100.0) fL MCH (25.0-34.0) pg MCHC (32.0-36.0) g/dL RDW Std Deviation (36.4-46.3) fL RDW Coeff of Sol (11.5-14.5) % Plt Count (130-400) K/uL MPV (9.4-12.4) fL Immature Gran % (Auto) % Neut % (Auto) % Lymph % (Auto) % [place] % (Auto) % Eos % (Auto) % Baso % (Auto) % Neut # (Auto) (1.40-6.50) K/uL Lymph # (Auto) (1.20-3.40) K/uL [place] # (Auto) (0.11-0.59) K/uL Eos # (Auto) (0.00-0.50) K/uL Baso # (Auto) (0.00-0.20) K/uL Immature Gran # (Auto) (0.01-0.20) K/uL Absolute Nucleated RBC (0.00-0.12) K/uL Nucleated RBC % (auto) % Neutrophils % (Manual) % Lymphocytes % (Manual) % Monocytes % (Manual) % Eosinophils % (Manual) % Metamyelocytes % (Man) % Neutrophils # (Manual) (1.40-6.50) K/uL Total Absolute Neuts (1.4-6.5) K/uL Lymphocytes # (Manual) (1.2-3.4) K/uL Total Abs Lymphocytes (1.2-3.4) K/uL Monocytes # (Manual) (0.11-0.59) K/uL Eosinophils # (Manual) (0-0.50) K/uL Metamyelocytes # (Man) (0-0) K/uL Hyposegmented Neuts Toxic Granulation Toxic Vacuolation Polychromasia Target Cells PT (9.0-12.0) Seconds INR (0.9-1.1) APTT (21-31) Seconds PTT Ratio Fibrinogen (184-400) mg/dl Heparin Anti-Xa, Unfract (0.3-0.7) IU/ml Sodium (136-145) mmol/L Potassium (3.5-5.1) mmol/L Chloride (98-107) mmol/L Carbon Dioxide (21-32) mmol/L Anion Gap (3-11) BUN (6-23) mg/dl Creatinine (0.6-1.2) mg/dl Est Cr Clr Drug Dosing ml/min eGFR BUN/Creatinine Ratio (10-20) Glucose (70-99(Fasting)) mg/dl POC Glucose (70-99) mg/dl Lactate (0.4-2.0) mmol/L Calcium (8.6-10.3) mg/dl Phosphorus (2.5-4.9) mg/dl Magnesium (1.7-2.4) mg/dl Total Bilirubin (0.2-1.0) mg/dl Direct Bilirubin (0-0.2) mg/dl AST (13-39) U/L ALT (7-52) U/L Alkaline Phosphatase (34-104) U/L Troponin I High Sens (0-14) pg/ml B-Natriuretic Peptide (0-100) pg/ml Total Protein (6.0-8.3) gm/dl Albumin (3.4-5.0) gm/dl Globulin (2.5-4.0) gm/dl Albumin/Globulin Ratio (0.9-2) Lipase (11-82) U/L CA 125 Antigen (<35) U/mL Procalcitonin (0-0.5) ng/ml TSH (0.300-4.500) uIu/ml Free T4 (0.61-1.60) ng/dl Urine Color Urine Appearance (Clear) Urine pH (4.5-7.5) Ur Specific [place] (1.000-1.030) Urine Protein (Negative) Urine Glucose (UA) (Negative) Urine Ketones (Negative) Urine Blood (Negative) Urine Nitrite (Negative) Urine Bilirubin (Negative) Urine Urobilinogen (Negative) Ur Leukocyte Esterase (Negative) Urine WBC (Auto) (0-5) /hpf Urine RBC (Auto) (0-2) /hpf U Hyaline Cast (Auto) (0-2) /lpf U Epithel Cells (Auto) (0-2) /hpf Urine Bacteria (Auto) (None Seen) Adenovirus (PCR) Not Detected (NotDetected) B. pertussis DNA (PCR) Not Detected (NotDetected) B.parapertussis DNA PCR Not Detected (NotDetected) C. pneumoniae DNA (PCR) Not Detected (NotDetected) Coronavirus OC43 (PCR) Not Detected (NotDetected) Coronavirus HKU1 (PCR) Not Detected (NotDetected) Coronavirus 229E (PCR) Not Detected (NotDetected) SARS-CoV-2 (PCR) Not Detected (NotDetected) Coronavirus NL63 (PCR) Not Detected (NotDetected) Human Metapneumovir PCR Not Detected (NotDetected) Influenza Type A (PCR) Not Detected (NotDetected) Influenza Type B (PCR) Not Detected (NotDetected) M. pneumoniae (PCR) Not Detected (NotDetected) Parainfluenza 1 (PCR) Not Detected (NotDetected) Parainfluenza 2 (PCR) Not Detected (NotDetected) Parainfluenza 3 (PCR) Not Detected (NotDetected) Parainfluenza 4 (PCR) Not Detected (NotDetected) RSV (PCR) Not Detected (NotDetected) Entero/Rhino (PCR) Not Detected (NotDetected) Blood Type Blood Type Recheck Antibody Screen Crossmatch Diagnostic Findings Aorta w/Runoff CTA 01/21/25 16:18 EXAM: CT pablito khoury CLINICAL HISTORY: OvCA perit carcinomatosis, Absent R pedal pulses. TECHNIQUE: CT Angiography of abdominal aorta, bilateral iliac and femoropopliteal arterial trees with IV contrast administration. 119ml Optiray 320 One of these 3D techniques was utilized: Maximum Intensity Pixel (MIP), 3D Reconstructed Images, Volume Rendered Images, Surface Shaded Rendering. One of the following dose reduction techniques was utilized for this exam: Automated exposure control, adjustment of the mA and/or kV according to patient size, and use of iterative reconstruction. COMPARISON: Comoared to prior CT 01/02/2025 FINDINGS: Diffuse increase in intimal medial thickness of all examined arteries with no significant stenosis except at the right common iliac artery reaching 75 %. Aorta: The abdominal aorta is normal in caliber. No evidence of aneurysm, dissection, or significant atherosclerotic changes. Aortic bifurcation is unremarkable. Renal Arteries: Renal arteries are normal in size and opacification. No evidence of stenosis or occlusion. Symmetric perfusion of both kidneys. Mesenteric Arteries: Superior mesenteric artery (SMA) and inferior mesenteric artery (RAJNI) are normal in caliber and opacification. No evidence of stenosis or occlusion. Celiac Artery: Celiac artery is normal in caliber and opacification. No evidence of stenosis or occlusion. Iliac Arteries: Common, internal, and external iliac arteries are normal in caliber and opacification. No evidence of stenosis, aneurysm, or occlusion. 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 Femoral Arteries: Common femoral arteries are normal in caliber and opacification. No evidence of stenosis or occlusion. Superficial and deep femoral arteries are normal in appearance. Popliteal Arteries: Popliteal arteries are normal in caliber and opacification. No evidence of stenosis or occlusion. Tibial Arteries: Anterior tibial, posterior tibial, and peroneal arteries are normal in caliber and opacification. No evidence of stenosis or occlusion. Venous Structures: Inferior vena cava (IVC) and major venous structures are normal in caliber and opacification. No evidence of thrombus or obstruction. Liver: Normal size and morphology. Homogeneous enhancement post-contrast. No focal hepatic lesions. Gallbladder and Biliary System: Chlecywtetcomy clips. Dilated intrahepatic and extrahepatic biliary channels. reach CBD 12 mm. Pancreas: Normal size and contour. Homogeneous enhancement post-contrast. No masses or cystic lesions. Spleen: Normal size and appearance. Homogeneous enhancement post-contrast. Adrenal Glands: Normal size and morphology bilaterally. No adrenal masses. Kidneys and Ureters: Normal size, shape, and position of both kidneys. Homogeneous enhancement post-contrast. No renal stones, masses, or hydronephrosis. Ureters are unremarkable. Bladder: Normal in size and wall thickness. No intraluminal masses. Bilateral complex adenxal cystic masses. Normal enhancement post-contrast. Bowel: Normal appearance of the visualized bowel loops. No evidence of obstruction, wall thickening, or abnormal dilatation. Lymph Nodes: No pathologically enlarged lymph nodes in the abdomen or pelvis. Peritoneum: Marked amount of free fluid in abdomen and pelvis with multiple nodules and enhancing omental deposits, largest anterior to the spleen measuring about 10x5.5 cm. Bones: No lytic or sclerotic lesions. Normal alignment and bone density. Soft Tissues: Normal appearance of the visualized soft tissues. IMPRESSION: 1. 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 2. 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 with marked ascites, and enhancing omental deposits, largest anterior to the spleen measuring about 10x5.5 cm., suggest clinical assessment, and tumor markers (unchanged) 3. Dilated intrahepatic and extrahepatic biliary channels. reach CBD 12 mm. Suggest MRCP and clinical assessment (new) Electronically signed by Nohemy Leahy 01-21-2025 8:08 PM Chest CTA 01/21/25 16:18 EXAM: CT angio chest PE protocol CLINICAL HISTORY: SOB, OvCA peritoneal carcinomatosis, r/o PE TECHNIQUE: CT angiography of the chest was performed with the administration of intravenous contrast with the following protocol: axial images with, reconstructed coronal and sagittal images. The contrast-enhanced images were acquired in arterial and venous phases. Intravenous contrast was administered using automated injection techniques. Bolus tracking was employed to optimize arterial phase imaging. One of these 3D techniques was utilized: Maximum Intensity Pixel (MIP), 3D Reconstructed Images, Volume Rendered Images, Surface Shaded Rendering. One of the following dose reduction techniques was utilized for this exam: Automated exposure control, adjustment of the mA and/or kV according to patient size, and use of iterative reconstruction. (CTDI: 23.75 mGy, DLP: 2661.55 mGy*cm) COMPARISON: Comparison is made with 01/02/2025. FINDINGS: Aorta and Great Vessels: Ascending Aorta: Normal in caliber, no aneurysm, dissection, or significant atherosclerosis. Aortic Arch: Normal in caliber, no aneurysm, dissection, or significant atherosclerosis. Descending Aorta: Normal in caliber, no aneurysm, dissection, or significant atherosclerosis. Pulmonary Arteries: The main pulmonary artery and its branches are patent. No evidence of pulmonary embolism or significant stenosis. Heart: Cardiac Chambers: increase cardiac size. Pericardium: No pericardial effusion or thickening. Lungs and Pleura: Bilateral basal consolidations Bilateral moderate pleural effusion with passive atelectasis. Slight compressed lower trachea and bronchi with patent lumen. Mediastinum: No mediastinal mass or abnormal lymphadenopathy. Normal appearance of the trachea and central bronchi. Hilar Structures: Hilar structures are normal without enlargement. Chest Wall: No mass lesions or abnormalities in the chest wall. Vascular Structures: Superior Vena Cava: Patent without evidence of stenosis or thrombus. Inferior Vena Cava: Patent without evidence of stenosis or thrombus. Bones and Soft Tissues: No fractures, lytic, or blastic lesions of the visualized bony structures. Thoracic spondylosis. Soft tissues are unremarkable. IMPRESSION: 1. No pulmonary embolism at the time of the scan. (unchanged) 2. Bilateral moderate pleural effusion with compression collapse of both posterior segments of both lower lobes. (unchanged) 3. Slight compressed lower trachea and bronchi with patent lumen. (unchanged) suggests clinical assessment. 4. Cardiomegaly. (unchanged) Electronically signed by Nohemy Leahy 01-21-2025 7:47 PM Duplex Scan Lower Extremity Artery 01/21/25 18:09 Exam(s): US ARTERIAL RIGHT LOWER EXTREMITY EXAM: US Duplex Right Lower Extremity Arteries CLINICAL HISTORY: Absent right pedal pulses. TECHNIQUE: Real-time duplex ultrasound scan of the right lower extremity arteries integrating B-mode two-dimensional vascular structure, Doppler spectral analysis and color flow Doppler imaging. COMPARISON: No relevant prior studies available. 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 There is multiphasic wave forms of the peak systolic velocity of 72 cm/s. Right superficial femoral artery: The superficial femoral artery is patent with atherosclerotic disease and multiphasic waveforms, with the peak systolic velocities measuring 104 cm/s proximally, 107 cm at the mid segment and 77 cm/s distally. Right popliteal artery: The right popliteal artery demonstrates monophasic waveforms with a peak systolic velocity of between 30-40 cm/s. Right calf/foot arteries: The right posterior tibial artery is not well delineated. No arterial flow noted in this region. The peroneal artery is not clearly delineated. The proximal right anterior tibial artery is patent with monophasic waveforms and peak systolic velocity of 24 cm/s. The mid to distal anterior tibial artery are not clearly delineated and may be occluded. The dorsalis pedis artery is not definitively delineated sonographically. Other arteries: The proximal right profunda femoral artery is patent with biphasic waveforms in the peak systolic velocity of 64 cm/s. Soft tissues: Subcutaneous edema noted at the calf. IMPRESSION: 1. The proximal right anterior tibial artery is patent with monophasic waveforms and peak systolic velocity of 24 cm/s. The mid to distal anterior tibial artery are not clearly delineated and may be occluded. The peroneal and posterior tibial arteries are not identified. The dorsalis pedis artery is not clearly delineated and may be occluded. Recommend further evaluation with CTA or conventional angiography, as clinically indicated. 2. Atherosclerotic disease from the common femoral through the superficial femoral arteries. No elevated velocities to suggest a focal hemodynamic stenosis. The popliteal artery demonstrates monophasic waveforms, but is patent. Electronically signed by: Pato Aldana MD 01/21/25 21:20 PM Venous Doppler Study 01/21/25 18:09 Exam(s): US VENOUS BILATERAL LOWER EXTREMITIES EXAM: US Duplex Bilateral Lower Extremities Veins CLINICAL HISTORY: BLE edema. TECHNIQUE: Real-time duplex ultrasound scan of the bilateral lower extremity veins integrating B-mode two-dimensional vascular structure, Doppler spectral analysis, color flow Doppler imaging and compression. COMPARISON: No relevant prior studies available. FINDINGS: Limitations: Evaluation is reportedly limited by underlying edema. Right deep veins: Unremarkable. No DVT in the right common femoral, femoral, proximal deep femoral or popliteal veins. The veins demonstrate normal color flow, are normally compressible, with normal phasic flow and/or augmentation response. The interrogated calf veins are patent. Right superficial veins: Unremarkable. No thrombus in the saphenofemoral junction. Left deep veins: Unremarkable. No DVT in the left common femoral, femoral, proximal deep femoral or popliteal veins. The veins demonstrate normal color flow, are normally compressible, with normal phasic flow and/or augmentation response. The interrogated calf veins are patent. Left superficial veins: Unremarkable. No thrombus in the saphenofemoral junction. Soft tissues: Diffuse subcutaneous fat stranding noted, most prominent from the knees distally. No loculated fluid collection. No popliteal cyst. IMPRESSION: 1. No evidence for deep vein thrombosis involving the bilateral lower extremities. 2. Bilateral subcutaneous edema. Electronically signed by: Pato Aldana MD 01/21/25 21:16 PM Chest X-Ray 01/23/25 14:55 XR chest 1V portable CLINICAL HISTORY: Post Pleurx placement COMPARISON STUDY: 01/21/2025 FINDINGS: There is stable mild cardiomegaly without pulmonary vascular congestion. There is an interval right pleural catheter at the right base. There is interval resolution of the prior right lung base opacity. No pneumothorax. There is stable hazy opacity at the left base consistent with consolidation and pleural effusion. IMPRESSION: No pneumothorax. ACT 112: Negative or not required by law. Electronically signed by: Oneil Kirby M.D. 01/23/2025 3:24 PM PG Care Time/CCT Total # of Minutes Spent Total Time Spent with Patient: Total time spent is greater than 50% in coordination of care (as documented) at patient's floor/unit and/or counseling patient: I spent 50 minutes overall addressing this case: 5 min in medical data review/discussion with referring provider(s) and/or preparation for the visit 25 min in direct interaction with the patient/exam 00 min in Advance Care Planning/Goals of Care discussions as detailed above in note (must be >16min) 10 min in subsequent review and synthesis of assessment and plan 10 min communicating with other providers regarding the patient's case:primary team, nursing, care mgt [place] [address] SUB INP/OBS CARE 3/50MIN Patient Type Established History Comprehensive Exam Comprehensive Medical Decision Making High Complexity Diagnoses Dyspnea and respiratory abnormalities R06.00; R06.89 Cough R05.9 Cancer related pain G89.3 Palliative care by specialist Z51.5 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
[2025-01-25 07:56] LABS: Hematocrit (blood only) 20.4 % (37.0-47.0); Hemoglobin 6.9 g/dl (12.0-16.0); Mean Corpuscular Hemoglobin 28.3 pg (25.0-34.0); Mean Corpuscular Hgb Conc 33.8 g/dL (32.0-36.0); Mean Corpuscular Volume 83.6 fL (80.0-100.0); Mean Platelet Volume 11.8 fL (9.4-12.4); Platelet Count 68 K/uL (130-400); RDW Standard Deviation 49.2 fL (36.4-46.3); Red Blood Count 2.44 M/uL (4.20-5.40); White Blood Count 0.64 K/ul (4.8-10.8)
[2025-01-25 08:13] LABS: Albumin Globulin Ratio 0.8 (0.9-2); Albumin Level 1.9 gm/dl (3.4-5.0); BUN Creatinine Ratio 37.4 (10-20); Bilirubin,Total 1.1 mg/dl (0.2-1.0); Calcium 6.9 mg/dl (8.6-10.3); Creatinine Clr Calc Pharmacy 43.4 ml/min; Globulin 2.4 gm/dl (2.5-4.0); Magnesium 2.1 mg/dl (1.7-2.4); Potassium 3.9 mmol/L (3.5-5.1); Total Protein 4.3 gm/dl (6.0-8.3)
[2025-01-25 08:39] LABS: ANTI-Xa, UFH(UnfractionatedHep 0.26 IU/ml (0.3-0.7)
--- NOTE | 2025-01-25 08:49 | Pharmacy Report ---
Pharmacy Glycemic Short Note 2 - Date of Service January 25, 2025 - Glycemic Short BSG Results (Last 24 hours): 01/24/25 01/24/25 01/24/25 11:31 16:17 21:13 Glucose POC Glucose 207 H 120 H 112 H 01/25/25 01/25/25 07:26 07:37 Glucose 115 H POC Glucose 137 H OUTPATIENT ANTIDIABETIC REGIMEN: * Lantus 16 units Q AM * Humalog 4 units TID w/ meals * A1c = 7.5% 10/31/24 ASSESSMENT: 01/25/25: * Blood sugars reasonably controlled yesterday w/ hyperglycemia at lunchtime (207 mg/dL) * Fasting blood sugar has improved over last couple of days with Lantus 10 units (will continue) * Remains on heparin gtt (mixed in dextrose) and Zosyn * Do not anticipate any changes to glycemic regimen today 01/23/25: * Type 2 diabetic admitted to ICU for hypotension, acute blood loss following thrombectomy for RLE ischemia. Glycemic consult placed last evening * Patient not requiring pressors this AM and being downgraded from ICU status * BSGs fairly well controlled. Initial insulin orders placed yesterday are r easonable starting points based upon "moderate" stress wt-based dosing and outpt insulin regimen. Will continue with these initial doses for now and adjust based upon BSG trends. PLAN FOR INPATIENT GLYCEMIC CONTROL: * Basal insulin * Lantus 10 units SQ Q AM * Bolus insulin * NovoLog per scale ACHS or Q6hrs while NPO * Goal Range: Low 110 mg/dL - High 140 mg/dL * Correction Factor: 30 mg/dL/unit * Nutritional / Prandial insulin per carb ratio of 1 unit per 10 grams CHO consumed
[2025-01-25 09:19] LABS: Polychromasia 1+; Target Cells 1+
[2025-01-25 09:21] LABS: Immature Granulocytes # (auto) 0.01 K/uL (0.01-0.20); Immature Granulocytes % (auto) 1.6 %; Lymphocytes # (auto) 0.34 K/uL (1.20-3.40); Lymphocytes % (auto) 53.1 %; Monocytes # (auto) 0.21 K/uL (0.11-0.59); Monocytes % (auto) 32.8 %; Neutrophils # (auto) 0.08 K/uL (1.40-6.50); Neutrophils % (auto) 12.5 %
--- NOTE | 2025-01-25 10:20 | Hospitalist Progress Note ---
Date of Service January 25, 2025 Assessment & Plan (1) Vascular occlusion: Plan: Presented with pain, pallor and poikilothermia of RLE into foot. Possible vascular occlusion noted on imaging involving mid to distal anterior tibial artery, peroneal and posterior tibia arteries, dorsalis pedis arteries. Over read by vascular surgery of CTA aorta with runoff-with complete R iliac occlusion and infrapop occlusions with minimal runoff to foot. Clinically, foot is ischemic. She was started on a heparin drip and went urgently with vascular surgery on 01/22 for angiography and thrombectomy. An old clot was removed from the right iliac with restored blood flow and some clot was removed from the right leg, however no flow was able to be restored to the right foot. It seemed this had likely been going on for longer than initially thought. Developed bleeding from right groin site through wound VAC placed due to excessive serous drainage on closure. 300 mL EBL during surgery and another 500 mL EBL in the wound vacuum postoperatively. Had brief hypotension which responded to IV fluid bolus and was transfused 1 unit PRBCs on 01/22 Never needed vasopressors and is now stabilized-downgraded out of ICU on 01/23 Blood pressures remain normal but hemoglobin slowly dropping again to 7.3 from wound vacuum and on heparin drip. Hemoglobin also dropping from recent chemotherapy -Continue heparin drip and follow anti-Xa levels -Follow CBC and transfuse if has active bleeding and hemoglobin less than 7-8 -Continue pain control with Tylenol, and change morphine to IV Dilaudid as morphine ineffective -Vascular Surgery Consultation appreciated-will likely need an AKA of the RLE early next week unless decides to move towards comfort measures only/hospice -Continue empiric Zosyn to prevent infection of the ischemic leg (2) Primary cancer of ovary with widespread metastatic disease: Plan: Patient with diffusely metastatic ovarian cancer with pleural effusions and ascites. Recently started on Chemotherapy-completed 1 cycle and had plan for debulking surgery after first 3 cycles of chemotherapy. With impending leg amputation, chemotherapy would have to be delayed. Appreciate palliative medicine consultation. Appreciate hematology/oncology recommendations -Check [id number] trending downward, patient and her sister are more amenable to undergoing amputation with the hopes to resume chemotherapy in the future -Plan for IR paracentesis due to significant ascites and abdominal distention when more stable-does not need for now -Pleurx catheter placement per pulmonology on 01/23-this has improved her dyspnea -Continue to follow blood counts which are now dropping from chemotherapy-she is now neutropenic-give Neupogen 480 mcg SQ daily x 3 days -Transfuse for hemoglobin less than 7. Hold heparin drip if platelets less than 50K and continuing to have blood from the wound vacuum -Follow CBC, CMP -Palliative medicine following-patient and her sister are considering moving towards comfort measures only rather than leg amputation (3) Elevated LFTs: Plan: Total bilirubin, AST, ALT, and alkaline phosphatase all elevated but continue to be trending downward. Most likely side effect of recent chemotherapy. Liver with dilated intra and extrahepatic ducts on CT, history of cholecystectomy. Could get MRCP but unstable at this time to do so. No evidence of cirrhosis. INR is elevated here and during last admission and improved with vitamin K supplementation and is likely from nutritional deficiencies. 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 Her sister is going to try to come up from [place] on 01/25 Admission and Anticipated Discharge Date Admission Date: January 22, 2025 Subjective Pt states she has not yet made a decision on moving forward with amputation vs comfort care. Review of Systems Review of Systems: CONST: Negative for fever, body aches and chills. HENT: Negative for neck pain/stiffness, headache, congestion, sore throat, swelling. EYES: Negative for discharge/pain or vision changes. RESP: Negative for cough/hemoptysis and shortness of breath. CV: Negative chest pain, difficulty breathing, palpitations. ABD: Negative pain, nausea, vomiting. : Negative increase frequency, dysuria, blood in urine or stool. MUSC: Negative for muscle aches, edema. SKIN: Negative rash, lesions/sores. NEURO: Negative headache, dizziness, weakness. Physical Exam Physical Exam: GENERAL APPEARANCE NAD, activity normal for age, well developed/ well nourished, no cyanosis, pallor, or diaphoresis. EYES lids/conjunctiva normal. EARS/NOSE/THROAT Mucous membranes moist, nares normal, lips/teeth normal uvula midline without oral pharyngeal erythema, exudate or swelling TMs normal bilaterally. No lymphangitis/lymphedema. HEAD/NECK normocephalic atraumatic, no facial trauma, neck is supple. RESPIRATORY respiratory effort normal, speaks in full sentences, no tripod position, no accessory muscle use. Lungs clear to auscultation without rhonchi, wheezes, rales CARDIAC Regular rate and rhythm, no edema. ABDOMINAL Soft, ND/NT. No evidence of fluid wave. No pulsatile masses on exam, rebound tenderness, Almeida sign or pain over Mcburney's point. MUSCLES/EXTREMITIES No abnormal range of motion, no swelling. SKIN Warm, pink and dry. No rashes, dermatoses, petechiae or lesions. NEUROLOGICAL Speech is clear and appropriate. Normal level of consciousness. Gait and coordination are normal. 5/5 strength in all extremities. PSYCH Normal mood and affect. Judgement/competence is appropriate Results & Data Results & Data Vital Signs (Past 12 Hours) Vital Signs Temp Pulse Pulse Resp BP Pulse Ox O2 Del Method 01/25/25 07:43 36.5 C 19 107/69 96 Nasal Cannula 01/25/25 07:38 87 16 98 Nasal Cannula 01/25/25 01:53 37.2 C 98 H 23 119/77 92 Nasal Cannula 01/25/25 01:23 97 H 20 92 Nasal Cannula 01/25/25 00:33 102 H 01/24/25 23:18 37.7 C H 102 H 28 H 105/67 92 Nasal Cannula O2 Flow Rate 01/25/25 07:43 1 01/25/25 07:38 1 01/25/25 01:53 1 01/25/25 01:23 1 01/25/25 00:33 01/24/25 23:18 3 PG Care Time/CCT Total # of Minutes Spent Total Time Spent with Patient: Total time spent is greater than 50% in coordination of care (as documented) at patient's floor/unit and/or counseling patient: Coding Level of Care Code 92561 SUB INP/OBS CARE MIN Diagnoses Vascular occlusion I99.8 Primary cancer of ovary with widespread metastatic disease C56.9; C80.0 Laterality: unspecified laterality Elevated LFTs R79.89 Pleural effusion J90 (2) Primary cancer of ovary with widespread metastatic disease Laterality: unspecified laterality Qualified Code(s): C56.9 - Malignant neoplasm of unspecified ovary; C80.0 - Disseminated malignant neoplasm, unspecified
--- NOTE | 2025-01-25 10:35 | Pulmonology Progress Note ---
Date of Service January 25, 2025 Assessment & Plan (1) Ischemic foot: (2) Peritoneal carcinomatosis: (3) Ascites: Ascites type: other type Qualified Code(s): R18.8 - Other ascites (4) Pleural effusion: Plan Impression: 69-year-old female with history of asthma now with widely metastatic ovarian carcinoma status postchemotherapy with malignant pleural effusions and malignant ascites admitted with ischemic lower extremity. Status post Pleurx placement on the left 01/23/2025 for palliative measures. Recommendations: 1. Malignant pleural effusions: Pleurx drained for 350 cc. Patient has no pulmonary symptoms for now. Would defer placement to the alternative side as the patient appears to be actively dying Patient condition appears to be declining. Focusing on comfort care measures would be entirely appropriate. Pulmonary will sign off. Feel free to contact us with questions or concerns Admission and Anticipated Discharge Date Admission Date: January 22, 2025 Subjective Patient seen and examined. EMR reviewed. The patient appears premorbid. Her voice is very weak. She is complaining of increasing pain in her right foot. She has no respiratory complaints Review of Systems 2 Review of Systems: Unobtainable due to reduced consciousness Physical Exam 2 Constitutional: + ill appearing, + obese, + frail appear ing and + lethargic; not in distress Respiratory: normal respiratory effort; no respiratory distress A uscultation: + diminished lung sounds and + crackles; no wheezes Cardiovascular: Rate/Rhythm: regular rate and regular rhythm Extremities: + pedal edema and + edema (+4); + abnormal capillary refill (RLE mottled, no refill) Gastrointestinal (Abdomen): Inspection/Auscultation: + abdominal edema P ercussion/Palpation: abdomen soft and + ascites; abdomen nontender Skin: + mottling (Right lower extremity cold t o the knee with purpura extending up to the kne) Neurologic: moves all extremities (RLE toes decreased movement), awake and + confused (mild, slow to process); no focal motor deficits Psychiatric: Orientation: alert, oriented to person, oriented to place and cooperative; + not oriented to time Results & Data Results & Data Vital Signs (Past 12 Hours) Vital Signs Temp Pulse Pulse Resp BP Pulse Ox O2 Del Method 01/25/25 07:43 36.5 C 19 107/69 96 Nasal Cannula 01/25/25 07:38 87 16 98 Nasal Cannula 01/25/25 01:53 37.2 C 98 H 23 119/77 92 Nasal Cannula 01/25/25 01:23 97 H 20 92 Nasal Cannula 01/25/25 00:33 102 H 01/24/25 23:18 37.7 C H 102 H 28 H 105/67 92 Nasal Cannula O2 Flow Rate 01/25/25 07:43 1 01/25/25 07:38 1 01/25/25 01:53 1 01/25/25 01:23 1 01/25/25 00:33 01/24/25 23:18 3 Laboratory Results 01/25/25 07:26 01/25/25 07:26 PG Care Time/CCT Total # of Minutes Spent Total Time Spent with Patient: Total time spent is greater than 50% in coordination of care (as documented) at patient's floor/unit and/or counseling patient: Coding Level of Care Code 05779 SUB INP/OBS CARE 2/35MIN Diagnoses Ischemic foot I99.8 Peritoneal carcinomatosis C78.6 Ascites R18.8 Ascites type: other type Pleural effusion J90
--- NOTE | 2025-01-25 11:17 | Surgery Progress Note ---
Date of Service January 25, 2025 Assessment & Plan (1) S/P vascular surgery: Plan: Patient with ischemic rle. Due to her overall condition would not do amputation at this time. Best treatment at present would be comfort care and not amputation. will dc wound vac and do daily wet to dry dressing to groin Admission and Anticipated Discharge Date Admission Date: January 22, 2025 Subjective Patient awake. Complains of abdominal and leg pain. Physical Exam Constitutional: WD/WN, vitals as above Respiratory: normal respiratory effort; no respiratory distress Cardiovascular: Vessels: + posterior tibial pulses abnormal (none on right) and + dorsalis pedis pulses abnormal (none on right) Skin: + mottling (right foot), + pallor (right foot) and + incision (wound clean, no necrotic tissue seen) Neurologic: + abnormal sensation to monofilament (ri ght foot) and + does not move all extremities (does not move right foot) Psychiatric: Orientation: alert Results & Data Vital Signs (Past 12 Hours) Vital Signs Temp Pulse Pulse Resp BP Pulse Ox O2 Del Method 01/25/25 08:00 Room Air 01/25/25 07:43 36.5 C 19 107/69 96 Nasal Cannula 01/25/25 07:38 87 16 98 Nasal Cannula 01/25/25 01:53 37.2 C 98 H 23 119/77 92 Nasal Cannula 01/25/25 01:23 97 H 20 92 Nasal Cannula 01/25/25 00:33 102 H 01/24/25 23:18 37.7 C H 102 H 28 H 105/67 92 Nasal Cannula O2 Flow Rate 01/25/25 08:00 01/25/25 07:43 1 01/25/25 07:38 1 01/25/25 01:53 1 01/25/25 01:23 1 01/25/25 00:33 01/24/25 23:18 3
[2025-01-25] MEDS: HYDROmorphone INJ 0.5 MG/0.5 ML SYR IV PRN (11:39)
[2025-01-25 15:23] LABS: ANTI-Xa, UFH(UnfractionatedHep 0.24 IU/ml (0.3-0.7)
[2025-01-26 06:20] LABS: ANTI-Xa, UFH(UnfractionatedHep 0.15 IU/ml (0.3-0.7)
[2025-01-26] MEDS: HEPARIN SOD (PORCINE) 1000 UNIT/ML IV ONE ×2 (08:19→16:29)
[2025-01-26] MEDS ORDERED: LORazepam 2 MG/1 ML VIAL IV PRN (09:41)
--- NOTE | 2025-01-26 09:49 | Hospitalist Progress Note ---
Date of Service January 26, 2025 Assessment & Plan (1) Vascular occlusion: Plan: Presented with pain, pallor and poikilothermia of RLE into foot. Possible vascular occlusion noted on imaging involving mid to distal anterior tibial artery, peroneal and posterior tibia arteries, dorsalis pedis arteries. Over read by vascular surgery of CTA aorta with runoff-with complete R iliac occlusion and infrapop occlusions with minimal runoff to foot. Clinically, foot is ischemic. She was started on a heparin drip and went urgently with vascular surgery on 01/22 for angiography and thrombectomy. An old clot was removed from the right iliac with restored blood flow and some clot was removed from the right leg, however no flow was able to be restored to the right foot. It seemed this had likely been going on for longer than initially thought. Developed bleeding from right groin site through wound VAC placed due to excessive serous drainage on closure. 300 mL EBL during surgery and another 500 mL EBL in the wound vacuum postoperatively. Had brief hypotension which responded to IV fluid bolus and was transfused 1 unit PRBCs on 01/22 Never needed vasopressors and is now stabilized-downgraded out of ICU on 01/23 Blood pressures remain normal but hemoglobin slowly dropping again to 7.3 from wound vacuum and on heparin drip. Hemoglobin also dropping from recent chemotherapy -Continue heparin drip and follow anti-Xa levels -Follow CBC and transfuse if has active bleeding and hemoglobin less than 7-8 -Continue pain control with Tylenol, and change morphine to IV Dilaudid as morphine ineffective -Vascular Surgery Consultation appreciated-not recommending surgery -Continue empiric Zosyn to prevent infection of the ischemic leg -awaiting patient decision to be made comfort care, she is not ready at this time. (2) Primary cancer of ovary with widespread metastatic disease: Plan: Patient with diffusely metastatic ovarian cancer with pleural effusions and ascites. Recently started on Chemotherapy-completed 1 cycle and had plan for debulking surgery after first 3 cycles of chemotherapy. With impending leg amputation, chemotherapy would have to be delayed. Appreciate palliative medicine consultation. Appreciate hematology/oncology recommendations -Check [id number] trending downward, patient and her sister are more amenable to undergoing amputation with the hopes to resume chemotherapy in the future -Plan for IR paracentesis due to significant ascites and abdominal distention when more stable-does not need for now -Pleurx catheter placement per pulmonology on 01/23-this has improved her dyspnea -Continue to follow blood counts which are now dropping from chemotherapy-she is now neutropenic-give Neupogen 480 mcg SQ daily x 3 days -Transfuse for hemoglobin less than 7. Hold heparin drip if platelets less than 50K and continuing to have blood from the wound vacuum -Follow CBC, CMP -Palliative medicine following-patient and her sister are considering moving towards comfort measures only rather than leg amputation -Pt is not ready to accept comfort care at this time -will continue to follow with sister who is urging her to reconsider (3) Elevated LFTs: Plan: Total bilirubin, AST, ALT, and alkaline phosphatase all elevated but continue to be trending downward. Most likely side effect of recent chemotherapy. Liver with dilated intra and extrahepatic ducts on CT, history of cholecystectomy. Could get MRCP but unstable at this time to do so. No evidence of cirrhosis. INR is elevated here and during last admission and improved with vitamin K supplementation and is likely from nutritional deficiencies. 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 Her sister has arrived and is here for the next week. Admission and Anticipated Discharge Date Admission Date: January 22, 2025 Subjective Spoke to patient with sister at bedside. Pt is not accepting the reality of comfort care at this time. She states she is anxious. Review of Systems Review of Systems: CONST: Negative for fever, body aches and chills. HENT: Negative for neck pain/stiffness, headache, congestion, sore throat, swelling. EYES: Negative for discharge/pain or vision changes. RESP: Negative for cough/hemoptysis and shortness of breath. CV: Negative chest pain, difficulty breathing, palpitations. ABD: Negative pain, nausea, vomiting. : Negative increase frequency, dysuria, blood in urine or stool. MUSC: Negative for muscle aches, edema. SKIN: Negative rash, lesions/sores. NEURO: Negative headache, dizziness, weakness. Physical Exam Physical Exam: GENERAL APPEARANCE NAD, activity normal for age, well developed/ well nourished, no cyanosis, pallor, or diaphoresis. EYES lids/conjunctiva normal. EARS/NOSE/THROAT Mucous membranes moist, nares normal, lips/teeth normal uvula midline without oral pharyngeal erythema, exudate or swelling TMs normal bilaterally. No lymphangitis/lymphedema. HEAD/NECK normocephalic atraumatic, no facial trauma, neck is supple. RESPIRATORY respiratory effort normal, speaks in full sentences, no tripod position, no accessory muscle use. Lungs clear to auscultation without rhonchi, wheezes, rales CARDIAC Regular rate and rhythm, no edema. ABDOMINAL Soft, ND/NT. No evidence of fluid wave. No pulsatile masses on exam, rebound tenderness, Almeida sign or pain over Mcburney's point. MUSCLES/EXTREMITIES No abnormal range of motion, no swelling. SKIN Warm, pink and dry. No rashes, dermatoses, petechiae or lesions. NEUROLOGICAL Speech is clear and appropriate. Normal level of consciousness. Gait and coordination are normal. 5/5 strength in all extremities. PSYCH Normal mood and affect. Judgement/competence is appropriate Results & Data Results & Data Vital Signs (Past 12 Hours) Vital Signs Temp Pulse Pulse Resp BP Pulse Ox O2 Del Method 01/26/25 08:44 Room Air 01/26/25 07:10 36.9 C 83 20 107/65 93 Room Air 01/26/25 02:59 36.7 C 87 18 148/70 H 95 Room Air 01/25/25 22:46 37.0 C 89 18 106/63 94 Room Air 01/25/25 22:33 91 H 01/25/25 22:00 Room Air PG Care Time/CCT Total # of Minutes Spent Total Time Spent with Patient: Total time spent is greater than 50% in coordination of care (as documented) at patient's floor/unit and/or counseling patient: Coding Level of Care Code 09924 SUB INP/OBS CARE 2/35MIN Diagnoses Vascular occlusion I99.8 Primary cancer of ovary with widespread metastatic disease C56.9; C80.0 Laterality: unspecified laterality Elevated LFTs R79.89 Pleural effusion J90 (2) Primary cancer of ovary with widespread metastatic disease Laterality: unspecified laterality Qualified Code(s): C56.9 - Malignant neoplasm of unspecified ovary; C80.0 - Disseminated malignant neoplasm, unspecified
[2025-01-26 14:45] LABS: ANTI-Xa, UFH(UnfractionatedHep 0.18 IU/ml (0.3-0.7)
[2025-01-26 22:13] LABS: ANTI-Xa, UFH(UnfractionatedHep 0.21 IU/ml (0.3-0.7)
[2025-01-27 05:07] LABS: ANTI-Xa, UFH(UnfractionatedHep 0.21 IU/ml (0.3-0.7)
[2025-01-27] MEDS: ALBUT/IPRATROP 3MG/0.5MG NEB 3 ML VIAL INH PRN (08:15)
--- NOTE | 2025-01-27 10:36 | Hospitalist Progress Note ---
Date of Service January 27, 2025 Assessment & Plan (1) Vascular occlusion: Plan: Presented with pain, pallor and poikilothermia of RLE into foot. Possible vascular occlusion noted on imaging involving mid to distal anterior tibial artery, peroneal and posterior tibia arteries, dorsalis pedis arteries. Over read by vascular surgery of CTA aorta with runoff-with complete R iliac occlusion and infrapop occlusions with minimal runoff to foot. Clinically, foot is ischemic. She was started on a heparin drip and went urgently with vascular surgery on 01/22 for angiography and thrombectomy. An old clot was removed from the right iliac with restored blood flow and some clot was removed from the right leg, however no flow was able to be restored to the right foot. It seemed this had likely been going on for longer than initially thought. Developed bleeding from right groin site through wound VAC placed due to excessive serous drainage on closure. 300 mL EBL during surgery and another 500 mL EBL in the wound vacuum postoperatively. Had brief hypotension which responded to IV fluid bolus and was transfused 1 unit PRBCs on 01/22 Never needed vasopressors and is now stabilized-downgraded out of ICU on 01/23 Blood pressures remain normal but hemoglobin slowly dropping again to 7.3 from wound vacuum and on heparin drip. Hemoglobin also dropping from recent chemotherapy -Continue heparin drip and follow anti-Xa levels -Follow CBC and transfuse if has active bleeding and hemoglobin less than 7-8 -Continue pain control with Tylenol, and change morphine to IV Dilaudid as morphine ineffective -Vascular Surgery Consultation appreciated-not recommending surgery -Continue empiric Zosyn to prevent infection of the ischemic leg -awaiting patient decision to be made comfort care, she is not ready at this time. -Follow up with palliative care on Sunday 01/28 (2) Primary cancer of ovary with widespread metastatic disease: Plan: Patient with diffusely metastatic ovarian cancer with pleural effusions and ascites. Recently started on Chemotherapy-completed 1 cycle and had plan for debulking surgery after first 3 cycles of chemotherapy. With impending leg amputation, chemotherapy would have to be delayed. Appreciate palliative medicine consultation. Appreciate hematology/oncology recommendations -Check [id number] trending downward, patient and her sister are more amenable to undergoing amputation with the hopes to resume chemotherapy in the future -Plan for IR paracentesis due to significant ascites and abdominal distention when more stable-does not need for now -Pleurx catheter placement per pulmonology on 01/23-this has improved her dyspnea -Continue to follow blood counts which are now dropping from chemotherapy-she is now neutropenic-give Neupogen 480 mcg SQ daily x 3 days -Transfuse for hemoglobin less than 7. Hold heparin drip if platelets less than 50K and continuing to have blood from the wound vacuum -Follow CBC, CMP -Palliative medicine following-patient and her sister are considering moving towards comfort measures only rather than leg amputation -Pt is not ready to accept comfort care at this time -will continue to follow with sister who is urging her to reconsider (3) Elevated LFTs: Plan: Total bilirubin, AST, ALT, and alkaline phosphatase all elevated but continue to be trending downward. Most likely side effect of recent chemotherapy. Liver with dilated intra and extrahepatic ducts on CT, history of cholecystectomy. Could get MRCP but unstable at this time to do so. No evidence of cirrhosis. INR is elevated here and during last admission and improved with vitamin K supplementation and is likely from nutritional deficiencies. 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 Her sister has arrived and is here for the next week. Admission and Anticipated Discharge Date Admission Date: January 22, 2025 Subjective Spoke to patient with sister at bedside. Pt still is not accepting comfort care at this time. Review of Systems Review of Systems: CONST: Negative for fever, body aches and chills. HENT: Negative for neck pain/stiffness, headache, congestion, sore throat, swelling. EYES: Negative for discharge/pain or vision changes. RESP: Negative for cough/hemoptysis and shortness of breath. CV: Negative chest pain, difficulty breathing, palpitations. ABD: Negative pain, nausea, vomiting. : Negative increase frequency, dysuria, blood in urine or stool. MUSC: Negative for muscle aches, edema. SKIN: Negative rash, lesions/sores. NEURO: Negative headache, dizziness, weakness. Physical Exam Physical Exam: GENERAL APPEARANCE NAD, activity normal for age, well developed/ well nourished, no cyanosis, pallor, or diaphoresis. EYES lids/conjunctiva normal. EARS/NOSE/THROAT Mucous membranes moist, nares normal, lips/teeth normal uvula midline without oral pharyngeal erythema, exudate or swelling TMs normal bilaterally. No lymphangitis/lymphedema. HEAD/NECK normocephalic atraumatic, no facial trauma, neck is supple. RESPIRATORY respiratory effort normal, speaks in full sentences, no tripod position, no accessory muscle use. Lungs clear to auscultation without rhonchi, wheezes, rales CARDIAC Regular rate and rhythm, no edema. ABDOMINAL Soft, ND/NT. No evidence of fluid wave. No pulsatile masses on exam, rebound tenderness, Almeida sign or pain over Mcburney's point. MUSCLES/EXTREMITIES No abnormal range of motion, no swelling. SKIN Warm, pink and dry. No rashes, dermatoses, petechiae or lesions. NEUROLOGICAL Speech is clear and appropriate. Normal level of consciousness. Gait and coordination are normal. 5/5 strength in all extremities. PSYCH Normal mood and affect. Judgement/competence is appropriate Results & Data Results & Data Vital Signs (Past 12 Hours) Vital Signs Temp Pulse Resp BP Pulse Ox O2 Del Method 01/27/25 08:17 78 20 96 Room Air 01/27/25 07:06 36.5 C 79 16 122/74 97 Room Air 01/26/25 21:50 Room Air PG Care Time/CCT Total # of Minutes Spent Total Time Spent with Patient: Total time spent is greater than 50% in coordination of care (as documented) at patient's floor/unit and/or counseling patient: Coding Level of Care Code 77435 SUB INP/OBS CARE 2/35MIN Diagnoses Vascular occlusion I99.8 Primary cancer of ovary with widespread metastatic disease C56.9; C80.0 Laterality: unspecified laterality Elevated LFTs R79.89 Pleural effusion J90 (2) Primary cancer of ovary with widespread metastatic disease Laterality: unspecified laterality Qualified Code(s): C56.9 - Malignant neoplasm of unspecified ovary; C80.0 - Disseminated malignant neoplasm, unspecified
[2025-01-27 12:00] LABS: ANTI-Xa, UFH(UnfractionatedHep 0.22 IU/ml (0.3-0.7)
[2025-01-27 19:19] LABS: ANTI-Xa, UFH(UnfractionatedHep 0.18 IU/ml (0.3-0.7)
[2025-01-27] MEDS ORDERED: Nursing to Pharmacy Communication SCH (19:30)
[2025-01-27] MEDS: HEPARIN SOD (PORCINE) 1000 UNIT/ML IV ONE (21:03)
--- NOTE | 2025-01-28 09:30 | Hospitalist Progress Note ---
Date of Service January 28, 2025 Assessment & Plan (1) Vascular occlusion: Plan: Presented with pain, pallor and poikilothermia of RLE into foot. Possible vascular occlusion noted on imaging involving mid to distal anterior tibial artery, peroneal and posterior tibia arteries, dorsalis pedis arteries. Over read by vascular surgery of CTA aorta with runoff-with complete R iliac occlusion and infrapop occlusions with minimal runoff to foot. Clinically, foot is ischemic. She was started on a heparin drip and went urgently with vascular surgery on 01/22 for angiography and thrombectomy. An old clot was removed from the right iliac with restored blood flow and some clot was removed from the right leg, however no flow was able to be restored to the right foot. It seemed this had likely been going on for longer than initially thought. Developed bleeding from right groin site through wound VAC placed due to excessive serous drainage on closure. 300 mL EBL during surgery and another 500 mL EBL in the wound vacuum postoperatively. Had brief hypotension which responded to IV fluid bolus and was transfused 1 unit PRBCs on 01/22 Never needed vasopressors and is now stabilized-downgraded out of ICU on 01/23 Blood pressures remain normal but hemoglobin slowly dropping again to 7.3 from wound vacuum and on heparin drip. Hemoglobin also dropping from recent chemotherapy -Continue heparin drip and follow anti-Xa levels -Follow CBC and transfuse if has active bleeding and hemoglobin less than 7-8 -Continue pain control with Tylenol, and change morphine to IV Dilaudid as morphine ineffective -Vascular Surgery Consultation appreciated-not recommending surgery -Continue empiric Zosyn to prevent infection of the ischemic leg -awaiting patient decision to be made comfort care, she is not ready at this time. -Follow up with palliative care on Sunday 01/28 (2) Primary cancer of ovary with widespread metastatic disease: Plan: Patient with diffusely metastatic ovarian cancer with pleural effusions and ascites. Recently started on Chemotherapy-completed 1 cycle and had plan for debulking surgery after first 3 cycles of chemotherapy. With impending leg amputation, chemotherapy would have to be delayed. Appreciate palliative medicine consultation. Appreciate hematology/oncology recommendations -Check [id number] trending downward, patient and her sister are more amenable to undergoing amputation with the hopes to resume chemotherapy in the future -Plan for IR paracentesis due to significant ascites and abdominal distention when more stable-does not need for now -Pleurx catheter placement per pulmonology on 01/23-this has improved her dyspnea -Continue to follow blood counts which are now dropping from chemotherapy-she is now neutropenic-give Neupogen 480 mcg SQ daily x 3 days -Transfuse for hemoglobin less than 7. Hold heparin drip if platelets less than 50K and continuing to have blood from the wound vacuum -Follow CBC, CMP -Palliative medicine following-patient and her sister are considering moving towards comfort measures only rather than leg amputation -Pt is not ready to accept comfort care at this time -will continue to follow with sister who is urging her to reconsider (3) Elevated LFTs: Plan: Total bilirubin, AST, ALT, and alkaline phosphatase all elevated but continue to be trending downward. Most likely side effect of recent chemotherapy. Liver with dilated intra and extrahepatic ducts on CT, history of cholecystectomy. Could get MRCP but unstable at this time to do so. No evidence of cirrhosis. INR is elevated here and during last admission and improved with vitamin K supplementation and is likely from nutritional deficiencies. 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 Her sister has arrived and is here for the next week. Admission and Anticipated Discharge Date Admission Date: January 22, 2025 Subjective Pt still refusing comfort care. States she "is not ready." Review of Systems Review of Systems: CONST: Negative for fever, body aches and chills. HENT: Negative for neck pain/stiffness, headache, congestion, sore throat, swelling. EYES: Negative for discharge/pain or vision changes. RESP: Negative for cough/hemoptysis and shortness of breath. CV: Negative chest pain, difficulty breathing, palpitations. ABD: Negative pain, nausea, vomiting. : Negative increase frequency, dysuria, blood in urine or stool. MUSC: Negative for muscle aches, edema. SKIN: Negative rash, lesions/sores. NEURO: Negative headache, dizziness, weakness. Physical Exam Physical Exam: GENERAL APPEARANCE NAD, activity normal for age, well developed/ well nourished, no cyanosis, pallor, or diaphoresis. EYES lids/conjunctiva normal. EARS/NOSE/THROAT Mucous membranes moist, nares normal, lips/teeth normal uvula midline without oral pharyngeal erythema, exudate or swelling TMs normal bilaterally. No lymphangitis/lymphedema. HEAD/NECK normocephalic atraumatic, no facial trauma, neck is supple. RESPIRATORY respiratory effort normal, speaks in full sentences, no tripod position, no accessory muscle use. Lungs clear to auscultation without rhonchi, wheezes, rales CARDIAC Regular rate and rhythm, no edema. ABDOMINAL Soft, ND/NT. No evidence of fluid wave. No pulsatile masses on exam, rebound tenderness, Almeida sign or pain over Mcburney's point. MUSCLES/EXTREMITIES No abnormal range of motion, no swelling. SKIN Warm, pink and dry. No rashes, dermatoses, petechiae or lesions. NEUROLOGICAL Speech is clear and appropriate. Normal level of consciousness. Gait and coordination are normal. 5/5 strength in all extremities. PSYCH Normal mood and affect. Judgement/competence is appropriate Results & Data Results & Data Vital Signs (Past 12 Hours) Vital Signs Temp Pulse Resp BP Pulse Ox O2 Del Method 01/28/25 08:20 Room Air 01/28/25 07:31 36.7 C 88 17 138/78 95 Room Air PG Care Time/CCT Total # of Minutes Spent Total Time Spent with Patient: Total time spent is greater than 50% in coordination of care (as documented) at patient's floor/unit and/or counseling patient: Coding Level of Care Code 57137 SUB INP/OBS CARE 2/35MIN Diagnoses Vascular occlusion I99.8 Primary cancer of ovary with widespread metastatic disease C56.9; C80.0 Laterality: unspecified laterality Elevated LFTs R79.89 Pleural effusion J90 (2) Primary cancer of ovary with widespread metastatic disease Laterality: unspecified laterality Qualified Code(s): C56.9 - Malignant neoplasm of unspecified ovary; C80.0 - Disseminated malignant neoplasm, unspecified
--- NOTE | 2025-01-28 10:13 | Pharmacy Report ---
Pharmacy Glycemic Short Note 2 - Date of Service January 28, 2025 - Glycemic Short BSG Results (Last 24 hours): 01/27/25 01/27/25 01/27/25 11:56 16:45 21:03 POC Glucose 233 H 173 H 127 H 01/28/25 07:50 POC Glucose 141 H OUTPATIENT ANTIDIABETIC REGIMEN: * Lantus 16 units Q AM * Humalog 4 units TID w/ meals * A1c = 7.5% 10/31/24 ASSESSMENT: 01/28/25: * Patient required at total of 16 units of insulin yesterday (10 units were basal and 6 units were bolus). Lunch and supper BSGs were elevated (233- 173mg/dL) but responded well to correction and at HS was 127mg/dL * Fasting BSG was 141mg/dL this morning. To remain on Lantus 10 units SQ daily. Lunch BSG was 97mg/dL. Patient does not appear to be eating much so loosened the CR. * She remains on a heparin drip and Zosyn (both mixed in dextrose). 01/25/25: * Blood sugars reasonably controlled yesterday w/ hyperglycemia at lunchtime (207 mg/dL) * Fasting blood sugar has improved over last couple of days with Lantus 10 units (will continue) * Remains on heparin gtt (mixed in dextrose) and Zosyn * Do not anticipate any changes to glycemic regimen today 01/23/25: * Type 2 diabetic admitted to ICU for hypotension, acute blood loss following thrombectomy for RLE ischemia. Glycemic consult placed last evening * Patient not requiring pressors this AM and being downgraded from ICU status * BSGs fairly well controlled. Initial insulin orders placed yesterday are reasonable starting points based upon "moderate" stress wt-based dosing and outpt insulin regimen. Will continue with these initial doses for now and adjust based upon BSG trends. PLAN FOR INPATIENT GLYCEMIC CONTROL: * Basal insulin * Lantus 10 units SQ Q AM * Bolus insulin * NovoLog per scale ACHS or Q6hrs while NPO * Goal Range: Low 110 mg/dL - High 140 mg/dL * Correction Factor: 30 mg/dL/unit * Nutritional / Prandial insulin per carb ratio of 1 unit per 15 grams CHO consumed
[2025-01-28 11:35] LABS: Basophils # (auto) 0.03 K/uL (0.00-0.20); Basophils % (auto) 0.2 %; Eosinophils # (auto) 0.01 K/uL (0.00-0.50); Eosinophils % (auto) 0.1 %; Hematocrit (blood only) 21.8 % (37.0-47.0); Hemoglobin 7.4 g/dl (12.0-16.0); Immature Granulocytes # (auto) 1.18 K/uL (0.01-0.20); Immature Granulocytes % (auto) 7.3 %; Lymphocytes # (auto) 1.39 K/uL (1.20-3.40); Lymphocytes % (auto) 8.7 %; Mean Corpuscular Hemoglobin 28.2 pg (25.0-34.0); Mean Corpuscular Hgb Conc 33.9 g/dL (32.0-36.0); Mean Corpuscular Volume 83.2 fL (80.0-100.0); Mean Platelet Volume 12.3 fL (9.4-12.4); Monocytes # (auto) 0.71 K/uL (0.11-0.59); Monocytes % (auto) 4.4 %; Neutrophils # (auto) 12.74 K/uL (1.40-6.50); Neutrophils % (auto) 79.3 %; Nucleated RBC # (auto) 0.22 K/uL (0.00-0.12); Nucleated RBC % (auto) 1.4 %; Platelet Count 35 K/uL (130-400); Platelet Estimate Signific. Decreased (Normal); Polychromasia 1+; RDW Coefficient of Variation 15.9 % (11.5-14.5); RDW Standard Deviation 48.3 fL (36.4-46.3); Red Blood Count 2.62 M/uL (4.20-5.40); Target Cells 1+; Toxic Granulation 3+; White Blood Count 16.06 K/ul (4.8-10.8)
--- NOTE | 2025-01-28 11:58 | Palliative Care Progress Note ---
Date of Service January 28, 2025 Assessment & Plan (1) Dyspnea and respiratory abnormalities: (2) Cough: (3) Cancer related pain: (4) Primary cancer of ovary with widespread metastatic disease: (5) Ischemic foot: (6) Palliative care by specialist: Plan I will try to call her sister later today after my clinic. At the time of my visit no family was present. Patient is mildly confused and cannot participate in a goals of care discussion. I will be in clinic through this evening and therefore we will try to plan for a family meeting tomorrow with the sister. I will update the chart accordingly after I have reached her. I have updated nursing and the primary team. Thank you for allowing us to participate in the ongoing care of this patient. Please page with any additional concerns. Sandi Kim DNP Director, Palliative Medicine Admission and Anticipated Discharge Date Admission Date: January 22, 2025 Sarwat Nicholson is in bed,semireclined, no family present. She is intermittently confused. White blood cell count recovery noted, today's white blood cells are 16.06 from the prior 0.64. Surgical amputation of the right lower extremity is not an option due to her overall condition. Surgery recommended best treatment at present would be comfort care and not amputation. She continues to receive wet-to-dry dressings to the groin. She remains on empiric Zosyn to prevent infection of the ischemic leg. She continues on heparin drip. 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 She completed cycle one of her chemo and then complications led to this admission. Her CA125 was noted to be 1921 on the repeat done 01/23/2025, prior to this was 2602. Nursing shares that her sister did arrive from [place], however no one was present at the bedside at the time of my visit. I am told her sister stepped out for a couple of hours and will return later today. Review of Systems Review of Systems: Unobtainable due to cognitive status Physical Exam Physical Exam: Elderly female, appears older than stated age, acutely ill, supine in bed. +fatigued, frail appearing, + pallor There is mild bitemporal wasting noted. Respiratory effort mildly increased with a frequent dry but rattly cough. There is no stridor. Lungs are diminished with crackles. No wheeze CV S1-S2, regular rhythm. Abdomen is soft. Bowel sounds are present. +wound vac She is able to move her extremities with +gen weakness. She is not ambulatory Left lower extremity pedal pulse intact, right lower extremity no palpable pulse. Right lower extremity is mottled and cool to touch. BLE 2-3+ edema. Moderately confused Results & Data Vital Signs (Past 12 Hours) Vital Signs Temp Pulse Resp BP Pulse Ox O2 Del Method 01/28/25 08:20 Room Air 01/28/25 07:31 36.7 C 88 17 138/78 95 Room Air Laboratory Results 01/28/25 01/28/25 01/28/25 Range/Units 11:48 10:22 07:50 WBC 16.06 H (4.8-10.8) K/ul RBC 2.62 L (4.20-5.40) M/uL Hgb 7.4 L (12.0-16.0) g/dl Hct 21.8 L (37.0-47.0) % MCV 83.2 (80.0-100.0) fL MCH 28.2 (25.0-34.0) pg MCHC 33.9 (32.0-36.0) g/dL RDW Std Deviation 48.3 H (36.4-46.3) fL RDW Coeff of Sol 15.9 H (11.5-14.5) % Plt Count 35 L (130-400) K/uL MPV 12.3 (9.4-12.4) fL Immature Gran % (Auto) 7.3 % Neut % (Auto) 79.3 % Lymph % (Auto) 8.7 % [place] % (Auto) 4.4 % Eos % (Auto) 0.1 % Baso % (Auto) 0.2 % Neut # (Auto) 12.74 H (1.40-6.50) K/uL Lymph # (Auto) 1.39 (1.20-3.40) K/uL [place] # (Auto) 0.71 H (0.11-0.59) K/uL Eos # (Auto) 0.01 (0.00-0.50) K/uL Baso # (Auto) 0.03 (0.00-0.20) K/uL Immature Gran # (Auto) 1.18 H (0.01-0.20) K/uL Absolute Nucleated RBC 0.22 H (0.00-0.12) K/uL Nucleated RBC % (auto) 1.4 % Neutrophils % (Manual) % Lymphocytes % (Manual) % Monocytes % (Manual) % Eosinophils % (Manual) % Metamyelocytes % (Man) % Neutrophils # (Manual) (1.40-6.50) K/uL Total Absolute Neuts (1.4-6.5) K/uL Lymphocytes # (Manual) (1.2-3.4) K/uL Total Abs Lymphocytes (1.2-3.4) K/uL Monocytes # (Manual) (0.11-0.59) K/uL Eosinophils # (Manual) (0-0.50) K/uL Metamyelocytes # (Man) (0-0) K/uL Hyposegmented Neuts Toxic Granulation 3+ Toxic Vacuolation Platelet Estimate Signific. Decreased L (Normal) Polychromasia 1+ Target Cells 1+ PT (9.0-12.0) Seconds INR (0.9-1.1) APTT (21-31) Seconds PTT Ratio Fibrinogen (184-400) mg/dl Heparin Anti-Xa, Unfract (0.3-0.7) IU/ml Sodium (136-145) mmol/L Potassium (3.5-5.1) mmol/L Chloride (98-107) mmol/L Carbon Dioxide (21-32) mmol/L Anion Gap (3-11) BUN (6-23) mg/dl Creatinine (0.6-1.2) mg/dl Est Cr Clr Drug Dosing ml/min eGFR BUN/Creatinine Ratio (10-20) Glucose (70-99(Fasting)) mg/dl POC Glucose 97 141 H (70-99) mg/dl Lactate (0.4-2.0) mmol/L Calcium (8.6-10.3) mg/dl Phosphorus (2.5-4.9) mg/dl Magnesium (1.7-2.4) mg/dl Total Bilirubin (0.2-1.0) mg/dl Direct Bilirubin (0-0.2) mg/dl AST (13-39) U/L ALT (7-52) U/L Alkaline Phosphatase (34-104) U/L Troponin I High Sens (0-14) pg/ml B-Natriuretic Peptide (0-100) pg/ml Total Protein (6.0-8.3) gm/dl Albumin (3.4-5.0) gm/dl Globulin (2.5-4.0) gm/dl Albumin/Globulin Ratio (0.9-2) Lipase (11-82) U/L CA 125 Antigen (<35) U/mL Procalcitonin (0-0.5) ng/ml TSH (0.300-4.500) uIu/ml Free T4 (0.61-1.60) ng/dl Urine Color Urine Appearance (Clear) Urine pH (4.5-7.5) Ur Specific [place] (1.000-1.030) Urine Protein (Negative) Urine Glucose (UA) (Negative) Urine Ketones (Negative) Urine Blood (Negative) Urine Nitrite (Negative) Urine Bilirubin (Negative) Urine Urobilinogen (Negative) Ur Leukocyte Esterase (Negative) Urine WBC (Auto) (0-5) /hpf Urine RBC (Auto) (0-2) /hpf U Hyaline Cast (Auto) (0-2) /lpf U Epithel Cells (Auto) (0-2) /hpf Urine Bacteria (Auto) (None Seen) Stl C. diff Tox B Gene (Neg) Adenovirus (PCR) (NotDetected) B. pertussis DNA (PCR) (NotDetected) B.parapertussis DNA PCR (NotDetected) C. pneumoniae DNA (PCR) (NotDetected) Coronavirus OC43 (PCR) (NotDetected) Coronavirus HKU1 (PCR) (NotDetected) Coronavirus 229E (PCR) (NotDetected) SARS-CoV-2 (PCR) (NotDetected) Coronavirus NL63 (PCR) (NotDetected) Human Metapneumovir PCR (NotDetected) Influenza Type A (PCR) (NotDetected) Influenza Type B (PCR) (NotDetected) M. pneumoniae (PCR) (NotDetected) Parainfluenza 1 (PCR) (NotDetected) Parainfluenza 2 (PCR) (NotDetected) Parainfluenza 3 (PCR) (NotDetected) Parainfluenza 4 (PCR) (NotDetected) RSV (PCR) (NotDetected) Entero/Rhino (PCR) (NotDetected) Blood Type Blood Type Recheck Antibody Screen Crossmatch 01/28/25 01/28/25 01/27/25 Range/Units 05:45 03:23 21:03 WBC (4.8-10.8) K/ul RBC (4.20-5.40) M/uL Hgb (12.0-16.0) g/dl Hct (37.0-47.0) % MCV (80.0-100.0) fL MCH (25.0-34.0) pg MCHC (32.0-36.0) g/dL RDW Std Deviation (36.4-46.3) fL RDW Coeff of Sol (11.5-14.5) % Plt Count (130-400) K/uL MPV (9.4-12.4) fL Immature Gran % (Auto) % Neut % (Auto) % Lymph % (Auto) % [place] % (Auto) % Eos % (Auto) % Baso % (Auto) % Neut # (Auto) (1.40-6.50) K/uL Lymph # (Auto) (1.20-3.40) K/uL [place] # (Auto) (0.11-0.59) K/uL Eos # (Auto) (0.00-0.50) K/uL Baso # (Auto) (0.00-0.20) K/uL Immature Gran # (Auto) (0.01-0.20) K/uL Absolute Nucleated RBC (0.00-0.12) K/uL Nucleated RBC % (auto) % Neutrophils % (Manual) % Lymphocytes % (Manual) % Monocytes % (Manual) % Eosinophils % (Manual) % Metamyelocytes % (Man) % Neutrophils # (Manual) (1.40-6.50) K/uL Total Absolute Neuts (1.4-6.5) K/uL Lymphocytes # (Manual) (1.2-3.4) K/uL Total Abs Lymphocytes (1.2-3.4) K/uL Monocytes # (Manual) (0.11-0.59) K/uL Eosinophils # (Manual) (0-0.50) K/uL Metamyelocytes # (Man) (0-0) K/uL Hyposegmented Neuts Toxic Granulation Toxic Vacuolation Platelet Estimate (Normal) Polychromasia Target Cells PT (9.0-12.0) Seconds INR (0.9-1.1) APTT (21-31) Seconds PTT Ratio Fibrinogen (184-400) mg/dl Heparin Anti-Xa, Unfract 0.30 (0.3-0.7) IU/ml Sodium (136-145) mmol/L Potassium (3.5-5.1) mmol/L Chloride (98-107) mmol/L Carbon Dioxide (21-32) mmol/L Anion Gap (3-11) BUN (6-23) mg/dl Creatinine (0.6-1.2) mg/dl Est Cr Clr Drug Dosing ml/min eGFR BUN/Creatinine Ratio (10-20) Glucose (70-99(Fasting)) mg/dl POC Glucose 127 H (70-99) mg/dl Lactate (0.4-2.0) mmol/L Calcium (8.6-10.3) mg/dl Phosphorus (2.5-4.9) mg/dl Magnesium (1.7-2.4) mg/dl Total Bilirubin (0.2-1.0) mg/dl Direct Bilirubin (0-0.2) mg/dl AST (13-39) U/L ALT (7-52) U/L Alkaline Phosphatase (34-104) U/L Troponin I High Sens (0-14) pg/ml B-Natriuretic Peptide (0-100) pg/ml Total Protein (6.0-8.3) gm/dl Albumin (3.4-5.0) gm/dl Globulin (2.5-4.0) gm/dl Albumin/Globulin Ratio (0.9-2) Lipase (11-82) U/L CA 125 Antigen (<35) U/mL Procalcitonin (0-0.5) ng/ml TSH (0.300-4.500) uIu/ml Free T4 (0.61-1.60) ng/dl Urine Color Urine Appearance (Clear) Urine pH (4.5-7.5) Ur Specific [place] (1.000-1.030) Urine Protein (Negative) Urine Glucose (UA) (Negative) Urine Ketones (Negative) Urine Blood (Negative) Urine Nitrite (Negative) Urine Bilirubin (Negative) Urine Urobilinogen (Negative) Ur Leukocyte Esterase (Negative) Urine WBC (Auto) (0-5) /hpf Urine RBC (Auto) (0-2) /hpf U Hyaline Cast (Auto) (0-2) /lpf U Epithel Cells (Auto) (0-2) /hpf Urine Bacteria (Auto) (None Seen) Stl C. diff Tox B Gene Negative Cdiff Gene (Neg) Adenovirus (PCR) (NotDetected) B. pertussis DNA (PCR) (NotDetected) B.parapertussis DNA PCR (NotDetected) C. pneumoniae DNA (PCR) (NotDetected) Coronavirus OC43 (PCR) (NotDetected) Coronavirus HKU1 (PCR) (NotDetected) Coronavirus 229E (PCR) (NotDetected) SARS-CoV-2 (PCR) (NotDetected) Coronavirus NL63 (PCR) (NotDetected) Human Metapneumovir PCR (NotDetected) Influenza Type A (PCR) (NotDetected) Influenza Type B (PCR) (NotDetected) M. pneumoniae (PCR) (NotDetected) Parainfluenza 1 (PCR) (NotDetected) Parainfluenza 2 (PCR) (NotDetected) Parainfluenza 3 (PCR) (NotDetected) Parainfluenza 4 (PCR) (NotDetected) RSV (PCR) (NotDetected) Entero/Rhino (PCR) (NotDetected) Blood Type Blood Type Recheck Antibody Screen Crossmatch 01/27/25 01/27/25 01/27/25 Range/Units 18:34 16:45 11:56 WBC (4.8-10.8) K/ul RBC (4.20-5.40) M/uL Hgb (12.0-16.0) g/dl Hct (37.0-47.0) % MCV (80.0-100.0) fL MCH (25.0-34.0) pg MCHC (32.0-36.0) g/dL RDW Std Deviation (36.4-46.3) fL RDW Coeff of Sol (11.5-14.5) % Plt Count (130-400) K/uL MPV (9.4-12.4) fL Immature Gran % (Auto) % Neut % (Auto) % Lymph % (Auto) % [place] % (Auto) % Eos % (Auto) % Baso % (Auto) % Neut # (Auto) (1.40-6.50) K/uL Lymph # (Auto) (1.20-3.40) K/uL [place] # (Auto) (0.11-0.59) K/uL Eos # (Auto) (0.00-0.50) K/uL Baso # (Auto) (0.00-0.20) K/uL Immature Gran # (Auto) (0.01-0.20) K/uL Absolute Nucleated RBC (0.00-0.12) K/uL Nucleated RBC % (auto) % Neutrophils % (Manual) % Lymphocytes % (Manual) % Monocytes % (Manual) % Eosinophils % (Manual) % Metamyelocytes % (Man) % Neutrophils # (Manual) (1.40-6.50) K/uL Total Absolute Neuts (1.4-6.5) K/uL Lymphocytes # (Manual) (1.2-3.4) K/uL Total Abs Lymphocytes (1.2-3.4) K/uL Monocytes # (Manual) (0.11-0.59) K/uL Eosinophils # (Manual) (0-0.50) K/uL Metamyelocytes # (Man) (0-0) K/uL Hyposegmented Neuts Toxic Granulation Toxic Vacuolation Platelet Estimate (Normal) Polychromasia Target Cells PT (9.0-12.0) Seconds INR (0.9-1.1) APTT (21-31) Seconds PTT Ratio Fibrinogen (184-400) mg/dl Heparin Anti-Xa, Unfract 0.18 L (0.3-0.7) IU/ml Sodium (136-145) mmol/L Potassium (3.5-5.1) mmol/L Chloride (98-107) mmol/L Carbon Dioxide (21-32) mmol/L Anion Gap (3-11) BUN (6-23) mg/dl Creatinine (0.6-1.2) mg/dl Est Cr Clr Drug Dosing ml/min eGFR BUN/Creatinine Ratio (10-20) Glucose (70-99(Fasting)) mg/dl POC Glucose 173 H 233 H (70-99) mg/dl Lactate (0.4-2.0) mmol/L Calcium (8.6-10.3) mg/dl Phosphorus (2.5-4.9) mg/dl Magnesium (1.7-2.4) mg/dl Total Bilirubin (0.2-1.0) mg/dl Direct Bilirubin (0-0.2) mg/dl AST (13-39) U/L ALT (7-52) U/L Alkaline Phosphatase (34-104) U/L Troponin I High Sens (0-14) pg/ml B-Natriuretic Peptide (0-100) pg/ml Total Protein (6.0-8.3) gm/dl Albumin (3.4-5.0) gm/dl Globulin (2.5-4.0) gm/dl Albumin/Globulin Ratio (0.9-2) Lipase (11-82) U/L CA 125 Antigen (<35) U/mL Procalcitonin (0-0.5) ng/ml TSH (0.300-4.500) uIu/ml Free T4 (0.61-1.60) ng/dl Urine Color Urine Appearance (Clear) Urine pH (4.5-7.5) Ur Specific [place] (1.000-1.030) Urine Protein (Negative) Urine Glucose (UA) (Negative) Urine Ketones (Negative) Urine Blood (Negative) Urine Nitrite (Negative) Urine Bilirubin (Negative) Urine Urobilinogen (Negative) Ur Leukocyte Esterase (Negative) Urine WBC (Auto) (0-5) /hpf Urine RBC (Auto) (0-2) /hpf U Hyaline Cast (Auto) (0-2) /lpf U Epithel Cells (Auto) (0-2) /hpf Urine Bacteria (Auto) (None Seen) Stl C. diff Tox B Gene (Neg) Adenovirus (PCR) (NotDetected) B. pertussis DNA (PCR) (NotDetected) B.parapertussis DNA PCR (NotDetected) C. pneumoniae DNA (PCR) (NotDetected) Coronavirus OC43 (PCR) (NotDetected) Coronavirus HKU1 (PCR) (NotDetected) Coronavirus 229E (PCR) (NotDetected) SARS-CoV-2 (PCR) (NotDetected) Coronavirus NL63 (PCR) (NotDetected) Human Metapneumovir PCR (NotDetected) Influenza Type A (PCR) (NotDetected) Influenza Type B (PCR) (NotDetected) M. pneumoniae (PCR) (NotDetected) Parainfluenza 1 (PCR) (NotDetected) Parainfluenza 2 (PCR) (NotDetected) Parainfluenza 3 (PCR) (NotDetected) Parainfluenza 4 (PCR) (NotDetected) RSV (PCR) (NotDetected) Entero/Rhino (PCR) (NotDetected) Blood Type Blood Type Recheck Antibody Screen Crossmatch 01/27/25 01/27/25 01/27/25 Range/Units 11:17 07:28 04:16 WBC (4.8-10.8) K/ul RBC (4.20-5.40) M/uL Hgb (12.0-16.0) g/dl Hct (37.0-47.0) % MCV (80.0-100.0) fL MCH (25.0-34.0) pg MCHC (32.0-36.0) g/dL RDW Std Deviation (36.4-46.3) fL RDW Coeff of Sol (11.5-14.5) % Plt Count (130-400) K/uL MPV (9.4-12.4) fL Immature Gran % (Auto) % Neut % (Auto) % Lymph % (Auto) % [place] % (Auto) % Eos % (Auto) % Baso % (Auto) % Neut # (Auto) (1.40-6.50) K/uL Lymph # (Auto) (1.20-3.40) K/uL [place] # (Auto) (0.11-0.59) K/uL Eos # (Auto) (0.00-0.50) K/uL Baso # (Auto) (0.00-0.20) K/uL Immature Gran # (Auto) (0.01-0.20) K/uL Absolute Nucleated RBC (0.00-0.12) K/uL Nucleated RBC % (auto) % Neutrophils % (Manual) % Lymphocytes % (Manual) % Monocytes % (Manual) % Eosinophils % (Manual) % Metamyelocytes % (Man) % Neutrophils # (Manual) (1.40-6.50) K/uL Total Absolute Neuts (1.4-6.5) K/uL Lymphocytes # (Manual) (1.2-3.4) K/uL Total Abs Lymphocytes (1.2-3.4) K/uL Monocytes # (Manual) (0.11-0.59) K/uL Eosinophils # (Manual) (0-0.50) K/uL Metamyelocytes # (Man) (0-0) K/uL Hyposegmented Neuts Toxic Granulation Toxic Vacuolation Platelet Estimate (Normal) Polychromasia Target Cells PT (9.0-12.0) Seconds INR (0.9-1.1) APTT (21-31) Seconds PTT Ratio Fibrinogen (184-400) mg/dl Heparin Anti-Xa, Unfract 0.22 L 0.21 L (0.3-0.7) IU/ml Sodium (136-145) mmol/L Potassium (3.5-5.1) mmol/L Chloride (98-107) mmol/L Carbon Dioxide (21-32) mmol/L Anion Gap (3-11) BUN (6-23) mg/dl Creatinine (0.6-1.2) mg/dl Est Cr Clr Drug Dosing ml/min eGFR BUN/Creatinine Ratio (10-20) Glucose (70-99(Fasting)) mg/dl POC Glucose 141 H (70-99) mg/dl Lactate (0.4-2.0) mmol/L Calcium (8.6-10.3) mg/dl Phosphorus (2.5-4.9) mg/dl Magnesium (1.7-2.4) mg/dl Total Bilirubin (0.2-1.0) mg/dl Direct Bilirubin (0-0.2) mg/dl AST (13-39) U/L ALT (7-52) U/L Alkaline Phosphatase (34-104) U/L Troponin I High Sens (0-14) pg/ml B-Natriuretic Peptide (0-100) pg/ml Total Protein (6.0-8.3) gm/dl Albumin (3.4-5.0) gm/dl Globulin (2.5-4.0) gm/dl Albumin/Globulin Ratio (0.9-2) Lipase (11-82) U/L CA 125 Antigen (<35) U/mL Procalcitonin (0-0.5) ng/ml TSH (0.300-4.500) uIu/ml Free T4 (0.61-1.60) ng/dl Urine Color Urine Appearance (Clear) Urine pH (4.5-7.5) Ur Specific [place] (1.000-1.030) Urine Protein (Negative) Urine Glucose (UA) (Negative) Urine Ketones (Negative) Urine Blood (Negative) Urine Nitrite (Negative) Urine Bilirubin (Negative) Urine Urobilinogen (Negative) Ur Leukocyte Esterase (Negative) Urine WBC (Auto) (0-5) /hpf Urine RBC (Auto) (0-2) /hpf U Hyaline Cast (Auto) (0-2) /lpf U Epithel Cells (Auto) (0-2) /hpf Urine Bacteria (Auto) (None Seen) Stl C. diff Tox B Gene (Neg) Adenovirus (PCR) (NotDetected) B. pertussis DNA (PCR) (NotDetected) B.parapertussis DNA PCR (NotDetected) C. pneumoniae DNA (PCR) (NotDetected) Coronavirus OC43 (PCR) (NotDetected) Coronavirus HKU1 (PCR) (NotDetected) Coronavirus 229E (PCR) (NotDetected) SARS-CoV-2 (PCR) (NotDetected) Coronavirus NL63 (PCR) (NotDetected) Human Metapneumovir PCR (NotDetected) Influenza Type A (PCR) (NotDetected) Influenza Type B (PCR) (NotDetected) M. pneumoniae (PCR) (NotDetected) Parainfluenza 1 (PCR) (NotDetected) Parainfluenza 2 (PCR) (NotDetected) Parainfluenza 3 (PCR) (NotDetected) Parainfluenza 4 (PCR) (NotDetected) RSV (PCR) (NotDetected) Entero/Rhino (PCR) (NotDetected) Blood Type Blood Type Recheck Antibody Screen Crossmatch 01/26/25 01/26/25 01/26/25 Range/Units 21:18 20:49 16:38 WBC (4.8-10.8) K/ul RBC (4.20-5.40) M/uL Hgb (12.0-16.0) g/dl Hct (37.0-47.0) % MCV (80.0-100.0) fL MCH (25.0-34.0) pg MCHC (32.0-36.0) g/dL RDW Std Deviation (36.4-46.3) fL RDW Coeff of Sol (11.5-14.5) % Plt Count (130-400) K/uL MPV (9.4-12.4) fL Immature Gran % (Auto) % Neut % (Auto) % Lymph % (Auto) % [place] % (Auto) % Eos % (Auto) % Baso % (Auto) % Neut # (Auto) (1.40-6.50) K/uL Lymph # (Auto) (1.20-3.40) K/uL [place] # (Auto) (0.11-0.59) K/uL Eos # (Auto) (0.00-0.50) K/uL Baso # (Auto) (0.00-0.20) K/uL Immature Gran # (Auto) (0.01-0.20) K/uL Absolute Nucleated RBC (0.00-0.12) K/uL Nucleated RBC % (auto) % Neutrophils % (Manual) % Lymphocytes % (Manual) % Monocytes % (Manual) % Eosinophils % (Manual) % Metamyelocytes % (Man) % Neutrophils # (Manual) (1.40-6.50) K/uL Total Absolute Neuts (1.4-6.5) K/uL Lymphocytes # (Manual) (1.2-3.4) K/uL Total Abs Lymphocytes (1.2-3.4) K/uL Monocytes # (Manual) (0.11-0.59) K/uL Eosinophils # (Manual) (0-0.50) K/uL Metamyelocytes # (Man) (0-0) K/uL Hyposegmented Neuts Toxic Granulation Toxic Vacuolation Platelet Estimate (Normal) Polychromasia Target Cells PT (9.0-12.0) Seconds INR (0.9-1.1) APTT (21-31) Seconds PTT Ratio Fibrinogen (184-400) mg/dl Heparin Anti-Xa, Unfract 0.21 L (0.3-0.7) IU/ml Sodium (136-145) mmol/L Potassium (3.5-5.1) mmol/L Chloride (98-107) mmol/L Carbon Dioxide (21-32) mmol/L Anion Gap (3-11) BUN (6-23) mg/dl Creatinine (0.6-1.2) mg/dl Est Cr Clr Drug Dosing ml/min eGFR BUN/Creatinine Ratio (10-20) Glucose (70-99(Fasting)) mg/dl POC Glucose 130 H 157 H (70-99) mg/dl Lactate (0.4-2.0) mmol/L Calcium (8.6-10.3) mg/dl Phosphorus (2.5-4.9) mg/dl Magnesium (1.7-2.4) mg/dl Total Bilirubin (0.2-1.0) mg/dl Direct Bilirubin (0-0.2) mg/dl AST (13-39) U/L ALT (7-52) U/L Alkaline Phosphatase (34-104) U/L Troponin I High Sens (0-14) pg/ml B-Natriuretic Peptide (0-100) pg/ml Total Protein (6.0-8.3) gm/dl Albumin (3.4-5.0) gm/dl Globulin (2.5-4.0) gm/dl Albumin/Globulin Ratio (0.9-2) Lipase (11-82) U/L CA 125 Antigen (<35) U/mL Procalcitonin (0-0.5) ng/ml TSH (0.300-4.500) uIu/ml Free T4 (0.61-1.60) ng/dl Urine Color Urine Appearance (Clear) Urine pH (4.5-7.5) Ur Specific [place] (1.000-1.030) Urine Protein (Negative) Urine Glucose (UA) (Negative) Urine Ketones (Negative) Urine Blood (Negative) Urine Nitrite (Negative) Urine Bilirubin (Negative) Urine Urobilinogen (Negative) Ur Leukocyte Esterase (Negative) Urine WBC (Auto) (0-5) /hpf Urine RBC (Auto) (0-2) /hpf U Hyaline Cast (Auto) (0-2) /lpf U Epithel Cells (Auto) (0-2) /hpf Urine Bacteria (Auto) (None Seen) Stl C. diff Tox B Gene (Neg) Adenovirus (PCR) (NotDetected) B. pertussis DNA (PCR) (NotDetected) B.parapertussis DNA PCR (NotDetected) C. pneumoniae DNA (PCR) (NotDetected) Coronavirus OC43 (PCR) (NotDetected) Coronavirus HKU1 (PCR) (NotDetected) Coronavirus 229E (PCR) (NotDetected) SARS-CoV-2 (PCR) (NotDetected) Coronavirus NL63 (PCR) (NotDetected) Human Metapneumovir PCR (NotDetected) Influenza Type A (PCR) (NotDetected) Influenza Type B (PCR) (NotDetected) M. pneumoniae (PCR) (NotDetected) Parainfluenza 1 (PCR) (NotDetected) Parainfluenza 2 (PCR) (NotDetected) Parainfluenza 3 (PCR) (NotDetected) Parainfluenza 4 (PCR) (NotDetected) RSV (PCR) (NotDetected) Entero/Rhino (PCR) (NotDetected) Blood Type Blood Type Recheck Antibody Screen Crossmatch 01/26/25 01/26/25 01/26/25 Range/Units 14:03 12:46 11:05 WBC (4.8-10.8) K/ul RBC (4.20-5.40) M/uL Hgb (12.0-16.0) g/dl Hct (37.0-47.0) % MCV (80.0-100.0) fL MCH (25.0-34.0) pg MCHC (32.0-36.0) g/dL RDW Std Deviation (36.4-46.3) fL RDW Coeff of Sol (11.5-14.5) % Plt Count (130-400) K/uL MPV (9.4-12.4) fL Immature Gran % (Auto) % Neut % (Auto) % Lymph % (Auto) % [place] % (Auto) % Eos % (Auto) % Baso % (Auto) % Neut # (Auto) (1.40-6.50) K/uL Lymph # (Auto) (1.20-3.40) K/uL [place] # (Auto) (0.11-0.59) K/uL Eos # (Auto) (0.00-0.50) K/uL Baso # (Auto) (0.00-0.20) K/uL Immature Gran # (Auto) (0.01-0.20) K/uL Absolute Nucleated RBC (0.00-0.12) K/uL Nucleated RBC % (auto) % Neutrophils % (Manual) % Lymphocytes % (Manual) % Monocytes % (Manual) % Eosinophils % (Manual) % Metamyelocytes % (Man) % Neutrophils # (Manual) (1.40-6.50) K/uL Total Absolute Neuts (1.4-6.5) K/uL Lymphocytes # (Manual) (1.2-3.4) K/uL Total Abs Lymphocytes (1.2-3.4) K/uL Monocytes # (Manual) (0.11-0.59) K/uL Eosinophils # (Manual) (0-0.50) K/uL Metamyelocytes # (Man) (0-0) K/uL Hyposegmented Neuts Toxic Granulation Toxic Vacuolation Platelet Estimate (Normal) Polychromasia Target Cells PT (9.0-12.0) Seconds INR (0.9-1.1) APTT (21-31) Seconds PTT Ratio Fibrinogen (184-400) mg/dl Heparin Anti-Xa, Unfract 0.18 L Cancelled (0.3-0.7) IU/ml Sodium (136-145) mmol/L Potassium (3.5-5.1) mmol/L Chloride (98-107) mmol/L Carbon Dioxide (21-32) mmol/L Anion Gap (3-11) BUN (6-23) mg/dl Creatinine (0.6-1.2) mg/dl Est Cr Clr Drug Dosing ml/min eGFR BUN/Creatinine Ratio (10-20) Glucose (70-99(Fasting)) mg/dl POC Glucose 134 H (70-99) mg/dl Lactate (0.4-2.0) mmol/L Calcium (8.6-10.3) mg/dl Phosphorus (2.5-4.9) mg/dl Magnesium (1.7-2.4) mg/dl Total Bilirubin (0.2-1.0) mg/dl Direct Bilirubin (0-0.2) mg/dl AST (13-39) U/L ALT (7-52) U/L Alkaline Phosphatase (34-104) U/L Troponin I High Sens (0-14) pg/ml B-Natriuretic Peptide (0-100) pg/ml Total Protein (6.0-8.3) gm/dl Albumin (3.4-5.0) gm/dl Globulin (2.5-4.0) gm/dl Albumin/Globulin Ratio (0.9-2) Lipase (11-82) U/L CA 125 Antigen (<35) U/mL Procalcitonin (0-0.5) ng/ml TSH (0.300-4.500) uIu/ml Free T4 (0.61-1.60) ng/dl Urine Color Urine Appearance (Clear) Urine pH (4.5-7.5) Ur Specific [place] (1.000-1.030) Urine Protein (Negative) Urine Glucose (UA) (Negative) Urine Ketones (Negative) Urine Blood (Negative) Urine Nitrite (Negative) Urine Bilirubin (Negative) Urine Urobilinogen (Negative) Ur Leukocyte Esterase (Negative) Urine WBC (Auto) (0-5) /hpf Urine RBC (Auto) (0-2) /hpf U Hyaline Cast (Auto) (0-2) /lpf U Epithel Cells (Auto) (0-2) /hpf Urine Bacteria (Auto) (None Seen) Stl C. diff Tox B Gene (Neg) Adenovirus (PCR) (NotDetected) B. pertussis DNA (PCR) (NotDetected) B.parapertussis DNA PCR (NotDetected) C. pneumoniae DNA (PCR) (NotDetected) Coronavirus OC43 (PCR) (NotDetected) Coronavirus HKU1 (PCR) (NotDetected) Coronavirus 229E (PCR) (NotDetected) SARS-CoV-2 (PCR) (NotDetected) Coronavirus NL63 (PCR) (NotDetected) Human Metapneumovir PCR (NotDetected) Influenza Type A (PCR) (NotDetected) Influenza Type B (PCR) (NotDetected) M. pneumoniae (PCR) (NotDetected) Parainfluenza 1 (PCR) (NotDetected) Parainfluenza 2 (PCR) (NotDetected) Parainfluenza 3 (PCR) (NotDetected) Parainfluenza 4 (PCR) (NotDetected) RSV (PCR) (NotDetected) Entero/Rhino (PCR) (NotDetected) Blood Type Blood Type Recheck Antibody Screen Crossmatch 01/26/25 01/26/25 01/25/25 Range/Units 07:08 05:40 21:42 WBC (4.8-10.8) K/ul RBC (4.20-5.40) M/uL Hgb (12.0-16.0) g/dl Hct (37.0-47.0) % MCV (80.0-100.0) fL MCH (25.0-34.0) pg MCHC (32.0-36.0) g/dL RDW Std Deviation (36.4-46.3) fL RDW Coeff of Sol (11.5-14.5) % Plt Count (130-400) K/uL MPV (9.4-12.4) fL Immature Gran % (Auto) % Neut % (Auto) % Lymph % (Auto) % [place] % (Auto) % Eos % (Auto) % Baso % (Auto) % Neut # (Auto) (1.40-6.50) K/uL Lymph # (Auto) (1.20-3.40) K/uL [place] # (Auto) (0.11-0.59) K/uL Eos # (Auto) (0.00-0.50) K/uL Baso # (Auto) (0.00-0.20) K/uL Immature Gran # (Auto) (0.01-0.20) K/uL Absolute Nucleated RBC (0.00-0.12) K/uL Nucleated RBC % (auto) % Neutrophils % (Manual) % Lymphocytes % (Manual) % Monocytes % (Manual) % Eosinophils % (Manual) % Metamyelocytes % (Man) % Neutrophils # (Manual) (1.40-6.50) K/uL Total Absolute Neuts (1.4-6.5) K/uL Lymphocytes # (Manual) (1.2-3.4) K/uL Total Abs Lymphocytes (1.2-3.4) K/uL Monocytes # (Manual) (0.11-0.59) K/uL Eosinophils # (Manual) (0-0.50) K/uL Metamyelocytes # (Man) (0-0) K/uL Hyposegmented Neuts Toxic Granulation Toxic Vacuolation Platelet Estimate (Normal) Polychromasia Target Cells PT (9.0-12.0) Seconds INR (0.9-1.1) APTT (21-31) Seconds PTT Ratio Fibrinogen (184-400) mg/dl Heparin Anti-Xa, Unfract 0.15 L 0.30 (0.3-0.7) IU/ml Sodium (136-145) mmol/L Potassium (3.5-5.1) mmol/L Chloride (98-107) mmol/L Carbon Dioxide (21-32) mmol/L Anion Gap (3-11) BUN (6-23) mg/dl Creatinine (0.6-1.2) mg/dl Est Cr Clr Drug Dosing ml/min eGFR BUN/Creatinine Ratio (10-20) Glucose (70-99(Fasting)) mg/dl POC Glucose 125 H (70-99) mg/dl Lactate (0.4-2.0) mmol/L Calcium (8.6-10.3) mg/dl Phosphorus (2.5-4.9) mg/dl Magnesium (1.7-2.4) mg/dl Total Bilirubin (0.2-1.0) mg/dl Direct Bilirubin (0-0.2) mg/dl AST (13-39) U/L ALT (7-52) U/L Alkaline Phosphatase (34-104) U/L Troponin I High Sens (0-14) pg/ml B-Natriuretic Peptide (0-100) pg/ml Total Protein (6.0-8.3) gm/dl Albumin (3.4-5.0) gm/dl Globulin (2.5-4.0) gm/dl Albumin/Globulin Ratio (0.9-2) Lipase (11-82) U/L CA 125 Antigen (<35) U/mL Procalcitonin (0-0.5) ng/ml TSH (0.300-4.500) uIu/ml Free T4 (0.61-1.60) ng/dl Urine Color Urine Appearance (Clear) Urine pH (4.5-7.5) Ur Specific [place] (1.000-1.030) Urine Protein (Negative) Urine Glucose (UA) (Negative) Urine Ketones (Negative) Urine Blood (Negative) Urine Nitrite (Negative) Urine Bilirubin (Negative) Urine Urobilinogen (Negative) Ur Leukocyte Esterase (Negative) Urine WBC (Auto) (0-5) /hpf Urine RBC (Auto) (0-2) /hpf U Hyaline Cast (Auto) (0-2) /lpf U Epithel Cells (Auto) (0-2) /hpf Urine Bacteria (Auto) (None Seen) Stl C. diff Tox B Gene (Neg) Adenovirus (PCR) (NotDetected) B. pertussis DNA (PCR) (NotDetected) B.parapertussis DNA PCR (NotDetected) C. pneumoniae DNA (PCR) (NotDetected) Coronavirus OC43 (PCR) (NotDetected) Coronavirus HKU1 (PCR) (NotDetected) Coronavirus 229E (PCR) (NotDetected) SARS-CoV-2 (PCR) (NotDetected) Coronavirus NL63 (PCR) (NotDetected) Human Metapneumovir PCR (NotDetected) Influenza Type A (PCR) (NotDetected) Influenza Type B (PCR) (NotDetected) M. pneumoniae (PCR) (NotDetected) Parainfluenza 1 (PCR) (NotDetected) Parainfluenza 2 (PCR) (NotDetected) Parainfluenza 3 (PCR) (NotDetected) Parainfluenza 4 (PCR) (NotDetected) RSV (PCR) (NotDetected) Entero/Rhino (PCR) (NotDetected) Blood Type Blood Type Recheck Antibody Screen Crossmatch 01/25/25 01/25/25 01/25/25 Range/Units 20:11 16:15 14:56 WBC (4.8-10.8) K/ul RBC (4.20-5.40) M/uL Hgb (12.0-16.0) g/dl Hct (37.0-47.0) % MCV (80.0-100.0) fL MCH (25.0-34.0) pg MCHC (32.0-36.0) g/dL RDW Std Deviation (36.4-46.3) fL RDW Coeff of Sol (11.5-14.5) % Plt Count (130-400) K/uL MPV (9.4-12.4) fL Immature Gran % (Auto) % Neut % (Auto) % Lymph % (Auto) % [place] % (Auto) % Eos % (Auto) % Baso % (Auto) % Neut # (Auto) (1.40-6.50) K/uL Lymph # (Auto) (1.20-3.40) K/uL [place] # (Auto) (0.11-0.59) K/uL Eos # (Auto) (0.00-0.50) K/uL Baso # (Auto) (0.00-0.20) K/uL Immature Gran # (Auto) (0.01-0.20) K/uL Absolute Nucleated RBC (0.00-0.12) K/uL Nucleated RBC % (auto) % Neutrophils % (Manual) % Lymphocytes % (Manual) % Monocytes % (Manual) % Eosinophils % (Manual) % Metamyelocytes % (Man) % Neutrophils # (Manual) (1.40-6.50) K/uL Total Absolute Neuts (1.4-6.5) K/uL Lymphocytes # (Manual) (1.2-3.4) K/uL Total Abs Lymphocytes (1.2-3.4) K/uL Monocytes # (Manual) (0.11-0.59) K/uL Eosinophils # (Manual) (0-0.50) K/uL Metamyelocytes # (Man) (0-0) K/uL Hyposegmented Neuts Toxic Granulation Toxic Vacuolation Platelet Estimate (Normal) Polychromasia Target Cells PT (9.0-12.0) Seconds INR (0.9-1.1) APTT (21-31) Seconds PTT Ratio Fibrinogen (184-400) mg/dl Heparin Anti-Xa, Unfract 0.24 L (0.3-0.7) IU/ml Sodium (136-145) mmol/L Potassium (3.5-5.1) mmol/L Chloride (98-107) mmol/L Carbon Dioxide (21-32) mmol/L Anion Gap (3-11) BUN (6-23) mg/dl Creatinine (0.6-1.2) mg/dl Est Cr Clr Drug Dosing ml/min eGFR BUN/Creatinine Ratio (10-20) Glucose (70-99(Fasting)) mg/dl POC Glucose 144 H 122 H (70-99) mg/dl Lactate (0.4-2.0) mmol/L Calcium (8.6-10.3) mg/dl Phosphorus (2.5-4.9) mg/dl Magnesium (1.7-2.4) mg/dl Total Bilirubin (0.2-1.0) mg/dl Direct Bilirubin (0-0.2) mg/dl AST (13-39) U/L ALT (7-52) U/L Alkaline Phosphatase (34-104) U/L Troponin I High Sens (0-14) pg/ml B-Natriuretic Peptide (0-100) pg/ml Total Protein (6.0-8.3) gm/dl Albumin (3.4-5.0) gm/dl Globulin (2.5-4.0) gm/dl Albumin/Globulin Ratio (0.9-2) Lipase (11-82) U/L CA 125 Antigen (<35) U/mL Procalcitonin (0-0.5) ng/ml TSH (0.300-4.500) uIu/ml Free T4 (0.61-1.60) ng/dl Urine Color Urine Appearance (Clear) Urine pH (4.5-7.5) Ur Specific [place] (1.000-1.030) Urine Protein (Negative) Urine Glucose (UA) (Negative) Urine Ketones (Negative) Urine Blood (Negative) Urine Nitrite (Negative) Urine Bilirubin (Negative) Urine Urobilinogen (Negative) Ur Leukocyte Esterase (Negative) Urine WBC (Auto) (0-5) /hpf Urine RBC (Auto) (0-2) /hpf U Hyaline Cast (Auto) (0-2) /lpf U Epithel Cells (Auto) (0-2) /hpf Urine Bacteria (Auto) (None Seen) Stl C. diff Tox B Gene (Neg) Adenovirus (PCR) (NotDetected) B. pertussis DNA (PCR) (NotDetected) B.parapertussis DNA PCR (NotDetected) C. pneumoniae DNA (PCR) (NotDetected) Coronavirus OC43 (PCR) (NotDetected) Coronavirus HKU1 (PCR) (NotDetected) Coronavirus 229E (PCR) (NotDetected) SARS-CoV-2 (PCR) (NotDetected) Coronavirus NL63 (PCR) (NotDetected) Human Metapneumovir PCR (NotDetected) Influenza Type A (PCR) (NotDetected) Influenza Type B (PCR) (NotDetected) M. pneumoniae (PCR) (NotDetected) Parainfluenza 1 (PCR) (NotDetected) Parainfluenza 2 (PCR) (NotDetected) Parainfluenza 3 (PCR) (NotDetected) Parainfluenza 4 (PCR) (NotDetected) RSV (PCR) (NotDetected) Entero/Rhino (PCR) (NotDetected) Blood Type Blood Type Recheck Antibody Screen Crossmatch 01/25/25 01/25/25 01/25/25 Range/Units 11:45 07:37 07:26 WBC 0.64 L* (4.8-10.8) K/ul RBC 2.44 L (4.20-5.40) M/uL Hgb 6.9 L* (12.0-16.0) g/dl Hct 20.4 L* (37.0-47.0) % MCV 83.6 (80.0-100.0) fL MCH 28.3 (25.0-34.0) pg MCHC 33.8 (32.0-36.0) g/dL RDW Std Deviation 49.2 H (36.4-46.3) fL RDW Coeff of Sol 16.0 H (11.5-14.5) % Plt Count 68 L (130-400) K/uL MPV 11.8 (9.4-12.4) fL Immature Gran % (Auto) 1.6 % Neut % (Auto) 12.5 % Lymph % (Auto) 53.1 % [place] % (Auto) 32.8 % Eos % (Auto) 0.0 % Baso % (Auto) 0.0 % Neut # (Auto) 0.08 L* (1.40-6.50) K/uL Lymph # (Auto) 0.34 L (1.20-3.40) K/uL [place] # (Auto) 0.21 (0.11-0.59) K/uL Eos # (Auto) 0.00 (0.00-0.50) K/uL Baso # (Auto) 0.00 (0.00-0.20) K/uL Immature Gran # (Auto) 0.01 (0.01-0.20) K/uL Absolute Nucleated RBC (0.00-0.12) K/uL Nucleated RBC % (auto) % Neutrophils % (Manual) % Lymphocytes % (Manual) % Monocytes % (Manual) % Eosinophils % (Manual) % Metamyelocytes % (Man) % Neutrophils # (Manual) (1.40-6.50) K/uL Total Absolute Neuts (1.4-6.5) K/uL Lymphocytes # (Manual) (1.2-3.4) K/uL Total Abs Lymphocytes (1.2-3.4) K/uL Monocytes # (Manual) (0.11-0.59) K/uL Eosinophils # (Manual) (0-0.50) K/uL Metamyelocytes # (Man) (0-0) K/uL Hyposegmented Neuts Toxic Granulation Toxic Vacuolation Platelet Estimate (Normal) Polychromasia 1+ Target Cells 1+ PT (9.0-12.0) Seconds INR (0.9-1.1) APTT (21-31) Seconds PTT Ratio Fibrinogen (184-400) mg/dl Heparin Anti-Xa, Unfract 0.26 L (0.3-0.7) IU/ml Sodium 131 L (136-145) mmol/L Potassium 3.9 (3.5-5.1) mmol/L Chloride 99 (98-107) mmol/L Carbon Dioxide 29 (21-32) mmol/L Anion Gap 3 (3-11) BUN 43 H (6-23) mg/dl Creatinine 1.15 (0.6-1.2) mg/dl Est Cr Clr Drug Dosing 43.4 ml/min eGFR 52.21 BUN/Creatinine Ratio 37.4 H (10-20) Glucose 115 H (70-99(Fasting)) mg/dl POC Glucose 163 H 137 H (70-99) mg/dl Lactate (0.4-2.0) mmol/L Calcium 6.9 L (8.6-10.3) mg/dl Phosphorus (2.5-4.9) mg/dl Magnesium 2.1 (1.7-2.4) mg/dl Total Bilirubin 1.1 H (0.2-1.0) mg/dl Direct Bilirubin (0-0.2) mg/dl AST 84 H (13-39) U/L ALT 55 H (7-52) U/L Alkaline Phosphatase 225 H (34-104) U/L Troponin I High Sens (0-14) pg/ml B-Natriuretic Peptide (0-100) pg/ml Total Protein 4.3 L (6.0-8.3) gm/dl Albumin 1.9 L (3.4-5.0) gm/dl Globulin 2.4 L (2.5-4.0) gm/dl Albumin/Globulin Ratio 0.8 L (0.9-2) Lipase (11-82) U/L CA 125 Antigen (<35) U/mL Procalcitonin (0-0.5) ng/ml TSH (0.300-4.500) uIu/ml Free T4 (0.61-1.60) ng/dl Urine Color Urine Appearance (Clear) Urine pH (4.5-7.5) Ur Specific [place] (1.000-1.030) Urine Protein (Negative) Urine Glucose (UA) (Negative) Urine Ketones (Negative) Urine Blood (Negative) Urine Nitrite (Negative) Urine Bilirubin (Negative) Urine Urobilinogen (Negative) Ur Leukocyte Esterase (Negative) Urine WBC (Auto) (0-5) /hpf Urine RBC (Auto) (0-2) /hpf U Hyaline Cast (Auto) (0-2) /lpf U Epithel Cells (Auto) (0-2) /hpf Urine Bacteria (Auto) (None Seen) Stl C. diff Tox B Gene (Neg) Adenovirus (PCR) (NotDetected) B. pertussis DNA (PCR) (NotDetected) B.parapertussis DNA PCR (NotDetected) C. pneumoniae DNA (PCR) (NotDetected) Coronavirus OC43 (PCR) (NotDetected) Coronavirus HKU1 (PCR) (NotDetected) Coronavirus 229E (PCR) (NotDetected) SARS-CoV-2 (PCR) (NotDetected) Coronavirus NL63 (PCR) (NotDetected) Human Metapneumovir PCR (NotDetected) Influenza Type A (PCR) (NotDetected) Influenza Type B (PCR) (NotDetected) M. pneumoniae (PCR) (NotDetected) Parainfluenza 1 (PCR) (NotDetected) Parainfluenza 2 (PCR) (NotDetected) Parainfluenza 3 (PCR) (NotDetected) Parainfluenza 4 (PCR) (NotDetected) RSV (PCR) (NotDetected) Entero/Rhino (PCR) (NotDetected) Blood Type Blood Type Recheck Antibody Screen Crossmatch 01/25/25 01/24/25 01/24/25 Range/Units 00:34 21:13 17:04 WBC 0.50 L* (4.8-10.8) K/ul RBC 2.68 L (4.20-5.40) M/uL Hgb 7.4 L (12.0-16.0) g/dl Hct 22.7 L (37.0-47.0) % MCV 84.7 (80.0-100.0) fL MCH 27.6 (25.0-34.0) pg MCHC 32.6 (32.0-36.0) g/dL RDW Std Deviation 49.7 H (36.4-46.3) fL RDW Coeff of Sol 16.2 H (11.5-14.5) % Plt Count 91 L (130-400) K/uL MPV 12.3 (9.4-12.4) fL Immature Gran % (Auto) % Neut % (Auto) % Lymph % (Auto) % [place] % (Auto) % Eos % (Auto) % Baso % (Auto) % Neut # (Auto) (1.40-6.50) K/uL Lymph # (Auto) (1.20-3.40) K/uL [place] # (Auto) (0.11-0.59) K/uL Eos # (Auto) (0.00-0.50) K/uL Baso # (Auto) (0.00-0.20) K/uL Immature Gran # (Auto) (0.01-0.20) K/uL Absolute Nucleated RBC (0.00-0.12) K/uL Nucleated RBC % (auto) % Neutrophils % (Manual) % Lymphocytes % (Manual) % Monocytes % (Manual) % Eosinophils % (Manual) % Metamyelocytes % (Man) % Neutrophils # (Manual) (1.40-6.50) K/uL Total Absolute Neuts (1.4-6.5) K/uL Lymphocytes # (Manual) (1.2-3.4) K/uL Total Abs Lymphocytes (1.2-3.4) K/uL Monocytes # (Manual) (0.11-0.59) K/uL Eosinophils # (Manual) (0-0.50) K/uL Metamyelocytes # (Man) (0-0) K/uL Hyposegmented Neuts Toxic Granulation Toxic Vacuolation Platelet Estimate (Normal) Polychromasia Target Cells PT (9.0-12.0) Seconds INR (0.9-1.1) APTT (21-31) Seconds PTT Ratio Fibrinogen (184-400) mg/dl Heparin Anti-Xa, Unfract 0.28 L 0.28 L (0.3-0.7) IU/ml Sodium (136-145) mmol/L Potassium (3.5-5.1) mmol/L Chloride (98-107) mmol/L Carbon Dioxide (21-32) mmol/L Anion Gap (3-11) BUN (6-23) mg/dl Creatinine (0.6-1.2) mg/dl Est Cr Clr Drug Dosing ml/min eGFR BUN/Creatinine Ratio (10-20) Glucose (70-99(Fasting)) mg/dl POC Glucose 112 H (70-99) mg/dl Lactate (0.4-2.0) mmol/L Calcium (8.6-10.3) mg/dl Phosphorus (2.5-4.9) mg/dl Magnesium (1.7-2.4) mg/dl Total Bilirubin (0.2-1.0) mg/dl Direct Bilirubin (0-0.2) mg/dl AST (13-39) U/L ALT (7-52) U/L Alkaline Phosphatase (34-104) U/L Troponin I High Sens (0-14) pg/ml B-Natriuretic Peptide (0-100) pg/ml Total Protein (6.0-8.3) gm/dl Albumin (3.4-5.0) gm/dl Globulin (2.5-4.0) gm/dl Albumin/Globulin Ratio (0.9-2) Lipase (11-82) U/L CA 125 Antigen (<35) U/mL Procalcitonin (0-0.5) ng/ml TSH (0.300-4.500) uIu/ml Free T4 (0.61-1.60) ng/dl Urine Color Urine Appearance (Clear) Urine pH (4.5-7.5) Ur Specific [place] (1.000-1.030) Urine Protein (Negative) Urine Glucose (UA) (Negative) Urine Ketones (Negative) Urine Blood (Negative) Urine Nitrite (Negative) Urine Bilirubin (Negative) Urine Urobilinogen (Negative) Ur Leukocyte Esterase (Negative) Urine WBC (Auto) (0-5) /hpf Urine RBC (Auto) (0-2) /hpf U Hyaline Cast (Auto) (0-2) /lpf U Epithel Cells (Auto) (0-2) /hpf Urine Bacteria (Auto) (None Seen) Stl C. diff Tox B Gene (Neg) Adenovirus (PCR) (NotDetected) B. pertussis DNA (PCR) (NotDetected) B.parapertussis DNA PCR (NotDetected) C. pneumoniae DNA (PCR) (NotDetected) Coronavirus OC43 (PCR) (NotDetected) Coronavirus HKU1 (PCR) (NotDetected) Coronavirus 229E (PCR) (NotDetected) SARS-CoV-2 (PCR) (NotDetected) Coronavirus NL63 (PCR) (NotDetected) Human Metapneumovir PCR (NotDetected) Influenza Type A (PCR) (NotDetected) Influenza Type B (PCR) (NotDetected) M. pneumoniae (PCR) (NotDetected) Parainfluenza 1 (PCR) (NotDetected) Parainfluenza 2 (PCR) (NotDetected) Parainfluenza 3 (PCR) (NotDetected) Parainfluenza 4 (PCR) (NotDetected) RSV (PCR) (NotDetected) Entero/Rhino (PCR) (NotDetected) Blood Type Blood Type Recheck Antibody Screen Crossmatch 01/24/25 01/24/25 01/24/25 Range/Units 16:17 11:31 08:14 WBC (4.8-10.8) K/ul RBC (4.20-5.40) M/uL Hgb (12.0-16.0) g/dl Hct (37.0-47.0) % MCV (80.0-100.0) fL MCH (25.0-34.0) pg MCHC (32.0-36.0) g/dL RDW Std Deviation (36.4-46.3) fL RDW Coeff of Sol (11.5-14.5) % Plt Count (130-400) K/uL MPV (9.4-12.4) fL Immature Gran % (Auto) % Neut % (Auto) % Lymph % (Auto) % [place] % (Auto) % Eos % (Auto) % Baso % (Auto) % Neut # (Auto) (1.40-6.50) K/uL Lymph # (Auto) (1.20-3.40) K/uL [place] # (Auto) (0.11-0.59) K/uL Eos # (Auto) (0.00-0.50) K/uL Baso # (Auto) (0.00-0.20) K/uL Immature Gran # (Auto) (0.01-0.20) K/uL Absolute Nucleated RBC (0.00-0.12) K/uL Nucleated RBC % (auto) % Neutrophils % (Manual) % Lymphocytes % (Manual) % Monocytes % (Manual) % Eosinophils % (Manual) % Metamyelocytes % (Man) % Neutrophils # (Manual) (1.40-6.50) K/uL Total Absolute Neuts (1.4-6.5) K/uL Lymphocytes # (Manual) (1.2-3.4) K/uL Total Abs Lymphocytes (1.2-3.4) K/uL Monocytes # (Manual) (0.11-0.59) K/uL Eosinophils # (Manual) (0-0.50) K/uL Metamyelocytes # (Man) (0-0) K/uL Hyposegmented Neuts Toxic Granulation Toxic Vacuolation Platelet Estimate (Normal) Polychromasia Target Cells PT (9.0-12.0) Seconds INR (0.9-1.1) APTT (21-31) Seconds PTT Ratio Fibrinogen (184-400) mg/dl Heparin Anti-Xa, Unfract 0.16 L (0.3-0.7) IU/ml Sodium (136-145) mmol/L Potassium (3.5-5.1) mmol/L Chloride (98-107) mmol/L Carbon Dioxide (21-32) mmol/L Anion Gap (3-11) BUN (6-23) mg/dl Creatinine (0.6-1.2) mg/dl Est Cr Clr Drug Dosing ml/min eGFR BUN/Creatinine Ratio (10-20) Glucose (70-99(Fasting)) mg/dl POC Glucose 120 H 207 H (70-99) mg/dl Lactate (0.4-2.0) mmol/L Calcium (8.6-10.3) mg/dl Phosphorus (2.5-4.9) mg/dl Magnesium (1.7-2.4) mg/dl Total Bilirubin (0.2-1.0) mg/dl Direct Bilirubin (0-0.2) mg/dl AST (13-39) U/L ALT (7-52) U/L Alkaline Phosphatase (34-104) U/L Troponin I High Sens (0-14) pg/ml B-Natriuretic Peptide (0-100) pg/ml Total Protein (6.0-8.3) gm/dl Albumin (3.4-5.0) gm/dl Globulin (2.5-4.0) gm/dl Albumin/Globulin Ratio (0.9-2) Lipase (11-82) U/L CA 125 Antigen (<35) U/mL Procalcitonin (0-0.5) ng/ml TSH (0.300-4.500) uIu/ml Free T4 (0.61-1.60) ng/dl Urine Color Urine Appearance (Clear) Urine pH (4.5-7.5) Ur Specific [place] (1.000-1.030) Urine Protein (Negative) Urine Glucose (UA) (Negative) Urine Ketones (Negative) Urine Blood (Negative) Urine Nitrite (Negative) Urine Bilirubin (Negative) Urine Urobilinogen (Negative) Ur Leukocyte Esterase (Negative) Urine WBC (Auto) (0-5) /hpf Urine RBC (Auto) (0-2) /hpf U Hyaline Cast (Auto) (0-2) /lpf U Epithel Cells (Auto) (0-2) /hpf Urine Bacteria (Auto) (None Seen) Stl C. diff Tox B Gene (Neg) Adenovirus (PCR) (NotDetected) B. pertussis DNA (PCR) (NotDetected) B.parapertussis DNA PCR (NotDetected) C. pneumoniae DNA (PCR) (NotDetected) Coronavirus OC43 (PCR) (NotDetected) Coronavirus HKU1 (PCR) (NotDetected) Coronavirus 229E (PCR) (NotDetected) SARS-CoV-2 (PCR) (NotDetected) Coronavirus NL63 (PCR) (NotDetected) Human Metapneumovir PCR (NotDetected) Influenza Type A (PCR) (NotDetected) Influenza Type B (PCR) (NotDetected) M. pneumoniae (PCR) (NotDetected) Parainfluenza 1 (PCR) (NotDetected) Parainfluenza 2 (PCR) (NotDetected) Parainfluenza 3 (PCR) (NotDetected) Parainfluenza 4 (PCR) (NotDetected) RSV (PCR) (NotDetected) Entero/Rhino (PCR) (NotDetected) Blood Type Blood Type Recheck Antibody Screen Crossmatch 01/24/25 01/24/25 01/24/25 Range/Units 07:19 06:45 04:36 WBC 0.83 L* 1.00 L D (4.8-10.8) K/ul RBC 2.63 L 2.68 L (4.20-5.40) M/uL Hgb 7.3 L 7.5 L (12.0-16.0) g/dl Hct 22.0 L 22.5 L (37.0-47.0) % MCV 83.7 84.0 (80.0-100.0) fL MCH 27.8 28.0 (25.0-34.0) pg MCHC 33.2 33.3 (32.0-36.0) g/dL RDW Std Deviation 48.6 H 49.6 H (36.4-46.3) fL RDW Coeff of Sol 16.3 H 16.3 H (11.5-14.5) % Plt Count 90 L 100 L (130-400) K/uL MPV 11.3 12.1 (9.4-12.4) fL Immature Gran % (Auto) % Neut % (Auto) % Lymph % (Auto) % [place] % (Auto) % Eos % (Auto) % Baso % (Auto) % Neut # (Auto) (1.40-6.50) K/uL Lymph # (Auto) (1.20-3.40) K/uL [place] # (Auto) (0.11-0.59) K/uL Eos # (Auto) (0.00-0.50) K/uL Baso # (Auto) (0.00-0.20) K/uL Immature Gran # (Auto) (0.01-0.20) K/uL Absolute Nucleated RBC (0.00-0.12) K/uL Nucleated RBC % (auto) % Neutrophils % (Manual) 45 51 % Lymphocytes % (Manual) 53 47 % Monocytes % (Manual) 2 % Eosinophils % (Manual) 1 % Metamyelocytes % (Man) 1 % Neutrophils # (Manual) 0.37 L 0.51 L (1.40-6.50) K/uL Total Absolute Neuts 0.37 L* 0.51 L* (1.4-6.5) K/uL Lymphocytes # (Manual) 0.44 L 0.47 L (1.2-3.4) K/uL Total Abs Lymphocytes 0.44 L 0.47 L (1.2-3.4) K/uL Monocytes # (Manual) 0.02 L (0.11-0.59) K/uL Eosinophils # (Manual) 0.01 (0-0.50) K/uL Metamyelocytes # (Man) 0.01 H (0-0) K/uL Hyposegmented Neuts 1+ Toxic Granulation 1+ Toxic Vacuolation 1+ Platelet Estimate (Normal) Polychromasia 1+ Target Cells 1+ PT (9.0-12.0) Seconds INR (0.9-1.1) APTT (21-31) Seconds PTT Ratio Fibrinogen (184-400) mg/dl Heparin Anti-Xa, Unfract (0.3-0.7) IU/ml Sodium 130 L (136-145) mmol/L Potassium 4.0 (3.5-5.1) mmol/L Chloride 99 (98-107) mmol/L Carbon Dioxide 28 (21-32) mmol/L Anion Gap 3 (3-11) BUN 48 H (6-23) mg/dl Creatinine 1.31 H (0.6-1.2) mg/dl Est Cr Clr Drug Dosing 37.9 ml/min eGFR 44.66 BUN/Creatinine Ratio 36.6 H (10-20) Glucose 127 H (70-99(Fasting)) mg/dl POC Glucose 155 H (70-99) mg/dl Lactate (0.4-2.0) mmol/L Calcium 7.0 L (8.6-10.3) mg/dl Phosphorus (2.5-4.9) mg/dl Magnesium 2.1 (1.7-2.4) mg/dl Total Bilirubin 1.9 H (0.2-1.0) mg/dl Direct Bilirubin (0-0.2) mg/dl AST 107 H (13-39) U/L ALT 64 H (7-52) U/L Alkaline Phosphatase 276 H (34-104) U/L Troponin I High Sens (0-14) pg/ml B-Natriuretic Peptide (0-100) pg/ml Total Protein 4.2 L (6.0-8.3) gm/dl Albumin 1.9 L (3.4-5.0) gm/dl Globulin 2.3 L (2.5-4.0) gm/dl Albumin/Globulin Ratio 0.8 L (0.9-2) Lipase (11-82) U/L CA 125 Antigen (<35) U/mL Procalcitonin (0-0.5) ng/ml TSH (0.300-4.500) uIu/ml Free T4 (0.61-1.60) ng/dl Urine Color Urine Appearance (Clear) Urine pH (4.5-7.5) Ur Specific [place] (1.000-1.030) Urine Protein (Negative) Urine Glucose (UA) (Negative) Urine Ketones (Negative) Urine Blood (Negative) Urine Nitrite (Negative) Urine Bilirubin (Negative) Urine Urobilinogen (Negative) Ur Leukocyte Esterase (Negative) Urine WBC (Auto) (0-5) /hpf Urine RBC (Auto) (0-2) /hpf U Hyaline Cast (Auto) (0-2) /lpf U Epithel Cells (Auto) (0-2) /hpf Urine Bacteria (Auto) (None Seen) Stl C. diff Tox B Gene (Neg) Adenovirus (PCR) (NotDetected) B. pertussis DNA (PCR) (NotDetected) B.parapertussis DNA PCR (NotDetected) C. pneumoniae DNA (PCR) (NotDetected) Coronavirus OC43 (PCR) (NotDetected) Coronavirus HKU1 (PCR) (NotDetected) Coronavirus 229E (PCR) (NotDetected) SARS-CoV-2 (PCR) (NotDetected) Coronavirus NL63 (PCR) (NotDetected) Human Metapneumovir PCR (NotDetected) Influenza Type A (PCR) (NotDetected) Influenza Type B (PCR) (NotDetected) M. pneumoniae (PCR) (NotDetected) Parainfluenza 1 (PCR) (NotDetected) Parainfluenza 2 (PCR) (NotDetected) Parainfluenza 3 (PCR) (NotDetected) Parainfluenza 4 (PCR) (NotDetected) RSV (PCR) (NotDetected) Entero/Rhino (PCR) (NotDetected) Blood Type Blood Type Recheck Antibody Screen Crossmatch 01/24/25 01/23/25 01/23/25 Range/Units 01:13 20:42 16:19 WBC (4.8-10.8) K/ul RBC (4.20-5.40) M/uL Hgb (12.0-16.0) g/dl Hct (37.0-47.0) % MCV (80.0-100.0) fL MCH (25.0-34.0) pg MCHC (32.0-36.0) g/dL RDW Std Deviation (36.4-46.3) fL RDW Coeff of Sol (11.5-14.5) % Plt Count (130-400) K/uL MPV (9.4-12.4) fL Immature Gran % (Auto) % Neut % (Auto) % Lymph % (Auto) % [place] % (Auto) % Eos % (Auto) % Baso % (Auto) % Neut # (Auto) (1.40-6.50) K/uL Lymph # (Auto) (1.20-3.40) K/uL [place] # (Auto) (0.11-0.59) K/uL Eos # (Auto) (0.00-0.50) K/uL Baso # (Auto) (0.00-0.20) K/uL Immature Gran # (Auto) (0.01-0.20) K/uL Absolute Nucleated RBC (0.00-0.12) K/uL Nucleated RBC % (auto) % Neutrophils % (Manual) % Lymphocytes % (Manual) % Monocytes % (Manual) % Eosinophils % (Manual) % Metamyelocytes % (Man) % Neutrophils # (Manual) (1.40-6.50) K/uL Total Absolute Neuts (1.4-6.5) K/uL Lymphocytes # (Manual) (1.2-3.4) K/uL Total Abs Lymphocytes (1.2-3.4) K/uL Monocytes # (Manual) (0.11-0.59) K/uL Eosinophils # (Manual) (0-0.50) K/uL Metamyelocytes # (Man) (0-0) K/uL Hyposegmented Neuts Toxic Granulation Toxic Vacuolation Platelet Estimate (Normal) Polychromasia Target Cells PT (9.0-12.0) Seconds INR (0.9-1.1) APTT (21-31) Seconds PTT Ratio Fibrinogen (184-400) mg/dl Heparin Anti-Xa, Unfract 0.23 L (0.3-0.7) IU/ml Sodium (136-145) mmol/L Potassium (3.5-5.1) mmol/L Chloride (98-107) mmol/L Carbon Dioxide (21-32) mmol/L Anion Gap (3-11) BUN (6-23) mg/dl Creatinine (0.6-1.2) mg/dl Est Cr Clr Drug Dosing ml/min eGFR BUN/Creatinine Ratio (10-20) Glucose (70-99(Fasting)) mg/dl POC Glucose 162 H 164 H (70-99) mg/dl Lactate (0.4-2.0) mmol/L Calcium (8.6-10.3) mg/dl Phosphorus (2.5-4.9) mg/dl Magnesium (1.7-2.4) mg/dl Total Bilirubin (0.2-1.0) mg/dl Direct Bilirubin (0-0.2) mg/dl AST (13-39) U/L ALT (7-52) U/L Alkaline Phosphatase (34-104) U/L Troponin I High Sens (0-14) pg/ml B-Natriuretic Peptide (0-100) pg/ml Total Protein (6.0-8.3) gm/dl Albumin (3.4-5.0) gm/dl Globulin (2.5-4.0) gm/dl Albumin/Globulin Ratio (0.9-2) Lipase (11-82) U/L CA 125 Antigen (<35) U/mL Procalcitonin (0-0.5) ng/ml TSH (0.300-4.500) uIu/ml Free T4 (0.61-1.60) ng/dl Urine Color Urine Appearance (Clear) Urine pH (4.5-7.5) Ur Specific [place] (1.000-1.030) Urine Protein (Negative) Urine Glucose (UA) (Negative) Urine Ketones (Negative) Urine Blood (Negative) Urine Nitrite (Negative) Urine Bilirubin (Negative) Urine Urobilinogen (Negative) Ur Leukocyte Esterase (Negative) Urine WBC (Auto) (0-5) /hpf Urine RBC (Auto) (0-2) /hpf U Hyaline Cast (Auto) (0-2) /lpf U Epithel Cells (Auto) (0-2) /hpf Urine Bacteria (Auto) (None Seen) Stl C. diff Tox B Gene (Neg) Adenovirus (PCR) (NotDetected) B. pertussis DNA (PCR) (NotDetected) B.parapertussis DNA PCR (NotDetected) C. pneumoniae DNA (PCR) (NotDetected) Coronavirus OC43 (PCR) (NotDetected) Coronavirus HKU1 (PCR) (NotDetected) Coronavirus 229E (PCR) (NotDetected) SARS-CoV-2 (PCR) (NotDetected) Coronavirus NL63 (PCR) (NotDetected) Human Metapneumovir PCR (NotDetected) Influenza Type A (PCR) (NotDetected) Influenza Type B (PCR) (NotDetected) M. pneumoniae (PCR) (NotDetected) Parainfluenza 1 (PCR) (NotDetected) Parainfluenza 2 (PCR) (NotDetected) Parainfluenza 3 (PCR) (NotDetected) Parainfluenza 4 (PCR) (NotDetected) RSV (PCR) (NotDetected) Entero/Rhino (PCR) (NotDetected) Blood Type Blood Type Recheck Antibody Screen Crossmatch 01/23/25 01/23/25 01/23/25 Range/Units 11:23 11:06 07:24 WBC (4.8-10.8) K/ul RBC (4.20-5.40) M/uL Hgb (12.0-16.0) g/dl Hct (37.0-47.0) % MCV (80.0-100.0) fL MCH (25.0-34.0) pg MCHC (32.0-36.0) g/dL RDW Std Deviation (36.4-46.3) fL RDW Coeff of Sol (11.5-14.5) % Plt Count (130-400) K/uL MPV (9.4-12.4) fL Immature Gran % (Auto) % Neut % (Auto) % Lymph % (Auto) % [place] % (Auto) % Eos % (Auto) % Baso % (Auto) % Neut # (Auto) (1.40-6.50) K/uL Lymph # (Auto) (1.20-3.40) K/uL [place] # (Auto) (0.11-0.59) K/uL Eos # (Auto) (0.00-0.50) K/uL Baso # (Auto) (0.00-0.20) K/uL Immature Gran # (Auto) (0.01-0.20) K/uL Absolute Nucleated RBC (0.00-0.12) K/uL Nucleated RBC % (auto) % Neutrophils % (Manual) % Lymphocytes % (Manual) % Monocytes % (Manual) % Eosinophils % (Manual) % Metamyelocytes % (Man) % Neutrophils # (Manual) (1.40-6.50) K/uL Total Absolute Neuts (1.4-6.5) K/uL Lymphocytes # (Manual) (1.2-3.4) K/uL Total Abs Lymphocytes (1.2-3.4) K/uL Monocytes # (Manual) (0.11-0.59) K/uL Eosinophils # (Manual) (0-0.50) K/uL Metamyelocytes # (Man) (0-0) K/uL Hyposegmented Neuts Toxic Granulation Toxic Vacuolation Platelet Estimate (Normal) Polychromasia Target Cells PT (9.0-12.0) Seconds INR (0.9-1.1) APTT (21-31) Seconds PTT Ratio Fibrinogen (184-400) mg/dl Heparin Anti-Xa, Unfract < 0.10 L (0.3-0.7) IU/ml Sodium (136-145) mmol/L Potassium (3.5-5.1) mmol/L Chloride (98-107) mmol/L Carbon Dioxide (21-32) mmol/L Anion Gap (3-11) BUN (6-23) mg/dl Creatinine (0.6-1.2) mg/dl Est Cr Clr Drug Dosing ml/min eGFR BUN/Creatinine Ratio (10-20) Glucose (70-99(Fasting)) mg/dl POC Glucose 210 H 191 H (70-99) mg/dl Lactate (0.4-2.0) mmol/L Calcium (8.6-10.3) mg/dl Phosphorus (2.5-4.9) mg/dl Magnesium (1.7-2.4) mg/dl Total Bilirubin (0.2-1.0) mg/dl Direct Bilirubin (0-0.2) mg/dl AST (13-39) U/L ALT (7-52) U/L Alkaline Phosphatase (34-104) U/L Troponin I High Sens (0-14) pg/ml B-Natriuretic Peptide (0-100) pg/ml Total Protein (6.0-8.3) gm/dl Albumin (3.4-5.0) gm/dl Globulin (2.5-4.0) gm/dl Albumin/Globulin Ratio (0.9-2) Lipase (11-82) U/L CA 125 Antigen 1921 H (<35) U/mL Procalcitonin (0-0.5) ng/ml TSH (0.300-4.500) uIu/ml Free T4 (0.61-1.60) ng/dl Urine Color Urine Appearance (Clear) Urine pH (4.5-7.5) Ur Specific [place] (1.000-1.030) Urine Protein (Negative) Urine Glucose (UA) (Negative) Urine Ketones (Negative) Urine Blood (Negative) Urine Nitrite (Negative) Urine Bilirubin (Negative) Urine Urobilinogen (Negative) Ur Leukocyte Esterase (Negative) Urine WBC (Auto) (0-5) /hpf Urine RBC (Auto) (0-2) /hpf U Hyaline Cast (Auto) (0-2) /lpf U Epithel Cells (Auto) (0-2) /hpf Urine Bacteria (Auto) (None Seen) Stl C. diff Tox B Gene (Neg) Adenovirus (PCR) (NotDetected) B. pertussis DNA (PCR) (NotDetected) B.parapertussis DNA PCR (NotDetected) C. pneumoniae DNA (PCR) (NotDetected) Coronavirus OC43 (PCR) (NotDetected) Coronavirus HKU1 (PCR) (NotDetected) Coronavirus 229E (PCR) (NotDetected) SARS-CoV-2 (PCR) (NotDetected) Coronavirus NL63 (PCR) (NotDetected) Human Metapneumovir PCR (NotDetected) Influenza Type A (PCR) (NotDetected) Influenza Type B (PCR) (NotDetected) M. pneumoniae (PCR) (NotDetected) Parainfluenza 1 (PCR) (NotDetected) Parainfluenza 2 (PCR) (NotDetected) Parainfluenza 3 (PCR) (NotDetected) Parainfluenza 4 (PCR) (NotDetected) RSV (PCR) (NotDetected) Entero/Rhino (PCR) (NotDetected) Blood Type Blood Type Recheck Antibody Screen Crossmatch 01/23/25 01/23/25 01/22/25 Range/Units 05:30 04:38 21:18 WBC 6.42 (4.8-10.8) K/ul RBC 3.02 L (4.20-5.40) M/uL Hgb 8.4 L (12.0-16.0) g/dl Hct 25.4 L (37.0-47.0) % MCV 84.1 (80.0-100.0) fL MCH 27.8 (25.0-34.0) pg MCHC 33.1 (32.0-36.0) g/dL RDW Std Deviation 49.6 H (36.4-46.3) fL RDW Coeff of Sol 16.3 H (11.5-14.5) % Plt Count 144 (130-400) K/uL MPV 10.7 (9.4-12.4) fL Immature Gran % (Auto) % Neut % (Auto) % Lymph % (Auto) % [place] % (Auto) % Eos % (Auto) % Baso % (Auto) % Neut # (Auto) (1.40-6.50) K/uL Lymph # (Auto) (1.20-3.40) K/uL [place] # (Auto) (0.11-0.59) K/uL Eos # (Auto) (0.00-0.50) K/uL Baso # (Auto) (0.00-0.20) K/uL Immature Gran # (Auto) (0.01-0.20) K/uL Absolute Nucleated RBC 0.02 (0.00-0.12) K/uL Nucleated RBC % (auto) 0.3 % Neutrophils % (Manual) % Lymphocytes % (Manual) % Monocytes % (Manual) % Eosinophils % (Manual) % Metamyelocytes % (Man) % Neutrophils # (Manual) (1.40-6.50) K/uL Total Absolute Neuts (1.4-6.5) K/uL Lymphocytes # (Manual) (1.2-3.4) K/uL Total Abs Lymphocytes (1.2-3.4) K/uL Monocytes # (Manual) (0.11-0.59) K/uL Eosinophils # (Manual) (0-0.50) K/uL Metamyelocytes # (Man) (0-0) K/uL Hyposegmented Neuts Toxic Granulation Toxic Vacuolation Platelet Estimate (Normal) Polychromasia Target Cells PT 18.9 H (9.0-12.0) Seconds INR 1.8 H (0.9-1.1) APTT 46 H (21-31) Seconds PTT Ratio 1.7 Fibrinogen (184-400) mg/dl Heparin Anti-Xa, Unfract 0.33 < 0.10 L (0.3-0.7) IU/ml Sodium 135 L (136-145) mmol/L Potassium 4.2 (3.5-5.1) mmol/L Chloride 103 (98-107) mmol/L Carbon Dioxide 27 (21-32) mmol/L Anion Gap 5 (3-11) BUN 47 H (6-23) mg/dl Creatinine 1.22 H (0.6-1.2) mg/dl Est Cr Clr Drug Dosing 40.1 ml/min eGFR 48.64 BUN/Creatinine Ratio 38.5 H (10-20) Glucose 153 H (70-99(Fasting)) mg/dl POC Glucose (70-99) mg/dl Lactate (0.4-2.0) mmol/L Calcium 7.4 L (8.6-10.3) mg/dl Phosphorus (2.5-4.9) mg/dl Magnesium 1.8 (1.7-2.4) mg/dl Total Bilirubin 1.3 H (0.2-1.0) mg/dl Direct Bilirubin 0.7 H (0-0.2) mg/dl AST 99 H (13-39) U/L ALT 69 H (7-52) U/L Alkaline Phosphatase 245 H (34-104) U/L Troponin I High Sens (0-14) pg/ml B-Natriuretic Peptide (0-100) pg/ml Total Protein 3.9 L (6.0-8.3) gm/dl Albumin 1.8 L (3.4-5.0) gm/dl Globulin (2.5-4.0) gm/dl Albumin/Globulin Ratio (0.9-2) Lipase (11-82) U/L CA 125 Antigen (<35) U/mL Procalcitonin (0-0.5) ng/ml TSH (0.300-4.500) uIu/ml Free T4 (0.61-1.60) ng/dl Urine Color Urine Appearance (Clear) Urine pH (4.5-7.5) Ur Specific [place] (1.000-1.030) Urine Protein (Negative) Urine Glucose (UA) (Negative) Urine Ketones (Negative) Urine Blood (Negative) Urine Nitrite (Negative) Urine Bilirubin (Negative) Urine Urobilinogen (Negative) Ur Leukocyte Esterase (Negative) Urine WBC (Auto) (0-5) /hpf Urine RBC (Auto) (0-2) /hpf U Hyaline Cast (Auto) (0-2) /lpf U Epithel Cells (Auto) (0-2) /hpf Urine Bacteria (Auto) (None Seen) Stl C. diff Tox B Gene (Neg) Adenovirus (PCR) (NotDetected) B. pertussis DNA (PCR) (NotDetected) B.parapertussis DNA PCR (NotDetected) C. pneumoniae DNA (PCR) (NotDetected) Coronavirus OC43 (PCR) (NotDetected) Coronavirus HKU1 (PCR) (NotDetected) Coronavirus 229E (PCR) (NotDetected) SARS-CoV-2 (PCR) (NotDetected) Coronavirus NL63 (PCR) (NotDetected) Human Metapneumovir PCR (NotDetected) Influenza Type A (PCR) (NotDetected) Influenza Type B (PCR) (NotDetected) M. pneumoniae (PCR) (NotDetected) Parainfluenza 1 (PCR) (NotDetected) Parainfluenza 2 (PCR) (NotDetected) Parainfluenza 3 (PCR) (NotDetected) Parainfluenza 4 (PCR) (NotDetected) RSV (PCR) (NotDetected) Entero/Rhino (PCR) (NotDetected) Blood Type Blood Type Recheck Antibody Screen Crossmatch 01/22/25 01/22/25 01/22/25 Range/Units 20:10 20:06 18:02 WBC (4.8-10.8) K/ul RBC (4.20-5.40) M/uL Hgb (12.0-16.0) g/dl Hct (37.0-47.0) % MCV (80.0-100.0) fL MCH (25.0-34.0) pg MCHC (32.0-36.0) g/dL RDW Std Deviation (36.4-46.3) fL RDW Coeff of Sol (11.5-14.5) % Plt Count (130-400) K/uL MPV (9.4-12.4) fL Immature Gran % (Auto) % Neut % (Auto) % Lymph % (Auto) % [place] % (Auto) % Eos % (Auto) % Baso % (Auto) % Neut # (Auto) (1.40-6.50) K/uL Lymph # (Auto) (1.20-3.40) K/uL [place] # (Auto) (0.11-0.59) K/uL Eos # (Auto) (0.00-0.50) K/uL Baso # (Auto) (0.00-0.20) K/uL Immature Gran # (Auto) (0.01-0.20) K/uL Absolute Nucleated RBC (0.00-0.12) K/uL Nucleated RBC % (auto) % Neutrophils % (Manual) % Lymphocytes % (Manual) % Monocytes % (Manual) % Eosinophils % (Manual) % Metamyelocytes % (Man) % Neutrophils # (Manual) (1.40-6.50) K/uL Total Absolute Neuts (1.4-6.5) K/uL Lymphocytes # (Manual) (1.2-3.4) K/uL Total Abs Lymphocytes (1.2-3.4) K/uL Monocytes # (Manual) (0.11-0.59) K/uL Eosinophils # (Manual) (0-0.50) K/uL Metamyelocytes # (Man) (0-0) K/uL Hyposegmented Neuts Toxic Granulation Toxic Vacuolation Platelet Estimate (Normal) Polychromasia Target Cells PT (9.0-12.0) Seconds INR (0.9-1.1) APTT 51 H (21-31) Seconds PTT Ratio 1.9 Fibrinogen (184-400) mg/dl Heparin Anti-Xa, Unfract (0.3-0.7) IU/ml Sodium (136-145) mmol/L Potassium (3.5-5.1) mmol/L Chloride (98-107) mmol/L Carbon Dioxide (21-32) mmol/L Anion Gap (3-11) BUN (6-23) mg/dl Creatinine (0.6-1.2) mg/dl Est Cr Clr Drug Dosing ml/min eGFR BUN/Creatinine Ratio (10-20) Glucose (70-99(Fasting)) mg/dl POC Glucose 133 H (70-99) mg/dl Lactate (0.4-2.0) mmol/L Calcium (8.6-10.3) mg/dl Phosphorus (2.5-4.9) mg/dl Magnesium (1.7-2.4) mg/dl Total Bilirubin (0.2-1.0) mg/dl Direct Bilirubin (0-0.2) mg/dl AST (13-39) U/L ALT (7-52) U/L Alkaline Phosphatase (34-104) U/L Troponin I High Sens (0-14) pg/ml B-Natriuretic Peptide (0-100) pg/ml Total Protein (6.0-8.3) gm/dl Albumin (3.4-5.0) gm/dl Globulin (2.5-4.0) gm/dl Albumin/Globulin Ratio (0.9-2) Lipase (11-82) U/L CA 125 Antigen (<35) U/mL Procalcitonin (0-0.5) ng/ml TSH (0.300-4.500) uIu/ml Free T4 (0.61-1.60) ng/dl Urine Color Urine Appearance (Clear) Urine pH (4.5-7.5) Ur Specific [place] (1.000-1.030) Urine Protein (Negative) Urine Glucose (UA) (Negative) Urine Ketones (Negative) Urine Blood (Negative) Urine Nitrite (Negative) Urine Bilirubin (Negative) Urine Urobilinogen (Negative) Ur Leukocyte Esterase (Negative) Urine WBC (Auto) (0-5) /hpf Urine RBC (Auto) (0-2) /hpf U Hyaline Cast (Auto) (0-2) /lpf U Epithel Cells (Auto) (0-2) /hpf Urine Bacteria (Auto) (None Seen) Stl C. diff Tox B Gene (Neg) Adenovirus (PCR) (NotDetected) B. pertussis DNA (PCR) (NotDetected) B.parapertussis DNA PCR (NotDetected) C. pneumoniae DNA (PCR) (NotDetected) Coronavirus OC43 (PCR) (NotDetected) Coronavirus HKU1 (PCR) (NotDetected) Coronavirus 229E (PCR) (NotDetected) SARS-CoV-2 (PCR) (NotDetected) Coronavirus NL63 (PCR) (NotDetected) Human Metapneumovir PCR (NotDetected) Influenza Type A (PCR) (NotDetected) Influenza Type B (PCR) (NotDetected) M. pneumoniae (PCR) (NotDetected) Parainfluenza 1 (PCR) (NotDetected) Parainfluenza 2 (PCR) (NotDetected) Parainfluenza 3 (PCR) (NotDetected) Parainfluenza 4 (PCR) (NotDetected) RSV (PCR) (NotDetected) Entero/Rhino (PCR) (NotDetected) Blood Type Blood Type Recheck A Positive Antibody Screen Crossmatch 01/22/25 01/22/25 01/22/25 Range/Units 17:52 16:50 15:44 WBC 9.13 9.43 (4.8-10.8) K/ul RBC 2.96 L 2.93 L (4.20-5.40) M/uL Hgb 8.3 L 8.3 L (12.0-16.0) g/dl Hct 25.7 L 25.2 L (37.0-47.0) % MCV 86.8 86.0 (80.0-100.0) fL MCH 28.0 28.3 (25.0-34.0) pg MCHC 32.3 32.9 (32.0-36.0) g/dL RDW Std Deviation 54.0 H 54.7 H (36.4-46.3) fL RDW Coeff of Sol 17.3 H 17.3 H (11.5-14.5) % Plt Count 188 190 (130-400) K/uL MPV 10.7 10.8 (9.4-12.4) fL Immature Gran % (Auto) % Neut % (Auto) % Lymph % (Auto) % [place] % (Auto) % Eos % (Auto) % Baso % (Auto) % Neut # (Auto) (1.40-6.50) K/uL Lymph # (Auto) (1.20-3.40) K/uL [place] # (Auto) (0.11-0.59) K/uL Eos # (Auto) (0.00-0.50) K/uL Baso # (Auto) (0.00-0.20) K/uL Immature Gran # (Auto) (0.01-0.20) K/uL Absolute Nucleated RBC 0.02 (0.00-0.12) K/uL Nucleated RBC % (auto) 0.2 % Neutrophils % (Manual) % Lymphocytes % (Manual) % Monocytes % (Manual) % Eosinophils % (Manual) % Metamyelocytes % (Man) % Neutrophils # (Manual) (1.40-6.50) K/uL Total Absolute Neuts (1.4-6.5) K/uL Lymphocytes # (Manual) (1.2-3.4) K/uL Total Abs Lymphocytes (1.2-3.4) K/uL Monocytes # (Manual) (0.11-0.59) K/uL Eosinophils # (Manual) (0-0.50) K/uL Metamyelocytes # (Man) (0-0) K/uL Hyposegmented Neuts Toxic Granulation Toxic Vacuolation Platelet Estimate (Normal) Polychromasia Target Cells PT 19.7 H (9.0-12.0) Seconds INR 1.9 H (0.9-1.1) APTT > 139 H* (21-31) Seconds PTT Ratio > 4.9 Fibrinogen 370 (184-400) mg/dl Heparin Anti-Xa, Unfract (0.3-0.7) IU/ml Sodium (136-145) mmol/L Potassium (3.5-5.1) mmol/L Chloride (98-107) mmol/L Carbon Dioxide (21-32) mmol/L Anion Gap (3-11) BUN (6-23) mg/dl Creatinine (0.6-1.2) mg/dl Est Cr Clr Drug Dosing ml/min eGFR BUN/Creatinine Ratio (10-20) Glucose (70-99(Fasting)) mg/dl POC Glucose 143 H (70-99) mg/dl Lactate (0.4-2.0) mmol/L Calcium (8.6-10.3) mg/dl Phosphorus (2.5-4.9) mg/dl Magnesium (1.7-2.4) mg/dl Total Bilirubin (0.2-1.0) mg/dl Direct Bilirubin (0-0.2) mg/dl AST (13-39) U/L ALT (7-52) U/L Alkaline Phosphatase (34-104) U/L Troponin I High Sens 286.5 H* (0-14) pg/ml B-Natriuretic Peptide (0-100) pg/ml Total Protein (6.0-8.3) gm/dl Albumin (3.4-5.0) gm/dl Globulin (2.5-4.0) gm/dl Albumin/Globulin Ratio (0.9-2) Lipase (11-82) U/L CA 125 Antigen (<35) U/mL Procalcitonin (0-0.5) ng/ml TSH (0.300-4.500) uIu/ml Free T4 (0.61-1.60) ng/dl Urine Color Urine Appearance (Clear) Urine pH (4.5-7.5) Ur Specific [place] (1.000-1.030) Urine Protein (Negative) Urine Glucose (UA) (Negative) Urine Ketones (Negative) Urine Blood (Negative) Urine Nitrite (Negative) Urine Bilirubin (Negative) Urine Urobilinogen (Negative) Ur Leukocyte Esterase (Negative) Urine WBC (Auto) (0-5) /hpf Urine RBC (Auto) (0-2) /hpf U Hyaline Cast (Auto) (0-2) /lpf U Epithel Cells (Auto) (0-2) /hpf Urine Bacteria (Auto) (None Seen) Stl C. diff Tox B Gene (Neg) Adenovirus (PCR) (NotDetected) B. pertussis DNA (PCR) (NotDetected) B.parapertussis DNA PCR (NotDetected) C. pneumoniae DNA (PCR) (NotDetected) Coronavirus OC43 (PCR) (NotDetected) Coronavirus HKU1 (PCR) (NotDetected) Coronavirus 229E (PCR) (NotDetected) SARS-CoV-2 (PCR) (NotDetected) Coronavirus NL63 (PCR) (NotDetected) Human Metapneumovir PCR (NotDetected) Influenza Type A (PCR) (NotDetected) Influenza Type B (PCR) (NotDetected) M. pneumoniae (PCR) (NotDetected) Parainfluenza 1 (PCR) (NotDetected) Parainfluenza 2 (PCR) (NotDetected) Parainfluenza 3 (PCR) (NotDetected) Parainfluenza 4 (PCR) (NotDetected) RSV (PCR) (NotDetected) Entero/Rhino (PCR) (NotDetected) Blood Type A Positive Blood Type Recheck Antibody Screen NEGATIVE Crossmatch See Detail 01/22/25 01/22/25 01/22/25 Range/Units 14:44 14:27 09:08 WBC 10.89 H (4.8-10.8) K/ul RBC 3.48 L (4.20-5.40) M/uL Hgb 9.8 L (12.0-16.0) g/dl Hct 29.8 L (37.0-47.0) % MCV 85.6 (80.0-100.0) fL MCH 28.2 (25.0-34.0) pg MCHC 32.9 (32.0-36.0) g/dL RDW Std Deviation 53.2 H (36.4-46.3) fL RDW Coeff of Sol 17.3 H (11.5-14.5) % Plt Count 219 (130-400) K/uL MPV 10.3 (9.4-12.4) fL Immature Gran % (Auto) 1.5 % Neut % (Auto) 96.7 % Lymph % (Auto) 1.2 % [place] % (Auto) 0.5 % Eos % (Auto) 0.0 % Baso % (Auto) 0.1 % Neut # (Auto) 10.54 H (1.40-6.50) K/uL Lymph # (Auto) 0.13 L (1.20-3.40) K/uL [place] # (Auto) 0.05 L (0.11-0.59) K/uL Eos # (Auto) 0.00 (0.00-0.50) K/uL Baso # (Auto) 0.01 (0.00-0.20) K/uL Immature Gran # (Auto) 0.16 (0.01-0.20) K/uL Absolute Nucleated RBC 0.02 (0.00-0.12) K/uL Nucleated RBC % (auto) 0.2 % Neutrophils % (Manual) % Lymphocytes % (Manual) % Monocytes % (Manual) % Eosinophils % (Manual) % Metamyelocytes % (Man) % Neutrophils # (Manual) (1.40-6.50) K/uL Total Absolute Neuts (1.4-6.5) K/uL Lymphocytes # (Manual) (1.2-3.4) K/uL Total Abs Lymphocytes (1.2-3.4) K/uL Monocytes # (Manual) (0.11-0.59) K/uL Eosinophils # (Manual) (0-0.50) K/uL Metamyelocytes # (Man) (0-0) K/uL Hyposegmented Neuts Toxic Granulation Toxic Vacuolation 1+ Platelet Estimate (Normal) Polychromasia Target Cells PT (9.0-12.0) Seconds INR (0.9-1.1) APTT (21-31) Seconds PTT Ratio Fibrinogen (184-400) mg/dl Heparin Anti-Xa, Unfract > 1.50 H* (0.3-0.7) IU/ml Sodium 136 (136-145) mmol/L Potassium 3.9 (3.5-5.1) mmol/L Chloride 104 (98-107) mmol/L Carbon Dioxide 28 (21-32) mmol/L Anion Gap 4 (3-11) BUN 44 H (6-23) mg/dl Creatinine 1.13 (0.6-1.2) mg/dl Est Cr Clr Drug Dosing 46.1 ml/min eGFR 53.32 BUN/Creatinine Ratio 38.9 H (10-20) Glucose 119 H (70-99(Fasting)) mg/dl POC Glucose 134 H 97 (70-99) mg/dl Lactate (0.4-2.0) mmol/L Calcium 7.4 L (8.6-10.3) mg/dl Phosphorus (2.5-4.9) mg/dl Magnesium 1.8 (1.7-2.4) mg/dl Total Bilirubin 1.5 H (0.2-1.0) mg/dl Direct Bilirubin 0.9 H (0-0.2) mg/dl AST 160 H (13-39) U/L ALT 98 H (7-52) U/L Alkaline Phosphatase 386 H (34-104) U/L Troponin I High Sens 322.4 H* D (0-14) pg/ml B-Natriuretic Peptide (0-100) pg/ml Total Protein 4.4 L (6.0-8.3) gm/dl Albumin 2.1 L (3.4-5.0) gm/dl Globulin (2.5-4.0) gm/dl Albumin/Globulin Ratio (0.9-2) Lipase (11-82) U/L CA 125 Antigen (<35) U/mL Procalcitonin (0-0.5) ng/ml TSH (0.300-4.500) uIu/ml Free T4 (0.61-1.60) ng/dl Urine Color Urine Appearance (Clear) Urine pH (4.5-7.5) Ur Specific [place] (1.000-1.030) Urine Protein (Negative) Urine Glucose (UA) (Negative) Urine Ketones (Negative) Urine Blood (Negative) Urine Nitrite (Negative) Urine Bilirubin (Negative) Urine Urobilinogen (Negative) Ur Leukocyte Esterase (Negative) Urine WBC (Auto) (0-5) /hpf Urine RBC (Auto) (0-2) /hpf U Hyaline Cast (Auto) (0-2) /lpf U Epithel Cells (Auto) (0-2) /hpf Urine Bacteria (Auto) (None Seen) Stl C. diff Tox B Gene (Neg) Adenovirus (PCR) (NotDetected) B. pertussis DNA (PCR) (NotDetected) B.parapertussis DNA PCR (NotDetected) C. pneumoniae DNA (PCR) (NotDetected) Coronavirus OC43 (PCR) (NotDetected) Coronavirus HKU1 (PCR) (NotDetected) Coronavirus 229E (PCR) (NotDetected) SARS-CoV-2 (PCR) (NotDetected) Coronavirus NL63 (PCR) (NotDetected) Human Metapneumovir PCR (NotDetected) Influenza Type A (PCR) (NotDetected) Influenza Type B (PCR) (NotDetected) M. pneumoniae (PCR) (NotDetected) Parainfluenza 1 (PCR) (NotDetected) Parainfluenza 2 (PCR) (NotDetected) Parainfluenza 3 (PCR) (NotDetected) Parainfluenza 4 (PCR) (NotDetected) RSV (PCR) (NotDetected) Entero/Rhino (PCR) (NotDetected) Blood Type Blood Type Recheck Antibody Screen Crossmatch 01/22/25 01/22/25 01/21/25 Range/Units 04:54 00:00 23:58 WBC (4.8-10.8) K/ul RBC (4.20-5.40) M/uL Hgb (12.0-16.0) g/dl Hct (37.0-47.0) % MCV (80.0-100.0) fL MCH (25.0-34.0) pg MCHC (32.0-36.0) g/dL RDW Std Deviation (36.4-46.3) fL RDW Coeff of Sol (11.5-14.5) % Plt Count (130-400) K/uL MPV (9.4-12.4) fL Immature Gran % (Auto) % Neut % (Auto) % Lymph % (Auto) % [place] % (Auto) % Eos % (Auto) % Baso % (Auto) % Neut # (Auto) (1.40-6.50) K/uL Lymph # (Auto) (1.20-3.40) K/uL [place] # (Auto) (0.11-0.59) K/uL Eos # (Auto) (0.00-0.50) K/uL Baso # (Auto) (0.00-0.20) K/uL Immature Gran # (Auto) (0.01-0.20) K/uL Absolute Nucleated RBC (0.00-0.12) K/uL Nucleated RBC % (auto) % Neutrophils % (Manual) % Lymphocytes % (Manual) % Monocytes % (Manual) % Eosinophils % (Manual) % Metamyelocytes % (Man) % Neutrophils # (Manual) (1.40-6.50) K/uL Total Absolute Neuts (1.4-6.5) K/uL Lymphocytes # (Manual) (1.2-3.4) K/uL Total Abs Lymphocytes (1.2-3.4) K/uL Monocytes # (Manual) (0.11-0.59) K/uL Eosinophils # (Manual) (0-0.50) K/uL Metamyelocytes # (Man) (0-0) K/uL Hyposegmented Neuts Toxic Granulation Toxic Vacuolation Platelet Estimate (Normal) Polychromasia Target Cells PT (9.0-12.0) Seconds INR (0.9-1.1) APTT (21-31) Seconds PTT Ratio Fibrinogen (184-400) mg/dl Heparin Anti-Xa, Unfract 0.35 (0.3-0.7) IU/ml Sodium (136-145) mmol/L Potassium (3.5-5.1) mmol/L Chloride (98-107) mmol/L Carbon Dioxide (21-32) mmol/L Anion Gap (3-11) BUN (6-23) mg/dl Creatinine (0.6-1.2) mg/dl Est Cr Clr Drug Dosing ml/min eGFR BUN/Creatinine Ratio (10-20) Glucose (70-99(Fasting)) mg/dl POC Glucose 119 H (70-99) mg/dl Lactate 1.3 (0.4-2.0) mmol/L Calcium (8.6-10.3) mg/dl Phosphorus (2.5-4.9) mg/dl Magnesium (1.7-2.4) mg/dl Total Bilirubin (0.2-1.0) mg/dl Direct Bilirubin (0-0.2) mg/dl AST (13-39) U/L ALT (7-52) U/L Alkaline Phosphatase (34-104) U/L Troponin I High Sens (0-14) pg/ml B-Natriuretic Peptide (0-100) pg/ml Total Protein (6.0-8.3) gm/dl Albumin (3.4-5.0) gm/dl Globulin (2.5-4.0) gm/dl Albumin/Globulin Ratio (0.9-2) Lipase (11-82) U/L CA 125 Antigen (<35) U/mL Procalcitonin (0-0.5) ng/ml TSH (0.300-4.500) uIu/ml Free T4 (0.61-1.60) ng/dl Urine Color Urine Appearance (Clear) Urine pH (4.5-7.5) Ur Specific [place] (1.000-1.030) Urine Protein (Negative) Urine Glucose (UA) (Negative) Urine Ketones (Negative) Urine Blood (Negative) Urine Nitrite (Negative) Urine Bilirubin (Negative) Urine Urobilinogen (Negative) Ur Leukocyte Esterase (Negative) Urine WBC (Auto) (0-5) /hpf Urine RBC (Auto) (0-2) /hpf U Hyaline Cast (Auto) (0-2) /lpf U Epithel Cells (Auto) (0-2) /hpf Urine Bacteria (Auto) (None Seen) Stl C. diff Tox B Gene (Neg) Adenovirus (PCR) (NotDetected) B. pertussis DNA (PCR) (NotDetected) B.parapertussis DNA PCR (NotDetected) C. pneumoniae DNA (PCR) (NotDetected) Coronavirus OC43 (PCR) (NotDetected) Coronavirus HKU1 (PCR) (NotDetected) Coronavirus 229E (PCR) (NotDetected) SARS-CoV-2 (PCR) (NotDetected) Coronavirus NL63 (PCR) (NotDetected) Human Metapneumovir PCR (NotDetected) Influenza Type A (PCR) (NotDetected) Influenza Type B (PCR) (NotDetected) M. pneumoniae (PCR) (NotDetected) Parainfluenza 1 (PCR) (NotDetected) Parainfluenza 2 (PCR) (NotDetected) Parainfluenza 3 (PCR) (NotDetected) Parainfluenza 4 (PCR) (NotDetected) RSV (PCR) (NotDetected) Entero/Rhino (PCR) (NotDetected) Blood Type Blood Type Recheck Antibody Screen Crossmatch 01/21/25 01/21/25 01/21/25 Range/Units 21:40 20:54 20:19 WBC (4.8-10.8) K/ul RBC (4.20-5.40) M/uL Hgb (12.0-16.0) g/dl Hct (37.0-47.0) % MCV (80.0-100.0) fL MCH (25.0-34.0) pg MCHC (32.0-36.0) g/dL RDW Std Deviation (36.4-46.3) fL RDW Coeff of Sol (11.5-14.5) % Plt Count (130-400) K/uL MPV (9.4-12.4) fL Immature Gran % (Auto) % Neut % (Auto) % Lymph % (Auto) % [place] % (Auto) % Eos % (Auto) % Baso % (Auto) % Neut # (Auto) (1.40-6.50) K/uL Lymph # (Auto) (1.20-3.40) K/uL [place] # (Auto) (0.11-0.59) K/uL Eos # (Auto) (0.00-0.50) K/uL Baso # (Auto) (0.00-0.20) K/uL Immature Gran # (Auto) (0.01-0.20) K/uL Absolute Nucleated RBC (0.00-0.12) K/uL Nucleated RBC % (auto) % Neutrophils % (Manual) % Lymphocytes % (Manual) % Monocytes % (Manual) % Eosinophils % (Manual) % Metamyelocytes % (Man) % Neutrophils # (Manual) (1.40-6.50) K/uL Total Absolute Neuts (1.4-6.5) K/uL Lymphocytes # (Manual) (1.2-3.4) K/uL Total Abs Lymphocytes (1.2-3.4) K/uL Monocytes # (Manual) (0.11-0.59) K/uL Eosinophils # (Manual) (0-0.50) K/uL Metamyelocytes # (Man) (0-0) K/uL Hyposegmented Neuts Toxic Granulation Toxic Vacuolation Platelet Estimate (Normal) Polychromasia Target Cells PT (9.0-12.0) Seconds INR (0.9-1.1) APTT (21-31) Seconds PTT Ratio Fibrinogen (184-400) mg/dl Heparin Anti-Xa, Unfract (0.3-0.7) IU/ml Sodium (136-145) mmol/L Potassium (3.5-5.1) mmol/L Chloride (98-107) mmol/L Carbon Dioxide (21-32) mmol/L Anion Gap (3-11) BUN (6-23) mg/dl Creatinine (0.6-1.2) mg/dl Est Cr Clr Drug Dosing ml/min eGFR BUN/Creatinine Ratio (10-20) Glucose (70-99(Fasting)) mg/dl POC Glucose 175 H (70-99) mg/dl Lactate 2.1 H* (0.4-2.0) mmol/L Calcium (8.6-10.3) mg/dl Phosphorus (2.5-4.9) mg/dl Magnesium (1.7-2.4) mg/dl Total Bilirubin (0.2-1.0) mg/dl Direct Bilirubin (0-0.2) mg/dl AST (13-39) U/L ALT (7-52) U/L Alkaline Phosphatase (34-104) U/L Troponin I High Sens (0-14) pg/ml B-Natriuretic Peptide (0-100) pg/ml Total Protein (6.0-8.3) gm/dl Albumin (3.4-5.0) gm/dl Globulin (2.5-4.0) gm/dl Albumin/Globulin Ratio (0.9-2) Lipase (11-82) U/L CA 125 Antigen (<35) U/mL Procalcitonin (0-0.5) ng/ml TSH (0.300-4.500) uIu/ml Free T4 (0.61-1.60) ng/dl Urine Color Yellow Urine Appearance Clear (Clear) Urine pH 5.0 (4.5-7.5) Ur Specific [place] 1.025 (1.000-1.030) Urine Protein Negative (Negative) Urine Glucose (UA) Negative (Negative) Urine Ketones Negative (Negative) Urine Blood Trace H (Negative) Urine Nitrite Negative (Negative) Urine Bilirubin Negative (Negative) Urine Urobilinogen Negative (Negative) Ur Leukocyte Esterase Negative (Negative) Urine WBC (Auto) 0-5 (0-5) /hpf Urine RBC (Auto) 3-5 H (0-2) /hpf U Hyaline Cast (Auto) 0-2 (0-2) /lpf U Epithel Cells (Auto) 3-5 H (0-2) /hpf Urine Bacteria (Auto) None Seen (None Seen) Stl C. diff Tox B Gene (Neg) Adenovirus (PCR) (NotDetected) B. pertussis DNA (PCR) (NotDetected) B.parapertussis DNA PCR (NotDetected) C. pneumoniae DNA (PCR) (NotDetected) Coronavirus OC43 (PCR) (NotDetected) Coronavirus HKU1 (PCR) (NotDetected) Coronavirus 229E (PCR) (NotDetected) SARS-CoV-2 (PCR) (NotDetected) Coronavirus NL63 (PCR) (NotDetected) Human Metapneumovir PCR (NotDetected) Influenza Type A (PCR) (NotDetected) Influenza Type B (PCR) (NotDetected) M. pneumoniae (PCR) (NotDetected) Parainfluenza 1 (PCR) (NotDetected) Parainfluenza 2 (PCR) (NotDetected) Parainfluenza 3 (PCR) (NotDetected) Parainfluenza 4 (PCR) (NotDetected) RSV (PCR) (NotDetected) Entero/Rhino (PCR) (NotDetected) Blood Type Blood Type Recheck Antibody Screen Crossmatch 01/21/25 01/21/25 01/21/25 Range/Units 19:11 19:00 18:45 WBC (4.8-10.8) K/ul RBC (4.20-5.40) M/uL Hgb (12.0-16.0) g/dl Hct (37.0-47.0) % MCV (80.0-100.0) fL MCH (25.0-34.0) pg MCHC (32.0-36.0) g/dL RDW Std Deviation (36.4-46.3) fL RDW Coeff of Sol (11.5-14.5) % Plt Count (130-400) K/uL MPV (9.4-12.4) fL Immature Gran % (Auto) % Neut % (Auto) % Lymph % (Auto) % [place] % (Auto) % Eos % (Auto) % Baso % (Auto) % Neut # (Auto) (1.40-6.50) K/uL Lymph # (Auto) (1.20-3.40) K/uL [place] # (Auto) (0.11-0.59) K/uL Eos # (Auto) (0.00-0.50) K/uL Baso # (Auto) (0.00-0.20) K/uL Immature Gran # (Auto) (0.01-0.20) K/uL Absolute Nucleated RBC (0.00-0.12) K/uL Nucleated RBC % (auto) % Neutrophils % (Manual) % Lymphocytes % (Manual) % Monocytes % (Manual) % Eosinophils % (Manual) % Metamyelocytes % (Man) % Neutrophils # (Manual) (1.40-6.50) K/uL Total Absolute Neuts (1.4-6.5) K/uL Lymphocytes # (Manual) (1.2-3.4) K/uL Total Abs Lymphocytes (1.2-3.4) K/uL Monocytes # (Manual) (0.11-0.59) K/uL Eosinophils # (Manual) (0-0.50) K/uL Metamyelocytes # (Man) (0-0) K/uL Hyposegmented Neuts Toxic Granulation Toxic Vacuolation Platelet Estimate (Normal) Polychromasia Target Cells PT (9.0-12.0) Seconds INR (0.9-1.1) APTT (21-31) Seconds PTT Ratio Fibrinogen (184-400) mg/dl Heparin Anti-Xa, Unfract (0.3-0.7) IU/ml Sodium (136-145) mmol/L Potassium (3.5-5.1) mmol/L Chloride (98-107) mmol/L Carbon Dioxide (21-32) mmol/L Anion Gap (3-11) BUN (6-23) mg/dl Creatinine (0.6-1.2) mg/dl Est Cr Clr Drug Dosing ml/min eGFR BUN/Creatinine Ratio (10-20) Glucose (70-99(Fasting)) mg/dl POC Glucose 86 66 L* (70-99) mg/dl Lactate (0.4-2.0) mmol/L Calcium (8.6-10.3) mg/dl Phosphorus (2.5-4.9) mg/dl Magnesium (1.7-2.4) mg/dl Total Bilirubin (0.2-1.0) mg/dl Direct Bilirubin (0-0.2) mg/dl AST (13-39) U/L ALT (7-52) U/L Alkaline Phosphatase (34-104) U/L Troponin I High Sens 229.6 H* D (0-14) pg/ml B-Natriuretic Peptide (0-100) pg/ml Total Protein (6.0-8.3) gm/dl Albumin (3.4-5.0) gm/dl Globulin (2.5-4.0) gm/dl Albumin/Globulin Ratio (0.9-2) Lipase (11-82) U/L CA 125 Antigen (<35) U/mL Procalcitonin (0-0.5) ng/ml TSH (0.300-4.500) uIu/ml Free T4 (0.61-1.60) ng/dl Urine Color Urine Appearance (Clear) Urine pH (4.5-7.5) Ur Specific [place] (1.000-1.030) Urine Protein (Negative) Urine Glucose (UA) (Negative) Urine Ketones (Negative) Urine Blood (Negative) Urine Nitrite (Negative) Urine Bilirubin (Negative) Urine Urobilinogen (Negative) Ur Leukocyte Esterase (Negative) Urine WBC (Auto) (0-5) /hpf Urine RBC (Auto) (0-2) /hpf U Hyaline Cast (Auto) (0-2) /lpf U Epithel Cells (Auto) (0-2) /hpf Urine Bacteria (Auto) (None Seen) Stl C. diff Tox B Gene (Neg) Adenovirus (PCR) (NotDetected) B. pertussis DNA (PCR) (NotDetected) B.parapertussis DNA PCR (NotDetected) C. pneumoniae DNA (PCR) (NotDetected) Coronavirus OC43 (PCR) (NotDetected) Coronavirus HKU1 (PCR) (NotDetected) Coronavirus 229E (PCR) (NotDetected) SARS-CoV-2 (PCR) (NotDetected) Coronavirus NL63 (PCR) (NotDetected) Human Metapneumovir PCR (NotDetected) Influenza Type A (PCR) (NotDetected) Influenza Type B (PCR) (NotDetected) M. pneumoniae (PCR) (NotDetected) Parainfluenza 1 (PCR) (NotDetected) Parainfluenza 2 (PCR) (NotDetected) Parainfluenza 3 (PCR) (NotDetected) Parainfluenza 4 (PCR) (NotDetected) RSV (PCR) (NotDetected) Entero/Rhino (PCR) (NotDetected) Blood Type Blood Type Recheck Antibody Screen Crossmatch 01/21/25 01/21/25 01/21/25 Range/Units 18:44 18:16 15:00 WBC 11.17 H (4.8-10.8) K/ul RBC 4.48 (4.20-5.40) M/uL Hgb 12.3 (12.0-16.0) g/dl Hct 38.7 (37.0-47.0) % MCV 86.4 (80.0-100.0) fL MCH 27.5 (25.0-34.0) pg MCHC 31.8 L (32.0-36.0) g/dL RDW Std Deviation 54.9 H (36.4-46.3) fL RDW Coeff of Sol 17.4 H (11.5-14.5) % Plt Count 310 (130-400) K/uL MPV 10.0 (9.4-12.4) fL Immature Gran % (Auto) 0.4 % Neut % (Auto) 94.8 % Lymph % (Auto) 3.9 % [place] % (Auto) 0.7 % Eos % (Auto) 0.2 % Baso % (Auto) 0.0 % Neut # (Auto) 10.58 H (1.40-6.50) K/uL Lymph # (Auto) 0.44 L (1.20-3.40) K/uL [place] # (Auto) 0.08 L (0.11-0.59) K/uL Eos # (Auto) 0.02 (0.00-0.50) K/uL Baso # (Auto) 0.00 (0.00-0.20) K/uL Immature Gran # (Auto) 0.05 (0.01-0.20) K/uL Absolute Nucleated RBC 0.02 (0.00-0.12) K/uL Nucleated RBC % (auto) 0.2 % Neutrophils % (Manual) % Lymphocytes % (Manual) % Monocytes % (Manual) % Eosinophils % (Manual) % Metamyelocytes % (Man) % Neutrophils # (Manual) (1.40-6.50) K/uL Total Absolute Neuts (1.4-6.5) K/uL Lymphocytes # (Manual) (1.2-3.4) K/uL Total Abs Lymphocytes (1.2-3.4) K/uL Monocytes # (Manual) (0.11-0.59) K/uL Eosinophils # (Manual) (0-0.50) K/uL Metamyelocytes # (Man) (0-0) K/uL Hyposegmented Neuts Toxic Granulation Toxic Vacuolation 1+ Platelet Estimate (Normal) Polychromasia Target Cells 1+ PT 14.6 H (9.0-12.0) Seconds INR 1.4 H (0.9-1.1) APTT 31 (21-31) Seconds PTT Ratio 1.2 Fibrinogen (184-400) mg/dl Heparin Anti-Xa, Unfract (0.3-0.7) IU/ml Sodium 137 (136-145) mmol/L Potassium 3.8 (3.5-5.1) mmol/L Chloride 102 (98-107) mmol/L Carbon Dioxide 34 H (21-32) mmol/L Anion Gap 1 L (3-11) BUN 49 H (6-23) mg/dl Creatinine 1.07 (0.6-1.2) mg/dl Est Cr Clr Drug Dosing 47.5 ml/min eGFR 56.93 BUN/Creatinine Ratio 45.8 H (10-20) Glucose 87 (70-99(Fasting)) mg/dl POC Glucose 65 L* 61 L* (70-99) mg/dl Lactate (0.4-2.0) mmol/L Calcium 8.3 L (8.6-10.3) mg/dl Phosphorus 3.1 (2.5-4.9) mg/dl Magnesium 2.1 (1.7-2.4) mg/dl Total Bilirubin 1.0 (0.2-1.0) mg/dl Direct Bilirubin (0-0.2) mg/dl AST 245 H (13-39) U/L ALT 145 H (7-52) U/L Alkaline Phosphatase 339 H (34-104) U/L Troponin I High Sens 174.8 H* (0-14) pg/ml B-Natriuretic Peptide 243 H (0-100) pg/ml Total Protein 5.3 L (6.0-8.3) gm/dl Albumin 2.6 L (3.4-5.0) gm/dl Globulin 2.7 (2.5-4.0) gm/dl Albumin/Globulin Ratio 1.0 (0.9-2) Lipase 11 (11-82) U/L CA 125 Antigen (<35) U/mL Procalcitonin 0.61 H (0-0.5) ng/ml TSH 4.667 H (0.300-4.500) uIu/ml Free T4 1.05 (0.61-1.60) ng/dl Urine Color Urine Appearance (Clear) Urine pH (4.5-7.5) Ur Specific [place] (1.000-1.030) Urine Protein (Negative) Urine Glucose (UA) (Negative) Urine Ketones (Negative) Urine Blood (Negative) Urine Nitrite (Negative) Urine Bilirubin (Negative) Urine Urobilinogen (Negative) Ur Leukocyte Esterase (Negative) Urine WBC (Auto) (0-5) /hpf Urine RBC (Auto) (0-2) /hpf U Hyaline Cast (Auto) (0-2) /lpf U Epithel Cells (Auto) (0-2) /hpf Urine Bacteria (Auto) (None Seen) Stl C. diff Tox B Gene (Neg) Adenovirus (PCR) (NotDetected) B. pertussis DNA (PCR) (NotDetected) B.parapertussis DNA PCR (NotDetected) C. pneumoniae DNA (PCR) (NotDetected) Coronavirus OC43 (PCR) (NotDetected) Coronavirus HKU1 (PCR) (NotDetected) Coronavirus 229E (PCR) (NotDetected) SARS-CoV-2 (PCR) (NotDetected) Coronavirus NL63 (PCR) (NotDetected) Human Metapneumovir PCR (NotDetected) Influenza Type A (PCR) (NotDetected) Influenza Type B (PCR) (NotDetected) M. pneumoniae (PCR) (NotDetected) Parainfluenza 1 (PCR) (NotDetected) Parainfluenza 2 (PCR) (NotDetected) Parainfluenza 3 (PCR) (NotDetected) Parainfluenza 4 (PCR) (NotDetected) RSV (PCR) (NotDetected) Entero/Rhino (PCR) (NotDetected) Blood Type Blood Type Recheck Antibody Screen Crossmatch 01/21/25 Range/Units 14:00 WBC (4.8-10.8) K/ul RBC (4.20-5.40) M/uL Hgb (12.0-16.0) g/dl Hct (37.0-47.0) % MCV (80.0-100.0) fL MCH (25.0-34.0) pg MCHC (32.0-36.0) g/dL RDW Std Deviation (36.4-46.3) fL RDW Coeff of Sol (11.5-14.5) % Plt Count (130-400) K/uL MPV (9.4-12.4) fL Immature Gran % (Auto) % Neut % (Auto) % Lymph % (Auto) % [place] % (Auto) % Eos % (Auto) % Baso % (Auto) % Neut # (Auto) (1.40-6.50) K/uL Lymph # (Auto) (1.20-3.40) K/uL [place] # (Auto) (0.11-0.59) K/uL Eos # (Auto) (0.00-0.50) K/uL Baso # (Auto) (0.00-0.20) K/uL Immature Gran # (Auto) (0.01-0.20) K/uL Absolute Nucleated RBC (0.00-0.12) K/uL Nucleated RBC % (auto) % Neutrophils % (Manual) % Lymphocytes % (Manual) % Monocytes % (Manual) % Eosinophils % (Manual) % Metamyelocytes % (Man) % Neutrophils # (Manual) (1.40-6.50) K/uL Total Absolute Neuts (1.4-6.5) K/uL Lymphocytes # (Manual) (1.2-3.4) K/uL Total Abs Lymphocytes (1.2-3.4) K/uL Monocytes # (Manual) (0.11-0.59) K/uL Eosinophils # (Manual) (0-0.50) K/uL Metamyelocytes # (Man) (0-0) K/uL Hyposegmented Neuts Toxic Granulation Toxic Vacuolation Platelet Estimate (Normal) Polychromasia Target Cells PT (9.0-12.0) Seconds INR (0.9-1.1) APTT (21-31) Seconds PTT Ratio Fibrinogen (184-400) mg/dl Heparin Anti-Xa, Unfract (0.3-0.7) IU/ml Sodium (136-145) mmol/L Potassium (3.5-5.1) mmol/L Chloride (98-107) mmol/L Carbon Dioxide (21-32) mmol/L Anion Gap (3-11) BUN (6-23) mg/dl Creatinine (0.6-1.2) mg/dl Est Cr Clr Drug Dosing ml/min eGFR BUN/Creatinine Ratio (10-20) Glucose (70-99(Fasting)) mg/dl POC Glucose (70-99) mg/dl Lactate (0.4-2.0) mmol/L Calcium (8.6-10.3) mg/dl Phosphorus (2.5-4.9) mg/dl Magnesium (1.7-2.4) mg/dl Total Bilirubin (0.2-1.0) mg/dl Direct Bilirubin (0-0.2) mg/dl AST (13-39) U/L ALT (7-52) U/L Alkaline Phosphatase (34-104) U/L Troponin I High Sens (0-14) pg/ml B-Natriuretic Peptide (0-100) pg/ml Total Protein (6.0-8.3) gm/dl Albumin (3.4-5.0) gm/dl Globulin (2.5-4.0) gm/dl Albumin/Globulin Ratio (0.9-2) Lipase (11-82) U/L CA 125 Antigen (<35) U/mL Procalcitonin (0-0.5) ng/ml TSH (0.300-4.500) uIu/ml Free T4 (0.61-1.60) ng/dl Urine Color Urine Appearance (Clear) Urine pH (4.5-7.5) Ur Specific [place] (1.000-1.030) Urine Protein (Negative) Urine Glucose (UA) (Negative) Urine Ketones (Negative) Urine Blood (Negative) Urine Nitrite (Negative) Urine Bilirubin (Negative) Urine Urobilinogen (Negative) Ur Leukocyte Esterase (Negative) Urine WBC (Auto) (0-5) /hpf Urine RBC (Auto) (0-2) /hpf U Hyaline Cast (Auto) (0-2) /lpf U Epithel Cells (Auto) (0-2) /hpf Urine Bacteria (Auto) (None Seen) Stl C. diff Tox B Gene (Neg) Adenovirus (PCR) Not Detected (NotDetected) B. pertussis DNA (PCR) Not Detected (NotDetected) B.parapertussis DNA PCR Not Detected (NotDetected) C. pneumoniae DNA (PCR) Not Detected (NotDetected) Coronavirus OC43 (PCR) Not Detected (NotDetected) Coronavirus HKU1 (PCR) Not Detected (NotDetected) Coronavirus 229E (PCR) Not Detected (NotDetected) SARS-CoV-2 (PCR) Not Detected (NotDetected) Coronavirus NL63 (PCR) Not Detected (NotDetected) Human Metapneumovir PCR Not Detected (NotDetected) Influenza Type A (PCR) Not Detected (NotDetected) Influenza Type B (PCR) Not Detected (NotDetected) M. pneumoniae (PCR) Not Detected (NotDetected) Parainfluenza 1 (PCR) Not Detected (NotDetected) Parainfluenza 2 (PCR) Not Detected (NotDetected) Parainfluenza 3 (PCR) Not Detected (NotDetected) Parainfluenza 4 (PCR) Not Detected (NotDetected) RSV (PCR) Not Detected (NotDetected) Entero/Rhino (PCR) Not Detected (NotDetected) Blood Type Blood Type Recheck Antibody Screen Crossmatch Diagnostic Findings Aorta w/Runoff CTA 01/21/25 16:18 EXAM: CT ang AA runof w inc wo ifdon CLINICAL HISTORY: OvCA perit carcinomatosis, Absent R pedal pulses. TECHNIQUE: CT Angiography of abdominal aorta, bilateral iliac and femoropopliteal arterial trees with IV contrast administration. 119ml Optiray 320 One of these 3D techniques was utilized: Maximum Intensity Pixel (MIP), 3D Reconstructed Images, Volume Rendered Images, Surface Shaded Rendering. One of the following dose reduction techniques was utilized for this exam: Automated exposure control, adjustment of the mA and/or kV according to patient size, and use of iterative reconstruction. COMPARISON: Comoared to prior CT 01/02/2025 FINDINGS: Diffuse increase in intimal medial thickness of all examined arteries with no significant stenosis except at the right common iliac artery reaching 75 %. Aorta: The abdominal aorta is normal in caliber. No evidence of aneurysm, dissection, or significant atherosclerotic changes. Aortic bifurcation is unremarkable. Renal Arteries: Renal arteries are normal in size and opacification. No evidence of stenosis or occlusion. Symmetric perfusion of both kidneys. Mesenteric Arteries: Superior mesenteric artery (SMA) and inferior mesenteric artery (RAJNI) are normal in caliber and opacification. No evidence of stenosis or occlusion. Celiac Artery: Celiac artery is normal in caliber and opacification. No evidence of stenosis or occlusion. Iliac Arteries: Common, internal, and external iliac arteries are normal in caliber and opacification. No evidence of stenosis, aneurysm, or occlusion. 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 Femoral Arteries: Common femoral arteries are normal in caliber and opacification. No evidence of stenosis or occlusion. Superficial and deep femoral arteries are normal in appearance. Popliteal Arteries: Popliteal arteries are normal in caliber and opacification. No evidence of stenosis or occlusion. Tibial Arteries: Anterior tibial, posterior tibial, and peroneal arteries are normal in caliber and opacification. No evidence of stenosis or occlusion. Venous Structures: Inferior vena cava (IVC) and major venous structures are normal in caliber and opacification. No evidence of thrombus or obstruction. Liver: Normal size and morphology. Homogeneous enhancement post-contrast. No focal hepatic lesions. Gallbladder and Biliary System: Chlecywtetcomy clips. Dilated intrahepatic and extrahepatic biliary channels. reach CBD 12 mm. Pancreas: Normal size and contour. Homogeneous enhancement post-contrast. No masses or cystic lesions. Spleen: Normal size and appearance. Homogeneous enhancement post-contrast. Adrenal Glands: Normal size and morphology bilaterally. No adrenal masses. Kidneys and Ureters: Normal size, shape, and position of both kidneys. Homogeneous enhancement post-contrast. No renal stones, masses, or hydronephrosis. Ureters are unremarkable. Bladder: Normal in size and wall thickness. No intraluminal masses. Bilateral complex adenxal cystic masses. Normal enhancement post-contrast. Bowel: Normal appearance of the visualized bowel loops. No evidence of obstruction, wall thickening, or abnormal dilatation. Lymph Nodes: No pathologically enlarged lymph nodes in the abdomen or pelvis. Peritoneum: Marked amount of free fluid in abdomen and pelvis with multiple nodules and enhancing omental deposits, largest anterior to the spleen measuring about 10x5.5 cm. Bones: No lytic or sclerotic lesions. Normal alignment and bone density. Soft Tissues: Normal appearance of the visualized soft tissues. IMPRESSION: 1. 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 2. 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 with marked ascites, and enhancing omental deposits, largest anterior to the spleen measuring about 10x5.5 cm., suggest clinical assessment, and tumor markers (unchanged) 3. Dilated intrahepatic and extrahepatic biliary channels. reach CBD 12 mm. Suggest MRCP and clinical assessment (new) Electronically signed by Nohemy Leahy 01-21-2025 8:08 PM Chest CTA 01/21/25 16:18 EXAM: CT angio chest PE protocol CLINICAL HISTORY: SOB, OvCA peritoneal carcinomatosis, r/o PE TECHNIQUE: CT angiography of the chest was performed with the administration of intravenous contrast with the following protocol: axial images with, reconstructed coronal and sagittal images. The contrast-enhanced images were acquired in arterial and venous phases. Intravenous contrast was administered using automated injection techniques. Bolus tracking was employed to optimize arterial phase imaging. One of these 3D techniques was utilized: Maximum Intensity Pixel (MIP), 3D Reconstructed Images, Volume Rendered Images, Surface Shaded Rendering. One of the following dose reduction techniques was utilized for this exam: Automated exposure control, adjustment of the mA and/or kV according to patient size, and use of iterative reconstruction. (CTDI: 23.75 mGy, DLP: 2661.55 mGy*cm) COMPARISON: Comparison is made with 01/02/2025. FINDINGS: Aorta and Great Vessels: Ascending Aorta: Normal in caliber, no aneurysm, dissection, or significant atherosclerosis. Aortic Arch: Normal in caliber, no aneurysm, dissection, or significant atherosclerosis. Descending Aorta: Normal in caliber, no aneurysm, dissection, or significant atherosclerosis. Pulmonary Arteries: The main pulmonary artery and its branches are patent. No evidence of pulmonary embolism or significant stenosis. Heart: Cardiac Chambers: increase cardiac size. Pericardium: No pericardial effusion or thickening. Lungs and Pleura: Bilateral basal consolidations Bilateral moderate pleural effusion with passive atelectasis. Slight compressed lower trachea and bronchi with patent lumen. Mediastinum: No mediastinal mass or abnormal lymphadenopathy. Normal appearance of the trachea and central bronchi. Hilar Structures: Hilar structures are normal without enlargement. Chest Wall: No mass lesions or abnormalities in the chest wall. Vascular Structures: Superior Vena Cava: Patent without evidence of stenosis or thrombus. Inferior Vena Cava: Patent without evidence of stenosis or thrombus. Bones and Soft Tissues: No fractures, lytic, or blastic lesions of the visualized bony structures. Thoracic spondylosis. Soft tissues are unremarkable. IMPRESSION: 1. No pulmonary embolism at the time of the scan. (unchanged) 2. Bilateral moderate pleural effusion with compression collapse of both posterior segments of both lower lobes. (unchanged) 3. Slight compressed lower trachea and bronchi with patent lumen. (unchanged) suggests clinical assessment. 4. Cardiomegaly. (unchanged) Electronically signed by Nohemy Leahy 01-21-2025 7:47 PM Duplex Scan Lower Extremity Artery 01/21/25 18:09 Exam(s): US ARTERIAL RIGHT LOWER EXTREMITY EXAM: US Duplex Right Lower Extremity Arteries CLINICAL HISTORY: Absent right pedal pulses. TECHNIQUE: Real-time duplex ultrasound scan of the right lower extremity arteries integrating B-mode two-dimensional vascular structure, Doppler spectral analysis and color flow Doppler imaging. COMPARISON: No relevant prior studies available. 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 There is multiphasic wave forms of the peak systolic velocity of 72 cm/s. Right superficial femoral artery: The superficial femoral artery is patent with atherosclerotic disease and multiphasic waveforms, with the peak systolic velocities measuring 104 cm/s proximally, 107 cm at the mid segment and 77 cm/s distally. Right popliteal artery: The right popliteal artery demonstrates monophasic waveforms with a peak systolic velocity of between 30-40 cm/s. Right calf/foot arteries: The right posterior tibial artery is not well delineated. No arterial flow noted in this region. The peroneal artery is not clearly delineated. The proximal right anterior tibial artery is patent with monophasic waveforms and peak systolic velocity of 24 cm/s. The mid to distal anterior tibial artery are not clearly delineated and may be occluded. The dorsalis pedis artery is not definitively delineated sonographically. Other arteries: The proximal right profunda femoral artery is patent with biphasic waveforms in the peak systolic velocity of 64 cm/s. Soft tissues: Subcutaneous edema noted at the calf. IMPRESSION: 1. The proximal right anterior tibial artery is patent with monophasic waveforms and peak systolic velocity of 24 cm/s. The mid to distal anterior tibial artery are not clearly delineated and may be occluded. The peroneal and posterior tibial arteries are not identified. The dorsalis pedis artery is not clearly delineated and may be occluded. Recommend further evaluation with CTA or conventional angiography, as clinically indicated. 2. Atherosclerotic disease from the common femoral through the superficial femoral arteries. No elevated velocities to suggest a focal hemodynamic stenosis. The popliteal artery demonstrates monophasic waveforms, but is patent. Electronically signed by: Pato Aldana MD 01/21/25 21:20 PM Venous Doppler Study 01/21/25 18:09 Exam(s): US VENOUS BILATERAL LOWER EXTREMITIES EXAM: US Duplex Bilateral Lower Extremities Veins CLINICAL HISTORY: BLE edema. TECHNIQUE: Real-time duplex ultrasound scan of the bilateral lower extremity veins integrating B-mode two-dimensional vascular structure, Doppler spectral analysis, color flow Doppler imaging and compression. COMPARISON: No relevant prior studies available. FINDINGS: Limitations: Evaluation is reportedly limited by underlying edema. Right deep veins: Unremarkable. No DVT in the right common femoral, femoral, proximal deep femoral or popliteal veins. The veins demonstrate normal color flow, are normally compressible, with normal phasic flow and/or augmentation response. The interrogated calf veins are patent. Right superficial veins: Unremarkable. No thrombus in the saphenofemoral junction. Left deep veins: Unremarkable. No DVT in the left common femoral, femoral, proximal deep femoral or popliteal veins. The veins demonstrate normal color flow, are normally compressible, with normal phasic flow and/or augmentation response. The interrogated calf veins are patent. Left superficial veins: Unremarkable. No thrombus in the saphenofemoral junction. Soft tissues: Diffuse subcutaneous fat stranding noted, most prominent from the knees distally. No loculated fluid collection. No popliteal cyst. IMPRESSION: 1. No evidence for deep vein thrombosis involving the bilateral lower extremities. 2. Bilateral subcutaneous edema. Electronically signed by: Pato Aldana MD 01/21/25 21:16 PM Chest X-Ray 01/23/25 14:55 XR chest 1V portable CLINICAL HISTORY: Post Pleurx placement COMPARISON STUDY: 01/21/2025 FINDINGS: There is stable mild cardiomegaly without pulmonary vascular congestion. There is an interval right pleural catheter at the right base. There is interval resolution of the prior right lung base opacity. No pneumothorax. There is stable hazy opacity at the left base consistent with consolidation and pleural effusion. IMPRESSION: No pneumothorax. ACT 112: Negative or not required by law. Electronically signed by: Oneil Kirby M.D. 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
[2025-01-29 06:36] LABS: ANTI-Xa, UFH(UnfractionatedHep 0.35 IU/ml (0.3-0.7)
--- NOTE | 2025-01-29 09:13 | Hospitalist Progress Note ---
Date of Service January 29, 2025 Assessment & Plan (1) Vascular occlusion: Plan: Presented with pain, pallor and poikilothermia of RLE into foot. Possible vascular occlusion noted on imaging involving mid to distal anterior tibial artery, peroneal and posterior tibia arteries, dorsalis pedis arteries. Over read by vascular surgery of CTA aorta with runoff-with complete R iliac occlusion and infrapop occlusions with minimal runoff to foot. Clinically, foot is ischemic. She was started on a heparin drip and went urgently with vascular surgery on 01/22 for angiography and thrombectomy. An old clot was removed from the right iliac with restored blood flow and some clot was removed from the right leg, however no flow was able to be restored to the right foot. It seemed this had likely been going on for longer than initially thought. Developed bleeding from right groin site through wound VAC placed due to excessive serous drainage on closure. 300 mL EBL during surgery and another 500 mL EBL in the wound vacuum postoperatively. Had brief hypotension which responded to IV fluid bolus and was transfused 1 unit PRBCs on 01/22 Never needed vasopressors and is now stabilized-downgraded out of ICU on 01/23 Blood pressures remain normal but hemoglobin slowly dropping again to 7.3 from wound vacuum and on heparin drip. Hemoglobin also dropping from recent chemotherapy -Continue heparin drip and follow anti-Xa levels -Follow CBC and transfuse if has active bleeding and hemoglobin less than 7-8 -Continue pain control with Tylenol, and change morphine to IV Dilaudid as morphine ineffective -Vascular Surgery Consultation appreciated-not recommending surgery -Continue empiric Zosyn to prevent infection of the ischemic leg -awaiting patient decision to be made comfort care, she is not ready at this time. -Follow up family meeting with palliative care on Monday 01/29 (2) Primary cancer of ovary with widespread metastatic disease: Plan: Patient with diffusely metastatic ovarian cancer with pleural effusions and ascites. Recently started on Chemotherapy-completed 1 cycle and had plan for debulking surgery after first 3 cycles of chemotherapy. With impending leg amputation, chemotherapy would have to be delayed. Appreciate palliative medicine consultation. Appreciate hematology/oncology recommendations -Check [id number] trending downward, patient and her sister are more amenable to undergoing amputation with the hopes to resume chemotherapy in the future -Plan for IR paracentesis due to significant ascites and abdominal distention when more stable-does not need for now -Pleurx catheter placement per pulmonology on 01/23-this has improved her dyspnea -Continue to follow blood counts which are now dropping from chemotherapy-she is now neutropenic-give Neupogen 480 mcg SQ daily x 3 days -Transfuse for hemoglobin less than 7. Hold heparin drip if platelets less than 50K and continuing to have blood from the wound vacuum -Follow CBC, CMP -Palliative medicine following-patient and her sister are considering moving towards comfort measures only rather than leg amputation -Pt is not ready to accept comfort care at this time -will continue to follow with sister who is urging her to reconsider (3) Elevated LFTs: Plan: Total bilirubin, AST, ALT, and alkaline phosphatase all elevated but continue to be trending downward. Most likely side effect of recent chemotherapy. Liver with dilated intra and extrahepatic ducts on CT, history of cholecystectomy. Could get MRCP but unstable at this time to do so. No evidence of cirrhosis. INR is elevated here and during last admission and improved with vitamin K supplementation and is likely from nutritional deficiencies. 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 Her sister has arrived and is here for the next week. Admission and Anticipated Discharge Date Admission Date: January 22, 2025 Subjective Pt still refusing comfort care. She states her pain is under control. Review of Systems Review of Systems: CONST: Negative for fever, body aches and chills. HENT: Negative for neck pain/stiffness, headache, congestion, sore throat, swelling. EYES: Negative for discharge/pain or vision changes. RESP: Negative for cough/hemoptysis and shortness of breath. CV: Negative chest pain, difficulty breathing, palpitations. ABD: Negative pain, nausea, vomiting. : Negative increase frequency, dysuria, blood in urine or stool. MUSC: Negative for muscle aches, edema. SKIN: Negative rash, lesions/sores. NEURO: Negative headache, dizziness, weakness. Physical Exam Physical Exam: GENERAL APPEARANCE NAD, activity normal for age, well developed/ well nourished, no cyanosis, pallor, or diaphoresis. EYES lids/conjunctiva normal. EARS/NOSE/THROAT Mucous membranes moist, nares normal, lips/teeth normal uvula midline without oral pharyngeal erythema, exudate or swelling TMs normal bilaterally. No lymphangitis/lymphedema. HEAD/NECK normocephalic atraumatic, no facial trauma, neck is supple. RESPIRATORY respiratory effort normal, speaks in full sentences, no tripod position, no accessory muscle use. Lungs clear to auscultation without rhonchi, wheezes, rales CARDIAC Regular rate and rhythm, no edema. ABDOMINAL Soft, ND/NT. No evidence of fluid wave. No pulsatile masses on exam, rebound tenderness, Almeida sign or pain over Mcburney's point. MUSCLES/EXTREMITIES No abnormal range of motion, no swelling. SKIN Warm, pink and dry. No rashes, dermatoses, petechiae or lesions. NEUROLOGICAL Speech is clear and appropriate. Normal level of consciousness. Gait and coordination are normal. 5/5 strength in all extremities. PSYCH Normal mood and affect. Judgement/competence is appropriate Results & Data Results & Data Vital Signs (Past 12 Hours) Vital Signs Temp Pulse Resp BP Pulse Ox O2 Del Method 01/29/25 07:58 Room Air 01/29/25 07:46 36.5 C 72 18 112/62 95 Room Air 01/29/25 01:32 Room Air PG Care Time/CCT Total # of Minutes Spent Total Time Spent with Patient: Total time spent is greater than 50% in coordination of care (as documented) at patient's floor/unit and/or counseling patient: Coding Level of Care Code 51198 SUB INP/OBS CARE 2/35MIN Diagnoses Vascular occlusion I99.8 Primary cancer of ovary with widespread metastatic disease C56.9; C80.0 Laterality: unspecified laterality Elevated LFTs R79.89 Pleural effusion J90 (2) Primary cancer of ovary with widespread metastatic disease Laterality: unspecified laterality Qualified Code(s): C56.9 - Malignant neoplasm of unspecified ovary; C80.0 - Disseminated malignant neoplasm, unspecified
--- NOTE | 2025-01-29 11:12 | Palliative Care Progress Note ---
Date of Service January 29, 2025 Assessment & Plan (1) Dyspnea and respiratory abnormalities: Plan: PleurX draining 200ml QOD, will see what output is today (2) Advanced care planning/counseling discussion: Plan: A 60min face to face ACP meeting was held with pt, her sister and 2 family friends: I met with Ms Hannah's family and friends: Ms. Hannah does not have decisional capacity. Her CAM[facility] screen is + and she was unable to demonstrate capacity; she cannot explain her medical issues other than to tell me :I don't want them to take my leg, I want to keep my leg." She could not tell me about her cancer diagnosis other than to say "I know, yes" when I asked her "can you tell me what you understand about your cancer at this point?" I met with Dawn/sister and 2 close personal friends Lashay & her Mingo. We discussed she is no longer a candidate for surgery or chemo. She is transitioning from a process of living to a process of dying. She is no longer able to make decisions and remains confused. All are in agreement to move her to comfort care today. We are stopping non comfort interventions including Abtx and IV Heparin - just finish what is currently in progress. Liberate diet/allow PO as tolerated for comfort. No more labs. For now, continue PleurX drainage every other day, if output starts diminishing, we can stop it. Dawn would like a Rabbi for EOL prayers, so have asked [employer]y to help arrange. Dawn is going back to [place] Tuesday. She would like to speak with today before 1230 re: possible placement, they do not want [facility]. [facility], Dawn said pt has Medicaid and Medicare so hopefully that will allow hospice at [facility]. I advised Dawn if pt declines steadily, to where dc is not safe, then she would remain in house but if she stays the same/not much decline then she would be dc to a chronic level of care for hospice and ongoing CABIN OUTFITTER at a local SNF We will ask for a GIP eval per CABIN OUTFITTER protocol. I am here tomorrow until 3pm and then off through , returning Tuesday. Corine Gracia from my team will see her . (3) Cancer related pain: (4) Cough: (5) Primary cancer of ovary with widespread metastatic disease: (6) Ischemic foot: (7) Palliative care by specialist: Plan Move to CABIN OUTFITTER non CABIN OUTFITTER orders stopped See ACP discussion for details. I have updated nursing and the primary team, nursing, care mgt, edge blacker Thank you for allowing us to participate in the ongoing care of this patient. Please page with any additional concerns. Sandi Kim DNP Director, Palliative Medicine Admission and Anticipated Discharge Date Admission Date: January 22, 2025 Subjective Pt seen and examined at bedside Sister and 2 close family friends also present She is confused She cannot follow discussion She cannot explain her medical issue and the complexity ACP discussion below Review of Systems Review of Systems: Unobtainable due to cognitive status Physical Exam Physical Exam: Elderly female, appears older than stated age, acutely ill, supine in bed. +fatigued, frail appearing, + pallor There is mild bitemporal wasting noted. Respiratory effort mildly increased with a frequent dry but rattly cough. There is no stridor. Lungs are diminished with crackles. No wheeze CV S1-S2, regular rhythm. Abdomen is soft. Bowel sounds are present She is able to weakly move her extremities with +gen weakness. She is not ambulatory Left lower extremity pedal pulse intact, right lower extremity no palpable pulse. Right lower extremity is mottled and cool to touch. BLE 2-3+ edema. Moderately confused CAMICU + Alert to self, wandering focus; cannot tell me date/year/place Results & Data Vital Signs (Past 12 Hours) Vital Signs Temp Pulse Resp BP Pulse Ox O2 Del Method 01/29/25 07:58 Room Air 01/29/25 07:46 36.5 C 72 18 112/62 95 Room Air 01/29/25 01:32 Room Air PG Care Time/CCT Total # of Minutes Spent Total Time Spent with Patient: Total time spent is greater than 50% in coordination of care (as documented) at patient's floor/unit and/or counseling patient: I spent 125 minutes overall addressing this case: 15 min in medical data review/discussion with referring provider(s) and/or preparation for the visit incl d/w oncology and chart review 15 min in direct interaction with the patient/exam 60 min in Advance Care Planning/Goals of Care discussions as detailed above in note (must be >16min) 15 min in subsequent review and synthesis of assessment and plan 20 min communicating with other providers regarding the patient's case: nursing, primary team, care mgt, edge blacker Advanced Care Planning 42828 Advanced Care Planning 30 Min 53746 Advanced Care Planning Additional 30 Min [place] [address] SUB INP/OBS CARE 3/50MIN (25 - SIGNIFICANT, SEPARATELY IDENTIFIABLE ) Patient Type Established Diagnoses Dyspnea and respiratory abnormalities R06.00; R06.89 Advanced care planning/counseling discussion Z71.89 Cancer related pain G89.3 Cough R05.9 Primary cancer of ovary with widespread metastatic disease C56.9; C80.0 Laterality: unspecified laterality Ischemic foot I99.8 Palliative care by specialist Z51.5 Additional Codes Advanced Care Planning - 17397 Advanced Care Planning 30 Min: 30048 Advanced Care Planning 30 Min ([id number]) Advanced Care Planning - 98706 Advanced Care Planning Additional 30 Min: 02428 Advanced Care Planning Additional 30 Min ([id number]) Time Spent (min) 125 Comment [id number], additional time 15min, 60min progress note (5) Primary cancer of ovary with widespread metastatic disease Laterality: unspecified laterality Qualified Code(s): C56.9 - Malignant neoplasm of unspecified ovary; C80.0 - Disseminated malignant neoplasm, unspecified
[2025-01-29] MEDS ORDERED: HYDROmorphone INJ 0.5 MG/0.5 ML SYR IV PRN (11:16)
[2025-01-29] MEDS ORDERED: LORazepam 2 MG/1 ML VIAL IV PRN (11:17)
[2025-01-29] MEDS: HYDROmorphone INJ 0.5 MG/0.5 ML SYR IV PRN (14:39)
--- NOTE | 2025-01-30 10:21 | Hospitalist Progress Note ---
Date of Service January 30, 2025 Assessment & Plan (1) Vascular occlusion: Plan: Presented with pain, pallor and poikilothermia of RLE into foot. Possible vascular occlusion noted on imaging involving mid to distal anterior tibial artery, peroneal and posterior tibia arteries, dorsalis pedis arteries. Over read by vascular surgery of CTA aorta with runoff-with complete R iliac occlusion and infrapop occlusions with minimal runoff to foot. Clinically, foot is ischemic. She was started on a heparin drip and went urgently with vascular surgery on 01/22 for angiography and thrombectomy. An old clot was removed from the right iliac with restored blood flow and some clot was removed from the right leg, however no flow was able to be restored to the right foot. It seemed this had likely been going on for longer than initially thought. Developed bleeding from right groin site through wound VAC placed due to excessive serous drainage on closure. 300 mL EBL during surgery and another 500 mL EBL in the wound vacuum postoperatively. Had brief hypotension which responded to IV fluid bolus and was transfused 1 unit PRBCs on 01/22 Never needed vasopressors and is now stabilized-downgraded out of ICU on 01/23 Blood pressures remain normal but hemoglobin slowly dropping again to 7.3 from wound vacuum and on heparin drip. Hemoglobin also dropping from recent chemotherapy -Continue heparin drip and follow anti-Xa levels -Follow CBC and transfuse if has active bleeding and hemoglobin less than 7-8 -Continue pain control with Tylenol, and change morphine to IV Dilaudid as morphine ineffective -Vascular Surgery Consultation appreciated-not recommending surgery -Continue empiric Zosyn to prevent infection of the ischemic leg -pallative care follow up appreciated -PT has been made comfort care -con't comfort care measures (2) Primary cancer of ovary with widespread metastatic disease: Plan: Patient with diffusely metastatic ovarian cancer with pleural effusions and ascites. Recently started on Chemotherapy-completed 1 cycle and had plan for debulking surgery after first 3 cycles of chemotherapy. With impending leg amputation, chemotherapy would have to be delayed. Appreciate palliative medicine consultation. Appreciate hematology/oncology recommendations -Check [id number] trending downward, patient and her sister are more amenable to undergoing amputation with the hopes to resume chemotherapy in the future -Plan for IR paracentesis due to significant ascites and abdominal distention when more stable-does not need for now -Pleurx catheter placement per pulmonology on 01/23-this has improved her dyspnea -Continue to follow blood counts which are now dropping from chemotherapy-she is now neutropenic-give Neupogen 480 mcg SQ daily x 3 days -Transfuse for hemoglobin less than 7. Hold heparin drip if platelets less than 50K and continuing to have blood from the wound vacuum -Follow CBC, CMP -Palliative medicine following-patient and her sister are considering moving towards comfort measures only rather than leg amputation -Pt is not ready to accept comfort care at this time -will continue to follow with sister who is urging her to reconsider -Pt now comfort care, all medications and tx discontinued. (3) Elevated LFTs: Plan: Total bilirubin, AST, ALT, and alkaline phosphatase all elevated but continue to be trending downward. Most likely side effect of recent chemotherapy. Liver with dilated intra and extrahepatic ducts on CT, history of cholecystectomy. Could get MRCP but unstable at this time to do so. No evidence of cirrhosis. INR is elevated here and during last admission and improved with vitamin K supplementation and is likely from nutritional deficiencies. -Continue to follow LFTs -Consider MRCP if stabilizes -Pt now comfort care, all medications and tx discontinued. (4) Pleural effusion: Plan: Secondary to pleural effusions, not having COPD exacerbation, no need for prednisone or IV Lasix-Pleurx catheter placement on 01/23 on the right, may need Pleurx catheter on the left -Wean off supplemental O2 as able to to keep pulse ox -Pt now comfort care, all medications and tx discontinued. 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 Pt now comfort care, all medications and tx discontinued. Admission and Anticipated Discharge Date Admission Date: January 22, 2025 Subjective Pt appears comfortable this am. Review of Systems Review of Systems: CONST: Negative for fever, body aches and chills. HENT: Negative for neck pain/stiffness, headache, congestion, sore throat, swelling. EYES: Negative for discharge/pain or vision changes. RESP: Negative for cough/hemoptysis and shortness of breath. CV: Negative chest pain, difficulty breathing, palpitations. ABD: Negative pain, nausea, vomiting. : Negative increase frequency, dysuria, blood in urine or stool. MUSC: Negative for muscle aches, edema. SKIN: Negative rash, lesions/sores. NEURO: Negative headache, dizziness, weakness. Physical Exam Physical Exam: GENERAL APPEARANCE NAD, activity normal for age, well developed/ well nourished, no cyanosis, pallor, or diaphoresis. EYES lids/conjunctiva normal. EARS/NOSE/THROAT Mucous membranes moist, nares normal, lips/teeth normal uvula midline without oral pharyngeal erythema, exudate or swelling TMs normal bilaterally. No lymphangitis/lymphedema. HEAD/NECK normocephalic atraumatic, no facial trauma, neck is supple. RESPIRATORY respiratory effort normal, speaks in full sentences, no tripod position, no accessory muscle use. Lungs clear to auscultation without rhonchi, wheezes, rales CARDIAC Regular rate and rhythm, no edema. ABDOMINAL Soft, ND/NT. No evidence of fluid wave. No pulsatile masses on exam, rebound tenderness, Almeida sign or pain over Mcburney's point. MUSCLES/EXTREMITIES No abnormal range of motion, no swelling. SKIN Warm, pink and dry. No rashes, dermatoses, petechiae or lesions. NEUROLOGICAL Speech is clear and appropriate. Normal level of consciousness. Gait and coordination are normal. 5/5 strength in all extremities. PSYCH Normal mood and affect. Judgement/competence is appropriate Results & Data Results & Data Vital Signs (Past 12 Hours) Vital Signs O2 Del Method 01/30/25 07:35 Room Air PG Care Time/CCT Total # of Minutes Spent Total Time Spent with Patient: Total time spent is greater than 50% in coordination of care (as documented) at patient's floor/unit and/or counseling patient: Coding Level of Care Code 98015 SUB INP/OBS CARE 2/35MIN Diagnoses Vascular occlusion I99.8 Primary cancer of ovary with widespread metastatic disease C56.9; C80.0 Laterality: unspecified laterality Elevated LFTs R79.89 Pleural effusion J90 (2) Primary cancer of ovary with widespread metastatic disease Laterality: unspecified laterality Qualified Code(s): C56.9 - Malignant neoplasm of unspecified ovary; C80.0 - Disseminated malignant neoplasm, unspecified
--- NOTE | 2025-01-30 13:15 | Palliative Care Progress Note ---
Date of Service January 30, 2025 Assessment & Plan (1) Dyspnea and respiratory abnormalities: (2) Cancer related pain: (3) Palliative care by specialist: (4) Admission for end of life care: Plan Sister updated Continue IS MANAGER She is not GIP eligible May need SNF placement Thank you for allowing us to participate in the ongoing care of this patient. Please page with any additional concerns. Sandi Kim DNP Director, Palliative Medicine Admission and Anticipated Discharge Date Admission Date: January 22, 2025 Sarwat Nicholson remains on IS MANAGER Has used 5 doses of Dilaudid 0.5mg, total 2.5mg/day Appears comfortable at time of my visit, sister notes she had pain med a little before I arrived Sister is returning to [place] on Tuesday Kirti PO for comfort, no acute complaints Sister Dawn is happy with her comfort, feels this is as peaceful as it can be Review of Systems Review of Systems: All systems reviewed & are unremarkable except as noted in Subjective Physical Exam Physical Exam: Semi reclined in bed bitemp wasting confused but pleasant unable to follow commands neck supple, no stridor chest diminsihed, faint crackles abd distended, mild TTP, BS + Gen weakness RLE darkening rubor, cold to touch, no pulse; toes are turning black, nailbeds are black, sole of right foot is violaceous; the color changes extends to above her ankle and then there is hyperemia and coldness +confused CAMICU++ Results & Data Vital Signs (Past 12 Hours) Vital Signs O2 Del Method 01/30/25 07:35 Room Air PG Care Time/CCT Total # of Minutes Spent Total Time Spent with Patient: Total time spent is greater than 50% in coordination of care (as documented) at patient's floor/unit and/or counseling patient: I spent 75 minutes overall addressing this case: 10 min in medical data review/discussion with referring provider(s) and/or preparation for the visit 20 min in direct interaction with the patient/exam 15 min in Advance Care Planning/Goals of Care discussions as detailed above in note (must be >16min) 15 min in subsequent review and synthesis of assessment and plan 15 min communicating with other providers regarding the patient's case: Coding [place] [address] SUB INP/OBS CARE 3/50MIN (25 - SIGNIFICANT, SEPARATELY IDENTIFIABLE ) Patient Type Established Medical Decision Making High Complexity Diagnoses Dyspnea and respiratory abnormalities R06.00; R06.89 Cancer related pain G89.3 Palliative care by specialist Z51.5 Admission for end of life care Z51.5
[2025-01-30] MEDS: HYDROmorphone INJ 1 MG/ML SYRINGE IV PRN (15:42)
--- NOTE | 2025-01-31 10:36 | Hospitalist Progress Note ---
Date of Service January 31, 2025 Assessment & Plan (1) Vascular occlusion: Plan: Presented with pain, pallor and poikilothermia of RLE into foot. Possible vascular occlusion noted on imaging involving mid to distal anterior tibial artery, peroneal and posterior tibia arteries, dorsalis pedis arteries. Over read by vascular surgery of CTA aorta with runoff-with complete R iliac occlusion and infrapop occlusions with minimal runoff to foot. Clinically, foot is ischemic. She was started on a heparin drip and went urgently with vascular surgery on 01/22 for angiography and thrombectomy. An old clot was removed from the right iliac with restored blood flow and some clot was removed from the right leg, however no flow was able to be restored to the right foot. It seemed this had likely been going on for longer than initially thought. Developed bleeding from right groin site through wound VAC placed due to excessive serous drainage on closure. 300 mL EBL during surgery and another 500 mL EBL in the wound vacuum postoperatively. Had brief hypotension which responded to IV fluid bolus and was transfused 1 unit PRBCs on 01/22 Never needed vasopressors and is now stabilized-downgraded out of ICU on 01/23 Blood pressures remain normal but hemoglobin slowly dropping again to 7.3 from wound vacuum and on heparin drip. Hemoglobin also dropping from recent chemotherapy -Continue heparin drip and follow anti-Xa levels -Follow CBC and transfuse if has active bleeding and hemoglobin less than 7-8 -Continue pain control with Tylenol, and change morphine to IV Dilaudid as morphine ineffective -Vascular Surgery Consultation appreciated-not recommending surgery -Continue empiric Zosyn to prevent infection of the ischemic leg -pallative care follow up appreciated -PT has been made comfort care -con't comfort care measures (2) Primary cancer of ovary with widespread metastatic disease: Plan: Patient with diffusely metastatic ovarian cancer with pleural effusions and ascites. Recently started on Chemotherapy-completed 1 cycle and had plan for debulking surgery after first 3 cycles of chemotherapy. With impending leg amputation, chemotherapy would have to be delayed. Appreciate palliative medicine consultation. Appreciate hematology/oncology recommendations -Check [id number] trending downward, patient and her sister are more amenable to undergoing amputation with the hopes to resume chemotherapy in the future -Plan for IR paracentesis due to significant ascites and abdominal distention when more stable-does not need for now -Pleurx catheter placement per pulmonology on 01/23-this has improved her dyspnea -Continue to follow blood counts which are now dropping from chemotherapy-she is now neutropenic-give Neupogen 480 mcg SQ daily x 3 days -Transfuse for hemoglobin less than 7. Hold heparin drip if platelets less than 50K and continuing to have blood from the wound vacuum -Follow CBC, CMP -Palliative medicine following-patient and her sister are considering moving towards comfort measures only rather than leg amputation -Pt is not ready to accept comfort care at this time -will continue to follow with sister who is urging her to reconsider -Pt now comfort care, all medications and tx discontinued. (3) Elevated LFTs: Plan: Total bilirubin, AST, ALT, and alkaline phosphatase all elevated but continue to be trending downward. Most likely side effect of recent chemotherapy. Liver with dilated intra and extrahepatic ducts on CT, history of cholecystectomy. Could get MRCP but unstable at this time to do so. No evidence of cirrhosis. INR is elevated here and during last admission and improved with vitamin K supplementation and is likely from nutritional deficiencies. -Continue to follow LFTs -Consider MRCP if stabilizes -Pt now comfort care, all medications and tx discontinued. (4) Pleural effusion: Plan: Secondary to pleural effusions, not having COPD exacerbation, no need for prednisone or IV Lasix-Pleurx catheter placement on 01/23 on the right, may need Pleurx catheter on the left -Wean off supplemental O2 as able to to keep pulse ox -Pt now comfort care, all medications and tx discontinued. 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 Pt now comfort care, all medications and tx discontinued. Admission and Anticipated Discharge Date Admission Date: January 22, 2025 Subjective No events overnight. Review of Systems Review of Systems: CONST: Negative for fever, body aches and chills. HENT: Negative for neck pain/stiffness, headache, congestion, sore throat, swelling. EYES: Negative for discharge/pain or vision changes. RESP: Negative for cough/hemoptysis and shortness of breath. CV: Negative chest pain, difficulty breathing, palpitations. ABD: Negative pain, nausea, vomiting. : Negative increase frequency, dysuria, blood in urine or stool. MUSC: Negative for muscle aches, edema. SKIN: Negative rash, lesions/sores. NEURO: Negative headache, dizziness, weakness. Physical Exam Physical Exam: GENERAL APPEARANCE NAD, activity normal for age, well developed/ well nourished, no cyanosis, pallor, or diaphoresis. EYES lids/conjunctiva normal. EARS/NOSE/THROAT Mucous membranes moist, nares normal, lips/teeth normal uvula midline without oral pharyngeal erythema, exudate or swelling TMs normal bilaterally. No lymphangitis/lymphedema. HEAD/NECK normocephalic atraumatic, no facial trauma, neck is supple. RESPIRATORY respiratory effort normal, speaks in full sentences, no tripod p osition, no accessory muscle use. Lungs clear to auscultation without rhonchi, wheezes, rales CARDIAC Regular rate and rhythm, no edema. ABDOMINAL Soft, ND/NT. No evidence of fluid wave. No pulsatile masses on exam, rebound tenderness, Almeida sign or pain over Mcburney's point. MUSCLES/EXTREMITIES No abnormal range of motion, no swelling. SKIN Warm, pink and dry. No rashes, dermatoses, petechiae or lesions. NEUROLOGICAL Speech is clear and appropriate. Normal level of consciousness. Gait and coordination are normal. 5/5 strength in all extremities. PSYCH Normal mood and affect. Judgement/competence is appropriate Results & Data Results & Data Vital Signs (Past 12 Hours) Vital Signs O2 Del Method 01/31/25 07:06 Room Air PG Care Time/CCT Total # of Minutes Spent Total Time Spent with Patient: Total time spent is greater than 50% in coordination of care (as documented) at patient's floor/unit and/or counseling patient: Coding Level of Care Code 29740 SUB INP/OBS CARE 2/35MIN Diagnoses Vascular occlusion I99.8 Primary cancer of ovary with widespread metastatic disease C56.9; C80.0 Laterality: unspecified laterality Elevated LFTs R79.89 Pleural effusion J90 (2) Primary cancer of ovary with widespread metastatic disease Laterality: unspecified laterality Qualified Code(s): C56.9 - Malignant neoplasm of unspecified ovary; C80.0 - Disseminated malignant neoplasm, unspecified
--- NOTE | 2025-01-31 15:04 | Palliative Care Progress Note ---
Date of Service January 31, 2025 Assessment & Plan (1) Palliative care by specialist: Plan: Palliative care will continue to follow for ongoing EOL pt care and family support. (2) Dyspnea and respiratory abnormalities: (3) Cancer related pain: (4) Need for comfort care: Plan: EOL Symptom manamgement: Pain/dyspnea/tachypnea dilaudid 0.2-0.5mg IVP PRN [id number] for mild/severe pain Consider titratable dilaudid drip if pt requires >3 PRN doses in under two consecutive hours. Nausea/vomitting zofran 4mg IVP q4h PRN Agitation ativan 0.5mg IVP q4h PRN Hyperactive delirium haldol 5mg IVP q6h PRN Secretions - if repositioning not effective robinul 0.4mg IV q4h PRN atropine SL 3 drops Q1h PRN Nursing care: Discontinue all medications not directed towards comfort. Detether pt from IV tubing, monitor cables, and check vitals once per shift. Please continue HFNC and titrate down as able for patient comfort. Use medications above PRN for dyspnea/tachypnea and do not increase oxygen once titrated down. Assess q1h for pain/dyspnea and treat accordingly. Plan Sister updated at bedside, pt using minimal PRN comfort medications and is not GIP eligible May need SNF placement Admission and Anticipated Discharge Date Admission Date: January 22, 2025 Subjective Met with pt and her sister at bedside. Pt awake and alert, confused but pleasant. She denies any discomfort. Pt transitioned to [employer] on 01/29/25, using only occasional PRN medications. URIAH. Review of Systems Review of Systems: All systems reviewed & are unremarkable except as noted in Subjective Physical Exam Physical Exam: Constitutional: + cachectic, + frail appearing and comfo rtable Eyes: PERRL, conjunctivae normal, anicteric sclerae ENMT: external ear and nose normal, oropharynx normal Neck: trachea midline, no thyromegaly Respiratory: normal respiratory effort, lungs clear to auscultation Cardiovascular: RRR, no murmur, no edema Gastrointestinal (Abdomen): Inspection/Auscultation: + abdomen distended and normal bowel sounds Musculoskeletal: RLE mottled to above ankle with proximal hyperemia and cold to touch, no pulse; toes black, nailbeds are black Skin: + turgor decreased and + pallor Neurologic: awake and + confused Speech / Cognition: + abnormal cognition Results & Data Vital Signs (Past 12 Hours) Vital Signs O2 Del Method 01/31/25 07:06 Room Air Laboratory Results No further labs or diagnostics in concert with comfort directed care. Diagnostic Findings No further labs or diagnostics in concert with comfort directed care. Medications Administered Current Inpatient Medications Albuterol (Albuterol 0.5% Neb Soln 2.5 Mg/0.5 Ml Vial) 2.5 mg NEB Q2H PRN; Protocol PRN Reason: SOB/Wheeze Stop: 02/21/25 04:56 Last Admin: 01/22/25 05:51 Dose: 2.5 mg Benzocaine (Benzocaine/Menthol 18 Wily/1 Box) 1 wily MT Q1H PRN PRN Reason: Sore Throat Stop: 02/23/25 02:41 Last Admin: 01/24/25 09:23 Dose: 1 wily Benzonatate (Benzonatate 100 Mg Capsule) 100 mg PO TID PRN PRN Reason: cough Stop: 02/21/25 04:56 Last Admin: 01/28/25 20:53 Dose: 100 mg Fluoxetine HCl (Fluoxetine Hcl 20 Mg Cap) 80 mg PO DAILY BELEN Stop: 02/21/25 08:59 Last Admin: 01/31/25 08:42 Dose: 80 mg Glycopyrrolate (Glycopyrrolate 0.2 Mg/Ml Vial) 0.4 mg IV Q4H PRN PRN Reason: Rattling Secretions or Pulm Congestion Stop: 02/28/25 11:11 Guaifenesin/Dextromethorphan (Guaifenesin/Dextrom Syrup 200mg/20mg 10ml Udc) 10 ml PO Q6H PRN PRN Reason: Cough Stop: 02/22/25 16:10 Last Admin: 01/29/25 08:28 Dose: 10 ml Haloperidol (Haloperidol Oral Soln 2 Mg/Ml) 0.5 mg PO Q4H PRN PRN Reason: N/V,agitation,restless Stop: 02/28/25 11:11 Hydromorphone HCl (Hydromorphone Inj 0.5 Mg/0.5 Ml Syr) 0.5 mg IV Q15M PRN PRN Reason: pain,dyspnea,cough Stop: 02/08/25 10:59 Last Admin: 01/31/25 09:24 Dose: 0.5 mg Hydromorphone HCl (Hydromorphone Inj 1 Mg/Ml Syringe) 1 mg IV Q1H PRN PRN Reason: severe pain,terminal dyspnea Stop: 02/12/25 11:16 Last Admin: 01/30/25 15:42 Dose: 1 mg Levothyroxine Sodium (Levothyroxine Sodium 50 Mcg Tablet) [facility] Stop: 02/21/25 06:29 Last Admin: 01/31/25 05:35 Dose: 50 mcg Lorazepam (Lorazepam 2 Mg/1 Ml Vial) 0.5 mg IV Q4H PRN PRN Reason: Anxiety/Agitat,spasms,insomnia Stop: 02/25/25 09:40 Lorazepam (Lorazepam 2 Mg/1 Ml Vial) 1 mg IV Q4H PRN PRN Reason: panic, severe spasms Stop: 02/28/25 11:16 Montelukast Sodium (Montelukast Sodium 10 Mg Tablet) 10 mg PO HS [facility] Stop: 02/21/25 20:59 Last Admin: 01/30/25 21:44 Dose: Not Given Ondansetron HCl (Ondansetron Inj 2 Mg/Ml 2 Ml Vial) 4 mg IV Q6H PRN PRN Reason: Nausea Stop: 02/21/25 04:56 Phenol (Chloraseptic (Phenol) 1.4% Soln 180 Ml Btl) 2 sprays MT Q2H PRN PRN Reason: Sore Throat Stop: 02/23/25 02:41 Last Admin: 01/24/25 03:01 Dose: 2 sprays PG Care Time/CCT Total # of Minutes Spent Total Time Spent with Patient: Total time spent is greater than 50% in coordination of care (as documented) at patient's floor/unit and/or counseling patient: Coding [place] [address] SUB INP/OBS CARE 12/15MIN Patient Type Established History Problem Focused Exam Problem Focused Medical Decision Making Low Complexity Diagnoses Palliative care by specialist Z51.5 Dyspnea and respiratory abnormalities R06.00; R06.89 Cancer related pain G89.3 Need for comfort care
--- NOTE | 2025-02-01 10:45 | Hospitalist Progress Note ---
Date of Service February 01, 2025 Assessment & Plan (1) Vascular occlusion: Plan: Presented with pain, pallor and poikilothermia of RLE into foot. Possible vascular occlusion noted on imaging involving mid to distal anterior tibial artery, peroneal and posterior tibia arteries, dorsalis pedis arteries. Over read by vascular surgery of CTA aorta with runoff-with complete R iliac occlusion and infrapop occlusions with minimal runoff to foot. Clinically, foot is ischemic. She was started on a heparin drip and went urgently with vascular surgery on 01/22 for angiography and thrombectomy. An old clot was removed from the right iliac with restored blood flow and some clot was removed from the right leg, however no flow was able to be restored to the right foot. It seemed this had likely been going on for longer than initially thought. Developed bleeding from right groin site through wound VAC placed due to excessive serous drainage on closure. 300 mL EBL during surgery and another 500 mL EBL in the wound vacuum postoperatively. Had brief hypotension which responded to IV fluid bolus and was transfused 1 unit PRBCs on 01/22 Never needed vasopressors and is now stabilized-downgraded out of ICU on 01/23 Blood pressures remain normal but hemoglobin slowly dropping again to 7.3 from wound vacuum and on heparin drip. Hemoglobin also dropping from recent chemotherapy -Continue heparin drip and follow anti-Xa levels -Follow CBC and transfuse if has active bleeding and hemoglobin less than 7-8 -Continue pain control with Tylenol, and change morphine to IV Dilaudid as morphine ineffective -Vascular Surgery Consultation appreciated-not recommending surgery -Continue empiric Zosyn to prevent infection of the ischemic leg -pallative care follow up appreciated -PT has been made comfort care -con't comfort care measures (2) Primary cancer of ovary with widespread metastatic disease: Plan: Patient with diffusely metastatic ovarian cancer with pleural effusions and ascites. Recently started on Chemotherapy-completed 1 cycle and had plan for debulking surgery after first 3 cycles of chemotherapy. With impending leg amputation, chemotherapy would have to be delayed. Appreciate palliative medicine consultation. Appreciate hematology/oncology recommendations -Check [id number] trending downward, patient and her sister are more amenable to undergoing amputation with the hopes to resume chemotherapy in the future -Plan for IR paracentesis due to significant ascites and abdominal distention when more stable-does not need for now -Pleurx catheter placement per pulmonology on 01/23-this has improved her dyspnea -Continue to follow blood counts which are now dropping from chemotherapy-she is now neutropenic-give Neupogen 480 mcg SQ daily x 3 days -Transfuse for hemoglobin less than 7. Hold heparin drip if platelets less than 50K and continuing to have blood from the wound vacuum -Follow CBC, CMP -Palliative medicine following-patient and her sister are considering moving towards comfort measures only rather than leg amputation -Pt is not ready to accept comfort care at this time -will continue to follow with sister who is urging her to reconsider -Pt now comfort care, all medications and tx discontinued. (3) Elevated LFTs: Plan: Total bilirubin, AST, ALT, and alkaline phosphatase all elevated but continue to be trending downward. Most likely side effect of recent chemotherapy. Liver with dilated intra and extrahepatic ducts on CT, history of cholecystectomy. Could get MRCP but unstable at this time to do so. No evidence of cirrhosis. INR is elevated here and during last admission and improved with vitamin K supplementation and is likely from nutritional deficiencies. -Continue to follow LFTs -Consider MRCP if stabilizes -Pt now comfort care, all medications and tx discontinued. (4) Pleural effusion: Plan: Secondary to pleural effusions, not having COPD exacerbation, no need for prednisone or IV Lasix-Pleurx catheter placement on 01/23 on the right, may need Pleurx catheter on the left -Wean off supplemental O2 as able to to keep pulse ox -Pt now comfort care, all medications and tx discontinued. 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 Pt now comfort care, all medications and tx discontinued. Admission and Anticipated Discharge Date Admission Date: January 22, 2025 Subjective No events overnight. Pt resting comfortably in bed. Review of Systems Review of Systems: CONST: Negative for fever, body aches and chills. HENT: Negative for neck pain/stiffness, headache, congestion, sore throat, swelling. EYES: Negative for discharge/pain or vision changes. RESP: Negative for cough/hemoptysis and shortness of breath. CV: Negative chest pain, difficulty breathing, palpitations. ABD: Negative pain, nausea, vomiting. : Negative increase frequency, dysuria, blood in urine or stool. MUSC: Negative for muscle aches, edema. SKIN: Negative rash, lesions/sores. NEURO: Negative headache, dizziness, weakness. Physical Exam Physical Exam: GENERAL APPEARANCE NAD, activity normal for age, well developed/ well nourished, no cyanosis, pallor, or diaphoresis. EYES lids/conjunctiva normal. EARS/NOSE/THROAT Mucous membranes moist, nares normal, lips/teeth normal uvula midline without oral pharyngeal erythema, exudate or swelling TMs normal bilaterally. No lymphangitis/lymphedema. HEAD/NECK normocephalic atraumatic, no facial trauma, neck is supple. RESPIRATORY respiratory effort normal, speaks in full sentences, no tripod position, no accessory muscle use. Lungs clear to auscultation without rhonchi, wheezes, rales CARDIAC Regular rate and rhythm, no edema. ABDOMINAL Soft, ND/NT. No evidence of fluid wave. No pulsatile masses on exam, rebound tenderness, Almeida sign or pain over Mcburney's point. MUSCLES/EXTREMITIES No abnormal range of motion, no swelling. SKIN Warm, pink and dry. No rashes, dermatoses, petechiae or lesions. NEUROLOGICAL Speech is clear and appropriate. Normal level of consciousness. Gait and coordination are normal. 5/5 strength in all extremities. PSYCH Normal mood and affect. Judgement/competence is appropriate PG Care Time/CCT Total # of Minutes Spent Total Time Spent with Patient: Total time spent is greater than 50% in coordination of care (as documented) at patient's floor/unit and/or counseling patient: Coding Level of Care Code 62863 SUB INP/OBS CARE 235MIN Diagnoses Vascular occlusion I99.8 Primary cancer of ovary with widespread metastatic disease C56.9; C80.0 Laterality: unspecified laterality Elevated LFTs R79.89 Pleural effusion J90 (2) Primary cancer of ovary with widespread metastatic disease Laterality: unspecified laterality Qualified Code(s): C56.9 - Malignant neoplasm of unspecified ovary; C80.0 - Disseminated malignant neoplasm, unspecified
[2025-02-02] MEDS: LORazepam 2 MG/1 ML VIAL IV PRN (08:33)
--- NOTE | 2025-02-02 09:37 | Hospitalist Progress Note ---
Date of Service February 02, 2025 Assessment & Plan (1) Vascular occlusion: Plan: Presented with pain, pallor and poikilothermia of RLE into foot. Possible vascular occlusion noted on imaging involving mid to distal anterior tibial artery, peroneal and posterior tibia arteries, dorsalis pedis arteries. Over read by vascular surgery of CTA aorta with runoff-with complete R iliac occlusion and infrapop occlusions with minimal runoff to foot. Clinically, foot is ischemic. She was started on a heparin drip and went urgently with vascular surgery on 01/22 for angiography and thrombectomy. An old clot was removed from the right iliac with restored blood flow and some clot was removed from the right leg, however no flow was able to be restored to the right foot. It seemed this had likely been going on for longer than initially thought. Developed bleeding from right groin site through wound VAC placed due to excessive serous drainage on closure. 300 mL EBL during surgery and another 500 mL EBL in the wound vacuum postoperatively. Had brief hypotension which responded to IV fluid bolus and was transfused 1 unit PRBCs on 01/22 Never needed vasopressors and is now stabilized-downgraded out of ICU on 01/23 Blood pressures remain normal but hemoglobin slowly dropping again to 7.3 from wound vacuum and on heparin drip. Hemoglobin also dropping from recent chemotherapy -Continue heparin drip and follow anti-Xa levels -Follow CBC and transfuse if has active bleeding and hemoglobin less than 7-8 -Continue pain control with Tylenol, and change morphine to IV Dilaudid as morphine ineffective -Vascular Surgery Consultation appreciated-not recommending surgery -Continue empiric Zosyn to prevent infection of the ischemic leg -pallative care follow up appreciated -PT has been made comfort care -con't comfort care measures (2) Primary cancer of ovary with widespread metastatic disease: Plan: Patient with diffusely metastatic ovarian cancer with pleural effusions and ascites. Recently started on Chemotherapy-completed 1 cycle and had plan for debulking surgery after first 3 cycles of chemotherapy. With impending leg amputation, chemotherapy would have to be delayed. Appreciate palliative medicine consultation. Appreciate hematology/oncology recommendations -Check [id number] trending downward, patient and her sister are more amenable to undergoing amputation with the hopes to resume chemotherapy in the future -Plan for IR paracentesis due to significant ascites and abdominal distention when more stable-does not need for now -Pleurx catheter placement per pulmonology on 01/23-this has improved her dyspnea -Continue to follow blood counts which are now dropping from chemotherapy-she is now neutropenic-give Neupogen 480 mcg SQ daily x 3 days -Transfuse for hemoglobin less than 7. Hold heparin drip if platelets less than 50K and continuing to have blood from the wound vacuum -Follow CBC, CMP -Palliative medicine following-patient and her sister are considering moving towards comfort measures only rather than leg amputation -Pt is not ready to accept comfort care at this time -will continue to follow with sister who is urging her to reconsider -Pt now comfort care, all medications and tx discontinued. (3) Elevated LFTs: Plan: Total bilirubin, AST, ALT, and alkaline phosphatase all elevated but continue to be trending downward. Most likely side effect of recent chemotherapy. Liver with dilated intra and extrahepatic ducts on CT, history of cholecystectomy. Could get MRCP but unstable at this time to do so. No evidence of cirrhosis. INR is elevated here and during last admission and improved with vitamin K supplementation and is likely from nutritional deficiencies. -Continue to follow LFTs -Consider MRCP if stabilizes -Pt now comfort care, all medications and tx discontinued. (4) Pleural effusion: Plan: Secondary to pleural effusions, not having COPD exacerbation, no need for prednisone or IV Lasix-Pleurx catheter placement on 01/23 on the right, may need Pleurx catheter on the left -Wean off supplemental O2 as able to to keep pulse ox -Pt now comfort care, all medications and tx discontinued. 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 Pt now comfort care, all medications and tx discontinued. Pt will likely need SNF placement next week Admission and Anticipated Discharge Date Admission Date: January 22, 2025 Subjective Pt feel anxious this am, request "more space in bed." Review of Systems Review of Systems: CONST: Negative for fever, body aches and chills. HENT: Negative for neck pain/stiffness, headache, congestion, sore throat, swelling. EYES: Negative for discharge/pain or vision changes. RESP: Negative for cough/hemoptysis and shortness of breath. CV: Negative chest pain, difficulty breathing, palpitations. ABD: Negative pain, nausea, vomiting. : Negative increase frequency, dysuria, blood in urine or stool. MUSC: Negative for muscle aches, edema. SKIN: Negative rash, lesions/sores. NEURO: Negative headache, dizziness, weakness. Physical Exam Physical Exam: GENERAL APPEARANCE NAD, activity normal for age, well developed/ well nourished, no cyanosis, pallor, or diaphoresis. EYES lids/conjunctiva normal. EARS/NOSE/THROAT Mucous membranes moist, nares normal, lips/teeth normal uvula midline without oral pharyngeal erythema, exudate or swelling TMs normal bilaterally. No lymphangitis/lymphedema. HEAD/NECK normocephalic atraumatic, no facial trauma, neck is supple. RESPIRATORY respiratory effort normal, speaks in full sentences, no tripod position, no accessory muscle use. Lungs clear to auscultation without rhonchi, wheezes, rales CARDIAC Regular rate and rhythm, no edema. ABDOMINAL Soft, ND/NT. No evidence of fluid wave. No pulsatile masses on exam, rebound tenderness, Almeida sign or pain over Mcburney's point. MUSCLES/EXTREMITIES No abnormal range of motion, no swelling. SKIN Warm, pink and dry. No rashes, dermatoses, petechiae or lesions. NEUROLOGICAL Speech is clear and appropriate. Normal level of consciousness. Gait and coordination are normal. 5/5 strength in all extremities. PSYCH Normal mood and affect. Judgement/competence is appropriate Results & Data Results & Data Vital Signs (Past 12 Hours) Vital Signs O2 Del Method 02/01/25 21:55 Room Air PG Care Time/CCT Total # of Minutes Spent Total Time Spent with Patient: Total time spent is greater than 50% in coordination of care (as documented) at patient's floor/unit and/or counseling patient: Coding Level of Care Code 95242 SUB INP/OBS CARE 2/35MIN Diagnoses Vascular occlusion I99.8 Primary cancer of ovary with widespread metastatic disease C56.9; C80.0 Laterality: unspecified laterality Elevated LFTs R79.89 Pleural effusion J90 (2) Primary cancer of ovary with widespread metastatic disease Laterality: unspecified laterality Qualified Code(s): C56.9 - Malignant neoplasm of unspecified ovary; C80.0 - Disseminated malignant neoplasm, unspecified
[2025-02-02] MEDS: HALOPERIDOL ORAL SOLN 2 MG/ML PO PRN (10:41)
--- NOTE | 2025-02-03 09:18 | Hospitalist Progress Note ---
Date of Service February 03, 2025 Assessment & Plan (1) Vascular occlusion: Plan: Presented with pain, pallor and poikilothermia of RLE into foot. Possible vascular occlusion noted on imaging involving mid to distal anterior tibial artery, peroneal and posterior tibia arteries, dorsalis pedis arteries. Over read by vascular surgery of CTA aorta with runoff-with complete R iliac occlusion and infrapop occlusions with minimal runoff to foot. Clinically, foot is ischemic. She was started on a heparin drip and went urgently with vascular surgery on 01/22 for angiography and thrombectomy. An old clot was removed from the right iliac with restored blood flow and some clot was removed from the right leg, however no flow was able to be restored to the right foot. It seemed this had likely been going on for longer than initially thought. Developed bleeding from right groin site through wound VAC placed due to excessive serous drainage on closure. 300 mL EBL during surgery and another 500 mL EBL in the wound vacuum postoperatively. Had brief hypotension which responded to IV fluid bolus and was transfused 1 unit PRBCs on 01/22 Never needed vasopressors and is now stabilized-downgraded out of ICU on 01/23 Blood pressures remain normal but hemoglobin slowly dropping again to 7.3 from wound vacuum and on heparin drip. Hemoglobin also dropping from recent chemotherapy -Vascular Surgery Consultation appreciated-not recommending surgery -pallative care follow up appreciated -PT has been made comfort care -con't comfort care measures only (2) Primary cancer of ovary with widespread metastatic disease: Plan: Patient with diffusely metastatic ovarian cancer with pleural effusions and ascites. Recently started on Chemotherapy-completed 1 cycle and had plan for debulking surgery after first 3 cycles of chemotherapy. With impending leg amputation, chemotherapy would have to be delayed. Appreciate palliative medicine consultation. Appreciate hematology/oncology recommendations -Check [id number] trending downward, patient and her sister are more amenable to undergoing amputation with the hopes to resume chemotherapy in the future -Plan for IR paracentesis due to significant ascites and abdominal distention when more stable-does not need for now -Pleurx catheter placement per pulmonology on 01/23-this has improved her dyspnea -Continue to follow blood counts which are now dropping from chemotherapy-she is now neutropenic-give Neupogen 480 mcg SQ daily x 3 days -Transfuse for hemoglobin less than 7. Hold heparin drip if platelets less than 50K and continuing to have blood from the wound vacuum -Follow CBC, CMP -Palliative medicine following-patient and her sister are considering moving towards comfort measures only rather than leg amputation -Pt is not ready to accept comfort care at this time -will continue to follow with sister who is urging her to reconsider -Pt now comfort care, all medications and tx discontinued. (3) Elevated LFTs: Plan: Total bilirubin, AST, ALT, and alkaline phosphatase all elevated but continue to be trending downward. Most likely side effect of recent chemotherapy. Liver with dilated intra and extrahepatic ducts on CT, history of cholecystectomy. Could get MRCP but unstable at this time to do so. No evidence of cirrhosis. INR is elevated here and during last admission and improved with vitamin K supplementation and is likely from nutritional deficiencies. -Continue to follow LFTs -Consider MRCP if stabilizes -Pt now comfort care, all medications and tx discontinued. (4) Pleural effusion: Plan: Secondary to pleural effusions, not having COPD exacerbation, no need for prednisone or IV Lasix-Pleurx catheter placement on 01/23 on the right, may need Pleurx catheter on the left -Wean off supplemental O2 as able to to keep pulse ox -Pt now comfort care, all medications and tx discontinued. 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 Pt now comfort care, all medications and tx discontinued. Pt will likely need SNF placement next week. Admission and Anticipated Discharge Date Admission Date: January 22, 2025 Subjective No events overnight. Pt appears comfortable in bed. Review of Systems Review of Systems: CONST: Negative for fever, body aches and chills. HENT: Negative for neck pain/stiffness, headache, congestion, sore throat, swelling. EYES: Negative for discharge/pain or vision changes. RESP: Negative for cough/hemoptysis and shortness of breath. CV: Negative chest pain, difficulty breathing, palpitations. ABD: Negative pain, nausea, vomiting. : Negative increase frequency, dysuria, blood in urine or stool. MUSC: Negative for muscle aches, edema. SKIN: Negative rash, lesions/sores. NEURO: Negative headache, dizziness, weakness. Physical Exam Physical Exam: GENERAL APPEARANCE NAD, activity normal for age, well developed/ well nourished, no cyanosis, pallor, or diaphoresis. EYES lids/conjunctiva normal. EARS/NOSE/THROAT Mucous membranes moist, nares normal, lips/teeth normal uvula midline without oral pharyngeal erythema, exudate or swelling TMs normal bilaterally. No lymphangitis/lymphedema. HEAD/NECK normocephalic atraumatic, no facial trauma, neck is supple. RESPIRATORY respiratory effort normal, speaks in full sentences, no tripod position, no accessory muscle use. Lungs clear to auscultation without rhonchi, wheezes, rales CARDIAC Regular rate and rhythm, no edema. ABDOMINAL Soft, ND/NT. No evidence of fluid wave. No pulsatile masses on exam, rebound tenderness, Almeida sign or pain over Mcburney's point. MUSCLES/EXTREMITIES No abnormal range of motion, no swelling. SKIN Warm, pink and dry. No rashes, dermatoses, petechiae or lesions. NEUROLOGICAL Speech is clear and appropriate. Normal level of consciousness. Gait and coordination are normal. 5/5 strength in all extremities. PSYCH Normal mood and affect. Judgement/competence is appropriate Results & Data Results & Data Vital Signs (Past 12 Hours) Vital Signs Temp Pulse Resp BP Pulse Ox O2 Del Method 02/03/25 07:45 36.3 C L 86 18 147/77 H 95 Room Air 02/02/25 22:00 Room Air PG Care Time/CCT Total # of Minutes Spent Total Time Spent with Patient: Total time spent is greater than 50% in coordination of care (as documented) at patient's floor/unit and/or counseling patient: Coding Level of Care Code 16621 SUB INP/OBS CARE 2/35MIN Diagnoses Vascular occlusion I99.8 Primary cancer of ovary with widespread metastatic disease C56.9; C80.0 Laterality: unspecified laterality Elevated LFTs R79.89 Pleural effusion J90 (2) Primary cancer of ovary with widespread metastatic disease Laterality: unspecified laterality Qualified Code(s): C56.9 - Malignant neoplasm of unspecified ovary; C80.0 - Disseminated malignant neoplasm, unspecified
[2025-02-04] MEDS: fentaNYL 25 MCG/HR TDSY TD SCH (10:37)
--- NOTE | 2025-02-04 12:07 | Hospitalist Progress Note ---
Date of Service February 04, 2025 Assessment & Plan (1) Vascular occlusion: Plan: Right lower extremity. Vascular surgery performed angiography and thrombectomy on January 22. Postprocedure, she developed bleeding from right groin site through wound VAC placed due to excessive serous drainage on closure. 300 mL EBL during surgery and another 500 mL EBL in the wound vacuum postoperatively. Had brief hypotension which responded to IV fluid bolus and was transfused 1 unit PRBCs on 01/22 and was transiently on pressor support. 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 Recently started on Chemotherapy-completed 1 cycle and had plan for debulking surgery after first 3 cycles of chemotherapy. She is now CHAIN TEND[employer] and will not receive any further chemotherapy. She does have a left Pleurx catheter in place for as needed drainage of the malignant left pleural effusion. (3) Elevated LFTs: Plan: Most likely side effect of recent chemotherapy. Liver with dilated intra and extrahepatic ducts on CT, history of cholecystectomy. No evidence of cirrhosis. INR is elevated here and during last admission and improved with vitamin K supplementation and is likely from nutritional deficiencies. (4) Pleural effusion: Plan: Malignant bilateral pleural effusions. Left-sided Pleurx catheter now in place for as needed drainage. Plan CHAIN TENDER. Supportive care. Placement is pending. IV pain control measures have been replaced by topical fentanyl patch and as needed oral Dilaudid which will be continued at the time of discharge. Admission and Anticipated Discharge Date Admission Date: January 22, 2025 Subjective The patient is somewhat lethargic but able to converse and appears to be oriented. I explained to her the need to switch from parenteral pain control measures to a fentanyl patch and as needed oral Dilaudid as this is what she will be on when she leaves this institution. I spoke to her Sister Dawn, by phone. She is comfort measures only and all unnecessary medications have been discontinued. Review of Systems 2 Review of Systems: Constitutionalno fever or chills. She is lethargic from pain medication ENTno blurred vision, no double vision, no epistaxis, no sore throat Respiratoryno cough, no wheezing. She states she feels short of breath with exertion Cardiacno palpitations, no chest pain, no syncope Ann nausea, vomiting, diarrhea, melena, hematochezia. Abdomen is currently not tense GUno urinary retention, no urinary incontinence, no dysuria, no hematuria Musculoskeletalno joint pain, no muscle tenderness Skinno bruising, no rashes, no pruritus Neurono isolated weakness, no paresthesia. She does have generalized weakness Psychno depression, no anxiety Physical Exam 2 Physical Exam: General-lethargic but able to converse and appears to be oriented. No fever HEENT-head atraumatic and normocephalic, pupils equal and reactive to light, extraocular muscles intact Neck-no lymphadenopathy or thyromegaly, trachea midline Chest-diminished breath sounds at the bases. No wheezing. Left sided Pleurx catheter in place Cardiac-regular rate and rhythm, normal S1 and S2 Abdomen-hypoactive bowel sounds. Mild abdominal distention but not tense. Extremities-1+ edema bilateral lower extremities below the knees. Right foot is cool and dusky in appearance Neuro-cranial nerves II through XII intact, motor and sensory function within normal limits, strength symmetrical with generalized weakness, no focal deficits Psych-flat affect Results & Data Results & Data Vital Signs (Past 12 Hours) Vital Signs O2 Del Method 02/04/25 08:49 Room Air 02/04/25 07:51 Room Air Laboratory Results 01/28/25 10:22 01/25/25 07:26 PG Care Time/CCT Total # of Minutes Spent Total Time Spent with Patient: Total time spent is greater than 50% in coordination of care (as documented) at patient's floor/unit and/or counseling patient: Coding Level of Care Code 18333 SUB INP/OBS CARE 3/50MIN Diagnoses Vascular occlusion I99.8 Primary cancer of ovary with widespread metastatic disease C56.9; C80.0 Laterality: unspecified laterality Elevated LFTs R79.89 Pleural effusion J90 (2) Primary cancer of ovary with widespread metastatic disease Laterality: unspecified laterality Qualified Code(s): C56.9 - Malignant neoplasm of unspecified ovary; C80.0 - Disseminated malignant neoplasm, unspecified
[2025-02-04] MEDS: HYDROmorphone HCL 2 MG TAB PO PRN (12:12)
--- NOTE | 2025-02-04 15:01 | Palliative Care Progress Note ---
Date of Service February 04, 2025 Assessment & Plan (1) Palliative care by specialist: Plan: Palliative care will continue to follow for ongoing EOL pt care and family support. (2) Dyspnea and respiratory abnormalities: (3) Cancer related pain: (4) Need for comfort care: Plan: EOL Symptom manamgement: Pain/dyspnea/tachypnea duragesic 25mcg/hr patch Q72h dilaudid 1 mg PO Q3H PRN for BTP Consider titratable dilaudid drip if pt requires >3 PRN doses in under two consecutive hours. Nausea/vomitting zofran 4mg IVP q4h PRN Agitation ativan 0.5mg IVP q4h PRN Hyperactive delirium haldol 5mg IVP q6h PRN Secretions - if repositioning not effective robinul 0.4mg IV q4h PRN atropine SL 3 drops Q1h PRN Nursing care: Discontinue all medications not directed towards comfort. Detether pt from IV tubing, monitor cables, and check vitals once per shift. Please continue HFNC and titrate down as able for patient comfort. Use medications above PRN for dyspnea/tachypnea and do not increase oxygen once titrated down. Assess q1h for pain/dyspnea and treat accordingly. Plan Sister updated at bedside, pt using minimal PRN comfort medications and is not GIP eligible May need SNF placement Admission and Anticipated Discharge Date Admission Date: January 22, 2025 Subjective Met with pt and her sister at bedside. Pt awake and alert, confused but pleasant. She denies any discomfort. 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 URIAH. Review of Systems Review of Systems: All systems reviewed & are unremarkable except as noted in Subjective Physical Exam Physical Exam: Constitutional: + cachectic, + frail appearing and comfo rtable Eyes: PERRL, conjunctivae normal, anicteric sclerae ENMT: external ear and nose normal, oropharynx normal Neck: trachea midline, no thyromegaly Respiratory: normal respiratory effort, lungs clear to auscultation Cardiovascular: RRR, no murmur, no edema Gastrointestinal (Abdomen): Inspection/Auscultation: + abdomen distended and normal bowel sounds Musculoskeletal: RLE mottled to above ankle with proximal hyperemia and cold to touch, no pulse; toes black, nailbeds are black Skin: + turgor decreased and + pallor Neurologic: awake and + confused Speech / Cognition: + abnormal cognition Results & Data Vital Signs (Past 12 Hours) Vital Signs O2 Del Method 02/04/25 08:49 Room Air 02/04/25 07:51 Room Air Laboratory Results No further labs or diagnostics in concert with comfort directed care. Diagnostic Findings No further labs or diagnostics in concert with comfort directed care. Medications Administered Current Inpatient Medications Albuterol (Albuterol 0.5% Neb Soln 2.5 Mg/0.5 Ml Vial) 2.5 mg NEB Q2H PRN; Protocol PRN Reason: SOB/Wheeze Stop: 02/21/25 04:56 Last Admin: 01/22/25 05:51 Dose: 2.5 mg Benzocaine (Benzocaine/Menthol 18 Wily/1 Box) 1 wily MT Q1H PRN PRN Reason: Sore Throat Stop: 02/23/25 02:41 Last Admin: 01/24/25 09:23 Dose: 1 wily Benzonatate (Benzonatate 100 Mg Capsule) 100 mg PO TID PRN PRN Reason: cough Stop: 02/21/25 04:56 Last Admin: 01/28/25 20:53 Dose: 100 mg Fentanyl (Fentanyl 25 Mcg/Hr Tdsy) 1 patch TD Q3D BELEN Stop: 02/18/25 10:29 Last Admin: 02/04/25 10:37 Dose: 1 patch Glycopyrrolate (Glycopyrrolate 0.2 Mg/Ml Vial) 0.4 mg IV Q4H PRN PRN Reason: Rattling Secretions or Pulm Congestion Stop: 02/28/25 11:11 Guaifenesin/Dextromethorphan (Guaifenesin/Dextrom Syrup 200mg/20mg 10ml Udc) 10 ml PO Q6H PRN PRN Reason: Cough Stop: 02/22/25 16:10 Last Admin: 01/29/25 08:28 Dose: 10 ml Haloperidol (Haloperidol Oral Soln 2 Mg/Ml) 0.5 mg PO Q4H PRN PRN Reason: N/V,agitation,restless Stop: 02/28/25 11:11 Last Admin: 02/03/25 20:49 Dose: 0.5 mg Hydromorphone HCl (Hydromorphone Hcl 2 Mg Tab) 1 mg PO Q3H PRN PRN Reason: Pain Stop: 02/18/25 10:28 Last Admin: 02/04/25 12:12 Dose: 1 mg Miscellaneous (Fentanyl Patch Remove & Waste) 1 each N/A Q3D BELEN Stop: 03/06/25 10:29 Last Admin: 02/04/25 10:40 Dose: Not Given Miscellaneous (Check Fentanyl Patch Placement) 1 each N/A QS BELEN Stop: 03/06/25 15:59 Montelukast Sodium (Montelukast Sodium 10 Mg Tablet) 10 mg PO HS BELEN Stop: 02/21/25 20:59 Last Admin: 02/03/25 20:48 Dose: 10 mg Ondansetron HCl (Ondansetron Inj 2 Mg/Ml 2 Ml Vial) 4 mg IV Q6H PRN PRN Reason: Nausea Stop: 02/21/25 04:56 Phenol (Chloraseptic (Phenol) 1.4% Soln 180 Ml Btl) 2 sprays MT Q2H PRN PRN Reason: Sore Throat Stop: 02/23/25 02:41 Last Admin: 01/24/25 03:01 Dose: 2 sprays PG Care Time/CCT Total # of Minutes Spent Total Time Spent with Patient: Total time spent is greater than 50% in coordination of care (as documented) at patient's floor/unit and/or counseling patient: Coding [place] [address] SUB INP/OBS CARE 25MIN Patient Type Established History Problem Focused Exam Problem Focused Medical Decision Making Low Complexity Diagnoses Palliative care by specialist Z51.5 Dyspnea and respiratory abnormalities R06.00; R06.89 Cancer related pain G89.3 Need for comfort care
[2025-02-04] MEDS: CHECK fentaNYL PATCH PLACEMENT SCH (15:32)
[2025-02-04 16:40] VITALS: BP 127/75; PULSE 95; RESP 16; TEMP 97.7; O2SAT 92
[2025-02-05] MEDS ORDERED: STAT IV Infusion **Titration per Protocol STA (07:53)
[2025-02-05] MEDS ORDERED: HYDROmorphone BOLUS from BAG IV PRN (07:53)
--- NOTE | 2025-02-05 07:58 | Communication Note ---
Date of Service: February 05, 2025 Palliative medicine medicine manager stone note, 730am Contacted by nursing that patient is having increasing pain and no relief from current medications. She's crying out in pain and saying "help me help me." Nursing has administered multiple doses of her PRN Dilaudid, as well as her Haldol without lasting relief. Advised placement is pending. Will increase TDF to 50mcg and will add Dilaudid bolus vis comfort care gtt 0.4 mg prn every 15 minutes Bolus by nursing as needed for breakthrough pain or dyspnea. The prn dose of Dilaudid has been changed to 1 mg [id number] until the TIME LOCK EXPERT bolus is set up has started. Haldol has been increased to 1 mg intensol solution, which can be given sublingually. Plan of care discussed and reviewed with nursing, primary team/Dr Mccloud. Would suggest a reevaluation for GIP given her escalating needs and worsening end-of-life pain and discomfort. I will see this patient later today and will update her sister after seeing her. Thank you for allowing us to participate in the ongoing care of this patient. Please page with any additional concerns. Sandi Kmi DNP Director, Palliative Medicine
[2025-02-05] MEDS: HYDROmorphone 100 MG/100 ML BAG IV SCH (09:05)
[2025-02-05] MEDS ORDERED: fentaNYL 50 MCG/HR TDSY TD SCH (09:30)
[2025-02-05] MEDS: fentaNYL 50 MCG/HR TDSY TD SCH (10:32)
--- NOTE | 2025-02-05 12:55 | Hospitalist Progress Note ---
Date of Service February 05, 2025 Assessment & Plan (1) Vascular occlusion: Plan: Right lower extremity. Vascular surgery performed angiography and thrombectomy on January 22. Postprocedure, she developed bleeding from right groin site through wound VAC placed due to excessive serous drainage on closure. 300 mL EBL during surgery and another 500 mL EBL in the wound vacuum postoperatively. Had brief hypotension which responded to IV fluid bolus and was transfused 1 unit PRBCs on 01/22 and was transiently on pressor support. 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 Recently started on Chemotherapy-completed 1 cycle and had plan for debulking surgery after first 3 cycles of chemotherapy. She is now FILLING HAND and will not receive any further chemotherapy. She does have a right Pleurx catheter in place for as needed drainage of the malignant right pleural effusion. (3) Elevated LFTs: Plan: Most likely side effect of recent chemotherapy. Liver with dilated intra and extrahepatic ducts on CT, history of cholecystectomy. No evidence of cirrhosis. INR is elevated here and during last admission and improved with vitamin K supplementation and is likely from nutritional deficiencies. (4) Pleural effusion: Plan: Malignant bilateral pleural effusions. Right-sided Pleurx catheter now in place for as needed drainage. Plan FILLING HAND. Supportive care. Placement is pending. IV pain control measures have been replaced by topical fentanyl patch and as needed oral Dilaudid which will be continued at the time of discharge. Dosages have been uptitrated today, February 05, for better pain control. Admission and Anticipated Discharge Date Admission Date: January 22, 2025 Subjective The patient had recurrent abdominal pain last night and fentanyl patch dosage was increased along with as needed Dilaudid. I spoke to her sister, Dawn, by phone today, February 05, and brought her up-to-date. Case management was notified it to continue to pursue SNF placement. The patient could survive for quite some time with ovarian carcinomatosis of the abdomen and malignant pleural effusions. It is very difficult to say. However, it appears that her is not imminent at this time and placement proceedings should continue in my opinion. Review of Systems 2 Review of Systems: Constitutionalno fever or chills. She is lethargic from pain medication ENTno blurred vision, no double vision, no epistaxis, no sore throat Respiratoryno cough, no wheezing. She states she feels short of breath with exertion Cardiacno palpitations, no chest pain, no syncope Ann nausea, vomiting, diarrhea, melena, hematochezia. Abdomen is currently not tense but distended with malignant ascites GUno urinary retention, no urinary incontinence, no dysuria, no hematuria Musculoskeletalno joint pain, no muscle tenderness Skinno bruising, no rashes, no pruritus Neurono isolated weakness, no paresthesia. She does have generalized weakness Psychno depression, no anxiety Physical Exam 2 Physical Exam: General-lethargic but able to converse and appears to be oriented. No fever HEENT-head atraumatic and normocephalic, pupils equal and reactive to light, extraocular muscles intact Neck-no lymphadenopathy or thyromegaly, trachea midline Chest-diminished breath sounds at the bases. No wheezing. Left sided Pleurx catheter in place Cardiac-regular rate and rhythm, normal S1 and S2 Abdomen-hypoactive bowel sounds. Mild to moderate abdominal distention but not tense. Extremities-1+ edema bilateral lower extremities below the knees. Right foot is cool and dusky in appearance Neuro-cranial nerves II through XII intact, motor and sensory function within normal limits, strength symmetrical with generalized weakness, no focal deficits Psych-flat affect Results & Data Results & Data Vital Signs (Past 12 Hours) Vital Signs O2 Del Method 02/05/25 09:00 Room Air Laboratory Results 01/28/25 10:22 01/25/25 07:26 PG Care Time/CCT Total # of Minutes Spent Total Time Spent with Patient: Total time spent is greater than 50% in coordination of care (as documented) at patient's floor/unit and/or counseling patient: Coding Level of Care Code 95623 SUB INP/OBS CARE 235MIN Diagnoses Vascular occlusion I99.8 Primary cancer of ovary with widespread metastatic disease C56.9; C80.0 Laterality: unspecified laterality Elevated LFTs R79.89 Pleural effusion J90 (2) Primary cancer of ovary with widespread metastatic disease Laterality: unspecified laterality Qualified Code(s): C56.9 - Malignant neoplasm of unspecified ovary; C80.0 - Disseminated malignant neoplasm, unspecified
[2025-02-05] MEDS: HYDROmorphone INJ 0.5 MG/0.5 ML SYR IV PRN (14:26)
[2025-02-05] MEDS: HALOPERIDOL ORAL SOLN 2 MG/ML PO PRN (14:37)
[2025-02-05] MEDS: CHECK fentaNYL PATCH PLACEMENT SCH (16:00)
[2025-02-05] MEDS ORDERED: CHECK fentaNYL PATCH PLACEMENT SCH (16:00)
--- NOTE | 2025-02-05 20:50 | Palliative Care Progress Note ---
Date of Service February 05, 2025 Assessment & Plan (1) Cancer related pain: (2) Dyspnea and respiratory abnormalities: (3) Need for comfort care: (4) Palliative care by specialist: (5) Acute pain of right lower extremity: (6) Cough: (7) Ischemic foot: (8) Primary cancer of ovary with widespread metastatic disease: (9) Peritoneal carcinomatosis: Plan Continue MARKET CONSULTANT Med orders adjusted early this morning On afternoon reassessment, Lyn was less agitated. Continue Haldol and will see how inc dose of TDF is helping tomorrow primary team has been updating sister we will continue to follow Thank you for allowing us to participate in the ongoing care of this patient. Please page with any additional concerns. Sandi Kim DNP Director, Palliative Medicine Admission and Anticipated Discharge Date Admission Date: January 22, 2025 Subjective on MARKET CONSULTANT personal friend Letty at bedside Lyn is more confused, sleeping on and off eventful overnight with increasing restless and agitation, +increasing pain , crying out "help me! Help me!" per nursing RLE necrotic, inc pain oral intake diminishing, per Letty she had a milagros reyna yesterday but not much else. No longer wants any solid foods even her usual favorite of blueberry yogurt Review of Systems Review of Systems: All systems reviewed & are unremarkable except as noted in Subjective and Unobtainable due to cognitive status Physical Exam Physical Exam: Constitutional: + cachectic, + altered mental status, + physical limitations, + frail appearing and cooperative Eyes: PERRL ENMT: MM dry, dentition fair Neck: trachea midline, no thyromegaly Respiratory: + uses accessory muscles, + cough and sy mmetric chest movement Auscultation: + diminished lung sounds Cardiovascular: RRR, no murmur, no edema Gastrointestinal (Abdomen): Inspection/Auscultation: + abdomen distended and normal bowel sounds Musculoskeletal: RLE mottled to above ankle with proximal hyperemia and cold to touch, weeping with gauze dressing intact; there is no pulse; toes black, nailbeds black; foot with violaceous change Skin: + turgor decreased and + pallor Neurologic: awake and + confused Speech / Cognition: + abnormal cognition Results & Data Vital Signs (Past 12 Hours) Vital Signs O2 Del Method 02/05/25 09:00 Room Air PG Care Time/CCT Total # of Minutes Spent Total Time Spent with Patient: Total time spent is greater than 50% in coordination of care (as documented) at patient's floor/unit and/or counseling patient: I spent 80 minutes overall addressing this case: 15 min in medical data review/discussion with referring provider(s) and/or preparation for the visit 25 min in direct interaction with the patient/exam min in Advance Care Planning/Goals of Care discussions as detailed above in note (must be >16min) 15 min in subsequent review and synthesis of assessment and plan 25 min communicating with other providers regarding the patient's case: primary team, nursing [place] [address] SUB INP/OBS CARE 3/50MIN (25 - SIGNIFICANT, SEPARATELY IDENTIFIABLE ) Patient Type Established Medical Decision Making High Complexity Diagnoses Cancer related pain G89.3 Dyspnea and respiratory abnormalities R06.00; R06.89 Need for comfort care Palliative care by specialist Z51.5 Acute pain of right lower extremity M79.604 Cough R05.9 Ischemic foot I99.8 Primary cancer of ovary with widespread metastatic disease C56.9; C80.0 Laterality: unspecified laterality Peritoneal carcinomatosis C78.6 (8) Primary cancer of ovary with widespread metastatic disease Laterality: unspecified laterality Qualified Code(s): C56.9 - Malignant neoplasm of unspecified ovary; C80.0 - Disseminated malignant neoplasm, unspecified
[2025-02-06] MEDS: HYDROmorphone HCL 2 MG TAB PO PRN (05:32)
[2025-02-06] MEDS: ONDANSETRON INJ 2 MG/ML 2 ML VIAL IV PRN (05:47)
[2025-02-06] MEDS: HALOPERIDOL ORAL SOLN 2 MG/ML PO PRN (10:54)
--- NOTE | 2025-02-06 14:14 | Hospitalist Progress Note ---
Date of Service February 06, 2025 Assessment & Plan (1) Vascular occlusion: Plan: Right lower extremity. Vascular surgery performed angiography and thrombectomy on January 22. Postprocedure, she developed bleeding from right groin site through wound VAC placed due to excessive serous drainage on closure. 300 mL EBL during surgery and another 500 mL EBL in the wound vacuum postoperatively. Had brief hypotension which responded to IV fluid bolus and was transfused 1 unit PRBCs on 01/22 and was transiently on pressor support. 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 Recently started on Chemotherapy-completed 1 cycle and had plan for debulking surgery after first 3 cycles of chemotherapy. 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 She does have a right Pleurx catheter in place for as needed drainage of the malignant right pleural effusion, currently every 2 days. She had 500 cc of fluid drained from the right lung yesterday, February 05 (3) Elevated LFTs: Plan: Most likely side effect of recent chemotherapy. Liver with dilated intra and extrahepatic ducts on CT, history of cholecystectomy. No evidence of cirrhosis. INR is elevated here and during last admission and improved with vitamin K supplementation and is likely from underlying malignancy (4) Pleural effusion: Plan: Malignant bilateral pleural effusions. Right-sided Pleurx catheter now in place for as needed drainage every 2 days. She had 500 cc drained from the right lung yesterday, February 05. 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 Supportive care. Placement is pending. IV pain control measures have been replaced by topical fentanyl patch and as needed oral Dilaudid which will be continued at the time of discharge. Dosages were uptitrated on February 05 for better pain control and currently working well. Admission and Anticipated Discharge Date Admission Date: January 22, 2025 Subjective The pain now appears to be controlled. She had an uneventful night. She is somewhat lethargic from pain medication side effects. I spoke to her sister, Dawn, by phone. Unfortunately the right foot is nonviable and developing dry gangrene due to the vascular insufficiency. She is not complaining of any pain however. She had 500 cc drained from the right long through the Pleurx catheter yesterday, February 05. Placement proceedings are underway by case management. Review of Systems 2 Review of Systems: Constitutionalno fever or chills. She is lethargic from pain medication ENTno blurred vision, no double vision, no epistaxis, no sore throat Respiratoryno cough, no wheezing. She states she feels short of breath with exertion Cardiacno palpitations, no chest pain, no syncope Ann nausea, vomiting, diarrhea, melena, hematochezia. Abdomen is currently not tense but distended with malignant ascites GUno urinary retention, no urinary incontinence, no dysuria, no hematuria Musculoskeletalno joint pain, no muscle tenderness. Right foot is nonviable from vascular insufficiency Skinno bruising, no rashes, no pruritus Neurono isolated weakness, no paresthesia. She does have generalized weakness Psychno depression, no anxiety Physical Exam 2 Physical Exam: General-lethargic but able to converse and appears to be oriented. No fever HEENT-head atraumatic and normocephalic, pupils equal and reactive to light, extraocular muscles intact Neck-no lymphadenopathy or thyromegaly, trachea midline Chest-diminished breath sounds at the bases. No wheezing. Right sided Pleurx catheter in place Cardiac-regular rate and rhythm, normal S1 and S2 Abdomen-hypoactive bowel sounds. Mild to moderate abdominal distention but not tense. Extremities-1+ edema bilateral lower extremities below the knees. Right foot is cool and nonviable. Dry gangrene is developing. Neuro-cranial nerves II through XII intact, motor and sensory function within normal limits, strength symmetrical with generalized weakness, no focal deficits Psych-flat affect Results & Data Results & Data Vital Signs (Past 12 Hours) Vital Signs O2 Del Method 02/06/25 10:31 Room Air Laboratory Results 01/28/25 10:22 01/25/25 07:26 PG Care Time/CCT Total # of Minutes Spent Total Time Spent with Patient: Total time spent is greater than 50% in coordination of care (as documented) at patient's floor/unit and/or counseling patient: Coding Level of Care Code 33765 SUB INP/OBS CARE 2/35MIN Diagnoses Vascular occlusion I99.8 Primary cancer of ovary with widespread metastatic disease C56.9; C80.0 Laterality: unspecified laterality Elevated LFTs R79.89 Pleural effusion J90 (2) Primary cancer of ovary with widespread metastatic disease Laterality: unspecified laterality Qualified Code(s): C56.9 - Malignant neoplasm of unspecified ovary; C80.0 - Disseminated malignant neoplasm, unspecified
[2025-02-06] MEDS: GLYCOPYRROLATE 0.2 MG/ML VIAL IV PRN (21:42)
--- NOTE | 2025-02-07 00:27 | Palliative Care Progress Note ---
Date of Service February 07, 2025 Assessment & Plan (1) Acute pain of right lower extremity: Plan: progressive ischemia, no circulation (2) Cancer related pain: (3) Dyspnea and respiratory abnormalities: (4) Need for comfort care: (5) Palliative care by specialist: (6) Cough: (7) Ischemic foot: (8) Primary cancer of ovary with widespread metastatic disease: (9) Peritoneal carcinomatosis: (10) Advanced care planning/counseling discussion: Plan: ACP for 20min telephonic: Her sister Lawson called [facility] office. I updated her about the symptom mgt. She asked about placement and i reviewed the most recent care mgt note with her. Extensive emotional and psychosocial support provided - lawson is struggling with not being able to be here at patient's side and that patient is dying "al one" though her social support network is strong-close friends are here everyday and updating lawson throughout the day. Bark [employer] visits continue per family request. Plan Continue DIRECTOR OF RADIO SERVICES I have adjusted Haldol to 1.5mg to improve her agitation Continue prn Dilaudid, she is averaging 8.5mg IV dilaudid per day TDF was increased yesterday so will give this another day to see how much more relief we can obtain Her sister Lawson called [facility] office. I updated her about the symptom mgt. She asked about placement and i reviewed the most recent care mgt note with her. Extensive emotional and psychosocial support provided - lawson is struggling with not being able to be here at patient's side and that patient is dying "alone" though her social support network is strong-close friends are here everyday and updating lawson throughout the day. Bark Grinder visits continue per family request. [employer] will continue to follow Thank you for allowing us to participate in the ongoing care of this patient. Please page with any additional concerns. Sandi Kim DNP Director, Palliative Medicine Admission and Anticipated Discharge Date Admission Date: January 22, 2025 Subjective DIRECTOR OF RADIO SERVICES confused at baseline but appears less agitated with inc haldol dose, less restless no matter what i ask she replies "yes" or "ok" less crying out from pain reported, some improvement to comfort with TDF dose escalation however MAR indicates she is using more consistent prn dilaudid, total 8.5mg IV for BTP in past 24 hr along with TDF escalation to 75mcg Review of Systems Review of Systems: All systems reviewed & are unremarkable except as noted in Subjective and Unobtainable due to cognitive status Physical Exam Physical Exam: Constitutional: + cachectic, + altered mental status, + physical limitations, + frail appearing and cooperative Eyes: PERRL ENMT: MM dry, dentition fair Neck: trachea midline, no thyromegaly Respiratory: + uses accessory muscles, + cough and sy mmetric chest movement Auscultation: + diminished lung sounds Cardiovascular: RRR, no murmur, no edema Gastrointestinal (Abdomen): Inspection/Auscultation: + abdomen distended (pro gressive ascites) Musculoskeletal: RLE progressively mottled to calf with proximal hyperemia and cold to touch, weeping with gauze dressing intact; there is no pulse; toes black, nailbeds black; foot with violaceous change Skin: + turgor decreased and + pallor Neurologic: awake and + confused Speech / Cognition: + abnormal cognition Results & Data Vital Signs (Past 12 Hours) Vital Signs O2 Del Method 02/06/25 20:40 Room Air PG Care Time/CCT Total # of Minutes Spent Total Time Spent with Patient: Total time spent is greater than 50% in coordination of care (as documented) at patient's floor/unit and/or counseling patient: I spent 65 minutes overall addressing this case: 10 min in medical data review/discussion with referring provider(s) and/or preparation for the visit 15 min in direct interaction with the patient/exam 20 min in Advance Care Planning/Goals of Care discussions as detailed above in note (must be >16min) 10 min in subsequent review and synthesis of assessment and plan 10 min communicating with other providers regarding the patient's case: primary team Advanced Care Planning [id number] Advanced Care Planning 30 Min [place] [address] SUB INP/OBS CARE 3/50MIN (25 - SIGNIFICANT, SEPARATELY IDENTIFIABLE ) Patient Type Established Medical Decision Making High Complexity Diagnoses Acute pain of right lower extremity M79.604 Cancer related pain G89.3 Dyspnea and respiratory abnormalities R06.00; R06.89 Need for comfort care Palliative care by specialist Z51.5 Cough R05.9 Ischemic foot I99.8 Primary cancer of ovary with widespread metastatic disease C56.9; C80.0 Laterality: unspecified laterality Peritoneal carcinomatosis C78.6 Advanced care planning/counseling discussion Z71.89 Additional Codes Advanced Care Planning - 42774 Advanced Care Planning 30 Min: 20728 Advanced Care Planning 30 Min ([id number]) Comment [id number] for ACP (8) Primary cancer of ovary with widespread metastatic disease Laterality: unspecified laterality Qualified Code(s): C56.9 - Malignant neoplasm of unspecified ovary; C80.0 - Disseminated malignant neoplasm, unspecified
--- NOTE | 2025-02-07 03:17 | Death Pronouncement Note ---
Date of Service February 07, 2025 Pronouncement Note Admission Date Admission Date: January 22, 2025 Date and Time of Date of : 02/07/25 Time of : 02:30 PCOD Preliminary cause of : Respiratory arrest Contributing Factors (1) Dyspnea and respiratory abnormalities: (2) Primary cancer of ovary with widespread metastatic disease: (3) Peritoneal carcinomatosis: (4) Ischemic foot: (5) Acute pain of right lower extremity: (6) Cancer related pain: Hospital Course Hospital Course: Lyn Hannah is a 69 year-old female with history of DM, HLP, Asthma/COPD and recently diagnosed widespread metastatic ovarian cancer with carcinomatosis who presented with shortness of breath, cough and wheeze. Patient with a recent history of bilateral pleural effusions with pulmonary edema as well as an ovarian mass with abdominal ascites with omental/peritoneal implants/carcinomatosis. She'd recently had a paracentesis and thoracentesis which revealed malignant cells consistent with metastatic ovarian adenocarcinoma, serous type. After being discharged to [facility] in December, she presented again with worsening shortness of breath, wheezes, worsening abdominal distention and tenderness, and poor appetite. During her stay here vascular surgery was performed in an effort to improve patient's prognosis (including an embolectomy of the r. common iliac artery and attempted embolectomy of the r. infrapopliteal artery). A PleurX drain was placed on the right side of chest for comfort measures to help manage the patient's malignant pleural effusions. 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 Summary Additional details: Resident hospitalist was notified by the nurse that the patient had stopped breathing at 2:30 am. Upon entering the room, the patient's chest was auscultated for breath sounds and heartbeats and none were heard. Neither radial nor carotid pulses could be detected and the patient's pupils were fixed and dilated. Additional Data Confirmation of : no pulse, no respirations, no heart sounds and pupils fixed and dilated Family: contacted Attending/PCP notified?: Yes Attending physician: Phillip Mccloud MD Was code activated?: No Autopsy requested?: No questioned documents examiner notified?: No Organ bank notified?: No
--- NOTE | 2025-02-07 10:14 | Discharge Summary ---
Discharge Summary Date of Service February 07, 2025 Principal Dx & Hospital Course #1 = Principal Diagnosis (1) Vascular occlusion: Right lower extremity. Vascular surgery performed angiography and thrombectomy on January 22. Postprocedure, she developed bleeding from right groin site through wound VAC placed due to excessive serous drainage on closure. 300 mL EBL during surgery and another 500 mL EBL in the wound vacuum postoperatively. Had brief hypotension which responded to IV fluid bolus and was transfused 1 unit PRBCs on 01/22 and was transiently on pressor support. 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 Her right foot is nonviable and developing dry gangrene (2) Primary cancer of ovary with widespread metastatic disease: Patient with diffusely metastatic ovarian cancer with pleural effusions and ascites. Recently started on Chemotherapy-completed 1 cycle and had plan for debulking surgery after first 3 cycles of chemotherapy. 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 She does have a right Pleurx catheter in place for as needed drainage of the malignant right pleural effusion, currently every 2 days. She had 500 cc of fluid drained from the right lung yesterday, February 05 (3) Elevated LFTs: Most likely side effect of recent chemotherapy. Liver with dilated intra and extrahepatic ducts on CT, history of cholecystectomy. No evidence of cirrhosis. INR is elevated here and during last admission and improved with vitamin K supplementation and is likely from underlying malignancy (4) Pleural effusion: Malignant bilateral pleural effusions. Right-sided Pleurx catheter now in place for as needed drainage every 2 days. She had 500 cc drained from the right lung yesterday, February 05. Plan The patient peacefully at 2:30 AM on February 07 Admission HPI Per Admitting Provider Lyn Hannah is a 69yo female with history of DM, HLP, Asthma/COPD and recently diagnosed widespread metastatic ovarian cancer with carcinomatosis presenting with shortness of breath, cough and wheeze. Patient presented to [facility] on 01/01/25 with complaint of shortness of breath. She was found to have bilateral pleural effusions with pulmonary edema as well as an ovarian mass with abdominal ascites with omental/peritoneal implants/ carcinomatosis. She had a paracentesis and thoracentesis performed on 01/03/25 which revealed malignant cells consistent with metastatic ovarian adenocarcinoma, serous type. Patient had a second paracentesis performed on 01/07/25. She had a NM Bone Scan performed on 01/07/25 which did not reveal skeletal metastases. Patient was ultimately discharged on 01/10/25 to [facility]. Patient presents today with worsening shortness of breath and wheeze as well as worsening abdominal distention and tenderness. Patient also with bilateral LE edema and pain, numbness and coldness of her right foot which has been ongoing for the last day. She denies fever, chills, chest pain, palpitations, nausea, vomiting or diarrhea. She has had poor appetite and decreased oral intake. No additional complaints at this time. She has followed up with Oncology and reports receiving 5 chemotherapy treatments with the last being on 01/18/25/ Discharge Exam Not applicable Discharge Plan Discharge Items Patient Disposition: Discharge Diagnosis: Ovarian carcinoma with carcinomatosis and malignant pleural effusion and malignant ascites Other Date/Time: 02/07/25 02:30 Hospital Stay Data Consultations 01/21/25 20:29 ED Decision to Admit Stat 01/21/25 22:06 Consult Vascular Surgery Routine 01/22/25 02:21 Consult Oncology Routine 01/22/25 15:51 Consult Garment Examiner Routine 01/22/25 19:03 Consult Palliative Care Routine Procedures Performed Operation Date: 01/22/25 09:40 Actual Procedures p Open Thrombectomy of Iliac Artery; Right Lower Extremity Mechanical Thrombectomy(Right) - Ismael Grimes MD Diagnostic Imagining Performed 01/21/25 16:18 CT angio chest PE protocol Stat CTA abd aorta runof w con [CT ang AA runof w inc wo ifdon] Stat 01/21/25 18:09 US arterial duplex LE RT Stat US venous doppler LE BI Stat 01/22/25 10:30 EV angio LE RT Routine US EV guide vascular access Routine Total Time Total Time Spent Total Time Spent (In Minutes): 30 minutes Coding Level of Care Code 86865 IN/OBS DISCH 30 MIN/LESS Diagnoses Vascular occlusion I99.8 Primary cancer of ovary with widespread metastatic disease C56.9; C80.0 Laterality: unspecified laterality Elevated LFTs R79.89 Pleural effusion J90
== END 2025-02-07 04:45 | disposition expired | DRG 270 ==
LOC: SUATTDRO → ED 12:55 → EDINP 01-22 01:29 → SUATTDRO 01-22 01:29 → EDINP 01-22 11:15 → 1E 01-22 15:47 → 2S 01-24 14:48 → 3E 01-26 13:29